=== PATIENT | female | born 1940 | race Caucasian/White ===

== ENCOUNTER → 2017-12-12 08:34 | Outpatient (CLI) | payer MEDICARE, BC, SELFPAY ==
[2017-12-12 10:11] LABS: Absolute Lymphocyte Count 1.01 X10^3/ul (0.83-4.51); Absolute Neutrophil Count 2.8 X10^3/uL (2.0-7.7); Basophil# 0.03 X10^3/uL; Basophil% 0.7 % (0-1); Eosinophil# 0.26 X10^3/uL; Eosinophils% 5.8 % (0-5); Hematocrit 37.4 % (37-47); Hemoglobin 11.9 g/dl (12.0-15.0); Lymphocyte # 1.01 X10^3/ul (4.0); Lymphocyte % 22.6 % (19-41); Mean Corp Hgb Conc 31.8 g/gl (32-36); Mean Corpuscular Hgb 28.7 pg (27.0-32.0); Mean Corpuscular Volume 90.3 fL (81-99); Mean Platelet Vol. 11.3 fl (6.2-12.0); Monocyte# 0.41 X10^3/uL; Monocyte% 9.2 % (0-10); Neutrophil # 2.75 X10^3/uL (2.7-7.7); Neutrophil % 61.5 % (47-70); Platelet Count 225 K/mm3 (150-450); RBC Distribution Width CV 14.5 % (11.6-14.6); RBC Distribution Width SD 47.3 fl (35.1-43.9); Red Blood Count 4.14 M/mm3 (4.2-5.4); White Blood Count 4.5 K/mm3 (4.4-11.0)
[2017-12-12 10:12] LABS: POSITIVE COUNT NO; POSITIVE DIFFERENTIAL NO; POSITIVE MORPHOLOGY NO
[2017-12-12 11:01] LABS: ALB/GLOB Ratio 1.1 RATIO (0.9-2.4); AST(SGOT) 12 U/L (15-37); Alanine Aminotransfer ALT/SGPT 10 U/L (13-56); Albumin, Serum 3.4 g/dL (3.2-5.0); Alkaline Phosphatase 49 U/L (45-117); Anion Gap 9 (5-15); BUN 28 mg/dL (7-18); BUN/Creat Ratio 20.1 RATIO (10-20); Calcium,Total 8.4 mg/dL (8.5-10.1); Chloride 111 mmol/L (98-107); Cholesterol 214 mg/dL (200); Creatinine, Serum 1.39 mg/dL (0.55-1.02); EST Glomerular Filtration Rate 39 mL/min (>60); Est Glom Filt Rate - Afr Amer 47 mL/min (>60); Globulin 3.1 g/dL (2.2-4.2); Glucose 85 mg/dL (74-106); High Density Lipoprotein 71 mg/dL; Magnesium 2.4 mg/dL (1.6-2.6); Phosphorus 2.4 mg/dL (2.5-4.9); Potassium 5.1 mmol/L (3.5-5.1); Protein, Total 6.5 g/dL (6.4-8.2); Sodium Level 141 mmol/L (136-145); Thyroid Stim Hormone (TSH) 1.97 uIU/mL (0.358-3.74); Triglycerides 97 mg/dL; Very Low Density Lipoprotein 19 mg/dL (5-40)
[2017-12-14 08:35] LABS: Tacrolimus (FK506) 5.6 ng/mL (2.0-20.0)
== END ==
PROVIDERS: Family Provider Family Medicine; PCP Family Medicine; Visit Provider Family Medicine
DX: T86.10 Unspecified complication of kidney transplant (principal); E03.9 Hypothyroidism, unspecified; D89.9 Disorder involving the immune mechanism, unspecified; Z94.0 Kidney transplant status
CPT/HCPCS: 36415; 80053; 80061; 80197; 82306; 83735; 83970; 84100; 84443; 85025

== ENCOUNTER 2018-03-14 08:20 | Outpatient (RCR) | payer MEDICARE, BC, SELFPAY ==
[2018-03-14 09:23] LABS: Hematocrit 34.1 % (37-47); Mean Corp Hgb Conc 32.3 g/gl (32-36); Mean Corpuscular Hgb 29.6 pg (27.0-32.0); Mean Corpuscular Volume 91.7 fL (81-99); Mean Platelet Vol. 11.5 fl (6.2-12.0); Platelet Count 217 K/mm3 (150-450); RBC Distribution Width CV 14.9 % (11.6-14.6); RBC Distribution Width SD 48.2 fl (35.1-43.9); Red Blood Count 3.72 M/mm3 (4.2-5.4); Scan Indicated on CBC? Y/N NO; White Blood Count 4.5 K/mm3 (4.4-11.0)
[2018-03-14 09:50] LABS: Albumin, Serum 3.4 g/dL (3.2-5.0); BUN 25 mg/dL (7-18); Calcium,Total 8.3 mg/dL (8.5-10.1); Chloride 111 mmol/L (98-107); Creatinine, Serum 1.67 mg/dL (0.55-1.02); EST Glomerular Filtration Rate 32 mL/min (>60); Est Glom Filt Rate - Afr Amer 38 mL/min (>60); Glucose 90 mg/dL (74-106); Phosphorus 2.7 mg/dL (2.5-4.9); Potassium 4.7 mmol/L (3.5-5.1); Sodium Level 142 mmol/L (136-145)
[2018-03-27 11:08] LABS: Tacrolimus (FK506) 4.6 ng/mL (2.0-20.0)
== END 2018-03-14 10:00 | disposition home or self-care (01) ==
LOC: LAB 08:20
PROVIDERS: Family Provider Family Medicine; PCP Family Medicine
DX: Z94.0 Kidney transplant status (principal); D89.9 Disorder involving the immune mechanism, unspecified; D84.9 Immunodeficiency, unspecified
CPT/HCPCS: 36415; 80069; 80197; 85027

== ENCOUNTER 2018-06-14 09:04 | Outpatient (RCR) | payer MEDICARE, BC, SELFPAY ==
[2018-06-14 09:50] LABS: Absolute Lymphocyte Count 1.05 X10^3/ul (0.83-4.51); Absolute Neutrophil Count 2.8 X10^3/uL (2.0-7.7); Basophil# 0.03 X10^3/uL; Basophil% 0.6 % (0-1); Eosinophil# 0.34 X10^3/uL; Eosinophils% 7.1 % (0-5); Hematocrit 36.1 % (37-47); Hemoglobin 11.5 g/dl (12.0-15.0); Lymphocyte # 1.05 X10^3/ul (4.0); Mean Corp Hgb Conc 31.9 g/gl (32-36); Mean Corpuscular Hgb 28.8 pg (27.0-32.0); Mean Corpuscular Volume 90.5 fL (81-99); Mean Platelet Vol. 10.7 fl (6.2-12.0); Monocyte# 0.55 X10^3/uL; Monocyte% 11.5 % (0-10); Neutrophil % 58.6 % (47-70); Platelet Count 226 K/mm3 (150-450); RBC Distribution Width CV 14.4 % (11.6-14.6); RBC Distribution Width SD 47.6 fl (35.1-43.9); Red Blood Count 3.99 M/mm3 (4.2-5.4); White Blood Count 4.8 K/mm3 (4.4-11.0)
[2018-06-14 09:53] LABS: POSITIVE COUNT NO; POSITIVE DIFFERENTIAL NO; POSITIVE MORPHOLOGY NO
[2018-06-14 10:06] LABS: Albumin, Serum 3.4 g/dL (3.2-5.0); BUN 35 mg/dL (7-18); BUN/Creat Ratio 22.3 RATIO (10-20); Calcium,Total 8.2 mg/dL (8.5-10.1); Chloride 112 mmol/L (98-107); Creatinine, Serum 1.57 mg/dL (0.55-1.02); EST Glomerular Filtration Rate 34 mL/min (>60); Est Glom Filt Rate - Afr Amer 41 mL/min (>60); Glucose 91 mg/dL (74-106); Phosphorus 2.8 mg/dL (2.5-4.9); Potassium 4.7 mmol/L (3.5-5.1); Sodium Level 142 mmol/L (136-145)
== END 2018-06-14 10:00 | disposition home or self-care (01) ==
LOC: LAB 09:04
PROVIDERS: Family Provider Family Medicine; PCP Family Medicine
DX: Z94.0 Kidney transplant status (principal); D89.9 Disorder involving the immune mechanism, unspecified
CPT/HCPCS: 36415; 80069; 80197; 85025

== ENCOUNTER → 2018-07-23 14:35 | Outpatient (CLI) | payer MEDICARE, BC, SELFPAY ==
--- NOTE | 2018-07-23 14:36 | BI_ITS ---
MAMMOGRAPHY - BILATERAL SCREENING 3-D CECILIA SYNTHESIS REASON FOR EXAM: Female, 77 years old. Bilateral Screening 3-D tomosynthesis PERTINENT HISTORY: Asymptomatic. Left upper arm fistula has been removed since 2011. 2 kidney transplants. No significant family history. TECHNIQUE: 2-D mammograms and 3-D Cecilia synthesis of the breast (s) were performed. CAD was performed. COMPARISON: 06/13/2017, 05/03/2015 and 04/28/2014. FINDINGS: The breast composition is heterogeneously dense that can obscure small breast masses. Scattered numerous benign appearing mostly vascular calcifications are seen. No dense spiculated dominant masses or suspicious microcalcification cluster are identified. No new architectural distortion, asymmetric density, adenopathy, skin thickening or nipple retraction identified. No change subareolar heterogeneous increased density bilaterally. BI/SCREENING MAMM (CAD), BILAT IMPRESSION: No mammographic sign of malignancy. Routine yearly mammograms recommended. ASSESSMENT CATEGORY: BIRADS Category 2: Benign. A letter regarding these results will be sent to the patient by the facility within 30 days. FOLLOW UP RECOMMENDATION: Yearly follow up mammogram recommended. (A) Negative mammographic results should not deter biopsy as any palpable lesion if present should be followed based on clinical grounds and biopsy performed if clinically persistent for 3 months or increasing size. Approximately 10% of breast cancers are not detected by mammography. A normal mammogram should not delay biopsy of a clinically suspicious abnormality. Dense breast tissue may obscure neoplasm. Electronically Signed: Francis Khalil, at 20:28 EDT Tel , Service support ,
== END ==
PROVIDERS: Family Provider Family Medicine; PCP Family Medicine; Referring Provider Family Medicine; Visit Provider Family Medicine
DX: Z12.31 Encounter for screening mammogram for malignant neoplasm of breast (principal)
CPT/HCPCS: 77063; 77067

== ENCOUNTER 2018-09-15 08:52 | Outpatient (RCR) | payer MEDICARE, BC, SELFPAY ==
[2018-09-15 09:32] LABS: Hematocrit 35.5 % (37-47); Hemoglobin 11.6 g/dl (12.0-15.0); Mean Corp Hgb Conc 32.7 g/gl (32-36); Mean Corpuscular Hgb 29.5 pg (27.0-32.0); Mean Corpuscular Volume 90.3 fL (81-99); Mean Platelet Vol. 10.7 fl (6.2-12.0); Platelet Count 229 K/mm3 (150-450); RBC Distribution Width CV 14.3 % (11.6-14.6); RBC Distribution Width SD 47.6 fl (35.1-43.9); Red Blood Count 3.93 M/mm3 (4.2-5.4); White Blood Count 4.5 K/mm3 (4.4-11.0)
[2018-09-15 09:35] LABS: Scan Indicated on CBC? Y/N NO
[2018-09-15 09:47] LABS: Protein, Urine (Random) 226.1 mg/dL (<11.9); Protein:Creat Ratio 3277 mg/g CRE (0-200)
[2018-09-15 09:58] LABS: Albumin, Serum 3.4 g/dL (3.2-5.0); BUN 31 mg/dL (7-18); BUN/Creat Ratio 18.8 RATIO (10-20); Calcium,Total 9.2 mg/dL (8.5-10.1); Chloride 105 mmol/L (98-107); Creatinine, Serum 1.65 mg/dL (0.55-1.02); EST Glomerular Filtration Rate 32 mL/min (>60); Est Glom Filt Rate - Afr Amer 39 mL/min (>60); Glucose 91 mg/dL (74-106); Phosphorus 4.4 mg/dL (2.5-4.9); Potassium 4.6 mmol/L (3.5-5.1); Sodium Level 138 mmol/L (136-145)
[2018-09-18 08:55] LABS: Tacrolimus (FK506) 4.8 ng/mL (2.0-20.0)
--- OUTSIDE RECORDS SUMMARY | 2018-11-08 11:00 | XMS RPT_ITS ---
:1940 Author Organization OHIP Care Team Providers Name Role Phone MD EDNA KEVIN Admitting Unavailable MD EDNA KEVIN Attending Unavailable Dr. Bogdan Ware Referring Unavailable Madelyn, Kristen Primary Care Unavailable See, Osman Primary Care Unavailable Esa Osman Attending Unavailable See, Osman Referring Unavailable WILMAN MORATAYA Referring Unavailable See, Osman Primary Care Unavailable WILMAN MORATAYA Attending Unavailable WILMAN MORATAYA Attending Unavailable WILMAN MORATAYA Referring Unavailable See, Osman Primary Care Unavailable WILMAN MORATAYA Attending Unavailable WILMAN MORATAYA Referring Unavailable See, Osman Primary Care Unavailable See Osman Attending Unavailable See, Osman Referring Unavailable See, Osman Primary Care Unavailable PAPMARISSA HANNA Admitting Unavailable PAPOURLILI, MARISSA LONG Attending Unavailable PAPOURLILI, MARISSA LONG Admitting Unavailable PAPOURLILI, MARISSA LONG Attending Unavailable PAPOURLILI, MARISSA LONG Admitting Unavailable PAPOURLILI, MARISSA LONG Attending Unavailable PAPOURAS, MARISSA LONG Attending Unavailable OSMAN SEE Referring Unavailable [place] Admitting Unavailable [place] Attending Unavailable OSMAN SEE A Primary Care Unavailable [place] Admitting Unavailable [place] Attending Unavailable OSMAN SEE A Primary Care Unavailable [place] Admitting Unavailable [place] Attending Unavailable OSMAN SEE A Primary Care Unavailable [place] Attending Unavailable ESA, OSMAN A Referring Unavailable SEE, OSMAN A Primary Care Unavailable PROBLEMS PROBLEMS DATE TYPE CONDITION / CODE ATTENDING STATUS SOURCE 07/16/2018 Unknown Z94.0 - Kidney WILMAN MORATAYA Active [facility] transplant status / Community Z94.0(ICD-10) Hospital Repository 07/16/2018 Unknown D89.9 - Disorder WILMAN MORATAYA Active [facility] involving the Community immune mechanism, Hospital unspecified / Repository D89.9(ICD-10) 08/20/2016 Active Corral's esophagus PAPOURAS, Active [facility] without dysplasia / [facility] Other K22.70(ICD-10) [place] Repository 03/12/2018 Active Gastro-esophageal PAPOURAS, Active [facility] reflux disease with [facility] Other esophagitis / [place] K21.0(ICD-10) Repository 12/25/2017 Active Gastro-esophageal PAPOURAS, Active [facility] reflux disease [facility] Other without esophagitis [place] / K21.9(ICD-10) Repository 06/12/2018 Unknown T86.10 - Osman See Active [facility] Unspecified Community complication of Hospital kidney transplant / Repository T86.10(ICD-10) 10/22/2017 Active Diaphragmatic PAPOURAS, Active [facility] hernia without [facility] Other obstruction or [place] gangrene / Repository K44.9(ICD-10) 10/22/2017 Admitting Unknown / [place] Active [facility] diagnosis UNK(Unknown) [facility] Repository PROCEDURES PROCEDURES No Procedure Records FoundRESULTS RESULTS [facility]CO Observed: 09/12/2018 Status: COMPLETED Source: [facility] 12:00 AM [facility] REPOSITORY Letter Text Marissa Apple MD [address] [address] Dept: [phone] Dept September 12, 2018 Re: Julee Lincoln : [address] Osman See, This letter is to request MEDICAL clearance for the above named patient. Patient is scheduled for surgery on: 10/23/18 Type of surgery to be performed is: laparoscopic Asad fundoplication with hiatal hernia repair with possible mesh and an EGD and will be performed under general anesthesia. Thank you, Joann Diaz, RUPA for Marissa Apple MD Patient is considered: ____Low Risk ____Intermediate Risk ____High Risk Reason: Signature of Physician Date Please fax back as soon as possible to [phone]. CNPN Observed: 09/12/2018 Status: COMPLETED Source: [facility] 12:00 AM [facility] OTHER CAMPUS REPOSITORY Telephone ([facility]) JULEE LINCOLN ([id number]) 1940 Elysia JOLLY Date Time Provider Department 09/12/18 MARISSA APPLE [facility] During your visit today, we recorded the following information about you: Joann Diaz RN 09/12/2018 11:06 AM Signed Julee called today with a few questions on her mind in light of her pending lap Asad scheduled on 10/23/18. Her first concern was making sure that Dr. See has the paperwork for her medical clearance for her surgery. She has an appointment with him in the next week. I told her I would fax over the letter today. Julee's second concern is keeping her transplanted kidney safe during and after surgery. I recommended that she bring her own anti-rejection medications, so there is no delay and she can take her medications on time. We also discussed the need for PPIs after the Asad in light of her Corral's history. Julee is very concerned about taking daily PPIs and currently manages her GERD by taking a daily famotidine and if she is eating any trigger foods, then she takes a proton pump inhibitor, so typically she take a proton pump inhibitor twice a week. I told her I believed Dr. Apple will recommend medication after surgery, but I would ask him if it will be a proton pump inhibitor vs. an H2 carson. Julee's last question was whether she is staying overnight. I told her that in light of her age and transplanted kidney, I am fairly certain we will keep her to monitor her overnight. I told Julee I will get back to her with the answer about what medications we plan for her to take after surgery. She agreed with the plan. Pre-op clearance letter to Dr. Osman See faxed. Joann Apple MD 09/12/2018 12:08 PM Signed Given her renal issues, I would just recommend an H2 carson not a PPI. Joann Diaz RN 09/19/2018 12:28 PM Signed I called Julee and left her a message stating Dr. Apple recommends her maintanence GERD medication should be a H2 carson, like ranitidine, instead of a proton pump inhibitor, like Nexium. I left my contact information if she has any other questions. Joann Diaz RN Allergies As of Date: 09/12/2018 (No Known Allergies) Date Reviewed: 03/12/2018 Reviewed by: Marissa Apple - Fully Assessed Reason for Visit: Patient Question [8857] Prescriptions as of 09/12/2018 Sig: XANAX ORAL Take by mouth daily at bedtim* ESOMEPRAZOLE MAGNESIUM 20 MG * Take 1 capsule by mouth once * SUCRALFATE 1 GRAM TABLET Take 1 tablet by mouth before* ESOMEPRAZOLE MAGNESIUM 40 MG * Take 1 capsule by mouth once * FAMOTIDINE 40 MG TABLET Take 40 mg by mouth once cyndie* LISINOPRIL 2.5 MG TABLET Take 2.5 mg by mouth once ines* MAGNESIUM HYDROXIDE 400 MG (1* Take by mouth. MYCOPHENOLATE MOFETIL 500 MG * Take 2 tablets by mouth twice* TACROLIMUS 1 MG CAPSULE 2mg twice daily CHOLECALCIFEROL (VITAMIN D3) * Take 1,000 Units by mouth onc* * LEVOTHYROXINE 75 MCG TABLET Take one(1) tablet daily. 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 Gastroesophageal reflux disease [K21.9] INVALID FOR* More... Hiatal hernia [K44.9] INVALID FOR* More... GERD with esophagitis [K21.0] INVALID FOR* More... Encounter Status:Closed by JOANN DIAZ on 09/12/18 ESTABLISHED VISIT Observed: 08/20/2018 Status: UNK Source: [facility] (NEPHROLOGY) 11:06 AM [facility] REPOSIT[facility] Chief Complaint Patient is here to follow up S/P kidney transplant surgery History of Present Illness This is a 76 year old White female with past medical history significant for hypertension, dyslipidemia and End Stage Renal Disease secondary to unknown etiology. Patient underwent the 1st dono r renal transplant on 01/12/2009. The first kidney allograft got thrombosed and was removed right after surgery. Then she received the 2nd donor renal transplant, PHARMACY RESIDENT donor, on 03/08/2011. The sec ond kidney allograft is now about 6 year old. Baseline creatinine had been around 1.4-1.6. Julee had radiofrequency ablation procedures currently at [facility] for Corral's esophagus. She is going to have hiatal hernia surgery at [facility] on 10/23/2018. Patient is doing well overall. No new complaints. Denied chest pain, SOB, PATEL, Palpitation. Normal urination and bowel movement. Normal gait and no weakness of arms/legs. No cough, runny nose, sore thro at, cold symptoms, or rash. No hearing loss. Normal vision.No problems with his sleep, mood and function. No recent infection, hospitalization, surgery or ER visits. ROS : Review of system (14 systems) was done. See HPI. Otherwise were negative. Past medical Hx, Past Surgical Hx were reviewed. Pertinent history was mentioned in HPI. Family hx - no family hx of kidney disease Social hx - no hx of active smoking , alcohol and drug abuse Current med list and allergy hx - were reviewed There are no spiritual/cultural practices/values/needs that are important to know Initial Fall Risk Screening: The patient is not using an assistive device. Domestic Violence Screen: Does not feel threatened or abused physically, emotionally or sexually. Do you feel UNSAFE? The patient feels safe in the home. Depression/Suicide Screening: During the past 2 weeks, the patient has not felt down, depressed or hopeless. During the past 2 weeks, the patient has not felt little interest or pleasure in doing things. She has no thoughts of harming self. She has not had thoughts of harming others. Nutrition Screening: In the past month, there was not a day when I or anyone in my family went hungry because there was not enough food. Active Problems Immunosuppression (279.9) (D89.9) Kidney replaced by transplant (V42.0) (Z94.0) Added by Problem List Migration; 2013-05-08; Moved to [facility] Sep 06 2013 4:40PM Proteinuria (791.0) (R80.9) Screening for blood or protein in urine (V82.9) (Z13.89) Allergies No Known Drug Allergies Recorded By: Feli Hodgson; 06/03/2015 3:36:10 PM Current Meds Mycophenolate Mofetil 250 MG Oral Capsule; take 2 by mouth twice a day; Therapy: 03Jun2015 to (Evaluate:17Aug2018) Requested for: 25Oct2017; Last Rx:22Aug2017 Ordered Rx By: Edna Kevin; Dispense: 30 Days ; #:120 Capsule; Refill: 11;For: Kidney replaced by transplant; OMAR = N; Verified Transmission to [facility] Prograf 1 MG Oral Capsule; TAKE 2 CAPSULE Twice daily; Therapy: [id number] to (Evaluate:17Aug2018) Requested for: 25Oct2017; Last Rx:22Aug2017 Ordered Rx By: Edna Kevin; Dispense: 30 Days ; #:120 Capsule; Refill: 11;For: Kidney replaced by transplant; OMAR = Y; Verified Transmission to [facility] Lisinopril 2.5 MG Oral Tablet; TAKE 1 TABLET DAILY; Therapy: 01Sep2015 to (Evaluate:23Aug2018) Requested for: 25Oct2017; Last Rx:28Aug2017 Ordered Rx By: Edna Kevin; Dispense: 30 Days ; #:30 Tablet; Refill: 11;For: Kidney replaced by transplant, Proteinuria; OMAR = N; Verified Transmission to [facility] Famotidine 40 MG Oral Tablet; take daily when not taking omeprazole; Therapy: (Recorded:31Oyw1211) to Recorded Dispense: 0 Days ; #: Sufficient Tablet; Refill: 0; OMAR = N; Record; Last Updated By: Monie Higgins; 02/19/2017 10:27:54 AM Levothyroxine Sodium 75 MCG Oral Tablet; TAKE 1 TABLET DAILY; Therapy: 01Sep2015 to Recorded Dispense: 0 Days ; #: Sufficient Tablet; Refill: 0; OMAR = N; Record; Last Updated By: Feli Rizo; 09/01/2015 9:18:03 AM Magnesium Oxide 400 MG Oral Tablet; TAKE 1 TABLET DAILY; Therapy: (Recorded:52Hoi0649) to Recorded Dispense: 0 Days ; #: Sufficient Tablet; Refill: 0; OMAR = N; Record; Last Updated By: Monie Higgins; 02/19/2017 10:32:20 AM Omeprazole 20 MG Oral Capsule Delayed Release; TAKE 60 mg 7 days before RFA treatment and for 30 days after treatment; Therapy: 01Sep2015 to Recorded Dispense: 0 Days ; #: Sufficient Capsule Delayed Release; Refill: 0; OMAR = N; Record; Last Updated By: Monie Higgins; 02/19/2017 10:26:59 AM Prolia 60 MG/ML Subcutaneous Solution; INJECT SUBCUTANEOUSLY 60 MG / 1 ML EVERY 6 MONTHS; Therapy: (Recorded:22Aug2017) to Recorded Dispense: 0 Days ; #: Sufficient ML; Refill: 0; OMAR = N; Record; Last Updated By: Monie Higgins; 08/22/2017 9:53:49 AM Vitamin D3 1000 UNIT Oral Capsule; TAKE 1 CAPSULE Daily; Therapy: (Recorded:60Qvt7458) to Recorded Dispense: 0 Days ; #: Sufficient Capsule; Refill: 0; OMAR = N; Record; Last Updated By: Monie Higgins; 02/19/2017 10:24:00 AM Vitals Vital Signs Recorded: 20Aug2018 10:18AMRecorded: 20Aug2018 10:04AM Pwbwizdv901, RUE, Mkvkzac165 Oerajnnsr81, RUE, Qqvsqmy79 Blood Pressure Cuff SizeAdult Ghbmsqgmcpa09.8 F, Oral Heart Rate78 Height5 ft 1 in Nubvza173 lb 6.4 oz BMI Rodqoielro41.86 BSA Calculated1.47 O2 Lbhhdmnpry06, RA Physical Exam Vital signs - reviewed. Acceptable BP at this office visit. General Appearance - NAD, Good speech, oriented and alert HEENT - Supple. Not pale. No jaundice. No cervical lymphadenopathy. Pharynx and tonsils are not injected. CVS - RRR. Normal S1/S2. No murmur, click , rub or gallop Lungs- clear to auscultation bilaterally Abdomen - soft , not tender, no guarding, no rigidity. No hepatosplenomegaly. Normal bowel sounds. No masses and ascites. S/P Kidney transplant . Transplanted kidney is not tender. Musculoskeletal /Extremities - no edema. Full ROM. No joint tenderness. Neuro/Psych - appropriate mood and affect. Motor power V/V all extremities. CN I -XII were grossly intact. Skin - No visible rash Results/Data Lab on 06/14/18 was reviewed. See impression and plan Diagnoses/Problems Kidney replaced by transplant (V42.0) (Z94.0) Added by Problem List Migration; 2013-05-08; Moved to [facility] Sep 06 2013 4:40PM Anemia in chronic kidney disease (285.21) (N18.9,D63.1) Orders Kidney replaced by transplant Renew: Mycophenolate Mofetil 250 MG Oral Capsule; take 2 by mouth twice a day Rx By: Edna Kevin; Dispense: 30 Days ; #:120 Capsule; Refill: 11;For: Kidney replaced by transplant; OMAR = N; [facility]; Last Updated By: EqualEyes; 08/20/2018 10:51:32 AM Complete Blood Count; Specimen Source:Blood (BLD); Status:Active; Requested for:Recurring Schedule: 12/12/2018; 03/14/2019; 06/14/2019 ; Perform:Lab Services - Lab To Draw (Blood Test); Due:44Wez7263;Ordered; For:Kidney replaced by transplant; Ordered By:Edna Kevin; Renew: Tacrolimus 1 MG Oral Capsule; TAKE 2 CAPSULE Twice daily Rx By: Edna Kevin; Dispense: 30 Days ; #:120 Capsule; Refill: 11;For: Kidney replaced by transplant; OMAR = N; [facility]; Last Updated By: EqualEyes; 08/20/2018 10:51:31 AM Creatinine, Urine Spot; Status:Active; Requested for:76Ell9770; Perform:Lab Services - Lab To Draw (Non-Blood Test); Due:47Nli5568;Ordered; For:Kidney replaced by transplant; Ordered By:Edna Kevin; Renal Function Panel; Specimen Source:Blood (BLD); Status:Active; Requested for:Recurring Schedule: 12/12/2018; 03/14/2019; 06/14/2019 ; Perform:Lab Services - Lab To Draw (Blood Test); Due:95Jlw1821;Ordered; For:Kidney replaced by transplant; Ordered By:Edna Kevin; Tacrolimus; Specimen Source:Blood (BLD); Status:Active; Requested for:Recurring Schedule: 12/12/2018; 03/14/2019; 06/14/2019 ; Perform:Lab Services - Lab To Draw (Blood Test); Due:87Sdr3827;Ordered; For:Kidney replaced by transplant; Ordered By:Edna Kevin; Total Protein, Urine Spot; Status:Active; Requested for:31Xxw0820; Perform:Lab Services - Lab To Draw (Non-Blood Test); Due:14Dec2018;Ordered; For:Kidney replaced by transplant; Ordered By:Edna Kevin; Kidney replaced by transplant, Proteinuria Renew: Lisinopril 2.5 MG Oral Tablet; TAKE 1 TABLET DAILY Rx By: Edna Kevin; Dispense: 30 Days ; #:30 Tablet; Refill: 11;For: Kidney replaced by transplant, Proteinuria; OMAR = N; Verified Transmission to [facility]; Last Updated By: [employer]; 08/20/2018 10:52:24 AM Provider Impressions This is a 76 year old White female with past medical history significant for hypertension, dyslipidemia and End Stage Renal Disease secondary to unknown etiology. Patient underwent the 1st dono r renal transplant on 01/12/2009. The first kidney allograft got thrombosed and was removed right after surgery. Then she received the 2nd donor renal transplant, PHARMACY RESIDENT donor, on 03/08/2011. The sec ond kidney allograft is now about 6 year old. Baseline creatinine had been around 1.4-1.6. 1. ESRD S/P kidney transplant - Renal allograft function is stable. - Creatinine last check was 1.57 -Ensure adequate hydration - Avoid nephrotoxic medications, NSAIDs, and IV contrast. -Order UPC for next lab on 09/15/18 - On low dose lisinopril 2.5 mg daily for proteinuria. If UPC increases, would consider increasing lisinopril and watch K level 2. Immunosuppression -Tacrolimus level last check was 6.9 -Goal of tacrolimus trough level at 12 hours is 5-8 -Continue current immunosuppression regimen. - [facility] requested generic tacrolimus and MMF. New Rx were sent to [facility]. 3. Electrolytes -Acceptable from last lab drawn 4. Hypertension -Home BP had been acceptable -Encourage to monitor home BP -Continue current anti hypertensive medication 5. Bone Mineral Disease/Osteoporosis - Consider DEXA every 2-3 years , defer to PCP 9.Health maintenance - Flu shot during flu season annually - Cancer screening is up to date per the patient RTC 1 Year Patient requested to see Dr. Medina in [facility] since Dr. Mayer is now retired. Patient Discussion/Summary Signatures Electronically signed by : Edna Kevin MD; Aug 20 2018 11:06AM EST (Author) SCREENING MAMM (CAD), Observed: 07/23/2018 Status: F Source: ELRAMA BILAT 2:37 PM [facility] [place] [facility] Imaging Services [address] [place] [id number] SCREENING MAMM (CAD), BILAT MR#: [id number] Acct: [id number] Name: JULEE LINCOLN Rep #: [id number] : 1940 F 77 From: Francis Khalil MD PCP: Osman See MD Status: REG CLI Study: SCREENING MAMM (CAD), BILAT Date of Exam: 07/23/18 Exam# [id number] Ordering Dr: Osman See MD MAMMOGRAPHY - BILATERAL SCREENING 3-D BALJINDER SYNTHESIS REASON FOR EXAM: Female, 77 years old. Bilateral Screening 3-D tomosynthesis PERTINENT HISTORY: Asymptomatic. Left upper arm fistula has been removed since 2011. 2 kidney transplants. No significant family history. TECHNIQUE: 2-D mammograms and 3-D Baljinder synthesis of the breast (s) were performed. CAD was performed. COMPARISON: 06/13/2017, 05/03/2015 and 04/28/2014. FINDINGS: The breast composition is heterogeneously dense that can obscure small breast masses. Scattered numerous benign appearing mostly vascular calcifications are seen. No dense spiculated dominant masses or suspicious microcalcification cluster are identified. No new architectural distortion, asymmetric density, adenopathy, skin thickening or nipple retraction identified. No change subareolar heterogeneous increased density bilaterally. BI/SCREENING MAMM (CAD), BILAT IMPRESSION: No mammographic sign of malignancy. Routine yearly mammograms recommended. ASSESSMENT CATEGORY: BIRADS Category 2: Benign. A letter regarding these results will be sent to the patient by the facility within 30 days. FOLLOW UP RECOMMENDATION: Yearly follow up mammogram recommended. (A) Negative mammographic results should not deter biopsy as any palpable lesion if present should be followed based on clinical grounds and biopsy performed if clinically persistent for 3 months or increasing size. Approximately 10% of breast cancers are not detected by mammography. A normal mammogram should not delay biopsy of a clinically suspicious abnormality. Dense breast tissue may obscure neoplasm. Electronically Signed: Francis Grahamer, at 20:28 EDT Tel , Service support , CC: Osman See MD Healthcare Consulting Manager: Signed CNPN Observed: 04/21/2018 Status: COMPLETED Source: [facility] 12:00 AM [facility] OTHER [facility] REPOSITORY Telephone ([facility]) JULEE LINCOLN ([id number]) 1940 F KAQ Date Time Provider Department 04/21/18 MARISSA APPLE [facility] During your visit today, we recorded the following information about you: Joann Diaz, RUPA 04/21/2018 4:04 PM Signed Julee called and left a message asking me to call her back as she has some questions about surgery. I returned her call. Julee said she would like to proceed with the Asad surgery but does not want the surgery until October 2018. Dr. Apple and I talked about whether I would need another ablation or not. He feels I am healing a little slower due to my anti-rejection medication. Can I have another ablation in June and then I should be healed in time for surgery in October? I told uJlee I will forward the question to Dr. Apple as I did not see any mention of another ablation before surgery. I promised Julee I will get back to her in the next few days. She agreed with the plan. Joann Apple MD 04/22/2018 12:30 PM Signed Since there was no dyspalsia, she does not need another ablation prior to surgery. We just need to continue with her routine surveillance Joann Diaz RN 04/22/2018 4:20 PM Signed I called Julee back and let her know that Dr. Apple said she will not need another ablation prior to surgery. Julee said she would like to proceed with surgery in early October. She will have an appointment with her kidney transplant team in August (they have cleared her once for surgery) and in July with her PCP. I recommended to Julee that she move her appointment with her PCP to September and I will send him a request for medical clearance. She agreed with the plan. Joann Diaz RN Allergies As of Date: 04/21/2018 (No Known Allergies) Date Reviewed: 03/12/2018 Reviewed by: Marissa Apple - Fully Assessed Reason for Visit: Returning Patient's Call [[id number]] Prescriptions as of 04/21/2018 Sig: XANAX ORAL Take by mouth daily at bedtim* ESOMEPRAZOLE MAGNESIUM 20 MG * Take 1 capsule by mouth once * SUCRALFATE 1 GRAM TABLET Take 1 tablet by mouth before* ESOMEPRAZOLE MAGNESIUM 40 MG * Take 1 capsule by mouth once * FAMOTIDINE 40 MG TABLET Take 40 mg by mouth once cyndie* LISINOPRIL 2.5 MG TABLET Take 2.5 mg by mouth once ines* MAGNESIUM HYDROXIDE 400 MG (1* Take by mouth. MYCOPHENOLATE MOFETIL 500 MG * Take 2 tablets by mouth twice* TACROLIMUS 1 MG CAPSULE 2mg twice daily CHOLECALCIFEROL (VITAMIN D3) * Take 1,000 Units by mouth onc* * LEVOTHYROXINE 75 MCG TABLET Take one(1) tablet daily. 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 Gastroesophageal reflux disease [K21.9] INVALID FOR* More... Encounter Status:Closed by JOANN DIAZ on 04/21/18 PROGRESS Observed: 03/12/2018 Status: COMPLETED Source: [facility] 5:37 PM CLINIC OTHER CAMPUS REPOSITORY HNO ID: [id number] Author: Marissa Apple Service: (none) Author Type: Physician Type: Progress Notes Filed: 03/12/2018 5:41 PM Note Text: Julee Lincoln is a 77 year old female who is here for follow- up from her recent EGD. She is doing well. She is interested in potentially pursuing surgical therapy regarding her hiatal hernia. Her EGD did reveal hiatal hernia. Her Corral's esophagus is still present but not completely resolved. There is no dysplasia. These findings reviewed with her in detail. She does have a kidney transplant and had prior surgery off on the right for hernia as well. ALLERGIES No Known Allergies Current Outpatient Prescriptions: alprazolam (XANAX ORAL) Take by mouth daily at bedtime. esomeprazole (NEXIUM) 20 mg capsule Take 1 capsule by mouth once daily. Before bedtime. sucralfate (CARAFATE) 1 gram tablet Take 1 tablet by mouth before meals and at bedtime. Place tablet in 4 oz. of water, drink the dissolved tablet. esomeprazole (NEXIUM) 40 mg capsule Take 1 capsule by mouth once daily. famotidine (PEPCID) 40 mg tablet Take 40 mg by mouth once daily. lisinopril 2.5 mg tablet Take 2.5 mg by mouth once daily. Magnesium Hydroxide 400 mg (170 mg) chew Take by mouth. mycophenolate Mofetil (CELLCEPT) 500 mg tablet Take 2 tablets by mouth twice daily. tacrolimus (PROGRAF) 1 mg capsule 2mg twice daily Cholecalciferol, Vitamin D3, 3,000 unit tab Take 1,000 Units by mouth once daily. LEVOTHYROXINE 75 MCG TAB Take one(1) tablet daily. No current facility-administered medications for this visit. PHYSICAL EXAM: BP 124/54 Pulse 72 Ht 5' 0 (1.52m) Wt 110 lb (49.9kg) BMI 21.48 kg/(m2). General Appearance: Well appearing, alert, in no acute distress, well-hydrated, well nourished.. Eyes: Anicteric sclera. Pupils are equally round and reactive to light. Extraocular movements are intact. Skin: Skin texture and turgor normal, no suspicious rashes or lesions, Negative for jaundice or pallor. Neck: Supple, trachea midline Abdomen: Normal abdominal exam, Abdomen soft, non-tender. Bowel sounds normal. No masses, organomegaly, Negative CVA tenderness, well-healed right-sided incision for a kidney transplant. 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 Due to her medications for her renal transplant she is slightly increased risk for wound healing complications. She will always need surveillance regarding her Corral's esophagus. She understood.These include, but are not limited to bleeding, infection, other organ injury, esophageal injury, recurrent hernia, recurrent symptoms, gas bloat syndrome, cardiorespiratory problems and . She is staying about how she would like to proceed. If she desires to proceed with surgery, she will call and we'll make the appropriate arrangements. She would need clearance prior to proceeding. Marissa Apple M.D., F.A.C.S. CNOV Observed: 03/12/2018 Status: COMPLETED Source: [facility] 1:45 PM [facility] OTHER [place] REPOSITORY Office Visit ([facility]) JULEE LINCOLN ([id number]) 1940 F KAQ Date Time Provider Department 03/12/18 1:45 PM MARISSA APPLE [facility] During your visit today, we recorded the following information about you: Pulse Blood pressure Weight Height 72/minute 124/54 49.9 kg 1.524 m Joann Diaz RN 03/12/2018 2:44 PM Signed Discussed and reviewed laparoscopic Asad fundoplication, including all handouts in folder given to pt; all questions answered. Joann Apple MD 03/12/2018 5:41 PM Signed Julee Lincoln is a 77 year old female who is here for follow- up from her recent EGD. She is doing well. She is interested in potentially pursuing surgical therapy regarding her hiatal hernia. Her EGD did reveal hiatal hernia. Her Corral's esophagus is still present but not completely resolved. There is no dysplasia. These findings reviewed with her in detail. She does have a kidney transplant and had prior surgery off on the right for hernia as well. ALLERGIES No Known Allergies Current Outpatient Prescriptions: alprazolam (XANAX ORAL) Take by mouth daily at bedtime. esomeprazole (NEXIUM) 20 mg capsule Take 1 capsule by mouth once daily. Before bedtime. sucralfate (CARAFATE) 1 gram tablet Take 1 tablet by mouth before meals and at bedtime. Place tablet in 4 oz. of water, drink the dissolved tablet. esomeprazole (NEXIUM) 40 mg capsule Take 1 capsule by mouth once daily. famotidine (PEPCID) 40 mg tablet Take 40 mg by mouth once daily. lisinopril 2.5 mg tablet Take 2.5 mg by mouth once daily. Magnesium Hydroxide 400 mg (170 mg) chew Take by mouth. mycophenolate Mofetil (CELLCEPT) 500 mg tablet Take 2 tablets by mouth twice daily. tacrolimus (PROGRAF) 1 mg capsule 2mg twice daily Cholecalciferol, Vitamin D3, 3,000 unit tab Take 1,000 Units by mouth once daily. LEVOTHYROXINE 75 MCG TAB Take one(1) tablet daily. No current facility-administered medications for this visit. PHYSICAL EXAM: BP 124/54 Pulse 72 Ht 5' 0 (1.52m) Wt 110 lb (49.9kg) BMI 21.48 kg/(m2). General Appearance: Well appearing, alert, in no acute distress, well-hydrated, well nourished.. Eyes: Anicteric sclera. Pupils are equally round and reactive to light. Extraocular movements are intact. Skin: Skin texture and turgor normal, no suspicious rashes or lesions, Negative for jaundice or pallor. Neck: Supple, trachea midline Abdomen: Normal abdominal exam, Abdomen soft, non-tender. Bowel sounds normal. No masses, organomegaly, Negative CVA tenderness, well-healed right-sided incision for a kidney transplant. 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 Due to her medications for her renal transplant she is slightly increased risk for wound healing complications. She will always need surveillance regarding her Corral's esophagus. She understood.These include, but are not limited to bleeding, infection, other organ injury, esophageal injury, recurrent hernia, recurrent symptoms, gas bloat syndrome, cardiorespiratory problems and . She is staying about how she would like to proceed. If she desires to proceed with surgery, she will call and we'll make the appropriate arrangements. She would need clearance prior to proceeding. Marissa Apple M.D., F.A.C.S. Referring Provider: OSMAN SEE [[id number]] Allergies As of Date: 03/12/2018 (No Known Allergies) Date Reviewed: 03/12/2018 Reviewed by: Marissa Apple - Fully Assessed Primary Visit Diagnosis:Hiatal hernia [K44.9] Other Visit Diagnoses:GERD with esophagitis [K21.0] 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 [K22.70] Prescriptions as of 03/12/2018 Sig: XANAX ORAL Take by mouth daily at bedtim* ESOMEPRAZOLE MAGNESIUM 20 MG * Take 1 capsule by mouth once * SUCRALFATE 1 GRAM TABLET Take 1 tablet by mouth before* ESOMEPRAZOLE MAGNESIUM 40 MG * Take 1 capsule by mouth once * FAMOTIDINE 40 MG TABLET Take 40 mg by mouth once cyndie* LISINOPRIL 2.5 MG TABLET Take 2.5 mg by mouth once ines* MAGNESIUM HYDROXIDE 400 MG (1* Take by mouth. MYCOPHENOLATE MOFETIL 500 MG * Take 2 tablets by mouth twice* TACROLIMUS 1 MG CAPSULE 2mg twice daily CHOLECALCIFEROL (VITAMIN D3) * Take 1,000 Units by mouth onc* * LEVOTHYROXINE 75 MCG TABLET Take one(1) tablet daily. 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 Gastroesophageal reflux disease [K21.9] INVALID FOR* More... Visit Notes: >> Joann Diaz RN SatMarch 12, 2018 2:44 PM Status: Signed Discussed and reviewed laparoscopic Asad fundoplication, including all handouts in folder given to pt; all questions answered. Joann Diaz RN Disposition: Return for After surgery. Follow-up and Disposition History Recorded Questionnaire: AG GERD HEALTH RELATED QUALITY OF LIFE Surgery/Baclofen dose -> On PPI'S 1. How bad is the heartburn? -> 2 Notice/bothersome not daily 2. Heartburn when lying down? -> 2 Notice/bothersome not daily 3. Heartburn when standing up? -> 0 No Symptoms 4. Heartburn after meals? -> 0 No Symptoms 5. Does heartburn change your diet? -> 0 No Symptoms 6. Does heartburn wake you from sleep? -> 2 Notice/bothersome not daily 7. Do you have difficulty swallowing -> 0 No Symptoms 8. Do you have pain with swallowing? -> 0 No Symptoms 9. If you take medication, does this affect your daily life? -> 3 Bothersome daily 10. How bad is the regurgitation? -> 2 Notice/bothersome not daily 11. Regurgitation when lying down? -> 2 Notice/bothersome not daily 12. Regurgitation when standing up? -> 0 No Symptoms 13. Regurgitation after meals? -> 0 No Symptoms 14. Does regurgitation change your diet? -> 0 No Symptoms 15. Does regurgitation wake you from sleep? -> 2 Notice/bothersome not daily TOTAL - HEARTBURN 1-9 -> 6 TOTAL - REGURG 10-15 -> 6 Total -> 12 16. How satisfied are you with your present condition -> Dissatisfied Letter Text Encounter Status:Closed by MARISSA APPLE MD on 03/12/18 ANES POST Observed: 03/05/2018 Status: COMPLETED Source: [facility] 11:56 AM [facility] OTHER CAMPUS REPOSITORY O ID: [id number] Author: Jj Freeman Service: Anesthesiology Author Type: Physician Type: Anesthesia PostOp Filed: 03/05/2018 11:57 AM Note Text: POST ANESTHESIA EVALUATION NOTE SERVICE DATE: 03/05/2018 SERVICE TIME: 11:56 AM : 1940 Vitals: 03/05/18 0932 Temp: 36.2 ?C (97.1 ?F) 03/05/18 0932 03/05/18 0937 03/05/18 1135 03/05/18 1148 BP: 118/58 111/52 101/51 (!) 405/56 03/05/18 0932 03/05/18 0937 03/05/18 1135 03/05/18 1148 Pulse: 65 63 64 (!) 52 03/05/18 0932 03/05/18 0937 03/05/18 1135 03/05/18 1148 Resp: 16 14 16 16 03/05/18 0937 03/05/18 1135 03/05/18 1142 03/05/18 1148 SpO2: 100% 100% 95% 95% Validated Vital Signs: Yes POST ANES STATUS: No apparent anesthetic complications. The patient is appropriately hydrated with stable respiratory and cardiovascular status. Patient has safe and adequate airway control. The patient has appropriate pain relief and no significant post operative nausea or vomiting. The patient has achieved baseline mental status. Further assessment by Anesthesia Service: None Other Remarks: SIGNATURE: Jj Freeman MD PATIENT NAME: Julee Lincoln DATE: March 05, 2018 TIME: 11:56 AM PAGER/CONTACT #: [phone] PT ED Observed: 03/05/2018 Status: COMPLETED Source: [facility] 11:44 AM [facility] REPOSITORY HNO ID: [id number] Author: Nunu Mancilla) RUPA Cm Service: Nursing Author Type: Registered Nurse Type: Patient Education Filed: 03/05/2018 11:45 AM Note Text: POST OP LEARNING RESPONSE INSTRUCTION PROVIDED TO: Patient and family member METHOD OF INSTRUCTION: Individual instruction Written instruction - handouts PATIENT / FAMILY RESPONSE: Verbalizes understanding of: POST-PROCEDURE INSTRUCTIONS-Correct actions to take to reduce post procedure complications FOLLOW-UP PLAN: Patient instructed to call with any further issues SUPPLEMENTAL MATERIAL: None REFERRAL (RECOMMENDATION): None Electronically Signed By: Nunu Cm RN In Department: [facility] BRIEF OP NOT Observed: 03/05/2018 Status: COMPLETED Source: [facility] 11:36 AM [facility] REPOSITORY HNO ID: [id number] Author: Marissa Apple Service: General Surgery Author Type: Physician Type: Brief Op Note Filed: 03/05/2018 11:38 AM Note Text: BRIEF OPERATIVE / PROCEDURE NOTE LOG ID: [id number] SURGERY/PROCEDURE DATE: 03/05/2018 INCISION/PROCEDURE START TIME: 11:14 AM INCISION CLOSE/PROCEDURE END TIME: 11:27 AM SURGEON(S)/PROCEDURALIST(S) AND ONION TIER(S): Surgeon(s) and Role: * Marissa Apple - Primary No Additional Staff PROCEDURE(S): EGD +/- Dilatation and Biopsy and Manometry ANESTHESIA: Monitored Anesthesia Care FINDINGS: Hill Grade 4, 3 cm Corral's esophagus ESTIMATED BLOOD LOSS: None SPECIMENS: GE junction, esophagus COMPLICATIONS: None PRE-OP/PRE-PROCEDURE DIAGNOSIS: Corral's esophagus, GERD, hiatal hernia POST-OP/POST-PROCEDURE DIAGNOSIS: GERD, hiatal hernia, Corral's esophagus SIGNATURE: Mairssa Apple MD PATIENT NAME: Julee Lincoln DATE: March 05, 2018 TIME: 11:36 AM PAGER/CONTACT #: [phone] PREOP Observed: 03/05/2018 Status: COMPLETED Source: [facility] 10:38 AM [facility] OTHER CAMPUS REPOSITORY O ID: [id number] Author: Jj Freeman Service: Anesthesiology Author Type: Physician Type: Anesthesia PreOp Filed: 03/05/2018 10:40 AM Note Text: ANESTHESIOLOGY DAY OF SURGERY NOTE SERVICE DATE: 03/05/2018 SERVICE TIME: 10:38 AM : 1940 Procedure(s) (LRB): EGD WITH BIOPSY (Left) Surgeon(s): Marissa Apple Estimated body mass index is 20.9 kg/m? as calculated from the following: Height as of this encounter: 152.4 cm (5'). Weight as of this encounter: 48.5 kg (107 lb). Most recent hematocrit and potassium results: Hematocrit 29.0 12/06/2004 Potassium 4.4 12/06/2004 ANES DOS/PREOP NOTE: Vitals: 03/05/18 0932 03/05/18 0937 BP: 118/58 111/52 Pulse: 65 63 Resp: 16 14 Temp: 36.2 ?C (97.1 ?F) TempSrc: Oral SpO2: 96% 100% Weight: 48.5 kg (107 lb) Height: 152.4 cm (5') ACTIVE PROBLEM LIST Chronic Kidney Disease (Ckd) End Stage Renal Disease (Hcc) Mechanical Complication of Other Vascular Device, Implant, and Graft Benign Neoplasm of Colon Anemia, Unspecified Diverticulosis of Colon (Without Mention of Hemorrhage) Internal Hemorrhoids Without Mention of Complication Blood in Stool Hemorrhage of Rectum and Anus Esophageal Reflux Hypoproteinemia (Hcc) Family History of GI Malignancy Personal History of Colonic Polyps Corral's Esophagus Without Dysplasia Hernia, Hiatal Gastroesophageal Reflux Disease PAST MEDICAL HISTORY Diagnosis Date - Anemia in chronic kidney disease(285.21) - Anemia, unspecified 12/18/05 - Corral's esophagus determined by biopsy - Benign neoplasm of colon 2002 by colonoscopy - Chronic kidney disease (CKD) ; never had kidney bx - Diverticulosis of colon (without mention of hemorrhage) - Esophageal reflux - Generalized osteoarthrosis, unspecified site hands, but no frequent nsaids - GERD (gastroesophageal reflux disease) - Hemorrhage of rectum and anus - Hiatal hernia with gastroesophageal reflux - Internal hemorrhoids without mention of complication - Osteoporosis - Pure hypercholesterolemia due to CKD - Unspecified hypothyroidism PAST SURGICAL HISTORY Procedure Laterality Date - ARTERY-VEIN ANASTOMOSIS 02-19-11 left - ; PARATHYROIDECTOMY/EXPL PARATHYRD 04/25 - COLONOS W/REM POLYP SNARE 12/18/05 - COLONOSCOP W/ OR W/O BRSH SPEC 12/26/00 Colonoscopy [facility] - COLONOSCOP W/ OR W/O BRSH SPEC 07/22/06 - COLONOSCOP W/ OR W/O BRSH SPEC 09/10/2017 Colonoscopy - COLONOSCOPY W/BX right and left sided diverticulosis, 10cm mucosal irritation (prolapse) - EGD W/O BRSH SPECIMEN W/BX 08/07/2017 - ESOPHAGOSCOPY LESION ABLATE 12/14/2016 - ESOPHAGOSCOPY LESION ABLATE 10/22/2016 - ESOPHAGOSCOPY LESION ABLATE 03/21/2017 - ESOPHAGOSCOPY LESION ABLATE 05/08/2017 - ESOPHAGOSCOPY LESION ABLATE 11/13/2017 - ESOPHAGOSCOPY LESION ABLATE 12/25/2017 - INS TUNNEL CVC W/O PORT >=5 01-30-11 RIGHT IJ - INSERTION CANNULA,ART-NAKUL CP INSUFF 07/13/05 LEFT CELESTINO FISTULA- - KIDNEY SURGERY HX - KIDNEY TRANSPLANT HX 02/2011 - PAST SURGICAL HISTORY OF 07/18 fistula put in left arm - PAST SURGICAL HISTORY OF 07/26 removal of fistula - PAST SURGICAL HISTORY OF 01/2009 failed kidney transplant - PAST SURGICAL HISTORY OF [address] 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 - REMOVAL OF TONSILS,12+ Y/O at age 40 - REPAIR INCISIONAL HERNIA 10/2011 at renal transplant site - TOTAL ABDOM HYSTERECTOMY 1989 with unilateral oophorectomy FAMILY HISTORY Problem Relation Age of Onset - Cancer Father non-Hodgkin's lymphoma - Heart Brother arrythmia - Cancer Son Hodgkins; - None Mother - Cancer Brother cancer of esophagus - None Brother - Cancer Other gastrointestinal - Cancer Paternal Grandfather gastrointestinal - Colon Cancer No Family History Social History: Social History Substance Use Topics - Smoking status: Never Smoker - Smokeless tobacco: Never Used - Alcohol use 3.0 oz/week Comment: occasional No current facility-administered medications on file prior to encounter. Current Outpatient Prescriptions on File Prior to Encounter: esomeprazole (NEXIUM) 20 mg capsule Take 1 capsule by mouth once daily. Before bedtime. famotidine (PEPCID) 40 mg tablet Take 40 mg by mouth once daily. lisinopril 2.5 mg tablet Take 2.5 mg by mouth once daily. Magnesium Hydroxide 400 mg (170 mg) chew Take by mouth. mycophenolate Mofetil (CELLCEPT) 500 mg tablet Take 2 tablets by mouth twice daily. tacrolimus (PROGRAF) 1 mg capsule 2mg twice daily Cholecalciferol, Vitamin D3, 3,000 unit tab Take 1,000 Units by mouth once daily. LEVOTHYROXINE 75 MCG TAB Take one(1) tablet daily. sucralfate (CARAFATE) 1 gram tablet Take 1 tablet by mouth before meals and at bedtime. Place tablet in 4 oz. of water, drink the dissolved tablet. esomeprazole (NEXIUM) 40 mg capsule Take 1 capsule by mouth once daily. Current Facility-Administered Medications: lactated ringers infusion 5-30 mL/hr INTRAVENOUS CONTINUOUS Marissa Gilmar Papouras Last Rate: 30 mL/hr at 03/05/18 0930 30 mL/hr at 03/05/18 0930 NaCl 0.9% irrigation solution X (OR/PROCEDURE) PRN Marissa Gilmar Papouras 60 mL at 03/05/18 1005 lidocaine 2 % (XYLOCAINE) X (OR/PROCEDURE) PRN Marissa Gilmar Papouras 8 mL at 03/05/18 0951 Allergies: ALLERGIES No Known Allergies DOS EXAM: Adequate NPO status: Yes Anesthetic risks, benefits, alternatives, personnel and consent discussed: Yes Patient agrees to proceed: Yes Previous Anesthesia: No history of adverse event. Airway Assessment: MP 2; Neck ROM: Full ROM without neurologic symptoms; Airway Evaluation: No significant abnormalities Symptoms of Sleep Apnea: Age over 50 (77 year old) Dentition: Teeth intact Molar crowns Additional Physical Exam: Lungs: Patient health status unchanged since recent history and physical. See history and physical for exam findings. Cardiac: Patient health status unchanged since recent history and physical. See history and physical for exam findings. Additional Pertinent Findings: N/A Blood Products: Not anticipated for this procedure. Anesthetic Plan: MAC with Sedation Pain Management Plan: Parenteral or Oral ASA Class: 3 Other Medical Problems: Hx CKD s/p transplant 2010 without current issues, GERD, hypothyroid. Had couple EGDs recently without issues Chronic Beta Carson medication administered within 24 hours: N/A I have interviewed and examined the patient. I have reviewed the medical record and/or the pre-anesthesia evaluation, pertinent labs, and test results. Significant changes in the patient's condition since the History and Physical, not otherwise documented in primary service progress notes: No This contains updated information obtained within 48 hours of Surgery/Procedure. SIGNATURE: Jj Freeman MD PATIENT NAME: Julee Lincoln DATE: March 05, 2018 TIME: 10:38 AM CSN: [id number] HISTORY PHYSICAL Observed: 03/05/2018 Status: COMPLETED Source: [facility] 10:05 AM [facility] OTHER CAMPUS REPOSITORY HNO ID: [id number] Author: Marissa Apple Service: General Surgery Author Type: Physician Type: HANDP Filed: 03/05/2018 10:07 AM Note Text: HISTORY AND PHYSICAL EXAMINATION SERVICE DATE: 03/05/2018 SERVICE TIME: 10:05 AM PRIMARY CARE PHYSICIAN: Osman See MD Subjective CHIEF COMPLAINT: GERD, corral's esophagus and hiatal hernia HPI: This is a 77 year old female who presents with GERD, hiatal hernia and Corral's esophagus FUNCTIONAL STATUS: Independent PAST MEDICAL HISTORY Diagnosis Date - Anemia in chronic kidney disease(285.21) - Anemia, unspecified 12/18/05 - Corral's esophagus determined by biopsy - Benign neoplasm of colon 2002 by colonoscopy - Chronic kidney disease (CKD) ; never had kidney bx - Diverticulosis of colon (without mention of hemorrhage) - Esophageal reflux - Generalized osteoarthrosis, unspecified site hands, but no frequent nsaids - GERD (gastroesophageal reflux disease) - Hemorrhage of rectum and anus - Hiatal hernia with gastroesophageal reflux - Internal hemorrhoids without mention of complication - Osteoporosis - Pure hypercholesterolemia due to CKD - Unspecified hypothyroidism PAST SURGICAL HISTORY Procedure Laterality Date - ARTERY-VEIN ANASTOMOSIS 02-19-11 left - ; PARATHYROIDECTOMY/EXPL PARATHYRD 04/25 - COLONOS W/REM POLYP SNARE 12/18/05 - COLONOSCOP W/ OR W/O BRSH SPEC 12/26/00 Colonoscopy [facility] - COLONOSCOP W/ OR W/O [facility]SH SPEC 07/22/06 - COLONOSCOP W/ OR W/O [facility] SPEC 09/10/2017 Colonoscopy - COLONOSCOPY W/BX right and left sided diverticulosis, 10cm mucosal irritation (prolapse) - EGD W/O [facility] SPECIMEN W/BX 08/07/2017 - ESOPHAGOSCOPY LESION ABLATE 12/14/2016 - ESOPHAGOSCOPY LESION ABLATE 10/22/2016 - ESOPHAGOSCOPY LESION ABLATE 03/21/2017 - ESOPHAGOSCOPY LESION ABLATE 05/08/2017 - ESOPHAGOSCOPY LESION ABLATE 11/13/2017 - ESOPHAGOSCOPY LESION ABLATE 12/25/2017 - INS TUNNEL CVC W/O PORT >=5 01-30-11 RIGHT IJ - INSERTION CANNULA,ART-NAKUL CP INSUFF 07/13/05 LEFT CELESTINO FISTULA- - KIDNEY SURGERY HX - KIDNEY TRANSPLANT HX 02/2011 - PAST SURGICAL HISTORY OF 07/18 fistula put in left arm - PAST SURGICAL HISTORY OF 07/26 removal of fistula - PAST SURGICAL HISTORY OF 01/2009 failed kidney transplant - PAST SURGICAL HISTORY OF [address] 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 - REMOVAL OF TONSILS,12+ Y/O at age 40 - REPAIR INCISIONAL HERNIA 10/2011 at renal transplant site - TOTAL ABDOM HYSTERECTOMY 1989 with unilateral oophorectomy FAMILY HISTORY Problem Relation Age of Onset - Cancer Father non-Hodgkin's lymphoma - Heart Brother arrythmia - Cancer Son Hodgkins; - None Mother - Cancer Brother cancer of esophagus - None Brother - Cancer Other gastrointestinal - Cancer Paternal Grandfather gastrointestinal - Colon Cancer No Family History Social History Substance Use Topics - Smoking status: Never Smoker - Smokeless tobacco: Never Used - Alcohol use 3.0 oz/week Comment: occasional Prescriptions Prior to Admission: alprazolam (XANAX ORAL) Take by mouth daily at bedtime. Disp: Rfl: 03/04/2018 at Unknown time esomeprazole (NEXIUM) 20 mg capsule Take 1 capsule by mouth once daily. Before bedtime. Disp: 90 capsule Rfl: 2 03/05/2018 at Unknown time famotidine (PEPCID) 40 mg tablet Take 40 mg by mouth once daily. Disp: Rfl: 03/04/2018 at Unknown time lisinopril 2.5 mg tablet Take 2.5 mg by mouth once daily. Disp: Rfl: 03/05/2018 at Unknown time Magnesium Hydroxide 400 mg (170 mg) chew Take by mouth. Disp: Rfl: 03/04/2018 at Unknown time mycophenolate Mofetil (CELLCEPT) 500 mg tablet Take 2 tablets by mouth twice daily. Disp: Rfl: 0 03/05/2018 at Unknown time tacrolimus (PROGRAF) 1 mg capsule 2mg twice daily Disp: Rfl: 03/05/2018 at Unknown time Cholecalciferol, Vitamin D3, 3,000 unit tab Take 1,000 Units by mouth once daily. Disp: Rfl: 0 03/04/2018 at Unknown time LEVOTHYROXINE 75 MCG TAB Take one(1) tablet daily. Disp: Rfl: 0 03/05/2018 at Unknown time sucralfate (CARAFATE) 1 gram tablet Take 1 tablet by mouth before meals and at bedtime. Place tablet in 4 oz. of water, drink the dissolved tablet. Disp: 56 tablet Rfl: 2 Unknown at Unknown time esomeprazole (NEXIUM) 40 mg capsule Take 1 capsule by mouth once daily. Disp: 30 capsule Rfl: 6 12/25/2017 at Unknown time ALLERGIES No Known Allergies COMPLETE REVIEW OF SYSTEMS: GENERAL: No weight loss, malaise or fevers RESPIRATORY: Negative for cough, hemoptysis, wheezing, COPD, dyspnea or shortness of breath CARDIOVASCULAR: Negative for chest pain, leg swelling, hypertension, CHF or palpitations GI: No nausea, vomiting, or diarrhea and See HPI Objective PHYSICAL EXAM: Physical Exam Performed: GENERAL: Alert, no distress, cooperative LUNGS: Lungs clear to auscultation, Good diaphragmatic excursion CARDIAC: Normal S1 and S2; no rubs, murmurs, or gallops ABDOMEN: Abdomen soft, non-tender, BS normal, No masses or organomegaly BP 111/52 Pulse 63 Temp (Src) 97.1 (Oral) Resp 14 Ht 5' 0 (1.52m) Wt 107 lb (48.5kg) SpO2 100% BMI 20.90 kg/(m2). DATA: Diagnostic tests reviewed for today's visit: No new labs Assessment/Plan GERD, Corral's esophagus, hiatal hernia. Esophageal manometry and EGD. The risks, benefits and complications were reviewed including but not limited to bleeding, infection, missing a lesion, effects of anesthesia and perforation possibly requiring an emergency surgery. Medication and Non-Pharmacologic VTE Prophylaxis/Anticoagulants VTE Prophylaxis: VTE prophylaxis appropriate SIGNATURE: Marissa Apple MD PATIENT NAME: Julee Lincoln DATE: March 05, 2018 TIME: 10:05 AM PAGER/CONTACT #: [phone] NURSING PROG Observed: 03/05/2018 Status: COMPLETED Source: [facility] 9:48 AM [facility] REPOSITORY HNO ID: [id number] Author: Cecilia (Rn) RUPA Conte Service: Nursing Author Type: Registered Nurse Type: Nursing Progress Note Filed: 03/05/2018 10:11 AM Note Text: The Patient was taken into the procedure room. Informed consent was verified and all allergy's reviewed prior to the procedure. The manometry catheter was inserted into the Right nares with out difficulty. Pt. Instructed on the possibility of congestion and some bleeding from her nose. Extubation of mano. Probe of Right nares went well. Pt tolerated well. OPERATIVE NO Observed: 03/05/2018 Status: COMPLETED Source: [facility] 12:00 AM [facility] REPOSITORY HNO ID: [id number] Author: Marissa Apple Service: General Surgery Author Type: Physician Type: Operative Report Filed: 03/05/2018 6:48 PM Note Text: [facility] - Operative Report SURGEON: Marissa Apple MD PATIENT NAME: JULEE LINCOLN CSN: [id number] DATE OF SURGERY: 03/05/2018 DATE OF : 1940 SEX/AGE: F/77 PATIENT TYPE: A [facility]: [facility] LOCATION: [facility] DATE OF SURGERY: 03/05/2018 SURGEON: Marissa Apple MD PREOPERATIVE DIAGNOSES: Corral esophagus, gastroesophageal reflux disease, hiatal hernia. POSTOPERATIVE DIAGNOSES: Corral esophagus, gastroesophageal reflux disease, hiatal hernia.. PROCEDURE: An EGD with biopsy and manometry with impedance. ANESTHESIA: MAC. HISTORY: The patient is a 77-year-old female who has reflux disease and hiatal hernia. She also has Corral esophagus. With the Corral esophagus, We recommended continued surveillance though she has had prior radiofrequency ablation. She was considering anti-reflux surgery, so manometry was suggested as well. The procedure was reviewed in detail including risks, benefits, complications inherent to the procedure. These include, but not limited to, bleeding, infection, missing a lesion, perforation, requiring emergency surgery. She understood and was agreeable to proceed. DESCRIPTION OF PROCEDURE: The patient was brought to the endoscopy suite. Routine monitoring was performed. She was placed in left lateral decubitus position. After adequate MAC anesthesia was obtained, the scope was inserted and passed down the esophagus. Z-line was noted to be at approximately 35 cm. There was an area of approximately 3 cm in length of concerning for Corral esophagus as visualized on the NBI. The scope was inserted. Retroflexed view did show a Hill grade 4. No other abnormalities were noted within the stomach or 2nd portion of the duodenum. Scope was then withdrawn. Multiple biopsies were obtained of the GE junction in a sequential manner, starting distally and moving proximally at the area of concern of the Corral esophagus. After the area appeared to be sampled appropriately, the air was aspirated out of the stomach. The scope was withdrawn. The patient tolerated the procedure well and was transferred to the recovery in stable condition. It should be noted that she already had her manometry with impedance performed . Marissa Apple MD Surgery WCP:modl /[id number] SURGICAL TISSUE EXAM Observed: 03/05/2018 Status: F Source: [facility] 12:00 AM [facility] REPOSITORY Test performed at [address] [address] NAME: JULEE LINCOLN REQUESTING: MARISSA APPLE M.D. FINAL DIAGNOSIS: GASTROESOPHAGEAL JUNCTION, BIOPSIES - ABUNDANT GLANDULAR MUCOSA WITH GOBLET CELL METAPLASIA AND ACID MUCIN PRODUCTION. ACTIVE INFLAMMATION. CHRONIC ESOPHAGITIS. SEE COMMENT. COMMENT: The findings may represent Corral's esophagus if endoscopically appropriate. The findings are not associated with dysplasia. An AB/PAS stain has been reviewed. CLINICAL INFORMATION: Corral's GROSS DESCRIPTION: GE junction biopsy Received in formalin labeled GE junction biopsy are multiple chowdary-red soft tissues aggregating to 1.4 x 0.6 x 0.3 cm, which are totally submitted in one cassette. Levels x 3 plus AB/PAS. BMP:skylar HERNANDEZ M.D., PATHOLOGIST (Electronic signature on file) Signed out: 03/07/2018 16:30 PRINTED: 03/07/2018 Page 1 of 1 Performed By: #### SURG #### [facility] [address] [place], [place] [address] [facility] Observed: 01/21/2018 Status: COMPLETED Source: [facility] 12:00 AM CLINIC OTHER CAMPUS REPOSITORY Patient:Julee Lincoln MRN: <[id number]> Height:5' 0(1.524 m) Weight:No patient weight recorded within the last 30 days. Outpatient Medications as of 03/05/18: alprazolam (XANAX ORAL) esomeprazole (NEXIUM) 20 mg capsule sucralfate (CARAFATE) 1 gram tablet esomeprazole (NEXIUM) 40 mg capsule famotidine (PEPCID) 40 mg tablet lisinopril 2.5 mg tablet Magnesium Hydroxide 400 mg (170 mg) chew mycophenolate Mofetil (CELLCEPT) 500 mg tablet tacrolimus (PROGRAF) 1 mg capsule Cholecalciferol, Vitamin D3, 3,000 unit tab LEVOTHYROXINE 75 MCG TAB Admission/Clinic Administered Medications as of 03/05/18: lactated ringers infusion NaCl 0.9% irrigation solution lidocaine 2 % (XYLOCAINE) lactated ringers infusion Problem List: Chronic kidney disease (CKD) [585] End stage renal disease (HCC) [N18.6] Mechanical complication of other vascular device, implant, and graft [T82.598A] Benign neoplasm of colon [D12.6] Anemia, unspecified [D64.9] Diverticulosis of colon (without mention of hemorrhage) [K57.30] Internal hemorrhoids without mention of complication [K64.8] Blood in stool [K92.1] Hemorrhage of rectum and anus [K62.5] Esophageal reflux [K21.9] 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] Family history of GI malignancy [Z80.0] Personal history of colonic polyps [Z86.010] 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 [K22.70] Hernia, hiatal [K44.9] Gastroesophageal reflux disease [K21.9] Allergies: No Known Allergies Date Verified:03/05/18 Lab Values No results within the last 30 days for the following basenames: K,HCT No progress notes entered within the past 30 days NURSING PROG Observed: 12/25/2017 Status: COMPLETED Source: [facility] 12:31 PM [facility] OTHER [place] REPOSITORY HNO ID: [id number] Author: Acrhie (Rn) RUPA Ferrer Service: Nursing Author Type: Registered Nurse Type: Nursing Progress Note Filed: 12/25/2017 12:33 PM Note Text: Upon discharge 200 cc IV fluid absorbed, LR d/mariely JT ANES POST Observed: 12/25/2017 Status: COMPLETED Source: [facility] 12:27 PM [facility] REPOSITORY HNO ID: [id number] Author: Osman Sharma Service: Anesthesiology Author Type: Physician Type: Anesthesia PostOp Filed: 12/25/2017 12:58 PM Note Text: POST ANESTHESIA EVALUATION NOTE SERVICE DATE: 12/25/2017 SERVICE TIME: 12:58 PM : 1940 Vitals: 12/25/17 1025 Temp: 36.4 ?C (97.5 ?F) 12/25/17 1023 12/25/17 1025 12/25/17 1141 12/25/17 1150 BP: 149/65 134/62 109/73 120/67 12/25/17 1023 12/25/17 1025 12/25/17 1141 12/25/17 1150 Pulse: 69 73 75 74 12/25/17 1023 12/25/17 1025 12/25/17 1141 12/25/17 1150 Resp: 18 16 18 18 12/25/17 1023 12/25/17 1025 12/25/17 1141 12/25/17 1150 SpO2: 100% 99% 99% 99% Validated Vital Signs: Yes POST ANES STATUS: No apparent anesthetic complications. The patient is appropriately hydrated with stable respiratory and cardiovascular status. Patient has safe and adequate airway control. The patient has appropriate pain relief and no significant post operative nausea or vomiting. The patient has achieved baseline mental status. Further assessment by Anesthesia Service: None Other Remarks: SIGNATURE: Osman Sharma MD PATIENT NAME: Julee Lincoln DATE: December 25, 2017 TIME: 12:58 PM PAGER/CONTACT #: [phone] BRIEF OP NOT Observed: 12/25/2017 Status: COMPLETED Source: [facility] 11:33 AM [facility] REPOSITORY HNO ID: [id number] Author: Ethan Cunningham Service: General Surgery Author Type: Resident Type: Brief Op Note Filed: 12/25/2017 11:33 AM Note Text: BRIEF OPERATIVE / PROCEDURE NOTE LOG ID: [id number] Surgery/Procedure Date: 12/25/2017 Incision/Procedure Start Time: 11:13 AM Incision Close/Procedure End Time: 11:32 AM Surgeon(s)/Proceduralist(s) and Border Patrol Agent(s): Surgeon(s) and Role: * Marissa Apple - Primary No Additional Staff Procedure(s): egd with RFA ablation Anesthesia: Monitored Anesthesia Care Findings: esophagitis Estimated Blood Loss: 0 ml Specimens: None Complications: None Pre-Op/Pre-Procedure Diagnosis: barretts esophagus, hiatal hernia Post-Op/Post-Procedure Diagnosis: * No post-op diagnosis entered * Same. SIGNATURE: Ethan Cunningham MD PATIENT NAME: Julee Lincoln DATE: December 25, 2017 TIME: 11:33 AM PAGER/CONTACT #: [phone] PREOP Observed: 12/25/2017 Status: COMPLETED Source: [facility] 10:40 AM [facility] OTHER CAMPUS REPOSITORY HNO ID: [id number] Author: Osman Sharma Service: Anesthesiology Author Type: Physician Type: Anesthesia PreOp Filed: 12/25/2017 10:41 AM Note Text: ANESTHESIOLOGY DAY OF SURGERY NOTE SERVICE DATE: 12/25/2017 SERVICE TIME: 10:40 AM : 1940 Procedure(s) (LRB): EGD, FLEXIBLE, TRANSORAL; WITH ABLATION OF TUMOR(S), POLYP(S), OR OTHER LESION(S) (INCLUDES PRE- AND POST-DILATION AND GUIDE WIRE PASSAGE, WHEN PERFORMED) (N/A) Surgeon(s): Marissa Apple Estimated body mass index is 21.48 kg/(m2) as calculated from the following: Height as of 09/25/17: 152.4 cm (5'). Weight as of this encounter: 49.9 kg (110 lb). Most recent hematocrit and potassium results: Hematocrit 29.0 12/06/2004 Potassium 4.4 12/06/2004 ANES DOS/PREOP NOTE: Vitals: 12/25/17 1023 12/25/17 1025 BP: 149/65 134/62 Pulse: 69 73 Resp: 18 16 Temp: 36.4 ?C (97.5 ?F) SpO2: 100% 99% Weight: 49.9 kg (110 lb) ACTIVE PROBLEM LIST Chronic Kidney Disease (Ckd) End Stage Renal Disease (Hcc) Mechanical Complication of Other Vascular Device, Implant, and Graft Benign Neoplasm of Colon Anemia, Unspecified Diverticulosis of Colon (Without Mention of Hemorrhage) Internal Hemorrhoids Without Mention of Complication Blood in Stool Hemorrhage of Rectum and Anus Esophageal Reflux Hypoproteinemia (Hcc) Family History of GI Malignancy Personal History of Colonic Polyps Corral's Esophagus Without Dysplasia Hernia, Hiatal Gastroesophageal Reflux Disease PAST MEDICAL HISTORY Diagnosis Date - Anemia in chronic kidney disease(285.21) - Anemia, unspecified 12/18/05 - Corral's esophagus determined by biopsy - Benign neoplasm of colon 2002 by colonoscopy - Chronic kidney disease (CKD) ; never had kidney bx - Diverticulosis of colon (without mention of hemorrhage) - Esophageal reflux - Generalized osteoarthrosis, unspecified site hands, but no frequent nsaids - GERD (gastroesophageal reflux disease) - Hemorrhage of rectum and anus - Hiatal hernia with gastroesophageal reflux - Internal hemorrhoids without mention of complication - Osteoporosis - Pure hypercholesterolemia due to CKD - Unspecified hypothyroidism PAST SURGICAL HISTORY Procedure Laterality Date - ARTERY-VEIN ANASTOMOSIS 02-19-11 left - ; PARATHYROIDECTOMY/EXPL PARATHYRD 04/25 - COLONOS W/REM POLYP SNARE 12/18/05 - COLONOSCOP W/ OR W/O BRSH SPEC 12/26/00 Colonoscopy [facility] - COLONOSCOP W/ OR W/O BRSH SPEC 07/22/06 - COLONOSCOP W/ OR W/O BRSH SPEC 09/10/2017 Colonoscopy - COLONOSCOPY W/BX right and left sided diverticulosis, 10cm mucosal irritation (prolapse) - EGD W/O [facility] SPECIMEN W/BX 08/07/2017 - ESOPHAGOSCOPY LESION ABLATE 12/14/2016 - ESOPHAGOSCOPY LESION ABLATE 10/22/2016 - ESOPHAGOSCOPY LESION ABLATE 03/21/2017 - ESOPHAGOSCOPY LESION ABLATE 05/08/2017 - ESOPHAGOSCOPY LESION ABLATE 11/13/2017 - INS TUNNEL CVC W/O PORT >=5 01-30-11 RIGHT IJ - INSERTION CANNULA,ART-NAKUL CP INSUFF 07/13/05 LEFT CELESTINO FISTULA- - KIDNEY SURGERY HX - KIDNEY TRANSPLANT HX 02/2011 - PAST SURGICAL HISTORY OF 07/18 fistula put in left arm - PAST SURGICAL HISTORY OF 07/26 removal of fistula - PAST SURGICAL HISTORY OF 01/2009 failed kidney transplant - PAST SURGICAL HISTORY OF [address] 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 - REMOVAL OF TONSILS,12+ Y/O at age 40 - REPAIR INCISIONAL HERNIA 10/2011 at renal transplant site - TOTAL ABDOM HYSTERECTOMY 1989 with unilateral oophorectomy FAMILY HISTORY Problem Relation Age of Onset - Cancer Father non-Hodgkin's lymphoma - Heart Brother arrythmia - Cancer Son Hodgkins; - None Mother - Cancer Brother cancer of esophagus - None Brother - Cancer Other gastrointestinal - Cancer Paternal Grandfather gastrointestinal - Colon Cancer No Family History Social History: Social History Substance Use Topics - Smoking status: Never Smoker - Smokeless tobacco: Never Used - Alcohol use 3.0 oz/week Comment: occasional No current facility-administered medications on file prior to encounter. Current Outpatient Prescriptions on File Prior to Encounter: esomeprazole (NEXIUM) 20 mg capsule Take 1 capsule by mouth once daily. Before bedtime. esomeprazole (NEXIUM) 40 mg capsule Take 1 capsule by mouth once daily. lisinopril 2.5 mg tablet Take 2.5 mg by mouth once daily. Magnesium Hydroxide 400 mg (170 mg) chew Take by mouth. zolpidem (AMBIEN) 10 mg tab mycophenolate Mofetil (CELLCEPT) 500 mg tablet Take 2 tablets by mouth twice daily. tacrolimus (PROGRAF) 1 mg capsule 2mg twice daily Cholecalciferol, Vitamin D3, 3,000 unit tab Take 1,000 Units by mouth once daily. sucralfate (CARAFATE) 1 gram tablet Take 1 tablet by mouth before meals and at bedtime. Place tablet in 4 oz. of water, drink the dissolved tablet. famotidine (PEPCID) 40 mg tablet Take 40 mg by mouth once daily. LEVOTHYROXINE 75 MCG TAB Take one(1) tablet daily. No current facility-administered medications for this encounter. Allergies: ALLERGIES No Known Allergies DOS EXAM: Adequate NPO status: Yes Anesthetic risks, benefits, alternatives, personnel and consent discussed: Yes Patient agrees to proceed: Yes Previous Anesthesia: No history of adverse event. Airway Assessment: MP 2; Neck ROM: Full ROM without neurologic symptoms; Airway Evaluation: No significant abnormalities Symptoms of Sleep Apnea: None Dentition: Teeth intact Additional Physical Exam: Lungs: Patient health status unchanged since recent history and physical. See history and physical for exam findings. Cardiac: Patient health status unchanged since recent history and physical. See history and physical for exam findings. Additional Pertinent Findings: N/A Blood Products: Not anticipated for this procedure. Anesthetic Plan: MAC with Sedation Pain Management Plan: Parenteral or Oral ASA Class: 3 Other Medical Problems: None Chronic Beta Carson medication administered within 24 hours: N/A I have interviewed and examined the patient. I have reviewed the medical record and/or the pre-anesthesia evaluation, pertinent labs, and test results. Significant changes in the patient's condition since the History and Physical, not otherwise documented in primary service progress notes: No This contains updated information obtained within 48 hours of Surgery/Procedure. SIGNATURE: Osman Sharma MD PATIENT NAME: Julee Lincoln DATE: December 25, 2017 TIME: 10:40 AM CSN: [id number] PT ED Observed: 12/25/2017 Status: COMPLETED Source: [facility] 10:26 AM [facility] REPOSITORY HNO ID: [id number] Author: Tracey Carson RN Service: Nursing Author Type: Registered Nurse Type: Patient Education Filed: 12/25/2017 10:26 AM Note Text: PRE OP LEARNING ASSESSMENT PROCEDURE/SURGERY: GI PROCEDURES: EGD and rfa READINESS TO LEARN COGNITIVE ABILITY: Alert and oriented MOTIVATION TO LEARN: Eager FAMILY SUPPORT: High - Very involved in pt care PATIENT LEARNS BEST BY: Individual Instruction Verbal Instruction FACTORS AFFECTING LEARNING: None PHYSICAL LIMITATIONS AFFECTING LEARNING: None Electronically Signed By: Tracey Carson RN In Department: [place] ENDO HISTORY PHYSICAL Observed: 12/25/2017 Status: COMPLETED Source: [facility] 10:13 AM [facility] REPOSITORY HNO ID: [id number] Author: Debbie Dc Service: General Surgery Author Type: Nurse Practitioner Type: HANDP Filed: 12/25/2017 10:30 AM Note Text: HISTORY AND PHYSICAL EXAMINATION SERVICE DATE: 12/25/2017 SERVICE TIME: 10:13 AM PRIMARY CARE PHYSICIAN: Osman See MD REASON FOR VISIT: Julee Lincoln is a 77 year old female who is scheduled for Procedure(s): EGD, FLEXIBLE, TRANSORAL; WITH ABLATION OF TUMOR(S), POLYP(S), OR OTHER LESION(S) (INCLUDES PRE- AND POST-DILATION AND GUIDE WIRE PASSAGE, WHEN PERFORMED) (N/A) at the request of Dr. Apple for routine HANDP. The patient has the following: ACTIVE PROBLEM LIST Chronic Kidney Disease (Ckd) End Stage Renal Disease (Hcc) Mechanical Complication of Other Vascular Device, Implant, and Graft Benign Neoplasm of Colon Anemia, Unspecified Diverticulosis of Colon (Without Mention of Hemorrhage) Internal Hemorrhoids Without Mention of Complication Blood in Stool Hemorrhage of Rectum and Anus Esophageal Reflux Hypoproteinemia (Hcc) Family History of GI Malignancy Personal History of Colonic Polyps Corral's Esophagus Without Dysplasia Hernia, Hiatal Gastroesophageal Reflux Disease Subjective CHIEF COMPLAINT: GERD, Corral's Esophagus, Hiatal Hernia HPI: 77 y.o white female presents with c/o the above. Has undergone multiple EGDs and ablations in past- most recent was October 2017. Continues to have Corral's esophagus but without dysplasia. Still c/o acid reflux if she doesn't take medications. Denies regurgitation or dysphagia. Takes Nexium and Pepcid daily. S/P kidney transplant in 2010- no dialysis currently. Denies abdominal pain, Nausea, vomiting, constipation, diarrhea, hemtochezia at this time. +family hx of esophageal cancer in brother. Multiple family members with CA hx of different types as well. Patient agrees to proceed with procedure. PAST MEDICAL HISTORY Diagnosis Date - Anemia in chronic kidney disease(285.21) - Anemia, unspecified 12/18/05 - Corral's esophagus determined by biopsy - Benign neoplasm of colon 2002 by colonoscopy - Chronic kidney disease (CKD) ; never had kidney bx - Diverticulosis of colon (without mention of hemorrhage) - Esophageal reflux - Generalized osteoarthrosis, unspecified site hands, but no frequent nsaids - GERD (gastroesophageal reflux disease) - Hemorrhage of rectum and anus - Hiatal hernia with gastroesophageal reflux - Internal hemorrhoids without mention of complication - Osteoporosis - Pure hypercholesterolemia due to CKD - Unspecified hypothyroidism PAST SURGICAL HISTORY Procedure Laterality Date - ARTERY-VEIN ANASTOMOSIS 02-19-11 left - ; PARATHYROIDECTOMY/EXPL PARATHYRD 04/25 - COLONOS W/REM POLYP SNARE 12/18/05 - COLONOSCOP W/ OR W/O BRSH SPEC 12/26/00 Colonoscopy [facility] - COLONOSCOP W/ OR W/O BRSH SPEC 07/22/06 - COLONOSCOP W/ OR W/O BRSH SPEC 09/10/2017 Colonoscopy - COLONOSCOPY W/BX right and left sided diverticulosis, 10cm mucosal irritation (prolapse) - EGD W/O BRS SPECIMEN W/BX 08/07/2017 - ESOPHAGOSCOPY LESION ABLATE 12/14/2016 - ESOPHAGOSCOPY LESION ABLATE 10/22/2016 - ESOPHAGOSCOPY LESION ABLATE 03/21/2017 - ESOPHAGOSCOPY LESION ABLATE 05/08/2017 - ESOPHAGOSCOPY LESION ABLATE 11/13/2017 - INS TUNNEL CVC W/O PORT >=5 01-30-11 RIGHT IJ - INSERTION CANNULA,ART-NAKUL CP INSUFF 07/13/05 LEFT CELESTINO FISTULA- - KIDNEY SURGERY HX - KIDNEY TRANSPLANT HX 02/2011 - PAST SURGICAL HISTORY OF 07/18 fistula put in left arm - PAST SURGICAL HISTORY OF 07/26 removal of fistula - PAST SURGICAL HISTORY OF 01/2009 failed kidney transplant - PAST SURGICAL HISTORY OF [address] 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 - REMOVAL OF TONSILS,12+ Y/O at age 40 - REPAIR INCISIONAL HERNIA 10/2011 at renal transplant site - TOTAL ABDOM HYSTERECTOMY 1989 with unilateral oophorectomy FAMILY HISTORY Problem Relation Age of Onset - Cancer Father non-Hodgkin's lymphoma - Heart Brother arrythmia - Cancer Son Hodgkins; - None Mother - Cancer Brother cancer of esophagus - None Brother - Cancer Other gastrointestinal - Cancer Paternal Grandfather gastrointestinal - Colon Cancer No Family History SOCIAL HISTORY: Social History Marital status: Spouse name: Years of education: Number of children: 2 Occupational History 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 Before bedtime. 12/24/2017 at Unknown time Yes esomeprazole (NEXIUM) 40 mg capsule Take 1 capsule by mouth once daily. 12/25/2017 at Unknown time Yes lisinopril 2.5 mg tablet Take 2.5 mg by mouth once daily. 12/25/2017 at 0800 Yes Magnesium Hydroxide 400 mg (170 mg) chew Take by mouth. 12/24/2017 at Unknown time Yes zolpidem (AMBIEN) 10 mg tab 12/24/2017 at Unknown time Yes mycophenolate Mofetil (CELLCEPT) 500 mg tablet Take 2 tablets by mouth twice daily. 12/25/2017 at 0800 Yes tacrolimus (PROGRAF) 1 mg capsule 2mg twice daily 12/25/2017 at 0800 Yes Cholecalciferol, Vitamin D3, 3,000 unit tab Take 1,000 Units by mouth once daily. 12/24/2017 at Unknown time Yes sucralfate (CARAFATE) 1 gram tablet Take 1 tablet by mouth before meals and at bedtime. Place tablet in 4 oz. of water, drink the dissolved tablet. famotidine (PEPCID) 40 mg tablet Take 40 mg by mouth once daily. LEVOTHYROXINE 75 MCG TAB Take one(1) tablet daily. 12/25/2017 at 0330 No medication comments found. ALLERGIES No Known Allergies REVIEW OF SYSTEMS: PAIN ASSESSMENT: Pain Pain Score: 0/10 Pain Assessment (RN/COMMERCIAL MORTGAGE BROKER): Assessment Tool: Verbal (Numeric Rating or Visual Analog Scale) General: Denies fever, chills, and unexpected weight change. Neuro: Denies dizziness and headaches. Respiratory: Denies SOB or productive cough Cardiovascular: Denies CP and palpitations. GI: see HPI : Denies dysuria. 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 +hysterectomy Endocrine: No history of diabetes ; + thyroid conditions. Hematology: Denies history of bleeding or clotting disorder. No known autoimmune disorders. Psych: Denies anxiety/depression. Musculoskeletal: Denies joint pain and swelling. Skin: Denies open sores and rashes. Objective PHYSICAL EXAM: VITALS: BP 134/62 Pulse 73 Resp 16 Wt 110 lb (49.9kg) SpO2 99% General: NAD. Cooperative. Skin: Skin is warm, no rashes, and no open sores. HEENT: Normocephalic. Cardiovascular: Normal S1 AND S2. RRR, No murmur. Lungs: CTA Bilaterally. No respiratory distress. Abdomen: Soft, nontender. Bowel sounds normal in all four quadrants. Extremities: No edema. Neurological: Alert and oriented to person, place, and time. Pulses: radial pulses +2 Diagnostic tests reviewed for today's visit: Lab Value Units Date High Low HB No results within date range. HCT No results within date range. WBC No results within date range. PLT No results within date range. NA No results within date range. K No results within date range. GLUC No results within date range. BUN No results within date range. CREAT No results within date range. PTSEC No results within date range. INR No results within date range. APTT No results within date range. ALT No results within date range. AST No results within date range. TBILI No results within date range. TSH No results within date range. Lab Value Units Date High Low HCGQT No results within date range. UHCG No results within date range. HCG, BODY* No results within date range. Lab Value Units Date High Low ABORHD No results within date range. ABSCREEN No results within date range. PENDING Assessment/Plan There is no known pertinent medical condition which may affect henry-operative course METS: Climb a flight of stairs or walk up a hill (5.50 METs) Patient denies any chest pain or undue shortness of breath with the above physical activity. ANESTHESIA FINDINGS: Intubation History: No history of difficult intubation Significant Anesthesia Considerations: None PLAN Diagnosis: 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 [K22.70], Gastroesophageal reflux disease [K21.9], Hernia, hiatal [K44.9] Planned Procedure: Procedure(s): EGD, FLEXIBLE, TRANSORAL; WITH ABLATION OF TUMOR(S), POLYP(S), OR OTHER LESION(S) (INCLUDES PRE- AND POST-DILATION AND GUIDE WIRE PASSAGE, WHEN PERFORMED) (N/A) The Following Tests/Procedures Have Been Initiated: insert IV, LR IVF per Dr. Apple orders (Tolerated LR for past EGDs) Planned Anesthetic: MAC SIGNATURE: Debbie Dc APRN PATIENT NAME: Julee Lincoln DATE: December 25, 2017 TIME: 10:13 AM PAGER/CONTACT #: OPERATIVE NO Observed: 12/25/2017 Status: COMPLETED Source: [facility] 12:00 AM CLINIC OTHER CAMPUS REPOSITORY O ID: [id number] Author: Marissa Apple Service: General Surgery Author Type: Physician Type: Operative Report Filed: 12/26/2017 11:42 AM Note Text: [facility] - Operative Report SURGEON: Marissa Apple MD PATIENT NAME: JULEE LINCOLN CSN: [id number] DATE OF SURGERY: 12/25/2017 DATE OF : 1940 SEX/AGE: F/77 PATIENT TYPE: A HOSP SVC: GENS LOCATION: [facility] DATE OF SURGERY: 12/25/2017 SURGEON: Marissa Apple MD PREOPERATIVE DIAGNOSES: 1. Corral esophagus. 2. Gastroesophageal reflux disease. 3. Hiatal hernia. POSTOPERATIVE DIAGNOSES: 1. Corral esophagus. 2. Gastroesophageal reflux disease. 3. Hiatal hernia. PROCEDURE: Esophagogastroduodenoscopy with radiofrequency ablation of the Corral esophagus. ONION TIER: Dr. Ethan Cunningham. ANESTHESIA: MAC. HISTORY: The patient is a 77-year-old female who has a 4 cm segment of Corral esophagus. She has had prior ablation. She presents today for followup ablation versus biopsy. Procedure was discussed with her in detail including all risks, benefits, and complications inherent to the procedure. These include but not limited to bleeding, infection, missing a lesion, perforation, requiring emergency surgery. She understood and was agreeable to proceed. DESCRIPTION OF PROCEDURE: The patient was brought to the endoscopy suite. After routine monitoring was performed, she was placed in left lateral decubitus position. After adequate MAC anesthesia was obtained, the scope was inserted and passed down the esophagus. The Z-line was noted. The Corral esophagus appeared to be improved, but still present. It is approximately 4 cm in length and not quite circumferential but close. Stomach showed no abnormalities. Retroflexed view did show this a Hill grade of 4. The scope was withdrawn. At this point, we elected to treat the Corral esophagus with the radiofrequency ablation again. We used the Ultra Long device. This was placed appropriately. We then went back into the esophagus and down at the GE junction. The Corral's esophagus was ablated 5 times at the first pass. The area was then scraped and then treated it again another 4 times in a typical fashion. Post procedure, the area looked adequately treated. Air was aspirated out of the stomach. The scope was withdrawn. The patient tolerated procedure well and transferred to the recovery room in stable condition. We will do repeat endoscopy in 2 months and we will evaluate how she is doing at that point. Marissa Apple MD Surgery WCP:modl /[id number] CBC W/DIFF, AUTOMATED Collected: 12/12/2017 Status: F Source: [place] 8:[place] [facility] [place] Order Comment: DR. SEE WANTS THE CBCD CMP VITD TSH MG PTH LIPID WANTS THE CBC CMP PHOS TACRO TYPE CODE TESTS RESULT OUT OF RANGE REFERENCE UNITS LAB L100.1000 4.4-11.0 K/mm3 Normal WBC 4.5 LAB L100.1200 4.2-5.4 M/mm3 Low RBC 4.14 LAB L100.1300 12.0-15.0 g/dl Low HGB 11.9 LAB L100.1400 37-47 % Normal HCT 37.4 LAB L100.1500 81-99 fL Normal MCV 90.3 LAB L100.1600 27.0-32.0 pg Normal MCH 28.7 LAB L100.1700 32-36 g/gl Low MCHC 31.8 LAB L100.1810 11.6-14.6 % Normal RDW CV 14.5 LAB L100.1820 35.1-43.9 fl High RDW SD 47.3 LAB L100.1900 150-450 K/mm3 Normal PLT 225 LAB L100.2000 6.2-12.0 fl Normal MPV 11.3 LAB L100.2100 47-70 % Normal NEUT% 61.5 LAB L100.2200 19-41 % Normal LY% 22.6 LAB L100.2300 0-10 % Normal MONO% 9.2 LAB L100.2400 0-5 % High EO% 5.8 LAB L100.2500 0-1 % Normal BASO% 0.7 LAB L100.2550 0.0-0.9 % Normal IM GRAN % 0.200 Result Comment: IG% - Immature Granulocytes (promyelocytes, myelocytes and metamyelocytes) > 1% indicates that a LEFT SHIFT is Present. LAB L100.2620 2.0-7.7 X10 3/uL Normal Absolute Neut 2.8 LAB L100.2720 0.83-4.51 X10 3/ul Normal Absolute Lymph 1.01 Performed By: #### L100.0100 #### [facility] [address] [place], [place], [address] COMPREHENSIVE METABOLIC Collected: 12/12/2017 Status: F Source: [facility] 8:50 AM [facility] [place] Order Comment: DR. SEE WANTS THE CBCD CMP VITD TSH MG PTH LIPID WANTS THE CBC CMP PHOS TACRO TYPE CODE TESTS RESULT OUT OF RANGE REFERENCE UNITS LAB L501.0100 74-106 mg/dL Normal GLU 85 Result Comment: Please note revised GLUCOSE reference range effective 2017. LAB L501.1000 7-18 mg/dL High BUN 28 LAB L501.1100 0.55-1.02 mg/dL High CREAT,SERUM 1.39 Result Comment: The validity of the calculated GFR AND GFRAA in patients over 70 years has not been determined. Clinical correlation is essential. LAB L501.1110 >60 mL/min Low EST GFR 39 Result Comment: Non- GFR Calc LAB L501.1115 >60 mL/min Low EST GFR - AA 47 Result Comment: GFR Calc LAB L501.1300 10-20 RATIO High BUN/CRE 20.1 LAB L501.1500 6.4-8.2 g/dL T Normal PROT 6.5 LAB L501.1800 3.2-5.0 g/dL Normal ALB 3.4 LAB L501.1950 2.2-4.2 g/dL Normal GLOB 3.1 LAB L501.2000 0.9-2.4 RATIO Normal A/G 1.1 LAB L501.2200 8.5-10.1 mg/dL Low CA 8.4 LAB L501.4100 15-37 U/L Low AST 12 LAB L501.4305 45-117 U/L Normal ALK P 49 LAB L501.4405 13-56 U/L Low ALT 10 Result Comment: Please note revised ALT reference range effective 2017. LAB L501.4600 0.20-1.00 mg/dL Normal T BILI 0.40 LAB L501.5300 136-145 mmol/L Normal NA 141 LAB L501.5600 3.5-5.1 mmol/L Normal K 5.1 LAB L501.5900 98-107 mmol/L High CL 111 LAB L501.6100 21.0-32.0 mmol/L Normal CO2 21.0 LAB L501.6200 5-15 Normal GAP 9 Performed By: #### L500.4050, L500.4100, L501.2300, L501.5200, L501.9520 #### [facility] [place], [address] LIPID PROFILE Collected: 12/12/2017 Status: F Source: [place] 8:50 AM [facility] Order Comment: DR. SEE WANTS THE CBCD CMP VITD TSH MG PTH LIPID WANTS THE CBC CMP PHOS TACRO TYPE CODE TESTS RESULT OUT OF RANGE REFERENCE UNITS LAB L501.4900 200 mg/dL High CHOL 214 Result Comment: <200 mg/dL Desirable 200-240 mg/dL Borderline >240 mg/dL High Risk LAB L501.5000 mg/dL Normal TRIG 97 Result Comment: The drugs N-Acetylcysteine and Metamizole may falsely depress this assay. Serum Triglycerides Reference Interval Normal <150 mg/dL Borderline high 150 - 199 mg/dL High 200 - 499 mg/dL Very High > or = 500 mg/dL LAB L501.6400 mg/dL Normal HDL 71 Result Comment: The drugs N-Acetylcysteine and Metamizole may falsely depress this assay. Reference Range HDL <40 mg/dL Low HDL Cholesterol HDL >or= 60 mg/dL High HDL Cholesterol LAB L501.6500 0-130 mg/dL Normal LDL 124 LAB L501.6600 5-40 mg/dL Normal VLDL 19 Performed By: #### L500.4050, L500.4100, L501.2300, L501.5200, L501.9520 #### [facility] [address] [place], [address] PHOSPHORUS Collected: 12/12/2017 Status: F Source: [place] 8:50 AM [facility] [place] Order Comment: DR. SEE WANTS THE CBCD CMP VITD TSH MG PTH LIPID WANTS THE CBC CMP PHOS TACRO TYPE CODE TESTS RESULT OUT OF RANGE REFERENCE UNITS LAB L501.2300 2.5-4.9 mg/dL Low PHOS 2.4 Performed By: #### L500.4050, L500.4100, L501.2300, L501.5200, L501.9520 #### [facility] [address] [place], [address] MAGNESIUM Collected: 12/12/2017 Status: F Source: [place] 8:50 AM [facility] [place] Order Comment: DR. SEE WANTS THE CBCD CMP VITD TSH MG PTH LIPID WANTS THE CBC CMP PHOS TACRO TYPE CODE TESTS RESULT OUT OF RANGE REFERENCE UNITS LAB L501.5200 1.6-2.6 mg/dL Normal MG 2.4 Result Comment: Please note revised Magnesium reference range effective 2017. Performed By: #### L500.4050, L500.4100, L501.2300, L501.5200, L501.9520 #### [facility] [address] [place], [address] THYROID STIM HORMONE Collected: 12/12/2017 Status: F Source: [place] ([facility]) 8:50 AM [facility] [place] Order Comment: DR. SEE WANTS THE CBCD CMP VITD TSH MG PTH LIPID WANTS THE CBC CMP PHOS TACRO TYPE CODE TESTS RESULT OUT OF RANGE REFERENCE UNITS LAB L501.9520 0.358-3.74 uIU/mL Normal TSH 1.97 Performed By: #### L500.4050, L500.4100, L501.2300, L501.5200, L501.9520 #### [facility] [address] [place], [address] PTHIN Collected: 12/12/2017 Status: F Source: [place] 8:50 AM [facility] [place] Order Comment: DR. SEE WANTS THE CBCD CMP VITD TSH MG PTH LIPID WANTS THE CBC CMP PHOS TACRO TYPE CODE TESTS RESULT OUT OF RANGE REFERENCE UNITS LAB L509.1000 18.4-80.1 pg/mL High PTHIN 223.0 Result Comment: Please Note: PTH INTACT METHOD AND REFERENCE RANGE CHANGE Effective 10/02/2017. Performed By: #### L509.1000 #### [facility] [address] [place], [address] VITAMIN D,25 HYDROXY Collected: 12/12/2017 Status: F Source: [place] 8:50 AM [facility] [place] Order Comment: DR. SEE WANTS THE CBCD CMP VITD TSH MG PTH LIPID WANTS THE CBC CMP PHOS TACRO TYPE CODE TESTS RESULT OUT OF RANGE REFERENCE UNITS LAB L506.1000 29.95-100.01 ng/mL Normal Vitamin D 47.0 25-OH Result Comment: Vitamin D 25(OH) Status Range Deficiency <20 ng/mL (50nmol/L) Insuffciency 20 - 30 ng/mL (50 - 75 nmol/L) Sufficiency 30 - 100 ng/mL (75 - 250 nmol/L) Toxicity >100 ng/mL (>250 nmol/L) Performed By: #### L506.1000 #### [facility] [address] [place], [address] TACROLIMUS (PROGRAF) Collected: 12/12/2017 Status: F Source: [facility] 8:50 AM [facility] [place] Order Comment: DR. SEE WANTS THE CBCD CMP VITD TSH MG PTH LIPID WANTS THE CBC CMP PHOS TACRO TYPE CODE TESTS RESULT OUT OF RANGE REFERENCE UNITS LAB L3380.1100 2.0-20.0 ng/mL Normal TACROLIMUS 5.6 Result Comment: Trough (immediately following transplant) 15.0 Trough (steady state, 2 weeks or more after transplant): 3.0 - 8.0 Detection Limit = 1.0 Performed by LC-MS/MS technology. Performed at: [address] [id number] Computer Scientist: Marissa Wells MD, Phone: [phone] Performed By: #### L3380.1000 #### [facility] (refer to report for specific site) refer to report for address and phone number HOSP Observed: 12/05/2017 Status: COMPLETED Source: [facility] 12:00 AM CLINIC OTHER CAMPUS REPOSITORY Patient:Julee Lincoln MRN: <[id number]> Height:5' 0(1.524 m) Weight:110 lb (49.896 kg) Outpatient Medications as of 12/25/17: esomeprazole (NEXIUM) 20 mg capsule sucralfate (CARAFATE) 1 gram tablet esomeprazole (NEXIUM) 40 mg capsule famotidine (PEPCID) 40 mg tablet lisinopril 2.5 mg tablet Magnesium Hydroxide 400 mg (170 mg) chew zolpidem (AMBIEN) 10 mg tab mycophenolate Mofetil (CELLCEPT) 500 mg tablet tacrolimus (PROGRAF) 1 mg capsule Cholecalciferol, Vitamin D3, 3,000 unit tab LEVOTHYROXINE 75 MCG TAB Admission/Clinic Administered Medications as of 12/25/17: ondansetron (PF) 4 mg injection (ZOFRAN) meperidine (PF) 12.5 mg injection (DEMEROL) Problem List: Chronic kidney disease (CKD) [585] End stage renal disease (HCC) [N18.6] Mechanical complication of other vascular device, implant, and graft [T82.598A] Benign neoplasm of colon [D12.6] Anemia, unspecified [D64.9] Diverticulosis of colon (without mention of hemorrhage) [K57.30] Internal hemorrhoids without mention of complication [K64.8] Blood in stool [K92.1] Hemorrhage of rectum and anus [K62.5] Esophageal reflux [K21.9] 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] Family history of GI malignancy [Z80.0] Personal history of colonic polyps [Z86.010] 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 [K22.70] Hernia, hiatal [K44.9] Gastroesophageal reflux disease [K21.9] Allergies: No Known Allergies Date Verified:12/25/17 Lab Values No results within the last 30 days for the following basenames: K,HCT No progress notes entered within the past 30 days ANES POST Observed: 11/13/2017 Status: COMPLETED Source: [facility] 12:55 PM CLINIC OTHER CAMPUS REPOSITORY HNO ID: [id number] Author: Saul Wilson Service: Anesthesiology Author Type: Physician Type: Anesthesia PostOp Filed: 11/13/2017 3:43 PM Note Text: POST ANESTHESIA EVALUATION NOTE SERVICE DATE: 11/13/2017 SERVICE TIME: 3:43 PM : 1940 Vitals: 11/13/17 1021 Temp: 36.3 ?C (97.4 ?F) 11/13/17 1021 11/13/17 1022 11/13/17 1211 11/13/17 1253 BP: 128/63 119/59 112/67 123/70 11/13/17 1021 11/13/17 1022 11/13/17 1211 11/13/17 1253 Pulse: 61 (!) 56 67 70 11/13/17 1021 11/13/17 1022 11/13/17 1211 11/13/17 1253 Resp: 18 18 14 18 11/13/17 1021 11/13/17 1022 11/13/17 1211 11/13/17 1253 SpO2: 100% 100% 99% 100% Validated Vital Signs: Yes POST ANES STATUS: No apparent anesthetic complications. The patient is appropriately hydrated with stable respiratory and cardiovascular status. Patient has safe and adequate airway control. The patient has appropriate pain relief and no significant post operative nausea or vomiting. The patient has achieved baseline mental status. Further assessment by Anesthesia Service: None Other Remarks: SIGNATURE: Saul Wilson MD PATIENT NAME: Julee Lincoln DATE: November 13, 2017 TIME: 3:43 PM PAGER/CONTACT #: [phone] PT ED Observed: 11/13/2017 Status: COMPLETED Source: [facility] 12:50 PM [facility] REPOSITORY HNO ID: [id number] Author: Rosalva (Rn) RUPA Browning Service: Gastroenterology Author Type: Registered Nurse Type: Patient Education Filed: 11/13/2017 12:53 PM Note Text: POST OP LEARNING RESPONSE INSTRUCTION PROVIDED TO: Patient and Family member METHOD OF INSTRUCTION: Written instruction - handouts Verbal instruction PATIENT / FAMILY RESPONSE: Information received as demonstrated by interest and questions FOLLOW-UP PLAN: Recommend - Recommend continued instruction and follow up as directed SUPPLEMENTAL MATERIAL: None REFERRAL (RECOMMENDATION): None Electronically Signed By: Rosalva Browning RN In Department: [place] ENDOegd with ablation, f/u with physician, diet and activity restrictions related to anesthesia and Ablation diet restrictions. Reasons to call physician with post proc emergent symptoms BRIEF OP NOT Observed: 11/13/2017 Status: COMPLETED Source: [facility] 12:06 PM [facility] REPOSITORY HNO ID: [id number] Author: Marissa Apple Service: General Surgery Author Type: Physician Type: Brief Op Note Filed: 11/13/2017 12:10 PM Note Text: BRIEF OPERATIVE / PROCEDURE NOTE LOG ID: [id number] SURGERY/PROCEDURE DATE: 11/13/2017 INCISION/PROCEDURE START TIME: 11:44 AM INCISION CLOSE/PROCEDURE END TIME: SURGEON(S)/PROCEDURALIST(S) AND ONION TIER(S): Surgeon(s) and Role: * Marissa Apple - Primary No Additional Staff PROCEDURE(S): EGD with RFA ANESTHESIA: Monitored Anesthesia Care FINDINGS: 4 cm Corral's esophagus ESTIMATED BLOOD LOSS: None SPECIMENS: * No specimens in log * COMPLICATIONS: None PRE-OP/PRE-PROCEDURE DIAGNOSIS: Corral's esophagus, hiatal hernia POST-OP/POST-PROCEDURE DIAGNOSIS: Same SIGNATURE: Marissa Apple MD PATIENT NAME: Julee [place] DATE: November 13, 2017 TIME: 12:06 PM PAGER/CONTACT #: ANES PREOP Observed: 11/13/2017 Status: COMPLETED Source: [facility] 11:10 AM [facility] OTHER CAMPUS REPOSITORY HNO ID: [id number] Author: Saul Wilson Service: Anesthesiology Author Type: Physician Type: Anesthesia PreOp Filed: 11/13/2017 11:13 AM Note Text: ANESTHESIOLOGY DAY OF SURGERY NOTE SERVICE DATE: 11/13/2017 SERVICE TIME: 11:10 AM : 1940 Procedure(s) (LRB): EGD, FLEXIBLE, TRANSORAL; WITH ABLATION OF TUMOR(S), POLYP(S), OR OTHER LESION(S) (INCLUDES PRE- AND POST-DILATION AND GUIDE WIRE PASSAGE, WHEN PERFORMED) (N/A) Surgeon(s): Marissa Apple Estimated body mass index is 22.46 kg/(m2) as calculated from the following: Height as of 09/25/17: 152.4 cm (5'). Weight as of 09/25/17: 52.2 kg (115 lb). Most recent hematocrit and potassium results: Hematocrit 29.0 12/06/2004 Potassium 4.4 12/06/2004 ANES DOS/PREOP NOTE: Vitals: 11/13/17 1021 11/13/17 1022 BP: 128/63 119/59 Pulse: 61 (!) 56 Resp: 18 Temp: 36.3 ?C (97.4 ?F) TempSrc: Oral SpO2: 100% 100% ACTIVE PROBLEM LIST Chronic Kidney Disease (Ckd) End Stage Renal Disease (Hcc) Mechanical Complication of Other Vascular Device, Implant, and Graft Benign Neoplasm of Colon Anemia, Unspecified Diverticulosis of Colon (Without Mention of Hemorrhage) Internal Hemorrhoids Without Mention of Complication Blood in Stool Hemorrhage of Rectum and Anus Esophageal Reflux Hypoproteinemia (Hcc) Family History of GI Malignancy Personal History of Colonic Polyps Corral's Esophagus Without Dysplasia Hernia, Hiatal Gastroesophageal Reflux Disease PAST MEDICAL HISTORY Diagnosis Date - Anemia in chronic kidney disease(285.21) - Anemia, unspecified 12/18/05 - Corral's esophagus determined by biopsy - Benign neoplasm of colon 2002 by colonoscopy - Chronic kidney disease (CKD) ; never had kidney bx - Diverticulosis of colon (without mention of hemorrhage) - Esophageal reflux - Generalized osteoarthrosis, unspecified site hands, but no frequent nsaids - GERD (gastroesophageal reflux disease) - Hemorrhage of rectum and anus - Hiatal hernia with gastroesophageal reflux - Internal hemorrhoids without mention of complication - Osteoporosis - Pure hypercholesterolemia due to CKD - Unspecified hypothyroidism PAST SURGICAL HISTORY Procedure Laterality Date - ARTERY-VEIN ANASTOMOSIS 02-19-11 left - ; PARATHYROIDECTOMY/EXPL PARATHYRD 04/25 - COLONOS W/REM POLYP SNARE 12/18/05 - COLONOSCOP W/ OR W/O BRSH SPEC 12/26/00 Colonoscopy [facility] - COLONOSCOP W/ OR W/O [facility] SPEC 07/22/06 - COLONOSCOP W/ OR W/O [facility]SH SPEC 09/10/2017 Colonoscopy - COLONOSCOPY W/BX right and left sided diverticulosis, 10cm mucosal irritation (prolapse) - EGD W/O [facility] SPECIMEN W/BX 08/07/2017 - ESOPHAGOSCOPY LESION ABLATE 12/14/2016 - ESOPHAGOSCOPY LESION ABLATE 10/22/2016 - ESOPHAGOSCOPY LESION ABLATE 03/21/2017 - ESOPHAGOSCOPY LESION ABLATE 05/08/2017 - INS TUNNEL CVC W/O PORT >=5 01-30-11 RIGHT IJ - INSERTION CANNULA,ART-NAKUL CP INSUFF 07/13/05 LEFT CELESTINO FISTULA- - KIDNEY SURGERY HX - KIDNEY TRANSPLANT HX 02/2011 - PAST SURGICAL HISTORY OF 07/18 fistula put in left arm - PAST SURGICAL HISTORY OF 07/26 removal of fistula - PAST SURGICAL HISTORY OF 01/2009 failed kidney transplant - PAST SURGICAL HISTORY OF [address] 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 - REMOVAL OF TONSILS,12+ Y/O at age 40 - REPAIR INCISIONAL HERNIA 10/2011 at renal transplant site - TOTAL ABDOM HYSTERECTOMY 1989 with unilateral oophorectomy FAMILY HISTORY Problem Relation Age of Onset - Cancer Father non-Hodgkin's lymphoma - Heart Brother arrythmia - Cancer Son Hodgkins; - None Mother - Cancer Brother cancer of esophagus - None Brother - Cancer Other gastrointestinal - Cancer Paternal Grandfather gastrointestinal - Colon Cancer No Family History Social History: Social History Substance Use Topics - Smoking status: Never Smoker - Smokeless tobacco: Never Used - Alcohol use 3.0 oz/week Comment: occasional No current facility-administered medications on file prior to encounter. Current Outpatient Prescriptions on File Prior to Encounter: esomeprazole (NEXIUM) 20 mg capsule Take 1 capsule by mouth once daily. Before bedtime. esomeprazole (NEXIUM) 40 mg capsule Take 1 capsule by mouth once daily. lisinopril 2.5 mg tablet Take 2.5 mg by mouth once daily. Magnesium Hydroxide 400 mg (170 mg) chew Take by mouth. zolpidem (AMBIEN) 10 mg tab mycophenolate Mofetil (CELLCEPT) 500 mg tablet Take 2 tablets by mouth twice daily. tacrolimus (PROGRAF) 1 mg capsule 2mg twice daily Cholecalciferol, Vitamin D3, 3,000 unit tab Take 1,000 Units by mouth once daily. LEVOTHYROXINE 75 MCG TAB Take one(1) tablet daily. sucralfate (CARAFATE) 1 gram tablet Take 1 tablet by mouth before meals and at bedtime. Place tablet in 4 oz. of water, drink the dissolved tablet. famotidine (PEPCID) 40 mg tablet Take 40 mg by mouth once daily. Current Facility-Administered Medications: lactated ringers infusion 5-30 mL/hr INTRAVENOUS CONTINUOUS Marissa Apple Last Rate: 30 mL/hr at 11/13/17 1027 30 mL/hr at 11/13/17 1027 lidocaine 10 mg/mL (1 %) 5 mg injection (XYLOCAINE) 0.5 mL INTRADERMAL ONCE Marissa Gilmar Paphubert Allergies: ALLERGIES No Known Allergies DOS EXAM: Adequate NPO status: Yes Anesthetic risks, benefits, alternatives, personnel and consent discussed: Yes Patient agrees to proceed: Yes Previous Anesthesia: No history of adverse event. Airway Assessment: MP 2; Neck ROM: Full ROM without neurologic symptoms; Airway Evaluation: No significant abnormalities Symptoms of Sleep Apnea: Age over 50 (77 year old) Dentition: Teeth intact Additional Physical Exam: Lungs: Patient health status unchanged since recent history and physical. See history and physical for exam findings. Cardiac: Patient health status unchanged since recent history and physical. See history and physical for exam findings. Additional Pertinent Findings: N/A Blood Products: Not anticipated for this procedure. Anesthetic Plan: MAC with Sedation Pain Management Plan: Parenteral or Oral ASA Class: 3 Other Medical Problems: hx kidney transplant 2010, stable per patient Chronic Beta Carson medication administered within 24 hours: N/A I have interviewed and examined the patient. I have reviewed the medical record and/or the pre-anesthesia evaluation, pertinent labs, and test results. Significant changes in the patient's condition since the History and Physical, not otherwise documented in primary service progress notes: No This contains updated information obtained within 48 hours of Surgery/Procedure. SIGNATURE: Saul Wilson MD PATIENT NAME: Julee [place] DATE: November 13, 2017 TIME: 11:10 AM CSN: [id number] PT ED Observed: 11/13/2017 Status: COMPLETED Source: [facility] 10:29 AM [facility] REPOSITORY HNO ID: [id number] Author: Sylvia Friedman RN Service: (none) Author Type: Registered Nurse Type: Patient Education Filed: 11/13/2017 10:29 AM Note Text: ONGOING PATIENT EDUCATION TOPIC Reinforced: sedation Patient Name: Julee [place] Patient Location: [place] Readiness To Learn Motivation To Learn: Interested Instruction Provided To: Patient and family member Learning Response Patient/Family Response: Verbalizes understanding of: POST-PROCEDURE INSTRUCTIONS-Correct actions to take to reduce post procedure complications Method of Instruction: Verbal instruction Follow-Up Plan: Reinforce - Repeat previous content Electronically signed by: Sylvia Friedman RN HISTORY PHYSICAL Observed: 11/13/2017 Status: COMPLETED Source: [facility] 9:22 AM [facility] OTHER [place] REPOSITORY HNO ID: [id number] Author: Yumiko Serra Service: General Surgery Author Type: Nurse Practitioner Type: HANDP Filed: 11/13/2017 11:32 AM Note Text: HISTORY AND PHYSICAL EXAMINATION SERVICE DATE: 11/13/2017 SERVICE TIME: 929 PRIMARY CARE PHYSICIAN: Osman See MD REASON FOR VISIT: Julee [place] is a 77 year old female who is scheduled for Procedure(s): EGD, FLEXIBLE, TRANSORAL; WITH ABLATION OF TUMOR(S), POLYP(S), OR OTHER LESION(S) (INCLUDES PRE- AND POST-DILATION AND GUIDE WIRE PASSAGE, WHEN PERFORMED) (N/A) - Dr. Apple The patient has the following: ACTIVE PROBLEM LIST Chronic Kidney Disease (Ckd) End Stage Renal Disease (Hcc) Mechanical Complication of Other Vascular Device, Implant, and Graft Benign Neoplasm of Colon Anemia, Unspecified Diverticulosis of Colon (Without Mention of Hemorrhage) Internal Hemorrhoids Without Mention of Complication Blood in Stool Hemorrhage of Rectum and Anus Esophageal Reflux Hypoproteinemia (Hcc) Family History of GI Malignancy Personal History of Colonic Polyps Corral's Esophagus Without Dysplasia Hernia, Hiatal Gastroesophageal Reflux Disease Subjective CHIEF COMPLAINT: Corral's Esophagus HPI: 77 year old female reports with corral's esophagus, GERD, and hiatal hernia. Patient has had 4 prior radiofrequency ablations. Last EGD was 08/07/2017. Continues to have Corral's esophagus but no dysplasia. +Acid reflux. Denies regurgitation. Nexium and Pepcid daily. Kidney transplant 2010. Patient is not on dialysis at this time. Denies pain at this time. PAST MEDICAL HISTORY Diagnosis Date - Anemia in chronic kidney disease(285.21) - Anemia, unspecified 12/18/05 - Corral's esophagus determined by biopsy - Benign neoplasm of colon 2001 by colonoscopy - Chronic kidney disease (CKD) ; never had kidney bx - Diverticulosis of colon (without mention of hemorrhage) - Esophageal reflux - Generalized osteoarthrosis, unspecified site hands, but no frequent nsaids - GERD (gastroesophageal reflux disease) - Hemorrhage of rectum and anus - Hiatal hernia with gastroesophageal reflux - Internal hemorrhoids without mention of complication - Osteoporosis - Pure hypercholesterolemia due to CKD - Unspecified hypothyroidism PAST SURGICAL HISTORY Procedure Laterality Date - ARTERY-VEIN ANASTOMOSIS 02-19-11 left - ; PARATHYROIDECTOMY/EXPL PARATHYRD 04/25 - COLONOS W/REM POLYP SNARE 12/18/05 - COLONOSCOP W/ OR W/O BRSH SPEC 12/26/00 Colonoscopy [facility] - COLONOSCOP W/ OR W/O BRSH SPEC 07/22/06 - COLONOSCOP W/ OR W/O BRSH SPEC 09/10/2017 Colonoscopy - COLONOSCOPY W/BX right and left sided diverticulosis, 10cm mucosal irritation (prolapse) - EGD W/O BRS SPECIMEN W/BX 08/07/2017 - ESOPHAGOSCOPY LESION ABLATE 12/14/2016 - ESOPHAGOSCOPY LESION ABLATE 10/22/2016 - ESOPHAGOSCOPY LESION ABLATE 03/21/2017 - ESOPHAGOSCOPY LESION ABLATE 05/08/2017 - INS TUNNEL CVC W/O PORT >=5 01-30-11 RIGHT IJ - INSERTION CANNULA,ART-NAKUL CP INSUFF 07/13/05 LEFT CELESTINO FISTULA- - KIDNEY SURGERY HX - KIDNEY TRANSPLANT HX 02/2011 - PAST SURGICAL HISTORY OF 07/18 fistula put in left arm - PAST SURGICAL HISTORY OF 07/26 removal of fistula - PAST SURGICAL HISTORY OF 01/2009 failed kidney transplant - PAST SURGICAL HISTORY OF [address] 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 - REMOVAL OF TONSILS,12+ Y/O at age 40 - REPAIR INCISIONAL HERNIA 10/2011 at renal transplant site - TOTAL ABDOM HYSTERECTOMY 1989 with unilateral oophorectomy FAMILY HISTORY Problem Relation Age of Onset - Cancer Father non-Hodgkin's lymphoma - Heart Brother arrythmia - Cancer Son Hodgkins; - None Mother - Cancer Brother cancer of esophagus - None Brother - Cancer Other gastrointestinal - Cancer Paternal Grandfather gastrointestinal - Colon Cancer No Family History SOCIAL HISTORY: Social History Marital status: Spouse name: Years of education: Number of children: 2 Occupational History 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 Before bedtime. at Unknown time Yes esomeprazole (NEXIUM) 40 mg capsule Take 1 capsule by mouth once daily. 11/13/2017 at Unknown time Yes lisinopril 2.5 mg tablet Take 2.5 mg by mouth once daily. 11/13/2017 at Unknown time Yes Magnesium Hydroxide 400 mg (170 mg) chew Take by mouth. 11/12/2017 at Unknown time Yes zolpidem (AMBIEN) 10 mg tab 11/12/2017 at Unknown time Yes mycophenolate Mofetil (CELLCEPT) 500 mg tablet Take 2 tablets by mouth twice daily. 11/13/2017 at Unknown time Yes tacrolimus (PROGRAF) 1 mg capsule 2mg twice daily 11/13/2017 at Unknown time Yes Cholecalciferol, Vitamin D3, 3,000 unit tab Take 1,000 Units by mouth once daily. 11/12/2017 at Unknown time Yes LEVOTHYROXINE 75 MCG TAB Take one(1) tablet daily. 11/13/2017 at Unknown time Yes sucralfate (CARAFATE) 1 gram tablet Take 1 tablet by mouth before meals and at bedtime. Place tablet in 4 oz. of water, drink the dissolved tablet. famotidine (PEPCID) 40 mg tablet Take 40 mg by mouth once daily. 11/10/2017 No medication comments found. ALLERGIES No Known Allergies REVIEW OF SYSTEMS: PAIN ASSESSMENT: Pain Pain Score: 0/10 Pain Assessment (RN/COMMERCIAL MORTGAGE BROKER): Assessment Tool: Verbal (Numeric Rating or Visual Analog Scale) General: Denies fever, chills, and unexpected weight change. Neuro: Denies dizziness and headaches. Respiratory: Denies SOB. Cardiovascular: Denies CP and palpitations. GI: see HPI. : Denies dysuria. Endocrine: No history of diabetes. Hematology: Denies history of bleeding or clotting disorder. Psych: Denies anxiety/depression. Musculoskeletal: Denies joint pain and swelling. Skin: Denies open sores and rashes. Objective PHYSICAL EXAM: VITALS: BP 119/59 Pulse 56 Temp (Src) 97.4 (Oral) Resp 18 SpO2 100% General: NAD. Cooperative. Skin: Skin is warm, no rashes, and no open sores. HEENT: Normocephalic. Cardiovascular: Normal S1 AND S2. RRR Lungs: CTA. No respiratory distress. Abdomen: Soft. +BS Extremities: No edema. Neurological: Alert and oriented to person, place, and time. Pulses: radial pulses +2 Assessment/Plan METS: Climb a flight of stairs or walk up a hill (5.50 METs) ANESTHESIA FINDINGS: Intubation History: No history of difficult intubation Significant Anesthesia Considerations: None (LR ok per Dr. 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 SIGNATURE: Yumiko Serra CNP PATIENT NAME: Julee Lincoln DATE: November 13, 2017 TIME: 9:22 AM PAGER/CONTACT #: OPERATIVE NO Observed: 11/13/2017 Status: COMPLETED Source: [facility] 12:00 AM CLINIC OTHER CAMPUS REPOSITORY HNO ID: [id number] Author: Marissa Apple Service: General Surgery Author Type: Physician Type: Operative Report Filed: 11/14/2017 12:31 PM Note Text: [facility] - Operative Report SURGEON: Marissa Apple MD PATIENT NAME: JULEE LINCOLN CSN: [id number] DATE OF SURGERY: 11/13/2017 DATE OF : 1940 SEX/AGE: F/77 PATIENT TYPE: A HOSP SVC: [facility] LOCATION: [facility] DATE OF SURGERY: 11/13/2017 SURGEON: Marissa Apple MD PREOPERATIVE DIAGNOSES: Corral esophagus, gastroesophageal reflux disease, and hiatal hernia. POSTOPERATIVE DIAGNOSES: Corral esophagus, gastroesophageal reflux disease, and hiatal hernia. PROCEDURES: Esophagogastroduodenoscopy with radiofrequency ablation of the Corral esophagus, 4 cm length. ANESTHESIA: MAC. HISTORY: The patient is a 77-year-old female who has a 4 cm segment of Corral esophagus, and she presents today for ablation of her Corral esophagus. Procedure discussed with her in detail including all risks, benefits, complications inherent to the procedure. These include, but not limited to, bleeding, infection, and perforation and stenosis. She understood and was agreeable to proceed. DESCRIPTION OF PROCEDURE: The patient was brought to the endoscopy suite. Routine monitoring was performed. She was placed in left lateral decubitus position after adequate MAC anesthesia was obtained, the scope was inserted and passed down the esophagus. The Corral esophagus was evaluated. It is approximately a 4 cm length of Croral esophagus from about 30-34 cm. There is a Hill grade 4 hiatal hernia sliding type. With this findings with the length of the Corral's, we elected to proceed with the balloon device. Our guidewire was placed under direct visualization. The scope was then removed. Then, the HALO Barrx device was placed. Once this was placed, EGD went down after it and identified the area of concern. The balloon was positioned appropriately. It was inflated and then the radiofrequency ablation was performed. Everything was removed. The area was scraped for the coagulum and then a same procedure was repeated for a second time. After this was completed, the area appeared appropriately ablated and the endoscopy and Barrx device were all removed in toto. The patient tolerated the procedure well and was transferred to the recovery room in stable condition. Marissa Apple MD Surgery WCP:modl /[id number] HOSP Observed: 10/22/2017 Status: COMPLETED Source: [facility] 12:00 AM CLINIC OTHER CAMPUS REPOSITORY Patient:Julee Lincoln MRN: <[id number]> Height:5' 0(1.524 m) Weight:No patient weight recorded within the last 30 days. Outpatient Medications as of 11/13/17: esomeprazole (NEXIUM) 20 mg capsule sucralfate (CARAFATE) 1 gram tablet esomeprazole (NEXIUM) 40 mg capsule famotidine (PEPCID) 40 mg tablet lisinopril 2.5 mg tablet Magnesium Hydroxide 400 mg (170 mg) chew zolpidem (AMBIEN) 10 mg tab mycophenolate Mofetil (CELLCEPT) 500 mg tablet tacrolimus (PROGRAF) 1 mg capsule Cholecalciferol, Vitamin D3, 3,000 unit tab LEVOTHYROXINE 75 MCG TAB Admission/Clinic Administered Medications as of 11/13/17: lactated ringers infusion lidocaine 10 mg/mL (1 %) 5 mg injection (XYLOCAINE) lactated ringers infusion Problem List: Chronic kidney disease (CKD) [585] End stage renal disease (HCC) [N18.6] Mechanical complication of other vascular device, implant, and graft [T82.598A] Benign neoplasm of colon [D12.6] Anemia, unspecified [D64.9] Diverticulosis of colon (without mention of hemorrhage) [K57.30] Internal hemorrhoids without mention of complication [K64.8] Blood in stool [K92.1] Hemorrhage of rectum and anus [K62.5] Esophageal reflux [K21.9] 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] Family history of GI malignancy [Z80.0] Personal history of colonic polyps [Z86.010] 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 [K22.70] Hernia, hiatal [K44.9] Gastroesophageal reflux disease [K21.9] Allergies: No Known Allergies Date Verified:11/13/17 Lab Values No results within the last 30 days for the following basenames: K,HCT No progress notes entered within the past 30 days ALLERGIES ALLERGIES DATE TYPE / CODE NAME / CODE REACTION SEVERITY SOURCE Drug NO KNOWN [facility] Class/34016 ALLERGIES Other [place] 1003(SNOMED Repository CT) [id number] NO KNOWN [place] [address] ENCOUNTERS ENCOUNTERS ADMIT/DISCHARGE ACCOUNT NUMBER ADMITTING ENCOUNTER LOCATION SOURCE CLASS 09/15/2018 [id number] [facility] ding:LAB Repository 08/20/2018 [id number] MD MAKI Ambulatory [facility] Repository 07/23/2018 [id number] [facility] ding:OPBI Repository 06/14/2018/06/14/[id number] ding:LAB Repository 03/14/2018/03/14/[id number] ding:LAB Repository 03/12/2018/03/12/[id number] Repository 03/12/2018/03/12/20 [id number] Ambulatory [address] [facility] 03/05/2018/03/05/[id number] Repository 03/05/2018/03/05/20 [id number] [place] [address]patient [address]ENDORoom: POOLBed: 12/25/2017/12/26/[id number] Repository 12/25/2017/12/26/19 [id number] [place] [facility] [address] MEDICAL Repository [place]:ENDORoom: POOLBed: 11 12/12/2017 [id number] Ambulatory [facility] ding:LAB.FUT Repository URE 11/13/2017/11/13/19 [id number] KRISTINA, Lana [address] Other [place] Repository 11/13/2017/11/13/19 [id number] [place] [facility] [address] MEDICAL Repository CENTERBuildi ng:ENDORoom: POOLBed: 07 PAYERS PAYERS ENCOUNTER GUARANTOR PAYER SUBSCRIBER SOURCE 09/15/2018 Julee S Primary Julee S Whit [id number] Insurance:MEDICARE MowrerDOB: [facility] PART A BPolicy Number: [id number] Hospital JONATHAN [place] [id number] Repository [address]Atn: (330) Date:2004-12-12 [phone] () 09/15/2018 Secondary Julee S Brun[place] Insurance:ANTHEMPolicy MowrerDOB: Replaced By [facility] Number: [id number] Hospital [id number] Repository Date:[id number] [address]EQ: 09/15/2018 [facility]SELF [facility]: Effective Repository Date:2018-07-16 08/20/2018 JULEE S Primary JULEE S University MOWRERDOB: Insurance:MedicarePoli MOWRERDOB: [facility] [id number] cy Number: [id number] Repository OLNEY [id number] 0 OLMAN DAI Date:0003-70-92Kudu OLMAN CLEMENTS [id number]: Name:Maik Colin [id number]: (RI) (HP) 08/20/2018 Secondary BALDWIN S University Insurance:MedicarePoli MOWRERDOB: Hospitals cy Number: [id number] Repository [id number] 0 ESA Date:0064-04-34Sayy OLMAN CLEMENTS Name:Maik Emerson [id number]: () 08/20/2018 Tertiary JULEE Villegas [employer] Insurance:AnthemPolicy MOWRERDOB: Hospitals Number: [id number] Repository [id number] [address] [place] [address] Date:Plan Name:[facility] [address] [id number]: () 07/23/2018 Julee S Primary Julee Sherman [id number] Insurance:MEDICARE MowrerDOB: Community SEE PART A BPolicy Number: [id number] [id number] Repository [address]Zbq: 330) Date:2018-07-17 [phone] () 07/23/2018 Secondary Julee S Brunson Insurance:ANTHEMPolicy MowrerDOB: Community Number: [id number] Hospital [id number] Repository Date:[id number] [address]TN: 07/23/2018 Tertiary NOT GIVENUNK Whit Insurance:SELF PAY [facility] Number: Effective Repository Date:2018-07-17 06/14/2018 Julee S Primary Julee Sherman [id number] Insurance:MEDICARE MowrerDOB: Community SEE PART A BPolicy Number: [id number] [id number] Repository [address]Lox: 330) Date:2004-12-12 [phone] () 06/14/2018 Secondary Julee S Brunson Insurance:ANTHEMPolicy MowrerDOB: Community Number: [id number] Hospital [id number] Repository Date:6944-52-60[address]AC[place], [place] [address]ZT: 06/14/2018 Tertiary NOT GIVENUNK Whit Insurance:SELF PAY Replaced By [facility] Number: Effective Repository Date:2018-04-11 03/14/2018 Julee S Primary Julee S Whit [id number] Insurance:MEDICARE MowrerDOB: Community SEE PART A BPolicy Number: [id number], [place] [id number] Repository [address]Yrl: 330) Date:2004-12-12 [phone] () 03/14/2018 Secondary Julee S Whit Insurance:ANTHEMPolicy MowrerDOB: Replaced By [facility] Number: [id number] Hospital [id number] Repository Date:[id number] [address]QR: 03/14/2018 Tertiary NOT GIVENUNK [place] Insurance:SELF PAY Replaced By [facility] Number: Effective Repository Date:2017-10-14 03/12/2018 JULEE Primary JULEE MOWRERDOB: [facility] MOWRERDOB: Insurance:MEDICARE A [id number] AND BPolicy Number: Repository [place] [id number] [place] Date: [address]Bxl: () 03/12/2018 Secondary JULEE MOWRERDOB: [facility] Insurance:[facility] [id number] Health System MEDICARE Repository SUPPLEMENTPolicy Number: [id number] Date: 03/05/2018 JULEE Primary JULEE MOWRERDOB: [facility] MOWRERDOB: Insurance:MEDICARE A [id number] Health System AND BPolicy Number: Repository SEE [id number] [place] Date: [address]Tmp: () 03/05/2018 Secondary JULEE MOWRERDOB: [facility] [id number] MEDICARE Repository SUPPLEMENTPolicy Number: [id number] Date: 12/25/2017 JULEE Primary JULEE MOWRERDOB: [facility] MOWRERDOB: Insurance:MEDICARE A [id number] [facility] System AND BPolicy Number: Repository SEE [id number] [place], [place] Date: [address]Icj: () 12/25/2017 Secondary JULEE MOWRERDOB: [facility] Insurance:[facility] [id number] MEDICARE Repository SUPPLEMENTPolicy Number: [id number] Date: 12/12/2017 Julee S Primary Julee S Brunson [id number] Insurance:MEDICARE MowrerDOB: [facility] PART A BPolicy Number: [id number], [place] [id number] Repository [address]Ryt: (573) Date:2004-12-12 [phone] (HP) 12/12/2017 Secondary Julee S Brunson Insurance:ANTHEMPolicy MowrerDOB: Replaced By [facility] Number: [id number] Hospital [id number] Repository Date:4022-64-74QV[address] [address]MM: 12/12/2017 Tertiary NOT GIVENUNK Brunson Insurance:SELF PAY [facility] Number: Effective Repository Date:2017-07-29 11/13/2017 JULEE Primary JULEE MOWRERDOB: [facility] MOWRERDOB: Insurance:MEDICARE A [id number] City [facility] AND BPolicy Number: [facility] [id number] [place] Date: [address]Pzv: () 11/13/2017 Secondary JULEE MOWRERDOB: [facility] Insurance:[facility] [id number] City Hospital MEDICARE Repository SUPPLEMENTPolicy Number: [id number] Date:
== END 2018-09-15 09:52 | disposition home or self-care (01) ==
LOC: LAB 08:52
PROVIDERS: Family Provider Family Medicine; PCP Family Medicine
DX: Z94.0 Kidney transplant status (principal); D89.9 Disorder involving the immune mechanism, unspecified
CPT/HCPCS: 36415; 80069; 80197; 82570; 84156; 85027

== ENCOUNTER 2018-12-12 09:11 | Outpatient (RCR) | payer MEDICARE, BC, SELFPAY ==
[2018-12-12 10:27] LABS: Hematocrit 36.4 % (37-47); Hemoglobin 11.2 g/dl (12.0-15.0); Mean Corp Hgb Conc 30.8 g/gl (32-36); Mean Corpuscular Hgb 28.9 pg (27.0-32.0); Mean Corpuscular Volume 93.8 fL (81-99); Mean Platelet Vol. 11.2 fl (6.2-12.0); Platelet Count 218 K/mm3 (150-450); RBC Distribution Width CV 14.8 % (11.6-14.6); RBC Distribution Width SD 47.9 fl (35.1-43.9); Red Blood Count 3.88 M/mm3 (4.2-5.4); White Blood Count 5.3 K/mm3 (4.4-11.0)
[2018-12-12 10:29] LABS: Scan Indicated on CBC? Y/N NO
[2018-12-12 10:58] LABS: Albumin, Serum 3.5 g/dL (3.2-5.0); BUN 23 mg/dL (7-18); BUN/Creat Ratio 15.8 RATIO (10-20); Calcium,Total 8.3 mg/dL (8.5-10.1); Chloride 112 mmol/L (98-107); Creatinine, Serum 1.46 mg/dL (0.55-1.02); EST Glomerular Filtration Rate 37 mL/min (>60); Est Glom Filt Rate - Afr Amer 45 mL/min (>60); Glucose 90 mg/dL (74-106); Phosphorus 2.8 mg/dL (2.5-4.9); Potassium 5.1 mmol/L (3.5-5.1); Sodium Level 142 mmol/L (136-145)
[2018-12-17 12:19] LABS: Tacrolimus (FK506) 7.8 ng/mL (2.0-20.0)
== END 2018-12-12 10:11 | disposition home or self-care (01) ==
LOC: LAB 09:11
PROVIDERS: Family Provider Family Medicine; PCP Family Medicine
DX: Z94.0 Kidney transplant status (principal)
CPT/HCPCS: 36415; 80069; 80197; 85027

== ENCOUNTER 2019-01-17 10:04 | Emergency (ER) | payer MEDICARE, BC, SELFPAY ==
[2019-01-17 10:06] VITALS: BP 127/77; PULSE 92; RESP 18; TEMP 36.3; O2SAT 97; BMI 20.7
--- NOTE | 2019-01-17 10:33 | CT_ITS ---
STUDY: CT ABDOMEN AND PELVIS WITHOUT CONTRAST REASON FOR EXAM: Female, 78 years old. Mid abdominal pain with nausea, history of prior hernia surgery RADIATION DOSAGE (If Supplied By Facility): CTDIvol = ( 6.14 ) mGy, DLP = ( 275.96 ) mGycm TECHNIQUE: Transaxial images were obtained from the dome of the diaphragm to the symphysis pubis without oral contrast, and without intravenous contrast. Sagittal and coronal images were reconstructed. Individualized dose optimization techniques were used for this CT. COMPARISON: Prior comparison studies are not available for review at this time. FINDINGS: There are chronic interstitial fibrotic changes of the lung bases. There are mitral valvular calcifications. Normal liver. Normal gallbladder and extrahepatic biliary system. Normal spleen. Normal pancreas. Normal bilateral adrenal glands. There is severe cortical atrophy of the right kidney, consistent with chronic medical renal disease. There is severe cortical atrophy of the left kidney, consistent with chronic medical renal disease. Bilateral renal cysts are identified. Some of the cysts demonstrate circumferential calcification. Right lower quadrant renal transplant identified. Bilateral renal calculi are identified in the [place] kidneys but no hydronephrosis of the [place] kidneys or right lower quadrant transplant. There is a small hiatal hernia. The stomach is distended with fluid. There are dilated loops of the small intestine with a non-distended colon consistent with a small bowel obstruction. Small bowel measures up to 4.3 cm in diameter. There is a transition point in the right lower quadrant (axial image 71). No pneumatosis, portal venous gas or pneumoperitoneum. There are multiple colonic diverticula consistent with diverticulosis. The appendix is visualized and appears normal. There is diffuse atherosclerotic calcification of the abdominal aorta, without a demonstrated aneurysm. Normal inferior vena cava. Normal retroperitoneum. Normal urinary bladder. Uterus appears to be surgically absent. There is a small (1.5 cm) left adnexal cyst. There are operative changes of the anterior abdominal wall but no demonstrated abdominal wall hernia. Grade 2 spondylolisthesis of L5-S1 due to bilateral L5 spondylolysis. Severe degenerative changes of the lumbosacral spine. CT/Abdomen/Pelvis without Cont IMPRESSION: 1. Small bowel obstruction with transition point in the right lower quadrant. No pneumatosis, portal venous gas or pneumoperitoneum. 2. Right lower quadrant renal transplant. Severe atrophy of the [place] kidneys. 3. Bilateral renal cysts some of which demonstrate peripheral calcification. 1.5 cm left adnexal cyst. Hysterectomy. 4. Grade 2 spondylolisthesis of L5-S1 with severe degenerative changes. Electronically Signed: Zane Kay MD at 11:46 EDT , Service support ,
--- NOTE | 2019-01-17 10:33 | EKG12_ITS ---
Test Reason : ABD PAIN Blood Pressure : / mmHG Vent. Rate : 077 BPM Atrial Rate : 077 BPM P-R Int : 100 ms QRS Dur : 078 ms QT Int : 388 ms P-R-T Axes : -02 072 080 degrees QTc Int : 439 ms Sinus rhythm with short [place] Otherwise normal ECG Confirmed by ALEXIS MCKEON, ANIYA ([id number]), food editor PALLAVI ROCA ([id number]) on 01/19/2019 11:04:55 AM Referred By: GRECIA Confirmed By:ANIYA ESPINOZA MD
--- NOTE | 2019-01-17 10:41 | ED.DCSUM_ITS ---
- ER Visit Summary Date of Service: 01/17/19 Chief Complaint: [] Diffuse abdominal pain history of renal transplant 2010 History of Present Illness: The patient is a 78 F [] yesterday at 6 PM she began having diffuse abdominal pain is nonspecific it seems to come and go it similar to her hiatal hernia pain that she has had in the past, she indicates she ate at a [employer] restaurant at noon for lunch and then began having the pain at 6 she was not obviously exposed to any contaminated food she was on a [facility] where there are multiple sick people, she did not have direct contact with them, she has had no vomiting normal bowel habits normal urinary habits she is able to eat she is able take her medications but has a sense of discomfort, she has no history of hepatobiliary dysfunction no history of bowel obstruction, she is status post complete hysterectomy, her kidneys and her pelvi s, she indicates her kidneys not swollen or tender and again her urinary outputs have been normal, her creatinine runs about 1.5 Physical Examination: [] Vital signs are within normal range General, no distress resting comfortably HEENT is generally unremarkable The neck is supple no adenopathy Cardiovascular, regular rate and rhythm Lungs, clear bilateral Abdomen, soft nontender, she indicates that her kidneys really in her right pelvis this area is palpable but there is no fullness or warmth or signs of swelling or pain her abdomen itself is actually nontender but she has a diffuse complaint of pain she takes her hand and draws in a grand ronde tribes across her entire abdomen Extremities, no clubbing cyanosis or edema Neurologic, awake alert answering questions appropriately moving all 4 extremities Test Results: [] Please note the patient declined NG tube Emergency Department Course and Treatment: [] Given her history and given all the above conference of screening labs CT flank noncontrast UA The patient's screening labs generally unremarkable creatinine 1.6, the patient CT abdomen shows small bowel obstruction with transition point it appears to be in the right lower quadrant please see all those reports, discussed all the above the patient discussed the need for further management given that she has had a renal transplant the patient asked to be transferred to spoke with you which transfer center spoke with Dr. Joseph who accepted her in transfer to for further management patient is agreeable and understands Treatment Plan: [] Disposition: [] Transfer hospital for surgery eval to the ED Impression: [] Small bowel obstruction, history of renal transplantation 2010 This note was generated with [employer] dictation software. It may contain incorrect words, spelling, and punctuation that were not noted in review of the chart prior to signing ED Disposition - Plan for ED Patient: Referrals: Ha See MD [Primary Care Provider] -
[2019-01-17] MEDS: Ondansetron 4 MG/2 ML Vial IV (10:59)
[2019-01-17] MEDS: 0.9% Normal Saline 1,000 ML 125 ML IV (10:59)
[2019-01-17 11:08] LABS: Absolute Lymphocyte Count 0.44 X10^3/ul (0.83-4.51); Absolute Neutrophil Count 7.6 X10^3/uL (2.0-7.7); Basophil# 0.01 X10^3/uL; Basophil% 0.1 % (0-1); Hematocrit 39.2 % (37-47); Hemoglobin 12.9 g/dl (12.0-15.0); Lymphocyte # 0.44 X10^3/ul (4.0); Mean Corp Hgb Conc 32.9 g/gl (32-36); Mean Corpuscular Hgb 29.3 pg (27.0-32.0); Mean Corpuscular Volume 88.9 fL (81-99); Mean Platelet Vol. 11.1 fl (6.2-12.0); Monocyte# 0.71 X10^3/uL; Monocyte% 8.1 % (0-10); Neutrophil # 7.63 X10^3/uL (2.7-7.7); Neutrophil % 86.7 % (47-70); POSITIVE COUNT NO; POSITIVE DIFFERENTIAL NO; POSITIVE MORPHOLOGY NO; Platelet Count 249 K/mm3 (150-450); RBC Distribution Width SD 48.3 fl (35.1-43.9); Red Blood Count 4.41 M/mm3 (4.2-5.4); White Blood Count 8.8 K/mm3 (4.4-11.0)
[2019-01-17 11:39] LABS: AST(SGOT) 16 U/L (15-37); Alanine Aminotransfer ALT/SGPT 11 U/L (13-56); Alkaline Phosphatase 58 U/L (45-117); Anion Gap 6 (5-15); BUN 35 mg/dL (7-18); BUN/Creat Ratio 20.7 RATIO (10-20); Bilirubin, Direct 0.13 mg/dL (0.00-0.30); Calcium,Total 9.6 mg/dL (8.5-10.1); Chloride 103 mmol/L (98-107); Creatinine, Serum 1.69 mg/dL (0.55-1.02); EST Glomerular Filtration Rate 31 mL/min (>60); Est Glom Filt Rate - Afr Amer 38 mL/min (>60); Estimated Creatinine Clearance 19.71 ml/min; Globulin 2.8 g/dL (2.2-4.2); Glucose 134 mg/dL (74-106); Lipase 90 U/L (73-393); Potassium 5.2 mmol/L (3.5-5.1); Protein, Total 6.8 g/dL (6.4-8.2); Sodium Level 135 mmol/L (136-145)
[2019-01-17] MEDS: Acetaminophen 500 MG Tablet 1000 MG PO (11:47)
[2019-01-17 12:05] VITALS: BP 130/81; PULSE 84; RESP 18; O2SAT 96
[2019-01-17 12:34] LABS: Bacteria 0 SEEN /hpf (None Seen); Mucous, Urine 0 SEEN /hpf (<or=2+)
[2019-01-17 12:39] LABS: Color, Urine Yellow (Yellow); Glucose, Dipstick Normal (Normal); Ketone-Dipstick 15 mg/dl (Negative); Leukocyte Esterase-Dipstick 100 /ul (Negative); Nitrite-Dipstick Negative (Negative); Occult Blood-Urine 50 /ul (Negative); Protein-Dipstick 500 mg/dl (Negative); Specific Gravity, Urine 1.015 (1.002-1.030); Urine Clarity Clear (Clear); Urine Urobilinogen Normal (Normal)
[2019-01-17] MEDS: Morphine 4 MG/ML Syringe IV (12:39)
[2019-01-17 12:46] LABS: Urine Bilirubin Dipstick 1 mg/dL (Negative)
[2019-01-17 12:49] LABS: Red Blood Cells-Urine 0-5 SEEN /hpf (0-5); Squamous Epithelial Cells - UA 0-5 SEEN /hpf (5-10); White Blood Cells 10-25 SEEN /hpf (0-5)
--- NOTE | 2019-01-17 12:54 | ED.RN ---
Report given to Yenifer in Er
== END 2019-01-17 14:04 | disposition short-term general hospital (02) ==
LOC: ED 11:34
PROVIDERS: Emergency Provider Emergency Medicine; Family Provider Family Medicine; PCP Family Medicine
DX: K56.609 Unspecified intestinal obstruction, unspecified as to partial versus complete obstruction (principal); Z79.899 Other long term (current) drug therapy; Z94.0 Kidney transplant status; Z90.710 Acquired absence of both cervix and uterus
CPT/HCPCS: 74176; 80048; 80076; 81001; 83690; 84484; 85025; 93005; 96361; 96374; 96375; 99283; J7040; J2405

== ENCOUNTER 2019-03-14 08:55 | Outpatient (RCR) | payer MEDICARE, BC, SELFPAY ==
[2019-03-14 09:34] LABS: Hematocrit 37.5 % (37-47); Hemoglobin 12.2 g/dl (12.0-15.0); Mean Corp Hgb Conc 32.5 g/gl (32-36); Mean Corpuscular Hgb 29.2 pg (27.0-32.0); Mean Corpuscular Volume 89.7 fL (81-99); Mean Platelet Vol. 11.1 fl (6.2-12.0); Platelet Count 210 K/mm3 (150-450); RBC Distribution Width CV 14.6 % (11.6-14.6); RBC Distribution Width SD 47.5 fl (35.1-43.9); Red Blood Count 4.18 M/mm3 (4.2-5.4); Scan Indicated on CBC? Y/N NO; White Blood Count 4.4 K/mm3 (4.4-11.0)
[2019-03-14 09:57] LABS: Albumin, Serum 3.5 g/dL (3.2-5.0); BUN 32 mg/dL (7-18); BUN/Creat Ratio 22.2 RATIO (10-20); Calcium,Total 8.9 mg/dL (8.5-10.1); Chloride 112 mmol/L (98-107); Creatinine, Serum 1.44 mg/dL (0.55-1.02); EST Glomerular Filtration Rate 37 mL/min (>60); Est Glom Filt Rate - Afr Amer 45 mL/min (>60); Glucose 95 mg/dL (74-106); Phosphorus 3.9 mg/dL (2.5-4.9); Potassium 4.7 mmol/L (3.5-5.1); Sodium Level 142 mmol/L (136-145)
[2019-03-14 10:18] LABS: Prograf-FK506 TO CCF/UNIV MAILED SPECIMEN
== END 2019-04-12 12:00 | disposition home or self-care (01) ==
LOC: LAB 08:55
PROVIDERS: Family Provider Family Medicine; PCP Family Medicine
DX: Z94.0 Kidney transplant status (principal)
CPT/HCPCS: 36415; 80069; 85027

== ENCOUNTER 2019-06-16 07:01 | Outpatient (RCR) | payer MEDICARE, BC, SELFPAY ==
[2019-06-16 07:36] LABS: Absolute Lymphocyte Count 0.97 X10^3/uL (0.83-4.51); Absolute Neutrophil Count 1.3 X10^3/uL (2.0-7.7); Basophil# 0.02 X10^3/uL; Basophil% 0.6 % (0-1); Eosinophil# 0.26 X10^3/uL; Eosinophils% 8.4 % (0-5); Hematocrit 35.5 % (37-47); Hemoglobin 11.3 g/dL (12.0-15.0); Lymphocyte # 0.97 X10^3/ul (4.0); Lymphocyte % 31.2 % (19-41); Mean Corp Hgb Conc 31.8 g/dL (32-36); Mean Corpuscular Hgb 29.6 pg (27.0-32.0); Mean Corpuscular Volume 92.9 fL (81-99); Mean Platelet Vol. 11.1 fl (6.2-12.0); Monocyte# 0.54 X10^3/uL; Monocyte% 17.4 % (0-10); NRBC Flagged by Analyzer 0 % (0-5); Neutrophil # 1.31 X10^3/uL (2.7-7.7); Neutrophil % 42.1 % (47-70); Platelet Count 168 K/mm3 (150-450); RBC Distribution Width CV 15.3 % (11.6-14.6); RBC Distribution Width SD 52.2 fl (35.1-43.9); Red Blood Count 3.82 M/mm3 (4.2-5.4); White Blood Count 3.1 K/mm3 (4.4-11.0)
[2019-06-16 08:14] LABS: Albumin, Serum 3.3 g/dL (3.2-5.0); BUN 26 mg/dL (7-18); BUN/Creat Ratio 18.7 RATIO (10-20); Calcium,Total 8.8 mg/dL (8.5-10.1); Chloride 113 mmol/L (98-107); Creatinine, Serum 1.39 mg/dL (0.55-1.02); EST Glomerular Filtration Rate 39 mL/min (>60); Est Glom Filt Rate - Afr Amer 47 mL/min (>60); Glucose 86 mg/dL (74-106); Magnesium 2.3 mg/dL (1.6-2.6); Potassium 4.8 mmol/L (3.5-5.1); Sodium Level 142 mmol/L (136-145); T4 Free Direct 1.45 ng/dL (0.76-1.46)
[2019-06-16 09:07] LABS: PTHIN 144.8 pg/mL (18.4-80.1)
[2019-06-16 09:09] LABS: Vitamin D,25 Hydroxy 51.1 ng/mL (29.95-100.01)
[2019-06-16 14:19] LABS: ALB/GLOB Ratio 1.1 RATIO (0.9-2.4)
[2019-06-16 15:24] LABS: AST(SGOT) 11 U/L (15-37); Alanine Aminotransfer ALT/SGPT 11 U/L (13-56); Bilirubin, Direct 0.09 mg/dL (0.00-0.30)
[2019-06-16 15:26] LABS: Protein, Total 6.3 g/dL (6.4-8.2)
[2019-06-16 15:27] LABS: Alkaline Phosphatase 54 U/L (45-117)
[2019-06-18 13:30] LABS: Tacrolimus (FK506) 5.8 ng/mL (2.0-20.0)
== END 2019-06-16 11:00 | disposition home or self-care (01) ==
LOC: LAB 07:01
PROVIDERS: Family Provider Family Medicine; PCP Family Medicine
DX: Z94.0 Kidney transplant status (principal); E03.9 Hypothyroidism, unspecified; E55.9 Vitamin D deficiency, unspecified; Z13.220 Encounter for screening for lipoid disorders
CPT/HCPCS: 36415; 80069; 80197; 82247; 82248; 82306; 83735; 83970; 84075; 84156; 84439; 84443; 84450; 84460; 85025

== ENCOUNTER → 2019-07-07 11:20 | Outpatient (CLI) | payer MEDICARE, BC, SELFPAY ==
[2019-07-07 12:26] LABS: Absolute Lymphocyte Count 0.89 X10^3/uL (0.83-4.51); Absolute Neutrophil Count 6.5 X10^3/uL (2.0-7.7); Basophil# 0.03 X10^3/uL; Basophil% 0.3 % (0-1); Eosinophil# 0.17 X10^3/uL; Hematocrit 36.2 % (37-47); Hemoglobin 11.6 g/dL (12.0-15.0); Lymphocyte # 0.89 X10^3/ul (4.0); Lymphocyte % 10.3 % (19-41); Mean Corpuscular Hgb 29.7 pg (27.0-32.0); Mean Corpuscular Volume 92.8 fL (81-99); Mean Platelet Vol. 11.3 fl (6.2-12.0); Monocyte# 1.05 X10^3/uL; Monocyte% 12.1 % (0-10); NRBC Flagged by Analyzer 0 % (0-5); Neutrophil # 6.51 X10^3/uL (2.7-7.7); Platelet Count 218 K/mm3 (150-450); RBC Distribution Width CV 14.6 % (11.6-14.6); RBC Distribution Width SD 49.5 fl (35.1-43.9); White Blood Count 8.7 K/mm3 (4.4-11.0)
[2019-07-07 12:55] LABS: ALB/GLOB Ratio 1.1 RATIO (0.9-2.4); AST(SGOT) 11 U/L (15-37); Alanine Aminotransfer ALT/SGPT 10 U/L (13-56); Albumin, Serum 3.5 g/dL (3.2-5.0); Alkaline Phosphatase 67 U/L (45-117); Anion Gap 9 (5-15); BUN 29 mg/dL (7-18); Chloride 109 mmol/L (98-107); Creatinine, Serum 1.45 mg/dL (0.55-1.02); EST Glomerular Filtration Rate 37 mL/min (>60); Est Glom Filt Rate - Afr Amer 45 mL/min (>60); Globulin 3.1 g/dL (2.2-4.2); Glucose 92 mg/dL (74-106); Potassium 4.8 mmol/L (3.5-5.1); Protein, Total 6.6 g/dL (6.4-8.2); Sodium Level 140 mmol/L (136-145)
== END ==
PROVIDERS: Family Provider Family Medicine; PCP Family Medicine; Referring Provider Family Medicine; Visit Provider Family Medicine
DX: R10.31 Right lower quadrant pain (principal); R14.0 Abdominal distension (gaseous)
CPT/HCPCS: 36415; 80053; 85025; 86140

== ENCOUNTER 2019-09-14 08:52 | Outpatient (RCR) | payer MEDICARE, BC, SELFPAY ==
[2019-09-14 10:39] LABS: Color, Urine Yellow (Yellow); Glucose, Dipstick Normal (Normal); Hematocrit 37.1 % (37-47); Hemoglobin 11.7 g/dL (12.0-15.0); Ketone-Dipstick Negative (Negative); Leukocyte Esterase-Dipstick 25 /ul (Negative); Mean Corp Hgb Conc 31.5 g/dL (32-36); Mean Corpuscular Hgb 29.5 pg (27.0-32.0); Mean Corpuscular Volume 93.5 fL (81-99); Mean Platelet Vol. 11.1 fl (6.2-12.0); Nitrite-Dipstick Negative (Negative); Occult Blood-Urine 250 /ul (Negative); Platelet Count 223 K/mm3 (150-450); Protein-Dipstick 500 mg/dl (Negative); RBC Distribution Width CV 14.7 % (11.6-14.6); RBC Distribution Width SD 50.6 fl (35.1-43.9); Red Blood Count 3.97 M/mm3 (4.2-5.4); Specific Gravity, Urine 1.015 (1.002-1.030); Urine Bilirubin Dipstick Negative (Negative); Urine Clarity Sl. Cloudy (Clear); Urine Urobilinogen Normal (Normal); White Blood Count 4.9 K/mm3 (4.4-11.0)
[2019-09-14 10:55] LABS: Protein:Creat Ratio 3065 mg/g CRE (0-200)
[2019-09-14 11:08] LABS: Albumin, Serum 3.5 g/dL (3.2-5.0); BUN 25 mg/dL (7-18); BUN/Creat Ratio 15.7 RATIO (10-20); Chloride 109 mmol/L (98-107); Creatinine, Serum 1.59 mg/dL (0.55-1.02); EST Glomerular Filtration Rate 33 mL/min (>60); Est Glom Filt Rate - Afr Amer 40 mL/min (>60); Glucose 85 mg/dL (74-106); Magnesium 2.2 mg/dL (1.6-2.6); Phosphorus 3.3 mg/dL (2.5-4.9); Potassium 4.7 mmol/L (3.5-5.1); Sodium Level 139 mmol/L (136-145)
[2019-09-16 20:36] LABS: Tacrolimus (FK506) 5.6 ng/mL (2.0-20.0)
== END 2019-09-14 18:00 | disposition home or self-care (01) ==
LOC: LAB 08:52
PROVIDERS: Family Provider Family Medicine; PCP Family Medicine
DX: Z94.0 Kidney transplant status (principal)
CPT/HCPCS: 36415; 80069; 80197; 81002; 82570; 83735; 84156; 85027

== ENCOUNTER 2019-12-14 08:48 | Outpatient (RCR) | payer MEDICARE, BC, SELFPAY ==
[2019-12-14 09:28] LABS: Hematocrit 40.1 % (37-47); Hemoglobin 12.8 g/dL (12.0-15.0); Mean Corp Hgb Conc 31.9 g/dL (32-36); Mean Corpuscular Hgb 29.2 pg (27.0-32.0); Mean Corpuscular Volume 91.6 fL (81-99); Mean Platelet Vol. 11.1 fl (6.2-12.0); Platelet Count 226 K/mm3 (150-450); RBC Distribution Width CV 14.7 % (11.6-14.6); RBC Distribution Width SD 49.2 fl (35.1-43.9); Red Blood Count 4.38 M/mm3 (4.2-5.4); White Blood Count 5.7 K/mm3 (4.4-11.0)
[2019-12-14 10:02] LABS: Albumin, Serum 3.5 g/dL (3.2-5.0); BUN 28 mg/dL (7-18); BUN/Creat Ratio 19.9 RATIO (10-20); Calcium,Total 9.2 mg/dL (8.5-10.1); Chloride 111 mmol/L (98-107); Creatinine, Serum 1.41 mg/dL (0.55-1.02); EST Glomerular Filtration Rate 38 mL/min (>60); Est Glom Filt Rate - Afr Amer 46 mL/min (>60); Glucose 98 mg/dL (74-106); Magnesium 2.1 mg/dL (1.6-2.6); Phosphorus 3.6 mg/dL (2.5-4.9); Potassium 5.1 mmol/L (3.5-5.1); Sodium Level 140 mmol/L (136-145)
[2019-12-15 20:50] LABS: Tacrolimus (FK506) 6.1 ng/mL (2.0-20.0)
== END 2019-12-14 18:00 | disposition home or self-care (01) ==
LOC: LAB 08:48
PROVIDERS: Family Provider Family Medicine; PCP Family Medicine
DX: Z94.0 Kidney transplant status (principal)
CPT/HCPCS: 36415; 80069; 80197; 83735; 85027

== ENCOUNTER → 2020-01-25 11:40 | Outpatient (CLI) | payer MEDICARE, BC, SELFPAY ==
[2020-01-25 11:47] LABS: Mucous, Urine 0 SEEN /hpf (<or=2+); White Blood Cells 0 SEEN /hpf (0-5)
[2020-01-25 14:57] LABS: Color, Urine Yellow (Yellow); Glucose, Dipstick Normal (Normal); Ketone-Dipstick Negative (Negative); Leukocyte Esterase-Dipstick Negative /ul (Negative); Nitrite-Dipstick Negative (Negative); Occult Blood-Urine 150 /ul (Negative); Protein-Dipstick 100 mg/dl (Negative); Urine Bilirubin Dipstick Negative (Negative); Urine Clarity Sl. Cloudy (Clear); Urine Urobilinogen Normal (Normal)
[2020-01-25 15:11] LABS: ALB/GLOB Ratio 1.1 RATIO (0.9-2.4); AST(SGOT) 19 U/L (15-37); Alanine Aminotransfer ALT/SGPT 13 U/L (13-56); Albumin, Serum 3.3 g/dL (3.2-5.0); Alkaline Phosphatase 48 U/L (45-117); Anion Gap 4 (5-15); BUN 23 mg/dL (7-18); BUN/Creat Ratio 15.6 RATIO (10-20); CRP < 2.90 mg/L (0.0-3.0); Calcium,Total 9.1 mg/dL (8.5-10.1); Chloride 109 mmol/L (98-107); Creatinine, Serum 1.47 mg/dL (0.55-1.02); EST Glomerular Filtration Rate 36 mL/min (>60); Est Glom Filt Rate - Afr Amer 44 mL/min (>60); Glucose 96 mg/dL (74-106); Potassium 5.2 mmol/L (3.5-5.1); Protein, Total 6.3 g/dL (6.4-8.2); Sodium Level 136 mmol/L (136-145)
[2020-01-25 15:24] LABS: Erythrocyte Sedimentation Rate 21 mm/hr (0-30)
[2020-01-25 15:26] LABS: Absolute Lymphocyte Count 0.94 X10^3/uL (0.83-4.51); Basophil# 0.05 X10^3/uL; Basophil% 0.7 % (0-1); Eosinophils% 1.5 % (0-5); Hematocrit 37.9 % (37-47); Lymphocyte # 0.94 X10^3/ul (4.0); Lymphocyte % 13.6 % (19-41); Mean Corp Hgb Conc 31.7 g/dL (32-36); Mean Corpuscular Hgb 28.3 pg (27.0-32.0); Mean Corpuscular Volume 89.4 fL (81-99); Mean Platelet Vol. 10.7 fl (6.2-12.0); Monocyte% 11.6 % (0-10); NRBC Flagged by Analyzer 0 % (0-5); Neutrophil # 4.95 X10^3/uL (2.7-7.7); Neutrophil % 71.9 % (47-70); Platelet Count 346 K/mm3 (150-450); RBC Distribution Width CV 14.9 % (11.6-14.6); Red Blood Count 4.24 M/mm3 (4.2-5.4); White Blood Count 6.9 K/mm3 (4.4-11.0)
[2020-01-25 15:38] LABS: Bacteria 1+ /hpf (None Seen); Red Blood Cells-Urine 10-25 SEEN /hpf (0-5); Squamous Epithelial Cells - UA 0-5 SEEN /hpf (5-10)
== END ==
PROVIDERS: PCP Family Medicine; Referring Provider Family Medicine; Visit Provider Family Medicine
DX: R10.31 Right lower quadrant pain (principal)
CPT/HCPCS: 36415; 80053; 81001; 85025; 85652; 86140; 87086; 87088

== ENCOUNTER → 2020-01-28 07:50 | Outpatient (CLI) | payer MEDICARE, BC, SELFPAY ==
--- NOTE | 2020-01-28 07:53 | CT_ITS ---
STUDY: CT ABDOMEN AND PELVIS WITHOUT CONTRAST REASON FOR EXAM: Female, 79 years old. RLQ PAIN X 2 WKS, MUCOUS STOOL, HX KIDNEY TRANSPLANT X 2, HYSTERECTOMY, HIATAL HERNIA RADIATION DOSAGE (If Supplied By Facility): CTDIvol = ( 6.17 ) mGy, DLP = ( 242.35 ) mGycm TECHNIQUE: Transaxial images were obtained from the dome of the diaphragm to the symphysis pubis without oral contrast, and without intravenous contrast. Sagittal and coronal images were reconstructed. Individualized dose optimization techniques were used for this CT. COMPARISON: 01/17/2019 FINDINGS: There are chronic interstitial fibrotic changes of the lung bases. There is small loculated pleural effusion above the right hemidiaphragm appears stable since the previous study. There are mitral valvular calcifications. Normal liver. Normal gallbladder and extrahepatic biliary system. Normal spleen. Normal pancreas. Normal bilateral adrenal glands. There is severe cortical atrophy of the right kidney, consistent with chronic medical renal disease. There is severe cortical atrophy of the left kidney, consistent with chronic medical renal disease. Bilateral renal cysts are identified. Some of the cysts demonstrate circumferential calcification. Right lower quadrant renal transplant identified. Bilateral renal calculi are identified in the shinnecock kidneys but no hydronephrosis of the shinnecock kidneys or right lower quadrant transplant. Normal small intestine. There are multiple colonic diverticula consistent with diverticulosis. The appendix is visualized and appears normal. There is diffuse atherosclerotic calcification of the abdominal aorta, without a demonstrated aneurysm. Normal inferior vena cava. Normal retroperitoneum. Normal urinary bladder. Uterus appears to be surgically absent. There is a small (1.5 cm) left adnexal cyst. There are operative changes of the anterior abdominal wall but no demonstrated abdominal wall hernia. Grade 2 spondylolisthesis of L5-S1 due to bilateral L5 spondylolysis. Severe degenerative changes of the lumbosacral spine. CT/Abdomen/Pelvis without Cont IMPRESSION: 1. Colon diverticulosis 2. Right lower quadrant renal transplant. Severe atrophy of the shinnecock kidneys. 3. Bilateral renal cysts some of which demonstrate peripheral calcification without significant change since the previous study. 1.5 cm left adnexal cyst. Hysterectomy. 4. Grade 2 spondylolisthesis of L5-S1 with severe degenerative changes. Electronically Signed: Skylar Brady, at 11:22 EDT Tel , Service support ,
== END ==
PROVIDERS: PCP Family Medicine; Referring Provider Family Medicine; Visit Provider Family Medicine
DX: R10.31 Right lower quadrant pain (principal)
CPT/HCPCS: 74176

== ENCOUNTER 2020-03-14 07:24 | Outpatient (RCR) | payer MEDICARE, BC, SELFPAY ==
[2020-03-14 08:32] LABS: Hematocrit 38.4 % (37-47); Hemoglobin 12.1 g/dL (12.0-15.0); Mean Corp Hgb Conc 31.5 g/dL (32-36); Mean Corpuscular Hgb 29.2 pg (27.0-32.0); Mean Corpuscular Volume 92.5 fL (81-99); Mean Platelet Vol. 11.5 fl (6.2-12.0); Platelet Count 237 K/mm3 (150-450); RBC Distribution Width CV 15.5 % (11.6-14.6); RBC Distribution Width SD 52.7 fl (35.1-43.9); Red Blood Count 4.15 M/mm3 (4.2-5.4); White Blood Count 6.4 K/mm3 (4.4-11.0)
[2020-03-14 09:07] LABS: Albumin, Serum 3.5 g/dL (3.2-5.0); BUN 30 mg/dL (7-18); BUN/Creat Ratio 19.1 RATIO (10-20); Chloride 109 mmol/L (98-107); Creatinine, Serum 1.57 mg/dL (0.55-1.02); EST Glomerular Filtration Rate 34 mL/min (>60); Est Glom Filt Rate - Afr Amer 41 mL/min (>60); Glucose 89 mg/dL (74-106); Magnesium 2.6 mg/dL (1.6-2.6); Phosphorus 3.6 mg/dL (2.5-4.9); Sodium Level 140 mmol/L (136-145)
[2020-03-16 14:02] LABS: Tacrolimus (FK506) 6.9 ng/mL (2.0-20.0)
== END 2020-03-14 18:00 | disposition home or self-care (01) ==
LOC: LAB 07:24
PROVIDERS: Family Provider Family Medicine; PCP Family Medicine
DX: Z94.0 Kidney transplant status (principal)
CPT/HCPCS: 36415; 80069; 80197; 83735; 85027

== ENCOUNTER → 2020-04-13 11:23 | Outpatient (CLI) | payer MEDICARE, BC, SELFPAY ==
--- NOTE | 2020-04-13 11:28 | BI_ITS ---
MAMMOGRAPHY - BILATERAL SCREENING REASON FOR EXAM: Female, 79 years old. Routine annual screening examination. PERTINENT HISTORY: Non-contributory. TECHNIQUE: Digital bilateral breast cecilia (3D mammographic acquisition) in the CC and MLO projections. 2-D mediolateral oblique (MLO) and craniocaudad (CC) views of both breasts were obtained. CAD: Full Field Digital Mammography with Computer Added Detection was performed. COMPARISON: Comparison is made with prior study dated July 23, 2018 and May 30. FINDINGS: Breast Composition: The breasts are heterogeneously dense, which may obscure small masses. There are no dominant masses or suspicious calcifications. No other significant abnormalities are identified. There has been no significant change since the prior study. BI/SCREEN MAMM (CAD) W/CECILIA BILAT IMPRESSION: Stable bilateral screening mammogram. Yearly follow-up mammogram recommended. (A) ASSESSMENT CATEGORY: BIRADS Category 1: Negative. A letter regarding these results will be sent to the patient by the facility within 30 days. Approximately 10% of breast cancers are not detected by mammography. A normal mammogram should not delay biopsy of a clinically suspicious abnormality. [id number] Electronically Signed: Ministerio Kidd, at 12:26 EDT , Service support ,
--- NOTE | 2020-04-13 11:30 | BD_ITS ---
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 COMPARISON: Comparison is made with prior examination dated December 15, 2015. FINDINGS: Lumbar Spine (L1-L4): g/cm2 (0.886) / T-score (-2.4) / Z-score (-0.5) Findings are suggestive of osteopenia with a high fracture risk. Increased thoracic kyphosis. Left Femur Total: g/cm2 (0.761) / T-score (-2.0) / Z-score (0.0) Left Femoral Neck: g/cm2 (0.779) / T-score (-1.9) / Z-score (0.3) Right Femur Total: g/cm2 (0.731) / T-score (-2.2) / Z-score (-0.2) Right Femoral Neck: g/cm2 (0.741) / T-score (-2.1) / Z-score (0.0) The T-Scores on the most recent prior examination were: Lumbar Spine (L1-L4): There has been improvement of bone density since the previous examination. Left Femur Total: which represents an improvement of 16.4%. Right Femur Total: which represents an improvement of 10.8%. BD/Dexa Bone Density Study IMPRESSION: The patient is considered osteopenic as outlined below according to World Angel[place] Organization (WHO) criteria with a high fracture risk. There has been improvement of bone density since the previous examination. Reference Information: The T-score is the number of standard deviations above or below the standard which is normal for young adults at their peak bone mineral density. The World Health Organization (WHO) interprets the T-scores as follows: Above -1 Normal bone density Between -1 and -2.5 Osteopenia Equal to / or below -2.5 Osteoporosis As a practical clinical guideline, osteopenia may be graded as follows: Mild -1 through -1.5 Moderate -1.6 through -2.0 Severe -2.1 through -2.4 The Z-score is the number of standard deviations above or below age-matched controls. A Z-score of less than -1.5 would be considered abnormal. References: 1. NIH Osteoporosis and Related Bone Diseases http://www.osteo.org 2. International Society for Clinical Densitometry http://www.iscd.org 3. National Osteoporosis Foundation http://www.nof.org Electronically Signed: Ministerio Kidd, at 9:24 EDT , Service support ,
== END ==
PROVIDERS: PCP Family Medicine; Referring Provider Family Medicine; Visit Provider Family Medicine
DX: M81.0 Age-related osteoporosis without current pathological fracture (principal); Z12.31 Encounter for screening mammogram for malignant neoplasm of breast
CPT/HCPCS: 77063; 77067; 77080

== ENCOUNTER 2020-06-14 08:19 | Outpatient (RCR) | payer MEDICARE, BC, SELFPAY ==
[2020-06-14 09:07] LABS: Hematocrit 39.2 % (37-47); Hemoglobin 12.1 g/dL (12.0-15.0); Mean Corp Hgb Conc 30.9 g/dL (32-36); Mean Corpuscular Hgb 28.8 pg (27.0-32.0); Mean Corpuscular Volume 93.3 fL (81-99); Mean Platelet Vol. 10.8 fl (6.2-12.0); Platelet Count 231 K/mm3 (150-450); RBC Distribution Width SD 51.2 fl (35.1-43.9); White Blood Count 4.6 K/mm3 (4.4-11.0)
[2020-06-14 09:36] LABS: Albumin, Serum 3.5 g/dL (3.2-5.0); BUN 24 mg/dL (7-18); BUN/Creat Ratio 17.1 RATIO (10-20); Calcium,Total 8.5 mg/dL (8.5-10.1); Chloride 112 mmol/L (98-107); EST Glomerular Filtration Rate 39 mL/min (>60); Est Glom Filt Rate - Afr Amer 47 mL/min (>60); Glucose 91 mg/dL (74-106); Magnesium 2.7 mg/dL (1.6-2.6); Phosphorus 2.8 mg/dL (2.5-4.9); Sodium Level 138 mmol/L (136-145)
[2020-06-17 20:23] LABS: Tacrolimus (FK506) 7.3 ng/mL (2.0-20.0)
== END 2020-06-14 18:00 | disposition home or self-care (01) ==
LOC: LAB 08:19
PROVIDERS: Family Provider Family Medicine; PCP Family Medicine
DX: Z94.0 Kidney transplant status (principal)
CPT/HCPCS: 36415; 80069; 80197; 83735; 85027

== ENCOUNTER → 2020-07-28 | Outpatient (CLI) | payer MEDICARE, BC, SELFPAY | END | disposition home or self-care (01) | PROVIDERS: PCP Family Medicine; Referring Provider Family Medicine; Visit Provider Family Medicine | DX: Z20.828 Contact with and (suspected) exposure to other viral communicable diseases (principal) | CPT/HCPCS: 87635; U0003 ==

== ENCOUNTER 2020-09-13 09:59 | Outpatient (RCR) | payer MEDICARE, BC, SELFPAY ==
[2020-09-13 11:10] LABS: Hematocrit 38.9 % (37-47); Hemoglobin 12.7 g/dL (12.0-15.0); Mean Corp Hgb Conc 32.6 g/dL (32-36); Mean Corpuscular Hgb 30.2 pg (27.0-32.0); Mean Corpuscular Volume 92.4 fL (81-99); Platelet Count 242 K/mm3 (150-450); RBC Distribution Width CV 14.9 % (11.6-14.6); RBC Distribution Width SD 49.6 fl (35.1-43.9); Red Blood Count 4.21 M/mm3 (4.2-5.4)
[2020-09-13 11:42] LABS: Albumin, Serum 3.5 g/dL (3.2-5.0); BUN 34 mg/dL (7-18); BUN/Creat Ratio 26.4 RATIO (10-20); Calcium,Total 9.2 mg/dL (8.5-10.1); Chloride 111 mmol/L (98-107); Creatinine, Serum 1.29 mg/dL (0.55-1.02); EST Glomerular Filtration Rate 42 mL/min (>60); Est Glom Filt Rate - Afr Amer 51 mL/min (>60); Glucose 90 mg/dL (74-106); Phosphorus 3.3 mg/dL (2.5-4.9); Potassium 4.7 mmol/L (3.5-5.1); Sodium Level 137 mmol/L (136-145)
[2020-09-19 04:29] LABS: Tacrolimus (FK506) 5.5 ng/mL (2.0-20.0)
== END 2020-09-13 18:00 | disposition home or self-care (01) ==
LOC: LAB 09:59
PROVIDERS: Family Provider Family Medicine; PCP Family Medicine
DX: D84.9 Immunodeficiency, unspecified (principal); Z94.0 Kidney transplant status
CPT/HCPCS: 36415; 80069; 80197; 85027

== ENCOUNTER 2020-12-12 08:59 | Outpatient (RCR) | payer MEDICARE, BC, SELFPAY ==
[2020-12-12 10:33] LABS: Hematocrit 39.2 % (37-47); Hemoglobin 11.9 g/dL (12.0-15.0); Mean Corp Hgb Conc 30.4 g/dL (32-36); Mean Corpuscular Hgb 28.2 pg (27.0-32.0); Mean Corpuscular Volume 92.9 fL (81-99); Mean Platelet Vol. 11.5 fl (6.2-12.0); Platelet Count 229 K/mm3 (150-450); RBC Distribution Width CV 15.4 % (11.6-14.6); RBC Distribution Width SD 52.5 fl (35.1-43.9); Red Blood Count 4.22 M/mm3 (4.2-5.4); White Blood Count 4.3 K/mm3 (4.4-11.0)
[2020-12-12 10:47] LABS: Protein, Urine (Random) 271.6 mg/dL (<11.9); Protein:Creat Ratio 1913 mg/g CRE (0-200)
[2020-12-12 11:11] LABS: PTHIN 157.2 pg/mL (18.4-80.1)
[2020-12-12 11:12] LABS: Vitamin D,25 Hydroxy 39.8 ng/mL
[2020-12-12 11:21] LABS: Hemoglobin A1c 5.3 % (3.8-5.6)
[2020-12-12 11:28] LABS: Albumin, Serum 3.4 g/dL (3.2-5.0); BUN 31 mg/dL (7-18); BUN/Creat Ratio 23.3 RATIO (10-20); Calcium,Total 9.4 mg/dL (8.5-10.1); Chloride 112 mmol/L (98-107); Cholesterol 188 mg/dL (200); Creatinine, Serum 1.33 mg/dL (0.55-1.02); EST Glomerular Filtration Rate 41 mL/min (>60); Est Glom Filt Rate - Afr Amer 49 mL/min (>60); Glucose 89 mg/dL (74-106); High Density Lipoprotein 74 mg/dL; Phosphorus 3.1 mg/dL (2.5-4.9); Potassium 5.2 mmol/L (3.5-5.1); Sodium Level 140 mmol/L (136-145); Thyroid Stim Hormone (TSH) 1.13 uIU/mL (0.358-3.74); Triglycerides 103 mg/dL; Very Low Density Lipoprotein 21 mg/dL (5-40)
[2020-12-14 12:51] LABS: Tacrolimus (FK506) 3.4 ng/mL (2.0-20.0)
== END 2020-12-12 18:00 | disposition home or self-care (01) ==
LOC: LAB 08:59
PROVIDERS: Family Provider Family Medicine; PCP Family Medicine
DX: D84.9 Immunodeficiency, unspecified (principal); E03.9 Hypothyroidism, unspecified; M81.0 Age-related osteoporosis without current pathological fracture; E56.9 Vitamin deficiency, unspecified; Z94.0 Kidney transplant status; Z79.899 Other long term (current) drug therapy
CPT/HCPCS: 36415; 80061; 80069; 80197; 82306; 82570; 83036; 83970; 84156; 84443; 85027

== ENCOUNTER 2021-03-14 09:00 | Outpatient (RCR) | payer MEDICARE, BC, SELFPAY ==
[2021-03-14 10:44] LABS: Hematocrit 39.1 % (37-47); Mean Corp Hgb Conc 30.7 g/dL (32-36); Mean Corpuscular Hgb 28.7 pg (27.0-32.0); Mean Corpuscular Volume 93.5 fL (81-99); Mean Platelet Vol. 11.3 fl (6.2-12.0); Platelet Count 234 K/mm3 (150-450); RBC Distribution Width CV 15.3 % (11.6-14.6); Red Blood Count 4.18 M/mm3 (4.2-5.4); White Blood Count 4.6 K/mm3 (4.4-11.0)
[2021-03-14 11:18] LABS: Albumin, Serum 3.4 g/dL (3.2-5.0); BUN 23 mg/dL (7-18); BUN/Creat Ratio 16.2 RATIO (10-20); Calcium,Total 8.4 mg/dL (8.5-10.1); Chloride 112 mmol/L (98-107); Creatinine, Serum 1.42 mg/dL (0.55-1.02); EST Glomerular Filtration Rate 38 mL/min (>60); Est Glom Filt Rate - Afr Amer 46 mL/min (>60); Glucose 91 mg/dL (74-106); Phosphorus 3.3 mg/dL (2.5-4.9); Potassium 4.8 mmol/L (3.5-5.1); Sodium Level 141 mmol/L (136-145)
== END 2021-03-14 18:00 | disposition home or self-care (01) ==
LOC: LAB 09:00
PROVIDERS: Family Provider Family Medicine; PCP Family Medicine
DX: D84.9 Immunodeficiency, unspecified (principal); Z94.0 Kidney transplant status
CPT/HCPCS: 36415; 80069; 80197; 85027

== ENCOUNTER → 2021-03-23 09:50 | Outpatient (CLI) | payer MEDICARE, BC, SELFPAY | PROVIDERS: PCP Family Medicine; Referring Provider Family Medicine; Visit Provider Family Medicine | DX: D84.821 Immunodeficiency due to drugs (principal) | CPT/HCPCS: 36415; 86769 ==

== ENCOUNTER 2021-06-14 08:18 | Outpatient (RCR) | payer MEDICARE, BC, SELFPAY ==
[2021-06-14 08:34] LABS: Hematocrit 37.3 % (37-47); Hemoglobin 11.8 g/dL (12.0-15.0); Mean Corp Hgb Conc 31.6 g/dL (32-36); Mean Corpuscular Hgb 29.8 pg (27.0-32.0); Mean Corpuscular Volume 94.2 fL (81-99); Platelet Count 209 K/mm3 (150-450); RBC Distribution Width CV 15.4 % (11.6-14.6); RBC Distribution Width SD 53.6 fl (35.1-43.9); Red Blood Count 3.96 M/mm3 (4.2-5.4); White Blood Count 5.9 K/mm3 (4.4-11.0)
[2021-06-14 09:07] LABS: Albumin, Serum 3.5 g/dL (3.2-5.0); BUN 34 mg/dL (7-18); BUN/Creat Ratio 25.8 RATIO (10-20); Chloride 114 mmol/L (98-107); Creatinine, Serum 1.32 mg/dL (0.55-1.02); EST Glomerular Filtration Rate 41 mL/min (>60); Est Glom Filt Rate - Afr Amer 50 mL/min (>60); Glucose 96 mg/dL (74-106); Phosphorus 3.3 mg/dL (2.5-4.9); Potassium 4.8 mmol/L (3.5-5.1); Sodium Level 141 mmol/L (136-145)
[2021-06-17 23:09] LABS: Tacrolimus (FK506) 6.2 ng/mL (2.0-20.0)
== END 2021-06-14 18:00 | disposition home or self-care (01) ==
LOC: LAB 08:18
PROVIDERS: Family Provider Family Medicine; PCP Family Medicine
DX: D84.9 Immunodeficiency, unspecified (principal); Z94.0 Kidney transplant status
CPT/HCPCS: 36415; 80069; 80197; 85027

== ENCOUNTER → 2021-09-18 09:17 | Outpatient (CLI) | payer MEDICARE, BC, SELFPAY ==
[2021-09-18 10:43] LABS: Hematocrit 37.1 % (37-47); Hemoglobin 12.1 g/dL (12.0-15.0); Mean Corp Hgb Conc 32.6 g/dL (32-36); Mean Corpuscular Hgb 29.4 pg (27.0-32.0); Mean Corpuscular Volume 90.3 fL (81-99); Mean Platelet Vol. 11.4 fl (6.2-12.0); Platelet Count 237 K/mm3 (150-450); RBC Distribution Width CV 14.6 % (11.6-14.6); RBC Distribution Width SD 47.9 fl (35.1-43.9); Red Blood Count 4.11 M/mm3 (4.2-5.4); White Blood Count 5.3 K/mm3 (4.4-11.0)
[2021-09-18 11:17] LABS: Protein, Urine (Random) 379.3 mg/dL (<11.9)
[2021-09-18 11:24] LABS: Albumin, Serum 3.5 g/dL (3.2-5.0); BUN 32 mg/dL (7-18); BUN/Creat Ratio 23.7 RATIO (10-20); Calcium,Total 10.1 mg/dL (8.5-10.1); Chloride 108 mmol/L (98-107); Creatinine, Serum 1.35 mg/dL (0.55-1.02); EST Glomerular Filtration Rate 40 mL/min (>60); Est Glom Filt Rate - Afr Amer 48 mL/min (>60); Glucose 90 mg/dL (74-106); Phosphorus 4.6 mg/dL (2.5-4.9); Potassium 4.9 mmol/L (3.5-5.1); Sodium Level 140 mmol/L (136-145)
[2021-09-21 16:57] LABS: Tacrolimus (FK506) 4.8 ng/mL (2.0-20.0)
== END ==
PROVIDERS: PCP Family Medicine
DX: Z13.89 Encounter for screening for other disorder (principal); Z94.0 Kidney transplant status; D84.9 Immunodeficiency, unspecified
CPT/HCPCS: 36415; 80069; 80197; 82570; 84156; 85027

== ENCOUNTER → 2021-12-12 09:07 | Outpatient (CLI) | payer MEDICARE, BC, SELFPAY ==
[2021-12-12 10:18] LABS: Absolute Lymphocyte Count 0.97 X10^3/uL (0.83-4.51); Absolute Neutrophil Count 3.5 X10^3/uL (2.0-7.7); Basophil# 0.03 X10^3/uL; Basophil% 0.6 % (0-1); Eosinophil# 0.17 X10^3/uL; Eosinophils% 3.2 % (0-5); Hematocrit 36.5 % (37-47); Hemoglobin 11.8 g/dL (12.0-15.0); Lymphocyte # 0.97 X10^3/ul (0.83-4.51); Lymphocyte % 18.4 % (19-41); Mean Corp Hgb Conc 32.3 g/dL (32-36); Mean Corpuscular Hgb 29.1 pg (27.0-32.0); Mean Corpuscular Volume 89.9 fL (81-99); Mean Platelet Vol. 11.1 fl (6.2-12.0); Monocyte# 0.61 X10^3/uL; Monocyte% 11.6 % (0-10); NRBC Flagged by Analyzer 0 % (0-5); Neutrophil # 3.46 X10^3/uL (2.7-7.7); Neutrophil % 65.8 % (47-70); Platelet Count 228 K/mm3 (150-450); RBC Distribution Width CV 15.3 % (11.6-14.6); RBC Distribution Width SD 50.4 fl (35.1-43.9); Red Blood Count 4.06 M/mm3 (4.2-5.4); White Blood Count 5.3 K/mm3 (4.4-11.0)
[2021-12-12 10:33] LABS: Albumin, Serum 3.5 g/dL (3.2-5.0); BUN 25 mg/dL (7-18); BUN/Creat Ratio 17.7 RATIO (10-20); Calcium,Total 9.2 mg/dL (8.5-10.1); Chloride 107 mmol/L (98-107); Creatinine, Serum 1.41 mg/dL (0.55-1.02); EST Glomerular Filtration Rate 38 mL/min (>60); Est Glom Filt Rate - Afr Amer 46 mL/min (>60); Glucose 96 mg/dL (74-106); Phosphorus 3.9 mg/dL (2.5-4.9); Potassium 4.5 mmol/L (3.5-5.1); Sodium Level 138 mmol/L (136-145)
[2021-12-12 10:34] LABS: Protein, Urine (Random) 198.6 mg/dL (<11.9); Protein:Creat Ratio 1290 mg/g CRE (0-200)
== END ==
PROVIDERS: PCP Family Medicine
DX: D64.9 Anemia, unspecified (principal); Z13.89 Encounter for screening for other disorder; Z94.0 Kidney transplant status
CPT/HCPCS: 36415; 80069; 80197; 82570; 84156; 85025

== ENCOUNTER 2022-01-08 11:32 | Outpatient (CLI) | payer MEDICARE, BC, SELFPAY ==
[2022-01-08 12:30] LABS: Absolute Lymphocyte Count 0.87 X10^3/uL (0.83-4.51); Absolute Neutrophil Count 6.3 X10^3/uL (2.0-7.7); Basophil# 0.02 X10^3/uL; Basophil% 0.2 % (0-1); Eosinophil# 0.14 X10^3/uL; Eosinophils% 1.7 % (0-5); Hematocrit 36.2 % (37-47); Hemoglobin 11.6 g/dL (12.0-15.0); Lymphocyte # 0.87 X10^3/ul (0.83-4.51); Lymphocyte % 10.6 % (19-41); Mean Corpuscular Volume 90.5 fL (81-99); Mean Platelet Vol. 10.9 fl (6.2-12.0); Monocyte# 0.86 X10^3/uL; Monocyte% 10.5 % (0-10); NRBC Flagged by Analyzer 0 % (0-5); Neutrophil # 6.28 X10^3/uL (2.7-7.7); Neutrophil % 76.5 % (47-70); Platelet Count 231 K/mm3 (150-450); RBC Distribution Width CV 14.7 % (11.6-14.6); RBC Distribution Width SD 48.6 fl (35.1-43.9); White Blood Count 8.2 K/mm3 (4.4-11.0)
[2022-01-08 13:17] LABS: ALB/GLOB Ratio 1.1 RATIO (0.9-2.4); AST(SGOT) 12 U/L (15-37); Alanine Aminotransfer ALT/SGPT 15 U/L (13-56); Albumin, Serum 3.4 g/dL (3.2-5.0); Alkaline Phosphatase 73 U/L (45-117); Anion Gap 8 (5-15); BUN 27 mg/dL (7-18); BUN/Creat Ratio 19.3 RATIO (10-20); Calcium,Total 8.7 mg/dL (8.5-10.1); Chloride 103 mmol/L (98-107); EST Glomerular Filtration Rate 38 mL/min (>60); Est Glom Filt Rate - Afr Amer 46 mL/min (>60); Glucose 90 mg/dL (74-106); Potassium 4.5 mmol/L (3.5-5.1); Protein, Total 6.4 g/dL (6.4-8.2); Sodium Level 135 mmol/L (136-145); Uric Acid 6.2 mg/dL (2.6-6.0)
== END 2022-01-08 23:59 | disposition home or self-care (01) ==
LOC: LAB 11:34
PROVIDERS: PCP Family Medicine; Visit Provider Podiatrist
DX: L03.115 Cellulitis of right lower limb (principal); M10.9 Gout, unspecified
CPT/HCPCS: 36415; 80053; 84550; 85025

== ENCOUNTER → 2022-02-12 | Outpatient (CLI) | payer MEDICARE, BC, SELFPAY ==
[2022-02-12 10:22] LABS: Cholesterol 191 mg/dL (200); High Density Lipoprotein 83 mg/dL; Thyroid Stim Hormone (TSH) 0.39 uIU/mL (0.358-3.74); Triglycerides 110 mg/dL; Uric Acid 6.4 mg/dL (2.6-6.0); Very Low Density Lipoprotein 22 mg/dL (5-40)
== END | disposition home or self-care (01) ==
PROVIDERS: PCP Family Medicine; Visit Provider Family Medicine
DX: E03.9 Hypothyroidism, unspecified (principal); D64.9 Anemia, unspecified; E79.0 Hyperuricemia without signs of inflammatory arthritis and tophaceous disease
CPT/HCPCS: 36415; 80061; 84443; 84550

== ENCOUNTER → 2022-03-09 | Outpatient (CLI) | payer MEDICARE, BC, SELFPAY ==
[2022-03-09 10:11] VITALS: BP 109/70; PULSE 70; RESP 16; TEMP 36.2; O2SAT 100
[2022-03-09 11:45] VITALS: BP 109/77; PULSE 64; RESP 16; O2SAT 99
== END | disposition home or self-care (01) ==
PROVIDERS: PCP Family Medicine; Referring Provider Family Medicine; Visit Provider Family Medicine
DX: D84.821 Immunodeficiency due to drugs (principal)
CPT/HCPCS: 96372; Q0220

== ENCOUNTER 2022-03-14 08:41 | Outpatient (RCR) | payer MEDICARE, BC, SELFPAY ==
[2021-07-13 21:51] VITALS: BMI 20.7
[2022-03-14 09:26] LABS: Hematocrit 36.9 % (37-47); Hemoglobin 11.9 g/dL (12.0-15.0); Mean Corp Hgb Conc 32.2 g/dL (32-36); Mean Corpuscular Hgb 29.5 pg (27.0-32.0); Mean Corpuscular Volume 91.3 fL (81-99); Mean Platelet Vol. 10.9 fl (6.2-12.0); Platelet Count 218 K/mm3 (150-450); RBC Distribution Width CV 15.6 % (11.6-14.6); RBC Distribution Width SD 52.5 fl (35.1-43.9); Red Blood Count 4.04 M/mm3 (4.2-5.4); White Blood Count 4.7 K/mm3 (4.4-11.0)
[2022-03-14 09:57] LABS: Protein, Urine (Random) 344.2 mg/dL (<11.9)
[2022-03-14 12:01] LABS: Albumin, Serum 3.4 g/dL (3.2-5.0); BUN 26 mg/dL (7-18); BUN/Creat Ratio 19.1 RATIO (10-20); Calcium,Total 8.6 mg/dL (8.5-10.1); Chloride 109 mmol/L (98-107); Creatinine, Serum 1.36 mg/dL (0.55-1.02); EST Glomerular Filtration Rate 40 mL/min (>60); Est Glom Filt Rate - Afr Amer 48 mL/min (>60); Glucose 93 mg/dL (74-106); Phosphorus 3.1 mg/dL (2.5-4.9); Potassium 4.9 mmol/L (3.5-5.1); Sodium Level 140 mmol/L (136-145)
[2022-03-19 18:24] LABS: Tacrolimus (FK506) 7.4 ng/mL (2.0-20.0)
== END 2022-03-14 23:59 | disposition home or self-care (01) ==
LOC: LAB 08:41
PROVIDERS: Family Provider Family Medicine; PCP Family Medicine
DX: D84.9 Immunodeficiency, unspecified (principal); Z94.0 Kidney transplant status; Z13.89 Encounter for screening for other disorder
CPT/HCPCS: 36415; 80069; 80197; 82570; 84156; 85027

== ENCOUNTER → 2022-04-19 | Outpatient (CLI) | payer MEDICARE, BC, SELFPAY ==
--- NOTE | 2022-04-19 10:25 | BI_ITS ---
MAMMOGRAPHY - BILATERAL SCREENING REASON FOR EXAM: Female, 81 years old. Routine annual screening examination. PERTINENT HISTORY: Non-contributory. TECHNIQUE: Digital bilateral breast cecilia (3D mammographic acquisition) in the CC and MLO projections. 2-D mediolateral oblique (MLO) and craniocaudad (CC) views of both breasts were obtained. CAD: Full Field Digital Mammography with Computer Added Detection was performed. COMPARISON: Comparison is made with prior study 04/13/2020 and 07/23/2018. FINDINGS: Breast Composition: The breasts are heterogeneously dense, which may obscure small masses. There are no dominant masses or suspicious calcifications. Stable bilateral secretory calcifications. No other significant abnormalities are identified. There has been no significant change since the prior study. BI/SCRN MAMM (CAD)W/CECILIA BILAT IMPRESSION: Stable bilateral screening mammogram. Yearly follow-up mammogram recommended. (A) ASSESSMENT CATEGORY: BIRADS Category 2: Benign. A letter regarding these results will be sent to the patient by the facility within 30 days. Approximately 10% of breast cancers are not detected by mammography. A normal mammogram should not delay biopsy of a clinically suspicious abnormality. [id number] Electronically Signed: Ministerio Kidd MD at 12:21 EDT ,
--- NOTE | 2022-04-19 10:30 | BD_ITS ---
STUDY: DUAL ENERGY X-RAY ABSORPTIOMETRY / DXA REASON FOR EXAM: Female, 81 years old. M810. The patient is postmenopausal. TECHNIQUE: Bone Mineral Density (BMD) measurements of lumbar spine and bilateral hips were obtained. COMPARISON: Comparison is made with prior study 04/13/2020 and 12/15/2015. FINDINGS: Lumbar Spine (L1-L4): g/cm2 (0.806) / T-score (-2.2) / Z-score (0.6) Findings are suggestive of osteopenia with a high fracture risk. Left Femur Total: g/cm2 (0.687) / T-score (-2.1) / Z-score (0.1) Left Femoral Neck: g/cm2 (0.633) / T-score (-1.9) / Z-score (0.4) Right Femur Total: g/cm2 (0.676) / T-score (-2.2) / Z-score (0.0) Right Femoral Neck: g/cm2 (0.589) / T-score (-2.3) / Z-score (0.0) The T-Scores on the most recent prior examination were: Lumbar Spine (L1-L4): There has been worsening of bone density since the previous examination. Left Femur Total: which represents a worsening of 2%. Right Femur Total: which represents an improvement of 0.4%. BD/Dexa Bone Density Study IMPRESSION: The patient is considered osteopenic as outlined below according to World Angel[place] Organization (WHO) criteria with a high fracture risk. There has been worsening of bone density since the previous examination. Reference Information: The T-score is the number of standard deviations above or below the standard which is normal for young adults at their peak bone mineral density. The World Health Organization (WHO) interprets the T-scores as follows: Above -1 Normal bone density Between -1 and -2.5 Osteopenia Equal to / or below -2.5 Osteoporosis As a practical clinical guideline, osteopenia may be graded as follows: Mild -1 through -1.5 Moderate -1.6 through -2.0 Severe -2.1 through -2.4 The Z-score is the number of standard deviations above or below age-matched controls. A Z-score of less than -1.5 would be considered abnormal. References: 1. NIH Osteoporosis and Related Bone Diseases www osteo.org 2. International Society for Clinical Densitometry www iscd.org 3. National Osteoporosis Foundation www nof.org Electronically Signed: Ministerio Kidd MD at 13:14 EDT ,
== END | disposition home or self-care (01) ==
LOC: OPBD 10:24
PROVIDERS: PCP Family Medicine; Visit Provider Family Medicine
DX: M81.0 Age-related osteoporosis without current pathological fracture (principal); Z78.0 Asymptomatic menopausal state; Z12.31 Encounter for screening mammogram for malignant neoplasm of breast
CPT/HCPCS: 77063; 77067; 77080

== ENCOUNTER 2022-06-14 08:27 | Outpatient (RCR) | payer MEDICARE, BC, SELFPAY ==
[2022-04-13 07:21] VITALS: BMI 20.7
[2022-06-14 09:39] LABS: Hematocrit 38.9 % (37-47); Hemoglobin 12.4 g/dL (12.0-15.0); Mean Corp Hgb Conc 31.9 g/dL (32-36); Mean Corpuscular Hgb 29.7 pg (27.0-32.0); Mean Corpuscular Volume 93.1 fL (81-99); Mean Platelet Vol. 10.5 fl (6.2-12.0); Platelet Count 281 K/mm3 (150-450); RBC Distribution Width CV 15.5 % (11.6-14.6); RBC Distribution Width SD 52.5 fl (35.1-43.9); Red Blood Count 4.18 M/mm3 (4.2-5.4)
[2022-06-14 10:03] LABS: Protein, Urine (Random) 205.9 mg/dL (<11.9); Protein:Creat Ratio 2238 mg/g CRE (0-200)
[2022-06-14 10:09] LABS: Albumin, Serum 3.5 g/dL (3.2-5.0); BUN 24 mg/dL (7-18); BUN/Creat Ratio 18.3 RATIO (10-20); Chloride 112 mmol/L (98-107); Creatinine, Serum 1.31 mg/dL (0.55-1.02); EST Glomerular Filtration Rate 41 mL/min (>60); Est Glom Filt Rate - Afr Amer 50 mL/min (>60); Glucose 93 mg/dL (74-106); Phosphorus 3.2 mg/dL (2.5-4.9); Potassium 4.6 mmol/L (3.5-5.1); Sodium Level 142 mmol/L (136-145)
[2022-06-19 09:14] LABS: Tacrolimus (FK506) 4.9 ng/mL (2.0-20.0)
== END 2022-06-14 18:00 | disposition home or self-care (01) ==
LOC: LAB 08:27
PROVIDERS: Family Provider Family Medicine; PCP Family Medicine
DX: Z13.89 Encounter for screening for other disorder (principal); D84.9 Immunodeficiency, unspecified; Z94.0 Kidney transplant status
CPT/HCPCS: 36415; 80069; 80197; 82570; 84156; 85027

== ENCOUNTER → 2022-08-24 | Outpatient (CLI) | payer MEDICARE, BC, SELFPAY ==
[2022-08-24 17:18] LABS: Vitamin D,25 Hydroxy 42.8 ng/mL
[2022-08-24 17:39] LABS: PTHIN 449.3 pg/mL (18.4-80.1)
== END | disposition home or self-care (01) ==
LOC: MFPLAB 12:30
PROVIDERS: PCP Family Medicine; Referring Provider Family Medicine; Visit Provider Family Medicine
DX: T86.10 Unspecified complication of kidney transplant (principal); D84.821 Immunodeficiency due to drugs; M81.0 Age-related osteoporosis without current pathological fracture
CPT/HCPCS: 36415; 82306; 83970

== ENCOUNTER → 2022-09-07 | Outpatient (CLI) | payer MEDICARE, BC, SELFPAY ==
[2022-09-07 10:07] VITALS: BP 141/69; PULSE 67; RESP 14; TEMP 35.9; O2SAT 99; BMI 20.5
[2022-09-07 11:30] VITALS: BP 139/76; PULSE 77; RESP 14; TEMP 36.8; O2SAT 97
== END | disposition home or self-care (01) ==
LOC: MEDOUTP 09:59
PROVIDERS: PCP Family Medicine; Referring Provider Family Medicine; Visit Provider Family Medicine
DX: D84.821 Immunodeficiency due to drugs (principal)
CPT/HCPCS: 96372; Q0220

== ENCOUNTER → 2022-09-13 | Outpatient (CLI) | payer MEDICARE, BC, SELFPAY ==
[2022-09-13 08:49] LABS: Absolute Lymphocyte Count 1.02 X10^3/uL (0.83-4.51); Absolute Neutrophil Count 4.4 X10^3/uL (2.0-7.7); Basophil# 0.04 X10^3/uL; Basophil% 0.6 % (0-1); Eosinophil# 0.17 X10^3/uL; Eosinophils% 2.7 % (0-5); Hematocrit 39.5 % (37-47); Hemoglobin 12.5 g/dL (12.0-15.0); Lymphocyte # 1.02 X10^3/ul (0.83-4.51); Lymphocyte % 16.2 % (19-41); Mean Corp Hgb Conc 31.6 g/dL (32-36); Mean Corpuscular Hgb 29.1 pg (27.0-32.0); Mean Corpuscular Volume 92.1 fL (81-99); Mean Platelet Vol. 10.9 fl (6.2-12.0); Monocyte# 0.63 X10^3/uL; NRBC Flagged by Analyzer 0 % (0-5); Neutrophil # 4.42 X10^3/uL (2.7-7.7); Platelet Count 227 K/mm3 (150-450); RBC Distribution Width CV 15.1 % (11.6-14.6); RBC Distribution Width SD 50.6 fl (35.1-43.9); Red Blood Count 4.29 M/mm3 (4.2-5.4); White Blood Count 6.3 K/mm3 (4.4-11.0)
[2022-09-13 08:51] LABS: Protein, Urine (Random) 249.9 mg/dL (<11.9); Protein:Creat Ratio 1983 mg/g CRE (0-200)
[2022-09-13 09:13] LABS: Albumin, Serum 3.3 g/dL (3.2-5.0); BUN 21 mg/dL (7-18); BUN/Creat Ratio 18.6 RATIO (10-20); Calcium,Total 8.4 mg/dL (8.5-10.1); Chloride 107 mmol/L (98-107); Creatinine, Serum 1.13 mg/dL (0.55-1.02); EST Glomerular Filtration Rate 49 mL/min (>60); Est Glom Filt Rate - Afr Amer 59 mL/min (>60); Glucose 97 mg/dL (74-106); Phosphorus 2.4 mg/dL (2.5-4.9); Potassium 4.8 mmol/L (3.5-5.1); Sodium Level 136 mmol/L (136-145)
[2022-09-13 09:18] LABS: Vitamin D,25 Hydroxy 37.9 ng/mL
[2022-09-17 12:13] LABS: Tacrolimus (FK506) 7.5 ng/mL (2.0-20.0)
== END | disposition home or self-care (01) ==
PROVIDERS: PCP Family Medicine
DX: D84.9 Immunodeficiency, unspecified (principal)
CPT/HCPCS: 36415; 80069; 80197; 82306; 82570; 83970; 84156; 85025

== ENCOUNTER → 2022-09-21 | Outpatient (CLI) | payer MEDICARE, BC, SELFPAY | END | disposition home or self-care (01) | PROVIDERS: PCP Family Medicine; Referring Provider Family Medicine; Visit Provider Family Medicine | DX: D84.821 Immunodeficiency due to drugs (principal) | CPT/HCPCS: 36415 ==

== ENCOUNTER 2022-11-14 08:20 | Outpatient (RCR) | payer MEDICARE, BC, SELFPAY ==
[2022-07-13 22:00] VITALS: BMI 20.7
[2022-11-14 09:50] LABS: Hematocrit 35.9 % (37-47); Hemoglobin 11.7 g/dL (12.0-15.0); Mean Corp Hgb Conc 32.6 g/dL (32-36); Mean Corpuscular Hgb 29.3 pg (27.0-32.0); Mean Corpuscular Volume 89.8 fL (81-99); Mean Platelet Vol. 10.9 fl (6.2-12.0); Platelet Count 301 K/mm3 (150-450); RBC Distribution Width CV 14.6 % (11.6-14.6); RBC Distribution Width SD 48.1 fl (35.1-43.9)
[2022-11-14 10:03] LABS: Protein:Creat Ratio 1171 mg/g CRE (0-200)
[2022-11-14 10:08] LABS: PTHIN 186.3 pg/mL (18.4-80.1)
[2022-11-14 10:10] LABS: Albumin, Serum 3.1 g/dL (3.2-5.0); BUN 24 mg/dL (7-18); Calcium,Total 8.2 mg/dL (8.5-10.1); Chloride 104 mmol/L (98-107); Creatinine, Serum 1.26 mg/dL (0.55-1.02); EST Glomerular Filtration Rate 43 mL/min (>60); Est Glom Filt Rate - Afr Amer 52 mL/min (>60); Glucose 97 mg/dL (74-106); Magnesium 1.8 mg/dL (1.6-2.6); Phosphorus 3.7 mg/dL (2.5-4.9); Potassium 4.5 mmol/L (3.5-5.1); Sodium Level 137 mmol/L (136-145)
[2022-11-14 10:11] LABS: Vitamin D,25 Hydroxy 45.7 ng/mL
[2022-11-16 17:15] LABS: Tacrolimus (FK506) 5.2 ng/mL (2.0-20.0)
== END 2022-11-14 18:00 | disposition home or self-care (01) ==
LOC: LAB 08:20
PROVIDERS: Family Provider Family Medicine; PCP Family Medicine
DX: D84.9 Immunodeficiency, unspecified; Z94.0 Kidney transplant status; E55.9 Vitamin D deficiency, unspecified
CPT/HCPCS: 36415; 80069; 80197; 82306; 82570; 83735; 83970; 84156; 85027

== ENCOUNTER 2023-02-11 08:39 | Outpatient (RCR) | payer MEDICARE, BC, SELFPAY ==
[2022-12-11 22:28] VITALS: BMI 20.7
[2023-02-11 09:11] LABS: Hematocrit 38.9 % (37-47); Hemoglobin 12.6 g/dL (12.0-15.0); Mean Corp Hgb Conc 32.4 g/dL (32-36); Mean Corpuscular Hgb 29.4 pg (27.0-32.0); Mean Corpuscular Volume 90.7 fL (81-99); Mean Platelet Vol. 10.3 fl (6.2-12.0); Platelet Count 250 K/mm3 (150-450); RBC Distribution Width CV 14.9 % (11.6-14.6); RBC Distribution Width SD 49.6 fl (35.1-43.9); Red Blood Count 4.29 M/mm3 (4.2-5.4); White Blood Count 4.9 K/mm3 (4.4-11.0)
[2023-02-11 09:34] LABS: Albumin, Serum 3.3 g/dL (3.2-5.0); BUN 22 mg/dL (7-18); BUN/Creat Ratio 17.7 RATIO (10-20); Calcium,Total 7.9 mg/dL (8.5-10.1); Chloride 105 mmol/L (98-107); Creatinine, Serum 1.24 mg/dL (0.55-1.02); EST Glomerular Filtration Rate 44 mL/min (>60); Est Glom Filt Rate - Afr Amer 53 mL/min (>60); Glucose 94 mg/dL (74-106); Magnesium 1.9 mg/dL (1.6-2.6); Phosphorus 3.9 mg/dL (2.5-4.9); Potassium 4.3 mmol/L (3.5-5.1); Sodium Level 134 mmol/L (136-145)
[2023-02-11 09:35] LABS: PTHIN 283.4 pg/mL (18.4-80.1)
[2023-02-11 09:36] LABS: Protein:Creat Ratio 2265 mg/g CRE (0-200)
== END 2023-02-11 10:00 | disposition home or self-care (01) ==
LOC: LAB 08:39
PROVIDERS: Family Provider Family Medicine; PCP Family Medicine
DX: D84.9 Immunodeficiency, unspecified (principal); E55.9 Vitamin D deficiency, unspecified; Z94.0 Kidney transplant status
CPT/HCPCS: 36415; 80069; 80197; 82306; 82570; 83735; 83970; 84156; 85027

== ENCOUNTER 2023-03-05 12:52 | Outpatient (RCR) | payer MEDICARE, BC, SELFPAY ==
--- NOTE | 2023-03-05 15:25 | HP.OTEVAL ---
Patient's Visit Information MU OCONNOR is a 82 year old F, referred to Occupational Therapy by Dr. Ha See MD, with a diagnosis of CTS. Date of Evaluation: 03/05/23 Occupational Therapist: Cecilia Urena, LETITIA/Merrick, CHT - Subjective This 82 year old female was seen for OT with dx of CTS. pt states her fingers go numb when she drives for more than 20-25min. pt states any other time is when she is push mowing her grass. Pt states the handle for her mower is small. states she can mow about 20-25 min prior to fingers going numb. States she takes her hands of and shakes them and tingling does go away. pt states she wants to continue mowing and driving. denies needing assistance for ADLs or IADLs. completely IND. pt states symptoms have been going on for about - 2 years. pt is right handed. pt states OA has not limited her but tingling is bothersome. pt would like to know what she can do to decrease tingling. - ROM ROM Comments: pt demo with multiple bilateral OA deformities. pt demo full flexion and extension of all digits. Bilateral thumb shoulder sign (indication of subluxation at CMCJ and trapezium) - Strength Drawbridge Operator: 20# left 30# Lateral Pinch: NT due to thumb dislocation Strength Comments: pt demo full composite fist with bilateral hand despite the OA deformities. Pt demo full digit flexion and extension. - Sensation Sensation Comments: denies at this time. 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 - Quick DASH-Disab of Arm,Shoulder& Hand Quick DASH Score: 11.3625 - Rehabilitation General Assessment: pts symptoms of median nerve entrapment are exacerbated with prolonged flexion of digits at MCP and PIPJ. Pt demo need for skilled OT services to ed. pt on joint protection heidi. ad. eq. and AROM ex. 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 pt receptive and felt this would help. Therapist also advised decrease in time she is mowing to give nerve break. instructed in ROM ex. and median nerve glides. pt demo understanding and agree to HEP. pt was given contact information if she had questions. - Anticipated Interventions Joint Protection/Energy Conservation, Ergonomic Education, Education re assistive Equipment, Education re Diagnosis, Home Program - Visit Plan General Plan: pt given HEP and ed. on joint protection heidi, to continue to perform her ADLs and IADL tasks. pt declined scheduling and will call if she has questions or concerns. TEXT: Thank you for the opportunity to evaluate your patient. For Medicare and Medicare HMO plans, please review the plan of care and approve it. It will need to be FAXED BACK to us at [phone] for Medicare purposes. Please let me know if there are questions or concerns regarding this plan of care. Physician Signature: Date:
--- NOTE | 2023-05-17 09:53 | HP.OTDCSUM_ITS ---
Discharge Summary D/C Summary: It has been my pleasure to treat MU OCONNOR under orders from Dr. Ha See MD, for the diagnosis of CTS for a total of 1 visit(s). Please see the following information for a summary of their discharge status. Plan Plan: pt requested HEP only. D/C Information Discharge Comments: Pt was seen for eval only and given HEP on CTS. pt has not scheduled further apts and is d/c at this time. d/c sentence: If there are questions or concerns regarding this patient's occupational therapy, please fell free to call me at [phone]. Thank you for the refer ral of this patient. Sincerely, Cecilia Urena, OTR/L, CHT
== END 2023-03-05 19:00 | disposition home or self-care (01) ==
LOC: OT 12:52
PROVIDERS: PCP Family Medicine; Referring Provider Family Medicine; Visit Provider Family Medicine
DX: R20.2 Paresthesia of skin (principal); G56.00 Carpal tunnel syndrome, unspecified upper limb
CPT/HCPCS: 97166

== ENCOUNTER 2023-05-15 08:24 | Outpatient (RCR) | payer MEDICARE, BC, SELFPAY ==
[2023-03-14 08:15] VITALS: BMI 20.7
[2023-05-15 10:04] LABS: Hematocrit 37.7 % (37-47); Hemoglobin 12.1 g/dL (12.0-15.0); Mean Corp Hgb Conc 32.1 g/dL (32-36); Mean Corpuscular Hgb 29.5 pg (27.0-32.0); Mean Platelet Vol. 10.9 fl (6.2-12.0); Platelet Count 258 K/mm3 (150-450)
[2023-05-15 10:18] LABS: Protein, Urine (Random) 106.5 mg/dL (<11.9); Protein:Creat Ratio 1243 mg/g CRE (0-200)
[2023-05-15 10:41] LABS: PTHIN 276.7 pg/mL (18.4-80.1)
[2023-05-15 10:46] LABS: Vitamin D,25 Hydroxy 47.6 ng/mL
[2023-05-15 10:59] LABS: Albumin, Serum 3.4 g/dL (3.2-5.0); BUN 30 mg/dL (7-18); BUN/Creat Ratio 24.4 RATIO (10-20); Calcium,Total 7.6 mg/dL (8.5-10.1); Chloride 108 mmol/L (98-107); Creatinine, Serum 1.23 mg/dL (0.55-1.02); EST Glomerular Filtration Rate 44 mL/min (>60); Est Glom Filt Rate - Afr Amer 54 mL/min (>60); Glucose 89 mg/dL (74-106); Phosphorus 3.4 mg/dL (2.5-4.9); Potassium 4.3 mmol/L (3.5-5.1); Sodium Level 137 mmol/L (136-145)
[2023-05-18 10:08] LABS: Tacrolimus (FK506) 7.3 ng/mL (2.0-20.0)
== END 2023-05-15 18:00 | disposition home or self-care (01) ==
LOC: LAB 08:24
PROVIDERS: Family Provider Family Medicine; PCP Family Medicine
DX: E55.9 Vitamin D deficiency, unspecified; Z94.0 Kidney transplant status
CPT/HCPCS: 36415; 80069; 80197; 82306; 82570; 83735; 83970; 84156; 85027

== ENCOUNTER → 2023-07-26 | Outpatient (CLI) | payer MEDICARE, BC, SELFPAY ==
--- NOTE | 2023-07-26 12:57 | ECHOD_ITS ---
Reason For Study: Abn EKG Procedure This was a 2D Doppler, Color Flow transthoracic echocardiogram. Exam performed in department. Left Ventricle Normal LV size. Left ventricular systolic function is normal. The estimated ejection fraction is 70 %. Stage 1 diastolic dysfunction. No regional wall motion abnormalities noted. Right Ventricle Normal RV size. Normal systolic function. Atria Normal left atrium. Normal right atrium. Mitral Valve There is mild mitral annular calcification. Tricuspid Valve Normal tricuspid valve. Mild (1+) tricuspid valve insufficiency. Pulmonary artery systolic pressure is 28 mmHg. Aortic Valve Trisinus/trileaflet aortic valve. Pulmonic Valve Normal pulmonic valve. Great Vessels Normal aortic root. The pulmonary artery is normal size. Normal inferior vena cava. Pericardium/Pleural No pericardial effusion. MMode/2D Measurements & Calculations LVIDd: 4.4 cm IVSd: 0.82 cm Ao root diam: 3.3 cm LVIDs: 2.4 cm LVPWd: 0.86 cm RVDd: 3.4 cm FS: 45.0 % LAV(MOD-bp): 31.6 ml LVAd ap4: 16.9 cm2 SV(MOD-sp4): 27.9 ml LAV(MOD-bp) Indexed: 22.3 ml/m2 LVLd ap4: 5.8 cm LAV(MOD-sp2): 21.7 ml EDV(MOD-sp4): 40.2 ml LAV(MOD-sp4): 29.2 ml EDV(sp4-el): 41.9 ml LVAs ap4: 8.2 cm2 LVLs ap4: 4.5 cm ESV(MOD-sp4): 12.4 ml ESV(sp4-el): 12.6 ml EF(MOD-sp4): 69.3 % EF(sp4-el): 70.0 % SV(sp4-el): 29.3 ml LA A4 area: 13.9 cm2 LA dimension(2D): 4.2 cm RA A4 area: 16.8 cm2 TAPSE: 2.2 cm Time Measurements MV dec time: 0.35 sec Doppler Measurements & Calculations MV E max neno: 62.5 cm/sec Lat Peak E' Neno: 6.2 cm/sec Med Peak E' Neno: 5.2 cm/sec MV A max neno: 101.9 cm/sec E/E' lat: 10.2 E/E' med: 11.9 MV E/A: 0.61 Ao V2 max: 153.1 cm/sec LV V1 max: 115.4 cm/sec MV dec slope: 177.9 cm/sec2 Ao max P.4 mmHg LV V1 max P.3 mmHg Ao V2 mean: 107.1 cm/sec Ao mean P.0 mmHg Ao V2 VTI: 31.8 cm PA V2 max: 80.3 cm/sec PI end-d neno: 143.6 cm/sec TR max neno: 245.4 cm/sec TR max P.1 mmHg ECHO/Echo Complete Interpretation Summary Normal LV size. Left ventricular systolic function is normal. The estimated ejection fraction is 70 %. Stage 1 diastolic dysfunction. There is mild mitral annular calcification. Ordering Physician: Alexander Torres Referring Physician: Ha See Performed By: Annie Coreas, JASS, RVT
--- NOTE | 2023-07-26 12:57 | CDU_ITS ---
Reason For Study: Carotid bruit Rt. Velocities/BP Lt. Velocities/BP Prox CCA 73/15.4 cm/sec. Prox CCA 54.1/10.7 cm/sec. Mid CCA 64.5/16.3 cm/sec. Mid CCA 50.4/15.4 cm/sec. Dist CCA 60.7/14.5 cm/sec. Dist CCA 50.4/14.5 cm/sec. Prox ICA 42.9/13.7 cm/sec. Prox ICA 36.2/12.6 cm/sec. Mid ICA 55.2/16.8 cm/sec. Mid ICA 57.9/19.2 cm/sec. Dist ICA 53.9/17.9 cm/sec. Dist ICA 54.1/21.1 cm/sec. Rt. ICA/CCA = 0.86. Lt. ICA/CCA = 1.15. Prox ECA 63.6/6.9 cm/sec. Prox ECA 65.5/6.9 cm/sec. Rt. Vert. 37.1/10.7 cm/sec. Lt. Vert. 37.2/11.6 cm/sec. Right Extracranial There is intimal thickening but no significant atherosclerotic plaque noted in the right common carotid artery. There is heterogeneous, irregular atherosclerotic plaque noted in the right internal carotid artery. There is intimal thickening but no significant atherosclerotic plaque noted in the right external carotid artery. Antegrade flow is noted in the right vertebral artery. Left Extracranial There is intimal thickening but no significant atherosclerotic plaque noted in the left common carotid artery. There is heterogeneous, irregular atherosclerotic plaque noted in the left internal carotid artery. There is intimal thickening but no significant atherosclerotic plaque noted in the left external carotid artery. Antegrade flow is noted in the left vertebral artery. Procedure Carotid Duplex [id number]. This is a Carotid Duplex examination using B-mode, color flow and specral Doppler. Exam performed in department. VL/Carotid Duplex Ultrasound Interpretation Summary Mild (<50%) stenosis right extracranial internal carotid. Mild (<50%) stenosis left extracranial internal carotid. Patent and antegrade vertebrals bilaterally. Ordering Physician: Alexander Torres Referring Physician: Ha See MD Performed By: Birdie Dawn RVT
== END | disposition home or self-care (01) ==
LOC: CVS 12:57
PROVIDERS: PCP Family Medicine; Referring Provider Internal Medicine Cardiovascular Disease; Visit Provider Internal Medicine Cardiovascular Disease
DX: R09.89 Other specified symptoms and signs involving the circulatory and respiratory systems (principal); R94.31 Abnormal electrocardiogram [ECG] [EKG]
CPT/HCPCS: 93306; 93880

== ENCOUNTER 2023-08-14 08:24 | Outpatient (RCR) | payer MEDICARE, BC, SELFPAY ==
[2023-06-13 23:07] VITALS: BMI 20.7
[2023-08-14 09:14] LABS: Hematocrit 38.4 % (37-47); Hemoglobin 12.4 g/dL (12.0-15.0); Mean Corp Hgb Conc 32.3 g/dL (32-36); Mean Corpuscular Hgb 29.5 pg (27.0-32.0); Mean Corpuscular Volume 91.4 fL (81-99); Mean Platelet Vol. 10.7 fl (6.2-12.0); Platelet Count 255 K/mm3 (150-450); RBC Distribution Width CV 14.8 % (11.6-14.6); RBC Distribution Width SD 49.6 fl (35.1-43.9); White Blood Count 5.8 K/mm3 (4.4-11.0)
[2023-08-14 09:25] LABS: Protein, Urine (Random) 245.7 mg/dL (<11.9); Protein:Creat Ratio 2118 mg/g CRE (0-200)
[2023-08-14 09:29] LABS: Albumin, Serum 3.4 g/dL (3.2-5.0); BUN 22 mg/dL (7-18); BUN/Creat Ratio 18.3 RATIO (10-20); Calcium,Total 7.9 mg/dL (8.5-10.1); Chloride 107 mmol/L (98-107); EST Glomerular Filtration Rate 46 mL/min (>60); Est Glom Filt Rate - Afr Amer 55 mL/min (>60); Glucose 96 mg/dL (74-106); Phosphorus 3.5 mg/dL (2.5-4.9); Potassium 4.6 mmol/L (3.5-5.1); Sodium Level 138 mmol/L (136-145)
[2023-08-14 09:35] LABS: PTHIN 334.9 pg/mL (18.4-80.1); Vitamin D,25 Hydroxy 54.8 ng/mL
[2023-08-16 13:07] LABS: Tacrolimus (FK506) 6.9 ng/mL (2.0-20.0)
== END 2023-09-12 18:00 | disposition home or self-care (01) ==
LOC: LAB 08:24
PROVIDERS: Family Provider Family Medicine; PCP Family Medicine
DX: E55.9 Vitamin D deficiency, unspecified (principal); Z94.0 Kidney transplant status
CPT/HCPCS: 36415; 80069; 80197; 82306; 82570; 83735; 83970; 84156; 85027

== ENCOUNTER 2023-09-17 13:30 | Outpatient (RCR) | payer MEDICARE, BC, SELFPAY ==
--- NOTE | 2023-09-10 10:54 | HP.PTEVAL_ITS ---
Patient's Visit Information Visit Information Visit Information: MU OCONNOR is a 82 year old F referred to Physical Therapy by Dr. Ha See MD with a diagnosis of L>R positional hand paresthesia/functional TOS. 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 thought it was CT and was told that it was the arthritis in her fingers. Now feels that now it is neck related. It is only when she is gripping something tight. She has neck pain and does ROM for her neck. The muscles in her neck are sore. She does not want any traction and does not feel she needs a lot of PT. Sitting here she does not have neck pain. She has neck pain if she sleeps wrong. She feels that posture is good and does not slump over. She does some stretching exercises and sit ups and walks. 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 Objective Objective: Gait: Normal gait pattern with some rounded shoulders. UE AROM: WFL B UE MMT: R shoulder flexion 8.9 and L 7.2 R shoulder ABD 10.6 and L 7 R shoulder ER 8.1 and L 7.4 R Bicep R 7 and L 7.3 Tension and soreness felt B mid scapular area, levator and upper and lower trap area.. light MT felt good to the pt. C-spine AROM: flexion 100%, Ext 10%, Rot B 75%, SB R 50% and L 25% Balance/Special Test Scores Quick DASH Score: 6.8175 Goals Goal 1:: I HEP Goal Time Frame: 2 Weeks Goal 2:: Sit with upright posture Goal Time Frame: 2 Weeks Rehabilitation Potential Rehabilitation Potential: Good Anticipated Interventions Patient/Client Instruction: Educate patient on: Condition and Plan of Care For the Purpose of:: To decrease pain, To increase ROM, To improve nutrient delivery to tissue, To improve muscle performance and motor function, To improve ability to perform ADL's, To improve health of tissue, To decrease soft tissue restriction and To increase flexibility/ROM Therapeutic Exercise to Include: Strength training, Postural training, Flexibilty training, Passive ROM, Active ROM and Scapular Strength/Stabilization For the Purpose of:: To decrease pain, To increase ROM, To improve muscle performance and motor function, To improve ability to perform ADL's, To increase tolerance to activity/condition/position, To improve health of tissue, To decrease soft tissue restriction and To increase flexibility/ROM Manual Therapy Techniques to Include: Passive ROM and Soft tissue mobilization For the Purpose of:: To improve nutrient delivery to tissue, To improve muscle performance and motor function, To improve ability to perform ADL's, To increase tolerance to activity/condition/position, To improve performance and independence with ADL's, To improve health of tissue, To decrease soft tissue restriction and To increase flexibility/ROM Text: Thank you for the opportunity to evaluate your patient. For Medicare and Medicare HMO plans, please review the plan of care and approve it. It will need to be FAXED BACK to us at [phone] for Medicare purposes. For Medicare only, by signing this I certify the plan of care. Please let me know if there are questions or concerns regarding this plan of care. Physician Signature: Date:
--- NOTE | 2023-09-17 14:07 | HP.PTDCSUM ---
Discharge Summary D/C summary: It has been my pleasure to treat MU OCONNOR referred by Dr. Ha See MD, with the diagnosis of L>R positional hand paresthesia/functional TOS for a total of 2 visit(s). Discharge Date: 09/17/23 Please see the following information for a summary of their discharge status. Subjective Subjective: Exercises are going well and she has been doing them daily and no Numbness has occurred since the summer. Overall Improvement % Improvement: 100 Objective Objective/Function: Tight along the mid and lower trap region B Goals Goal 1:: I HEP Goal 2:: Sit with upright posture Plan Plan: See the pt for 1 additional visit to go over HEP that was given today, additional scapular exercises, and some MT to the UT/mid trap and levator region with cont of HEP HEP: scapular retraction, laying supine over a towel along the spine, and orange t-band mid row D/C Information Discharge Comments: DC PT to HEP d/c sentence: If there are questions or concerns regarding this patient's physical therapy, please feel free to call me at [phone]. Thank you for the referral of this patient. Sincerely, Charissa Cedeno, MPT Balance/Gait/Functional tests Balance/Special Test Scores Quick DASH Score: 6.8175 Improvement % Improvement: 100
== END 2023-09-17 14:11 | disposition home or self-care (01) ==
LOC: PT 13:30
PROVIDERS: PCP Family Medicine; Visit Provider Family Medicine
DX: R20.2 Paresthesia of skin (principal)
CPT/HCPCS: 97140; 97161; 97530

== ENCOUNTER 2023-11-20 07:34 | Outpatient (RCR) | payer MEDICARE, BC, SELFPAY ==
[2023-09-13 03:54] VITALS: BMI 20.7
[2023-11-20 08:39] LABS: Hematocrit 34.4 % (37-47); Hemoglobin 11.1 g/dL (12.0-15.0); Mean Corp Hgb Conc 32.3 g/dL (32-36); Mean Corpuscular Hgb 29.4 pg (27.0-32.0); Mean Platelet Vol. 10.7 fl (6.2-12.0); Platelet Count 266 K/mm3 (150-450); RBC Distribution Width CV 14.6 % (11.6-14.6); RBC Distribution Width SD 49.1 fl (35.1-43.9); Red Blood Count 3.78 M/mm3 (4.2-5.4); White Blood Count 5.1 K/mm3 (4.4-11.0)
[2023-11-20 09:17] LABS: Vitamin D,25 Hydroxy 52.2 ng/mL
[2023-11-20 09:30] LABS: PTHIN 338.7 pg/mL (18.4-80.1)
[2023-11-20 09:35] LABS: Albumin, Serum 3.2 g/dL (3.2-5.0); BUN 25 mg/dL (7-18); BUN/Creat Ratio 22.7 RATIO (10-20); Calcium,Total 7.5 mg/dL (8.5-10.1); Chloride 107 mmol/L (98-107); EST Glomerular Filtration Rate 50 mL/min (>60); Est Glom Filt Rate - Afr Amer 61 mL/min (>60); Glucose 92 mg/dL (74-106); Magnesium 2.1 mg/dL (1.6-2.6); Potassium 4.1 mmol/L (3.5-5.1); Sodium Level 135 mmol/L (136-145)
[2023-11-20 10:19] LABS: Protein, Urine (Random) 156.7 mg/dL (<11.9); Protein:Creat Ratio 1920 mg/g CRE (0-200)
== END 2023-12-12 18:00 | disposition home or self-care (01) ==
LOC: LAB 07:34
PROVIDERS: Family Provider Family Medicine; PCP Family Medicine
DX: E55.9 Vitamin D deficiency, unspecified (principal); I10 Essential (primary) hypertension; Z94.0 Kidney transplant status; Z79.899 Other long term (current) drug therapy
CPT/HCPCS: 36415; 80069; 80197; 82306; 82570; 83735; 83970; 84156; 85027

== ENCOUNTER 2024-02-12 07:27 | Outpatient (RCR) | payer MEDICARE, BC, SELFPAY ==
[2023-12-12 23:55] VITALS: BMI 20.7
[2024-02-12 08:21] LABS: Hematocrit 36.1 % (37-47); Hemoglobin 11.7 g/dL (12.0-15.0); Mean Corp Hgb Conc 32.4 g/dL (32-36); Mean Corpuscular Hgb 29.3 pg (27.0-32.0); Mean Corpuscular Volume 90.3 fL (81-99); Mean Platelet Vol. 10.4 fl (6.2-12.0); Platelet Count 269 K/mm3 (150-450); RBC Distribution Width CV 14.6 % (11.6-14.6); RBC Distribution Width SD 48.1 fl (35.1-43.9); White Blood Count 7.1 K/mm3 (4.4-11.0)
[2024-02-12 08:38] LABS: Protein, Urine (Random) 136.6 mg/dL (<11.9); Protein:Creat Ratio 1120 mg/g CRE (0-200)
[2024-02-12 08:46] LABS: Albumin, Serum 3.4 g/dL (3.2-5.0); BUN 23 mg/dL (7-18); BUN/Creat Ratio 19.5 RATIO (10-20); Calcium,Total 7.6 mg/dL (8.5-10.1); Chloride 106 mmol/L (98-107); Creatinine, Serum 1.18 mg/dL (0.55-1.02); EST Glomerular Filtration Rate 47 mL/min (>60); Est Glom Filt Rate - Afr Amer 56 mL/min (>60); Glucose 96 mg/dL (74-106); Magnesium 1.9 mg/dL (1.6-2.6); Phosphorus 3.6 mg/dL (2.5-4.9); Potassium 4.2 mmol/L (3.5-5.1); Sodium Level 136 mmol/L (136-145)
[2024-02-12 08:47] LABS: PTHIN 265.9 pg/mL (18.4-80.1)
[2024-02-12 08:49] LABS: Vitamin D,25 Hydroxy 63.9 ng/mL
[2024-02-15 00:06] LABS: Tacrolimus (FK506) 7.2 ng/mL (2.0-20.0)
== END 2024-03-10 18:00 | disposition home or self-care (01) ==
LOC: LAB 07:27
PROVIDERS: Family Provider Family Medicine; PCP Family Medicine
DX: E55.9 Vitamin D deficiency, unspecified (principal); I10 Essential (primary) hypertension; Z94.0 Kidney transplant status; Z79.899 Other long term (current) drug therapy
CPT/HCPCS: 36415; 80069; 80197; 82306; 82570; 83735; 83970; 84156; 85027

== ENCOUNTER → 2024-04-21 | Outpatient (CLI) | payer MEDICARE, BC, SELFPAY ==
--- NOTE | 2024-04-21 10:53 | BD_ITS ---
STUDY: DUAL ENERGY X-RAY ABSORPTIOMETRY / DXA REASON FOR EXAM: Female, 83 years old. M810 TECHNIQUE: Bone Mineral Density (BMD) measurements of lumbar spine and bilateral hips were obtained. COMPARISON: Comparison is made with prior study dated April 19, 2022. FINDINGS: Lumbar Spine (L1-L4): g/cm2 (0.832) / T-score (-2.0) / Z-score (0.9) Findings are suggestive of osteopenia with a moderate fracture risk. Left Femur Total: g/cm2 (0.690) / T-score (-2.1) / Z-score (0.2) Left Femoral Neck: g/cm2 (0.602) / T-score (-2.2) / Z-score (0.2) Right Femur Total: g/cm2 (0.687) / T-score (-2.1) / Z-score (0.2) Right Femoral Neck: g/cm2 (0.603) / T-score (-2.2) / Z-score (0.2) The T-Scores on the most recent prior examination were: Lumbar Spine (L1-L4): There has been improvement of bone density since the previous examination. Left Femur Total: which represents an improvement of 0.3.. Right Femur Total: which represents an improvement of 1.6%. BD/Dexa Bone Density Study IMPRESSION: The patient is considered osteopenic as outlined below according to World [place] Organization (WHO) criteria with a high fracture risk. There has been improvement of bone density since the previous examination. Reference Information: The T-score is the number of standard deviations above or below the standard which is normal for young adults at their peak bone mineral density. The World Health Organization (WHO) interprets the T-scores as follows: Above -1 Normal bone density Between -1 and -2.5 Osteopenia Equal to / or below -2.5 Osteoporosis As a practical clinical guideline, osteopenia may be graded as follows: Mild -1 through -1.5 Moderate -1.6 through -2.0 Severe -2.1 through -2.4 The Z-score is the number of standard deviations above or below age-matched controls. A Z-score of less than -1.5 would be considered abnormal. References: 1. NIH Osteoporosis and Related Bone Diseases www osteo.org 2. International Society for Clinical Densitometry www iscd.org 3. National Osteoporosis Foundation www nof.org Electronically Signed: Ministerio Kidd MD at 14:56 EDT ,
--- NOTE | 2024-04-21 10:54 | BI_ITS ---
MAMMOGRAPHY - BILATERAL SCREENING REASON FOR EXAM: Female, 83 years old. Routine annual screening examination. PERTINENT HISTORY: Non-contributory. TECHNIQUE: Digital bilateral breast cecilia (3D mammographic acquisition) in the CC and MLO projections. 2-D mediolateral oblique (MLO) and craniocaudad (CC) views of both breasts were obtained. CAD: Full Field Digital Mammography with Computer Added Detection was performed. COMPARISON: Comparison is made with prior study dated April 19, 2022 and July 23, 2018. FINDINGS: Breast Composition: The breasts are heterogeneously dense, which may obscure small masses. Since prior examination, there has been an increase in the number of microcalcifications in the deep central lateral aspect of the left breast. Biopsy recommended. No other significant abnormalities are identified. BI/SCRN MAMM (CAD)W/CECILIA BILAT IMPRESSION: Progressive increase in number of microcalcifications in the central lateral aspect of the left breast as described. Biopsy recommended. ASSESSMENT CATEGORY: BIRADS Category 4: Suspicious - Biopsy Should Be Considered. A letter regarding these results will be sent to the patient by the facility within 30 days. Approximately 10% of breast cancers are not detected by mammography. A normal mammogram should not delay biopsy of a clinically suspicious abnormality. [id number] Electronically Signed: Ministerio Kidd MD at 12:39 EDT ,
== END | disposition home or self-care (01) ==
LOC: OPBD 10:51
PROVIDERS: PCP Family Medicine; Referring Provider Family Medicine; Visit Provider Family Medicine
DX: Z12.31 Encounter for screening mammogram for malignant neoplasm of breast (principal); M81.0 Age-related osteoporosis without current pathological fracture
CPT/HCPCS: 77063; 77067; 77080

== ENCOUNTER → 2024-05-08 | Outpatient (CLI) | payer MEDICARE, BC, SELFPAY ==
--- NOTE | 2024-05-08 | IMM_PTH ---
PATIENT: MU OCONNOR LOC: [facility] U#:[id number] AGE/SX: 83/F ROOM: RE05/08/[address]: Dr. Mandy Tse MD : 1940 BED: DIS: 05/08/2024 SPEC #: [id number] RECD: 05/11/24 11:15 STATUS: ROSI REQ #: [id number] ALIS: 05/08/24 00:[address]: Mandy Tse DEPT: IMMUNOHISTOCHEMISTRY RECD BY: Melecio Omalley ENTERED: 05/11/24 11:16 SP TYPE: IMMUNO OTHR DR: Dr. Ha See MD Tissues: Left breast, NOS Procedures: CALPONIN-1 (add) CK5-6 (add) CK8 (add) E-CAD (add) HER2 RAF (add) KI-67 (add) P53 (add) DC (add) P40 (add) MOC-31 (add) ER (initial) PHYSICIAN & [address] [address] SPECIMEN INFORMATION: Tissue Source: Left breast core tissue Clinical Info:Microcalcifications deep central lateral aspect of left breast Specimen Number: [id number] CPT code: 07595,[id number] METHODOLOGY: Deparaffinized sections of prefer/formalin-fixed tissue or PAP/DQ stained slides are incubated with monoclonal/polyclonal antibodies/oligonucleotide probes. Localization is made via biotin free immunoperoxidase method. Appropriate controls are performed and reacted as expected. Results on target cell population are indicated in the following table: RESULTS: ANTIBODY / CLONE RESULT Block 1 P53 (DO-7) positive, wild type Ki-67 (30-9) positive, 35% CK8 (49rysqL70) positive CK5-6 (D5 & 1684) negative Calponin-1 (QF109Z) negative P40 (BC28) negative E-Cad (ECH-6) positive MOC-31 (4561) positive MORPHOMETRIC ANALYSIS ER (clone 6F11) 0 % DC (clone 16/1E2) 0% Her-2Neu (clone CB11) 3+ The prognostic test for HER2 is performed on formalin-fixed paraffin embedded tissue. A 3+ (positive) staining pattern is defined as intense, homogeneous, complete, circumferential membranous staining in >10% of contiguous tumor cells. A similar weak (2+) staining pattern is interpreted as equivocal. RICHARD follow-up testing is recommended for all equivocal cases. Positivity/negativity for ER/DC is reported if > or < 1% of the tumor cells are immuno- reactive, respectively. The ASCO/CAP criteria is used for scoring. Reference: Journal of Clinical Oncology, 2013; 31:1776-5012 & 2010; 16:1657-0843. Ischemic time: Less than one hour. Duration of fixation: 32.5 Hrs; Sample Adequate: Yes. These assays have not been validated on decalcified tissues. Results should be interpreted with caution given the likelihood of false negativity on decalcified specimens or fixation greater than 72 hours. Alternative testing methods (FISH/dualISH for Her2; gene expression for ER) are recommended, if applicable. Please notify the laboratory if additional testing is required. These tests were developed and their performance characteristics determined by [facility]. They may not have been cleared or approved by the U.S. Food and Drug Administration. The FDA has determined that such clearance or approval is not necessary. The above immunohistochemical/dualISH markers are ordered and reviewed by the Pathologist. The test for HER 2 is performed on formalin-fixed paraffin embedded tissue using the CB11 mouse monoclonal antibody ([employer]). A 3+ staining pattern is interpreted as positive and is defined as a strong membranous staining involving the entire cell membrane in over 30% of invasive tumor cells. A similar weak staining pattern (2+) involving 10% of the tumor cells is interpreted as equivocal. HER 2 follow-up testing by FISH is recommended for all equivocal results. Reference: [place] Society of Clinical Oncology and the College of [place] [employer] (J. Clin. Oncol. 23: 118-145, 2007). Fixative Used: Formalin; Duration of Fixation: 32.5 Hrs; Sample Adequate: Yes INTERPRETATION: Left breast, core biopsy: Ductal carcinoma in situ, Grade 3/3. Negative for estrogen receptors (unfavorable prognostic indicator). Negative for progesterone receptors (unfavorable prognostic indicator). Positive for overexpression of SAD0wsi. AM/mr 05/12/2024
--- NOTE | 2024-05-08 11:05 | BRBX_PTH ---
PATIENT: MU OCONNOR LOC: [facility] U#:[id number] AGE/SX: 83/F ROOM: RE05/08/[address]: Dr. Mandy Tse MD : 1940 BED: DIS: 05/08/2024 SPEC #: [id number] RECD: 05/08/24 11:29 STATUS: ROSI KASANDRA #: [id number] ALIS: 05/08/24 11:[address]: Mandy Tse DEPT: SURGICAL PATHOLOGY RECD BY: Ann Bell ENTERED: 05/08/24 11:45 SP TYPE: BREAST BX OTHR DR: Dr. 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 Microcalcifications - Present. Other findings: Intraductal hyperplasia with and without atypia. Skin with no pathologic change. See comment. Etienne 05/11/2024 COMMENT Immunohistochemistry ([id number]) supports the above diagnosis. Case has been reviewed in consultation with Dr. Harvey who concurs with the above diagnosis. IDC:[id number] MICROSCOPIC DESCRIPTION Slides are reviewed. GROSS DESCRIPTION Received is one container labeled with the patient's name and not further designated. The specimen consists of multiple elongated fragments of chowdary-yellow fibroadipose tissue that in aggregate measure 5.0 x 2.0 x 0.2 cm. The specimen is totally submitted in two cassettes. Misael 05/08/2024 TC:0 CPT:53063
--- NOTE | 2024-05-08 11:31 | PCM.OPRPT ---
Report of Operation Date of Procedure: 05/08/24 Pre-Operative Diagnosis: Left breast microcalcifications Post-Operative Diagnosis: Same Surgery/Procedure Performed:: Stereotactic guided left breast biopsy Surgeon: Mandy Tse Type of Anesthesia: Local Specimen's removed: Left breast lateral/central microcalcifications Estimated Blood Loss (mL): < 10 cc Description of Procedure: Procedure: Left stereotactic core biopsy Indications: 83 year-old female with microcalcifications in the lateral/central of the left breast. Risk benefits were discussed the patient and she elected to proceed with stereotactic core biopsy with clip placement Description of procedure: Patient was brought into the mammography suite and laid prone on the stereotactic table. A timeout was completed verifying correct patient, procedure, site, specially, prior to beginning procedure. The left breast was prepped and draped in usual sterile fashion and using local anesthesia was obtained with 1% lidocaine with epi. Patient's left breast was positioned and placed into compression. Initial film showed calcifications are in the center of the compression paddle. 15? views were then taken. The calcifications were localized. The left breast was prepped draped in usual sterile fashion. An 8-gauge mammotome was set up according to the digital coordinates. The tract of the mammotome was anesthetized with local anesthesia and an incision was made with the 11 blade scalpel at the entry site. The mammotome was advanced to the prefire state. Pre-prior films were checked and verified. The mammotome was fired. Post fire films were also checked and verified. Biopsies were taken from 9:00 to 2:00. The specimen was x-rayed and a good representation of the calcifications were within the specimen. Mammotome clip was placed at the 12 o'clock position. The mammotome was removed from the breast. An additional films were taken which showed the clip was in place. Pressure was held for hemostasis. Once hemostasis was assured the wound was dressed with Steri-Strips and OpSite. Patient underwent mammography?showed that the clip is more in the central breast however mammotome was set up more superficially as the aperture had to be close down to 12 mm and still was very close to skin edge. The clip is further central than the actual biopsies were taken. The patient tolerated the procedure well and was discharged from the mammography suite good condition. Complications none
== END | disposition home or self-care (01) ==
LOC: BIRAD 10:22
PROVIDERS: PCP Family Medicine; Visit Provider Surgery
DX: R92.0 Mammographic microcalcification found on diagnostic imaging of breast (principal)
CPT/HCPCS: 19081; 81002; 88305; 88341; 88342; J7050

== ENCOUNTER 2024-05-14 07:37 | Outpatient (RCR) | payer MEDICARE, BC, SELFPAY ==
[2024-03-16 09:30] VITALS: BMI 20.7
[2024-05-14 08:07] LABS: Hematocrit 33.8 % (37-47); Hemoglobin 11.1 g/dL (12.0-15.0); Mean Corp Hgb Conc 32.8 g/dL (32-36); Mean Corpuscular Hgb 29.4 pg (27.0-32.0); Mean Corpuscular Volume 89.4 fL (81-99); Mean Platelet Vol. 10.3 fl (6.2-12.0); Platelet Count 245 K/mm3 (150-450); RBC Distribution Width CV 14.4 % (11.6-14.6); RBC Distribution Width SD 46.2 fl (35.1-43.9); Red Blood Count 3.78 M/mm3 (4.2-5.4); White Blood Count 5.5 K/mm3 (4.4-11.0)
[2024-05-14 08:50] LABS: Protein, Urine (Random) 167.6 mg/dL (<11.9)
[2024-05-14 09:05] LABS: Vitamin D,25 Hydroxy 68.7 ng/mL
[2024-05-14 09:06] LABS: Albumin, Serum 3.3 g/dL (3.2-5.0); BUN 26 mg/dL (7-18); BUN/Creat Ratio 20.6 RATIO (10-20); Calcium,Total 8.4 mg/dL (8.5-10.1); Chloride 107 mmol/L (98-107); Cholesterol 175 mg/dL (200); Creatinine, Serum 1.26 mg/dL (0.55-1.02); EST Glomerular Filtration Rate 43 mL/min (>60); Est Glom Filt Rate - Afr Amer 52 mL/min (>60); Free T3 2.4 pg/mL (2.18-3.98); Glucose 94 mg/dL (74-106); High Density Lipoprotein 68 mg/dL; Magnesium 1.7 mg/dL (1.6-2.6); Phosphorus 4.9 mg/dL (2.5-4.9); Sodium Level 137 mmol/L (136-145); T4 Free Direct 1.54 ng/dL (0.76-1.46); Thyroid Stim Hormone (TSH) 1.25 uIU/mL (0.358-3.74); Triglycerides 75 mg/dL; Very Low Density Lipoprotein 15 mg/dL (5-40)
[2024-05-14 17:23] LABS: T3 Total - Triiodothyronine 0.82 ng/mL (0.6-1.81)
[2024-05-17 11:07] LABS: Tacrolimus (FK506) 4.7 ng/mL (2.0-20.0)
== END 2024-05-14 18:00 | disposition home or self-care (01) ==
LOC: LAB 07:37
PROVIDERS: Family Provider Family Medicine; PCP Family Medicine
DX: E55.9 Vitamin D deficiency, unspecified (principal); I10 Essential (primary) hypertension; Z94.0 Kidney transplant status; Z79.899 Other long term (current) drug therapy; E03.9 Hypothyroidism, unspecified
CPT/HCPCS: 36415; 80061; 80069; 80197; 82306; 82570; 83735; 83970; 84156; 84439; 84443; 84480; 84481; 85027

== ENCOUNTER 2024-06-09 12:32 | Observation (INO) | payer MEDICARE, BC, SELFPAY ==
--- NOTE | 2024-06-03 08:36 | EKG12_ITS ---
Test Reason : PRE OP Blood Pressure : / mmHG Vent. Rate : 067 BPM Atrial Rate : 067 BPM P-R Int : 102 ms QRS Dur : 074 ms QT Int : 414 ms P-R-T Axes : 000 052 062 degrees QTc Int : 437 ms Sinus rhythm with short MO Otherwise normal ECG Confirmed by FRANCINE MCKEON, RUTH ([id number]), editorial director LEATHA BUSH ([id number]) on 06/05/2024 6:41:23 AM Referred By: Mandy Tse Confirmed By:MACARENA ESCAMILLA MD
[2024-06-03 09:42] LABS: Hematocrit 34.6 % (37-47); Mean Corp Hgb Conc 31.8 g/dL (32-36); Mean Corpuscular Hgb 28.9 pg (27.0-32.0); Mean Corpuscular Volume 91.1 fL (81-99); Mean Platelet Vol. 10.7 fl (6.2-12.0); Platelet Count 281 K/mm3 (150-450); RBC Distribution Width CV 14.5 % (11.6-14.6); RBC Distribution Width SD 47.8 fl (35.1-43.9); White Blood Count 5.9 K/mm3 (4.4-11.0)
[2024-06-03 10:14] LABS: Anion Gap 5 (5-15); BUN 21 mg/dL (7-18); BUN/Creat Ratio 17.8 RATIO (10-20); Chloride 103 mmol/L (98-107); Creatinine, Serum 1.18 mg/dL (0.55-1.02); EST Glomerular Filtration Rate 46 mL/min (>60); Est Glom Filt Rate - Afr Amer 56 mL/min (>60); Glucose 75 mg/dL (74-106); Potassium 4.5 mmol/L (3.5-5.1); Sodium Level 134 mmol/L (136-145); Thyroid Stim Hormone (TSH) 0.604 uIU/mL (0.358-3.740)
[2024-06-09] VITALS (16 sets, daily range): BP systolic 112–149; BP diastolic 59–83; PULSE 56–101; RESP 16–18; TEMP 36.6–37.3; O2SAT 16–99; BMI 20.9
--- NOTE | 2024-06-09 | IMM_PTH ---
PATIENT: MU OCONNOR LOC: [facility] U#:[id number] AGE/SX: 83/F ROOM: NC310 RE06/09/[address]: Dr. Mandy Tse MD : 1940 BED: 1 DIS: 06/10/2024 SPEC #: [id number] RECD: 06/12/24 11:48 STATUS: ROSI REQ #: [id number] ALIS: 06/09/24 00:[address]: Mandy Tse DEPT: IMMUNOHISTOCHEMISTRY RECD BY: Melecio Omalley ENTERED: 06/12/24 11:49 SP TYPE: IMMUNO OTHR DR: Dr. Ha See MD Tissues: A - Axillary lymph node, NOS Procedures: CK7 (add) Pankeratin (initial) PHYSICIAN & INSTITUTION [place] [phone] SPECIMEN INFORMATION: Tissue Source: A. Left axillary sentinel lymph node Clinical Info: Ductal carcinoma in situ of left breast Specimen Number: [id number] CPT code: 72943,73112 METHODOLOGY: Deparaffinized sections of prefer/formalin-fixed tissue or PAP/DQ stained slides are incubated with monoclonal/polyclonal antibodies/oligonucleotide probes. Localization is made via biotin free immunoperoxidase method. Appropriate controls are performed and reacted as expected. Results on target cell population are indicated in the following table: RESULTS: ANTIBODY / CLONE RESULT Block A 1 AE1-3 (AE1/AE3/PCK26) negative CK7 (OV-TL12/30) negative These tests were developed and their performance characteristics determined by [facility]. They may not have been cleared or approved by the U.S. Food and Drug Administration. The FDA has determined that such clearance or approval is not necessary. The above immunohistochemical/dualISH markers are ordered and reviewed by the Pathologist. INTERPRETATION: A. Left axillary sentinel lymph node, excision: One lymph node, negative for metastatic carcinoma. GABRIELA/ 06/16/2024
--- NOTE | 2024-06-09 08:35 | PRE.ANES_ITS ---
ASA Classification* ASA Classification ASA Classification: 3 Assessment & Plan Anesthesia* Anesthesia Assessment Anesthesia Assessment: Discussed sedation and/or anesthesia options, risks, benefits, and alternatives with patient/parents/legal guardian/POA. Questions invited. The patient/parents/legal guardian/POA seems to understand and agrees to proceed with anesthesia plan. Reviewed the physical assessment, medical history, allergy history and patient home medications list prior to surgery/procedure/anesthetic and documented any changes. Performed airway and anesthesia risk assessments. Anesthesia Type Anesthesia Type: General Anesthesia Focused Assessment* Airway Assessment Mouth opens: >3 cm Mallampati Score: II Focused Labs Anesthesia Preop lab: CBC WBC 5.9 K/mm3 (4.4-11.0) 06/03/24 08:46 RBC 3.80 M/mm3 (4.2-5.4) L 06/03/24 08:46 Hgb 11.0 g/dL (12.0-15.0) L 06/03/24 08:46 Hct 34.6 % (37-47) L 06/03/24 08:46 Plt Count 281 K/mm3 (150-450) 06/03/24 08:46 CHEMISTRY Potassium 4.5 mmol/L (3.5-5.1) 06/03/24 08:46 Sodium 134 mmol/L (136-145) L 06/03/24 08:46 Magnesium 1.7 mg/dL (1.6-2.6) 05/14/24 07:45 Phosphorus 4.9 mg/dL (2.5-4.9) 05/14/24 07:45 BUN 21 mg/dL (7-18) H 06/03/24 08:46 Creatinine 1.18 mg/dL (0.55-1.02) H 06/03/24 08:46 Glucose 75 mg/dL (74-106) 06/03/24 08:46 TSH 0.604 uIU/mL (0.358-3.740) 06/03/24 08:46 COAG Pre-Assessment Diagnosis/Proposed Procedure Planned Operative Procedure(s): LEFT MASTECTOMY WOTJ SENTIAL LYMPH NODE BIOPSY BLUE DYE RADIOTRACER POS AXILLARY DISSECTION Anesthesia History 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 When Was Last Pacemaker Check QUESTION #4 FULL TEXT: You/Your Family Experience fever (hyperthermia) with Anesthesia Last Oral Intake Last Oral intake: Last Oral Intake NPO since Meds taken in AM with sips of water? 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 Female Yes 05/29/24 13:17 HX of Motion Sickness No 05/29/24 13:17 HX of N/V After Surgery No 05/29/24 13:17 Non-Smoker Yes 05/29/24 13:17 Duration of Surgery greater Yes 05/29/24 13:17 than 60 minutes Number of Risk Factors 3 05/29/24 13:17 PONV Score Moderate Risk 05/29/24 13:17 Height & Weight Height & Weight: Anesthesia: Height & Weight Height 4 ft 11 in 05/15/24 12:25 Respiratory Assessment Respiratory Assessment - pad making machine operator: Respiratory Tract Infection Hx - pad making machine operator Hx Respiratory Tract Infection No 05/29/24 13:17 STOP Sleep Apnea STOP Sleep Apnea - pad making machine operator: STOP Sleep Apnea - pad making machine operator Hx Hypertension No 05/29/24 13:17 Hx Sleep Apnea No 05/29/24 13:17 CPAP BIPAP Do you snore loudly (louder No 05/29/24 13:17 than talking or can be heard Do you often feel tired/ No 05/29/24 13:17 fatigued/ sleepy during daytime? Has anyone observed you stop No 05/29/24 13:17 breathing during sleep? STOP Results Negative 05/29/24 13:17 QUESTION #5 FULL TEXT : Do you snore loudly (louder than talking or can be heard through closed doors)? 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 Specify any problems Hx of Preganancy in last 3 No 05/29/24 13:17 Months Nurse Filling Out Transfusion DSCHRIBER 05/29/24 13:17 & Questions: Date: 05/29/24 05/29/24 13:17 Time: 13:19 05/29/24 13:17 Patient unable to answer at this time (ie. 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: /Reproductive Hx- pad making machine operator Hx Now No 05/29/24 13:17 Gestational Age (in weeks): EDC: Hx Hx Para Hx Section SAB No 05/29/24 13:17 Active Medications Active Medications: Current Medications Generic Name Dose Route Start Last Admin Trade Name Freq PRN Reason Stop Dose Admin Cefazolin Sodium 2 gm/ Sodium 110 mls @ 150 mls/hr 06/09/24 11:00 Chloride IV 06/09/24 11:43 PREOP ONE Lactated Ringer's 1,000 mls @ 15 mls/hr 06/09/24 08:15 IV .Q48H ISIS PFSH Medical History Cancer Post-menopausal Alcohol use Thyroid disease Arthritis Low iron Anemia History of diverticulitis Non-smoker History of atrial fibrillation History of echocardiogram Cardiology follow-up encounter GERD (gastroesophageal reflux disease) Blepharochalasis Metatarsalgia of right foot Hiatal hernia Acute insomnia History of colon polyps Diverticulosis of colon Immunosuppression due to drug therapy Osteoporosis Renal transplant disorder Hypothyroidism Barretts esophagus Home Medications ?Medication ?Instructions ?Recorded ?Last Taken ?Type alprazolam 0.25 mg tablet 0.125 mg PO QHS PRN PRN Insomnia 01/17/19 Unknown History levothyroxine 75 mcg tablet 75 mcg PO DAILY 01/17/19 Unknown History tacrolimus 1 mg capsule, 2 mg PO BID 01/17/19 Unknown History immediate-release (Prograf) biotin 10,000 mcg capsule 10,000 mcg PO DAILY 06/11/23 Unknown History cholecalciferol (vitamin D3) 25 25 mcg PO DAILY 06/11/23 Unknown History mcg (1,000 unit) tablet cinacalcet 30 mg tablet (Sensipar) 30 mg PO DAILY 06/11/23 Unknown History denosumab 60 mg/mL subcutaneous 60 mg subcut [id number] 06/11/23 Unknown History syringe (Prolia) magnesium oxide 250 mg PO DAILY 06/11/23 Unknown History mycophenolate mofetil 250 mg 500 mg PO BID 07/10/23 Unknown History capsule famotidine 20 mg tablet 20 mg PO BID 05/29/24 Unknown History lisinopril 5 mg tablet 5 mg PO DAILY 05/29/24 Unknown History Allergy/AdvReac Type Severity Reaction Status Date / Time No Known Allergies Allergy Verified 05/29/24 13:13 Family History Father Non-Hodgkin lymphoma Brother History of esophageal cancer Brother Diabetes CAD (coronary artery disease) Obesity Cirrhosis from fatty liver Kidney disease Son Non-Hodgkin lymphoma Surgical History History of Asad fundoplication Hx of left cataract extraction Hx of right cataract extraction Hx of esophagogastroduodenoscopy Hx of colonoscopy Hx of hernia repair Hx of kidney transplant Hx of kidney transplant Arteriovenous fistula removed (2012) H/O parathyroidectomy (2012) Kidney transplanted (2010) Hx of tonsillectomy (1983) History of hysterectomy (1989) Social History Smoking Status: Never smoker alcohol intake: never substance use type: does not use Review of Systems (Anesthesia) ROS Narrative System reviewed and no additional complaints, except as documented.
--- NOTE | 2024-06-09 08:36 | NM_ITS ---
CLINICAL: Female, 83 years old. Left breast cancer. NUCLEAR MEDICINE SENTINEL NODE STUDY TECHNIQUE: After intradermal injection of 1.1 mCi of technetium 99M labeled filtered sulfur colloid, imaging of the chest and axillary regions accomplished. COMPARISON STUDIES : None available. FINDINGS: 1.1 mCi of technetium labeled sulfur colloid was injected in the periareolar alveolar region subcutaneously. NM/Lymph Node Injection Only IMPRESSION: [place] node procedure as described. Electronically Signed: Ministerio Kidd MD at 11:04 EDT ,
[2024-06-09] MEDS: Lactated Ringers 1,000 ML 15 ML IV (09:01)
--- NOTE | 2024-06-09 09:05 | PCM.HP.BLA ---
History and Physical Date of Admission: 06/09/24 Date of Service: 05/15/24 MR#: [id number] Acct: [id number] Name: MU OCONNOR Rep #: [id number] : 1940 Provider: Dr. Mandy Tse MD Age/Sex: 83/F Location: [facility] [place] Status: Signed Intake Vital Signs 04/29/2414:39 05/15/2412:25 Height 4 ft 11 in 4 ft 11 in Weight: 106 lb 106 lb BMI 21.4 21.4 BP 132/72 H 113/67 Blood Pressure Location Rt brachial Rt brachial Position Sitting Sitting Respiration 18 18 Pulse 75 64 Pulse Source Monitor Monitor Temp 97.2 F L 97.2 F L Temp Source Temporal Temporal Pulse Oximetry (%) 97 99 Oxygen Delivery Method room air room air Intake Visit Reasons: Discuss breast surgery Chief Complaint: discuss breast surgery Is patient in pain?: No Allergies No Known Allergies Allergy (Verified 05/15/24 12:29) Medications ?Medication ?Instructions ?Recorded ?Confirmed ?Type alprazolam 0.25 mg tablet 0.125 mg PO QHS PRN PRN Insomnia 01/17/19 05/15/24 History levothyroxine 75 mcg tablet 75 mcg PO DAILY 01/17/19 05/15/24 History tacrolimus 1 mg capsule, 2 mg PO BID 01/17/19 05/15/24 History immediate-release (Prograf) biotin 10,000 mcg capsule mcg PO DAILY 06/11/23 05/15/24 History cholecalciferol (vitamin D3) 25 25 mcg PO DAILY 06/11/23 05/15/24 History mcg (1,000 unit) tablet cinacalcet 30 mg tablet (Sensipar) 30 mg PO DAILY 06/11/23 05/15/24 History denosumab 60 mg/mL subcutaneous 60 mg subcut [id number] 06/11/23 05/15/24 History syringe (Prolia) magnesium oxide 250 mg PO DAILY 06/11/23 05/15/24 History famotidine 40 mg tablet 40 mg PO DAILY 07/10/23 05/15/24 History lisinopril 2.5 mg tablet 5 mg PO DAILY 07/10/23 05/15/24 History mycophenolate mofetil 250 mg 500 mg PO BID 07/10/23 05/15/24 History capsule Have you fallen in the past year?: No PFSH Medical History GERD (gastroesophageal reflux disease) Blepharochalasis Metatarsalgia of right foot Hiatal hernia Acute insomnia History of colon polyps Diverticulosis of colon Immunosuppression due to drug therapy Osteoporosis Renal transplant disorder Neck pain Cellulitis of toe, left Arthritis of big toe Hypothyroidism Barretts esophagus Surgical History Arteriovenous fistula removed (2012) H/O parathyroidectomy (2012) History of right nephrectomy (2008) Kidney transplanted (2010) Hx of tonsillectomy (1983) History of hysterectomy (1989) Family History Father Non-Hodgkin lymphoma deceasedBrother History of esophageal cancer deceasedBrother Diabetes CAD (coronary artery disease) Obesity Cirrhosis from fatty liver Kidney diseaseSon Non-Hodgkin lymphoma Social History Smoking Status: Never smoker alcohol intake: never substance use type: does not use HPI HPI HPI: 83 y/o F presents to d/w left breast stereotactic bx pathology and treatment. DCIS, ER/IN neg, Lwn0aqi 3+. ROS General General: No weight change, appetite, fatigue, colon cancer, breast cancer or weakness HEENT HEENT: No difficulty swallowing, eye injury, eye surgery, swollen glands or hoarseness Endo Endocrine: Yes thyroid disease; No diabetes mellitus, thyroid cancer, Hair loss, heat intolerance or cold intolerance Skin Skin: No rash or changing moles Breast Breast: Yes abnormal mammogram; No left breast lump, right breast lump, nipple discharge, breast pain or breast enlargement Musc Musculoskeletal: Yes arthritis; No back problems, rheumatoid arthritis, gout or joint pain Cardio Cardiovascular: No murmur, pacemaker, heart disease, atrial fibrillation, high blood pressure, heart attack, heart stent, palpitations, shortness of breat with exertion or chest pain Psych Psychiatric: No depression, anxiety or hearing voices Resp Respiratory: No shortness of breath, No sleep apnea, No cough, No COPD, No asthma, No emphysema and No wheezing Gastro Gastrointestinal: No abdominal pain, No nausea or vomiting, No diarrhea, No constipation, No blood in stool, No acid reflux, No hemorrhoids, No ulcers, No gallbladder problem and No black,tarry stools Emre Hematologic: No blood thinners, No blood disorders, No bleeding, No anemia and No blood clots Neuro Neurologic: No numbness, No tingling and No weakness Exam Const General: cooperative, healthy appearing and no acute distress HENMT Head: normal to inspection Chest Other: Left breast: biopsy site healing well. Resp Effort & Inspection: normal respiratory effort Cardio Rate: regular rate GI Inspection: non-distended Palpation: soft Skin General: no rashes or lesions noted Neuro General: patient oriented x3 Extrem General: no clubbing, cyanosis or edema Psych Affect: normal affect Assessment and Plan Assessment and Plan (1) Ductal carcinoma in situ (DCIS) of left breast: Status: Acute Plan Discussed with pt that currently biopsy only shows DCIS and not invasive; however taking more tissue may show invasive. due to breast size and calcifications on mammogram and PMH of kidney transplant on immunosuppression would recommend mastectomy and SNL bx. I have given the patient options for initial surgical treatment. Options are the following: lumpectomy followed by radiation therapy vs. mastectomy vs. mastectomy followed by immediate reconstruction. I have described the procedures to the patient. I have described the advantages and disadvantages of the options, but I have told the patient that among the options, the survival rate for breast cancer is the same. I have told the patient that with all the surgeries that a sentinel lymph node biopsy is required. I have described the procedure of sentinel lymph node biopsy to the patient. I have told the patient that if the biopsy is positive for metastatic disease, then a full axillary lymph node dissection is required. I have told the patient that adjuvant chemotherapy will be required should the lymph nodes reveal metastatic disease. Also, a full lymph node dissection will increase the risk for lymphedema, especially if there are 4 or more lymph nodes positive for metastatic disease and radiation to the axilla is also required. I have told the patient the risks of surgery, including but not limited to: infection, bleeding, scar tissue, seroma and persistent seroma, lymph leak, injury to any blood vessels, injury to any nerves (particularly the long thoracic, the thoracodorsal, and the second intercostal brachial and the resultant sequelae), lymphedema, cosmetic deformity, dysesthesias, wound infections, further surgery (especially if margins are not clear), complications of anesthesia, etc. the patient understands. Pt is agreeable with a left mastectomy, SNL bx, nuclear tracer/blue dye, poss. ALND I have answered all the patient?s questions at this point to her satisfaction and she has no further questions. Coding Level of Care Code Off vis,est,level 4 Diagnoses Ductal carcinoma in situ (DCIS) of left breast D05.12 Clinical Quality Measures Falls Risk Screening/Assistive Devices Have you fallen in the past year?: No 05/16/242110 <Electronically signed by Mandy Tse MD> Date Mandy Tse MD
[2024-06-09] MEDS: Cefazolin 2 GM in 0.9% Normal Saline (100mL Bag) 100 ML IV (10:52)
[2024-06-09] MEDS: 0.9% Normal Saline (Pres. free 10 ML Vial (11:05)
[2024-06-09] MEDS: Isosulfan Blue 1% 5 ML Vial (11:05)
--- NOTE | 2024-06-09 11:50 | AXNB_PTH ---
PATIENT: MU OCONNOR LOC: [facility] U#:[id number] AGE/SX: 83/F ROOM: NJ310 RE06/09/[address]: Dr. Mandy Tse MD : 1940 BED: 1 DIS: 06/10/2024 SPEC #: [id number] RECD: 06/09/24 12:07 STATUS: ROSI ACUNAJessica #: [id number] ALIS: 06/09/24 11:[address]: Mandy Tse DEPT: SURGICAL PATHOLOGY RECD BY: Melecio Omalley ENTERED: 06/09/24 12:08 SP TYPE: AX NODE BX OTHR DR: Dr. Ha See MD Tissues: A - Axillary lymph node, NOS B - Left breast, NOS Procedures: Frozen Section (charge) Surgery Specimen Level IV Surgery Specimen Level V HEADER OPERATION: Left mastectomy with sentinel lymph node biopsy, blue dye and radiotracer PRE-OP DIAGNOSIS: Ductal carcinoma in situ of left breast TISSUE SUBMITTED: A- Left axillary sentinel lymph node, B- Left breast- long stitch-lateral, short stitch- superior FROZEN SECTION DIAGNOSIS A. Left axillary sentinel lymph node, biopsy: One out of one lymph node, negative for carcinoma. . 06/09/2024 MICROSCOPIC DIAGNOSIS A. Left axillary sentinel lymph node, biopsy: One lymph node, negative for metastatic carcinoma. See comment. B. Left breast, mastectomy: Ductal carcinoma in situ. See cancer summary in the comment section. [facility] 06/12/2024 COMMENT The lymph node is negative for metastatic carcinoma on multiple H & E levels and immunohistochemical stains for cytokeratins ([id number]). B. Cancer summary: Specimen: Procedure: Total mastectomy Specimen laterality: Left Tumor: Tumor site: Inferior portion, deep central lateral aspect as per clinical information. Histologic type: Ductal carcinoma in situ Size (extent of DCIS): 1.5 x 0.5cm (measures microscopically), tumor is present adjacent to the previous biopsy site Number of blocks with DCIS: 1 Number of blocks examined: 12 Architectural pattern: Comedo and cribriform Nuclear Grade: Grade 3 (high) Necrosis: Present, central (expansive comedo necrosis) Microcalcifications: Present in DCIS and non-neoplastic tissue Margins: The tumor is 3.0cm from closest inferior margin Regional lymph node status: Number of lymph node examined: 1 Number of sentinel lymph node examined: 1 Number of lymph node with macrometasteses, micrometasteses and isolated tumor cells:0 Distal metastases: Not applicable Additional findings: - Focal intraductal hyperplasia with atypia - Changes consistent with previous biopsy site. Ancillary studies: Previously performed on [id number] and [id number] ER- negative (0) WI- negative (0) Her2 pooja- positive (3) Ki67- positive, 35% Clinical information: Please make reference to previous specimen [id number] left breast, stereotactic core biopsy with diagnosis of ductal carcinoma in situ. Pathology staging: pTis (DCIS) pN0(sn) pMx Case has been reviewed in consultation with Dr. Ying who concurs with the above diagnosis. IDC:AM MICROSCOPIC DESCRIPTION Slides are reviewed. GROSS DESCRIPTION A. Received fresh for frozen section consultation labeled with the patient's name is a specimen designated Left axillary sentinel lymph node. The specimen consists of two irregular fragments of fatty tissue ranging in size from 2.0 to 2.2cm. The fragments are bisected and reveal a single chowdary nodule measuring 1.5cm in greatest dimension. The nodule is bisected and submitted in its entirety for frozen section consultation in one block. The remainder of the specimen is submitted in its entirety in block #2. B. Received in fixative is one container labeled with the patient's name and designated Left breast and superior medial skin. The specimen consists of a mastectomy including skin, nipple, and breast tissue measuring 15.5 x 15.0 x 2.0cm. The centrally located nipple and areola is grossly unremarkable. The mastectomy weighs 229gm and is differentially inked as follows: superior-blue, inferior-green, posterior- black. Serial sections of the breast reveal a firm chowdary, white spiculated nodule measuring 5.0mm present in the inferior portion of the breast and it is 3.0 cm from the closest inferior margin. No other mass lesions are identified. Remainder of the breast parenchyma is chowdary-yellow and interrupted focally by white fibrous streaks. Also present in the specimen container is an ellipse of unremarkable chowdary skin measuring 11.0 x 2.0 x 1.0cm. This fragment is inked differently as follows: medial-red, lateral- orange, superior half- blue, inferior half- green. Serial sections of this fragment do not reveal mass lesions. Wine Bottle Inspector sections are submitted in twelve cassettes- 1- nipple and areola, 2- perpendicular superior, posterior, inferior margins from mastectomy, 3- medial margin from mastectomy, 4- lateral from mastectomy, 5- lesions from mastectomy, 6-8- medicare sales representative sections of uninvolved breast parenchyma from mastectomy, 9-12- perpendicular margins from separate fragment of skin and tissue in container separate fragment of skin in container. 06/10/2024 TC:0 NOTE: Sections are submitted after additional fixation. CPT:85946,52409 x2
--- NOTE | 2024-06-09 12:25 | OP.PCM_ITS ---
Report of Operation Date of Procedure: 06/09/24 Pre-Operative Diagnosis: Left breast DCIS Post-Operative Diagnosis: Same Surgery/Procedure Performed:: Left mastectomy with sentinel lymph node biopsy with nuclear tracer and blue dye Surgeon: Mandy Tse horse stud worker: Veronika Albert horse stud worker: Oly Stephen Type of Anesthesia: General/Supplemental Anesthesiologist: Charlie Gustafson Special Medications: Ancef 2 g IV x 1 Specimen's removed: 1. [place] lymph node left, 2. Left mastectomy, 3. New medial superior skin margin Drains: JPs x 2 Estimated Blood Loss (mL): 15 cc Description of Procedure: Synoptic Portion: Element Response Options Operation performed with curative intent. Yes Tracer(s) used to identify sentinel nodes in the upfront surgery (non- neoadjuvant) setting (select all that apply). Dye; Radioactive tracer Tracer(s) used to identify sentinel nodes in the neoadjuvant setting (select all that apply). N/A. All nodes (colored or non-colored) present at the end of a dye-filled lymphatic channel were removed. Yes All significantly radioactive nodes were removed. Yes All palpably suspicious nodes were removed. N/A. Biopsy-proven positive nodes marked with clips prior to chemotherapy were identified and removed. N/A. In AC the breast tissue was injected with TC-9 9 sulfur colloid 90 minutes later the patient was taken to the operating room and general anesthesia was induced. 5 cc of Lymphazurin 1% blue dye was injected in the 4 quadrants periareolar along with 10 cc of normal saline. This was massaged gently for 5 minutes. The left breast and axilla were prepped and draped in usual sterile fashion. A timeout was completed verifying correct patient, procedure, site, positioning, special equipment prior to beginning procedure. Handheld gamma probe was used to identify the location of the hottest spot in the axilla. Prior to the incision, the counts were 5. The incision was made in the blue and hot node was identified. The probe was placed in contact with the node in the 10 count was 400. The bed of the node measured 4 counts. No additional blue or hot or palpable nodes were detected. Skin incision was made that encompassed the nipple areolar complex and the previous biopsy scar in past and generally oblique direction across the breast. Flaps are raised in the avascular plane between the prescription he continues tissues in the breast tissue from the clavicle superiorly, the sternum medially, the anterior rectus sheath inferiorly, and posterolateral border of the pectoralis major muscle laterally. Hemostasis was achieved in the flaps. Next, the breast tissue and underlying pectoralis fascia were excised from the pectoralis major muscle, progressing from medial to laterally. At the lateral border of the pectoralis major muscle, the breast tissue was swung laterally and the lateral pedicle identified with the breast tissue gave way to the fat of the axilla. The lateral pedicle was incised and the specimen removed and oriented for pathology. The wound was irrigated and hemostasis was achieved. Closed suction drains were brought into the operating field through a separate stab incision and sutured to skin with 3-0 nylon suture. Additional medial superior skin margin to remove excess skin from the medial part of the incision with 15 blade scalpel and electrocautery. The incision was closed with interrupted 2-0 Vicryl to the simultaneously followed by a subcuticular layer of 4-0 Monocryl and Steri-Strips. The wound was dressed The patient tolerated procedure well and sent to postanesthesia care unit in stable condition. Complications none
--- NOTE | 2024-06-09 13:24 | PCM.POST.ANE ---
Anesthesia: Postop Eval I Current Vital Signs Temperature: 97.9 F Pulse Rate: 70 Blood Pressure: 125/83 Respiratory Rate: 18 Pulse Ox: 98 Assessment Airway patent: Yes Spontaneous unlabored respirations: Yes nausea: No Vomiting: No Anesthesia Complication: No Fluid Hydration Crystalloid volume administer (ml): 1,300 Total IV fluid infused: 1,300 Progress Note Anesthesia document: Postop Eval 1 completed: Yes
--- NOTE | 2024-06-09 14:22 | POSTOPAN2_ITS ---
Anesthesia Postop Eval I Sum Postop Eval Completion status Anesthesia document: Postop Eval 1 completed: Yes Anesthesia Postop Eval I Summary Anesthesia Postop Eval I Summary: Anesthesia Postop Eval I: Assessment Summary Airway patent Yes 06/09/24 13:24 [email or web address] Spontaneous unlabored Yes 06/09/24 13:24 [email or web address] respirations Mental status nausea No 06/09/24 13:24 [email or web address] Vomiting No 06/09/24 13:24 [email or web address] Anesthesia Postop Eval I: Fluid Summary Crystalloid volume administer 1,300 06/09/24 13:24 [email or web address] (ml) Colloids volume administered ( ml) Blood Product volume administered (ml) Total IV fluid infused 1,300 06/09/24 13:24 [email or web address] Anesthesia Postop Eval I: Summary Notes Anesthesia Complication No 06/09/24 13:24 [email or web address] Anesthesia Complication Comment: Post-operative progress note Anesthesia: Postop Eval II Evaluation Mental status: Awake and Calm Pain Level: 3 nausea: No Vomiting: No Complications Anesthesia Complication: No
--- NOTE | 2024-06-09 14:22 | PCM.POSTANE2 ---
Anesthesia Postop Eval I Sum Postop Eval Completion status Anesthesia document: Postop Eval 1 completed: Yes Anesthesia Postop Eval I Summary Anesthesia Postop Eval I Summary: Anesthesia Postop Eval I: Assessment Summary Airway patent Yes 06/09/24 13:24 STORAGE BATTERY INSPECTOR AND [email or web address] Spontaneous unlabored Yes 06/09/24 13:24 STORAGE BATTERY INSPECTOR AND [email or web address] respirations Mental status nausea No 06/09/24 13:24 STORAGE BATTERY INSPECTOR AND [email or web address] Vomiting No 06/09/24 13:24 STORAGE BATTERY INSPECTOR AND [email or web address] Anesthesia Postop Eval I: Fluid Summary Crystalloid volume administer 1,300 06/09/24 13:24 STORAGE BATTERY INSPECTOR AND [email or web address] (ml) Colloids volume administered ( ml) Blood Product volume administered (ml) Total IV fluid infused 1,300 06/09/24 13:24 STORAGE BATTERY INSPECTOR AND [email or web address].[email or web address] Anesthesia Postop Eval I: Summary Notes Anesthesia Complication No 06/09/24 13:24 STORAGE BATTERY INSPECTOR AND [email or web address].[email or web address] Anesthesia Complication Comment: Post-operative progress note Anesthesia: Postop Eval II Evaluation Mental status: Awake and Calm Pain Level: 3 nausea: No Vomiting: No Complications Anesthesia Complication: No
[2024-06-09] MEDS: Lactated Ringers 1,000 ML 100 ML IV (16:57)
[2024-06-09] MEDS: Acetaminophen 325 MG Tablet 650 MG PO (18:44)
[2024-06-09] MEDS: oxyCODONE 5 MG Tablet PO (18:45)
[2024-06-09] MEDS: Pantoprazole Sodium 40 MG in 0.9% Normal Saline (100mL MB+) 100 ML 330 MG IV (20:19)
[2024-06-09] MEDS: Mycophenolate Mofetil 250 MG Capsule 500 MG PO (20:21)
[2024-06-09] MEDS: Tacrolimus Anhydrous 1 MG Capsule 2 MG PO (20:22)
[2024-06-10 01:51] VITALS: BP 117/57; PULSE 55; RESP 16; TEMP 36.5; O2SAT 98
[2024-06-10] MEDS: Acetaminophen 325 MG Tablet 650 MG PO ×3 (01:54→13:53)
[2024-06-10] MEDS: Lactated Ringers 1,000 ML 100 ML IV (02:14)
[2024-06-10 06:07] VITALS: BP 109/57; PULSE 57; RESP 16; TEMP 36.5; O2SAT 97
[2024-06-10] MEDS: Levothyroxine 75 MCG Tablet PO (06:10)
[2024-06-10] MEDS: 0.9% Saline Lock 10 ML Syringe IV ×2 (06:17→08:09)
[2024-06-10 07:04] LABS: Absolute Lymphocyte Count 1.13 X10^3/uL (0.83-4.51); Absolute Neutrophil Count 3.8 X10^3/uL (2.0-7.7); Basophil# 0.03 X10^3/uL; Basophil% 0.5 % (0-1); Eosinophil# 0.15 X10^3/uL; Eosinophils% 2.6 % (0-5); Hemoglobin 9.5 g/dL (12.0-15.0); Lymphocyte # 1.13 X10^3/ul (0.83-4.51); Lymphocyte % 19.8 % (19-41); Mean Corp Hgb Conc 31.7 g/dL (32-36); Mean Corpuscular Hgb 29.1 pg (27.0-32.0); Mean Platelet Vol. 10.8 fl (6.2-12.0); Monocyte# 0.61 X10^3/uL; Monocyte% 10.7 % (0-10); NRBC Flagged by Analyzer 0 % (0-5); Neutrophil # 3.75 X10^3/uL (2.7-7.7); Neutrophil % 65.9 % (47-70); Platelet Count 206 K/mm3 (150-450); RBC Distribution Width CV 14.8 % (11.6-14.6); RBC Distribution Width SD 50.2 fl (35.1-43.9); Red Blood Count 3.26 M/mm3 (4.2-5.4); White Blood Count 5.7 K/mm3 (4.4-11.0)
[2024-06-10 07:57] VITALS: BP 118/56; PULSE 59; RESP 18; TEMP 36.6; O2SAT 97
[2024-06-10] MEDS: Tacrolimus Anhydrous 1 MG Capsule 2 MG PO (08:04)
[2024-06-10] MEDS: Mycophenolate Mofetil 250 MG Capsule 500 MG PO (08:04)
[2024-06-10] MEDS: Cinacalcet HCl 30 MG Tablet PO (08:05)
[2024-06-10] MEDS: Lisinopril 5 MG Tablet PO (08:05)
[2024-06-10] MEDS: Pantoprazole Sodium 40 MG in 0.9% Normal Saline (100mL MB+) 100 ML 330 MG IV (08:08)
--- NOTE | 2024-06-10 08:46 | PCM.PN.SRG ---
Subjective Subjective Patient is evaluated resting comfortably in bed. She denies any discomfort/pain at the incision site. Objective Data Objective Data Vital Signs: Vital Signs Temp Pulse Resp BP Pulse Ox O2 Del Method 97.8 F 59 L 18 118/56 L 97 Room Air 06/10/24 07:57 06/10/24 07:57 06/10/24 07:57 06/10/24 07:57 06/10/24 07:57 06/10/24 07:57 Oxygen Delivery Method Room Air Weight: 103 lb 9.876 oz Body Mass Index (BMI) 20.9 Intake & Output: Intake and Output for Last 24 Hours 06/08/24 06/09/24 06/10/24 23:59 23:59 23:59 Intake Total 1339 / 1839 2428.33 / 2428.33 Output Total 49 / 74 240 / 240 Balance 1290 / 1765 2188.33 / 2188.33 Lab / Micro Data 06/10/24 06:32 06/03/24 08:46 Labs: Laboratory Results - last 24 hr 06/10/24 06:32: WBC 5.7, RBC 3.26 L, Hgb 9.5 L, Hct 30.0 L, MCV 92.0, MCH 29.1, MCHC 31.7 L, RDW Std Deviation 50.2 H, RDW Coeff of Noah 14.8 H, Plt Count 206, MPV 10.8, Immature Gran % (Auto) 0.500, Neut % (Auto) 65.9, Lymph % (Auto) 19.8, [place] % (Auto) 10.7 H, Eos % (Auto) 2.6, Baso % (Auto) 0.5, Absolute Neuts (auto) 3.8, Absolute Lymphs (auto) 1.13, Nucleated RBC % 0 Radiography Diagnostic Testing: Radiology Impression [place] Node 06/09/24 08:36 IMPRESSION: [place] node procedure as described. Electronically Signed: Ministerio Kidd MD at 11:04 EDT , Physical Exam Chest Chest Narrative: Left chest- incision c/d/i. No erythema or infection noted. JESSE drains x 2 were intact. Bulking dressing was removed. Telfa left in place. Drains were stripped. Assessment & Plan Assessment/Plan (1) Ductal carcinoma in situ (DCIS) of left breast: PLAN: I am following this patient in conjunction with Dr. Tse. Patient has recovered very well She is ready for discharge Charges/Coding Visit Charges Inpatient E&M: 43867 Subs Hosp L1 (Post-op)
--- NOTE | 2024-06-10 09:20 | DCINST_ITS ---
Discharge Instructions Diet Discharge Diet: Light diet - advance as tolerated Activity Discharge Activity: May Not Drive (avoid driving for 3-5 days) and May Not Shower Lifting Restrictions: No lifting greater than 20 pounds x 2 wks; No strenuous exercise for 4 wks Dressing / Incision Call your doctor if your incision/area has: Continuous Slow Oozing, Sudden Increased Bleeding, Increased Pain/ Swelling, Increased Redness, Foul Smelling Discharge and Swelling at the incision site Call your doctor if you observe: Fever of 101 or Higher Suture Line Care: Avoid Pulling/Pushing and Avoid Pinching/Bending Change Dressing in: 1 day Additional Dressing/Incision Instructions:: May clean drain sites with peroxide on a Qtip daily Follow Up Care Please Follow Up With: Mandy Tse MD When: Please follow-up with Dr. Tse on Saturday; 06/16 at 3:00pm for drain removal. Please bring your JESSE drain output log. Our office number is [phone], option #4, if any questions or concerns. Test Results: Test results from this visit will be discussed in further detail at your follow- up appointment, if applicable. Discharge Plan Admission Admit Date/Time: 06/09/24 12:32 Primary Reason for Your Visit: Left breast cancer Attending Provider: Mandy Tse Primary Care Provider: Ha See Instructions Additional Instructions / Restrictions: Breast Mastectomy Diet ? Start light with soups and soft bland foods. You may advance diet as tolerated. Activity ? You may drive in 3-5 days but not while taking narcotic pain medication. ? I encourage walking. You may go up steps, one at a time. ? Do not swim or use hot tubs until your drains have bene removed, and your surgeon has evaluated your progress. Lifting ? You may lift up to 10 pounds until your surgeon advises on unrestricted activity. ? Please limit over the head reaching and straining while your drains are in place. ? Once drains are removed, you may inquire about when range of motion exercises would be appropriate. Dressings/Incision ? Do not shower, or tub bathe until your surgeon has given you permission. For hygiene, sponge bathe only. ? If you have drains in place, then you may change the dressing daily and cleanse the drain sites with a Q-tip and peroxide followed by dry gauze and tape. The incision itself will normally have steri-strips or surgical glue and should not require cleansing. Medications ? Anesthesia used during surgery and pain medications may cause constipation. I recommend initiating on the day of surgery a fiber supplement like, Metamucil, Citrucel, FiberCon, Benefiber, or a generic form of these medications. 1 heaping tablespoon in water daily. You may continue to utilize any bowel regimen or oral laxatives that you routinely take. ? As long as you are not intolerant to Tylenol, acetaminophen, ibuprofen, Motrin, Advil, Aleve, or similar medications, I would recommend transitioning to these [id number]-[id number] medicines as soon as possible instead of continued use of narcotic pain medication. Follow up ? You should call [facility] soon after surgery, at [phone] option 2 to make a follow up appointment for 7-10 days after your surgery?This may need to be sooner if you have a drain in place?please discuss with your physician. Exercises following breast surgery The following stretching exercises should be done two (2) to three (3) repetitions, three times daily to ensure you regain the mobility of the shoulder you had prior to surgery. Begin these stretching exercises the day after surgery. Arm Lifts This is the most important exercise for you to do. While standing (or sitting on the edge of a chair), lift both arms directly over your head. Your goal is to have your elbows ?touching? your ears. Some find it helpful to do this exercise while looking in a mirror. Arm Swings While standing, swing both arms back and forth from the shoulder (like the pendulum of a clock). Attempt to keep the elbows stiff. Increase the distance of the swing each time. Wall Climbing Stand facing a wall with feet close to the wall. Climb the fingertips of both hands up the wall then creep them down again. Attempt to go a little higher each time. If you will be having post-operative radiation therapy following your breast surgery, you will be instructed additional way to do this exercise. It is important to keep the rest of your body active. Deep breaths and coughing are necessary after surgery. You may use stairs and ride in a car. Most people may drive seven days after surgery. Shaving, etc. Be careful when shaving under the arm or putting on deodorant. It is a good idea to look in the mirror while doing either, this is to prevent irritating the incision. Blood draws, injections: It is preferred that you have blood drawn or have an injection in the operative arm. THIS IS A PRECAUTIONARY MEASURE. If it is necessary for you to have blood drawn using this arm, mention that you have had breast surgery and have had lymph nodes removed. Two weeks after surgery you will notice some changes: You may feel discomfort in the armpit and/or down the arm. This is the beginning of the inner tissue healing and at this time, discomfort is normal. Increase you exercise routine and take mild pain medication (Tylenol or acetaminophen). Warm showers may also provide discomfort. At this time, you may notice the incision feels thick and lumpy, this is normal. The scar tissue can be softened by massaging the area with a mild lotion containing vitamin e or pure lanolin. These products may be purchased over the counter at any pharmacy or grocery store. After several weeks, the scar tissue will soften. Stay aware form perfum ed lotions, as the alcohol in them may irritate the skin. If you are having post-operative radiation, do not apply anything to your skin without firs consulting your radiation oncologist. Swelling If you should develop any swelling (collection of fluid) in your arm, hand, near the incision or under your arm, please contact your surgeon. Sometimes, elevat ing the entire arm on pillows (higher than the level of your heart) will reduce some of the swelling. Do not sleep on your surgical side. This places the area in a dependent position and increases swelling of the breast and chest wall. A small amount of swelling of the breast, chest wall and armpit is normal for the first month after surgery. Going home with a drain: Patients who have undergone breast surgery are sometimes discharged with an external drainage device. The care, emptying and recording of the drainage will be demonstrated to you during your teaching session with the nurse prior to discharge. If you develop a fever over 101 degrees F, increased drainage (more than 240 cc/8 oz) over a 24 hours period or increased pain not controlled by pain medication, please call your doctors office. The amount of fluid that is drained over a 24-hour period will gradually decrease. The color may change from mckeon re, to red orange, to straw color. When you return for your post-operative visit four to seven days after surgery it is usually time to remove the drain. Discharge Orders/Prescriptions Prescriptions: New acetaminophen 325 mg Tablet 650 mg PO Q6H PRN PRN (Reason: Pain Score 1-10) Qty: 0 0RF oxycodone 5 mg Tablet 5 mg PO Q4H PRN PRN (Reason: Pain Score 1-10) 2 Days Qty: 6 0RF Continued cinacalcet [Sensipar] 30 mg tablet 30 mg PO DAILY magnesium oxide 250 mg magnesium tablet 250 mg PO DAILY cholecalciferol (vitamin D3) 25 mcg (1,000 unit) tablet 25 mcg PO DAILY Prolia 60 mg/mL syringe 60 mg subcut [id number] biotin 10,000 mcg capsule 10,000 mcg PO DAILY levothyroxine 75 MCG tablet 75 mcg PO DAILY Patient Comments: TAKE 1 TABLET BY MOUTH EVERY DAY alprazolam 0.25 MG tablet 0.125 mg PO QHS PRN PRN (Reason: Insomnia) Patient Comments: TAKE 1/2 TO 1 TABLET AT BEDTIME NEEDED FOR SLEEP tacrolimus [Prograf] 1 MG capsule 2 mg PO BID Patient Comments: TAKE 2 CAPSULE TWICE DAILY mycophenolate mofetil 250 mg capsule 500 mg PO BID Patient Comments: TAKE 2 BY MOUTH TWICE A DAY famotidine 20 mg tablet 20 mg PO BID lisinopril 5 mg tablet 5 mg PO DAILY Referrals / Follow Up: Ha See MD [Primary Care Provider] - Mandy Tse MD [Med Staff - Active Staff] - 06/16/24 3:00 pm Disposition Disposition (needs filled in before D/C Order can be placed): Home, Self Care
--- NOTE | 2024-06-10 10:08 | CASEMGMT ---
RUPA CM into pt room, pt lying in bed in no distress. Pt reports she lives alone in a single story home. She reports being I in all ADL/IADL and cares for her own lawn. Pt has been instructed on drain care and states she is comfortable caring for them at home. Pt does not use AD. Pt denies any homegoing needs at this time. 6 cl=20.
[2024-06-10 13:57] VITALS: BP 128/61; PULSE 60; RESP 16; TEMP 36.7; O2SAT 96
== END 2024-06-10 14:02 | disposition home or self-care (01) ==
LOC: SDC 16:34 → MS3 17:16
PROVIDERS: Anesthesiology; Admitting Provider Surgery; PCP Family Medicine; Referring Provider Surgery; Visit Provider Surgery
PROC: (CPT 19301; principal; 2024-06-09 10:45)
DX: D05.12 Intraductal carcinoma in situ of left breast (principal); K21.9 Gastro-esophageal reflux disease without esophagitis; Z79.899 Other long term (current) drug therapy; E03.9 Hypothyroidism, unspecified; Z94.0 Kidney transplant status; Z79.890 Hormone replacement therapy
CPT/HCPCS: 19303; 38525; 36415; 38792; 80048; 84443; 85025; 85027; 88305; 88307; 88331; 88341; 88342; 93005; 94668; 96361; 96365; 96366; 99221; A4648; A9541; J7120; A4216; G0378; J2405; J3490; Q9968

== ENCOUNTER 2024-06-21 05:35 | Inpatient (IN) | payer MEDICARE, BC, SELFPAY ==
[2024-06-21 05:36] VITALS: BP 144/74; PULSE 69; RESP 16; TEMP 36.6; O2SAT 98; BMI 21.8
--- NOTE | 2024-06-21 05:47 | CT_ITS ---
STUDY: CT ABDOMEN AND PELVIS WITH CONTRAST - URINARY TRACT REASON FOR EXAM: Female, 83 years old. mid-abd pain, n/v RADIATION DOSAGE (If Supplied By Facility): CTDIvol = ( 7.60 ) mGy, DLP = ( 422.42 ) mGycm TECHNIQUE: IV 50mL Isovue-370 was administered. Transaxial images were obtained from the dome of the diaphragm to the symphysis pubis in the arterial, nephrographic and excretory phases. Multiplanar coronal and sagittal images were reformatted. The protocol utilizes one or more of the following dose reduction techniques: automated exposure control, adjustment of mA and/or kV according to patient size,and/or use of iterative reconstruction technique. COMPARISON: CT Abdomen/PelvisApr 2019 8:03am FINDINGS: There are mitral valvular calcifications. Normal liver. Normal gallbladder and extrahepatic biliary system. Normal spleen. Normal pancreas. Normal bilateral adrenal glands. There is severe cortical atrophy of the right kidney, consistent with chronic medical renal disease. There is severe cortical atrophy of the left kidney, consistent with chronic medical renal disease. Bilateral renal cysts are identified. Some of the cysts demonstrate circumferential calcification. Right lower quadrant renal transplant identified. Bilateral renal calculi are identified in the [place] but no hydronephrosis of the [place] or right lower quadrant transplant. There is diffuse atherosclerotic calcification of the abdominal aorta, without a demonstrated aneurysm. Normal inferior vena cava. Normal retroperitoneum. Normal urinary bladder. Uterus appears to be surgically absent. There is a small (1.5 cm) left adnexal cyst. There are dilated loops of the small intestine. There is dilatation of the ascending and transverse colon with a non-distended descending colon consistent suggesting obstruction of the descending colon near the splenic flexure. There are multiple colonic diverticula consistent with diverticulosis. The appendix is visualized and appears normal. There are operative changes of the anterior abdominal wall but no demonstrated abdominal wall hernia. Grade 2 spondylolisthesis of L5-S1 due to bilateral L5 spondylolysis. Severe degenerative changes of the lumbosacral spine. CT/Abdomen/Pelvis W IV Cont ONLY IMPRESSION: There are dilated loops of the small intestine. There is dilatation of the ascending and transverse colon with a non-distended descending colon consistent suggesting obstruction of the descending colon near the splenic flexure. Electronically Signed: Skylar Brady MD at 8:06 EDT ,
--- NOTE | 2024-06-21 05:48 | EDS_ITS ---
HPI <Dr. Brent Dacosta MD - Last Filed: 06/21/24 08:06> HPI - GI History of Present Illness Chief Complaint: Abd Pain Informant: patient Abdominal Pain/Flank Pain Onset: Yesterday Context: Gradual Onset Timing: Intermittent Quality: Aching Location: - (periumbilical) Current Severity: Moderate Maximum Severity: Moderate Worsened by: Nothing Relieved by: Nothing Nausea/Vomiting/Emesis GI Symptom: Positive for Nausea and Vomiting Quality: Positive for Nonbilious; Negative for Blood streaks, Coffee ground or Hematemesis Episodes: 1 Diarrhea/Melena/Hematochezia GI Symptom: Negative for Diarrhea, Melena or Hematochezia Narrative Narrative: 83-year-old female presenting with periumbilical abdominal pain that started yesterday, it eased off and then got worse last night. She states last time she had this discomfort it was a bowel obstruction. She states she has been nauseated, she vomited once when she gagged herself with her finger. It was nonbloody and nonbilious. She had several normal bowel movements yesterday. She has a right-sided kidney transplant, pain is not associated with this and her urine output has been unremarkable. 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 Denies having any issues with it. [facility] <Dr. Brent Dacosta MD - Last Filed: 06/21/24 08:06> [facility] Medical History Ductal carcinoma in situ (DCIS) of left breast Cancer Post-menopausal Alcohol use Thyroid disease Arthritis Low iron Anemia History of diverticulitis Non-smoker History of atrial fibrillation History of echocardiogram Cardiology follow-up encounter GERD (gastroesophageal reflux disease) Blepharochalasis Metatarsalgia of right foot Hiatal hernia Acute insomnia History of colon polyps Diverticulosis of colon Immunosuppression due to drug therapy Osteoporosis Renal transplant disorder Hypothyroidism Barretts esophagus Home Medications ?Medication ?Instructions ?Recorded ?Last Taken ?Type alprazolam 0.25 mg tablet 0.125 mg PO QHS PRN PRN Insomnia 01/17/19 06/08/24 History levothyroxine 75 mcg tablet 75 mcg PO DAILY 01/17/19 06/09/24 History tacrolimus 1 mg capsule, 2 mg PO BID 01/17/19 06/09/24 History immediate-release (Prograf) biotin 10,000 mcg capsule 10,000 mcg PO DAILY 06/11/23 06/08/24 History cholecalciferol (vitamin D3) 25 25 mcg PO DAILY 06/11/23 06/08/24 History mcg (1,000 unit) tablet cinacalcet 30 mg tablet (Sensipar) 30 mg PO DAILY 06/11/23 06/08/24 History denosumab 60 mg/mL subcutaneous 60 mg subcut [id number] 06/11/23 Unknown History syringe (Prolia) magnesium oxide 250 mg PO DAILY 06/11/23 06/08/24 History mycophenolate mofetil 250 mg 500 mg PO BID 07/10/23 06/09/24 History capsule famotidine 20 mg tablet 20 mg PO BID 05/29/24 06/09/24 History lisinopril 5 mg tablet 5 mg PO DAILY 05/29/24 06/09/24 History Allergy/AdvReac Type Severity Reaction Status Date / Time No Known Allergies Allergy Verified 06/21/24 05:36 Family History Father Non-Hodgkin lymphoma Brother History of esophageal cancer Brother Diabetes CAD (coronary artery disease) Obesity Cirrhosis from fatty liver Kidney disease Son Non-Hodgkin lymphoma Surgical History S/P left mastectomy History of Asad fundoplication Hx of left cataract extraction Hx of right cataract extraction Hx of esophagogastroduodenoscopy Hx of colonoscopy Hx of hernia repair Hx of kidney transplant Hx of kidney transplant Arteriovenous fistula removed (2012) H/O parathyroidectomy (2012) Kidney transplanted (2010) Hx of tonsillectomy (1983) History of hysterectomy (1989) Social History Smoking Status: Never smoker alcohol intake: never substance use type: does not use ROS <Dr. Brnet Dacosta MD - Last Filed: 06/21/24 08:06> ROS ED Constitutional Constitutional ED: Denies chills or fever(s) Eyes Eyes: Denies change in vision or diplopia ENT ENT ED: Denies rhinorrhea or sore throat Cardiovascular Cardiovascular: Denies chest pain or palpitations Respiratory/Chest Respiratory/Chest: Denies cough or dyspnea Gastrointestinal Gastrointestinal: Reports abdominal pain, nausea and vomiting; Denies constip ation, diarrhea or melena Genitourinary Genitourinary ED: Denies dysuria or hematuria Musculoskeletal Musculoskeletal: Denies back pain or neck pain Integumentary Denies abscess or rash Neurologic Neurologic: Denies headache(s), paresthesias or weakness Psychiatric Psychiatric: Denies anxiety or suicidal thoughts EXAM <Dr. Brent Dacosta MD - Last Filed: 06/21/24 08:06> Physical Exam Const Vital Signs: 06/21/24 05:36 06/21/24 06:56 Temperature 97.9 F Temperature Source Oral Pulse Rate 69 71 Respiratory Rate 16 18 Blood Pressure 144/74 H 136/80 H Blood Pressure Mean 97 98 Pulse Ox 98 95 Oxygen Delivery Method Room Air Room Air Positive well nourished and well developed Constitutional Narrative: Patient is a well-appearing in no distress General Appearance ED: well developed and NAD HEENT Reports moist mucous membranes normocephalic and atraumatic Eyes PERRL and EOMs intact bilaterally Neck full ROM and supple Resp normal respiratory effort and clear to auscultation bilaterally Cardio regular rate and regular rhythm GI non-distended GI Narrative: Mildly tender periumbilical only, no guarding or rebound, benign exam. Auscultation: normoactive bowel sounds Palpation: soft Back/Spine no CVA tenderness General Back: other FROM Extremity normal to inspection General Extremety ED: Negative for edema, pulses abnormal or tenderness General Extremity: Negative for edema or pulses abnormal Neuro oriented x3, CN's II-XII intact bilaterally and no sensory deficits noted Sensorium / Orientation: awake and alert Motor Exam: strength 5/5 throughout Skin no rashes or lesions noted Skin Narrative: Left chest surgical site benign, small amount of serosanguineous drainage in JESSE drain. <Dr. Ha Joy DO - Last Filed: 06/21/24 08:32> Physical Exam Const Vital Signs: 06/21/24 05:36 06/21/24 06:56 Temperature 97.9 F Temperature Source Oral Pulse Rate 69 71 Respiratory Rate 16 18 Blood Pressure 144/74 H 136/80 H Blood Pressure Mean 97 98 Pulse Ox 98 95 Oxygen Delivery Method Room Air Room Air MDM <Dr. Brent Dacosta MD - Last Filed: 06/21/24 08:06> MDM MDM Narrative Medical decision making narrative: Given patient's concern about a possible bowel obstruction, labs and a CT with IV contrast were ordered, in addition to giving the patient morphine, Zofran, and IV fluids. Patient doing much better after these medications and fluids. I reviewed the CT images, my interpretation it appears to show small bowel obstruction. Awaiting radiology result. Discussed with ED physician at shift change for final disposition based on these results. Lab Data Attestation: I reviewed the patient's lab results. Labs: Laboratory Results - last 24 hr 06/21/24 05:50 WBC 12.0 H RBC 4.22 Hgb 12.3 Hct 37.2 MCV 88.2 MCH 29.1 MCHC 33.1 RDW Std Deviation 46.2 H RDW Coeff of Noah 14.5 Plt Count 310 MPV 10.5 Immature Gran % (Auto) 0.400 Neut % (Auto) 87.4 H Lymph % (Auto) 4.0 L [place] % (Auto) 7.6 Eos % (Auto) 0.3 Baso % (Auto) 0.3 Absolute Neuts (auto) 10.5 H Absolute Lymphs (auto) 0.48 L Nucleated RBC % 0 Sodium 132 L Potassium 4.2 Chloride 97 L Carbon Dioxide 26.0 Anion Gap 9 BUN 35 H Creatinine 1.57 H Estim Creat Clear Calc 19.50 Est GFR (MDRD) Af Amer 40 L Est GFR (MDRD) Non-Af 33 L BUN/Creatinine Ratio 22.3 H Glucose 140 H Calcium 9.9 Total Bilirubin 0.70 AST 10 L ALT 13 Alkaline Phosphatase 65 Total Protein 7.1 Albumin 3.7 Globulin 3.4 Albumin/Globulin Ratio 1.1 Lipase 53 Radiography Diagnostic Testing: Clinical Impression(s) from Imaging Studies Abdomen/Pelvis CT 06/21/24 05:47 IMPRESSION: There are dilated loops of the small intestine. There is dilatation of the ascending and transverse colon with a non-distended descending colon consistent suggesting obstruction of the descending colon near the splenic flexure. Electronically Signed: Skylar Brady MD at 8:06 EDT , <Dr. Ha Joy, DO - Last Filed: 06/21/24 08:32> [facility] Lab Data Labs: Laboratory Results - last 24 hr 06/21/24 05:50 WBC 12.0 H RBC 4.22 Hgb 12.3 Hct 37.2 MCV 88.2 MCH 29.1 MCHC 33.1 RDW Std Deviation 46.2 H RDW Coeff of Noah 14.5 Plt Count 310 MPV 10.5 Immature Gran % (Auto) 0.400 Neut % (Auto) 87.4 H Lymph % (Auto) 4.0 L [place] % (Auto) 7.6 Eos % (Auto) 0.3 Baso % (Auto) 0.3 Absolute Neuts (auto) 10.5 H Absolute Lymphs (auto) 0.48 L Nucleated RBC % 0 Sodium 132 L Potassium 4.2 Chloride 97 L Carbon Dioxide 26.0 Anion Gap 9 BUN 35 H Creatinine 1.57 H Estim Creat Clear Calc 19.50 Est GFR (MDRD) Af Amer 40 L Est GFR (MDRD) Non-Af 33 L BUN/Creatinine Ratio 22.3 H Glucose 140 H Calcium 9.9 Total Bilirubin 0.70 AST 10 L ALT 13 Alkaline Phosphatase 65 Total Protein 7.1 Albumin 3.7 Globulin 3.4 Albumin/Globulin Ratio 1.1 Lipase 53 Radiography Diagnostic Testing: Clinical Impression(s) from Imaging Studies Abdomen/Pelvis CT 06/21/24 05:47 IMPRESSION: There are dilated loops of the small intestine. There is dilatation of the ascending and transverse colon with a non-distended descending colon consistent suggesting obstruction of the descending colon near the splenic flexure. Electronically Signed: Skylar Brady MD at 8:06 EDT , Management Discussion w/another healthcare provider: Turning Machine Operator Treatment and Re-Evaluation :: Care of the patient was turned over to me pending CT scan results. CT scan of the abdomen and pelvis showed dilated loops of the small intestine and dilation of the ascending and transverse colon. There is no distention of the descending colon suggesting obstruction near the splenic flexure. This was interpreted by the radiologist and was also independently reviewed by myself. Case was discussed with Dr. Neal. He was in to evaluate the patient. He will admit the patient to his service. He did not want an NG tube placed at this time. Patient understood and was agreeable with the plan. All questions were answered. Discharge Plan Dx/Rx/DC Orders Clinical Impression: SBO (small bowel obstruction), Kidney transplanted, Obstruction of descending colon Disposition Disposition: Acute Care [facility]
[2024-06-21] MEDS: 0.9% Normal Saline (1000mL) 1,000 ML 125 ML IV (05:53)
[2024-06-21] MEDS: Morphine 2 MG/ML Syringe IV (05:53)
[2024-06-21] MEDS: Ondansetron 4 MG/2 ML Vial IV (05:53)
[2024-06-21 05:58] LABS: Absolute Lymphocyte Count 0.48 X10^3/uL (0.83-4.51); Absolute Neutrophil Count 10.5 X10^3/uL (2.0-7.7); Basophil# 0.03 X10^3/uL; Basophil% 0.3 % (0-1); Eosinophil# 0.03 X10^3/uL; Eosinophils% 0.3 % (0-5); Hematocrit 37.2 % (37-47); Hemoglobin 12.3 g/dL (12.0-15.0); Lymphocyte # 0.48 X10^3/ul (0.83-4.51); Mean Corp Hgb Conc 33.1 g/dL (32-36); Mean Corpuscular Hgb 29.1 pg (27.0-32.0); Mean Corpuscular Volume 88.2 fL (81-99); Mean Platelet Vol. 10.5 fl (6.2-12.0); Monocyte# 0.91 X10^3/uL; Monocyte% 7.6 % (0-10); NRBC Flagged by Analyzer 0 % (0-5); Neutrophil % 87.4 % (47-70); POSITIVE DIFFERENTIAL YES; Platelet Count 310 K/mm3 (150-450); RBC Distribution Width CV 14.5 % (11.6-14.6); RBC Distribution Width SD 46.2 fl (35.1-43.9); Red Blood Count 4.22 M/mm3 (4.2-5.4)
[2024-06-21 06:17] LABS: ALB/GLOB Ratio 1.1 RATIO (0.9-2.4); AST(SGOT) 10 U/L (15-37); Alanine Aminotransfer ALT/SGPT 13 U/L (13-56); Albumin, Serum 3.7 g/dL (3.2-5.0); Alkaline Phosphatase 65 U/L (45-117); Anion Gap 9 (5-15); BUN 35 mg/dL (7-18); BUN/Creat Ratio 22.3 RATIO (10-20); Calcium,Total 9.9 mg/dL (8.5-10.1); Chloride 97 mmol/L (98-107); Creatinine, Serum 1.57 mg/dL (0.55-1.02); EST Glomerular Filtration Rate 33 mL/min (>60); Est Glom Filt Rate - Afr Amer 40 mL/min (>60); Globulin 3.4 g/dL (2.2-4.2); Glucose 140 mg/dL (74-106); Lipase 53 U/L (13-75); Potassium 4.2 mmol/L (3.5-5.1); Protein, Total 7.1 g/dL (6.4-8.2); Sodium Level 132 mmol/L (136-145)
[2024-06-21 06:56] VITALS: BP 136/80; PULSE 71; RESP 18; O2SAT 95
--- NOTE | 2024-06-21 08:32 | HP.PCM.SX_ITS ---
HPI - General HPI Narrative MU OCONNOR, is a 83 F who presents with abdominal pain. The patient reports that she ate a larger meal at [employer] yesterday morning and then yesterday afternoon she started experiencing abdominal pain. She was able to eat dinner but overnight she was feeling nauseated and made herself throw up with her finger. The pain returned so she came to the emergency room. She reports that she had 2 large bowel movements that were 9 diarrhea yesterday. She also reports she is passing flatus. She denies nausea or abdominal pain currently. [facility] Medical History Ductal carcinoma in situ (DCIS) of left breast Cancer Post-menopausal Alcohol use Thyroid disease Arthritis Low iron Anemia History of diverticulitis Non-smoker History of atrial fibrillation History of echocardiogram Cardiology follow-up encounter GERD (gastroesophageal reflux disease) Blepharochalasis Metatarsalgia of right foot Hiatal hernia Acute insomnia History of colon polyps Diverticulosis of colon Immunosuppression due to drug therapy Osteoporosis Renal transplant disorder Hypothyroidism Barretts esophagus Home Medications ?Medication ?Instructions ?Recorded ?Last Taken ?Type alprazolam 0.25 mg tablet 0.125 mg PO QHS PRN PRN Insomnia 01/17/19 06/08/24 History levothyroxine 75 mcg tablet 75 mcg PO DAILY 01/17/19 06/09/24 History tacrolimus 1 mg capsule, 2 mg PO BID 01/17/19 06/09/24 History immediate-release (Prograf) biotin 10,000 mcg capsule 10,000 mcg PO DAILY 06/11/23 06/08/24 History cholecalciferol (vitamin D3) 25 25 mcg PO DAILY 06/11/23 06/08/24 History mcg (1,000 unit) tablet cinacalcet 30 mg tablet (Sensipar) 30 mg PO DAILY 06/11/23 06/08/24 History denosumab 60 mg/mL subcutaneous 60 mg subcut [id number] 06/11/23 Unknown History syringe (Prolia) magnesium oxide 250 mg PO DAILY 06/11/23 06/08/24 History mycophenolate mofetil 250 mg 500 mg PO BID 07/10/23 06/09/24 History capsule famotidine 20 mg tablet 20 mg PO BID 05/29/24 06/09/24 History lisinopril 5 mg tablet 5 mg PO DAILY 05/29/24 06/09/24 History Allergy/AdvReac Type Severity Reaction Status Date / Time No Known Allergies Allergy Verified 06/21/24 05:36 Family History Father Non-Hodgkin lymphoma Brother History of esophageal cancer Brother Diabetes CAD (coronary artery disease) Obesity Cirrhosis from fatty liver Kidney disease Son Non-Hodgkin lymphoma Surgical History S/P left mastectomy History of Asad fundoplication Hx of left cataract extraction Hx of right cataract extraction Hx of esophagogastroduodenoscopy Hx of colonoscopy Hx of hernia repair Hx of kidney transplant Hx of kidney transplant Arteriovenous fistula removed (2012) H/O parathyroidectomy (2012) Kidney transplanted (2010) Hx of tonsillectomy (1983) History of hysterectomy (1989) Social History Smoking Status: Never smoker alcohol intake: never substance use type: does not use Vital Signs Vital Signs Vital Signs: 06/21/24 05:36 06/21/24 06:56 Temperature 97.9 F Temperature Source Oral Pulse Rate 69 71 Respiratory Rate 16 18 Blood Pressure 144/74 H 136/80 H Blood Pressure Mean 97 98 Pulse Ox 98 95 Oxygen Delivery Method Room Air Room Air Weight Weight: 108 lb 3.951 oz Body Mass Index (BMI) 21.8 Physical Exam Const oriented x3 and no apparent distress Resp normal respiratory effort Cardio regular rate and regular rhythm GI soft to palpation and non-tender Inspection: abdominal distention Results Lab / Micro Data 06/21/24 05:50 06/21/24 05:50 Labs: Laboratory Results - last 24 hr 06/21/24 05:50: WBC 12.0 H, RBC 4.22, Hgb 12.3, Hct 37.2, MCV 88.2, MCH 29.1, MCHC 33.1, RDW Std Deviation 46.2 H, RDW Coeff of Noah 14.5, Plt Count 310, MPV 10.5, Immature Gran % (Auto) 0.400, Neut % (Auto) 87.4 H, Lymph % (Auto) 4.0 L, [place] % (Auto) 7.6, Eos % (Auto) 0.3, Baso % (Auto) 0.3, Absolute Neuts (auto) 10.5 H, Absolute Lymphs (auto) 0.48 L, Nucleated RBC % 0, Sodium 132 L, Potassium 4.2, Chloride 97 L, Carbon Dioxide 26.0, Anion Gap 9, BUN 35 H, C reatinine 1.57 H, Estim Creat Clear Calc 19.50, Est GFR (MDRD) Af Amer 40 L, Est GFR (MDRD) Non-Af 33 L, BUN/Creatinine Ratio 22.3 H, Glucose 140 H, Calcium 9.9, Total Bilirubin 0.70, AST 10 L, ALT 13, Alkaline Phosphatase 65, Total Protein 7.1, Albumin 3.7, Globulin 3.4, Albumin/Globulin Ratio 1.1, Lipase 53 Imaging Radiology Impression Abdomen/Pelvis CT 06/21/24 05:47 IMPRESSION: There are dilated loops of the small intestine. There is dilatation of the ascending and transverse colon with a non-distended descending colon consistent suggesting obstruction of the descending colon near the splenic flexure. Electronically Signed: Skylar Brady MD at 8:06 EDT , Assessment & Plan Assessment/Plan (1) Obstruction of descending colon: PLAN: The patient reports her last colonoscopy was 5 years ago. She is currently on immunosuppression due to kidney transplant. The patient had a small bowel obstruction a few years ago that resolved spontaneously. Patient is currently not nauseated so I will not place an NG as the patient has had a Asad in the past. I will order some enemas to try to clear her from the bottom to attempt colonoscopy this week to evaluate if she does not start having more bowel function. It may be that the grapes she ate caused a food bolus that is slowly obstructing the colon and slowly moving its way forward. Continue observation for now as the patient does not have a surgical abdomen. I will resume her oral medications and order fleets enemas and I will also contact Dr. Tse in the morning as the patient recently had mastectomy by her. Felix Neal MD Pager: [facility] [address] [place] [address], [address] [place] [address] Office:
--- NOTE | 2024-06-21 08:33 | ED.RN ---
Per Dr Val torres, water given to the patient so that she can take her home meds.
[2024-06-21 08:51] VITALS: BP 155/88; PULSE 79; RESP 15; TEMP 36.2; O2SAT 97
[2024-06-21 09:09] VITALS: BMI 22.2
[2024-06-21 09:12] VITALS: BP 147/85; PULSE 85; RESP 17; TEMP 36.4; O2SAT 98
[2024-06-21] MEDS: 0.9% Normal Saline (1000mL) 1,000 ML 100 ML IV ×2 (10:13→20:52)
[2024-06-21] MEDS: Fleet Enema 133 ML RC ×2 (11:03→12:50)
[2024-06-21] MEDS: Lisinopril 5 MG Tablet PO (11:34)
[2024-06-21] MEDS: Famotidine 20 MG Tablet PO (11:34)
[2024-06-21] MEDS: Magnesium Chloride 64 MG Delay Rel.Tablet 128 MG PO (11:34)
[2024-06-21 15:06] VITALS: BP 120/63; PULSE 72; RESP 16; TEMP 36.6; O2SAT 94
[2024-06-21] MEDS: Tacrolimus Anhydrous 1 MG Capsule 2 MG PO (20:04)
[2024-06-21] MEDS: Mycophenolate Mofetil 250 MG Capsule 500 MG PO (20:04)
[2024-06-21 21:00] VITALS: BP 129/72; PULSE 68; RESP 18; TEMP 36.7; O2SAT 95
[2024-06-22 03:00] VITALS: BP 128/78; PULSE 66; RESP 18; TEMP 36.7; O2SAT 94
[2024-06-22] MEDS: 0.9% Normal Saline (1000mL) 1,000 ML 100 ML IV ×2 (05:44→16:55)
[2024-06-22] MEDS: Levothyroxine 75 MCG Tablet PO (05:44)
--- NOTE | 2024-06-22 06:40 | RAD_ITS ---
INDICATION: colon obstruction EXAMINATION/TECHNIQUE: X-RAY - Supine AP view. COMPARISON: CT from 06/21/2024. FINDINGS: BOWEL GAS PATTERN: Unremarkable. Moderate stool retention. CALCIFICATIONS: No abnormal calcifications identified. LOWER CHEST: Visualized lung bases are unremarkable. BONES AND SOFT TISSUES: No acute abnormality. RAD/Abdomen Single View (Portable) IMPRESSION: No evidence of an acute intra-abdominal abnormality. Electronically Signed: Ahsan Xie DO at 8:02 EDT ,
[2024-06-22 07:07] LABS: Absolute Lymphocyte Count 0.79 X10^3/uL (0.83-4.51); Absolute Neutrophil Count 3.3 X10^3/uL (2.0-7.7); Basophil# 0.02 X10^3/uL; Basophil% 0.4 % (0-1); Eosinophil# 0.13 X10^3/uL; Eosinophils% 2.7 % (0-5); Hematocrit 28.8 % (37-47); Lymphocyte # 0.79 X10^3/ul (0.83-4.51); Lymphocyte % 16.7 % (19-41); Mean Corpuscular Volume 92.9 fL (81-99); Mean Platelet Vol. 10.7 fl (6.2-12.0); Monocyte# 0.44 X10^3/uL; Monocyte% 9.3 % (0-10); NRBC Flagged by Analyzer 0 % (0-5); Neutrophil # 3.34 X10^3/uL (2.7-7.7); Neutrophil % 70.5 % (47-70); Platelet Count 223 K/mm3 (150-450); RBC Distribution Width SD 50.7 fl (35.1-43.9); White Blood Count 4.7 K/mm3 (4.4-11.0)
[2024-06-22 07:25] LABS: Mean Corp Hgb Conc 31.3 g/dL (32-36)
[2024-06-22 07:34] LABS: Anion Gap 12 (5-15); BUN 22 mg/dL (7-18); BUN/Creat Ratio 22.7 RATIO (10-20); Calcium,Total 6.9 mg/dL (8.5-10.1); Chloride 113 mmol/L (98-107); Creatinine, Serum 0.97 mg/dL (0.55-1.02); EST Glomerular Filtration Rate 58 mL/min (>60); Est Glom Filt Rate - Afr Amer 71 mL/min (>60); Estimated Creatinine Clearance 31.56 ml/min; Glucose 73 mg/dL (74-106); Potassium 3.8 mmol/L (3.5-5.1); Sodium Level 142 mmol/L (136-145)
[2024-06-22] MEDS: Mycophenolate Mofetil 250 MG Capsule 500 MG PO ×2 (07:37→20:06)
[2024-06-22] MEDS: Tacrolimus Anhydrous 1 MG Capsule 2 MG PO ×2 (07:37→20:05)
[2024-06-22] MEDS: Famotidine 20 MG Tablet PO (07:40)
--- NOTE | 2024-06-22 08:58 | PN.SURG_ITS ---
Subjective Subjective Patient reports she is not having any nausea this morning. She says that she did not have any other bowel movements besides the one with the enema. She is passing flatus. Objective Data Objective Data Vital Signs: Vital Signs Temp Pulse Resp BP Pulse Ox O2 Del Method 98.1 F 66 18 128/78 H 94 Room Air 06/22/24 03:00 06/22/24 03:00 06/22/24 03:00 06/22/24 03:00 06/22/24 03:00 06/22/24 03:00 Oxygen Delivery Method Room Air Weight: 110 lb Body Mass Index (BMI) 22.2 Intake & Output: Intake and Output for Last 24 Hours 06/20/24 06/21/24 06/22/24 23:59 23:59 23:59 Intake Total 1533.33 / 1533.33 886.67 / 886.67 Output Total Balance 1533.33 / 1533.33 866.67 / 866.67 Lab / Micro Data 06/22/24 06:17 06/22/24 06:17 Labs: Laboratory Results - last 24 hr 06/22/24 06:17: WBC 4.7, RBC 3.10 L, Hgb 9.0 L, Hct 28.8 L, MCV 92.9 D, MCH 29.0, MCHC 31.3 L D, RDW Std Deviation 50.7 H, RDW Coeff of Noah 15.0 H, Plt Count 223, MPV 10.7, Immature Gran % (Auto) 0.400, Neut % (Auto) 70.5 H, Lymph % (Auto) 16.7 L, [place] % (Auto) 9.3, Eos % (Auto) 2.7, Baso % (Auto) 0.4, Absolute Neuts (auto) 3.3, Absolute Lymphs (auto) 0.79 L, Nucleated RBC % 0, Sodium 142, Potassium 3.8, Chloride 113 H, Carbon Dioxide 17.0 L, Anion Gap 12, BUN 22 H, Creatinine 0.97, Estim Creat Clear Calc 31.56, Est GFR (MDRD) Af Amer 71, Est GFR (MDRD) Non-Af 58 L, BUN/Creatinine Ratio 22.7 H, Glucose 73 L, Calcium 6.9 L Radiography Diagnostic Testing: Radiology Impression KUB X-Ray 06/22/24 06:40 IMPRESSION: No evidence of an acute intra-abdominal abnormality. Electronically Signed: Ahsan Xie DO at 8:02 EDT , Physical Exam Const oriented x3 and no apparent distress Resp normal respiratory effort GI soft to palpation and non-tender Inspection: Negative for abdominal distention Assessment & Plan Assessment/Plan (1) Obstruction of descending colon: PLAN: The patient has a very benign abdomen this morning with no distention or abdominal pain. I repeated a KUB but the KUB still shows a lot of stool in the right and transverse colon and she has not had a bowel movement besides the one after the fleets enema. She is passing some flatus. I will order another KUB for the morning and continue bowel rest as I believe the colon is still showing signs of obstruction. Await more substantial bowel function before starting a diet. Felix Neal MD Pager: [facility] [address] [place] [address], [address] [place] [address] Office:
[2024-06-22 10:39] VITALS: BP 134/74; PULSE 75; RESP 16; TEMP 36.4; O2SAT 95
[2024-06-22] MEDS: Lisinopril 5 MG Tablet PO (10:44)
--- NOTE | 2024-06-22 10:45 | CASEMGMT ---
RN CM Face to Face with patient for initial transition planning/care coordination assessment. RN CM introduced self and role at [facility]. Patient lying in bed, alert and oriented. Patient willing to participate in assessment and is able to answer all questions appropriately. Care providers, pharmacy, and demographics verified. Strata: 2 PCP: E[facility] Specialists: [facility] Preferred Pharmacy: [facility] Insurance: [employer] Prescription Benefit: yes Living Will/HPOA: yes, son Brice Ramon LNOK: son Living Arrangements: Patient lives alone in a single story home with 3 steps and railing to enter the home. Patient is independent at home. Transportation: self, neighbor DME/HHC: Patient denies DME in the home. No previous HHC of SNF Patient wishes to discharge home, denies need for home health at this time. Patient states she has no further needs or concerns at this time. CM to follow for discharge planning needs that may arise. Disposition Plan: Patient to discharge home with family/friend support and follow-up plans in place. Birdie FERNANDEZ, RN, CM
[2024-06-22 16:42] VITALS: BP 115/61; PULSE 66; RESP 16; TEMP 36.6; O2SAT 94
[2024-06-22] MEDS: Magnesium Chloride 64 MG Delay Rel.Tablet 128 MG PO (20:05)
[2024-06-22 22:42] VITALS: BP 108/60; PULSE 78; RESP 17; TEMP 37.1; O2SAT 95
[2024-06-23] MEDS: 0.9% Normal Saline (1000mL) 1,000 ML 100 ML IV (02:38)
[2024-06-23 03:48] VITALS: O2SAT 88
[2024-06-23 03:51] VITALS: BP 122/81; PULSE 88; RESP 17; TEMP 36.7; O2SAT 95
--- NOTE | 2024-06-23 05:00 | RAD_ITS ---
EXAM: XR ABDOMEN, 1 VIEW CLINICAL INDICATION: colon obstruction colon obstruction TECHNIQUE: Frontal supine view of the abdomen/pelvis. COMPARISON: X-ray 06/22/2024. CT scan abdomen and pelvis 06/21/2024. FINDINGS: LOWER THORAX: No acute pathology. GASTROINTESTINAL TRACT: There is increased prominence of bowel gas compared with yesterday''s study, possibly representing ileus. ORGANS: Unremarkable as visualized. No organomegaly. No abnormal calcifications. BONES/JOINTS: There is metallic surgical anchor overlying the right iliac bone. SOFT TISSUES: No acute pathology. RAD/Abdomen Single View IMPRESSION: Increased small bowel gas compared to yesterday''s exam, with a nonspecific nonobstructive pattern. Cannot exclude ileus. Electronically Signed: Harish Larkin MD at 6:50 EDT Reading Location ID and State: [facility] / [place] , Service support ,
[2024-06-23] MEDS: Levothyroxine 75 MCG Tablet PO (05:48)
[2024-06-23 07:02] LABS: Absolute Lymphocyte Count 0.75 X10^3/uL (0.83-4.51); Absolute Neutrophil Count 4.3 X10^3/uL (2.0-7.7); Basophil# 0.02 X10^3/uL; Basophil% 0.3 % (0-1); Eosinophil# 0.16 X10^3/uL; Eosinophils% 2.7 % (0-5); Hematocrit 27.2 % (37-47); Hemoglobin 8.4 g/dL (12.0-15.0); Lymphocyte # 0.75 X10^3/ul (0.83-4.51); Lymphocyte % 12.7 % (19-41); Mean Corp Hgb Conc 30.9 g/dL (32-36); Mean Corpuscular Hgb 29.3 pg (27.0-32.0); Mean Corpuscular Volume 94.8 fL (81-99); Mean Platelet Vol. 10.5 fl (6.2-12.0); Monocyte# 0.69 X10^3/uL; Monocyte% 11.7 % (0-10); NRBC Flagged by Analyzer 0 % (0-5); Neutrophil # 4.27 X10^3/uL (2.7-7.7); Neutrophil % 72.3 % (47-70); Platelet Count 196 K/mm3 (150-450); RBC Distribution Width CV 15.2 % (11.6-14.6); RBC Distribution Width SD 52.5 fl (35.1-43.9); Red Blood Count 2.87 M/mm3 (4.2-5.4); White Blood Count 5.9 K/mm3 (4.4-11.0)
[2024-06-23] MEDS: Mycophenolate Mofetil 250 MG Capsule 500 MG PO (07:33)
[2024-06-23] MEDS: Tacrolimus Anhydrous 1 MG Capsule 2 MG PO (07:33)
[2024-06-23] MEDS: Famotidine 20 MG Tablet PO (07:35)
--- NOTE | 2024-06-23 07:35 | PCM.PN.SRG ---
Subjective Subjective Patient evaluated resting comfortably in bed. She notes feeling improved. She states she had a successful bowel movement with the enema provided yesterday, however has not had any further results. She has tolerated clear liquids well. She is afraid to increase her diet yet. She notes passing large amounts of flatus. Objective Data Objective Data Vital Signs: Vital Signs Temp Pulse Resp BP Pulse Ox O2 Del Method 98.0 F 88 17 122/81 H 95 Room Air 06/23/24 03:51 06/23/24 03:51 06/23/24 03:51 06/23/24 03:51 06/23/24 03:51 06/23/24 03:51 Oxygen Delivery Method Room Air Weight: 109 lb 15.994 oz Body Mass Index (BMI) 22.2 Intake & Output: Intake and Output for Last 24 Hours 06/21/24 06/22/24 06/23/24 23:59 23:59 23:59 Intake Total 1533.33 / 1533.33 2396.67 / 2456.67 1151.67 / 1151.67 Output Total 45 / 45 0 / 0 Balance 1533.33 / 1533.33 2351.67 / 2411.67 1151.67 / 1151.67 Lab / Micro Data 06/23/24 06:47 06/23/24 08:32 Labs: Laboratory Results - last 24 hr 06/23/24 06:47: WBC 5.9, RBC 2.87 L, Hgb 8.4 L, Hct 27.2 L, MCV 94.8, MCH 29.3, MCHC 30.9 L, RDW Std Deviation 52.5 H, RDW Coeff of Noah 15.2 H, Plt Count 196, MPV 10.5, Immature Gran % (Auto) 0.300, Neut % (Auto) 72.3 H, Lymph % (Auto) 12.7 L, [place] % (Auto) 11.7 H, Eos % (Auto) 2.7, Baso % (Auto) 0.3, Absolute Neuts (auto) 4.3, Absolute Lymphs (auto) 0.75 L, Nucleated RBC % 0 Radiography Diagnostic Testing: Radiology Impression KUB X-Ray 06/22/24 06:40 IMPRESSION: No evidence of an acute intra-abdominal abnormality. Electronically Signed: Ahsan Xie DO at 8:02 EDT , KUB X-Ray 06/23/24 05:00 IMPRESSION: Increased small bowel gas compared to yesterday''s exam, with a nonspecific nonobstructive pattern. Cannot exclude ileus. Electronically Signed: Harish Larkin MD at 6:50 EDT , Physical Exam GI GI Narrative: Abdomen- soft, slight tenderness lower abdomen. Hypoactive bowel sounds Assessment & Plan Assessment/Plan (1) SBO (small bowel obstruction): PLAN: I am following this patient in conjunction with Dr. Tse. She will independently evaluated this patient. KUB this morning shows non-specific pattern of bowel gas consistent with an ileus Labs reviewed and repeated chem as the blood was drawn right above the IV Obtain small bowel follow-through If SBFT appears as the contrast is going through, will increase to full liquids. If tolerates fulls with increase to low fiber diet and discharge to home Will need follow-up in [address] Tse We will continue to monitor this patient Charges/Coding Visit Charges Inpatient E&M: 23650 [facility] [[email or web address] Hosp L1
[2024-06-23 07:44] LABS: Anion Gap 9 (5-15); BUN 19 mg/dL (7-18); Calcium,Total 5.9 mg/dL (8.5-10.1); Chloride 119 mmol/L (98-107); Creatinine, Serum 0.83 mg/dL (0.55-1.02); EST Glomerular Filtration Rate 70 mL/min (>60); Est Glom Filt Rate - Afr Amer 85 mL/min (>60); Estimated Creatinine Clearance 36.89 ml/min; Glucose 76 mg/dL (74-106); Potassium 3.8 mmol/L (3.5-5.1); Sodium Level 143 mmol/L (136-145)
--- NOTE | 2024-06-23 08:30 | RAD_ITS ---
PROCEDURE: Gastrografin SMALL BOWEL SERIES DATE OF EXAMINATION: June 23, 2024.. INDICATION: Female, 83 years old. Small bowel obstruction. PHYSICIAN: Ministerio Kidd M.D. TECHNIQUE: Radiographic and fluoroscopic images were taken of the small intestine following the ingestion of Gastrografin. Imaging was obtained at immediate congestion as well as one hour and 3 hour following the ingestion of Gastrografin. COMPARISON: None. FINDINGS: At the 1 hour image, contrast is seen throughout the colon. No evidence of small bowel obstruction. RAD/Small Bowel Series Only IMPRESSION: No evidence of small bowel obstruction. Electronically Signed: Ministerio Kidd MD at 14:11 EDT ,
[2024-06-23 09:33] LABS: Anion Gap 10 (5-15); BUN 20 mg/dL (7-18); BUN/Creat Ratio 17.4 RATIO (10-20); Calcium,Total 7.4 mg/dL (8.5-10.1); Chloride 113 mmol/L (98-107); Creatinine, Serum 1.15 mg/dL (0.55-1.02); EST Glomerular Filtration Rate 48 mL/min (>60); Est Glom Filt Rate - Afr Amer 58 mL/min (>60); Estimated Creatinine Clearance 26.62 ml/min; Glucose 93 mg/dL (74-106); Potassium 4.7 mmol/L (3.5-5.1); Sodium Level 138 mmol/L (136-145)
[2024-06-23 11:04] VITALS: BP 124/67; PULSE 60; RESP 16; TEMP 36.4; O2SAT 99
[2024-06-23] MEDS: Lisinopril 5 MG Tablet PO (11:07)
[2024-06-23] MEDS: 0.9% Normal Saline (1000mL) 1,000 ML 75 ML IV (12:11)
[2024-06-23 15:31] VITALS: BP 114/57; PULSE 73; RESP 16; TEMP 36.4; O2SAT 98
--- NOTE | 2024-06-23 16:02 | DS.PCM_ITS ---
Providers Date of Admission: 06/21/24 Primary Care Physician: Dr. Ha See MD Reason For Visit: COLONIC OBSTRUCTION Diagnosis Discharge Diagnosis (1) SBO (small bowel obstruction): Status: Acute Code(s): K56.609 - Unspecified intestinal obstruction, unspecified as to partial versus complete obstruction Plan: I am following this patient in conjunction with Dr. Tse. She will independently evaluated this patient. KUB this morning shows non-specific pattern of bowel gas consistent with an ileus Labs reviewed and repeated chem as the blood was drawn right above the IV Obtain small bowel follow-through If SBFT appears as the contrast is going through, will increase to full liquids. If tolerates fulls with increase to low fiber diet and discharge to home Will need follow-up in [address] Tse We will continue to monitor this patient Medications at Discharge Home Medications alprazolam 0.25 mg tablet 0.125 mg PO QHS PRN PRN Insomnia 01/17/19 levothyroxine 75 mcg tablet 75 mcg PO DAILY 01/17/19 tacrolimus 1 mg capsule, immediate-release (Prograf) 2 mg PO BID 01/17/19 biotin 10,000 mcg capsule 10,000 mcg PO DAILY 06/11/23 cholecalciferol (vitamin D3) 25 mcg (1,000 unit) tablet 25 mcg PO DAILY 06/11/23 cinacalcet 30 mg tablet (Sensipar) 30 mg PO DAILY 06/11/23 denosumab 60 mg/mL subcutaneous syringe (Prolia) 60 mg subcut [id number] 06/11/23 magnesium oxide 250 mg PO QHS supplement 06/11/23 mycophenolate mofetil 250 mg capsule 500 mg PO BID 07/10/23 famotidine 20 mg tablet 20 mg PO BID 05/29/24 lisinopril 5 mg tablet 5 mg PO DAILY 05/29/24 Hospital Course Summary of Care Provided Minutes Spent on Discharge: 35 Hospital Course: Patient is an 83 y/o F who presented to the ED with a 1 day history of worsening abdominal pain, nausea and vomiting. CT scan of the ab/pel was obtained demonstrating dilated loops of small bowel, dilatation of the ascending and transverse colon consistent with possible obstruction of the descending colon near the splenic flexure. Patient was placed on bowel rest and treated with conservative measures. She was not nauseated, so an NG tube was not placed. She was held at NPO for 2 days. She was given 2 enemas with successful bowel movements with both enemas, however no further production. On 06/23, a small bowel follow-through was obtained demonstrating no evidence of a bowel obstruction. Patient had multiple flatus and bowel movements following the small bowel follow-through. She was advanced to full liquids and was able to tolerate. She was advanced to fiber restricted diet and was able to tolerate this diet as well. Patient verbalized readiness to go home on a fiber restricted diet. Patient is to follow-up in [address] 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 Weight / BMI Weight Weight: 109 lb 15.994 oz Body Mass Index (BMI) 22.2 ABG / Lab / Microbiology Data 06/23/24 06:47 06/23/24 08:32 Laboratory: Laboratory Results - last 24 hr 06/23/24 06:47: WBC 5.9, RBC 2.87 L, Hgb 8.4 L, Hct 27.2 L, MCV 94.8, MCH 29.3, MCHC 30.9 L, RDW Std Deviation 52.5 H, RDW Coeff of Noah 15.2 H, Plt Count 196, MPV 10.5, Immature Gran % (Auto) 0.300, Neut % (Auto) 72.3 H, Lymph % (Auto) 12.7 L, [place] % (Auto) 11.7 H, Eos % (Auto) 2.7, Baso % (Auto) 0.3, Absolute Neuts (auto) 4.3, Absolute Lymphs (auto) 0.75 L, Nucleated RBC % 0, Sodium 143, Potassium 3.8, Chloride 119 H, Carbon Dioxide 15.0 L, Anion Gap 9, BUN 19 H, Creatinine 0.83, Estim Creat Clear Calc 36.89, Est GFR (MDRD) Af Amer 85, Est GFR (MDRD) Non-Af 70, BUN/Creatinine Ratio 23.0 H, Glucose 76, Calcium 5.9 L* 06/23/24 08:32: Sodium 138, Potassium 4.7, Chloride 113 H, Carbon Dioxide 15.0 L , Anion Gap 10, BUN 20 H, Creatinine 1.15 H, Estim Creat Clear Calc 26.62, Est GFR (MDRD) Af Amer 58 L, Est GFR (MDRD) Non-Af 48 L, BUN/Creatinine Ratio 17.4, Glucose 93, Calcium 7.4 L Radiography Diagnostic Testing: Radiology Impression KUB X-Ray 06/23/24 05:00 IMPRESSION: Increased small bowel gas compared to yesterday''s exam, with a nonspecific nonobstructive pattern. Cannot exclude ileus. Electronically Signed: Harish Larkin MD at 6:50 EDT , Small Bowel X-Ray 06/23/24 08:30 IMPRESSION: No evidence of small bowel obstruction. Electronically Signed: Ministerio Kidd MD at 14:11 EDT , D/C Instructions Discharge Diet: Soft diet (fiber restricted; see attached diet recommendations) Discharge Activity: May Drive Lifting Restrictions: no lifting greater than 10 pounds x 2 weeks Suture Line Care: Avoid Pulling/Pushing and Avoid Pinching/Bending Please Follow Up With: Mandy Tse MD When: Please contact our office at [phone], option #2, to schedule an appointment for 1 week Meaningful Use Info Meaningful Use Meaningful Use Diagnoses (Choose all that apply): None applicable Ischemic Stroke Statin Dosing Therapy Reference: STATIN DOSE THERAPY REFERENCE: * Patients > 75 years receive moderate or high dose statin therapy. * Patients 75 years or YOUNGER should receive HIGH intensity statin dose unless contraindicated. You will be required to document reason for non-treatment if statin daily dose does not meet guidelines. HIGH DOSE STATIN THERAPY DAILY Atorvastatin > than or = to 40 mg Rosuvastatin > than or = to 20 mg Amlodipine + Atorvastatin > than or = to 2.5/40 mg Ezetimibe + Simvastatin 10/80 mg Simvastatin 80mg Discharge Plan Admission Admit Date/Time: 06/21/24 08:36 Primary Reason for Your Visit: Small bowel obstructions Attending Provider: Felix Neal Primary Care Provider: Ha See Instructions Additional Instructions / Restrictions: What are low-fiber foods? If your doctor tells you to follow a low-fiber diet, here are low-fiber foods you can eat and higher-fiber foods you should avoid. Remember to always choose foods that you would normally eat. Do not try any foods that caused you discomfort or allergic reactions in the past. If you are on a ?low-residue diet,? your food choices are even more restricted than those listed below. Talk with your cancer care team or dietitian if you have questions about certain foods or amounts. Meat, fish, poultry, and protein Eat: Tender cuts of meat Ground meat Tofu Fish and shellfish Smooth peanut butter Eggs Bake, broil, or poach meats, and use mild seasonings. Try preparing meats as stews, roasts, meatloaves, casseroles, sandwiches, and soups using ingredients on the approved lists. Scramble, poach, or boil eggs; or make omelets, souffl?s, custard, puddings, and casseroles, using ingredients noted below. You might want to ask your doctor, nurse, or dietitian about other foods may be OK for you to eat, and find out when you can go back to your normal diet. Avoid: All beans, nuts, peas, lentils, and legumes Processed meats, hot dogs, sausage, and cold cuts Tough meats with gristle Dairy: Milk and cheese Eat: Only in small to medium amounts and only if they don?t cause problems for you Milk, chocolate milk, buttermilk, and milk drinks Yogurt without seeds or granola Sour cream Cheese Cottage cheese Custard or pudding Ice cream or frozen desserts (without nuts) Cream sauces, soups, and casseroles You can use these items in desserts, snacks, or breads. Bread, cereals, and grains Eat: White breads, waffles, [place]ian toast, plain white rolls, or white bread toast Pretzels Plain pasta or noodles White rice Crackers, zwieback, tamara, and matzoh (no cracked wheat or whole grains) Cereals without whole grains, added fiber, seeds, raisins, or other dried fruit Use white flour for baking and making sauces. Grains, such as white rice, Cream of Wheat, or grits, should be well-cooked. Include the above grains in casseroles, dumplings, souffl?s, cheese strata, kugels, and pudding. Avoid any food that contains: Brown or wild rice Whole grains, cracked grains, or whole wheat products Kasha (buckwheat) Cornbread or cornmeal Saeed crackers Bran Wheat germ Nuts Granola Coconut Dried fruit Seeds Vegetables and potatoes Eat: Tender, well-cooked fresh or canned vegetables without seeds, stems, or skins Cooked sweet or white potatoes without skins Strained vegetable juices without pulp or spices You can also eat these with cream sauces, or in soups, souffl?s, kugels, and casseroles. Avoid: All raw or steamed vegetables All types of beans Potatoes with skin Peas [place] Cabbage, broccoli, cauliflower, [place] sprouts, and greens Sauerkraut Onions Fruits and desserts Eat: Soft canned or cooked fruit without seeds or skins (small amounts) Small amounts of well-ripened banana Strained or clear juices Small amounts of soft cantaloupe or honeydew melon Cookies and other desserts without whole grains, dried fruit, berries, nuts, or coconut Sherbet and popsicles Serving suggestions include gelatins, milk shakes, frozen desserts, puddings, tapioca, cakes, and sauces. Avoid: All raw or dried fruits Berries Prune juice, prunes, and raisins Other foods Eat: Mayonnaise and mild salad dressings Margarine, butter, cream, and oils in small amounts Plain gravies Plain bouillon and broth Ketchup and mild mustard Spices, cooked herbs, and salt Sugar, honey, and syrup Clear jellies Hard candy and marshmallows Plain chocolate Avoid: Marmalade Pickles, olives, relish, and horseradish Popcorn Potato chips Liquids Keep in mind that low-fiber foods cause fewer bowel movements and smaller stools. You may need to drink extra fluids to help prevent constipation while you are on a low-fiber diet. Drink plenty of water unless your doctor tells you otherwise, and use juices and milk as noted above. Discharge Orders/Prescriptions Prescriptions: Continued cinacalcet [Sensipar] 30 mg tablet 30 mg PO DAILY magnesium oxide 250 mg magnesium tablet 250 mg PO QHS cholecalciferol (vitamin D3) 25 mcg (1,000 unit) tablet 25 mcg PO DAILY Prolia 60 mg/mL syringe 60 mg subcut [id number] biotin 10,000 mcg capsule 10,000 mcg PO DAILY levothyroxine 75 MCG tablet 75 mcg PO DAILY Patient Comments: TAKE 1 TABLET BY MOUTH EVERY DAY alprazolam 0.25 MG tablet 0.125 mg PO QHS PRN PRN (Reason: Insomnia) Patient Comments: TAKE 1/2 TO 1 TABLET AT BEDTIME NEEDED FOR SLEEP tacrolimus [Prograf] 1 MG capsule 2 mg PO BID Patient Comments: TAKE 2 CAPSULE TWICE DAILY mycophenolate mofetil 250 mg capsule 500 mg PO BID Patient Comments: TAKE 2 BY MOUTH TWICE A DAY famotidine 20 mg tablet 20 mg PO BID lisinopril 5 mg tablet 5 mg PO DAILY Referrals / Follow Up: Ha See MD [Primary Care Provider] - Disposition Disposition (needs filled in before D/C Order can be placed): Home, Self Care Charges/Coding Visit Charges Inpatient E&M: 84163 Disch Hosp >30min
--- NOTE | 2024-06-23 16:24 | CASEMGMT ---
Patient has order for discharge. RN CM in to discuss needs at discharge. Patient denies needs or help at discharge. Patient had no further questions or concerns.
[2024-06-23 18:11] VITALS: BP 121/77; PULSE 79; RESP 16; TEMP 36.4; O2SAT 98
== END 2024-06-23 18:29 | disposition home or self-care (01) | DRG 389 ==
LOC: ED 08:34 → PCU 08:43
PROVIDERS: Physician Assistant; Admitting Provider Surgery; Emergency Provider Emergency Medicine; PCP Family Medicine; Visit Provider Surgery
DX: K56.699 Other intestinal obstruction unspecified as to partial versus complete obstruction (principal); Z94.0 Kidney transplant status; Z79.621 Long term (current) use of calcineurin inhibitor; Z90.12 Acquired absence of left breast and nipple
CPT/HCPCS: 36415; 74018; 74177; 74250; 80048; 80053; 83690; 85025; 99283; J7030; Q9967; A4216; J2405

== ENCOUNTER 2024-08-14 08:05 | Outpatient (RCR) | payer MEDICARE, BC, SELFPAY ==
[2024-06-14 04:35] VITALS: BMI 20.7
[2024-08-14 08:39] LABS: Hematocrit 36.9 % (37-47); Mean Corp Hgb Conc 32.5 g/dL (32-36); Mean Corpuscular Hgb 29.5 pg (27.0-32.0); Mean Corpuscular Volume 90.7 fL (81-99); Mean Platelet Vol. 10.1 fl (6.2-12.0); Platelet Count 272 K/mm3 (150-450); RBC Distribution Width CV 14.5 % (11.6-14.6); RBC Distribution Width SD 48.2 fl (35.1-43.9); Red Blood Count 4.07 M/mm3 (4.2-5.4); White Blood Count 7.1 K/mm3 (4.4-11.0)
[2024-08-14 08:50] LABS: Protein, Urine (Random) 96.1 mg/dL (<11.9)
[2024-08-14 08:54] LABS: PTHIN 308.6 pg/mL (18.4-80.1)
[2024-08-14 09:02] LABS: Vitamin D,25 Hydroxy 43.1 ng/mL
[2024-08-14 09:19] LABS: Albumin, Serum 3.6 g/dL (3.2-5.0); BUN 20 mg/dL (7-18); BUN/Creat Ratio 16.7 RATIO (10-20); Calcium,Total 7.9 mg/dL (8.5-10.1); Chloride 105 mmol/L (98-107); EST Glomerular Filtration Rate 46 mL/min (>60); Est Glom Filt Rate - Afr Amer 55 mL/min (>60); Glucose 93 mg/dL (74-106); Phosphorus 3.6 mg/dL (2.5-4.9); Potassium 4.5 mmol/L (3.5-5.1); Sodium Level 135 mmol/L (136-145)
[2024-08-18 00:07] LABS: Tacrolimus (FK506) 5.1 ng/mL (2.0-20.0)
== END 2024-09-12 18:00 | disposition home or self-care (01) ==
LOC: LAB 08:05
PROVIDERS: Family Provider Family Medicine; PCP Family Medicine
DX: E55.9 Vitamin D deficiency, unspecified (principal); I10 Essential (primary) hypertension; Z94.0 Kidney transplant status; Z79.899 Other long term (current) drug therapy
CPT/HCPCS: 36415; 80069; 80197; 82306; 82570; 83735; 83970; 84156; 85027

== ENCOUNTER 2024-11-23 07:31 | Outpatient (RCR) | payer MEDICARE, BC, SELFPAY ==
[2024-09-12 23:57] VITALS: BMI 20.7
[2024-11-23 08:16] LABS: Hematocrit 33.6 % (37-47); Hemoglobin 11.3 g/dL (12.0-15.0); Mean Corp Hgb Conc 33.6 g/dL (32-36); Mean Corpuscular Hgb 29.4 pg (27.0-32.0); Mean Corpuscular Volume 87.5 fL (81-99); Mean Platelet Vol. 9.9 fl (6.2-12.0); Platelet Count 311 K/mm3 (150-450); RBC Distribution Width CV 14.1 % (11.6-14.6); RBC Distribution Width SD 45.1 fl (35.1-43.9); Red Blood Count 3.84 M/mm3 (4.2-5.4); White Blood Count 6.3 K/mm3 (4.4-11.0)
[2024-11-23 08:23] LABS: Protein, Urine (Random) 85.9 mg/dL (<11.9)
[2024-11-23 08:45] LABS: BUN 29 mg/dL (7-18); BUN/Creat Ratio 21.2 RATIO (10-20); Calcium,Total 8.9 mg/dL (8.5-10.1); Chloride 102 mmol/L (98-107); Creatinine, Serum 1.37 mg/dL (0.55-1.02); EST Glomerular Filtration Rate 39 mL/min (>60); Est Glom Filt Rate - Afr Amer 47 mL/min (>60); Glucose 92 mg/dL (74-106); Magnesium 1.7 mg/dL (1.6-2.6); Phosphorus 5.3 mg/dL (2.5-4.9); Potassium 4.1 mmol/L (3.5-5.1); Sodium Level 134 mmol/L (136-145)
[2024-11-23 09:33] LABS: PTHIN 31.9 pg/mL (18.4-80.1)
[2024-11-23 09:40] LABS: Vitamin D,25 Hydroxy 62.5 ng/mL
[2024-11-25 07:07] LABS: Tacrolimus (FK506) 6.1 ng/mL (5.0-20.0)
== END 2024-12-11 18:00 | disposition home or self-care (01) ==
LOC: LAB 07:31
PROVIDERS: Family Provider Family Medicine; PCP Family Medicine
DX: E55.9 Vitamin D deficiency, unspecified (principal); I10 Essential (primary) hypertension; Z94.0 Kidney transplant status; Z79.899 Other long term (current) drug therapy
CPT/HCPCS: 36415; 80069; 80197; 82306; 83735; 83970; 84156; 85027

== ENCOUNTER 2025-02-12 07:41 | Outpatient (RCR) | payer MEDICARE, BC, SELFPAY ==
[2024-12-12 05:06] VITALS: BMI 20.7
[2025-02-12 08:33] LABS: Hematocrit 37.4 % (37-47); Hemoglobin 12.1 g/dL (12.0-15.0); Mean Corp Hgb Conc 32.4 g/dL (32-36); Mean Corpuscular Hgb 29.4 pg (27.0-32.0); Mean Platelet Vol. 10.1 fl (6.2-12.0); Platelet Count 250 K/mm3 (150-450); RBC Distribution Width CV 14.6 % (11.6-14.6); RBC Distribution Width SD 48.7 fl (35.1-43.9); Red Blood Count 4.11 M/mm3 (4.2-5.4); White Blood Count 5.4 K/mm3 (4.4-11.0)
[2025-02-12 09:50] LABS: PTHIN 168 pg/mL (11-61)
[2025-02-12 10:03] LABS: Albumin, Serum 3.9 g/dL (3.4-4.8); Anion Gap 11 (5-15); BUN 22 mg/dL (4-19); BUN/Creat Ratio 17.3 RATIO (10-20); Chloride 103 mmol/L (98-108); Creatinine, Serum 1.28 mg/dL (0.70-1.20); EST Glomerular Filtration Rate 41 (>60); Glucose 95 mg/dL (70-99); Magnesium 1.9 mg/dL (1.5-2.2); Phosphorus 4.1 mg/dL (2.7-4.5); Potassium 4.6 mmol/L (3.3-5.1); Sodium Level 136 mmol/L (133-145); Vitamin D,25 Hydroxy 62.5 ng/mL (30-100)
[2025-02-17 09:08] LABS: Tacrolimus (FK506) 7.9 ng/mL (5.0-20.0)
== END 2025-02-12 18:00 | disposition home or self-care (01) ==
LOC: LAB 07:41
PROVIDERS: Family Provider Family Medicine; PCP Family Medicine
DX: E55.9 Vitamin D deficiency, unspecified (principal); I10 Essential (primary) hypertension; Z94.0 Kidney transplant status; Z79.899 Other long term (current) drug therapy
CPT/HCPCS: 36415; 80069; 80197; 82306; 83735; 83970; 84156; 85027

== ENCOUNTER → 2025-04-21 | Outpatient (CLI) | payer MEDICARE, BC, SELFPAY ==
--- NOTE | 2025-04-21 09:45 | BI_ITS ---
EXAM: SCREEN MAMM (CAD) W/CECILIA UNI R DATE: 04/21/2025 CLINICAL HISTORY: F, Age 84 y/o , SCREENING FOR BREAST CANCER TECHNIQUE: SCREEN MAMM (CAD) W/CECILIA UNI R COMPARISON: Prior exam(s) dated 04/21/2024, 04/19/2022. FINDINGS: TISSUE DENSITY: The breasts are heterogeneously dense, which may obscure small masses. The mammogram demonstrates that the patient has dense breasts. Supplemental screening with whole breast ultrasound or MRI may be considered for further evaluation. Unilateral Right Breast Mammographic Findings: No significant masses, calcifications or other abnormalities are identified. BI/SCREEN MAMM (CAD) W/CECILIA UNI R IMPRESSION: There is no mammographic evidence of malignancy. OVERALL FINAL ASSESSMENT BI-RADS 1: NEGATIVE. RECOMMEND ANNUAL MAMMOGRAPHIC SCREENING. RECOMMENDATION: Routine annual follow-up in 1 Year A letter with findings and recommendations will be mailed to the patient. Reading Location: [id number]
== END | disposition home or self-care (01) ==
LOC: OPBI 09:54
PROVIDERS: PCP Family Medicine; Referring Provider Nurse Practitioner Family; Visit Provider Nurse Practitioner Family
DX: Z12.31 Encounter for screening mammogram for malignant neoplasm of breast (principal)
CPT/HCPCS: 77063; 77067

== ENCOUNTER 2025-05-14 07:40 | Outpatient (RCR) | payer MEDICARE, BC, SELFPAY ==
[2025-03-14 18:56] VITALS: BMI 20.7
[2025-05-14 08:19] LABS: Hematocrit 35.2 % (37-47); Hemoglobin 11.5 g/dL (12.0-15.0); Mean Corp Hgb Conc 32.7 g/dL (32-36); Mean Corpuscular Volume 91.7 fL (81-99); Mean Platelet Vol. 10.6 fl (6.2-12.0); Platelet Count 253 K/mm3 (150-450); RBC Distribution Width CV 14.8 % (11.6-14.6); RBC Distribution Width SD 49.6 fl (35.1-43.9); Red Blood Count 3.84 M/mm3 (4.2-5.4); White Blood Count 5.8 K/mm3 (4.4-11.0)
[2025-05-14 09:18] LABS: Albumin, Serum 3.9 g/dL (3.4-4.8); Anion Gap 11 (5-15); BUN 26 mg/dL (4-19); BUN/Creat Ratio 21.3 RATIO (10-20); Calcium,Total 9.6 mg/dL (7.6-11.0); Carbon Dioxide 19.6 mmol/L (21.0-32.0); Chloride 105 mmol/L (98-108); Glucose 96 mg/dL (70-99); Magnesium 2.1 mg/dL (1.5-2.2); Potassium 4.9 mmol/L (3.3-5.1); Vitamin D,25 Hydroxy 67.4 ng/mL (30-100)
[2025-05-14 09:23] LABS: PTHIN 100 pg/mL (11-61)
[2025-05-14 09:51] LABS: Protein, Urine (Random) 107.0 mg/dL (0.0-12.0)
== END 2025-05-14 18:00 | disposition home or self-care (01) ==
LOC: LAB 07:40
PROVIDERS: Family Provider Family Medicine; PCP Family Medicine
DX: E55.9 Vitamin D deficiency, unspecified (principal); I10 Essential (primary) hypertension; Z94.0 Kidney transplant status; Z79.899 Other long term (current) drug therapy
CPT/HCPCS: 36415; 80069; 80197; 82306; 83735; 83970; 84156; 85027

== ENCOUNTER 2025-08-14 07:17 | Outpatient (RCR) | payer MEDICARE, BC, SELFPAY ==
[2025-08-14 08:07] LABS: Hematocrit 35.7 % (37-47); Hemoglobin 11.7 g/dL (12.0-15.0); Mean Corp Hgb Conc 32.8 g/dL (32-36); Mean Corpuscular Volume 89.7 fL (81-99); Mean Platelet Vol. 10.6 fl (6.2-12.0); Platelet Count 282 K/mm3 (150-450); RBC Distribution Width CV 14.3 % (11.6-14.6); RBC Distribution Width SD 46.1 fl (35.1-43.9); Red Blood Count 3.98 M/mm3 (4.2-5.4); White Blood Count 5.8 K/mm3 (4.4-11.0)
[2025-08-14 08:41] LABS: Creatinine, Urine (random) 49.30 mg/dL (28.00-217.00); Protein, Urine (Random) 88.4 mg/dL (0.0-12.0); Protein:Creat Ratio 1793 mg/g CRE (0-200)
[2025-08-14 08:42] LABS: PTHIN 137 pg/mL (11-61)
[2025-08-14 08:56] LABS: Albumin, Serum 4.0 g/dL (3.4-4.8); Anion Gap 10 (5-15); BUN 22 mg/dL (4-19); BUN/Creat Ratio 20.7 RATIO (10-20); Calcium,Total 9.4 mg/dL (7.6-11.0); Carbon Dioxide 19.6 mmol/L (21.0-32.0); Chloride 104 mmol/L (98-108); Glucose 90 mg/dL (70-99); Magnesium 2.2 mg/dL (1.5-2.2); Potassium 4.6 mmol/L (3.3-5.1); Vitamin D,25 Hydroxy 76.6 ng/mL (30-100)
== END 2025-09-12 18:00 | disposition home or self-care (01) ==
LOC: LAB 07:17
PROVIDERS: Family Provider Family Medicine; PCP Family Medicine
DX: E55.9 Vitamin D deficiency, unspecified (principal); I10 Essential (primary) hypertension; Z94.0 Kidney transplant status; Z79.899 Other long term (current) drug therapy
CPT/HCPCS: 36415; 80069; 80197; 82306; 82570; 83735; 83970; 84156; 85027

== ENCOUNTER → 2025-09-27 | Outpatient (CLI) | payer MEDICARE, BC, SELFPAY ==
--- NOTE | 2025-09-27 13:57 | RAD_ITS ---
PROCEDURE: ABDOMEN SINGLE VIEW 09/27/2025 REASON FOR EXAM: RIGHT LOWER ABDOMINAL PAIN TECHNIQUE: Procedure Code: RADABD Modality: DX Procedure: ABDOMEN SINGLE VIEW COMPARISON: KUB, 06/22/2024 FINDINGS: There is a nonobstructive bowel gas pattern. There is no significant stool burden. There are no abnormal soft tissue calcifications or radiopaque foreign bodies. There are no acute bony abnormalities. There is an orthopedic clip in the right iliac wing. RAD/Abdomen Single View IMPRESSION: No evidence of acute abdominal pathology. Reading Location: [place] [id number]
[2025-09-27 17:32] LABS: Hematocrit 36.0 % (37-47); Hemoglobin 11.6 g/dL (12.0-15.0); Immature Granulocytes Count 0.010 X10^3/uL (0.0-0.0); Mean Corp Hgb Conc 32.2 g/dL (32-36); Mean Corpuscular Volume 90.5 fL (81-99); Mean Platelet Vol. 11.2 fl (6.2-12.0); NRBC Flagged by Analyzer 0 % (0-5); POSITIVE DIFFERENTIAL YES; Platelet Count 237 K/mm3 (150-450); RBC Distribution Width CV 13.9 % (11.6-14.6); RBC Distribution Width SD 46.5 fl (35.1-43.9); Red Blood Count 3.98 M/mm3 (4.2-5.4); White Blood Count 4.5 K/mm3 (4.4-11.0)
[2025-09-27 18:49] LABS: AST(SGOT) 14 U/L (<=31); Alanine Aminotransfer ALT/SGPT 6 U/L (<=34); Albumin, Serum 4.0 g/dL (3.4-4.8); Alkaline Phosphatase 71 U/L (35-104); Anion Gap 12 (5-15); BUN 27 mg/dL (4-19); BUN/Creat Ratio 24.9 RATIO (10-20); CRP 29.70 mg/L (0.0-3.0); Calcium,Total 9.2 mg/dL (7.6-11.0); Carbon Dioxide 21.1 mmol/L (21.0-32.0); Chloride 99 mmol/L (98-108); Globulin 2.6 g/dL (2.2-4.2); Glucose 109 mg/dL (70-99); Potassium 4.6 mmol/L (3.3-5.1); Vitamin D,25 Hydroxy 76.7 ng/mL (30-100)
--- OUTSIDE RECORDS SUMMARY | 2025-09-27 20:12 | XMS RPT_ITS | CCD ---
Author Organization [facility] Care Team Providers Care Manufacturer Agent Name Role Phone Sadie Carrillo Unavailable Unavailable Edna Kevin Unavailable Unavailable Michael Valera Unavailable Unavailable Kristen Hubbard Unavailable Unavailable Kristen Hubbard Unavailable Unavailable Unavailable Osman See MD Primary Care Provider Dr. Kristen Hubbard Primary Care Unavailab MD EDNA Bates Attending Dr. Kristen Garza Primary Care Unavailab MD EDNA Bates Attending Osman Zhao MD Primary Care Provider OSMAN SEE Primary Care Unavailable Dr. Osman See Primary Care Provider RUPA Whitaker Attending Provider Unavail Dr. Osman Gracia Referring Provider [phone] Dr. Alexander Torres Attending Provider Dr. Osman Hankins Attending Provider Shahriar PORTER, GERMAN-Isaura Juarez Attending Provider Dr. Osman See Primary Care Provider RUPA Whitaker Attending Provider Unavail Dr. Osman Gracia Referring Provider Dr. Alexander Torres Attending Provider Dr. Osman Hankins Attending Provider Dr. Alexandre Torres Referring Provider Shahriar PORTER, GERMAN-C Ann Attending Provider Osman See MD Primary Care Provider Kristen Hubbard DO Primary Care Provider Mandy Tse MD Unavailable YAW APPLE Attending Unavail able PAPOURLILI, YAW LONG Referring Unavail able OSMAN SEE A Primary Care Unavailable YAW APPLE Attending Unavail able PAPJACQUES, YAW LONG Referring Unavail able OSMAN SEE A Primary Care Unavailable Dr. Osman See MD Primary Care Provider EDNA KEVIN Attending Provider EDNA KEVIN Referring Provider Dr. Osman See MD Referring Provider Dr. Mandy Tse MD Attending Provider Rm EXTRAS CASTING DIRECTOR-C, Alisha Attending Provider Dr. Reji Kohli MD Attending Provider Dr. Reji Kohli MD Referring Provider Dr. Osman See MD Primary Care Provider EDNA KEVIN Attending Provider EDNA KEVIN Referring Provider Rm EXTRAS CASTING DIRECTOR-C, Alisha Attending Provider Rm EXTRAS CASTING DIRECTOR-C, Alisha Referring Provider Dr. Osman See MD Referring Provider Dr. Mandy Tse MD Attending Provider Dr. Osman See MD Primary Care Provider EDNA KEVIN Attending Provider EDNA KEVIN Referring Provider Dr. Reji Kohli MD Attending Provider Dr. Reji Kohli MD Referring Provider See, Osman Primary Care Unavailable Rm EXTRAS CASTING DIRECTOR, Alisha Attending Unavailable See, Osman Referring Unavailable See, Osman Primary Care Unavailable Robotham, Mandy Attending Unavailable See, Osman Referring Unavailable See, Osman Primary Care Unavailable LAYNE, TABBITHA Attending Unavailable LAYNE, TABBITHA Referring Unavailable See, Osman Primary Care Unavailable Rm EXTRAS CASTING DIRECTOR, Alisha Attending Unavailable Rm EXTRAS CASTING DIRECTOR, Alisha Referring Unavailable See, Osman Primary Care Unavailable LAYNE, TABBITHA Attending Unavailable LAYNE, TABBITHA Referring Unavailable Isckarus, Allenour Attending Unavailable Isckarus, Allenour Referring Unavailable See, Osman Primary Care Unavailable LAYNE, TABBITHA Referring Unavailable LAYNE, TABBITHA Attending Unavailable See, Osman Primary Care Unavailable See, Osman Primary Care Unavailable LAYNE, TABBITHA Attending Unavailable LAYNE, TABBITHA Referring Unavailable Isckarus, Allenour Attending Unavailable See, Osman Referring Unavailable See, Osman Primary Care Unavailable See, Osman Primary Care Unavailable Rm EXTRAS CASTING DIRECTOR, Alisha Attending Unavailable See, Osman Referring Unavailable See, Osman Primary Care Unavailable Robotham, Mandy Attending Unavailable See, Osman Referring Unavailable KRISTEN HUBBARD Primary Care Unavailable NATO FISHER Attending Riya vailable Medications Current Medications Medication Drug Class(es) Dates Sig (Normalized) Sig (Original) ALPRAZolam 0.25 mg oral tablet (20 sources) Benzodiazepine Start: 01-17-2019 take 0.125 mg by mouth at bedtime as needed Alprazolam 0.25 MG tablet Active 0.125 mg PO AT BEDTIME NEEDED as needed for Insomnia January 17, 2019 12:00am Start: 01-17-2019 take 0.125 mg by tejal th at bedtime as needed Alprazolam Active 0.125 MG PO AT BEDTIME NEEDED January 16, 2019 11:00pm Start: 08-20-2018 take 1 tablet by tejal th once daily as needed Xanax 0.25 MG Oral Tablet TAKE 1 TABLET DAILY NEEDED. Refills: 0 DO Start : 20-Aug-2018 Active Start: 08-20-2018 take 0.5 tablet by m outh once daily as needed Xanax 0.25 MG Oral Tablet TAKE half TABLET DAILY NEEDED. Quantity: 0 Refills: 0 Ordered: 23-Aug-2021 DO Start : 20-Aug-2018 Active Comment on above: Take 0.25 mg by mout h daily at bedtime. ascorbic acid 226 mg / beta carotene 27050 unt / cuprous oxide 0.8 mg / dl-alpha tocopheryl acetate 200 unt / zinc oxide 34.8 mg oral capsule (10 sources) Vitamin C Vit A,C,E-Zinc-C opper (PRESERVISION AREDS) 14,320-226-200 qqpr-ej-lnmd cap Take by mouth. Active Comment on above: Take by mouth. cholecalciferol 0.025 mg oral tablet (20 sources) Vitamin D Start: 06-11-20 take 1 tablet by mouth once daily Cholecalciferol (Vitamin D3) 25 mcg (1,000 unit) tablet Active 25 ug PO DAILY June 11, 2023 12:00am Start: 08-23-2014 Cholecalcifero l, Vitamin D3, 3,000 unit tab Take 1,000 Units by mouth once daily. 0 08/23/2014 Active take 1 capsule by mo uth once daily Vitamin D3 25 MCG (1000 UT) Oral Capsule TAKE 1 CAPSULE Daily Quantity: 0 Refills: 0 Ordered: 19-Feb-2017 DO Active Comment on above: Take 1,000 Units by mouth once daily. 1 ml denosumab 60 mg/ml prefilled syringe (20 sources) RANK Ligand Inhibitor Start: 06-11-2023 Denosumab (Prolia) 60 mg/mL syringe Active 60 mg SC every 6 months June 11, 2023 12:00am Prolia 60 MG/ML Subcutaneous Solution INJECT SUBCUTANEOUSLY 60 MG / 1 ML EVERY 6 MONTHS Quantity: 0 Refills: 0 Ordered: 22-Aug-2017 DO Active Comment on above: Inject 60 mg subcuta neously one time only. Every 6 months famotidine 20 mg oral tablet (20 sources) Histamine-2 Receptor Antagonist Start: End: take 1 tablet by mouth twice daily Famotidine 20 mg tablet Active 20 mg PO TWICE A DAY May 29, 2024 12:00am Start: 07-10-2023 End: 05-29-2024 take 1 tablet by mouth once daily Famotidine 40 mg tablet Discontinued 40 mg PO DAILY July 10, 2023 3:26pm May 29, 2024 1:14pm Start: 06-11-2023 End: 07-10-2023 Famotidine 40 mg tablet Discontinued 20 mg PO TWICE A DAY June 11, 2023 3:35pm July 10, 2023 3:27pm Start: 06-11-2023 End: 07-10-2023 take 20 mg by mouth twice daily Famotidine Discontinue d 20 MG PO TWICE A DAY June 11, 2023 2:35pm July 10, 2023 2:27pm Start: 11-10-2021 End: 11-01-2022 take 1 tablet by mouth twice daily before mealtime famotidine (PEPCID) 20 mg tablet TAKE 1 TABLET BY MOUTH TWICE A DAY BEFORE MEALS 180 tablet 3 11/01/2022 Active Start: 01-17-2019 End: 12-13-2023 Famotidine 40 MG tablet Discontinued 20 mg PO DAILY January 17, 2019 12:00am June 11, 2023 3:38pm Start: 01-17-2019 End: 06-11-2023 take 20 mg by mouth once daily Famotidine Discontinued 20 MG PO DAILY January 16, 2019 11:00pm June 11, 2023 2:38pm take 1 tablet by tejal th once daily famotidine (Pepcid) 20 mg tablet Take 1 tablet (20 mg) by mouth once daily. Active Famotidine 20 MG Oral Tablet Quantity: 0 Refills: 0 Ordered: 12-Feb-2019 Michael Valera MD Active Famotidine 20 MG Oral Tablet Refills: 0 Michael Valera Active Comment on above: Take 20 mg by mouth once daily. TAKE 1 TABLET BY TEJAL TH TWICE A DAY BEFORE MEALS Lactobac no.41/Bifidobact no.7 (PROBIOTIC-10 ORAL) (14 sources) Lactobac no.41/B ifidobact no.7 (PROBIOTIC-10 ORAL) Take by mouth. Active Lactobac no.41/B ifidobact no.7 (PROBIOTIC-10 ORAL) Take by mouth. 0 Active Comment on above: Take by mouth. levothyroxine sodium 0.075 mg oral tablet (20 sources) l-Thyroxine Start: take 1 tablet by mouth once daily Levothyroxine 75 MCG tablet Active 75 ug PO DAILY January 17, 2019 12:00am Comment on above: Take one(1) tablet d aily. magnesium hydroxide 400 mg chewable tablet (14 sources) take 250 doses by mouth once daily at bedtime Magnesium Hydroxide 400 mg (170 mg) chew Take 250 Each by mouth daily at bedtime. Active Comment on above: Take 250 Each by tejal th daily at bedtime. magnesium oxide 250 mg oral tablet (11 sources) Start: take 1 tablet by mouth at bedtime Magnesium Oxide 250 mg magnesium tablet Active 250 mg PO AT BEDTIME June 11, 2023 12:00am supplement take 1 tablet by mouth once cyndie y Magnesium Oxide 400 MG Oral Tablet TAKE 1 TABLET DAILY. Refills: 0 DO Active mycophenolate mofetil 250 mg oral capsule (20 sources) Start: 11-27-2023 End: 11-25-2024 take 2 capsules by mouth twice daily mycophenolate (Cellcept) 250 mg capsule Indications: Kidney replaced by transplant ([facility]) TAKE TWO (2) CAPSULES BY MOUTH TWICE A DAY 120 capsule 11 08/15/2024 10:38 AM EDT 11/27/2023 11/25/2024 Active Start: 01-17-2019 End: 07-10-2023 take 1 capsule by mouth twice daily Mycophenolate Mofetil 250 mg capsule Active 500 mg PO TWICE A DAY July 10, 2023 3:27pm Start: 01-17-2019 End: 07-10-2023 take 500 mg by mouth twice daily Mycophenolate Mofetil Active 500 MG PO TWICE A DAY July 10, 2023 2:27pm Start: 06-03-2015 take 2 capsules by m out twice daily Mycophenolate Mofetil 250 MG Oral Capsule take 2 by mouth twice a day Quantity: 120 Refills: 11 Ordered: 21-Nov-2022 Herberth MCKEON, Edna Start : 03-Jun-2015 Active Start: 08-23-2014 take 1 tablet by etjal th twice daily mycophenolate Mofetil (CELLCEPT) 500 mg tablet Take 500 mg by mouth twice daily. 0 08/23/2014 Active Comment on above: Take 500 mg by mouth twice daily. tacrolimus 1 mg oral capsule (20 sources) Calcineurin Inhibitor Immunosuppressant Start: 06-03-2015 Tacrolimus (Prograf) 1 MG capsule Active 2 mg PO TWICE A DAY January 17, 2019 12:00am Start: 08-23-2014 End: 11-25-2024 tacrolimus IR (PROGRAF) 1 mg capsule 1 mg twice daily. 08/23/2014 Active Comment on above: 1 mg twice daily. Vitamins A,C,E-Uyyc-Kidtpb (Preservision Areds) 4,296 mcg-226 mg-90 mg capsule (5 sources) Start: 07-13-2024 Vitamins A,C,S-Jacp-Zguxob (Preservision Areds) 4,296 mcg-226 mg-90 mg capsule Active 1 NMA PO TWICE A DAY July 13, 2024 12:00am Completed/Discontinued Medications Medication Drug Class(es) Dates Sig (Normalized) Sig (Original) acetaminophen 325 mg oral tablet (5 sources) Start: 06-10-2024 End: 06-21-2024 take 2 tablets by mouth every six hours as needed for pain Acetaminophen 325 mg Tablet Discontinued 650 mg PO EVERY 6 HOURS NEEDED as needed for Pain Score 1-10 0 0 June 10, 2024 12:00am June 21, 2024 5:48am biotin 10 mg oral capsule (20 sources) Start: 06-11-2023 End: 07-13-2024 take 1 capsule by mouth once daily Biotin 10,000 mcg capsule Discontinued 82091 ug PO DAILY June 11, 2023 12:00am July 13, 2024 10:29am Start: 06-11-2023 take 1 ug by mouth once daily Biotin Active MCG PO DAILY June 10, 2023 11:00pm take 1 tablet by mouth once cyndie y Biotin 72599 MCG Oral Tablet TAKE 1 TABLET DAILY. Quantity: 0 Refills: 0 Ordered: 23-Aug-2021 DO Active Comment on above: Take by mouth once d aily. cinacalcet 30 mg oral tablet (20 sources) Calcium-sensing Receptor Agonist Start: 2 End: 5 take 1 tablet by mouth once daily Cinacalcet (Sensipar) 30 mg tablet Discontinued 30 mg PO DAILY June 11, 2023 12:00am June 23, 2025 10:32am Comment on above: Take 30 mg by mouth once daily. ferrous sulfate 325 mg oral tablet (5 sources) Start: 4 End: take 1 tablet by mouth once daily Ferrous Sulfate 325 mg (65 mg iron) tablet Discontinued 325 mg PO daily July 13, 2024 12:00am June 23, 2025 10:32am lisinopril 2.5 mg oral tablet (20 sources) Angiotensin Converting Enzyme Inhibitor Start: End: take 2 tablets by mouth once daily Lisinopril 2.5 mg tablet Discontinued 5 mg PO DAILY July 10, 2023 3:26pm May 29, 2024 1:14pm Start: 07-10-2023 take 5 mg by mouth once daily Lisinopril Active 5 MG PO DAILY July 10, 2023 2:26pm Start: 06-11-2023 End: 07-10-2023 take 1 tablet by mouth once daily Lisinopril 2.5 mg tablet Discontinued 2.5 mg PO DAILY June 11, 2023 4:21pm July 10, 2023 3:27pm Start: 01-17-2019 End: 06-11-2023 take 2 tablets by mouth once daily Lisinopril 2.5 MG tablet Discontinued 5 mg PO DAILY January 17, 2019 12:00am June 11, 2023 4:24pm Start: 01-17-2019 End: 06-11-2023 take 5 mg by mouth once daily Lisinopril Discontinued 5 MG PO DAILY January 16, 2019 11:00pm June 11, 2023 3:24pm Start: 09-01-2015 take 1 tablet by tejal th once daily Lisinopril 5 mg tablet Active 5 mg PO DAILY May 29, 2024 12:00am Start: 09-01-2015 take 2.5 mg by mouth once cyndie y Lisinopril Active 2.5 MG PO DAILY January 16, 2019 11:00pm Comment on above: Take 2.5 mg by mouth once daily. Take 5 mg by mouth o nce daily. Magnesium (7 sources) take 1 tablet by mouth once daily Magnesium 250 MG Oral Tablet TAKE 1 TABLET DAILY. 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 0 Active Comment on above: Take by mouth. 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] Onset: 5 06-17-2024 Chronic Chronic kidney disease (20 sources) History of renal transplant; Translations: [Anemia in chronic kidney disease] Onset: 5 12-22-2004 Chronic Deficiency and other anemia (20 sources) Anemia; Translations: [Anemia, unspecified] Onset: 6 07-22-2006 Episodic Diverticulosis and diverticulitis (20 sources) Diverticulosis of colon; Translations: [Diverticulosis of large intestine without perforation or abscess without bleeding] 07-22-2006 Chronic Esophageal disorders (20 sources) Corral's esophagus; Translations: [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] Onset: 9 Chronic Comment on above: ON MED AND HAD NISSE N Essential hypertension (6 sources) Essential (primary) hypertension; Translations: [Essential hypertension] Onset: 3 08-28-2024 Chronic Genitourinary symptoms and ill-defined conditions (9 sources) Proteinuria; Translations: [Proteinuria] Episodic Hemorrhoids (14 sources) Internal hemorrhoids; Translations: [Other hemorrhoids] 07-22-2006 Episodic Hypertension with complications and secondary hypertension (3 sources) Renal hypertension; 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] Onset: 4 08-26-2024 Chronic Immunity disorders (10 sources) Immunosuppression; Translations: [Unspecified disorder of immune mechanism] Onset: 3 Chronic Intestinal obstruction without hernia (10 sources) Obstruction of colon; Translations: [Unspecified intestinal obstruction, unspecified as to partial versus complete obstruction] 06-24-2024 Episodic Nonmalignant breast conditions (5 sources) Microcalcifications of the breast; Translations: [Mammographic microcalcification found on diagnostic imaging of breast] 04-29-2024 Episodic Nutritional deficiencies (5 sources) Vitamin D deficiency; Translations: [Unspecified vitamin D deficiency] Onset: 2 Chronic Osteoporosis (9 sources) Osteoporosis; Translations: [Age-related osteoporosis without current pathological fracture] 06-11-2023 Chronic Other aftercare (1 source) Transplant follow-up; Translations: [Encounter for aftercare following other organ transplant] 08-26-2024 Chronic Other aftercare (2 sources) Encounter for aftercare following other organ transplant; Translations: [Encounter for aftercare following other organ transplant] Onset: 4 Chronic Other aftercare (9 sources) Immunosuppression; 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] 06-11-2023 Episodic Other aftercare (1 source) Long-term current use of drug therapy; Translations: [Other terminal make up operator (current) drug therapy] 08-26-2024 Episodic Other circulatory disease (9 sources) Bruit; Translations: [Other specified symptoms and signs involving the circulatory and respiratory systems] 07-10-2023 Episodic Other circulatory disease (3 sources) Other specified symptoms and signs involving the circulatory and respiratory systems; Translations: [Other symptoms involving cardiovascular system] 07-10-2023 Episodic Other endocrine disorders (1 source) Hyperparathyroidism; Translations: [Hyperparathyroidism, unspecified] 08-26-2024 Chronic Other endocrine disorders (2 sources) Hyperparathyroidism, unspecified; Translations: [Hyperparathyroidism, unspecified (Multi)] Onset: 4 Chronic Other nutritional; endocrine; and metabolic disorders (14 sources) Hypoproteinemia; 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 Residual codes; unclassified (9 sources) Acute insomnia; Translations: [Insomnia, unspecified] 06-11-2023 Episodic Residual codes; unclassified (7 sources) History of left mastectomy; Translations: [Acquired absence of left breast and nipple] 06-17-2024 Episodic Comment on above: 06/09/2024 Thyroid disorders (20 sources) Hypothyroidism; Translations: [Hypothyroidism, unspecified] Onset: 4 06-11-2023 Chronic Unclassified (1 source) OPENED IN ERROR 08-17-2024 Past or Other Problems Problem Classification Problem Date Documented Da te Episodic/Chronic Abdominal pain (14 sources) Generalized abdominal pain; Translations: [Generalized abdominal pain] Onset: 9 08-03-2020 Episodic Complication of device; implant or graft (14 sources) Complication associated with vascular device; Translations: [Other mechanical complication of other cardiac and vascular devices and implants, initial encounter] Onset: 5 08-11-2005 Episodic Deficiency and other anemia (2 sources) Anemia, unspecified; Translations: [Anemia, unspecified type] Onset: 4 Episodic Gastrointestinal hemorrhage (20 sources) Hematochezia; Translations: [Melena] Onset: 9 08-24-2009 Episodic Other aftercare (4 sources) Other terminal make up operator (current) drug therapy; Translations: [Other [facility] (current) drug therapy] Onset: 2 Episodic Other and unspecified benign neoplasm (14 sources) Benign neoplasm of colon; Translations: [Benign neoplasm of colon, unspecified] Onset: 6 06-10-2006 Episodic Other and unspecified benign neoplasm (14 sources) History of polyp of colon; Translations: [Personal history of colonic polyps] Onset: 4 08-23-2014 Episodic Other eye disorders (8 sources) Dermatochalasis of right upper eyelid; Translations: [Dermatochalasis] Onset: 2 Resolved: 2 12-15-2021 Episodic Other screening for suspected conditions (not mental disorders or infectious disease) (20 sources) Patient encounter status; Translations: [Screening for unspecified condition] Onset: 4 08-13-2024 Episodic Residual codes; unclassified (14 sources) Family history of malignant neoplasm of gastrointestinal tract; Translations: [Family history of malignant neoplasm of digestive organs] Onset: 4 08-23-2014 Episodic Unclassified (2 sources) Patient encounter status; Translations: [Screening for blood or protein in urine] Unclassified (1 source) Onset: 4 08-26-2024 NEGATED: Highlighted row has not occurred!Residual codes; unclassified (7 sources) Disease Episodic Results Test Name Value Interpretation Reference Range Facility Tacrolimus (Prograf)on 08-18 Tacrolimus (Bld) [Mass/Vol] 7.3 ng/mL Normal 5.0-20.0 [facility] Comment on above: Order Comment: Test( s) [id number] ([id number]), Bloodwas developed and its performance characteristicsdetermined by [facility]. It has not been cleared or approvedby the Food and Drug Administration. Result Comment: Targ et steady state trough concentration for Tacrolimus varies based on type of organ transplant immunosuppressive protocol and other patient specific factors. Tacrolimus trough concentrations should be interpreted in conjunction with clinical assessments of rejection and tolerability. Values obtained with different assay methods cannot be used interchangeably due to differences in assay methods and cross-reactivty with metabolites, nor should correction factors be applied. Therefore, consistent use of one assay for individual patients is recommended. Detection Limit = 0.5 ng/mL Performed by LC-MS/MS technology. Performed at: [address] [id number] Button Machine Operator: Su Iraheta MD, Phone: [phone] Performed By: #### L 509.1000, L501.5200, L3380.1000, L506.1000, L100.0500, L500.3600, L501.1930 #### [facility] [address] [place], [address] CBC-Complete Blood Cnt No Di ffon 11-01-2025 Erythrocyte distribution width (RBC) [Ratio] 14.3 % Normal 11.6-14.6 [facility] Comment on above: Performed By: #### L 509.1000, L501.5200, L3380.1000, L506.1000, L100.0500, L500.3600, L501.1930 #### [facility] [address] [place], [address] Hematocrit (Bld) [Volume fraction] 35.7 % Low 37-47 [facility] Comment on above: Performed By: #### L 509.1000, L501.5200, L3380.1000, L506.1000, L100.0500, L500.3600, L501.1930 #### [facility] [address] [facility] [place], [address] Hemoglobin (Bld) [Mass/Vol] 11.7 g/dL Low 12.0-15.0 [facility] Comment on above: Performed By: #### L 509.1000, L501.5200, L3380.1000, L506.1000, L100.0500, L500.3600, L501.1930 #### [facility] [address] [place], [address] MCH (RBC) [Entitic mass] 29.4 pg Normal 27.0-32.0 [facility] Comment on above: Performed By: #### L 509.1000, L501.5200, L3380.1000, L506.1000, L100.0500, L500.3600, L501.1930 #### [facility] [address] [place], [address] MCHC (RBC) [Mass/Vol] 32.8 g/dL Normal 32-36 [facility] Comment on above: Performed By: #### L 509.1000, L501.5200, L3380.1000, L506.1000, L100.0500, L500.3600, L501.1930 #### [facility] [address] [place], [address] MCV (RBC) [Entitic vol] 89.7 fL Normal 81-99 [facility] Comment on above: Performed By: #### L 509.1000, L501.5200, L3380.1000, L506.1000, L100.0500, L500.3600, L501.1930 #### [facility] [address] [place], [address] Platelet mean volume (Bld) [Entitic vol] 10.6 fL Normal 6.2-12.0 [facility] Comment on above: Performed By: #### L 509.1000, L501.5200, L3380.1000, L506.1000, L100.0500, L500.3600, L501.1930 #### [facility] [address] [place], [address] Platelets (Bld) [#/Vol] 282 10*3/uL Normal 150-450 [facility] Comment on above: Performed By: #### L 509.1000, L501.5200, L3380.1000, L506.1000, L100.0500, L500.3600, L501.1930 #### [facility] [address] [place], [address] RBC (Bld) [#/Vol] 3.98 10*6/uL Low 4.2-5.4 [facility] Comment on above: Performed By: #### L 509.1000, L501.5200, L3380.1000, L506.1000, L100.0500, L500.3600, L501.1930 #### [facility] [address] [place], [address] RDW SD 46.1 fl High 35.1-43.9 [facility] Comment on above: Performed By: #### L 509.1000, L501.5200, L3380.1000, L506.1000, L100.0500, L500.3600, L501.1930 #### [facility] [address] [place], [address] WBC (Bld) [#/Vol] 5.8 10*3/uL Normal 4.4-11.0 [facility] Comment on above: Performed By: #### L 509.1000, L501.5200, L3380.1000, L506.1000, L100.0500, L500.3600, L501.1930 #### [facility] [address] [place], [address] Magnesiumon 08-14-2025 Magnesium [Mass/Vol] 2.2 mg/dL Normal 1.5-2.2 [facility] Comment on above: Performed By: #### L 509.1000, L501.5200, L3380.1000, L506.1000, L100.0500, L500.3600, L501.1930 #### [facility] [address] [place], [address] PTHINon 08-14-2025 PTH 137 pg/mL High 11-61 [facility] Comment on above: Performed By: #### L 509.1000, L501.5200, L3380.1000, L506.1000, L100.0500, L500.3600, L501.1930 #### [facility] [address] [place], [address] Protein+Creatinine Ratio,Uri neon 08-14-2025 PROT:CRE RATIO 1793 mg/g CRE High 0-200 [facility] Comment on above: Performed By: #### L 509.1000, L501.5200, L3380.1000, L506.1000, L100.0500, L500.3600, L501.1930 #### [facility] [address] [place], [address] Protein (U) [Mass/Vol] 88.4 mg/dL High 0.0-12.0 [facility] Comment on above: Performed By: #### L 509.1000, L501.5200, L3380.1000, L506.1000, L100.0500, L500.3600, L501.1930 #### [facility] [address] [place], [address] UR CREAT 49.30 mg/dL Normal 28.00-217. 00 [facility] Comment on above: Performed By: #### L 509.1000, L501.5200, L3380.1000, L506.1000, L100.0500, L500.3600, L501.1930 #### [facility] [address] [place], [address] Renal Profileon 08-14-2025 Albumin [Mass/Vol] 4.0 g/dL Normal 3.4-4.8 [facility] Comment on above: Performed By: #### L 509.1000, L501.5200, L3380.1000, L506.1000, L100.0500, L500.3600, L501.1930 #### [facility] [address] [place], [address] BUN/CRE 20.7 RATIO High 10-20 [facility] Comment on above: Performed By: #### L 509.1000, L501.5200, L3380.1000, L506.1000, L100.0500, L500.3600, L501.1930 #### [facility] [address] [place], [address] Calcium [Mass/Vol] 9.4 mg/dL Normal 7.6-11.0 [facility] Comment on above: Performed By: #### L 509.1000, L501.5200, L3380.1000, L506.1000, L100.0500, L500.3600, L501.1930 #### [facility] [address] [place], [address] Chloride [Moles/Vol] 104 mmol/L Normal 98-108 [facility] Comment on above: Performed By: #### L 509.1000, L501.5200, L3380.1000, L506.1000, L100.0500, L500.3600, L501.1930 #### [facility] [address] [place], [address] CO2 [Moles/Vol] 19.6 mmol/L Low 21.0-32.0 [facility] Comment on above: Performed By: #### L 509.1000, L501.5200, L3380.1000, L506.1000, L100.0500, L500.3600, L501.1930 #### [facility] [address] [place], [address] Creatinine [Mass/Vol] 1.05 mg/dL Normal 0.70-1.20 [facility] Comment on above: Performed By: #### L 509.1000, L501.5200, L3380.1000, L506.1000, L100.0500, L500.3600, L501.1930 #### [facility] [address] [place], [address] GAP 10 Normal 5-15 [facility] Comment on above: Performed By: #### L 509.1000, L501.5200, L3380.1000, L506.1000, L100.0500, L500.3600, L501.1930 #### [facility] [address] [place], [address] GFR/1.73 sq M.predicted among non-blacks MDRD (S/P/Bld) [Vol rate/Area] 52 mL/min/{1.73_m2} Low >60 [facility] Comment on above: Result Comment: mL/m in/1.73m2 CKD-EPI Creatinine Equation (2020) Performed By: #### L 509.1000, L501.5200, L3380.1000, L506.1000, L100.0500, L500.3600, L501.1930 #### [facility] [address] [place], [address] Glucose [Mass/Vol] 90 mg/dL Normal 70-99 [facility] Comment on above: Performed By: #### L 509.1000, L501.5200, L3380.1000, L506.1000, L100.0500, L500.3600, L501.1930 #### [facility] [address] [place], [address] Phosphate [Mass/Vol] 3.7 mg/dL Normal 2.7-4.5 [facility] Comment on above: Performed By: #### L 509.1000, L501.5200, L3380.1000, L506.1000, L100.0500, L500.3600, L501.1930 #### [facility] [address] [place], [address] Potassium [Moles/Vol] 4.6 mmol/L Normal 3.3-5.1 [facility] Comment on above: Performed By: #### L 509.1000, L501.5200, L3380.1000, L506.1000, L100.0500, L500.3600, L501.1930 #### [facility] [address] [place], [address] Sodium [Moles/Vol] 134 mmol/L Normal 133-145 [facility] Comment on above: Performed By: #### L 509.1000, L501.5200, L3380.1000, L506.1000, L100.0500, L500.3600, L501.1930 #### [facility] [address] [place], [address] Urea nitrogen [Mass/Vol] 22 mg/dL High 4-19 [facility] Comment on above: Performed By: #### L 509.1000, L501.5200, L3380.1000, L506.1000, L100.0500, L500.3600, L501.1930 #### [facility] [address] [facility] [place], [address] Vitamin D,25 Hydroxyon 08-14 Vitamin D 25-OH 76.6 ng/mL Normal 30-100 [facility] Comment on above: Result Comment: Jess min D Status Deficiency: <20 ng/mL (50nmol/L) Insufficiency: 20-30 ng/mL (50-75 nmol/L) Sufficiency: 30-100 ng/mL (75-250 nmol/L) Toxicity: >100 ng/mL (>250 nmol/L) Performed By: #### L 509.1000, L501.5200, L3380.1000, L506.1000, L100.0500, L500.3600, L501.1930 #### [facility] [address] [facility] [place], [address] Absolute lymphocyte countOrd ered By: Reji Kohli on 06-23-2025 Lymphocytes Auto (Unsp spec) [#/Vol] 1.11 10*3/uL 0.83-4.51 [facility] Absolute neutrophil countOrd ered By: Reji Kohli on 06-23-2025 Neutrophils (Bld) [#/Vol] 4.0 10*3/uL 2.0-7.7 [facility] Anion gap in Serum or Plasma Ordered By: Reji Kohli on 06-23-2025 Anion gap [Moles/Vol] 13 mmol/L 5-15 [facility] Automated lymphocyte count a s percentage of total leukocytesOrdered By: Reji Kohli on 06-23-2025 Lymphocytes/100 WBC Auto (Unsp spec) 17.9 % Low 19-41 [facility] BUN/creatinine ratioOrdered By: Reji Kohli on 06-23-2025 Urea nitrogen/Creatinine [Mass ratio] 16.8 mg/mg 10-20 [facility] Basophil percentageOrdered B y: Reji Kohli on 06-23-2025 Basophils/100 WBC (Bld) 0.6 % 0-1 [facility] Bilirubin, totalOrdered By: Reji Kohli on 06-23-2025 Bilirubin [Mass/Vol] 0.43 mg/dL 0.00-1.30 [facility] CBC W/Diff, Automatedon 06-14-2024 Absolute Lymph 1.11 X10 3/uL Normal 0.83-4.51 [facility] Comment on above: Performed By: #### L 509.1000, L501.5200, L3380.1000, L506.1000, L100.0500, L500.3600, L501.1930 #### [facility] [address] [place], [address] Absolute Neut 4.0 X10 3/uL Normal 2.0-7.7 [facility] Comment on above: Performed By: #### L 509.1000, L501.5200, L3380.1000, L506.1000, L100.0500, L500.3600, L501.1930 #### [facility] [address] [place], [address] Basophils/100 WBC (Bld) 0.6 % Normal 0-1 [facility] Comment on above: Performed By: #### L 509.1000, L501.5200, L3380.1000, L506.1000, L100.0500, L500.3600, L501.1930 #### [facility] [address] [place], [address] Eosinophils/100 WBC (Bld) 2.3 % Normal 0-5 [facility] Comment on above: Performed By: #### L 509.1000, L501.5200, L3380.1000, L506.1000, L100.0500, L500.3600, L501.1930 #### [facility] [address] [place], [address] Erythrocyte distribution width (RBC) [Ratio] 14.6 % Normal 11.6-14.6 [facility] Comment on above: Performed By: #### L 509.1000, L501.5200, L3380.1000, L506.1000, L100.0500, L500.3600, L501.1930 #### [facility] [address] [place], [address] Hematocrit (Bld) [Volume fraction] 36.9 % Low 37-47 [facility] Comment on above: Performed By: #### L 509.1000, L501.5200, L3380.1000, L506.1000, L100.0500, L500.3600, L501.1930 #### [facility] [address] [place], [address] Hemoglobin (Bld) [Mass/Vol] 12.3 g/dL Normal 12.0-15.0 [facility] Comment on above: Performed By: #### L 509.1000, L501.5200, L3380.1000, L506.1000, L100.0500, L500.3600, L501.1930 #### [facility] [address] [place], [address] IG% 0.300 Normal 0.0-0.9 [facility] Comment on above: Result Comment: IG% - Immature Granulocytes (promyelocytes, myelocytes and metamyelocytes) > 1% indicates that a LEFT SHIFT is Present. Performed By: #### L 509.1000, L501.5200, L3380.1000, L506.1000, L100.0500, L500.3600, L501.1930 #### [facility] [address] [place], [address] Lymphocytes/100 WBC (Bld) 17.9 % Low 19-41 [facility] Comment on above: Performed By: #### L 509.1000, L501.5200, L3380.1000, L506.1000, L100.0500, L500.3600, L501.1930 #### [facility] [address] [place], [address] MCH (RBC) [Entitic mass] 30.4 pg Normal 27.0-32.0 [facility] Comment on above: Performed By: #### L 509.1000, L501.5200, L3380.1000, L506.1000, L100.0500, L500.3600, L501.1930 #### [facility] [address] [place], [address] MCHC (RBC) [Mass/Vol] 33.3 g/dL Normal 32-36 [facility] Comment on above: Performed By: #### L 509.1000, L501.5200, L3380.1000, L506.1000, L100.0500, L500.3600, L501.1930 #### [facility] [address] [place], [address] MCV (RBC) [Entitic vol] 91.1 fL Normal 81-99 [facility] Comment on above: Performed By: #### L 509.1000, L501.5200, L3380.1000, L506.1000, L100.0500, L500.3600, L501.1930 #### [facility] [address] [place], [address] Monocytes/100 WBC (Bld) 13.9 % High 0-10 [facility] Comment on above: Performed By: #### L 509.1000, L501.5200, L3380.1000, L506.1000, L100.0500, L500.3600, L501.1930 #### [facility] [address] [place], [address] Neutrophils/100 WBC (Bld) 65.0 % Normal 47-70 [facility] Comment on above: Performed By: #### L 509.1000, L501.5200, L3380.1000, L506.1000, L100.0500, L500.3600, L501.1930 #### [facility] [address] [place], [address] Nucleated RBC (Bld) [#/Vol] 0 10*3/uL Normal 0-5 [facility] Comment on above: Performed By: #### L 509.1000, L501.5200, L3380.1000, L506.1000, L100.0500, L500.3600, L501.1930 #### [facility] [address] [place], [address] Platelet mean volume (Bld) [Entitic vol] 10.2 fL Normal 6.2-12.0 [facility] Comment on above: Performed By: #### L 509.1000, L501.5200, L3380.1000, L506.1000, L100.0500, L500.3600, L501.1930 #### [facility] [address] [place], [address] Platelets (Bld) [#/Vol] 261 10*3/uL Normal 150-450 [facility] Comment on above: Performed By: #### L 509.1000, L501.5200, L3380.1000, L506.1000, L100.0500, L500.3600, L501.1930 #### [facility] [address] [place], [address] RBC (Bld) [#/Vol] 4.05 10*6/uL Low 4.2-5.4 [facility] Comment on above: Performed By: #### L 509.1000, L501.5200, L3380.1000, L506.1000, L100.0500, L500.3600, L501.1930 #### [facility] [address] [place], [address] RDW SD 49.1 fl High 35.1-43.9 [facility] Comment on above: Performed By: #### L 509.1000, L501.5200, L3380.1000, L506.1000, L100.0500, L500.3600, L501.1930 #### [facility] [address] [place], [address] WBC (Bld) [#/Vol] 6.2 10*3/uL Normal 4.4-11.0 [facility] Comment on above: Performed By: #### L 509.1000, L501.5200, L3380.1000, L506.1000, L100.0500, L500.3600, L501.1930 #### [facility] [address] [place], [address] Carbon dioxide, total [Moles /volume] in Central venous bloodOrdered By: Reji Kohli on 06-23-2025 CO2 [Moles/Vol] 19.5 mmol/L Low 21.0-32.0 [facility] Chloride assayOrdered By: Joshua Kohli on 06-23-2025 Chloride [Moles/Vol] 99 mmol/L 98-108 [facility] Comprehensive Metabolic Prof ilon 06-23-2025 Albumin [Mass/Vol] 4.3 g/dL Normal 3.4-4.8 [facility] Comment on above: Performed By: #### L 509.1000, L501.5200, L3380.1000, L506.1000, L100.0500, L500.3600, L501.1930 #### [facility] [address] [place], [address] Albumin/Globulin [Mass ratio] 1.9 {ratio} Normal 0.9-2.4 [facility] Comment on above: Performed By: #### L 509.1000, L501.5200, L3380.1000, L506.1000, L100.0500, L500.3600, L501.1930 #### [facility] [address] [place], [address] ALK PHOS 67 U/L Normal 35-104 [facility] Comment on above: Performed By: #### L 509.1000, L501.5200, L3380.1000, L506.1000, L100.0500, L500.3600, L501.1930 #### [facility] [address] [place], [address] ALT [Catalytic activity/Vol] U/L Normal <=34 [facility] Comment on above: Performed By: #### L 509.1000, L501.5200, L3380.1000, L506.1000, L100.0500, L500.3600, L501.1930 #### [facility] [address] [place], [address] AST [Catalytic activity/Vol] 13 U/L Normal <=31 [facility] Comment on above: Performed By: #### L 509.1000, L501.5200, L3380.1000, L506.1000, L100.0500, L500.3600, L501.1930 #### [facility] [address] [place], [address] Bilirubin [Mass/Vol] 0.43 mg/dL Normal 0.00-1.30 [facility] Comment on above: Performed By: #### L 509.1000, L501.5200, L3380.1000, L506.1000, L100.0500, L500.3600, L501.1930 #### [facility] [address] [place], [address] BUN/CRE 16.8 RATIO Normal 10-20 [facility] Comment on above: Performed By: #### L 509.1000, L501.5200, L3380.1000, L506.1000, L100.0500, L500.3600, L501.1930 #### [facility] [address] [place], [address] Calcium [Mass/Vol] 9.2 mg/dL Normal 7.6-11.0 [facility] Comment on above: Performed By: #### L 509.1000, L501.5200, L3380.1000, L506.1000, L100.0500, L500.3600, L501.1930 #### [facility] [address] [place], [address] Chloride [Moles/Vol] 99 mmol/L Normal 98-108 [facility] Comment on above: Performed By: #### L 509.1000, L501.5200, L3380.1000, L506.1000, L100.0500, L500.3600, L501.1930 #### [facility] [address] [place], [address] CO2 [Moles/Vol] 19.5 mmol/L Low 21.0-32.0 [facility] Comment on above: Performed By: #### L 509.1000, L501.5200, L3380.1000, L506.1000, L100.0500, L500.3600, L501.1930 #### [facility] [address] [place], [address] Creatinine [Mass/Vol] 1.25 mg/dL High 0.70-1.20 [facility] Comment on above: Performed By: #### L 509.1000, L501.5200, L3380.1000, L506.1000, L100.0500, L500.3600, L501.1930 #### [facility] [address] [place], [address] ECRCL 24.06 ml/min Low 50-250 [facility] Comment on above: Performed By: #### L 509.1000, L501.5200, L3380.1000, L506.1000, L100.0500, L500.3600, L501.1930 #### [facility] [address] [place], [address] GAP 13 Normal 5-15 [facility] Comment on above: Performed By: #### L 509.1000, L501.5200, L3380.1000, L506.1000, L100.0500, L500.3600, L501.1930 #### [facility] [address] [place], [address] GFR/1.73 sq M.predicted among non-blacks MDRD (S/P/Bld) [Vol rate/Area] 43 mL/min/{1.73_m2} Low >60 [facility] Comment on above: Result Comment: mL/m in/1.73m2 CKD-EPI Creatinine Equation (2020) Performed By: #### L 509.1000, L501.5200, L3380.1000, L506.1000, L100.0500, L500.3600, L501.1930 #### [facility] [address] [place], [address] Globulin (S) [Mass/Vol] 2.3 g/dL Normal 2.2-4.2 [facility] Comment on above: Performed By: #### L 509.1000, L501.5200, L3380.1000, L506.1000, L100.0500, L500.3600, L501.1930 #### [facility] [address] [place], [address] Glucose [Mass/Vol] 107 mg/dL High 70-99 [facility] Comment on above: Performed By: #### L 509.1000, L501.5200, L3380.1000, L506.1000, L100.0500, L500.3600, L501.1930 #### [facility] [address] [place], [address] Potassium [Moles/Vol] 4.7 mmol/L Normal 3.3-5.1 [facility] Comment on above: Performed By: #### L 509.1000, L501.5200, L3380.1000, L506.1000, L100.0500, L500.3600, L501.1930 #### [facility] [address] [place], [address] Sodium [Moles/Vol] 131 mmol/L Low 133-145 [facility] Comment on above: Performed By: #### L 509.1000, L501.5200, L3380.1000, L506.1000, L100.0500, L500.3600, L501.1930 #### [facility] [address] [place], [address] T PROT 6.6 g/dL Normal 5.9-8.4 [facility] Comment on above: Performed By: #### L 509.1000, L501.5200, L3380.1000, L506.1000, L100.0500, L500.3600, L501.1930 #### [facility] [address] [place], [address] Urea nitrogen [Mass/Vol] 21 mg/dL High 4-19 [facility] Comment on above: Performed By: #### L 509.1000, L501.5200, L3380.1000, L506.1000, L100.0500, L500.3600, L501.1930 #### [facility] [address] [place], [address] Eosinophil percentageOrdered By: Reji Kohli on 06-23-2025 Eosinophils/100 WBC (Bld) 2.3 % 0-5 [facility] Erythrocyte distribution wid th ratioOrdered By: Reji Kohli on 06-23-2025 Erythrocyte distribution width (RBC) [Ratio] 14.6 % 11.6-14.6 [facility] Erythrocyte distribution wid th standard deviationOrdered By: Reji Kohli on 06-23-2025 Erythrocyte distribution width (RBC) [Ratio] 49.1 fl High 35.1-43.9 [facility] Glomerular filtration rate ( GFR) estimation/1.73 sq m using serum, plasma, or whole bOrdered By: Reji Kohli on 06-23-2025 GFR/1.73 sq M.predicted among non-blacks MDRD (S/P/Bld) [Vol rate/Area] 43 mL/min/{1.73_m2} Low >60 [facility] Comment on above: mL/min/1.73m2 CKD-EP I Creatinine Equation (2020) Hematocrit Auto (Bld) [Volum e fraction]Ordered By: Reji Kohli on 06-23-2025 Hematocrit (Bld) [Volume fraction] 36.9 % Low 37-47 [facility] Hemoglobin measurementOrdere d By: Reji Kohli on 06-23-2025 Hemoglobin (Bld) [Mass/Vol] 12.3 g/dL 12.0-15.0 [facility] Immature granulocytes/100 WB C Auto (Bld)Ordered By: Reji Kohli on 06-23-2025 Immature granulocytes/100 WBC (Bld) 0.300 % 0.0-0.9 [facility] Comment on above: IG% - Immature Granu locytes (promyelocytes, myelocytes and metamyelocytes) > 1% indicates that a LEFT SHIFT is Present. Laboratory - Chemistry and C hemistry - challengeOrdered By: Reji Kohli on 06-23-2025 AST [Catalytic activity/Vol] 13 U/L <32 [facility] MCV (mean corpuscular volume ) determinationOrdered By: Reji Kohli on 06-23-2025 MCV (RBC) [Entitic vol] 91.1 fL 81-99 [facility] Mean corpuscular hemoglobin (MCH) determinationOrdered By: Reji Kohli on 06-23-2025 MCH (RBC) [Entitic mass] 30.4 pg 27.0-32.0 [facility] Mean corpuscular hemoglobin concentration (MCHC) determinationOrdered By: Reji Kohli on 06-23-2025 MCHC (RBC) [Mass/Vol] 33.3 g/dL 32-36 [facility] Mean platelet volume determi nationOrdered By: Allenmario Kohli on 06-23-2025 Platelet mean volume (Bld) [Entitic vol] 10.2 fL 6.2-12.0 [facility] Monocyte percentageOrdered B y: Reji Seun on 06-23-2025 Monocytes/100 WBC (Bld) 13.9 % High 0-10 [facility] Neutrophil percentageOrdered By: Allenmario Kohli on 06-23-2025 Neutrophils/100 WBC (Bld) 65.0 % 47-70 [facility] Nucleated red blood cell per centageOrdered By: [facility] on 06-23-2025 Nucleated RBC/100 WBC (Bld) [Ratio] 0 % 0-5 [facility] Oncology Visit Reporton 06-14 Oncology Visit Report [facility] [address] [place] [address] OFFICE VISIT Date of Service: 06/23/25 1014 MR#: [id number] Acct: [id number] Name: MU LINCOLN Rep #: [id number] : 1940 From: Reji Kohli MD Age/Sex: 84/F [place] [facility] [place] Status: Signed HPI Subjective Date of Service 06/23/25 Chief Complaint Breast cancer History of Present Illness 83-year-old female who presented after an abnormal screening mammogram following a 2-year And screening mammography. 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 Present. Microcalcifications ??? Present. Other findings: Intraductal hyperplasia with and without atypia. Skin with no pathologic change. ANTIBODY / CLONE RESULT Block 1 P53 (DO-7) positive, wild type Ki-67 (30-9) positive, 35% CK8 (73kgezK10) positive CK5-6 (D5 1684) negative Calponin-1 (PQ279W) negative P40 (BC28) negative E-Cad (ECH-6) positive MOC-31 (4561) positive MORPHOMETRIC ANALYSIS ER (clone 6F11) 0 % MI (clone 16/1E2) 0% Her-2Neu (clone CB11) 3+ June 09, 2024 left mastectomy with sentinel lymph node biopsy: FROZEN SECTION DIAGNOSIS A. Left axillary sentinel lymph node, biopsy: One out of one lymph node, negative for carcinoma. AM.mr 06/09/2024 MICROSCOPIC DIAGNOSIS A. Left axillary sentinel lymph node, biopsy: One lymph node, negative for metastatic carcinoma. See comment. B. Left breast, mastectomy: Ductal carcinoma in situ. See cancer summary in the comment section. SJ/mr 06/12/2024 COMMENT The lymph node is negative for metastatic carcinoma on multiple H E levels and immunohistochemical stains for cytokeratins ([id number]). B. Cancer summary: Specimen: Procedure: Total mastectomy Specimen laterality: Left Tumor: Tumor site: Inferior portion, deep central lateral aspect as per clinical information. Histologic type: Ductal carcinoma in situ Size (extent of DCIS): 1.5 x 0.5cm (measures microscopically), tumor is present adjacent to the previous biopsy site Number of blocks with DCIS: 1 Number of blocks examined: 12 Architectural pattern: Comedo and cribriform Nuclear Grade: Grade 3 (high) Necrosis: Present, central (expansive comedo ???necrosis???) Microcalcifications: Present in DCIS and non-neoplastic tissue Margins: The tumor is 3.0cm from closest inferior margin Regional lymph node status: Number of lymph node examined: 1 Number of sentinel lymph node examined: 1 Number of lymph node with macrometasteses, micrometasteses and isolated tumor cells:0 Distal metastases: Not applicable Additional findings: - Focal intraductal hyperplasia with atypia - Changes consistent with previous biopsy site. Ancillary studies: Previously performed on [id number] and [id number] ER- negative (0) MI- negative (0) Her2 pooja- positive (3) Ki67- positive, 35% Clinical information: Please make reference to previous specimen [id number] left breast, stereotactic core biopsy with diagnosis of ductal carcinoma in situ. Pathology staging: pTis (DCIS) pN0(sn) pMx [facility] Medical History Screening for breast cancer Ductal carcinoma in situ (DCIS) of left breast Cancer Post-menopausal Alcohol use Thyroid disease Arthritis Low iron Anemia History of diverticulitis Non-smoker History of atrial fibrillation History of echocardiogram Cardiology follow-up encounter GERD (gastroesophageal reflux disease) Blepharochalasis Metatarsalgia of right foot Hiatal hernia Acute insomnia History of colon polyps Diverticulosis of colon Immunosuppression due to drug therapy Osteoporosis Renal transplant disorder Hypothyroidism Barretts esophagus Surgical History S/P left mastectomy History of Petra fundoplication Hx of left cataract extraction Hx of right cataract extraction Hx of esophagogastroduodenoscopy Hx of colonoscopy Hx of hernia repair Hx of kidney transplant Hx of kidney transplant Arteriovenous fistula removed (2012) H/O parathyroidectomy (2012) Kidney transplanted (2010) Hx of tonsillectomy (1983) History of hysterectomy (1989) Family History Father Non-Hodgkin lymphoma Brother History of esophageal cancer Brother Diabetes CAD (coronary artery disease) Obesity Cirrhosis from fatty liver Kidney disease Son Non-Hodgkin lymphoma Social History Smoking Status: Never smoker alcohol intake: never substance use type: does not use ROS Constitutional Constitutional: Reports systems reviewed and no addt'l complaints, except as documented; Denies fatigue, fever(s) or (more content not included)... Normal [facility] Platelet countOrdered By: Joshua Kohli on 06-23-2025 Platelets (Bld) [#/Vol] 261 10*3/uL 150-450 [facility] Potassium measurement (mass/ volume)Ordered By: Reji Kohli on 06-23-2025 Potassium (Unsp spec) [Mass/Vol] 4.7 mmol/L 3.3-5.1 [facility] RBC Auto (Bld) [#/Vol]Ordere d By: Reji Kohli on 06-23-2025 RBC (Bld) [#/Vol] 4.05 10*6/uL Low 4.2-5.4 [facility] Serum creatinine measurement (mass/volume)Ordered By: Reji Kohli on 06-23-2025 Creatinine [Mass/Vol] 1.25 mg/dL High 0.70-1.20 [facility] Serum globulin measurementOr dered By: Reji Kohli on 06-23-2025 Globulin (S) [Mass/Vol] 2.3 g/dL 2.2-4.2 [facility] Serum glucose measurement (m ass/volume)Ordered By: Reji Kohli on 06-23-2025 Glucose [Mass/Vol] 107 mg/dL High 70-99 [facility] Serum or plasma alanine slaughter otransferase (ALT) measurementOrdered By: Reji Kohli on 06-23-2025 ALT [Catalytic activity/Vol] U/L <35 [facility] Serum or plasma albumin castro urement (mass/volume)Ordered By: Reji Kohli on 06-23-2025 Albumin [Mass/Vol] 4.3 g/dL 3.4-4.8 [facility] Serum or plasma albumin/glob ulin mass ratioOrdered By: Reji Kohli on 06-23-2025 Albumin/Globulin [Mass ratio] 1.9 {ratio} 0.9-2.4 [facility] Serum or plasma alkaline jasvir sphatase measurementOrdered By: Reji Kohli on 06-23-2025 ALP [Catalytic activity/Vol] 67 U/L 35-104 [facility] Serum or plasma calcium castro urement (mass/volume)Ordered By: Reji Kohli on 06-23-2025 Calcium [Mass/Vol] 9.2 mg/dL 7.6-11.0 [facility] Serum or plasma urea nitroge n measurement (mass/volume)Ordered By: Reji Kohli on 06-23-2025 Urea nitrogen [Mass/Vol] 21 mg/dL High 4-19 [facility] Sodium levelOrdered By: Allen Kohli on 06-23-2025 Sodium [Moles/Vol] 131 mmol/L Low 133-145 [facility] Total proteinOrdered By: Simeon Kohli on 06-23-2025 Protein [Mass/Vol] 6.6 g/dL 5.9-8.4 [facility] White blood cell (WBC) count Ordered By: Reji Kohli on 06-23-2025 WBC (Bld) [#/Vol] 6.2 10*3/uL 4.4-11.0 [facility] Surgery Visit Reporton 06-11 Surgery Visit Report [facility] [address] [place] [address] OFFICE VISIT Date of Service: 06/11/25 MR#: [id number] Acct: [id number] Name: MU LINCOLN Rep #: [id number] : 1940 Provider: Dr. 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 Is patient in pain?: No Allergies No Known Allergies Allergy (Verified 06/11/25 09:46) Medications ???Medication ???Instructions ???Recorded ???Confirmed ???Type alprazolam 0.25 mg tablet 0.125 mg PO QHS PRN PRN Insomnia 0 01/17/19 06/11/25 History levothyroxine 75 mcg tablet 75 mcg PO DAILY 01/17/19 06/11/25 History tacrolimus 1 mg capsule, 2 mg PO BID 01/17/19 06/11/25 Hist ory immediate-release (Prograf) cholecalciferol (vitamin D3) 25 25 mcg PO DAILY 06/11/23 06/11/25 History mcg (1,000 unit) tablet cinacalcet 30 mg tablet (Sensipar) 30 mg PO DAILY 06/11/23 06/11/25 History denosumab 60 mg/mL subcutaneous 60 mg subcut [id number] 06/11/23 History syringe (Prolia) magnesium oxide 250 mg PO QHS supplement 06/11/23 06/11/25 History mycophenolate mofetil 250 mg 500 mg PO BID 07/10/23 06/11/25 Hi story capsule famotidine 20 mg tablet 20 mg PO BID 05/29/24 06/11/25 His tory lisinopril 5 mg tablet 5 mg PO DAILY 05/29/24 06/11/25 Hi story ferrous sulfate 325 mg (65 mg 325 mg PO QDAY 07/13/24 06/11/25 H istory iron) tablet vitamins A,C,C-zmkw-jiuhmi 4,296 1 cap PO BID 07/13/24 06/11/25 His tory mcg-226 mg-90 mg capsule (PreserVision AREDS) Have you fallen in the past year?: No PFSH Medical History Screening for breast cancer Ductal carcinoma in situ (DCIS) of left breast Cancer Post-menopausal Alcohol use Thyroid disease Arthritis Low iron Anemia History of diverticulitis Non-smoker History of atrial fibrillation History of echocardiogram Cardiology follow-up encounter GERD (gastroesophageal reflux disease) Blepharochalasis Metatarsalgia of right foot Hiatal hernia Acute insomnia History of colon polyps Diverticulosis of colon Immunosuppression due to drug therapy Osteoporosis Renal transplant disorder Hypothyroidism Barretts esophagus Surgical History (Updated 06/15/25 @ 12:[address] Mandy Tse MD) S/P left mastectomy History of Petra fundoplication Hx of left cataract extraction Hx of right cataract extraction Hx of esophagogastroduodenoscopy Hx of colonoscopy Hx of hernia repair Hx of kidney transplant Hx of kidney transplant Arteriovenous fistula removed (2012) H/O parathyroidectomy (2012) Kidney transplanted (2010) Hx of tonsillectomy (1983) History of hysterectomy (1989) Family History Father Non-Hodgkin lymphoma Brother History of esophageal cancer Brother Diabetes CAD (coronary artery disease) Obesity Cirrhosis from fatty liver Kidney disease Son Non-Hodgkin lymphoma Social History Smoking Status: Never smoker alcohol intake: never substance use type: does not use HPI HPI HPI: 84-year-old female presents for 1 year follow-up status post left mastectomy for DCIS 06/09/2024. Patient denies any issues with her incision or other concerns.. Patient had a recent right breast mammography which was negative in April 2025. Patient states her PCP states she may had some enlarged lymph nodes on her left neck. Patient denies any recent colds or enlarged lymph nodes. Exam Const General: cooperative, healthy appearing and comfortable [facility] Other: No cervical lymphadenopathy appreciated on exam bilaterally Chest Other: Left mastectomy incision healing well, right breast no masses on exam or nipple discharge or breast pain. No axillary lymphadenopathy bilaterally Assessment and Plan Assessment and Plan (1) S/P left mastectomy: Status: Acute Comment: 06/09/2024 (2) Ductal carcinoma in situ (DCIS) of left breast: Status: Acute Plan Patient is doing well incision healing well. Follow-up in 6 months. Continue with annual screening mammography of right breast. Patient agreeable with plan. Mandy Tse M.D. Pager: [phone] [facility] [address] [place] [address], [facility] [address] [place] [address] Office: [phone] Coding Level of Care Code Off vis,est,level 3 Diagnoses S/P left mastectomy Z90.12 Ductal carcinoma in situ (DCIS) of left breast D05.12 Clinical Quality Measures Falls Risk Screeni (more content not included)... Normal [facility] Tacrolimus (Prograf)on 05-18 Tacrolimus (Bld) [Mass/Vol] 7.3 ng/mL Normal 5.0-20.0 [facility] Comment on above: Order Comment: Test( s) 701702-[id number] (FK506), Bloodwas developed and its performance characteristicsdetermined by [employer]. It has not been cleared or approvedby the Food and Drug Administration. Result Comment: Leopoldog et steady state trough concentration for Tacrolimus varies based on type of organ transplant immunosuppressive protocol and other patient specific factors. Tacrolimus trough concentrations should be interpreted in conjunction with clinical assessments of rejection and tolerability. Values obtained with different assay methods cannot be used interchangeably due to differences in assay methods and cross-reactivty with metabolites, nor should correction factors be applied. Therefore, consistent use of one assay for individual patients is recommended. Detection Limit = 0.5 ng/mL Performed by LC-MS/MS technology. Performed at: [address] [id number] Button Machine Operator: Su Iraheta MD, Phone: [phone] Performed By: #### L 509.1000, L501.5200, L3380.1000, L506.1000, L100.0500, L500.3600, L501.1930 #### [facility] [address] [place] [address]. [place], [place], [id number] Anion gap in Serum or Plasma on 05-14-2025 Anion gap [Moles/Vol] 11 mmol/L 5-15 [facility] BUN/creatinine ratioon 05-14 Urea nitrogen/Creatinine [Mass ratio] 21.3 mg/mg High 10-20 [facility] CBC-Complete Blood Cnt No Di ffon 05-14-2025 Erythrocyte distribution width (RBC) [Ratio] 14.8 % High 11.6-14.6 [facility] Comment on above: Performed By: #### L 509.1000, L501.5200, L3380.1000, L506.1000, L100.0500, L500.3600, L501.1930 #### [facility] [address] [place], [address] Hematocrit (Bld) [Volume fraction] 35.2 % Low 37-47 [facility] Comment on above: Performed By: #### L 509.1000, L501.5200, L3380.1000, L506.1000, L100.0500, L500.3600, L501.1930 #### [facility] [address] [place], [address] Hemoglobin (Bld) [Mass/Vol] 11.5 g/dL Low 12.0-15.0 [facility] Comment on above: Performed By: #### L 509.1000, L501.5200, L3380.1000, L506.1000, L100.0500, L500.3600, L501.1930 #### [facility] [address] [place], [address] MCH (RBC) [Entitic mass] 29.9 pg Normal 27.0-32.0 [facility] Comment on above: Performed By: #### L 509.1000, L501.5200, L3380.1000, L506.1000, L100.0500, L500.3600, L501.1930 #### [facility] [address] [place], [address] MCHC (RBC) [Mass/Vol] 32.7 g/dL Normal 32-36 [facility] Comment on above: Performed By: #### L 509.1000, L501.5200, L3380.1000, L506.1000, L100.0500, L500.3600, L501.1930 #### [facility] [address] [place], [address] MCV (RBC) [Entitic vol] 91.7 fL Normal 81-99 [facility] Comment on above: Performed By: #### L 509.1000, L501.5200, L3380.1000, L506.1000, L100.0500, L500.3600, L501.1930 #### [facility] [address] [place], [address] Platelet mean volume (Bld) [Entitic vol] 10.6 fL Normal 6.2-12.0 [facility] Comment on above: Performed By: #### L 509.1000, L501.5200, L3380.1000, L506.1000, L100.0500, L500.3600, L501.1930 #### [facility] [address] [place], [address] Platelets (Bld) [#/Vol] 253 10*3/uL Normal 150-450 [facility] Comment on above: Performed By: #### L 509.1000, L501.5200, L3380.1000, L506.1000, L100.0500, L500.3600, L501.1930 #### [facility] [address] [place], [address] RBC (Bld) [#/Vol] 3.84 10*6/uL Low 4.2-5.4 [facility] Comment on above: Performed By: #### L 509.1000, L501.5200, L3380.1000, L506.1000, L100.0500, L500.3600, L501.1930 #### [facility] [address] [place], [address] RDW SD 49.6 fl High 35.1-43.9 [facility] Comment on above: Performed By: #### L 509.1000, L501.5200, L3380.1000, L506.1000, L100.0500, L500.3600, L501.1930 #### [facility] [address] [place], [address] WBC (Bld) [#/Vol] 5.8 10*3/uL Normal 4.4-11.0 [facility] Comment on above: Performed By: #### L 509.1000, L501.5200, L3380.1000, L506.1000, L100.0500, L500.3600, L501.1930 #### [facility] [address] [place], [address] Carbon dioxide, total [Moles /volume] in Central venous bloodon 05-14-2025 CO2 [Moles/Vol] 19.6 mmol/L Low 21.0-32.0 [facility] Chloride assayon 05-14-2025 Chloride [Moles/Vol] 105 mmol/L 98-108 [facility] Erythrocyte distribution wid th ratioon 05-14-2025 Erythrocyte distribution width (RBC) [Ratio] 14.8 % High 11.6-14.6 [facility] Erythrocyte distribution wid th standard deviationon 05-14-2025 Erythrocyte distribution width (RBC) [Ratio] 49.6 fl High 35.1-43.9 [facility] Glomerular filtration rate ( GFR) estimation/1.73 sq m using serum, plasma, or whole bon 05-14-2025 GFR/1.73 sq M.predicted among non-blacks MDRD (S/P/Bld) [Vol rate/Area] 43 mL/min/{1.73_m2} Low >60 [facility] Comment on above: mL/min/1.73m2 CKD-EP I Creatinine Equation (2020) Hematocrit Auto (Bld) [Volum e fraction]on 05-14-2025 Hematocrit (Bld) [Volume fraction] 35.2 % Low 37-47 [facility] Hemoglobin measurementon Hemoglobin (Bld) [Mass/Vol] 11.5 g/dL Low 12.0-15.0 [facility] MCV (mean corpuscular volume ) determinationon 05-14-2025 MCV (RBC) [Entitic vol] 91.7 fL 81-99 [facility] Magnesiumon 05-14-2025 Magnesium [Mass/Vol] 2.1 mg/dL Normal 1.5-2.2 [facility] Comment on above: Performed By: #### L 509.1000, L501.5200, L3380.1000, L506.1000, L100.0500, L500.3600, L501.1930 #### [facility] [address] [place], [place], [id number] Magnesium measurement (mass/ volume)on 05-14-2025 Magnesium (Unsp spec) [Mass/Vol] 2.1 mg/dL 1.5-2.2 [facility] Mean corpuscular hemoglobin (MCH) determinationon 05-14-2025 MCH (RBC) [Entitic mass] 29.9 pg 27.0-32.0 [facility] Mean corpuscular hemoglobin concentration (MCHC) determinationon 05-14-2025 MCHC (RBC) [Mass/Vol] 32.7 g/dL 32-36 [facility] Mean platelet volume determi nationon 05-14-2025 Platelet mean volume (Bld) [Entitic vol] 10.6 fL 6.2-12.0 [facility] PTHINon 05-14-2025 PTH 100 pg/mL High 11-61 [facility] Comment on above: Performed By: #### L 509.1000, L501.5200, L3380.1000, L506.1000, L100.0500, L500.3600, L501.1930 #### [facility] [address] [place], [place], [id number] Platelet counton 05-14-2025 Platelets (Bld) [#/Vol] 253 10*3/uL 150-450 [facility] Potassium measurement (mass/ volume)on 05-14-2025 Potassium (Unsp spec) [Mass/Vol] 4.9 mmol/L 3.3-5.1 [facility] Protein, Urine (Random)on Protein (U) [Mass/Vol] 107.0 mg/dL High 0.0-12.0 [facility] Comment on above: Performed By: #### L 509.1000, L501.5200, L3380.1000, L506.1000, L100.0500, L500.3600, L501.1930 #### [facility] [address] [place], [address] RBC Auto (Bld) [#/Vol]on RBC (Bld) [#/Vol] 3.84 10*6/uL Low 4.2-5.4 [facility] Renal Profileon 05-14-2025 Albumin [Mass/Vol] 3.9 g/dL Normal 3.4-4.8 [facility] Comment on above: Performed By: #### L 509.1000, L501.5200, L3380.1000, L506.1000, L100.0500, L500.3600, L501.1930 #### [facility] [address] [place], [address] BUN/CRE 21.3 RATIO High 10-20 [facility] Comment on above: Performed By: #### L 509.1000, L501.5200, L3380.1000, L506.1000, L100.0500, L500.3600, L501.1930 #### [facility] [address] [place], [address] Calcium [Mass/Vol] 9.6 mg/dL Normal 7.6-11.0 [facility] Comment on above: Performed By: #### L 509.1000, L501.5200, L3380.1000, L506.1000, L100.0500, L500.3600, L501.1930 #### [facility] [address] [place], [address] Chloride [Moles/Vol] 105 mmol/L Normal 98-108 [facility] Comment on above: Performed By: #### L 509.1000, L501.5200, L3380.1000, L506.1000, L100.0500, L500.3600, L501.1930 #### [facility] [address] [place], [address] CO2 [Moles/Vol] 19.6 mmol/L Low 21.0-32.0 [facility] Comment on above: Performed By: #### L 509.1000, L501.5200, L3380.1000, L506.1000, L100.0500, L500.3600, L501.1930 #### [facility] [address] [place], [address] Creatinine [Mass/Vol] 1.24 mg/dL High 0.70-1.20 [facility] Comment on above: Performed By: #### L 509.1000, L501.5200, L3380.1000, L506.1000, L100.0500, L500.3600, L501.1930 #### [facility] [address] [place], [address] GAP 11 Normal 5-15 [facility] Comment on above: Performed By: #### L 509.1000, L501.5200, L3380.1000, L506.1000, L100.0500, L500.3600, L501.1930 #### [facility] [address] [place], [address] GFR/1.73 sq M.predicted among non-blacks MDRD (S/P/Bld) [Vol rate/Area] 43 mL/min/{1.73_m2} Low >60 [facility] Comment on above: Result Comment: mL/m in/1.73m2 CKD-EPI Creatinine Equation (2020) Performed By: #### L 509.1000, L501.5200, L3380.1000, L506.1000, L100.0500, L500.3600, L501.1930 #### [facility] [address] [place], [address] Glucose [Mass/Vol] 96 mg/dL Normal 70-99 [facility] Comment on above: Performed By: #### L 509.1000, L501.5200, L3380.1000, L506.1000, L100.0500, L500.3600, L501.1930 #### [facility] [address] [place], [address] Phosphate [Mass/Vol] 4.1 mg/dL Normal 2.7-4.5 [facility] Comment on above: Performed By: #### L 509.1000, L501.5200, L3380.1000, L506.1000, L100.0500, L500.3600, L501.1930 #### [facility] [address] [place], [address] Potassium [Moles/Vol] 4.9 mmol/L Normal 3.3-5.1 [facility] Comment on above: Performed By: #### L 509.1000, L501.5200, L3380.1000, L506.1000, L100.0500, L500.3600, L501.1930 #### [facility] [address] [place], [address] Sodium [Moles/Vol] 135 mmol/L Normal 133-145 [facility] Comment on above: Performed By: #### L 509.1000, L501.5200, L3380.1000, L506.1000, L100.0500, L500.3600, L501.1930 #### [facility] [address] [place], [address] Urea nitrogen [Mass/Vol] 26 mg/dL High 01-30 [facility] Comment on above: Performed By: #### L 509.1000, L501.5200, L3380.1000, L506.1000, L100.0500, L500.3600, L501.1930 #### [facility] [place], [address] Serum creatinine measurement (mass/volume)on 05-14-2025 Creatinine [Mass/Vol] 1.24 mg/dL High 0.70-1.20 [facility] Serum glucose measurement (m ass/volume)on 05-14-2025 Glucose [Mass/Vol] 96 mg/dL 70-99 [facility] Serum or plasma albumin castro urement (mass/volume)on 05-14-2025 Albumin [Mass/Vol] 3.9 g/dL 3.4-4.8 [facility] Serum or plasma calcium castro urement (mass/volume)on 05-14-2025 Calcium [Mass/Vol] 9.6 mg/dL 7.6-11.0 [facility] Serum or plasma urea nitroge n measurement (mass/volume)on 05-14-2025 Urea nitrogen [Mass/Vol] 26 mg/dL High 01-30 [facility] Sodium levelon 05-14-2025 Sodium [Moles/Vol] 135 mmol/L 133-145 [facility] Urine protein measurement (m ass/volume)on 05-14-2025 Protein (U) [Mass/Vol] 107.0 mg/dL High 0.0-12.0 [facility] Vitamin D,25 Hydroxyon 05-14 Vitamin D 25-OH 67.4 ng/mL Normal 30-100 [facility] Comment on above: Result Comment: Jess min D Status Deficiency: <20 ng/mL (50nmol/L) Insufficiency: 20-30 ng/mL (50-75 nmol/L) Sufficiency: 30-100 ng/mL (75-250 nmol/L) Toxicity: >100 ng/mL (>250 nmol/L) Performed By: #### L 509.1000, L501.5200, L3380.1000, L506.1000, L100.0500, L500.3600, L501.1930 #### [facility] [address] [place], [place], [address] White blood cell (WBC) count on 05-14-2025 WBC (Bld) [#/Vol] 5.8 10*3/uL 4.4-11.0 [facility] Breast imaging reportOrdered By: Snehal Morgan on 04-21-2025 Study report [facility] Imaging Services [address] [place] [address] SCREEN MAMM (CAD) W/CECILIA UNI R MR#: [id number] Acct: [id number] Name: MU LINCOLN Rep #: [id number] : 1940 F 84 From: Radha Morgan MD PCP: Dr. Osman See MD Status: [facility] Study:SCREEN MAMM (CAD) W/CECILIA UNI R Date of Exam: 04/21/25 Exam# [id number] Ordering Dr: Alisha Hdz NP EXTRAS CASTING DIRECTOR-C EXAM: SCREEN MAMM (CAD) W/CECILIA UNI R DATE: 04/21/2025 CLINICAL HISTORY: F, Age 84 y/o , SCREENING FOR BREAST CANCER TECHNIQUE: SCREEN MAMM (CAD) W/CECILIA UNI R COMPARISON: Prior exam(s) dated 04/21/2024, 04/19/2022. FINDINGS: TISSUE DENSITY: The breasts are heterogeneously dense, which may obscure small masses. The mammogram demonstrates that the patient has dense breasts. Supplemental screening with whole breast ultrasound or MRI may be considered for further evaluation. Unilateral Right Breast Mammographic Findings: No significant masses, calcifications or other abnormalities are identified. BI/SCREEN MAMM (CAD) W/CECILIA UNI R IMPRESSION: There is no mammographic evidence of malignancy. OVERALL FINAL ASSESSMENT BI-RADS 1: NEGATIVE. RECOMMEND ANNUAL MAMMOGRAPHIC SCREENING. RECOMMENDATION: Routine annual follow-up in 1 Year A letter with findings and recommendations will be mailed to the patient. Reading Location: [facility] CC: TIMO Abdalla; Dr. Osman See MD ~ Extrusion Technician: Signed [facility] SCREEN MAMM (CAD) W/CECILIA UNI Angel 04-21-2025 SCREEN MAMM (CAD) W/CECILIA UNI R [facility] Imaging Services [address] [place] [address] SCREEN MAMM (CAD) W/CECILIA UNI R MR#: [id number] Acct: [id number] Name: MU LINCOLN Rep #: [id number] : 1940 F 84 From: Snehal Morgan MD PCP: Dr. Osman See MD Status: REG CLI Study: SCREEN MAMM (CAD) W/CECILIA UNI R Date of Exam: 0 04/21/25 Exam# [id number] Ordering Dr: Alisha Abdalla NP EXTRAS CASTING DIRECTOR -Isaura EXAM: SCREEN MAMM (CAD) W/CECILIA UNI R DATE: 04/21/2025 CLINICAL HISTORY: F, Age 84 y/o , SCREENING FOR BREAST CANCER TECHNIQUE: SCREEN MAMM (CAD) W/CECILIA UNI R COMPARISON: Prior exam(s) dated 04/21/2024, 04/19/2022. FINDINGS: TISSUE DENSITY: The breasts are heterogeneously dense, which may obscure small masses. The mammogram demonstrates that the patient has dense breasts. Supplemental screening with whole breast ultrasound or MRI may be considered for further evaluation. Unilateral Right Breast Mammographic Findings: No significant masses, calcifications or other abnormalities are identified. BI/SCREEN MAMM (CAD) W/CECILIA UNI R IMPRESSION: There is no mammographic evidence of malignancy. OVERALL FINAL ASSESSMENT BI-RADS 1: NEGATIVE. RECOMMEND ANNUAL MAMMOGRAPHIC SCREENING. RECOMMENDATION: Routine annual follow-up in 1 Year A letter with findings and recommendations will be mailed to the patient. Reading Location: [facility] CC: TIMO Abdalla; Dr. Osman See MD Extrusion Technician: Signed Normal [facility] Tacrolimus (Prograf)on 02-17 Tacrolimus (Bld) [Mass/Vol] 7.9 ng/mL Normal 5.0-20.0 [facility] Comment on above: Order Comment: Test( s) 650424-[id number] (FK506), Bloodwas developed and its performance characteristicsdetermined by [employer]. It has not been cleared or approvedby the Food and Drug Administration. Result Comment: Targ et steady state trough concentration for Tacrolimus varies based on type of organ transplant immunosuppressive protocol and other patient specific factors. Tacrolimus trough concentrations should be interpreted in conjunction with clinical assessments of rejection and tolerability. Values obtained with different assay methods cannot be used interchangeably due to differences in assay methods and cross-reactivty with metabolites, nor should correction factors be applied. Therefore, consistent use of one assay for individual patients is recommended. Detection Limit = 0.5 ng/mL Performed by LC-MS/MS technology. Performed at: [address] [id number] Button Machine Operator: Su Iraheta MD, Phone: [phone] Performed By: #### L 509.1000, L501.5200, L3380.1000, L506.1000, L100.0500, L500.3600, L501.1930 #### [facility] [address] [place], [address] Anion gap in Serum or Plasma on 02-12-2025 Anion gap [Moles/Vol] 11 mmol/L 5-15 [facility] Automated blood erythrocyte counton 02-12-2025 RBC (Bld) [#/Vol] 4.11 10*6/uL Low 4.2-5.4 [facility] Comment on above: Performed By: #### L 509.1000, L501.5200, L3380.1000, L506.1000, L100.0500, L500.3600, L501.1930 #### [facility] [address] [place], [place], [id number] Automated blood hematocrit ( percentage)on 02-12-2025 Hematocrit (Bld) [Volume fraction] 37.4 % Normal 37-47 [facility] Comment on above: Performed By: #### L 509.1000, L501.5200, L3380.1000, L506.1000, L100.0500, L500.3600, L501.1930 #### [facility] [address] [place], [address] BUN/creatinine ratioon 02-12 Urea nitrogen/Creatinine [Mass ratio] 17.3 mg/mg 10-20 [facility] CBC-Complete Blood Cnt No Di ffon 02-12-2025 RDW SD 48.7 fl High 35.1-43.9 [facility] Comment on above: Performed By: #### L 509.1000, L501.5200, L3380.1000, L506.1000, L100.0500, L500.3600, L501.1930 #### [facility] [address] [place], [address] Carbon dioxide, total [Moles /volume] in Central venous bloodon 02-12-2025 CO2 [Moles/Vol] 21.0 mmol/L Normal 21.0-32.0 [facility] Comment on above: Performed By: #### L 509.1000, L501.5200, L3380.1000, L506.1000, L100.0500, L500.3600, L501.1930 #### [facility] [address] [place], [address] Chloride assayon 02-12-2025 Chloride [Moles/Vol] 103 mmol/L Normal 98-108 [facility] Comment on above: Performed By: #### L 509.1000, L501.5200, L3380.1000, L506.1000, L100.0500, L500.3600, L501.1930 #### [facility] [address] [place], [address] Erythrocyte distribution wid th ratioon 02-12-2025 Erythrocyte distribution width (RBC) [Ratio] 14.6 % Normal 11.6-14.6 [facility] Comment on above: Performed By: #### L 509.1000, L501.5200, L3380.1000, L506.1000, L100.0500, L500.3600, L501.1930 #### [facility] [address] [place], [address] Erythrocyte distribution wid th standard deviationon 02-12-2025 Erythrocyte distribution width (RBC) [Ratio] 48.7 fl High 35.1-43.9 [facility] Glomerular filtration rate ( GFR) estimation/1.73 sq m using serum, plasma, or whole bon 02-12-2025 GFR/1.73 sq M.predicted among non-blacks MDRD (S/P/Bld) [Vol rate/Area] 41 mL/min/{1.73_m2} Low >60 [facility] Comment on above: mL/min/1.73m2 CKD-EP I Creatinine Equation (2020) Result Comment: mL/m in/1.73m2 CKD-EPI Creatinine Equation (2020) Performed By: #### L 509.1000, L501.5200, L3380.1000, L506.1000, L100.0500, L500.3600, L501.1930 #### [facility] [address] [place], [address] Hemoglobin measurementon Hemoglobin (Bld) [Mass/Vol] 12.1 g/dL Normal 12.0-15.0 [facility] Comment on above: Performed By: #### L 509.1000, L501.5200, L3380.1000, L506.1000, L100.0500, L500.3600, L501.1930 #### [facility] [address] [place], [address] MCV (mean corpuscular volume ) determinationon 02-12-2025 MCV (RBC) [Entitic vol] 91.0 fL Normal 81-99 [facility] Comment on above: Performed By: #### L 509.1000, L501.5200, L3380.1000, L506.1000, L100.0500, L500.3600, L501.1930 #### [facility] [address] [place], [address] Magnesiumon 02-12-2025 Magnesium [Mass/Vol] 1.9 mg/dL Normal 1.5-2.2 [facility] Comment on above: Performed By: #### L 509.1000, L501.5200, L3380.1000, L506.1000, L100.0500, L500.3600, L501.1930 #### [facility] [address] [place], [address] Magnesium measurement (mass/ volume)on 02-12-2025 Magnesium (Unsp spec) [Mass/Vol] 1.9 mg/dL 1.5-2.2 [facility] Mean corpuscular hemoglobin (MCH) determinationon 02-12-2025 MCH (RBC) [Entitic mass] 29.4 pg Normal 27.0-32.0 [facility] Comment on above: Performed By: #### L 509.1000, L501.5200, L3380.1000, L506.1000, L100.0500, L500.3600, L501.1930 #### [facility] [address] [place], [address] Mean corpuscular hemoglobin concentration (MCHC) determinationon 02-12-2025 MCHC (RBC) [Mass/Vol] 32.4 g/dL Normal 32-36 [facility] Comment on above: Performed By: #### L 509.1000, L501.5200, L3380.1000, L506.1000, L100.0500, L500.3600, L501.1930 #### [facility] [address] [place], [address] Mean platelet volume determi nationon 02-12-2025 Platelet mean volume (Bld) [Entitic vol] 10.1 fL Normal 6.2-12.0 [facility] Comment on above: Performed By: #### L 509.1000, L501.5200, L3380.1000, L506.1000, L100.0500, L500.3600, L501.1930 #### [facility] [address] [place], [address] PTHINon 02-12-2025 PTH 168 pg/mL High 11-61 [facility] Comment on above: Performed By: #### L 509.1000, L501.5200, L3380.1000, L506.1000, L100.0500, L500.3600, L501.1930 #### [facility] [address] [place], [address] Platelet counton 02-12-2025 Platelets (Bld) [#/Vol] 250 10*3/uL Normal 150-450 [facility] Comment on above: Performed By: #### L 509.1000, L501.5200, L3380.1000, L506.1000, L100.0500, L500.3600, L501.1930 #### [facility] [address] [place], [address] Potassium measurement (mass/ volume)on 02-12-2025 Potassium (Unsp spec) [Mass/Vol] 4.6 mmol/L 3.3-5.1 [facility] Protein, Urine (Random)on Protein (U) [Mass/Vol] 123.0 mg/dL High 0.0-12.0 [facility] Comment on above: Performed By: #### L 509.1000, L501.5200, L3380.1000, L506.1000, L100.0500, L500.3600, L501.1930 #### [facility] [address] [place], [address] Renal Profileon 02-12-2025 BUN/CRE 17.3 RATIO Normal 10-20 [facility] Comment on above: Performed By: #### L 509.1000, L501.5200, L3380.1000, L506.1000, L100.0500, L500.3600, L501.1930 #### [facility] [address] [place], [address] GAP 11 Normal 5-15 [facility] Comment on above: Performed By: #### L 509.1000, L501.5200, L3380.1000, L506.1000, L100.0500, L500.3600, L501.1930 #### [facility] [address] [place], [address] Phosphate [Mass/Vol] 4.1 mg/dL Normal 2.7-4.5 [facility] Comment on above: Performed By: #### L 509.1000, L501.5200, L3380.1000, L506.1000, L100.0500, L500.3600, L501.1930 #### [facility] [address] [place], [address] Potassium [Moles/Vol] 4.6 mmol/L Normal 3.3-5.1 [facility] Comment on above: Performed By: #### L 509.1000, L501.5200, L3380.1000, L506.1000, L100.0500, L500.3600, L501.1930 #### [facility] [address] [place], [address] Serum creatinine measurement (mass/volume)on 02-12-2025 Creatinine [Mass/Vol] 1.28 mg/dL High 0.70-1.20 [facility] Comment on above: Performed By: #### L 509.1000, L501.5200, L3380.1000, L506.1000, L100.0500, L500.3600, L501.1930 #### [facility] [address] [place], [address] Serum glucose measurement (m ass/volume)on 02-12-2025 Glucose [Mass/Vol] 95 mg/dL Normal 70-99 [facility] Comment on above: Performed By: #### L 509.1000, L501.5200, L3380.1000, L506.1000, L100.0500, L500.3600, L501.1930 #### [facility] [address] [place], [address] Serum or plasma albumin castro urement (mass/volume)on 02-12-2025 Albumin [Mass/Vol] 3.9 g/dL Normal 3.4-4.8 [facility] Comment on above: Performed By: #### L 509.1000, L501.5200, L3380.1000, L506.1000, L100.0500, L500.3600, L501.1930 #### [facility] [address] [place], [address] Serum or plasma calcium castro urement (mass/volume)on 02-12-2025 Calcium [Mass/Vol] 8.0 mg/dL Normal 7.6-11.0 [facility] Comment on above: Performed By: #### L 509.1000, L501.5200, L3380.1000, L506.1000, L100.0500, L500.3600, L501.1930 #### [facility] [address] [place], [address] Serum or plasma urea nitroge n measurement (mass/volume)on 02-12-2025 Urea nitrogen [Mass/Vol] 22 mg/dL High 4-19 [facility] Comment on above: Performed By: #### L 509.1000, L501.5200, L3380.1000, L506.1000, L100.0500, L500.3600, L501.1930 #### [facility] [address] [place], [address] Sodium levelon 02-12-2025 Sodium [Moles/Vol] 136 mmol/L Normal 133-145 [facility] Comment on above: Performed By: #### L 509.1000, L501.5200, L3380.1000, L506.1000, L100.0500, L500.3600, L501.1930 #### [facility] [address] [place], [address] Urine protein measurement (m ass/volume)on 02-12-2025 Protein (U) [Mass/Vol] 123.0 mg/dL High 0.0-12.0 [facility] Vitamin D,25 Hydroxyon 02-12 Vitamin D 25-OH 62.5 ng/mL Normal 30-100 [facility] Comment on above: Result Comment: Jess min D Status Deficiency: <20 ng/mL (50nmol/L) Insufficiency: 20-30 ng/mL (50-75 nmol/L) Sufficiency: 30-100 ng/mL (75-250 nmol/L) Toxicity: >100 ng/mL (>250 nmol/L) Performed By: #### L 509.1000, L501.5200, L3380.1000, L506.1000, L100.0500, L500.3600, L501.1930 #### [facility] [address] [place], [address] White blood cell (WBC) count on 02-12-2025 WBC (Bld) [#/Vol] 5.4 10*3/uL Normal 4.4-11.0 [facility] Comment on above: Performed By: #### L 509.1000, L501.5200, L3380.1000, L506.1000, L100.0500, L500.3600, L501.1930 #### [facility] [address] [place], [address] Absolute lymphocyte countOrd ered By: Alisha Abdalla on 12-16-2024 Lymphocytes Auto (Unsp spec) [#/Vol] 1.18 10*3/uL 0.83-4.51 [facility] Absolute neutrophil countOrd ered By: Alisha Abdalla on 12-16-2024 Neutrophils (Bld) [#/Vol] 3.9 10*3/uL 2.0-7.7 [facility] Anion gap in Serum or Plasma Ordered By: Alisha Abdalla on 12-16-2024 Anion gap [Moles/Vol] 14 mmol/L - [facility] Automated lymphocyte count a s percentage of total leukocytesOrdered By: Alisha Abdalla on 12-16-2024 Lymphocytes/100 WBC Auto (Unsp spec) 19.0 % [facility] BUN/creatinine ratioOrdered By: Alisha Abdalla on 12-16-2024 Urea nitrogen/Creatinine [Mass ratio] 18.1 mg/mg - [facility] Basophil percentageOrdered B y: Alisha Abdalla on 12-16-2024 Basophils/100 WBC (Bld) 0.3 % 0- [facility] Bilirubin, totalOrdered By: Alisha Abdalla on 12-16-2024 Bilirubin [Mass/Vol] 0.35 mg/dL 0.00-1.30 [facility] CBC W/Diff, Automatedon Absolute Lymph 1.18 X10 3/uL Normal 0.83-4.51 [facility] Comment on above: Performed By: #### L 509.1000, L501.5200, L3380.1000, L506.1000, L100.0500, L500.3600, L501.1930 #### [facility] [address] [place], [address] Absolute Neut 3.9 X10 3/uL Normal 2.0-7.7 [facility] Comment on above: Performed By: #### L 509.1000, L501.5200, L3380.1000, L506.1000, L100.0500, L500.3600, L501.1930 #### [facility] [address] [facility] [place], [address] Basophils/100 WBC (Bld) 0.3 % Normal 0-1 [facility] Comment on above: Performed By: #### L 509.1000, L501.5200, L3380.1000, L506.1000, L100.0500, L500.3600, L501.1930 #### [facility] [address] [place], [address] Eosinophils/100 WBC (Bld) 2.9 % Normal 0-5 [facility] Comment on above: Performed By: #### L 509.1000, L501.5200, L3380.1000, L506.1000, L100.0500, L500.3600, L501.1930 #### [facility] [address] [place], [address] Erythrocyte distribution width (RBC) [Ratio] 15.9 % High 11.6-14.6 [facility] Comment on above: Performed By: #### L 509.1000, L501.5200, L3380.1000, L506.1000, L100.0500, L500.3600, L501.1930 #### [facility] [address] [place], [address] Hematocrit (Bld) [Volume fraction] 36.4 % Low 37-47 [facility] Comment on above: Performed By: #### L 509.1000, L501.5200, L3380.1000, L506.1000, L100.0500, L500.3600, L501.1930 #### [facility] [address] [place], [address] Hemoglobin (Bld) [Mass/Vol] 11.9 g/dL Low 12.0-15.0 [facility] Comment on above: Performed By: #### L 509.1000, L501.5200, L3380.1000, L506.1000, L100.0500, L500.3600, L501.1930 #### [facility] [address] [place], [address] IG% 0.500 Normal 0.0-0.9 [facility] Comment on above: Result Comment: IG% - Immature Granulocytes (promyelocytes, myelocytes and metamyelocytes) > 1% indicates that a LEFT SHIFT is Present. Performed By: #### L 509.1000, L501.5200, L3380.1000, L506.1000, L100.0500, L500.3600, L501.1930 #### [facility] [address] [place], [address] Lymphocytes/100 WBC (Bld) 19.0 % Normal 19-41 [facility] Comment on above: Performed By: #### L 509.1000, L501.5200, L3380.1000, L506.1000, L100.0500, L500.3600, L501.1930 #### [facility] [address] [place], [address] MCH (RBC) [Entitic mass] 29.7 pg Normal 27.0-32.0 [facility] Comment on above: Performed By: #### L 509.1000, L501.5200, L3380.1000, L506.1000, L100.0500, L500.3600, L501.1930 #### [facility] [address] [place], [address] MCHC (RBC) [Mass/Vol] 32.7 g/dL Normal 32-36 [facility] Comment on above: Performed By: #### L 509.1000, L501.5200, L3380.1000, L506.1000, L100.0500, L500.3600, L501.1930 #### [facility] [address] [place], [address] MCV (RBC) [Entitic vol] 90.8 fL Normal 81-99 [facility] Comment on above: Performed By: #### L 509.1000, L501.5200, L3380.1000, L506.1000, L100.0500, L500.3600, L501.1930 #### [facility] [address] [place], [address] Monocytes/100 WBC (Bld) 13.8 % High 0-10 [facility] Comment on above: Performed By: #### L 509.1000, L501.5200, L3380.1000, L506.1000, L100.0500, L500.3600, L501.1930 #### [facility] [address] [place], [address] Neutrophils/100 WBC (Bld) 63.5 % Normal 47-70 [facility] Comment on above: Performed By: #### L 509.1000, L501.5200, L3380.1000, L506.1000, L100.0500, L500.3600, L501.1930 #### [facility] [address] [place], [address] Nucleated RBC (Bld) [#/Vol] 0 10*3/uL Normal 0-5 [facility] Comment on above: Performed By: #### L 509.1000, L501.5200, L3380.1000, L506.1000, L100.0500, L500.3600, L501.1930 #### [facility] [address] [place], [address] Platelet mean volume (Bld) [Entitic vol] 9.8 fL Normal 6.2-12.0 [facility] Comment on above: Performed By: #### L 509.1000, L501.5200, L3380.1000, L506.1000, L100.0500, L500.3600, L501.1930 #### [facility] [address] [place], [address] Platelets (Bld) [#/Vol] 234 10*3/uL Normal 150-450 [facility] Comment on above: Performed By: #### L 509.1000, L501.5200, L3380.1000, L506.1000, L100.0500, L500.3600, L501.1930 #### [facility] [address] [place], [address] RBC (Bld) [#/Vol] 4.01 10*6/uL Low 4.2-5.4 [facility] Comment on above: Performed By: #### L 509.1000, L501.5200, L3380.1000, L506.1000, L100.0500, L500.3600, L501.1930 #### [facility] [address] [place], [address] RDW SD 52.8 fl High 35.1-43.9 [facility] Comment on above: Performed By: #### L 509.1000, L501.5200, L3380.1000, L506.1000, L100.0500, L500.3600, L501.1930 #### [facility] [address] [place], [address] WBC (Bld) [#/Vol] 6.2 10*3/uL Normal 4.4-11.0 [facility] Comment on above: Performed By: #### L 509.1000, L501.5200, L3380.1000, L506.1000, L100.0500, L500.3600, L501.1930 #### [facility] [address] [place], [address] Carbon dioxide, total [Moles /volume] in Central venous bloodOrdered By: Alisha Abdalla on 12-16-2024 CO2 [Moles/Vol] 19.1 mmol/L Low 21.0-32.0 [facility] Chloride assayOrdered By: Pedrito Abdalla on 12-16-2024 Chloride [Moles/Vol] 102 mmol/L 98-108 [facility] Comprehensive Metabolic Prof ilon 12-16-2024 Albumin [Mass/Vol] 4.1 g/dL Normal 3.4-4.8 [facility] Comment on above: Performed By: #### L 509.1000, L501.5200, L3380.1000, L506.1000, L100.0500, L500.3600, L501.1930 #### [facility] [address] [place], [address] Albumin/Globulin [Mass ratio] 1.7 {ratio} Normal 0.9-2.4 [facility] Comment on above: Performed By: #### L 509.1000, L501.5200, L3380.1000, L506.1000, L100.0500, L500.3600, L501.1930 #### [facility] [address] [place], [address] ALK PHOS 95 U/L Normal 35-104 [facility] Comment on above: Performed By: #### L 509.1000, L501.5200, L3380.1000, L506.1000, L100.0500, L500.3600, L501.1930 #### [facility] [address] [place], [address] ALT [Catalytic activity/Vol] 6 U/L Normal <=34 [facility] Comment on above: Performed By: #### L 509.1000, L501.5200, L3380.1000, L506.1000, L100.0500, L500.3600, L501.1930 #### [facility] [address] [place], [address] AST [Catalytic activity/Vol] 14 U/L Normal <=31 [facility] Comment on above: Performed By: #### L 509.1000, L501.5200, L3380.1000, L506.1000, L100.0500, L500.3600, L501.1930 #### [facility] [address] [place], [address] Bilirubin [Mass/Vol] 0.35 mg/dL Normal 0.00-1.30 [facility] Comment on above: Performed By: #### L 509.1000, L501.5200, L3380.1000, L506.1000, L100.0500, L500.3600, L501.1930 #### [facility] [address] [place], [address] BUN/CRE 18.1 RATIO Normal 10-20 [facility] Comment on above: Performed By: #### L 509.1000, L501.5200, L3380.1000, L506.1000, L100.0500, L500.3600, L501.1930 #### [facility] [address] [place], [address] Calcium [Mass/Vol] 8.0 mg/dL Normal 7.6-11.0 [facility] Comment on above: Performed By: #### L 509.1000, L501.5200, L3380.1000, L506.1000, L100.0500, L500.3600, L501.1930 #### [facility] [address] [place], [address] Chloride [Moles/Vol] 102 mmol/L Normal 98-108 [facility] Comment on above: Performed By: #### L 509.1000, L501.5200, L3380.1000, L506.1000, L100.0500, L500.3600, L501.1930 #### [facility] [address] [place], [address] CO2 [Moles/Vol] 19.1 mmol/L Low 21.0-32.0 [facility] Comment on above: Performed By: #### L 509.1000, L501.5200, L3380.1000, L506.1000, L100.0500, L500.3600, L501.1930 #### [facility] [address] [place], [address] Creatinine [Mass/Vol] 1.29 mg/dL High 0.70-1.20 [facility] Comment on above: Performed By: #### L 509.1000, L501.5200, L3380.1000, L506.1000, L100.0500, L500.3600, L501.1930 #### [facility] [address] [place], [address] ECRCL 23.32 ml/min Low 50-250 [facility] Comment on above: Performed By: #### L 509.1000, L501.5200, L3380.1000, L506.1000, L100.0500, L500.3600, L501.1930 #### [facility] [address] [place], [address] GAP 14 Normal 5-15 [facility] Comment on above: Performed By: #### L 509.1000, L501.5200, L3380.1000, L506.1000, L100.0500, L500.3600, L501.1930 #### [facility] [address] [place], [address] GFR/1.73 sq M.predicted among non-blacks MDRD (S/P/Bld) [Vol rate/Area] 41 mL/min/{1.73_m2} Low >60 [facility] Comment on above: Result Comment: mL/m in/1.73m2 CKD-EPI Creatinine Equation (2020) Performed By: #### L 509.1000, L501.5200, L3380.1000, L506.1000, L100.0500, L500.3600, L501.1930 #### [facility] [address] [place], [address] Globulin (S) [Mass/Vol] 2.4 g/dL Normal 2.2-4.2 [facility] Comment on above: Performed By: #### L 509.1000, L501.5200, L3380.1000, L506.1000, L100.0500, L500.3600, L501.1930 #### [facility] [address] [place], [address] Glucose [Mass/Vol] 93 mg/dL Normal 70-99 [facility] Comment on above: Performed By: #### L 509.1000, L501.5200, L3380.1000, L506.1000, L100.0500, L500.3600, L501.1930 #### [facility] [address] [place], [address] Potassium [Moles/Vol] 4.7 mmol/L Normal 3.3-5.1 [facility] Comment on above: Performed By: #### L 509.1000, L501.5200, L3380.1000, L506.1000, L100.0500, L500.3600, L501.1930 #### [facility] [address] [place], [address] Sodium [Moles/Vol] 136 mmol/L Normal 133-145 [facility] Comment on above: Performed By: #### L 509.1000, L501.5200, L3380.1000, L506.1000, L100.0500, L500.3600, L501.1930 #### [facility] [address] [place], [address] T PROT 6.5 g/dL Normal 5.9-8.4 [facility] Comment on above: Performed By: #### L 509.1000, L501.5200, L3380.1000, L506.1000, L100.0500, L500.3600, L501.1930 #### [facility] [address] [place], [address] Urea nitrogen [Mass/Vol] 23 mg/dL High 4-19 [facility] Comment on above: Performed By: #### L 509.1000, L501.5200, L3380.1000, L506.1000, L100.0500, L500.3600, L501.1930 #### [facility] [place], [address] Eosinophil percentageOrdered By: Alisha Abdalla on 12-16-2024 Eosinophils/100 WBC (Bld) 2.9 % 0-5 [facility] Erythrocyte distribution wid th ratioOrdered By: Alisha Rm on 12-16-2024 Erythrocyte distribution width (RBC) [Ratio] 15.9 % High 11.6-14.6 [facility] Erythrocyte distribution wid th standard deviationOrdered By: Centra HealthRm on 12-16-2024 Erythrocyte distribution width (RBC) [Ratio] 52.8 fl High 35.1-43.9 [facility] Glomerular filtration rate ( GFR) estimation/1.73 sq m using serum, plasma, or whole bOrdered By: Alishalavonne Abdalla on 12-16-2024 GFR/1.73 sq M.predicted among non-blacks MDRD (S/P/Bld) [Vol rate/Area] 41 mL/min/{1.73_m2} Low >60 [facility] Comment on above: mL/min/1.73m2 CKD-EP I Creatinine Equation (2020) Hematocrit Auto (Bld) [Volum e fraction]Ordered By: Alisha Abdalla on 12-16-2024 Hematocrit (Bld) [Volume fraction] 36.4 % Low 37-47 [facility] Hemoglobin measurementOrdere d By: Alisha Abdalla on 12-16-2024 Hemoglobin (Bld) [Mass/Vol] 11.9 g/dL Low 12.0-15.0 [facility] Immature granulocytes/100 WB C Auto (Bld)Ordered By: Alisha Abdalla on 12-16-2024 Immature granulocytes/100 WBC (Bld) 0.500 % 0.0-0.9 [facility] Comment on above: IG% - Immature Granu locytes (promyelocytes, myelocytes and metamyelocytes) > 1% indicates that a LEFT SHIFT is Present. Laboratory - Chemistry and C hemistry - challengeOrdered By: Alisha Abdalla on 12-16-2024 AST [Catalytic activity/Vol] 14 U/L <32 [facility] MCV (mean corpuscular volume ) determinationOrdered By: Alisha Abdalla on 12-16-2024 MCV (RBC) [Entitic vol] 90.8 fL 81-99 [facility] Mean corpuscular hemoglobin (MCH) determinationOrdered By: Alisha Abdalla on 12-16-2024 MCH (RBC) [Entitic mass] 29.7 pg 27.0-32.0 [facility] Mean corpuscular hemoglobin concentration (MCHC) determinationOrdered By: Alisha Abdalla on 12-16-2024 MCHC (RBC) [Mass/Vol] 32.7 g/dL 32-36 [facility] Mean platelet volume determi nationOrdered By: Alisha Abdalla on 12-16-2024 Platelet mean volume (Bld) [Entitic vol] 9.8 fL 6.2-12.0 [facility] Monocyte percentageOrdered B y: Alisha Abdalla on 12-16-2024 Monocytes/100 WBC (Bld) 13.8 % High 0-10 [facility] Neutrophil percentageOrdered By: Alisha Abdalla on 12-16-2024 Neutrophils/100 WBC (Bld) 63.5 % 47-70 [facility] Nucleated red blood cell per centageOrdered By: Alisha Abdalla on 12-16-2024 Nucleated RBC/100 WBC (Bld) [Ratio] 0 % 0-5 [facility] Oncology Visit Reporton Oncology Visit Report [facility] [address] [place] [address] OFFICE VISIT Date of Service: 12/16/24 1116 MR#: [id number] Acct: [id number] Name: MU LINCOLN Rep #: [id number] : 1940 From: Alisha Abdalla NP EXTRAS CASTING DIRECTOR -C Age/Sex: 84/F [place] [facility] Status: Signed HPI Subjective Date of Service 12/16/24 Chief Complaint Follow up- DCIS History of Present Illness 84-year-old female who presented after an abnormal screening mammogram following a 2-year And screening mammography. 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 Present. Microcalcifications ??? Present. Other findings: Intraductal hyperplasia with and without atypia. Skin with no pathologic change. ANTIBODY / CLONE RESULT Block 1 P53 (DO-7) positive, wild type Ki-67 (30-9) positive, 35% CK8 (18njgpL03) positive CK5-6 (D5 1684) negative Calponin-1 (IC954X) negative P40 (BC28) negative E-Cad (ECH-6) positive MOC-31 (4561) positive MORPHOMETRIC ANALYSIS ER (clone 6F11) 0 % MI (clone 16/1E2) 0% Her-2Neu (clone CB11) 3+ June 09, 2024 left mastectomy with sentinel lymph node biopsy: FROZEN SECTION DIAGNOSIS A. Left axillary sentinel lymph node, biopsy: One out of one lymph node, negative for carcinoma. AM.mr 06/09/2024 MICROSCOPIC DIAGNOSIS A. Left axillary sentinel lymph node, biopsy: One lymph node, negative for metastatic carcinoma. See comment. B. Left breast, mastectomy: Ductal carcinoma in situ. See cancer summary in the comment section. /mr 06/12/2024 COMMENT The lymph node is negative for metastatic carcinoma on multiple H E levels and immunohistochemical stains for cytokeratins ([id number]). B. Cancer summary: Specimen: Procedure: Total mastectomy Specimen laterality: Left Tumor: Tumor site: Inferior portion, deep central lateral aspect as per clinical information. Histologic type: Ductal carcinoma in situ Size (extent of DCIS): 1.5 x 0.5cm (measures microscopically), tumor is present adjacent to the previous biopsy site Number of blocks with DCIS: 1 Number of blocks examined: 12 Architectural pattern: Comedo and cribriform Nuclear Grade: Grade 3 (high) Necrosis: Present, central (expansive comedo ???necrosis???) Microcalcifications: Present in DCIS and non-neoplastic tissue Margins: The tumor is 3.0cm from closest inferior margin Regional lymph node status: Number of lymph node examined: 1 Number of sentinel lymph node examined: 1 Number of lymph node with macrometasteses, micrometasteses and isolated tumor cells:0 Distal metastases: Not applicable Additional findings: - Focal intraductal hyperplasia with atypia - Changes consistent with previous biopsy site. Ancillary studies: Previously performed on [id number] and [id number] ER- negative (0) MI- negative (0) Her2 pooja- positive (3) Ki67- positive, 35% Clinical information: Please make reference to previous specimen [id number] left breast, stereotactic core biopsy with diagnosis of ductal carcinoma in situ. Pathology staging: pTis (DCIS) pN0(sn) pMx Interval History The patient is presenting to clinic for a planned 3 month follow up. No concerns r/t today's visit. Denies headaches, vision changes, CP, palpitations, cough, SOB, abd pain, bone pain, swelling in her feet ankles. Specifically denies changes in her breasts. Underwent clinical breast exam last week with surgery. [facility] Medical History Ductal carcinoma in situ (DCIS) of left breast Cancer Post-menopausal Alcohol use Thyroid disease Arthritis Low iron Anemia History of diverticulitis Non-smoker History of atrial fibrillation History of echocardiogram Cardiology follow-up encounter GERD (gastroesophageal reflux disease) Blepharochalasis Metatarsalgia of right foot Hiatal hernia Acute insomnia History of colon polyps Diverticulosis of colon Immunosuppression due to drug therapy Osteoporosis Renal transplant disorder Hypothyroidism Barretts esophagus Surgical History S/P left mastectomy History of Petra fundoplication Hx of left cataract extraction Hx of right cataract extraction Hx of esophagogastroduodenoscopy Hx of colonoscopy Hx of hernia repair Hx of kidney transplant Hx of kidney transplant Arteriovenous fistula removed (2012) H/O parathyroidectomy (2012) Kidney transplanted (2010) Hx of tonsillectomy (1983) History of hysterectomy (1989) Family History Father Non-Hodgkin lymphoma Brother History of esophageal cancer Brother Diabetes CAD (coronary artery disease) Obesity Cirrhosis from fatty liver Kidney disease Son N (more content not included)... Normal [facility] Platelet countOrdered By: Pedrito Abdalla on 12-16-2024 Platelets (Bld) [#/Vol] 234 10*3/uL 150-450 [facility] Potassium measurement (mass/ volume)Ordered By: Alisha Abdalla on 12-16-2024 Potassium (Unsp spec) [Mass/Vol] 4.7 mmol/L 3.3-5.1 [facility] RBC Auto (Bld) [#/Vol]Ordere d By: Alisha Abdalla on 12-16-2024 RBC (Bld) [#/Vol] 4.01 10*6/uL Low 4.2-5.4 [facility] Serum creatinine measurement (mass/volume)Ordered By: Alisha Abdalla on 12-16-2024 Creatinine [Mass/Vol] 1.29 mg/dL High 0.70-1.20 [facility] Serum globulin measurementOr dered By: Alisha Abdalla on 12-16-2024 Globulin (S) [Mass/Vol] 2.4 g/dL 2.2-4.2 [facility] Serum glucose measurement (m ass/volume)Ordered By: Alisha Abdalla on 12-16-2024 Glucose [Mass/Vol] 93 mg/dL 70-99 [facility] Serum or plasma alanine slaughter otransferase (ALT) measurementOrdered By: Alisha Abdalla on 12-16-2024 ALT [Catalytic activity/Vol] 6 U/L <35 [facility] Serum or plasma albumin castro urement (mass/volume)Ordered By: Alisha Abdalla 12-16-2024 Albumin [Mass/Vol] 4.1 g/dL 3.4-4.8 [facility] Serum or plasma albumin/glob ulin mass ratioOrdered By: Alisha Abdalla 12-16-2024 Albumin/Globulin [Mass ratio] 1.7 {ratio} 0.9-2.4 [facility] Serum or plasma alkaline jasvir sphatase measurementOrdered By: Alisha Abdalla 12-16-2024 ALP [Catalytic activity/Vol] 95 U/L 35-104 [facility] Serum or plasma calcium castro urement (mass/volume)Ordered By: Alisha Abdalla 12-16-2024 Calcium [Mass/Vol] 8.0 mg/dL 7.6-11.0 [facility] Serum or plasma urea nitroge n measurement (mass/volume)Ordered By: Alisha Abdalla 12-16-2024 Urea nitrogen [Mass/Vol] 23 mg/dL High 4-19 [facility] Sodium levelOrdered By: Alisha Abdalla on 12-16-2024 Sodium [Moles/Vol] 136 mmol/L 133-145 [facility] Total proteinOrdered By: Sony Abdalla on 12-16-2024 Protein [Mass/Vol] 6.5 g/dL 5.9-8.4 [facility] White blood cell (WBC) count Ordered By: Alisha Abdalla on 12-16-2024 WBC (Bld) [#/Vol] 6.2 10*3/uL 4.4-11.0 [facility] Surgery Visit Reporton 12-10 Surgery Visit Report [facility] [address] [place] [address] OFFICE VISIT Date of Service: 12/10/24 MR#: [id number] Acct: [id number] Name: MU LINCOLN Rep #: [id number] : 1940 Provider: Dr. Mandy aiken MD Age/Sex: 84/F Location: [facility] Status: Signed Intake Vital Signs 09/28/24 11:28 Height 4 ft 11 in Intake Visit Reasons: 6 M BREAST CHECK Chief Complaint: Follow up- DCIS Allergies No Known Allergies Allergy (Verified 12/10/24 14:09) Medications ???Medication ???Instructions ???Recorded ???Confirmed ???Type alprazolam 0.25 mg tablet 0.125 mg PO QHS PRN PRN Insomnia 0 01/17/19 12/10/24 History levothyroxine 75 mcg tablet 75 mcg PO DAILY 01/17/19 12/10/24 History tacrolimus 1 mg capsule, 2 mg PO BID 01/17/19 12/10/24 Hist ory immediate-release (Prograf) cholecalciferol (vitamin D3) 25 25 mcg PO DAILY 06/11/23 12/10/24 History mcg (1,000 unit) tablet cinacalcet 30 mg tablet (Sensipar) 30 mg PO DAILY 06/11/23 12/10/24 History denosumab 60 mg/mL subcutaneous 60 mg subcut [id number] 06/11/23 History syringe (Prolia) magnesium oxide 250 mg PO QHS supplement 06/11/23 12/10/24 History mycophenolate mofetil 250 mg 500 mg PO BID 07/10/23 12/10/24 Hi story capsule famotidine 20 mg tablet 20 mg PO BID 05/29/24 12/10/24 His tory lisinopril 5 mg tablet 5 mg PO DAILY 05/29/24 12/10/24 Hi story ferrous sulfate 325 mg (65 mg 325 mg PO QDAY 07/13/24 12/10/24 H istory iron) tablet vitamins A,C,B-nnwu-ytmiww 4,296 1 cap PO BID 07/13/24 12/10/24 His tory mcg-226 mg-90 mg capsule (PreserVision AREDS) Have you fallen in the past year?: No PFSH Medical History Ductal carcinoma in situ (DCIS) of left breast Cancer Post-menopausal Alcohol use Thyroid disease Arthritis Low iron Anemia History of diverticulitis Non-smoker History of atrial fibrillation History of echocardiogram Cardiology follow-up encounter GERD (gastroesophageal reflux disease) Blepharochalasis Metatarsalgia of right foot Hiatal hernia Acute insomnia History of colon polyps Diverticulosis of colon Immunosuppression due to drug therapy Osteoporosis Renal transplant disorder Hypothyroidism Barretts esophagus Surgical History S/P left mastectomy History of Petra fundoplication Hx of left cataract extraction Hx of right cataract extraction Hx of esophagogastroduodenoscopy Hx of colonoscopy Hx of hernia repair Hx of kidney transplant Hx of kidney transplant Arteriovenous fistula removed (2012) H/O parathyroidectomy (2012) Kidney transplanted (2010) Hx of tonsillectomy (1983) History of hysterectomy (1989) Family History Father Non-Hodgkin lymphoma Brother History of esophageal cancer Brother Diabetes CAD (coronary artery disease) Obesity Cirrhosis from fatty liver Kidney disease Son Non-Hodgkin lymphoma Social History Smoking Status: Never smoker alcohol intake: never substance use type: does not use HPI HPI HPI: 84-year-old female presents status post left mastectomy for DCIS with 1 negative sentinel node, ER/MI negative. Patient is doing well denies any issues with the incision or pain. Patient not needing any further treatment after surgery but does follow with oncology. Exam Const General: cooperative, healthy appearing and no acute distress HENIN Head: normal to inspection Chest Other: Left mastectomy incision well-healed no masses appreciated on exam or supraclavicular or axillary adenopathy. 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 Follow-up in 6 months. Patient is agreeable with plan. Mandy Tse M.D. Pager: [phone] [facility] [address] [place] [address], [address], [address] [place] [address] Office: [phone] Coding Level of Care Code Off vis,est,level 3 Diagnoses S/P left mastectomy Z90.12 Ductal carcinoma in situ (DCIS) of left breast D05.12 Clinical Quality Measures Falls Risk Screening/Assistive Devices Have you falle (more content not included)... Normal [facility] Tacrolimus (Prograf)on 11-25 Tacrolimus (Bld) [Mass/Vol] 6.1 ng/mL Normal 5.0-20.0 [facility] Comment on above: Order Comment: Test( s) 962007-Fdabiipudm (FK506), Blood was developed and its performance characteristics determined by [employer]. It has not been cleared or approved by the Food and Drug Administration. Result Comment: Anita howard steady state trough concentration for Tacrolimus varies based on type of organ transplant immunosuppressive protocol and other patient specific factors. Tacrolimus trough concentrations should be interpreted in conjunction with clinical assessments of rejection and tolerability. Values obtained with different assay methods cannot be used interchangeably due to differences in assay methods and cross-reactivty with metabolites, nor should correction factors be applied. Therefore, consistent use of one assay for individual patients is recommended. Detection Limit = 0.5 ng/mL Performed by LC-MS/MS technology Please note reference interval change Performed at: [address] [id number] Button Machine Operator: Su Iraheta MD, Phone: [phone] Performed By: #### L 509.1000, L501.5200, L3380.1000, L506.1000, L100.0500, L500.3600, L501.1930 #### [facility] [address] [place], [address] Blood urea nitrogen (BUN)/cr eatinine ratioon 11-23-2024 Urea nitrogen/Creatinine [Mass ratio] 21.2 mg/mg High 10- [facility] CBC-Complete Blood Cnt No Di ffon 11-23-2024 Erythrocyte distribution width (RBC) [Ratio] 14.1 % Normal 11.6-14.6 [facility] Comment on above: Performed By: #### L 509.1000, L501.5200, L3380.1000, L506.1000, L100.0500, L500.3600, L501.1930 #### [facility] [address] [place], [address] Hematocrit (Bld) [Volume fraction] 33.6 % Low 37-47 [facility] Comment on above: Performed By: #### L 509.1000, L501.5200, L3380.1000, L506.1000, L100.0500, L500.3600, L501.1930 #### [facility] [address] [place], [address] Hemoglobin (Bld) [Mass/Vol] 11.3 g/dL Low 12.0-15.0 [facility] Comment on above: Performed By: #### L 509.1000, L501.5200, L3380.1000, L506.1000, L100.0500, L500.3600, L501.1930 #### [facility] [address] [place], [address] MCH (RBC) [Entitic mass] 29.4 pg Normal 27.0-32.0 [facility] Comment on above: Performed By: #### L 509.1000, L501.5200, L3380.1000, L506.1000, L100.0500, L500.3600, L501.1930 #### [facility] [address] [place], [address] MCHC (RBC) [Mass/Vol] 33.6 g/dL Normal 32-36 [facility] Comment on above: Performed By: #### L 509.1000, L501.5200, L3380.1000, L506.1000, L100.0500, L500.3600, L501.1930 #### [facility] [address] [place], [address] MCV (RBC) [Entitic vol] 87.5 fL Normal 81-99 [facility] Comment on above: Performed By: #### L 509.1000, L501.5200, L3380.1000, L506.1000, L100.0500, L500.3600, L501.1930 #### [facility] [address] [place], [address] Platelet mean volume (Bld) [Entitic vol] 9.9 fL Normal 6.2-12.0 [facility] Comment on above: Performed By: #### L 509.1000, L501.5200, L3380.1000, L506.1000, L100.0500, L500.3600, L501.1930 #### [facility] [address] [place], [address] Platelets (Bld) [#/Vol] 311 10*3/uL Normal 150-450 [facility] Comment on above: Performed By: #### L 509.1000, L501.5200, L3380.1000, L506.1000, L100.0500, L500.3600, L501.1930 #### [facility] [address] [place], [address] RBC (Bld) [#/Vol] 3.84 10*6/uL Low 4.2-5.4 [facility] Comment on above: Performed By: #### L 509.1000, L501.5200, L3380.1000, L506.1000, L100.0500, L500.3600, L501.1930 #### [facility] [address] [place], [address] RDW SD 45.1 fl High 35.1-43.9 [facility] Comment on above: Performed By: #### L 509.1000, L501.5200, L3380.1000, L506.1000, L100.0500, L500.3600, L501.1930 #### [facility] [address] [place], [address] WBC (Bld) [#/Vol] 6.3 10*3/uL Normal 4.4-11.0 [facility] Comment on above: Performed By: #### L 509.1000, L501.5200, L3380.1000, L506.1000, L100.0500, L500.3600, L501.1930 #### [facility] [address] [place], [address] Carbon dioxide measurementon 11-23-2024 CO2 [Moles/Vol] 24.0 mmol/L 21.0-32.0 [facility] Chloride measurementon 11-23 Chloride [Moles/Vol] 102 mmol/L 98-107 [facility] Erythrocyte distribution wid th ratioon 11-23-2024 Erythrocyte distribution width (RBC) [Ratio] 14.1 % 11.6-14.6 [facility] Erythrocyte distribution wid th standard deviationon 11-23-2024 Erythrocyte distribution width (RBC) [Ratio] 45.1 fl High 35.1-43.9 [facility] Glomerular filtration rate ( GFR) estimationon 11-23-2024 GFR/1.73 sq M.predicted among non-blacks MDRD (S/P/Bld) [Vol rate/Area] 39 mL/min/{1.73_m2} Low >60 [facility] Comment on above: Non- GFR Calc Glucose measurementon 2024 Glucose [Mass/Vol] 92 mg/dL 74-106 [facility] Hematocrit Auto (Bld) [Volum e fraction]on 11-23-2024 Hematocrit (Bld) [Volume fraction] 33.6 % Low 37-47 [facility] Hemoglobin measurementon Hemoglobin (Bld) [Mass/Vol] 11.3 g/dL Low 12.0-15.0 [facility] MCV (mean corpuscular volume ) determinationon 11-23-2024 MCV (RBC) [Entitic vol] 87.5 fL 81-99 [facility] Magnesiumon 11-23-2024 Magnesium [Mass/Vol] 1.7 mg/dL Normal 1.6-2.6 [facility] Comment on above: Performed By: #### L 509.1000, L501.5200, L3380.1000, L506.1000, L100.0500, L500.3600, L501.1930 #### [facility] [place], [address] Magnesium measurementon 11-14 Magnesium [Mass/Vol] 1.7 mg/dL 1.6-2.6 [facility] Mean corpuscular hemoglobin (MCH) determinationon 11-23-2024 MCH (RBC) [Entitic mass] 29.4 pg 27.0-32.0 [facility] Mean corpuscular hemoglobin concentration (MCHC) determinationon 11-23-2024 MCHC (RBC) [Mass/Vol] 33.6 g/dL 32-36 [facility] Mean platelet volume determi nationon 11-23-2024 Platelet mean volume (Bld) [Entitic vol] 9.9 fL 6.2-12.0 [facility] PTHINon 11-23-2024 PTH 31.9 pg/mL Normal 18.4-80.1 [facility] Comment on above: Performed By: #### L 509.1000, L501.5200, L3380.1000, L506.1000, L100.0500, L500.3600, L501.1930 #### [facility] [address] [place], [address] Platelet counton 11-23-2024 Platelets (Bld) [#/Vol] 311 10*3/uL 150-450 [facility] Potassium measurementon 11-14 Potassium [Moles/Vol] 4.1 mmol/L 3.5-5.1 [facility] Protein, Urine (Random)on Protein (U) [Mass/Vol] 85.9 mg/dL High <11.9 [facility] Comment on above: Performed By: #### L 509.1000, L501.5200, L3380.1000, L506.1000, L100.0500, L500.3600, L501.1930 #### [facility] [address] [place], [address] RBC Auto (Bld) [#/Vol]on RBC (Bld) [#/Vol] 3.84 10*6/uL Low 4.2-5.4 [facility] Random urine protein measure menton 11-23-2024 Protein (U) [Mass/Vol] 85.9 mg/dL High 0.0-11.8 [facility] Renal Profileon 11-23-2024 Albumin [Mass/Vol] 3.0 g/dL Low 3.2-5.0 [facility] Comment on above: Performed By: #### L 509.1000, L501.5200, L3380.1000, L506.1000, L100.0500, L500.3600, L501.1930 #### [facility] [address] [place], [address] BUN/CRE 21.2 RATIO High 10-20 [facility] Comment on above: Performed By: #### L 509.1000, L501.5200, L3380.1000, L506.1000, L100.0500, L500.3600, L501.1930 #### [facility] [address] [place], [address] CA,Total 8.9 mg/dL Normal 8.5-10.1 [facility] Comment on above: Performed By: #### L 509.1000, L501.5200, L3380.1000, L506.1000, L100.0500, L500.3600, L501.1930 #### [facility] [address] [place], [address] Chloride [Moles/Vol] 102 mmol/L Normal 98-107 [facility] Comment on above: Performed By: #### L 509.1000, L501.5200, L3380.1000, L506.1000, L100.0500, L500.3600, L501.1930 #### [facility] [address] [place], [address] CO2 [Moles/Vol] 24.0 mmol/L Normal 21.0-32.0 [facility] Comment on above: Performed By: #### L 509.1000, L501.5200, L3380.1000, L506.1000, L100.0500, L500.3600, L501.1930 #### [facility] [address] [place], [address] Creatinine [Mass/Vol] 1.37 mg/dL High 0.55-1.02 [facility] Comment on above: Result Comment: The validity of the calculated GFR GFRAA in patients over 70 years has not been determined. Clinical correlation is essential. Performed By: #### L 509.1000, L501.5200, L3380.1000, L506.1000, L100.0500, L500.3600, L501.1930 #### [facility] [address] [place], [address] EST GFR - AA 47 mL/min Low >60 [facility] Comment on above: Result Comment: Afri can German GFR Calc Performed By: #### L 509.1000, L501.5200, L3380.1000, L506.1000, L100.0500, L500.3600, L501.1930 #### [facility] [address] [place], [address] GFR/1.73 sq M.predicted among non-blacks MDRD (S/P/Bld) [Vol rate/Area] 39 mL/min/{1.73_m2} Low >60 [facility] Comment on above: Result Comment: Non- GFR Calc Performed By: #### L 509.1000, L501.5200, L3380.1000, L506.1000, L100.0500, L500.3600, L501.1930 #### [facility] [address] [place], [address] Glucose [Mass/Vol] 92 mg/dL Normal 74-106 [facility] Comment on above: Performed By: #### L 509.1000, L501.5200, L3380.1000, L506.1000, L100.0500, L500.3600, L501.1930 #### [facility] [address] [place], [address] Phosphate [Mass/Vol] 5.3 mg/dL High 2.5-4.9 [facility] Comment on above: Performed By: #### L 509.1000, L501.5200, L3380.1000, L506.1000, L100.0500, L500.3600, L501.1930 #### [facility] [address] [place], [address] Potassium [Moles/Vol] 4.1 mmol/L Normal 3.5-5.1 [facility] Comment on above: Performed By: #### L 509.1000, L501.5200, L3380.1000, L506.1000, L100.0500, L500.3600, L501.1930 #### [facility] [address] [place], [address] Sodium [Moles/Vol] 134 mmol/L Low 136-145 [facility] Comment on above: Performed By: #### L 509.1000, L501.5200, L3380.1000, L506.1000, L100.0500, L500.3600, L501.1930 #### [facility] [address] [place], [address] Urea nitrogen [Mass/Vol] 29 mg/dL High 04-30 [facility] Comment on above: Performed By: #### L 509.1000, L501.5200, L3380.1000, L506.1000, L100.0500, L500.3600, L501.1930 #### [facility] [address] [place], [address] Serum or plasma albumin castro urement (mass/volume)on 11-23-2024 Albumin [Mass/Vol] 3.0 g/dL Low 3.2-5.0 [facility] Serum or plasma calcium castro urement (mass/volume)on 11-23-2024 Calcium [Mass/Vol] 8.9 mg/dL 8.5-10.1 [facility] Serum or plasma creatinine m easurement (mass/volume)on 11-23-2024 Creatinine [Mass/Vol] 1.37 mg/dL High 0.55-1.02 [facility] Comment on above: The validity of the calculated GFR & GFRAA in patients over 70 years has not been determined. Clinical correlation is essential. Serum or plasma urea nitroge n measurement (mass/volume)on 11-23-2024 Urea nitrogen [Mass/Vol] 29 mg/dL High 7-18 [facility] Sodium levelon 11-23-2024 Sodium [Moles/Vol] 134 mmol/L Low 136-145 [facility] Vitamin D,25 Hydroxyon 11-23 Vitamin D 25-OH 62.5 ng/mL Normal [facility] Comment on above: Result Comment: Jess min D 25(OH) Status Range Deficiency <20 ng/mL (50nmol/L) Insufficiency 20 - 30 ng/mL (50 - 75 nmol/L) Sufficiency 30 - 100 ng/mL (75 - 250 nmol/L) Toxicity >100 ng/mL (>250 nmol/L) Performed By: #### L 509.1000, L501.5200, L3380.1000, L506.1000, L100.0500, L500.3600, L501.1930 #### [facility] [address] [place], [address] White blood cell (WBC) count on 11-23-2024 WBC (Bld) [#/Vol] 6.3 10*3/uL 4.4-11.0 [facility] CBC W/Diff, Automatedon 09-13 Absolute Lymph 1.15 X10 3/uL Normal 0.83-4.51 [facility] Comment on above: Performed By: #### L 509.1000, L501.5200, L3380.1000, L506.1000, L100.0500, L500.3600, L501.1930 #### [facility] [address] [place], [address] Absolute Neut 3.7 X10 3/uL Normal 2.0-7.7 [facility] Comment on above: Performed By: #### L 509.1000, L501.5200, L3380.1000, L506.1000, L100.0500, L500.3600, L501.1930 #### [facility] [address] [place], [address] Basophils/100 WBC (Bld) 0.8 % Normal 0-1 [facility] Comment on above: Performed By: #### L 509.1000, L501.5200, L3380.1000, L506.1000, L100.0500, L500.3600, L501.1930 #### [facility] [address] [place], [address] Eosinophils/100 WBC (Bld) 3.5 % Normal 0-5 [facility] Comment on above: Performed By: #### L 509.1000, L501.5200, L3380.1000, L506.1000, L100.0500, L500.3600, L501.1930 #### [facility] [address] [place], [address] Erythrocyte distribution width (RBC) [Ratio] 14.8 % High 11.6-14.6 [facility] Comment on above: Performed By: #### L 509.1000, L501.5200, L3380.1000, L506.1000, L100.0500, L500.3600, L501.1930 #### [facility] [address] [place], [address] Hematocrit (Bld) [Volume fraction] 36.5 % Low 37-47 [facility] Comment on above: Performed By: #### L 509.1000, L501.5200, L3380.1000, L506.1000, L100.0500, L500.3600, L501.1930 #### [facility] [address] [place], [address] Hemoglobin (Bld) [Mass/Vol] 12.0 g/dL Normal 12.0-15.0 [facility] Comment on above: Performed By: #### L 509.1000, L501.5200, L3380.1000, L506.1000, L100.0500, L500.3600, L501.1930 #### [facility] [address] [place], [address] IG% 0.500 Normal 0.0-0.9 [facility] Comment on above: Result Comment: IG% - Immature Granulocytes (promyelocytes, myelocytes and metamyelocytes) > 1% indicates that a LEFT SHIFT is Present. Performed By: #### L 509.1000, L501.5200, L3380.1000, L506.1000, L100.0500, L500.3600, L501.1930 #### [facility] [address] [place], [address] Lymphocytes/100 WBC (Bld) 18.9 % Low 19-41 [facility] Comment on above: Performed By: #### L 509.1000, L501.5200, L3380.1000, L506.1000, L100.0500, L500.3600, L501.1930 #### [facility] [address] [place], [address] MCH (RBC) [Entitic mass] 29.4 pg Normal 27.0-32.0 [facility] Comment on above: Performed By: #### L 509.1000, L501.5200, L3380.1000, L506.1000, L100.0500, L500.3600, L501.1930 #### [facility] [address] [place], [address] MCHC (RBC) [Mass/Vol] 32.9 g/dL Normal 32-36 [facility] Comment on above: Performed By: #### L 509.1000, L501.5200, L3380.1000, L506.1000, L100.0500, L500.3600, L501.1930 #### [facility] [address] [place], [address] MCV (RBC) [Entitic vol] 89.5 fL Normal 81-99 [facility] Comment on above: Performed By: #### L 509.1000, L501.5200, L3380.1000, L506.1000, L100.0500, L500.3600, L501.1930 #### [facility] [address] [place], [address] Monocytes/100 WBC (Bld) 16.1 % High 0-10 [facility] Comment on above: Performed By: #### L 509.1000, L501.5200, L3380.1000, L506.1000, L100.0500, L500.3600, L501.1930 #### [facility] [address] [place], [address] Neutrophils/100 WBC (Bld) 60.2 % Normal 47-70 [facility] Comment on above: Performed By: #### L 509.1000, L501.5200, L3380.1000, L506.1000, L100.0500, L500.3600, L501.1930 #### [facility] [address] [place], [address] Nucleated RBC (Bld) [#/Vol] 0 10*3/uL Normal 0-5 [facility] Comment on above: Performed By: #### L 509.1000, L501.5200, L3380.1000, L506.1000, L100.0500, L500.3600, L501.1930 #### [facility] [address] [place], [address] Platelet mean volume (Bld) [Entitic vol] 10.0 fL Normal 6.2-12.0 [facility] Comment on above: Performed By: #### L 509.1000, L501.5200, L3380.1000, L506.1000, L100.0500, L500.3600, L501.1930 #### [facility] [address] [place], [address] Platelets (Bld) [#/Vol] 250 10*3/uL Normal 150-450 [facility] Comment on above: Performed By: #### L 509.1000, L501.5200, L3380.1000, L506.1000, L100.0500, L500.3600, L501.1930 #### [facility] [address] [place], [address] RBC (Bld) [#/Vol] 4.08 10*6/uL Low 4.2-5.4 [facility] Comment on above: Performed By: #### L 509.1000, L501.5200, L3380.1000, L506.1000, L100.0500, L500.3600, L501.1930 #### [facility] [address] [place], [address] RDW SD 47.9 fl High 35.1-43.9 [facility] Comment on above: Performed By: #### L 509.1000, L501.5200, L3380.1000, L506.1000, L100.0500, L500.3600, L501.1930 #### [facility] [address] [place], [address] WBC (Bld) [#/Vol] 6.1 10*3/uL Normal 4.4-11.0 [facility] Comment on above: Performed By: #### L 509.1000, L501.5200, L3380.1000, L506.1000, L100.0500, L500.3600, L501.1930 #### [facility] [address] [place], [address] Ferritinon 09-28-2024 Ferritin [Mass/Vol] 59 ng/mL Normal [facility] Comment on above: Order Comment: NEIDA E ADD TO BLOOD IN LAB. THANK YOU!! Performed By: #### L 503.6030, L503.6550 #### [facility] [address] [place], [address] Ferritin measurementOrdered By: Alisha Abdalla on 09-28-2024 Ferritin [Mass/Vol] 59 ng/mL [facility] Iron measurement (mass/mass) Ordered By: Alisha Abdalla on 09-28-2024 Iron (Unsp spec) [Mass/Mass] 99 ug/dL 50-170 [facility] Iron+Iron Binding Capacityon 09-28-2024 Iron [Mass/Vol] 99 ug/dL Normal 50-170 [facility] Comment on above: Order Comment: PLEAS E ADD TO BLOOD IN LAB. THANK YOU!! Performed By: #### L 503.6030, L503.6550 #### [facility] [address] [place], [address] IRON SATURATION 34.6 Normal 15.0-55.0 [facility] Comment on above: Order Comment: PLEAS E ADD TO BLOOD IN LAB. THANK YOU!! Performed By: #### L 503.6030, L503.6550 #### [facility] [address] [place], [address] TIBC 286 ug/dL Normal 250-450 [facility] Comment on above: Order Comment: PLEAS E ADD TO BLOOD IN LAB. THANK YOU!! Performed By: #### L 503.6030, L503.6550 #### [facility] [address] [place], [address] Oncology Visit Reporton 09-13 Oncology Visit Report [facility] [address] [place] [address] OFFICE VISIT Date of Service: 09/28/24 1121 MR#: [id number] Acct: [id number] Name: MU LINCOLN Rep #: [id number] : 1940 From: Alisha Abdalla EXTRAS CASTING DIRECTOR EXTRAS CASTING DIRECTOR -C Age/Sex: 83/F [place] [facility] [place] Status: Signed HPI Subjective Date of Service 09/28/24 Chief Complaint Follow up- DCIS History of Present Illness 83-year-old female who presented after an abnormal screening mammogram following a 2-year And screening mammography. 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 Present. Microcalcifications ??? Present. Other findings: Intraductal hyperplasia with and without atypia. Skin with no pathologic change. ANTIBODY / CLONE RESULT Block 1 P53 (DO-7) positive, wild type Ki-67 (30-9) positive, 35% CK8 (71kiumJ34) positive CK5-6 (D5 1684) negative Calponin-1 (QR807Z) negative P40 (BC28) negative E-Cad (ECH-6) positive MOC-31 (4561) positive MORPHOMETRIC ANALYSIS ER (clone 6F11) 0 % MI (clone 16/1E2) 0% Her-2Neu (clone CB11) 3+ June 09, 2024 left mastectomy with sentinel lymph node biopsy: FROZEN SECTION DIAGNOSIS A. Left axillary sentinel lymph node, biopsy: One out of one lymph node, negative for carcinoma. AM.mr 06/09/2024 MICROSCOPIC DIAGNOSIS A. Left axillary sentinel lymph node, biopsy: One lymph node, negative for metastatic carcinoma. See comment. B. Left breast, mastectomy: Ductal carcinoma in situ. See cancer summary in the comment section. /mr 06/12/2024 COMMENT The lymph node is negative for metastatic carcinoma on multiple H E levels and immunohistochemical stains for cytokeratins ([id number]). B. Cancer summary: Specimen: Procedure: Total mastectomy Specimen laterality: Left Tumor: Tumor site: Inferior portion, deep central lateral aspect as per clinical information. Histologic type: Ductal carcinoma in situ Size (extent of DCIS): 1.5 x 0.5cm (measures microscopically), tumor is present adjacent to the previous biopsy site Number of blocks with DCIS: 1 Number of blocks examined: 12 Architectural pattern: Comedo and cribriform Nuclear Grade: Grade 3 (high) Necrosis: Present, central (expansive comedo ???necrosis???) Microcalcifications: Present in DCIS and non-neoplastic tissue Margins: The tumor is 3.0cm from closest inferior margin Regional lymph node status: Number of lymph node examined: 1 Number of sentinel lymph node examined: 1 Number of lymph node with macrometasteses, micrometasteses and isolated tumor cells:0 Distal metastases: Not applicable Additional findings: - Focal intraductal hyperplasia with atypia - Changes consistent with previous biopsy site. Ancillary studies: Previously performed on [id number] and [id number] ER- negative (0) MI- negative (0) Her2 pooja- positive (3) Ki67- positive, 35% Clinical information: Please make reference to previous specimen [id number] left breast, stereotactic core biopsy with diagnosis of ductal carcinoma in situ. Pathology staging: pTis (DCIS) pN0(sn) pMx Interval History The patient is presenting to clinic for a planned 3 month follow up. She denies any concerns r/t today's visit. Taking iron and vitamin C daily, reports mild constipation. [facility] Medical History Ductal carcinoma in situ (DCIS) of left breast Cancer Post-menopausal Alcohol use Thyroid disease Arthritis Low iron Anemia History of diverticulitis Non-smoker History of atrial fibrillation History of echocardiogram Cardiology follow-up encounter GERD (gastroesophageal reflux disease) Blepharochalasis Metatarsalgia of right foot Hiatal hernia Acute insomnia History of colon polyps Diverticulosis of colon Immunosuppression due to drug therapy Osteoporosis Renal transplant disorder Hypothyroidism Barretts esophagus Surgical History S/P left mastectomy History of Petra fundoplication Hx of left cataract extraction Hx of right cataract extraction Hx of esophagogastroduodenoscopy Hx of colonoscopy Hx of hernia repair Hx of kidney transplant Hx of kidney transplant Arteriovenous fistula removed (2012) H/O parathyroidectomy (2012) Kidney transplanted (2010) Hx of tonsillectomy (1983) History of hysterectomy (1989) Family History Father Non-Hodgkin lymphoma Brother History of esophageal cancer Brother Diabetes CAD (coronary artery disease) Obesity Cirrhosis from fatty liver Kidney disease Son Non-Hodgkin lymphoma Social History Smoking Status: Never smoker alcohol intake: never substance (more content not included)... Normal [facility] Serum or plasma iron saturat ion measurement (mass fraction)Ordered By: Alisha Abdalla on 09-28-2024 Iron saturation [Mass fraction] 34.6 % 15.0-55.0 [facility] Evonne 09-09-[address] [facility] Telephone ([id number]) GANESHMU OLVERA ([id number]) 1940 F Date Time Provider Department 09/09/24 YAW APPLE3 During your visit today, we recorded the following information about you: Yong Mcdonald RN 09/09/2024 2:32 PM Addendum ----- Message from Yaw Apple MD sent at 09/04/2024 2:32 PM EST ----- Please call and tell patient that her EGD showed Corral's esophagus. No dysplasia. Repeat EGD 2 to 3 years Thank you I called patient and left a message with her results and I left my contact info. Recall scheduled in [employer] for 2025. Yong Mcdonald RN Patient called back and said she had already checked her results and she has no questions. Mu did ask if I could fax the colonoscopy results to Dr. Siegel in [place]. I agreed, and received a receipt that the faxed report was received. Allergies As of Date: 09/09/2024 (No Known Allergies) Date Reviewed: 08/28/2024 Reviewed by: Johnny Jimenez, RUPA - Fully Assessed Reason for Visit: Results [95] Prescriptions as of 09/09/2024 - famotidine (PEPCID) 20 mg tablet take 1 tablet by mouth twice a day before meals - cinacalcet (SENSIPAR) 30 mg tablet Take 30 mg by mouth once daily. - Vit A,C,B-Lcpc-Yjeggz (PRESERVISION AREDS) 14,320-226-200 yzkb-ha-zxyr cap Take by mouth. - denosumab (PROLIA) 60 mg/mL Inject 60 mg subcutaneously one time only. Every 6 months - Lactobac no.41/Bifidobact no.7 (PROBIOTIC-10 ORAL) Take by mouth. - Biotin 10,000 mcg cap Take by mouth once daily. - alprazolam (XANAX ORAL) Take 0.25 mg by mouth daily at bedtime. - lisinopril (ZESTRIL) 5 mg tablet Take 5 mg by mouth once daily. - Magnesium Hydroxide 400 mg (170 mg) chew Take 250 Each by mouth daily at bedtime. - mycophenolate Mofetil (CELLCEPT) 500 mg tablet Take 500 mg by mouth twice daily. - tacrolimus IR (PROGRAF) 1 mg capsule 1 mg twice daily. - Cholecalciferol, Vitamin D3, 3,000 unit tab Take 1,000 Units by mouth once daily. - LEVOTHYROXINE 75 MCG TAB Take one(1) tablet daily. 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] 01/26/2011 Family history of GI malignancy [Z80.0] 08/23/2014 Personal history of colonic polyps [Z86.0100] 08/23/2014 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 [K22.70] 08/20/2016 Hernia, hiatal [K44.9] 10/22/2017 Gastroesophageal reflux disease [K21.9] 10/22/2017 Hiatal hernia [K44.9] 08/05/2018 GERD with esophagitis [K21.00] 08/05/2018 GERD (gastroesophageal reflux disease) [K21.9] 10/23/2018 Generalized abdominal pain [R10.84] 01/23/2019 Kidney transplant recipient [Z94.0] 2010 Dermatochalasis of both upper eyelids [H02.831,*12/15/2021 12/15/2021 Preop examination [Z01.818] 12/13/2023 Hypothyroidism [E03.9] 12/13/2023 Encounter for screening colonoscopy [Z12.11] 08/28/2024 Essential (primary) hypertension [I10] 08/28/2024 Encounter Status:Closed by YONG MCDONALD on 09/09/24 [facility] ANES POSTPROC EVALon 024 ANES POSTPROC EVAL HNO ID: [id number] Author: ROBY BRAY MD Service: Anesthesiology Author Type: Anesthesiologist Type: Anesthesia Postprocedure Evaluation Filed: 08/28/2024 13:30 Note Text: POST ANESTHESIA EVALUATION NOTE : 1940 Procedure Summary Date: 08/28/24 Room / Location: [facility] Anesthesia Start: 1117 Anesthesia Stop: 1232 Procedures: EGD DIAGNOSTIC COLONOSCOPY SCREENING Diagnosis: 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 Encounter for screening colonoscopy Scheduled Providers: Yaw Apple MD Responsible Provider: Roby Bray MD Anesthesia Type: MAC ASA Status: 3 Anesthesia Type: MAC Last Vitals Vitals Value Taken Time BP 107/69 08/28/24 1251 Temp 36 ?C (96.8 ?F) 08/28/24 1230 HR SpO2 62 08/28/24 1254 Resp 18 08/28/24 1250 SpO2 100 % 08/28/24 1254 Vitals shown include unfiled device data. Post Anesthesia Patient Status Patient Evaluation: bedside. Anticipated Disposition: phase 2 then home. Neurological Status: aware and responsive. Pulmonary Status: breathing comfortably on room air Airway Control: returned to baseline unsupported. Cardiovascular Status: stable. Pain Management: clinically adequate - multimodal analgesia pain management approach Postoperative Hydration: acceptable. Intraoperative Events: no significant anesthesia events Post Operative Nausea/Vomiting Status: no significant post operative nausea or vomiting Recommendation: continue current plan of care. Anesthesia Observations No Documentation SIGNATURE: Roby Bray MD PATIENT NAME: Mu Lincoln DATE: August 28, 2024 TIME: 1:30 PM CSN: [id number] [facility] ANES PRE-OPon 08-28-2024 ANES PRE-OP HNO ID: [id number] Author: ROBY BRAY MD Service: Anesthesiology Author Type: Anesthesiologist Type: Anesthesia Preprocedure Evaluation Filed: 08/28/2024 11:05 Note Text: ANESTHESIOLOGY DAY OF SURGERY NOTE : 1940 Procedure Information Date/Time: 08/28/24 1130 Scheduled providers: Yaw Apple MD Procedures: EGD DIAGNOSTIC COLONOSCOPY SCREENING Location: [facility] Estimated body mass index is 20.2 kg/m? as calculated from the following: Height as of this encounter: 149.9 cm (4' 11). Weight as of this encounter: 45.4 kg (100 lb). Most recent hematocrit and potassium results: Hematocrit 29.1 10/24/2018 Potassium 4.9 10/24/2018 Relevant Problems CARDIO (+) Essential (primary) hypertension (+) Internal hemorrhoids without mention of complication ENDO (+) Hypothyroidism GI (+) Esophageal reflux (+) GERD (gastroesophageal reflux disease) (+) Gastroesophageal reflux disease (+) Hernia, hiatal (+) Hiatal hernia -RENAL (+) Chronic kidney disease (CKD) (+) End stage renal disease (HCC) NEURO-PSYCH (+) Personal history of colonic polyps CKD s/p kidney transplant. Creatinine 1.45 (GFR 34) I - PHYSICAL EVALUATION AIRWAY Patient intubated: No. Tracheostomy tube not present Mallampati: II. TM distance: >3 FB. Neck ROM: full ROM without neurological symptoms. Mouth opening: adequate. Short neck: no. Thick neck: no DENTAL Dental findings: missing tooth/teeth. II - ANESTHESIA PLAN ASA Score: 3 Anesthetic Plan: MAC The patient is not a current smoker. NPO Status: adequate Beta Carson Monitoring Plan Monitoring plan: standard ASA. Post Procedure Analgesic Plan Informed Consent Anesthetic risks, benefits, alternatives, personnel and consent discussed: yes. Patient / Responsible Democrat agrees to proceed: yes Patient / Surrogate agrees to blood products: blood products not planned Potential Anesthesia issues that may suggest increased risk of complications or contraindication to planned procedure: none. Vitals Value Taken Time BP 125/76 08/28/24 1036 Pulse 74 08/28/24 1036 Resp 16 08/28/24 1036 Temp 36.5 ?C (97.7 ?F) 08/28/24 1036 SpO2 99 % 08/28/24 1036 Outpatient Medications as of 08/28/2024 Medication Sig famotidine (PEPCID) 20 mg tablet take 1 tablet by mouth twice a day before meals cinacalcet (SENSIPAR) 30 mg tablet Take 30 mg by mouth once daily. Biotin 10,000 mcg cap Take by mouth once daily. alprazolam (XANAX ORAL) Take 0.25 mg by mouth daily at bedtime. lisinopril 2.5 mg tablet Take 5 mg by mouth once daily. Magnesium Hydroxide 400 mg (170 mg) chew Take 250 Each by mouth daily at bedtime. mycophenolate Mofetil (CELLCEPT) 500 mg tablet Take 500 mg by mouth twice daily. tacrolimus IR (PROGRAF) 1 mg capsule 1 mg twice daily. Cholecalciferol, Vitamin D3, 3,000 unit tab Take 1,000 Units by mouth once daily. LEVOTHYROXINE 75 MCG TAB Take one(1) tablet daily. Vit A,C,P-Oiir-Snfyso (PRESERVISION AREDS) 14,320-226-200 byja-gv-wvwr cap Take by mouth. denosumab (PROLIA) 60 mg/mL Inject 60 mg subcutaneously one time only. Every 6 months Lactobac no.41/Bifidobact no.7 (PROBIOTIC-10 ORAL) Take by mouth. Facility-Administered Medications as of 08/28/2024 Medication Dose Route Frequency lidocaine 10 mg/mL (1 %) 1-2 mg injection (XYLOCAINE) 0.1-0.2 mL INTRADERMAL PRN I have interviewed and examined the patient. I have reviewed the medical record and/or the pre-anesthesia evaluation, pertinent labs, and test results. This contains updated information obtained within 48 hours of Surgery/Procedure. SIGNATURE: Roby Bray MD PATIENT NAME: Mu Lincoln DATE: August 28, 2024 TIME: 11:01 AM CSN: [id number] [facility] HISTORY PHYSICALon 4 HISTORY PHYSICAL HNO ID: [id number] Author: SHERMAN SANABRIA APRN.SHAHAB Service: ? Author Type: Nurse Practitioner Type: H&P Filed: 08/28/2024 11:14 Note Text: HISTORY AND PHYSICAL EXAMINATION SERVICE DATE: 08/28/2024 SERVICE TIME: 10:53 AM PRIMARY CARE PHYSICIAN: Osman See MD REASON FOR VISIT: Mu Lincoln is a 83 year old female who is scheduled for Colonoscopy at the request of Dr. Yaw Apple for routine HANDP. The reason for this visit is to perform a comprehensive review of the patient's past medical history, assess their current health status and obtain any additional testing required based on anesthesia guidelines. We will also identify any potential anesthesia problems or contraindications to the planned procedure. 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 Patient is here for routine colonoscopy and evaluation of corral's esophagus. Patient has h/o corral's esophagus, had EGD last in 12/2023. Also had surgery for hiatal hernia repair about 5-6 years ago. She reports reflux disease is well controlled with Pepcid 20mg BID. Patient denies any N/V, diarrhea or constipation. Denies any abdominal pain. Denies any melena or hematochezia. Patient reports father had h/o NHL, brother had h/o esophageal cancer. Patient agreed to planned procedure. METS: Climb a flight of stairs or walk up a hill (5.50 METs) Patient denies any CP/SOB with above activity. 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) Anemia, unspecified 12/18/2005 Corral's esophagus determined by biopsy Benign neoplasm of colon 10/14/2001 by colonoscopy Chronic kidney disease (CKD) transplant 2010 Diverticulosis of colon (without mention of hemorrhage) Esophageal reflux Generalized osteoarthrosis, unspecified site hands, but no frequent nsaids GERD (gastroesophageal reflux disease) Hemorrhage of rectum and anus Hiatal hernia with gastroesophageal reflux Internal hemorrhoids without mention of complication Osteoporosis Pure hypercholesterolemia due to CKD Unspecified hypothyroidism PAST SURGICAL HISTORY Procedure Laterality Date ARTERIOVENOUS ANASTOMOSIS OPEN DIRECT Left 02/19/2011 ; PARATHYROIDECTOMY/EXPL PARATHYRD 04/2013 COLONOSCOPY FLX DX W/COLLJ SPEC WHEN PFRMD 12/26/2000 Colonoscopy [facility] COLONOSCOPY FLX DX W/COLLJ SPEC WHEN PFRMD 07/22/2006 COLONOSCOPY FLX DX W/COLLJ SPEC WHEN PFRMD 09/10/2017 Colonoscopy COLONOSCOPY W/BIOPSY SINGLE/MULTIPLE 08/30/2009 right and left sided diverticulosis, 10cm mucosal irritation (prolapse) COLSC FLX W/RMVL OF TUMOR POLYP LESION SNARE TQ 12/18/2005 EGD TRANSORAL BIOPSY SINGLE/MULTIPLE 08/07/2017 Corral's without dysplasia EGD TRANSORAL BIOPSY SINGLE/MULTIPLE 03/05/2018 Corral's without dysplasia EGD TRANSORAL BIOPSY SINGLE/MULTIPLE 03/13/2019 Corral's without dysplasia; Dr. Apple EGD TRANSORAL BIOPSY SINGLE/MULTIPLE 09/16/2019 Corral's without dysplasia; Dr. Apple EGD WITH BIOPSY(S) 11/03/2021 Corral's without dyplasia; Dr. Apple ESOPHAGEAL MOTILITY STUDY W/INTERPANDRPT 03/05/2018 ESOPHAGOSCOPY FLEX TRANSORAL LESION ABLATION 12/14/2016 ESOPHAGOSCOPY FLEX TRANSORAL LESION ABLATION 10/22/2016 ESOPHAGOSCOPY FLEX TRANSORAL LESION ABLATION 03/21/2017 ESOPHAGOSCOPY FLEX TRANSORAL LESION ABLATION 05/08/2017 ESOPHAGOSCOPY FLEX TRANSORAL LESION ABLATION 11/13/2017 ESOPHAGOSCOPY FLEX TRANSORAL LESION ABLATION 12/25/2017 ESOPHAGOSCOPY FLEX TRANSORAL LESION ABLATION 05/15/2019 #1; Dr. Apple ESOPHAGOSCOPY FLEX TRANSORAL LESION ABLATION 07/22/[address] #[address] 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 [facility] OPERATIVE NOon 08-28-2024 OPERATIVE NO HNO ID: [id number] Author: YAW APPLE MD Service: General Surgery Author Type: Physician Type: Operative Report Filed: 08/28/2024 12:32 Note Text: OPERATIVE/PROCEDURE REPORT LOG ID: [id number] SURGERY/PROCEDURE DATE: 08/28/2024 INCISION/PROCEDURE START TIME: INCISION CLOSE/PROCEDURE END TIME: 12:24 PM SURGEON(S)/PROCEDURALIST(S) AND WAREHOUSE RECEIVING CLERK(S): Yaw Apple MD - Proceduralist Ethan Ramírez DO SURGERY/PROCEDURE(S): EGD with biopsy Colonoscopy ANESTHESIA: Monitored Anesthesia Care SURGERY/PROCEDURE DETAILS: Patient is a 83-year-old female with a history of Corral's esophagus which is a long segment presents today for surveillance and need for screening colonoscopy. The risks, and complications of the procedure were reviewed with the patient in detail including bleeding, missing the lesion and perforation requiring emergency surgery and anesthetic risks. Patient agreed to proceed. Patient brought to the endoscopy suite and routine monitors performed. She is placed in left lateral position. After adequate MAC anesthesia obtained the scope inserted passed on esophagus. She does have a long segment of Corral's esophagus from about 30 to 34 cm. There is no nodularity or masses. The scope inserted retroflexed view showed a small recurrent hernia and a loose wrap. Remainder the stomach and up to second portion of the duodenum were normal. The scope was then withdrawn multiple biopsies were obtained of the GE junction and distal esophagus to adequately sampler area of Corral's esophagus. After this was done scope was inserted air was aspirated stomach and the scope was withdrawn. Next we turned our attention the colon. Perianal inspection digital rectal exam was normal. The scope was then inserted passed up to the cecum. We did have some difficulty traversing through her sigmoid colon and she has some redundancy and significant diverticulosis. Will get up to the cecum identified with appendiceal opening the ileocecal valve. The scope was then withdrawn mucosa was carefully evaluated. There were no mucosal lesions identified. There was a significant amount of sigmoid diverticulosis. Retroflexed view was normal. Scope was withdrawn she tolerated the procedure well. PRE-OP/PRE-PROCEDURE DIAGNOSIS: Corral's esophagus screening colonoscopy POST-OP/POST-PROCEDURE DIAGNOSIS: Same as Preop ESTIMATED BLOOD LOSS: 0 ml SPECIMENS: GE junction biopsies IMPLANTABLE DEVICES: NONE DRAINS: None COMPLICATIONS: None PARTICIPATION IN SURGERY/PROCEDURE: Resident, under direct supervision and the remainder of the procedure was performed by the primary surgeon/proceduralist with assistance. SIGNATURE: Yaw Apple MD PATIENT NAME: Mu Lincoln DATE: August 28, 2024 TIME: 12:29 PM [facility] SURGICAL PATHOLOGYon 024 CASE REPORT [facility] Comment on above: Order Comment: Speci men Type: TISSUE SPECIMEN Ordering Facility: [facility] Address: [address] [place] [address] Result Comment: Surg ical Pathology Report Case: [id number] Authorizing Provider: Yaw Apple, Collected: 08/28/2024 11:32 AM Ordering Location: [facility] Received: 08/28/2024 03:38 PM Pathologist: Anju De Dios MD Specimen: Esophagogastric Junction, Biopsy Performed By: #### S #### [facility] CLIA [id number] [address] [place] [address] FINAL DIAGNOSIS Normal [facility] Comment on above: Order Comment: Speci men Type: TISSUE SPECIMEN Ordering Facility: [facility] Address: [address] [place] [address] Result Comment: A. E sophagogastric junction, biopsy: -- Glandular mucosa with intestinal metaplasia most compatible with Corral's esophagus in the appropriate endoscopic findings. -- Squamous mucosa with no significant histopathologic abnormalities. -- No evidence of dysplasia or malignancy. Performed By: #### S #### [facility] CLIA [id number] [address] [place] [address] FINAL PERFORMING LAB Normal [facility] Comment on above: Order Comment: Speci men Type: TISSUE SPECIMEN Ordering Facility: [facility] Address: [address] [place] [address] Result Comment: Diag nostic interpretation performed at [facility], [address] [place] [address] CLIA# [id number] Organic Lab Worker: Osman Perez M.D. Performed By: #### S #### [facility] CLIA [id number] [address] [place] [address] GROSS DESCRIPTION Normal [facility] Comment on above: Order Comment: Speci men Type: TISSUE SPECIMEN Ordering Facility: [facility] Address: [address], [place] [address] Result Comment: A. E sophagogastric Junction, Biopsy Received in formalin labeled esophagogastric junction biopsy are multiple pieces of chowdary, soft tissue aggregating to 1.3 x 1.0 x 0.2 cm. Totally submitted in one cassette. Gross examination performed at [facility], [address] August 31, 2024 3:19 PM Performed By: #### S #### [facility] CLIA [id number] [address] CNPNon 07-15-2024 CNPN Telephone (AGGENS3) MU LINCOLN ([id number]) 1940 F Date Time Provider Department 07/15/24 YAW APPLE3 During your visit today, we recorded the following information about you: Yong Mcdonald, RN 07/15/2024 3:33 PM Signed Patient called last week and left a message about scheduling an EGD (for Corral's surveillance) AND colonoscopy (due in 2024). I called the patient back today and gave her the date of 08/28/24 at 11:30 [facility] agreed with that appointment. Patient then shared with me she was hospitalized at [facility] in June with constipation and possible bowel obstruction. They gave me enemas which didn't really work. Then they did a CT and once I drank the contrast everything opened up. The surgeon recommended I try to have the colonoscopy this year. I called [facility] radiology dept and asked them to push the abdominal CT, UGI w/SBFT AND plain abdominal films from 06/21/24 to [facility]. I told Mu I will share all this info with Dr. Apple. She thanked me for the call. Yong Mcdonald RN Allergies As of Date: 07/15/2024 (No Known Allergies) Date Reviewed: 12/13/2023 Reviewed by: Hailee Paniagua, RUPA - Fully Assessed Reason for Visit: Future Appointment [256] Cmt: EGD AND colonoscopy Prescriptions as of 07/15/2024 - famotidine (PEPCID) 20 mg tablet take 1 tablet by mouth twice a day before meals - cinacalcet (SENSIPAR) 30 mg tablet Take 30 mg by mouth once daily. - Vit A,C,X-Yryy-Mhaqmy (PRESERVISION AREDS) 14,320-226-200 eqao-ov-obwl cap Take by mouth. - denosumab (PROLIA) 60 mg/mL Inject 60 mg subcutaneously one time only. Every 6 months - Lactobac no.41/Bifidobact no.7 (PROBIOTIC-10 ORAL) Take by mouth. - Biotin 10,000 mcg cap Take by mouth once daily. - alprazolam (XANAX ORAL) Take 0.25 mg by mouth daily at bedtime. - lisinopril 2.5 mg tablet Take 5 mg by mouth once daily. - Magnesium Hydroxide 400 mg (170 mg) chew Take 250 Each by mouth daily at bedtime. - mycophenolate Mofetil (CELLCEPT) 500 mg tablet Take 500 mg by mouth twice daily. - tacrolimus IR (PROGRAF) 1 mg capsule 1 mg twice daily. - Cholecalciferol, Vitamin D3, 3,000 unit tab Take 1,000 Units by mouth once daily. - LEVOTHYROXINE 75 MCG TAB Take one(1) tablet daily. 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] 01/26/2011 Family history of GI malignancy [Z80.0] 08/23/2014 Personal history of colonic polyps [Z86.0100] 08/23/2014 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 [K22.70] 08/20/2016 Hernia, hiatal [K44.9] 10/22/2017 Gastroesophageal reflux disease [K21.9] 10/22/2017 Hiatal hernia [K44.9] 08/05/2018 GERD with esophagitis [K21.00] 08/05/2018 GERD (gastroesophageal reflux disease) [K21.9] 10/23/2018 Generalized abdominal pain [R10.84] 01/23/2019 Kidney transplant recipient [Z94.0] 2010 Dermatochalasis of both upper eyelids [H02.831,*12/15/2021 12/15/2021 Pre-op exam [Z01.818] 12/13/2023 Hypothyroidism [E03.9] 12/13/2023 Encounter Status:Closed by YONG MCDONALD on 07/15/24 [facility] Reticulocyte hemoglobin equi valent (RET-He) measurementOrdered By: Reji Kohli on 06-25-2024 Hemoglobin (Reticulocytes) [Entitic mass] 33.3 pg 30-35 [facility] Reticulocytes Auto (Bld) [#/ Vol]Ordered By: Reji Kohli on 06-25-2024 Reticulocytes/100 RBC (Bld) 1.97 % High 0.5-1.5 [facility] Vitamin B12 measurementOrder ed By: Reji Kohli on 06-25-2024 Cobalamin (Vitamin B12) [Mass/Vol] 584 pg/mL 211-911 [facility] CNPNon 12-17-2023 CNP Telephone (AGGENS3) MU LINCOLN ([id number]) 1940 F Date Time Provider Department 12/17/23 YAW APPLE During your visit today, we recorded the following information about you: Yong Mcdonald RN 12/17/2023 2:04 PM Addendum ----- Message from Yaw Apple MD sent at 12/17/2023 10:16 AM EST ----- Please call and tell her pathology consistent with her Corral's esophagus. No dysplasia. Repeat EGD in 2 years. At that point she will actually need a office appointment prior to the endoscopy because she will be 85 years old. I shared the results and recommendations above with the patient. She stated that she is due for a colonoscopy next year, so she may just schedule both at the same time. Patient's current GERD QOL score =0. Patient thanked me for the call. Epic recall scheduled. Yong Mcdonald RN Allergies As of Date: 12/17/2023 (No Known Allergies) Date Reviewed: 12/13/2023 Reviewed by: Hailee Paniagua, RUPA - Fully Assessed Reason for Visit: Results [95] Prescriptions as of 12/17/2023 - famotidine (PEPCID) 20 mg tablet take 1 tablet by mouth twice a day before meals - cinacalcet (SENSIPAR) 30 mg tablet Take 30 mg by mouth once daily. - Vit A,C,J-Udaz-Gcgknj (PRESERVISION AREDS) 14,320-226-200 agms-po-mhmj cap Take by mouth. - denosumab (PROLIA) 60 mg/mL Inject 60 mg subcutaneously one time only. Every 6 months - Lactobac no.41/Bifidobact no.7 (PROBIOTIC-10 ORAL) Take by mouth. - Biotin 10,000 mcg cap Take by mouth once daily. - alprazolam (XANAX ORAL) Take 0.25 mg by mouth daily at bedtime. - lisinopril 2.5 mg tablet Take 5 mg by mouth once daily. - Magnesium Hydroxide 400 mg (170 mg) chew Take 250 Each by mouth daily at bedtime. - mycophenolate Mofetil (CELLCEPT) 500 mg tablet Take 500 mg by mouth twice daily. - tacrolimus IR (PROGRAF) 1 mg capsule 1 mg twice daily. - Cholecalciferol, Vitamin D3, 3,000 unit tab Take 1,000 Units by mouth once daily. - LEVOTHYROXINE 75 MCG TAB Take one(1) tablet daily. 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] 01/26/2011 Family history of GI malignancy [Z80.0] 08/23/2014 Personal history of colonic polyps [Z86.010] 08/23/2014 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 [K22.70] 08/20/2016 Hernia, hiatal [K44.9] 10/22/2017 Gastroesophageal reflux disease [K21.9] 10/22/2017 Hiatal hernia [K44.9] 08/05/2018 GERD with esophagitis [K21.00] 08/05/2018 GERD (gastroesophageal reflux disease) [K21.9] 10/23/2018 Generalized abdominal pain [R10.84] 01/23/2019 Kidney transplant recipient [Z94.0] 2010 Dermatochalasis of both upper eyelids [H02.831,*12/15/2021 12/15/2021 Pre-op exam [Z01.818] 12/13/2023 Hypothyroidism [E03.9] 12/13/2023 Questionnaire: AG GERD HEALTH RELATED QUALITY OF LIFE Surgery/Baclofen dose -> On PPI'S -> PETRA: DATE 1. How bad is the heartburn? -> 0 No Symptoms 2. Heartburn when lying down? -> 0 No Symptoms 3. Heartburn when standing up? -> 0 No Symptoms 4. Heartburn after meals? -> 0 No Symptoms 5. Does heartburn change your diet? -> 0 No Symptoms 6. Does heartburn wake you from sleep? -> 0 No Symptoms 7. Do you have difficulty swallowing -> 0 No Symptoms 8. Do you have pain with swallowing? -> 0 No Symptoms 9. If you take medication, does this affect your daily life? -> 0 No Symptoms 10. How bad is the regurgitation? -> 0 No Symptoms 11. Regurgitation when lying down? -> 0 No Symptoms 12. Regurgitation when standing up? -> 0 No Symptoms 13. Regurgitation after meals? -> 0 No Symptoms 14. Does regurgitation change your diet? -> 0 No Symptoms 15. Does regurgitation wake you from sleep? -> 0 No Symptoms TOTAL - HEARTBURN 1-9 -> 0 TOTAL - REGURG 10-15 -> 0 Total -> 0 16. 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 PACU/ICU Patient Condition: stable. Anticipated Disposition: phase 2 then home. Neurological Status: aware and responsive. Pulmonary Status: breathing comfortably on room air Airway Control: returned to baseline unsupported. Cardiovascular Status: stable. Pain Management: clinically adequate Postoperative Hydration: acceptable. Intraoperative Events: no significant anesthesia events Post Operative Nausea/Vomiting Status: no significant post operative nausea or vomiting Recommendation: continue current plan of care. Anesthesia Observations No Documentation SIGNATURE: Saul Wilson MD PATIENT NAME: Mu Lincoln DATE: December 13, 2023 TIME: 3:01 PM CSN: [id number] [facility] ANES PRE-OPon 12-13-2023 ANES PRE-OP HNO ID: [id number] Author: SAUL WILSON MD Service: Anesthesiology Author Type: Physician Type: Anesthesia Preprocedure Evaluation Filed: 12/13/2023 08:50 Note Text: ANESTHESIOLOGY DAY OF SURGERY NOTE : 1940 Procedure Information Date/Time: 12/13/23 09 Scheduled providers: Yaw Apple MD Procedure: EGD DIAGNOSTIC Location: [facility] Estimated body mass index is 18.6 kg/m? as calculated from the following: Height as of this encounter: 160 cm (5' 3). Weight as of this encounter: 47.6 kg (105 lb). Most recent hematocrit and potassium results: Hematocrit 29.1 10/24/2018 Potassium 4.9 10/24/2018 Relevant Problems CARDIO (+) Internal hemorrhoids without mention of complication GI (+) Esophageal reflux (+) GERD (gastroesophageal reflux disease) (+) Gastroesophageal reflux disease (+) Hernia, hiatal (+) Hiatal hernia -RENAL (+) Chronic kidney disease (CKD) (+) End stage renal disease (HCC) NEURO-PSYCH (+) Personal history of colonic polyps I - PHYSICAL EVALUATION AIRWAY Patient intubated: No. Tracheostomy tube not present Mallampati: II. TM distance: >3 FB. Neck ROM: full ROM without neurological symptoms. Mouth opening: adequate. Short neck: no. Thick neck: no DENTAL Dental findings: teeth intact. Additional exam findings: no II - ANESTHESIA PLAN ASA Score: 3 Anesthetic Plan: MAC The patient is not a current smoker. NPO Status: adequate Anesthetic plan additional comments: GERD/BArretts Hx kidney transplant . Beta Carson Monitoring Plan Monitoring plan: standard ASA. Post Procedure Analgesic Plan Postoperative analgesic plan: multimodal analgesia. Informed Consent Anesthetic risks, benefits, alternatives, personnel and consent discussed: yes. Patient / Responsible Democrat agrees to proceed: yes Patient / Surrogate agrees to blood products: blood products not planned Significant changes in the patient condition since the History and Physical, not otherwise documented in primary service progress note: no. Potential Anesthesia issues that may suggest increased risk of complications or contraindication to planned procedure: none. Vitals Value Taken Time BP 136/83 12/13/23825 Pulse 71 12/13/23825 Resp 16 12/13/23825 Temp 36.2 ?C (97.2 ?F) 12/13/23825 SpO2 100 % 12/13/23825 Outpatient Medications as of 12/13/2023 Medication Sig - famotidine (PEPCID) 20 mg tablet take 1 tablet by mouth twice a day before meals - cinacalcet (SENSIPAR) 30 mg tablet Take 30 mg by mouth once daily. - Vit A,C,V-Htha-Fbeigu (PRESERVISION AREDS) 14,320-226-200 mubu-td-uwsc cap Take by mouth. - denosumab (PROLIA) 60 mg/mL Inject 60 mg subcutaneously one time only. Every 6 months - Biotin 10,000 mcg cap Take by mouth once daily. - alprazolam (XANAX ORAL) Take 0.25 mg by mouth daily at bedtime. - lisinopril 2.5 mg tablet Take 5 mg by mouth once daily. - Magnesium Hydroxide 400 mg (170 mg) chew Take 250 Each by mouth daily at bedtime. - mycophenolate Mofetil (CELLCEPT) 500 mg tablet Take 500 mg by mouth twice daily. - tacrolimus IR (PROGRAF) 1 mg capsule 1 mg twice daily. - Cholecalciferol, Vitamin D3, 3,000 unit tab Take 1,000 Units by mouth once daily. - LEVOTHYROXINE 75 MCG TAB Take one(1) tablet daily. - Lactobac no.41/Bifidobact no.7 (PROBIOTIC-10 ORAL) Take by mouth. - famotidine (PEPCID) 40 mg tablet Take 20 mg by mouth once daily. Facility-Administered Medications as of 12/13/2023 Medication Dose Route Frequency - lidocaine 10 mg/mL (1 %) 1-2 mg injection (XYLOCAINE) 0.1-0.2 mL INTRADERMAL PRN - lactated ringers iv infusion 30 mL/hr INTRAVENOUS CONTINUOUS I have interviewed and examined the patient. I have reviewed the medical record and/or the pre-anesthesia evaluation, pertinent labs, and test results. This contains updated information obtained within 48 hours of Surgery/Procedure. SIGNATURE: Saul Wilson MD PATIENT NAME: Mu Lincoln DATE: December 13, 2023 TIME: 8:48 AM CSN: [id number] [facility] HISTORY PHYSICALon HISTORY PHYSICAL HNO ID: [id number] Author: GE SKELTON APRN.SWAGING MACHINE OPERATOR Service: Nursing Author Type: Nurse Practitioner Type: H&P Filed: 12/13/2023 08:55 Note Text: HISTORY AND PHYSICAL EXAMINATION SERVICE DATE: 12/13/2023 SERVICE TIME: 8:25 AM PRIMARY CARE PHYSICIAN: Osman See MD REASON FOR VISIT: The reason for this visit is To perform a comprehensive review of the patients past medical history, assess their current health status and obtain any additional testing required based on anesthesia guidelines. To assess and identify potential anesthesia problems, particularly those that may suggest potential complications or contraindications to the planned procedure. The patient has the following: ACTIVE PROBLEM [...] Without Dysplasia Hernia, Hiatal Gastroesophageal Reflux Disease Hiatal Hernia Gerd With Esophagitis Gerd (Gastroesophageal Reflux Disease) Generalized Abdominal Pain Kidney Transplant Recipient Pre-Op Exam Hypothyroidism Subjective CHIEF COMPLAINT: Preoperative Examination HPI: Patient present to [facility] for the above procedure. Patient here for routine Upper GI Endoscopy screening. Patient reports hx of Corral's esophagus. Patient denies any N/V/D or constipation. Denies any abdominal pain. Denies any melena, hematochezia, or hematemesis. Patient denies any other problems at this time. Denies any family history of Colon cancer or other Gastric ca. Patient agreed to planned procedure. METS: Climb a flight of stairs or walk up a hill (5.50 METs) Patient denies any CP/SOB with above activity. 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) Anemia, unspecified 12/18/2005 Corral's esophagus determined by biopsy Benign neoplasm of colon 10/14/2001 by colonoscopy Chronic kidney disease (CKD) transplant 2010 Diverticulosis of colon (without mention of hemorrhage) Esophageal reflux Generalized osteoarthrosis, unspecified site hands, but no frequent nsaids GERD (gastroesophageal reflux disease) Hemorrhage of rectum and anus Hiatal hernia with gastroesophageal reflux Internal hemorrhoids without mention of complication Osteoporosis Pure hypercholesterolemia due to CKD Unspecified hypothyroidism PAST SURGICAL HISTORY Procedure Laterality Date ARTERIOVENOUS ANASTOMOSIS OPEN DIRECT Left 02/19/2011 ; PARATHYROIDECTOMY/EXPL PARATHYRD 04/2013 COLONOSCOPY FLX DX W/COLLJ SPEC WHEN PFRMD 12/26/2000 Colonoscopy [facility] COLONOSCOPY FLX DX W/COLLJ SPEC WHEN PFRMD 07/22/2006 COLONOSCOPY FLX DX W/COLLJ SPEC WHEN PFRMD 09/10/2017 Colonoscopy COLONOSCOPY W/BIOPSY SINGLE/MULTIPLE 08/30/2009 right and left sided diverticulosis, 10cm mucosal irritation (prolapse) COLSC FLX W/RMVL OF TUMOR POLYP LESION SNARE TQ 12/18/2005 EGD TRANSORAL BIOPSY SINGLE/MULTIPLE 08/07/2017 Corral's without dysplasia EGD TRANSORAL BIOPSY SINGLE/MULTIPLE 03/05/2018 Corral's without dysplasia EGD TRANSORAL BIOPSY SINGLE/MULTIPLE 03/13/2019 Corral's without dysplasia; Dr. Apple EGD TRANSORAL BIOPSY SINGLE/MULTIPLE 09/16/2019 Corral's without dysplasia; Dr. Apple EGD WITH BIOPSY(S) 11/03/2021 Corral's without dyplasia; Dr. Apple ESOPHAGEAL MOTILITY STUDY W/INTERPANDRPT 03/05/2018 ESOPHAGOSCOPY FLEX TRANSORAL LESION ABLATION 12/14/2016 ESOPHAGOSCOPY FLEX TRANSORAL LESION ABLATION 10/22/2016 ESOPHAGOSCOPY FLEX TRANSORAL LESION ABLATION 03/21/2017 ESOPHAGOSCOPY FLEX TRANSORAL LESION ABLATION 05/08/2017 ESOPHAGOSCOPY FLEX TRANSORAL LESION ABLATION 11/13/2017 ESOPHAGOSCOPY FLEX TRANSORAL LESION ABLATION 12/25/2017 ESOPHAGOSCOPY FLEX TRANSORAL LESION ABLATION 05/15/2019 #1; Dr. Apple ESOPHAGOSCOPY FLEX TRANSORAL LESION ABLATION 07/22/[address] #[address] 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 [facility] LAPS RPR PARAESPHGL HRNA INCL FUNDPLSTY W/MESH 10/23/2018 Dr. Apple PAST SURGICAL HISTORY OF Left 07/2005 fistula put in arm PAST SURGICAL HISTORY OF 07/2013 removal of fistula PAST SURGICAL HISTORY OF 01/2009 failed kidney transplant REPAIR INCISIONAL HERNIA 10/2011 at renal transplant si (more content not included)... Normal [facility] OPERATIVE NOon 12-13-2023 OPERATIVE NO HNO ID: [id number] Author: YAW APPLE MD Service: General Surgery Author Type: Physician Type: Operative Report Filed: 12/13/2023 09:15 Note Text: OPERATIVE/PROCEDURE REPORT LOG ID: [id number] SURGERY/PROCEDURE DATE: 12/13/2023 INCISION/PROCEDURE START TIME: 8:59 AM INCISION CLOSE/PROCEDURE END TIME: 9:09 AM SURGEON(S)/PROCEDURALIST(S) AND WAREHOUSE RECEIVING CLERK(S): Yaw Apple MD - Proceduralist No Additional Staff SURGERY/PROCEDURE(S): EGD with biopsy ANESTHESIA: Monitored Anesthesia Care SURGERY/PROCEDURE DETAILS: Patient is a 83-year-old female with a history of Corral's esophagus and presents today for surveillance. The risks, benefits and complications were reviewed including but not limited to bleeding, infection, missing a lesion, effects of anesthesia and perforation possibly requiring an emergency surgery. Patient brought to the endoscopy suite and routine monitors performed. She was placed in left lateral position. After adequate MAC anesthesia was obtained the scope was inserted passed on the esophagus. Z-line noted to be about 32 cm. There is a length of Corral's esophagus from 30 to 32 cm. It was mostly on 1 side. Scope was inserted retroflexed view showed the Petra to be a little loose. Remainder the stomach on the second portion of the duodenum were normal. The scope was then withdrawn and multiple biopsies were obtained of the distal esophagus starting distally moving proximally all areas of concern of Corral's esophagus were biopsied. We did this in quadrants 2 cm apart. Air was aspirated stomach and the scope was withdrawn. She taught the procedure well. PRE-OP/PRE-PROCEDURE DIAGNOSIS: Corral's esophagus POST-OP/POST-PROCEDURE DIAGNOSIS: Same as Preop ESTIMATED BLOOD LOSS: 0 ml SPECIMENS: Distal esophageal biopsies IMPLANTABLE DEVICES: NONE DRAINS: None COMPLICATIONS: None PARTICIPATION IN SURGERY/PROCEDURE: I/primary surgeon/proceduralist performed the entire procedure. SIGNATURE: Yaw Apple MD PATIENT NAME: Mu Lincoln DATE: December 13, 2023 TIME: 9:13 AM Normal [facility] SURGICAL PATHOLOGYon CASE REPORT Normal [facility] Comment on above: Order Comment: Specjavy higuera Type: TISSUE SPECIMEN Ordering Facility: [facility] Address: [address] [place] [address] Result Comment: Surg ical Pathology Report Case: [id number] Authorizing Provider: Yaw Apple, Collected: 12/13/2023 09:02 AM Ordering Location: [facility] Received: 12/13/2023 03:16 PM Pathologist: Lisa Adams MD Specimen: ESOPHAGUS BIOPSY, DISTAL ESOPHAGUS BIOPSIES Performed By: #### S #### [facility] CLIA [id number] [address] FINAL DIAGNOSIS Normal [facility] Comment on above: Order Comment: Speci kalen Type: TISSUE SPECIMEN Ordering Facility: [facility] Address: [address] [place] [address] Result Comment: Esop hagus, distal, biopsy: - Squamocolumnar mucosa with intestinal metaplasia, consistent with a known history of Corral's esophagus. - Negative for dysplasia and negative for malignancy. Performed By: #### S #### [facility] CLIA [id number] [address] FINAL PERFORMING LAB Normal [facility] Comment on above: Order Comment: Speci men Type: TISSUE SPECIMEN Ordering Facility: [facility] Address: [address] [place] [address] Result Comment: Diag nostic interpretation performed at [facility], [address] [place] [address] CLIA# [id number] Organic Lab Worker: Osman Perez M.D. Performed By: #### S #### [facility] CLIA [id number] [address] GROSS DESCRIPTION Normal [facility] Comment on above: Order Comment: Speci men Type: TISSUE SPECIMEN Ordering Facility: [facility] Address: [address] [place] [address] Result Comment: Rose Mary ALONSO BIOPSY Received in formalin labeled distal esophagus biopsies are multiple pieces of chowdary, soft tissue aggregating to 1.5 x 1.0 x 0.2 cm. Totally submitted in one cassette. Gross examination performed at [facility], [address] [place] [address] CLIA#[id number] [facility] December 16, 2023 4:13 PM Performed By: #### S #### [facility] CLIA [id number] [address] [place] Basophil percentageon 2023 Basophil percentage 3.0 mg/dL 2.5-4.9 [facility] Chloride [Moles/Vol] 107 mmol/L 98-107 [facility] Glucose [Mass/Vol] 92 mg/dL 74-106 [facility] Hemoglobin (Bld) [Mass/Vol] 11.1 g/dL 12.0-15.0 [facility] Potassium [Moles/Vol] 4.1 mmol/L 3.5-5.1 [facility] Sodium [Moles/Vol] 135 mmol/L 136-145 [facility] WBC (Bld) [#/Vol] 5.1 10*3/uL 4.4-11.0 [facility] Determination of erythrocyte mean corpuscular volume (MCV)on 11-20-2023 MCV (RBC) [Entitic vol] 91.0 fL 81-99 [facility] Erythrocyte distribution wid th ratioon 11-20-2023 Erythrocyte distribution width (RBC) [Ratio] 14.6 % 11.6-14.6 [facility] Erythrocyte distribution wid th standard deviationon 11-20-2023 Erythrocyte distribution width (RBC) [Entitic vol] 49.1 fL 35.1-43.9 [facility] Hematocrit Auto (Bld) [Volum e fraction]on 11-20-2023 Hematocrit (Bld) [Volume fraction] 34.4 % 37-47 [facility] Laboratory - Chemistry and C hemistry - challengeon 11-20-2023 CO2 [Moles/Vol] 22.0 mmol/L 21.0-32.0 [facility] Magnesium [Mass/Vol] 2.1 mg/dL 1.6-2.6 [facility] Urea nitrogen/Creatinine [Mass ratio] 22.7 mg/mg 10-20 [facility] Laboratory - Hematology and Cell countson 11-20-2023 MCH (RBC) [Entitic mass] 29.4 pg 27.0-32.0 [facility] MCHC (RBC) [Mass/Vol] 32.3 g/dL 32-36 [facility] Platelet mean volume (Bld) [Entitic vol] 10.7 fL 6.2-12.0 [facility] Platelets (Bld) [#/Vol] 266 10*3/uL 150-450 [facility] No Panel Informationon 11-20 Estimated GFR (MDRD) Amer 61 mL/min >60 [facility] Comment on above: GFR Calc Estimated GFR (MDRD) Non-Af Amer 50 mL/min >60 [facility] Comment on above: Non- GFR Calc Parathyroid Hormone (Intact) 338.7 pg/mL 18.4-80.1 [facility] Tacrolimus (Prograf) Level 7.0 ng/mL 2.0-20.0 [facility] Comment on above: Trough (immediately following transplant) 15.0 Trough (steady state, 2 weeks or more after transplant): 3.0 - 8.0 Performed by LC-MS/MS technology.Performed at: [facility] [id number] Director: Su Iraheta MD, Phone: [phone] Vitamin D 25-Hydroxy 52.2 ng/mL [facility] Comment on above: Vitamin D 25(OH) Sta tus Range Deficiency <20 ng/mL (50nmol/L) Insufficiency 20 - 30 ng/mL (50 - 75 nmol/L) Sufficiency 30 - 100 ng/mL (75 - 250 nmol/L) Toxicity >100 ng/mL (>250 nmol/L) RBC Auto (Bld) [#/Vol]on RBC (Bld) [#/Vol] 3.78 10*6/uL 4.2-5.4 [facility] Serum or plasma calcium castro urement (mass/volume)on 11-20-2023 Calcium [Mass/Vol] 7.5 mg/dL 8.5-10.1 [facility] Serum or plasma creatinine m easurement (mass/volume)on 11-20-2023 Creatinine [Mass/Vol] 1.10 mg/dL 0.55-1.02 [facility] Comment on above: The validity of the calculated GFR & GFRAA in patients over 70 years has not been determined. Clinical correlation is essential. Serum or plasma urea nitroge n measurement (mass/volume)on 11-20-2023 Urea nitrogen [Mass/Vol] 25 mg/dL 7-18 [facility] Thin prep Papanicolaou smear with manual screeningon 11-20-2023 Protein (U) [Mass/Vol] 156.7 mg/dL 0.0-11.8 [facility] Thin prep Papanicolaou smear with manual screening 3.2 g/dL 3.2-5.0 [facility] Urine creatinine measurement (mass/volume)on 11-20-2023 Creatinine (U) [Mass/Vol] 81.60 mg/dL NO RANGE EST. [facility] Urine protein/creatinine mas s ratioon 11-20-2023 Protein/Creatinine (U) [Mass ratio] 1920 mg/g CRE 0-200 [facility] Basophil percentageon 2022 Basophil percentage 3.5 mg/dL 2.5-4.9 [facility] Chloride [Moles/Vol] 107 mmol/L 98-107 [facility] Glucose [Mass/Vol] 96 mg/dL 74-106 [facility] Potassium [Moles/Vol] 4.6 mmol/L 3.5-5.1 [facility] Sodium [Moles/Vol] 138 mmol/L 136-145 [facility] WBC (Bld) [#/Vol] 5.8 10*3/uL 4.4-11.0 [facility] Blood erythrocytes count (nu mber/volume)on 08-14-2023 RBC (Bld) [#/Vol] 4.20 10*6/uL 4.2-5.4 [facility] Blood hemoglobin measurement (mass/volume)on 08-14-2023 Hemoglobin (Bld) [Mass/Vol] 12.4 g/dL 12.0-15.0 [facility] Blood platelet mean volumeon 08-14-2023 Platelet mean volume (Bld) [Entitic vol] 10.7 fL 6.2-12.0 [facility] Determination of erythrocyte mean corpuscular volume (MCV)on 08-14-2023 MCV (RBC) [Entitic vol] 91.4 fL 81-99 [facility] Hematocrit Auto (Bld) [Volum e fraction]on 08-14-2023 Hematocrit (Bld) [Volume fraction] 38.4 % 37-47 [facility] Laboratory - Chemistry and C hemistry - challengeon 08-14-2023 CO2 [Moles/Vol] 24.0 mmol/L 21.0-32.0 [facility] Magnesium [Mass/Vol] 2.0 mg/dL 1.6-2.6 [facility] Urea nitrogen/Creatinine [Mass ratio] 18.3 mg/mg 10-20 [facility] Laboratory - Hematology and Cell countson 08-14-2023 Erythrocyte distribution width (RBC) [Entitic vol] 49.6 fL 35.1-43.9 [facility] Erythrocyte distribution width (RBC) [Ratio] 14.8 % 11.6-14.6 [facility] MCH (RBC) [Entitic mass] 29.5 pg 27.0-32.0 [facility] MCHC Auto (RBC) [Mass/Vol]on 08-14-2023 MCHC (RBC) [Mass/Vol] 32.3 g/dL 32-36 [facility] No Panel Informationon 08-14 Estimated GFR (MDRD) Amer 55 mL/min >60 [facility] Comment on above: GFR Calc Estimated GFR (MDRD) Non-Af Amer 46 mL/min >60 [facility] Comment on above: Non- GFR Calc Parathyroid Hormone (Intact) 334.9 pg/mL 18.4-80.1 [facility] Tacrolimus (Prograf) Level 6.9 ng/mL 2.0-20.0 [facility] Comment on above: Trough (immediately following transplant) 15.0 Trough (steady state, 2 weeks or more after transplant): 3.0 - 8.0 Performed by LC-MS/MS technology.Performed at: [facility] [place] [facility] [id number] Director: Su Iraheta MD, Phone: [phone] Vitamin D 25-Hydroxy 54.8 ng/mL [facility] Comment on above: Vitamin D 25(OH) Sta tus Range Deficiency <20 ng/mL (50nmol/L) Insufficiency 20 - 30 ng/mL (50 - 75 nmol/L) Sufficiency 30 - 100 ng/mL (75 - 250 nmol/L) Toxicity >100 ng/mL (>250 nmol/L) Platelets bldon 08-14-2023 Platelets (Bld) [#/Vol] 255 10*3/uL 150-450 [facility] Serum or plasma albumin castro urement (mass/volume)on 08-14-2023 Albumin [Mass/Vol] 3.4 g/dL 3.2-5.0 [facility] Serum or plasma calcium castro urement (mass/volume)on 08-14-2023 Calcium [Mass/Vol] 7.9 mg/dL 8.5-10.1 [facility] Serum or plasma creatinine m easurement (mass/volume)on 08-14-2023 Creatinine [Mass/Vol] 1.20 mg/dL 0.55-1.02 [facility] Comment on above: The validity of the calculated GFR & GFRAA in patients over 70 years has not been determined. Clinical correlation is essential. Serum or plasma urea nitroge n measurement (mass/volume)on 08-14-2023 Urea nitrogen [Mass/Vol] 22 mg/dL 7-18 [facility] Urine creatinine measurement (mass/volume)on 08-14-2023 Creatinine (U) [Mass/Vol] 116.00 mg/dL NO RANGE EST. [facility] Urine protein measurement (m ass/volume)on 08-14-2023 Protein (U) [Mass/Vol] 245.7 mg/dL 0.0-11.8 [facility] Urine protein/creatinine mas s ratioon 08-14-2023 Protein/Creatinine (U) [Mass ratio] 2118 mg/g CRE 0-200 [facility] Basophil percentageon 2022 Basophil percentage 3.4 mg/dL 2.5-4.9 [facility] Chloride [Moles/Vol] 108 mmol/L 98-107 [facility] Glucose [Mass/Vol] 89 mg/dL 74-106 [facility] Potassium [Moles/Vol] 4.3 mmol/L 3.5-5.1 [facility] Sodium [Moles/Vol] 137 mmol/L 136-145 [facility] WBC (Bld) [#/Vol] 5.0 10*3/uL 4.4-11.0 [facility] Blood erythrocytes count (nu mber/volume)on 05-15-2023 RBC (Bld) [#/Vol] 4.10 10*6/uL 4.2-5.4 [facility] Blood hemoglobin measurement (mass/volume)on 05-15-2023 Hemoglobin (Bld) [Mass/Vol] 12.1 g/dL 12.0-15.0 [facility] Blood platelet mean volumeon 05-15-2023 Platelet mean volume (Bld) [Entitic vol] 10.9 fL 6.2-12.0 [facility] Determination of erythrocyte mean corpuscular volume (MCV)on 05-15-2023 MCV (RBC) [Entitic vol] 92.0 fL 81-99 [facility] Hematocrit Auto (Bld) [Volum e fraction]on 05-15-2023 Hematocrit (Bld) [Volume fraction] 37.7 % 37-47 [facility] Laboratory - Chemistry and C hemistry - challengeon 05-15-2023 CO2 [Moles/Vol] 22.0 mmol/L 21.0-32.0 [facility] Magnesium [Mass/Vol] 2.0 mg/dL 1.6-2.6 [facility] Urea nitrogen/Creatinine [Mass ratio] 24.4 mg/mg 10-20 [facility] Laboratory - Hematology and Cell countson 05-15-2023 Erythrocyte distribution width (RBC) [Entitic vol] 50.0 fL 35.1-43.9 [facility] Erythrocyte distribution width (RBC) [Ratio] 15.0 % 11.6-14.6 [facility] MCH (RBC) [Entitic mass] 29.5 pg 27.0-32.0 [facility] MCHC Auto (RBC) [Mass/Vol]on 05-15-2023 MCHC (RBC) [Mass/Vol] 32.1 g/dL 32-36 [facility] No Panel Informationon 05-15 Estimated GFR (MDRD) Amer 54 mL/min >60 [facility] Comment on above: GFR Calc Estimated GFR (MDRD) Non-Af Amer 44 mL/min >60 [facility] Comment on above: Non- GFR Calc Parathyroid Hormone (Intact) 276.7 pg/mL 18.4-80.1 [facility] Tacrolimus (Prograf) Level 7.3 ng/mL 2.0-20.0 [facility] Comment on above: Trough (immediately following transplant) 15.0 Trough (steady state, 2 weeks or more after transplant): 3.0 - 8.0 Performed by LC-MS/MS technology.Performed at: [address] [id number] Director: Su Iraheta MD, Phone: [phone] Vitamin D 25-Hydroxy 47.6 ng/mL [facility] Comment on above: Vitamin D 25(OH) Sta tus Range Deficiency <20 ng/mL (50nmol/L) Insufficiency 20 - 30 ng/mL (50 - 75 nmol/L) Sufficiency 30 - 100 ng/mL (75 - 250 nmol/L) Toxicity >100 ng/mL (>250 nmol/L) Platelets bldon 05-15-2023 Platelets (Bld) [#/Vol] 258 10*3/uL 150-450 [facility] Serum or plasma albumin castro urement (mass/volume)on 05-15-2023 Albumin [Mass/Vol] 3.4 g/dL 3.2-5.0 [facility] Serum or plasma calcium castro urement (mass/volume)on 05-15-2023 Calcium [Mass/Vol] 7.6 mg/dL 8.5-10.1 [facility] Serum or plasma creatinine m easurement (mass/volume)on 05-15-2023 Creatinine [Mass/Vol] 1.23 mg/dL 0.55-1.02 [facility] Comment on above: The validity of the calculated GFR & GFRAA in patients over 70 years has not been determined. Clinical correlation is essential. Serum or plasma urea nitroge n measurement (mass/volume)on 05-15-2023 Urea nitrogen [Mass/Vol] 30 mg/dL 7-18 [facility] Urine creatinine measurement (mass/volume)on 05-15-2023 Creatinine (U) [Mass/Vol] 85.70 mg/dL NO RANGE EST. [facility] Urine protein measurement (m ass/volume)on 05-15-2023 Protein (U) [Mass/Vol] 106.5 mg/dL 0.0-11.8 [facility] Urine protein/creatinine mas s ratioon 05-15-2023 Protein/Creatinine (U) [Mass ratio] 1243 mg/g CRE 0-200 [facility] Basophil percentageon 2022 Basophil percentage 3.9 mg/dL 2.5-4.9 [facility] Chloride [Moles/Vol] 105 mmol/L 98-107 [facility] Glucose [Mass/Vol] 94 mg/dL 74-106 [facility] Potassium [Moles/Vol] 4.3 mmol/L 3.5-5.1 [facility] Sodium [Moles/Vol] 134 mmol/L 136-145 [facility] WBC (Bld) [#/Vol] 4.9 10*3/uL 4.4-11.0 [facility] Blood erythrocytes count (nu mber/volume)on 02-11-2023 RBC (Bld) [#/Vol] 4.29 10*6/uL 4.2-5.4 [facility] Blood hemoglobin measurement (mass/volume)on 02-11-2023 Hemoglobin (Bld) [Mass/Vol] 12.6 g/dL 12.0-15.0 [facility] Blood platelet mean volumeon 02-11-2023 Platelet mean volume (Bld) [Entitic vol] 10.3 fL 6.2-12.0 [facility] Determination of erythrocyte mean corpuscular volume (MCV)on 02-11-2023 MCV (RBC) [Entitic vol] 90.7 fL 81-99 [facility] Hematocrit Auto (Bld) [Volum e fraction]on 02-11-2023 Hematocrit (Bld) [Volume fraction] 38.9 % 37-47 [facility] Laboratory - Chemistry and C hemistry - challengeon 02-11-2023 CO2 [Moles/Vol] 23.0 mmol/L 21.0-32.0 [facility] Magnesium [Mass/Vol] 1.9 mg/dL 1.6-2.6 [facility] Urea nitrogen/Creatinine [Mass ratio] 17.7 mg/mg 10-20 [facility] Laboratory - Hematology and Cell countson 02-11-2023 Erythrocyte distribution width (RBC) [Entitic vol] 49.6 fL 35.1-43.9 [facility] Erythrocyte distribution width (RBC) [Ratio] 14.9 % 11.6-14.6 [facility] MCH (RBC) [Entitic mass] 29.4 pg 27.0-32.0 [facility] MCHC Auto (RBC) [Mass/Vol]on 02-11-2023 MCHC (RBC) [Mass/Vol] 32.4 g/dL 32-36 [facility] No Panel Informationon 02-11 Estimated GFR (MDRD) Amer 53 mL/min >60 [facility] Comment on above: GFR Calc Estimated GFR (MDRD) Non-Af Amer 44 mL/min >60 [facility] Comment on above: Non- GFR Calc Parathyroid Hormone (Intact) 283.4 pg/mL 18.4-80.1 [facility] Tacrolimus (Prograf) Level See comment [facility] Comment on above: TEST RESULTS LIMITST acrolimus (FK506), Blood A, 6.3 ng/mL 2.0-20.0 Trough (immediately following transplant) 15.0 Trough (steady state, 2 weeks or more after transplant): 3.0 - 8.0 Performed by LC-MS/MS technology. TESTING PERFORMED AT [facility]. ORIGINAL REPORT ON FILE IN LAB CONTAINS ADDITIONAL TEST SITE INFORMATION. Vitamin D 25-Hydroxy 60.0 ng/mL [facility] Comment on above: Vitamin D 25(OH) Sta tus Range Deficiency <20 ng/mL (50nmol/L) Insufficiency 20 - 30 ng/mL (50 - 75 nmol/L) Sufficiency 30 - 100 ng/mL (75 - 250 nmol/L) Toxicity >100 ng/mL (>250 nmol/L) Platelets bldon 02-11-2023 Platelets (Bld) [#/Vol] 250 10*3/uL 150-450 [facility] Serum or plasma albumin castro urement (mass/volume)on 02-11-2023 Albumin [Mass/Vol] 3.3 g/dL 3.2-5.0 [facility] Serum or plasma calcium castro urement (mass/volume)on 02-11-2023 Calcium [Mass/Vol] 7.9 mg/dL 8.5-10.1 [facility] Serum or plasma creatinine m easurement (mass/volume)on 02-11-2023 Creatinine [Mass/Vol] 1.24 mg/dL 0.55-1.02 [facility] Comment on above: The validity of the calculated GFR & GFRAA in patients over 70 years has not been determined. Clinical correlation is essential. Serum or plasma urea nitroge n measurement (mass/volume)on 02-11-2023 Urea nitrogen [Mass/Vol] 22 mg/dL 7-18 [facility] Urine creatinine measurement (mass/volume)on 02-11-2023 Creatinine (U) [Mass/Vol] 77.70 mg/dL NO RANGE EST. [facility] Urine protein measurement (m ass/volume)on 02-11-2023 Protein (U) [Mass/Vol] 176.0 mg/dL 0.0-11.8 [facility] Urine protein/creatinine mas s ratioon 02-11-2023 Protein/Creatinine (U) [Mass ratio] 2265 mg/g CRE 0-200 [facility] Established Visit (Nephrolog y)on 11-21-2022 Established Visit (Nephrology) Diagnoses/Problems Immunosuppression (279.9) (D84.9) Kidney replaced by transplant (V42.0) (Z94.0) Added by Problem List Migration; 2013-05-08; Moved to Suppressed Sep 06 2013 4:40PM Orders Kidney replaced by transplant Renew: Mycophenolate Mofetil 250 MG Oral Capsule; take 2 by mouth twice a day Renew: Tacrolimus 1 MG Oral Capsule; TAKE 2 CAPSULE Twice daily Patient Discussion/Summary By signing my name below, I, Emilia Porras, attest that this documentation has been prepared under the direction and in the presence of Dr. Edna Kevin. All medical record entries made by the Scribe were at my direction and personally dictated by me. I have reviewed the chart and agree that the record accurately reflects my personal performance of the history, physical exam, discussion and plan. Provider Impressions This is 82 year old White female with past medical history significant for hypertension, dyslipidemia and End Stage Renal Disease secondary to unknown etiology. Patient underwent the 1st donor renal transplant on 01/12/2009. The first kidney allograft got thrombosed and was removed right after surgery. 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 Here for telephone visit to review lab after starting Sensipar and review blood pressure. Her BP seems to be at the goal around 110-120/70-80 mmhg with Lisinopril initiation. Creatinine is stable 1.2. Her baseline Cr had been around 1.1-1.3. PTH decreased from 434 to 136. Vit D is at goal 45 UPC 0.3 Tacrolimus 5.2 Hb 11.7, WBC 6 PLAN Lab reviewed with patients in length. All questions were answered. Refilled tacrolimus and MMF at specialty per her request Continue current anti-rejection meds Lab q 3 months RTC in person visit in August with me. Gave counseling about vaccination in transplant patients. Information is mailed to patient home address. Time 15 mins Chief Complaint A telephone visit (audio only) between the patient (at the originating site) and the provider (at the distant site) was utilized to provide this telehealth service. Verbal consent was requested and obtained from [facility] on this date, 11/21/2022 02:40 PM , for a telehealth visit. Post kidney transplant follow up. History of Present Illness Post Transplant Follow Up: Referring Provider: Dr. Douglas Aldrich (tel. [phone], fax. [phone]). Ethnicity: White: Not Specified/Unknown. Donor/Transplant Type: A donor renal transplant on: 01/12/2009 (thrombosed, removed after surgery), 03/08/2011. Transplant Course: Other: CLINICAL NURSE MANAGER donor. Rejections: No episodes of rejection. Infection: No episodes of infection. Malignancies After Transplant: No episodes of post transplant malignancy. Subjective: This is 82 year old White female with past medical history significant for hypertension, dyslipidemia and End Stage Renal Disease secondary to unknown etiology. Patient underwent the 1st donor renal transplant on 01/12/2009. The first kidney allograft got thrombosed and was removed right after surgery. 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 Here for telephone visit to review lab after starting Sensipar and review blood pressure. Her BP seems to be at the goal around 110-120/70-80 mmhg with Lisinopril initiation. Patient is otherwise doing well with no complaints. Today, the patient denies any headache, focal weakness, or tingling, sob, headache, cough, fever, chills, vomiting, nausea diarrhea, constipation, difficulty with bladder, dysuria, hematuria. Patient denies difficulty obtaining medications. Patient denies active tobacco use. Impression: Allograft Function good, eGFR: 36. Immunosuppression Levels: Adequate. Blood Pressure Control: Adequate Blood Count: anemia. Return to Clinic: In 6 months Lab Frequency: Every three months Review of Systems Constitutional: no fever and no chills. Eyes: no blurred vision. ENT: no earache, no sore throat and no nasal discharge. Cardiovascular: no chest pain. Respiratory: no shortness of breath and no chronic cough. Gastrointestinal: no abdominal pain, no constipation, no vomiting, no diarrhea and no nausea. Genitourinary: no dysuria. Musculoskeletal: no myalgias. Skin: no rashes. Neurological: no headaches and no dizziness. Psychiatric: no confusion. Endocrine: no diabetes mellitus. All other systems have been reviewed and are negative for complaint. Active Problems Anemia in chronic kidney disease (285.21) (N18.9,D63.1) Immunosuppression (279.9) (D84.9) Kidney replaced by transplant (V42.0) (Z94.0) Added by Problem List Migration; 2013-05-08; Moved to [facility] Sep 06 2013 4:40PM Mild vitamin D deficiency (268.9) (E55.9) Proteinuria (791.0) (R80.9) Screening for blood or protein in urine (V82.9) (Z13.89) Surgical History History of Hernia repair Family History No pertinent family histor (more content not included)... Normal Touchworks Basophil percentageon 2022 Basophil percentage 3.7 mg/dL 2.5-4.9 [facility] Chloride [Moles/Vol] 104 mmol/L 98-107 [facility] Glucose [Mass/Vol] 97 mg/dL 74-106 [facility] Potassium [Moles/Vol] 4.5 mmol/L 3.5-5.1 [facility] Sodium [Moles/Vol] 137 mmol/L 136-145 [facility] WBC (Bld) [#/Vol] 6.0 10*3/uL 4.4-11.0 [facility] Blood erythrocytes count (nu mber/volume)on 11-14-2022 RBC (Bld) [#/Vol] 4.00 10*6/uL 4.2-5.4 [facility] Blood hemoglobin measurement (mass/volume)on 11-14-2022 Hemoglobin (Bld) [Mass/Vol] 11.7 g/dL 12.0-15.0 [facility] Blood platelet mean volumeon 11-14-2022 Platelet mean volume (Bld) [Entitic vol] 10.9 fL 6.2-12.0 [facility] Determination of erythrocyte mean corpuscular volume (MCV)on 11-14-2022 MCV (RBC) [Entitic vol] 89.8 fL 81-99 [facility] Hematocrit Auto (Bld) [Volum e fraction]on 11-14-2022 Hematocrit (Bld) [Volume fraction] 35.9 % 37-47 [facility] Laboratory - Chemistry and C hemistry - challengeon 11-14-2022 CO2 [Moles/Vol] 27.0 mmol/L 21.0-32.0 [facility] Magnesium [Mass/Vol] 1.8 mg/dL 1.6-2.6 [facility] Urea nitrogen/Creatinine [Mass ratio] 19.0 mg/mg 10-20 [facility] Laboratory - Hematology and Cell countson 11-14-2022 Erythrocyte distribution width (RBC) [Entitic vol] 48.1 fL 35.1-43.9 [facility] Erythrocyte distribution width (RBC) [Ratio] 14.6 % 11.6-14.6 [facility] MCH (RBC) [Entitic mass] 29.3 pg 27.0-32.0 [facility] MCHC Auto (RBC) [Mass/Vol]on 11-14-2022 MCHC (RBC) [Mass/Vol] 32.6 g/dL 32-36 [facility] No Panel Informationon 11-14 Estimated GFR (MDRD) Amer 52 mL/min >60 [facility] Comment on above: GFR Calc Estimated GFR (MDRD) Non-Af Amer 43 mL/min >60 [facility] Comment on above: Non- GFR Calc Parathyroid Hormone (Intact) 186.3 pg/mL 18.4-80.1 [facility] Tacrolimus (Prograf) Level 5.2 ng/mL 2.0-20.0 [facility] Comment on above: Trough (immediately following transplant) 15.0 Trough (steady state, 2 weeks or more after transplant): 3.0 - 8.0 Performed by LC-MS/MS technology.Performed at: [employer] [place] [id number] Director: Su Iraheta MD, Phone: [phone] Vitamin D 25-Hydroxy 45.7 ng/mL [facility] Comment on above: Vitamin D 25(OH) Sta tus Range Deficiency <20 ng/mL (50nmol/L) Insufficiency 20 - 30 ng/mL (50 - 75 nmol/L) Sufficiency 30 - 100 ng/mL (75 - 250 nmol/L) Toxicity >100 ng/mL (>250 nmol/L) Platelets bldon 11-14-2022 Platelets (Bld) [#/Vol] 301 10*3/uL 150-450 [facility] Serum or plasma albumin castro urement (mass/volume)on 11-14-2022 Albumin [Mass/Vol] 3.1 g/dL 3.2-5.0 [facility] Serum or plasma calcium castro urement (mass/volume)on 11-14-2022 Calcium [Mass/Vol] 8.2 mg/dL 8.5-10.1 [facility] Serum or plasma creatinine m easurement (mass/volume)on 11-14-2022 Creatinine [Mass/Vol] 1.26 mg/dL 0.55-1.02 [facility] Comment on above: The validity of the calculated GFR & GFRAA in patients over 70 years has not been determined. Clinical correlation is essential. Serum or plasma urea nitroge n measurement (mass/volume)on 11-14-2022 Urea nitrogen [Mass/Vol] 24 mg/dL 7-18 [facility] Urine creatinine measurement (mass/volume)on 11-14-2022 Creatinine (U) [Mass/Vol] 258.00 mg/dL NO RANGE EST. [facility] Urine protein measurement (m ass/volume)on 11-14-2022 Protein (U) [Mass/Vol] 302.0 mg/dL 0.0-11.8 [facility] Urine protein/creatinine mas s ratioon 11-14-2022 Protein/Creatinine (U) [Mass ratio] 1171 mg/g CRE 0-200 [facility] No Panel InformationOrdered By: Dr. See on 09-21-2022 Miscellaneous Test See comment [facility] Comment on above: TEST RESULT LIMITSSA RS-CoV-2 Semi-Quant Total Ab A, See Dilution U/mL Negative<0.8SARS-CoV-2 [place], [address] U/mL Negative<0.8SARS-CoV-2 Arnel Ab Interp A, Positive Antibodies against the SARS-CoV-2 spike protein receptor binding domain (RBD) were detected. It is yet undetermined what level of antibody to SARS-CoV-2 spike protein correlates to immunity against developing symptomatic SARS-CoV-2 disease. Studies are underway to measure the quantitative levels of specific SARS-CoV-2 antibodiesfollowing vaccination. Such studies will provide valuable insights into the correlation between protection from vaccination and antibody levels.[employer] [id number] S TESTING PERFORMED AT [facility]. ORIGINAL REPORT ON FILE IN LAB CONTAINS ADDITIONAL TEST SITE INFORMATION. Absolute lymphocyte counton 09-13-2022 Lymphocytes Auto (Unsp spec) [#/Vol] 1.02 10*3/uL 0.83-4.51 [facility] Basophil percentageon 2021 Basophil percentage 2.4 mg/dL 2.5-4.9 [facility] Basophils/100 WBC (Bld) 0.6 % 0-1 [facility] Chloride [Moles/Vol] 107 mmol/L 98-107 [facility] Eosinophils/100 WBC (Bld) 2.7 % 0-5 [facility] Glucose [Mass/Vol] 97 mg/dL 74-106 [facility] Neutrophils (Bld) [#/Vol] 4.4 10*3/uL 2.0-7.7 [facility] Neutrophils/100 WBC (Bld) 70.0 % 47-70 [facility] Potassium [Moles/Vol] 4.8 mmol/L 3.5-5.1 [facility] Sodium [Moles/Vol] 136 mmol/L 136-145 [facility] WBC (Bld) [#/Vol] 6.3 10*3/uL 4.4-11.0 [facility] Blood erythrocytes count (nu mber/volume)on 09-13-2022 RBC (Bld) [#/Vol] 4.29 10*6/uL 4.2-5.4 [facility] Blood hemoglobin measurement (mass/volume)on 09-13-2022 Hemoglobin (Bld) [Mass/Vol] 12.5 g/dL 12.0-15.0 [facility] Blood lymphocytes/100 leukoc yteson 09-13-2022 Lymphocytes/100 WBC (Bld) 16.2 % 19-41 [facility] Blood monocytes/100 leukocyt eson 09-13-2022 Monocytes/100 WBC (Bld) 10.0 % 0-10 [facility] Blood platelet mean volumeon 09-13-2022 Platelet mean volume (Bld) [Entitic vol] 10.9 fL 6.2-12.0 [facility] Determination of erythrocyte mean corpuscular volume (MCV)on 09-13-2022 MCV (RBC) [Entitic vol] 92.1 fL 81-99 [facility] Hematocrit Auto (Bld) [Volum e fraction]on 09-13-2022 Hematocrit (Bld) [Volume fraction] 39.5 % 37-47 [facility] Laboratory - Chemistry and C hemistry - challengeon 09-13-2022 CO2 [Moles/Vol] 23.0 mmol/L 21.0-32.0 [facility] Urea nitrogen/Creatinine [Mass ratio] 18.6 mg/mg 10-20 [facility] Laboratory - Hematology and Cell countson 09-13-2022 Erythrocyte distribution width (RBC) [Entitic vol] 50.6 fL 35.1-43.9 [facility] Erythrocyte distribution width (RBC) [Ratio] 15.1 % 11.6-14.6 [facility] Immature granulocytes/100 WBC (Bld) 0.500 % 0.0-0.9 [facility] Comment on above: IG% - Immature Granu locytes (promyelocytes, myelocytes and metamyelocytes) > 1% indicates that a LEFT SHIFT is Present. MCH (RBC) [Entitic mass] 29.1 pg 27.0-32.0 [facility] Nucleated RBC/100 WBC (Bld) [Ratio] 0 % 0-5 [facility] MCHC Auto (RBC) [Mass/Vol]on 09-13-2022 MCHC (RBC) [Mass/Vol] 31.6 g/dL 32-36 [facility] No Panel Informationon 09-13 Estimated GFR (MDRD) Amer 59 mL/min >60 [facility] Comment on above: GFR Calc Estimated GFR (MDRD) Non-Af Amer 49 mL/min >60 [facility] Comment on above: Non- GFR Calc Parathyroid Hormone (Intact) 434.0 pg/mL 18.4-80.1 [facility] Tacrolimus (Prograf) Level 7.5 ng/mL 2.0-20.0 [facility] Comment on above: Trough (immediately following transplant) 15.0 Trough (steady state, 2 weeks or more after transplant): 3.0 - 8.0 Performed by LC-MS/MS technology.Performed at: [employer] [id number] Director: Su Iraheta MD, Phone: [phone] Vitamin D 25-Hydroxy 37.9 ng/mL [facility] Comment on above: Vitamin D 25(OH) Sta tus Range Deficiency <20 ng/mL (50nmol/L) Insufficiency 20 - 30 ng/mL (50 - 75 nmol/L) Sufficiency 30 - 100 ng/mL (75 - 250 nmol/L) Toxicity >100 ng/mL (>250 nmol/L) Platelets bldon 09-13-2022 Platelets (Bld) [#/Vol] 227 10*3/uL 150-450 [facility] Serum or plasma albumin castro urement (mass/volume)on 09-13-2022 Albumin [Mass/Vol] 3.3 g/dL 3.2-5.0 [facility] Serum or plasma calcium castro urement (mass/volume)on 09-13-2022 Calcium [Mass/Vol] 8.4 mg/dL 8.5-10.1 [facility] Serum or plasma creatinine m easurement (mass/volume)on 09-13-2022 Creatinine [Mass/Vol] 1.13 mg/dL 0.55-1.02 [facility] Comment on above: The validity of the calculated GFR & GFRAA in patients over 70 years has not been determined. Clinical correlation is essential. Serum or plasma urea nitroge n measurement (mass/volume)on 09-13-2022 Urea nitrogen [Mass/Vol] 21 mg/dL 7-18 [facility] Urine creatinine measurement (mass/volume)on 09-13-2022 Creatinine (U) [Mass/Vol] 126.00 mg/dL NO RANGE EST. [facility] Urine protein measurement (m ass/volume)on 09-13-2022 Protein (U) [Mass/Vol] 249.9 mg/dL 0.0-11.8 [facility] Urine protein/creatinine mas s ratioon 09-13-2022 Protein/Creatinine (U) [Mass ratio] 1983 mg/g CRE 0-200 [facility] Established Visit (Nephrolog y)on 09-05-2022 Established Visit (Nephrology) Diagnoses/Problems Kidney replaced by transplant (V42.0) (Z94.0) Added by Problem List Migration; 2013-05-08; Moved to [facility] Sep 06 2013 4:40PM Mild vitamin D deficiency (268.9) (E55.9) Orders Kidney replaced by transplant Start: Cinacalcet HCl - 30 MG Oral Tablet; Take 1 tablet daily Complete Blood Count; Status:Active; Requested for:Recurring Schedule: 11/19/2022; 02/11/2023; 05/20/2023; 08/19/2023 ; Creatinine, Urine Spot; Status:Active; Requested for:Recurring Schedule: 11/19/2022; 02/11/2023; 05/20/2023; 08/19/2023 ; Magnesium, Serum; Status:Active; Requested for:Recurring Schedule: 11/19/2022; 02/11/2023; 05/20/2023; 08/19/2023 ; Parathormone Intact, Serum; Status:Active; Requested for:Recurring Schedule: 11/19/2022; 02/11/2023; 05/20/2023; 08/19/2023 ; Renal Function Panel; Status:Active; Requested for:Recurring Schedule: 11/19/2022; 02/11/2023; 05/20/2023; 08/19/2023 ; Tacrolimus; Status:Active; Requested for:Recurring Schedule: 11/19/2022; 02/11/2023; 05/20/2023; 08/19/2023 ; Total Protein, Urine Spot; Status:Active; Requested for:Recurring Schedule: 11/19/2022; 02/11/2023; 05/20/2023; 08/19/2023 ; Kidney replaced by transplant, Proteinuria Renew: Lisinopril 5 MG Oral Tablet; TAKE 1 TABLET DAILY Mild vitamin D deficiency Vitamin D 25-Hydroxy; Status:Active; Requested for:Recurring Schedule: 11/19/2022; 02/11/2023; 05/20/2023; 08/19/2023 ; Provider Impressions This is a 81 year old White female with past medical history significant for hypertension, dyslipidemia and End Stage Renal Disease secondary to unknown etiology. Patient underwent the 1st donor renal transplant on 01/12/2009. The first kidney allograft got thrombosed and was removed right after surgery. 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 1. ESRD S/P kidney transplant - Renal allograft function is stable. - Creatinine last check was 1.3 -Ensure adequate hydration - Avoid nephrotoxic medications, NSAIDs, and IV contrast. -UPC ratio increased from 1.4 to 2.2 on lisinopril 2.5 mg daily. BP had been > 130/80 [facility]. Patient agreed to try increasing the dose. 2. Immunosuppression -Tacrolimus level last check was 4.9 -Continue current immunosuppression regimen. No changes. 3. Electrolytes -Acceptable from last lab drawn 4. Hypertension -Home BP had been acceptable -Encourage to monitor home BP -Continue current anti hypertensive medication 5. Bone Mineral Disease/Osteoporosis - Consider DEXA every 2-3 years , defer to PCP 6.Anemia -asymptomatic - Keep Hb > 7 -Monitor Hemoglobin for now - No indications for blood transfusion 7..Health maintenance and vaccination - Flu shot during flu season annually - Cancer screening is up to date per the patient Summary s/p 2ND DDRT 11.5 Years Doing well. Received Evusheld at PCP office. We discussed that EVUSHELD can NOT replace the COVID vaccine. She was under the impression that Evusheld can be used instead of the COVID vaccine. She had Flu shot and Shingle shot. Noted increase UPC ratio. Will increase Lisinopril to 5 mg daily. Rx sent. Monitor BP, Cr and K. She will tack BP. 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 She will keep BP log. In person visit annually. Refilled medications per patient?s request. Renewed standing orders for lab and provided a copy of order requisition to patient today. Chief Complaint Post transplant follow up Adult Risk ScreeningThere are no spiritual/cultural practices/values/needs that are important to know Initial Fall Risk Screening: MU has not fallen in the last 6 months. Living Will. Living Will: Living will on file. Healthcare POA: Health care proxy on file. Declaration of Mental Health Treatment: No mental health treatment on file. Tobacco Screening: MU does not use tobacco. Domestic Violence Screen: Does not feel threatened or abused physically, emotionally or sexually. Do you feel UNSAFE? The patient feels safe in the home. Depression/Suicide Screening: During the past 2 weeks, the patient has not felt down, depressed or hopeless. During the past 2 weeks, the patient has not felt little interest or pleasure in doing things. She does not have a risk of suicide. She has not had thoughts of harming others. Single alcohol screening question: In the past year the patient has had 5 or more drinks (men) or 4 or more drinks (women)? 0 time(s). Single substance abuse screening question: In the past year the patient has used a recreational drug or used a prescription drug for non-medical reasons? 0 time(s). Nutrition Screening: In the past month, there was not a day when I or anyone in my family went hungry because there was not enough food. Patient Education: The patient denies that they or the person with them has problem (more content not included)... Normal [facility] No Panel InformationOrdered By: Dr. See on 08-24-2022 Miscellaneous Test See comment [facility] [place] [facility] Comment on above: TEST RESULT LIMITSSA RS-CoV-2 Semi-Quant Total [id number] Semi-Quant Total Ab A, See Dilution U/mL Negative <0.8SARS-CoV-2 Arnel Ab Dilution A, 949 U/mL Negative <0.8SARS-CoV-2 Arnel Ab Interp A, PositiveAntibodies against the SARS-CoV-2 spike protein receptor binding domain (RBD) were detected. It is yet undetermined what level of antibody to SARS-CoV-2 spike protein correlates to immunity against developing symptomatic SARS-CoV-2 disease. Studies are underway to measure the quantitative levels of specific SARS-CoV-2 antibodiesfollowing vaccination. Such studies will provide valuable insights into the correlation between protection from vaccination and antibody levels.[employer] [id number] S TESTING PERFORMED AT [employer]. ORIGINAL REPORT ON FILE IN LAB CONTAINS ADDITIONAL TEST SITE INFORMATION. Parathyroid Hormone (Intact) 449.3 pg/mL 18.4-80.1 [facility] Vitamin D 25-Hydroxy 42.8 ng/mL [facility] Comment on above: Vitamin D 25(OH) Sta tus Range Deficiency <20 ng/mL (50nmol/L) Insufficiency 20 - 30 ng/mL (50 - 75 nmol/L) Sufficiency 30 - 100 ng/mL (75 - 250 nmol/L) Toxicity >100 ng/mL (>250 nmol/L) Basophil percentageon 2021 Basophil percentage 3.2 mg/dL 2.5-4.9 [facility] Work Phone: Chloride [Moles/Vol] 112 mmol/L 98-107 [facility] Work Phone: Glucose [Mass/Vol] 93 mg/dL 74-106 [facility] Work Phone: Potassium [Moles/Vol] 4.6 mmol/L 3.5-5.1 [facility] Work Phone: Sodium [Moles/Vol] 142 mmol/L 136-145 [facility] Work Phone: WBC (Bld) [#/Vol] 5.0 10*3/uL 4.4-11.0 [facility] Work Phone: Blood erythrocytes count (nu mber/volume)on 06-14-2022 RBC (Bld) [#/Vol] 4.18 10*6/uL 4.2-5.4 [facility] Work Phone: Blood hemoglobin measurement (mass/volume)on 06-14-2022 Hemoglobin (Bld) [Mass/Vol] 12.4 g/dL 12.0-15.0 [facility] Work Phone: Blood platelet mean volumeon 06-14-2022 Platelet mean volume (Bld) [Entitic vol] 10.5 fL 6.2-12.0 [facility] Work Phone: Determination of erythrocyte mean corpuscular volume (MCV)on 06-14-2022 MCV (RBC) [Entitic vol] 93.1 fL 81-99 [facility] Work Phone: Hematocrit Auto (Bld) [Volum e fraction]on 06-14-2022 Hematocrit (Bld) [Volume fraction] 38.9 % 37-47 [facility] Work Phone: Laboratory - Chemistry and C hemistry - challengeon 06-14-2022 CO2 [Moles/Vol] 25.0 mmol/L 21.0-32.0 [facility] Work Phone: Urea nitrogen/Creatinine [Mass ratio] 18.3 mg/mg 10-20 [facility] Work Phone: Laboratory - Hematology and Cell countson 06-14-2022 Erythrocyte distribution width (RBC) [Entitic vol] 52.5 fL 35.1-43.9 [facility] Work Phone: Erythrocyte distribution width (RBC) [Ratio] 15.5 % 11.6-14.6 [facility] Work Phone: MCH (RBC) [Entitic mass] 29.7 pg 27.0-32.0 [facility] Work Phone: MCHC Auto (RBC) [Mass/Vol]on 06-14-2022 MCHC (RBC) [Mass/Vol] 31.9 g/dL 32-36 [facility] Work Phone: No Panel Informationon 06-14 Estimated GFR (MDRD) Amer 50 mL/min >60 [facility] Work Phone: Comment on above: GFR Calc Estimated GFR (MDRD) Non-Af Amer 41 mL/min >60 [facility] Work Phone: Comment on above: Non- GFR Calc Tacrolimus (Prograf) Level 4.9 ng/mL 2.0-20.0 [facility] Work Phone: Comment on above: Trough (immediately following transplant) 15.0 Trough (steady state, 2 weeks or more after transplant): 3.0 - 8.0 Performed by LC-MS/MS technology.Performed at: [employer] [id number] Director: Su Iraheta MD, Phone: [phone] Platelets bldon 06-14-2022 Platelets (Bld) [#/Vol] 281 10*3/uL 150-450 [facility] Work Phone: Serum or plasma albumin castro urement (mass/volume)on 06-14-2022 Albumin [Mass/Vol] 3.5 g/dL 3.2-5.0 [facility] Work Phone: Serum or plasma calcium castro urement (mass/volume)on 06-14-2022 Calcium [Mass/Vol] 9.0 mg/dL 8.5-10.1 [facility] Work Phone: Serum or plasma creatinine m easurement (mass/volume)on 06-14-2022 Creatinine [Mass/Vol] 1.31 mg/dL 0.55-1.02 [facility] Work Phone: Comment on above: The validity of the calculated GFR & GFRAA in patients over 70 years has not been determined. Clinical correlation is essential. Serum or plasma urea nitroge n measurement (mass/volume)on 06-14-2022 Urea nitrogen [Mass/Vol] 24 mg/dL 7-18 [facility] Work Phone: Urine creatinine measurement (mass/volume)on 06-14-2022 Creatinine (U) [Mass/Vol] 92.00 mg/dL NO RANGE EST. [facility] Work Phone: Urine protein measurement (m ass/volume)on 06-14-2022 Protein (U) [Mass/Vol] 205.9 mg/dL 0.0-11.8 [facility] Work Phone: Urine protein/creatinine mas s ratioon 06-14-2022 Protein/Creatinine (U) [Mass ratio] 2238 mg/g CRE 0-200 [facility] Work Phone: Basophil percentageon 2021 Basophil percentage 3.1 mg/dL 2.5-4.9 [facility] Work Phone: [phone] Chloride [Moles/Vol] 109 mmol/L 98-107 [facility] Work Phone: Glucose [Mass/Vol] 93 mg/dL 74-106 [facility] Work Phone: Potassium [Moles/Vol] 4.9 mmol/L 3.5-5.1 [facility] Work Phone: Sodium [Moles/Vol] 140 mmol/L 136-145 [facility] Work Phone: WBC (Bld) [#/Vol] 4.7 10*3/uL 4.4-11.0 [facility] Work Phone: Blood erythrocytes count (nu mber/volume)on 03-14-2022 RBC (Bld) [#/Vol] 4.04 10*6/uL 4.2-5.4 [facility] Work Phone: Blood hemoglobin measurement (mass/volume)on 03-14-2022 Hemoglobin (Bld) [Mass/Vol] 11.9 g/dL 12.0-15.0 [facility] Work Phone: Blood platelet mean volumeon 03-14-2022 Platelet mean volume (Bld) [Entitic vol] 10.9 fL 6.2-12.0 [facility] Work Phone: Determination of erythrocyte mean corpuscular volume (MCV)on 03-14-2022 MCV (RBC) [Entitic vol] 91.3 fL 81-99 [facility] Work Phone: Hematocrit Auto (Bld) [Volum e fraction]on 03-14-2022 Hematocrit (Bld) [Volume fraction] 36.9 % 37-47 [facility] Work Phone: Laboratory - Chemistry and C hemistry - challengeon 03-14-2022 CO2 [Moles/Vol] 23.0 mmol/L 21.0-32.0 [facility] Work Phone: Urea nitrogen/Creatinine [Mass ratio] 19.1 mg/mg 10-20 [facility] Work Phone: Laboratory - Hematology and Cell countson 03-14-2022 Erythrocyte distribution width (RBC) [Entitic vol] 52.5 fL 35.1-43.9 [facility] Work Phone: Erythrocyte distribution width (RBC) [Ratio] 15.6 % 11.6-14.6 [facility] Work Phone: MCH (RBC) [Entitic mass] 29.5 pg 27.0-32.0 [facility] Work Phone: MCHC Auto (RBC) [Mass/Vol]on 03-14-2022 MCHC (RBC) [Mass/Vol] 32.2 g/dL 32-36 [facility] Work Phone: No Panel Informationon 03-14 Estimated GFR (MDRD) Amer 48 mL/min >60 [facility] Work Phone: Comment on above: GFR Calc Estimated GFR (MDRD) Non-Af Amer 40 mL/min >60 [facility] Work Phone: Comment on above: Non- GFR Calc Tacrolimus (Prograf) Level 7.4 ng/mL 2.0-20.0 [facility] Work Phone: Comment on above: Trough (immediately following transplant) 15.0 Trough (steady state, 2 weeks or more after transplant): 3.0 - 8.0 Performed by LC-MS/MS technology.Performed at: [address] [id number] Director: Su Iraheta MD, Phone: [phone] Platelets bldon 03-14-2022 Platelets (Bld) [#/Vol] 218 10*3/uL 150-450 [facility] Work Phone: Serum or plasma albumin castro urement (mass/volume)on 03-14-2022 Albumin [Mass/Vol] 3.4 g/dL 3.2-5.0 [facility] Work Phone: Serum or plasma calcium castro urement (mass/volume)on 03-14-2022 Calcium [Mass/Vol] 8.6 mg/dL 8.5-10.1 [facility] Work Phone: Serum or plasma creatinine m easurement (mass/volume)on 03-14-2022 Creatinine [Mass/Vol] 1.36 mg/dL 0.55-1.02 [facility] Work Phone: Comment on above: The validity of the calculated GFR & GFRAA in patients over 70 years has not been determined. Clinical correlation is essential. Serum or plasma urea nitroge n measurement (mass/volume)on 03-14-2022 Urea nitrogen [Mass/Vol] 26 mg/dL 7-18 [facility] Work Phone: Urine creatinine measurement (mass/volume)on 03-14-2022 Creatinine (U) [Mass/Vol] 234.00 mg/dL NO RANGE EST. [facility] Work Phone: Urine protein measurement (m ass/volume)on 03-14-2022 Protein (U) [Mass/Vol] 344.2 mg/dL 0.0-11.8 [facility] Work Phone: Basophil percentageon 2021 Cholesterol [Mass/Vol] 191 mg/dL <200 [facility] Work Phone: Comment on above: <200 mg/dL Desirable 200-240 mg/dL Borderline >240 mg/dL High Risk Triglyceride [Mass/Vol] 110 mg/dL <199 [facility] Work Phone: Comment on above: The drugs N-Acetylcy steine and Metamizole may falsely depress this assay.Serum Triglycerides Reference Interval Normal <150 mg/dL Borderline high 150 - 199 mg/dL High 200 - 499 mg/dL Very High > or = 500 mg/dL No Panel Informationon 02-12 Miscellaneous Test See comment [facility] Work [facility]: Comment on above: TEST RESULT LIMITSSA RS-CoV-2 Antibody, [id number] Semi- Quant IgG Ab, <13.0 AU/mL Neg <13.0SARS-CoV-2 Arnel Ab Interp, NegativeThis sample does not contain detectable antibodies against the SARS-CoV-2 spike protein, including the receptor binding domain (RBD).This assay was performed using [employer](R) SARS-CoV-2 Trimeric S IgG assay.CommentsA: This test has not been FDA cleared or approved. This test has been authorized by FDA under an Emergency Use Authorization (EUA). This test is onlyauthorized for the duration of the declaration that circumstances exist justifying the authorization of emergency use of in vitro diagnostics for detectionand/or diagnosis of COVID-19 under Section 564(b)(1) of the Act, 21 U.S.C. 360bbb-3(b)(1), unless the authorization is terminated or revoked sooner. Thistest has been authorized only for detecting the presence of antibodies against SARS-CoV-2, not for any other viruses or pathogens. ____ TESTING PERFORMED AT [facility]. ORIGINAL REPORT ON FILE IN LAB CONTAINS ADDITIONAL TEST SITE INFORMATION. Thyroid Stimulating Hormone (TSH) 0.39 uIU/mL 0.358-3.74 [facility] Work Phone: Serum or plasma cholesterol in HDL measurement (mass/volume)on 02-12-2022 Cholesterol in HDL [Mass/Vol] 83 mg/dL >40 [facility] Work Phone: Comment on above: The drugs N-Acetylcy steine and Metamizole may falsely depress this assay. Reference Range HDL <40 mg/dL Low HDL Cholesterol HDL >or= 60 mg/dL High HDL Cholesterol Serum or plasma cholesterol in VLDL measurement (mass/volume)on 02-12-2022 Cholesterol in VLDL [Mass/Vol] 22 mg/dL 5-40 [facility] Work Phone: Serum or plasma low density lipoprotein (LDL) cholesterol measurement (mass/volume)on 02-12-2022 Cholesterol in LDL [Mass/Vol] 86 mg/dL 0-130 [facility] Work Phone: Serum or plasma uric acid me asurement (mass/volume)on 02-12-2022 Urate [Mass/Vol] 6.4 mg/dL 2.6-6.0 [facility] Work Phone: Comment on above: The drugs N-Acetylcy steine and Metamizole may falsely depress this assay. Absolute lymphocyte counton 01-08-2022 Lymphocytes Auto (Unsp spec) [#/Vol] 0.87 10*3/uL 0.83-4.51 [facility] Work Phone: Basophil percentageon 2021 Basophils/100 WBC (Bld) 0.2 % 0-1 [facility] Work Phone: Bilirubin [Mass/Vol] 0.30 mg/dL 0.20-1.00 [facility] Work Phone: Comment on above: For patients on eltr ombopag therapy, use of [employer] [place] TBIL is not recommended. Chloride [Moles/Vol] 103 mmol/L 98-107 [facility] Work Phone: Eosinophils/100 WBC (Bld) 1.7 % 0-5 [facility] Work Phone: Glucose [Mass/Vol] 90 mg/dL 74-106 [facility] Work Phone: Neutrophils (Bld) [#/Vol] 6.3 10*3/uL 2.0-7.7 [facility] Work Phone: Neutrophils/100 WBC (Bld) 76.5 % 47-70 [facility] Work Phone: Potassium [Moles/Vol] 4.5 mmol/L 3.5-5.1 [facility] Work Phone: Protein [Mass/Vol] 6.4 g/dL 6.4-8.2 [facility] Work Phone: Sodium [Moles/Vol] 135 mmol/L 136-145 [facility] Work Phone: WBC (Bld) [#/Vol] 8.2 10*3/uL 4.4-11.0 [facility] Work Phone: Blood erythrocytes count (nu mber/volume)on 01-08-2022 RBC (Bld) [#/Vol] 4.00 10*6/uL 4.2-5.4 [facility] Work Phone: Blood hemoglobin measurement (mass/volume)on 01-08-2022 Hemoglobin (Bld) [Mass/Vol] 11.6 g/dL 12.0-15.0 [facility] Work Phone: Blood lymphocytes/100 leukoc yteson 01-08-2022 Lymphocytes/100 WBC (Bld) 10.6 % 19-41 [facility] Work Phone: Blood monocytes/100 leukocyt eson 01-08-2022 Monocytes/100 WBC (Bld) 10.5 % 0-10 [facility] Work Phone: Blood platelet mean volumeon 01-08-2022 Platelet mean volume (Bld) [Entitic vol] 10.9 fL 6.2-12.0 [facility] Work Phone: Determination of erythrocyte mean corpuscular volume (MCV)on 01-08-2022 MCV (RBC) [Entitic vol] 90.5 fL 81-99 [facility] Work Phone: Hematocrit Auto (Bld) [Volum e fraction]on 01-08-2022 Hematocrit (Bld) [Volume fraction] 36.2 % 37-47 [facility] Work Phone: Laboratory - Chemistry and C hemistry - challengeon 01-08-2022 ALP [Catalytic activity/Vol] 73 U/L 45-117 [facility] Work Phone: ALT [Catalytic activity/Vol] 15 U/L 13-56 [facility] Work Phone: CO2 [Moles/Vol] 24.0 mmol/L 21.0-32.0 [facility] Work Phone: Globulin (S) [Mass/Vol] 3.0 g/dL 2.2-4.2 [facility] Work Phone: Urea nitrogen/Creatinine [Mass ratio] 19.3 mg/mg 10-20 [facility] Work Phone: Laboratory - Hematology and Cell countson 01-08-2022 Erythrocyte distribution width (RBC) [Entitic vol] 48.6 fL 35.1-43.9 [facility] Work Phone: Erythrocyte distribution width (RBC) [Ratio] 14.7 % 11.6-14.6 [facility] Work Phone: Immature granulocytes/100 WBC (Bld) 0.500 % 0.0-0.9 [facility] Work Phone: Comment on above: IG% - Immature Granu locytes (promyelocytes, myelocytes and metamyelocytes) > 1% indicates that a LEFT SHIFT is Present. MCH (RBC) [Entitic mass] 29.0 pg 27.0-32.0 [facility] Work Phone: Nucleated RBC/100 WBC (Bld) [Ratio] 0 % 0-5 [facility] Work Phone: MCHC Auto (RBC) [Mass/Vol]on 01-08-2022 MCHC (RBC) [Mass/Vol] 32.0 g/dL 32-36 [facility] Work Phone: No Panel Informationon 01-08 Estimated GFR (MDRD) Amer 46 mL/min >60 [facility] Work Phone: Comment on above: GFR Calc Estimated GFR (MDRD) Non-Af Amer 38 mL/min >60 [facility] Work Phone: Comment on above: Non- GFR Calc Platelets bldon 01-08-2022 Platelets (Bld) [#/Vol] 231 10*3/uL 150-450 [facility] Work Phone: Serum or plasma albumin castro urement (mass/volume)on 01-08-2022 Albumin [Mass/Vol] 3.4 g/dL 3.2-5.0 [facility] Work Phone: Serum or plasma albumin/glob ulin mass ratioon 01-08-2022 Albumin/Globulin [Mass ratio] 1.1 {ratio} 0.9-2.4 [facility] Work Phone: Serum or plasma calcium castro urement (mass/volume)on 01-08-2022 Calcium [Mass/Vol] 8.7 mg/dL 8.5-10.1 [facility] Work Phone: Serum or plasma creatinine m easurement (mass/volume)on 01-08-2022 Creatinine [Mass/Vol] 1.40 mg/dL 0.55-1.02 [facility] Work Phone: Comment on above: The validity of the calculated GFR & GFRAA in patients over 70 years has not been determined. Clinical correlation is essential. Serum or plasma urea nitroge n measurement (mass/volume)on 01-08-2022 Urea nitrogen [Mass/Vol] 27 mg/dL 7-18 [facility] Work Phone: Serum or plasma uric acid me asurement (mass/volume)on 01-08-2022 Urate [Mass/Vol] 6.2 mg/dL 2.6-6.0 [facility] Work Phone: Comment on above: The drugs N-Acetylcy steine and Metamizole may falsely depress this assay. Thin prep Papanicolaou smear with manual screeningon 01-08-2022 Thin prep Papanicolaou smear with manual screening 12 U/L 15-37 [facility] Work Phone: Thin prep Papanicolaou smear with manual screening 8 5-15 [facility] Work Phone: ANES POSTPROC EVALon 022 ANES POSTPROC EVAL HNO ID: [id number] Author: Osman Hagan MD Service: Anesthesiology Author Type: Anesthesiologist Type: Anesthesia Postprocedure Evaluation Filed: 12/15/2021 10:39 AM Note Text: POST ANESTHESIA EVALUATION NOTE : 1940 Procedure Summary Date: 12/15/21 [place] / [place] [id number] [place] [facility] [place]est[place] Start: 902 Anesthesia Stop: 946 Procedure: BLEPHAROPLASTY UPPER MEDICALLY NECESSARY (Bilateral Eye lid) Diagnosis: Dermatochalasis of both upper eyelids (Dermatochalasis of both upper eyelids [H02.831, H02.834]) Surgeons: Felix Visnon MD Responsible Provider: Osman Hagan MD Anesthesia Type: MAC ASA Status: 3 Anesthesia Type: MAC Last Vitals Vitals Value Taken Time BP 120/58 12/15/21 0955 Temp 36.3 ?C (97.3 ?F) 12/15/21 0945 Pulse 61 12/15/21 0955 Resp 16 12/15/21 0955 SpO2 100 % 12/15/21 0955 Post Anesthesia Patient Status Patient Evaluation: PACU. PACU/ICU Patient Condition: stable. Anticipated Disposition: phase 2 then home. Neurological Status: aware and responsive. Pulmonary Status: breathing comfortably on room air Airway Control: returned to baseline unsupported. Cardiovascular Status: stable. Pain Management: clinically adequate - multimodal analgesia pain management approach Postoperative Hydration: acceptable. Intraoperative Events: no significant anesthesia events Recommendation: continue current plan of care. Anesthesia Observations No Documentation SIGNATURE: Osman Hagan MD PATIENT NAME: Mu Lincoln DATE: December 15, 2021 TIME: 10:39 AM CSN: [id number] [facility] ANES PRE-OPon 12-15-2021 ANES PRE-OP HNO ID: [id number] Author: Osman Hagan MD Service: Anesthesiology Author Type: Anesthesiologist Type: Anesthesia Preprocedure Evaluation Filed: 12/15/2021 8:34 AM Note Text: ANESTHESIOLOGY DAY OF SURGERY NOTE : 1940 Procedure Information Date/Time: 12/15/21929 Procedure: BLEPHAROPLASTY UPPER MEDICALLY NECESSARY (Bilateral Eye lid) Location: [facility] / [facility] [place] Surgeons: Felix Vinson MD Estimated body mass index is 19.65 kg/m? as calculated from the following: Height as of this encounter: 154.9 cm (5' 1). Weight as of this encounter: 47.2 kg (104 lb). Most recent hematocrit and potassium results: Hematocrit 29.1 10/24/2018 Potassium 4.9 10/24/2018 Relevant Problems CARDIO (+) Internal hemorrhoids without mention of complication GI (+) Esophageal reflux (+) GERD (gastroesophageal reflux disease) (+) Gastroesophageal reflux disease (+) Hernia, hiatal (+) Hiatal hernia -RENAL (+) Chronic kidney disease (CKD) (+) End stage renal disease (HCC) NEURO-PSYCH (+) Personal history of colonic polyps I - PHYSICAL EVALUATION AIRWAY Patient intubated: No. Tracheostomy tube not present Mallampati: II. TM distance: >3 FB. Neck ROM: full ROM without neurological symptoms. Mouth opening: adequate. Short neck: no. Thick neck: no Additional exam findings: no II - ANESTHESIA PLAN ASA Score: 3 Anesthetic Plan: MAC NPO Status: adequate Monitoring plan: standard ASA. Anesthetic plan additional comments: GA backup. Postoperative analgesic plan: parenteral or oral opioids and multimodal analgesia. Patient / Surrogate agrees to blood products: blood products not planned Significant changes in the patient condition since the History and Physical, not otherwise documented in primary service progress note: no. Vitals Value Taken Time BP 138/66 12/15/21824 Pulse 63 12/15/21824 Resp 16 12/15/21824 Temp 36.8 ?C (98.2 ?F) 12/15/21824 SpO2 100 % 12/15/21824 Facility-Administered Medications as of 12/15/2021 Medication Dose Route Frequency - lactated ringers iv infusion 30 mL/hr INTRAVENOUS CONTINUOUS Outpatient Medications as of 12/15/2021 Medication Sig - denosumab (PROLIA) 60 mg/mL Inject 60 mg subcutaneously one time only. Every 6 months - famotidine (PEPCID) 20 mg tablet TAKE 1 TABLET BY MOUTH TWICE A DAY BEFORE MEALS - Lactobac no.41/Bifidobact no.7 (PROBIOTIC-10 ORAL) Take by mouth. - Biotin 10,000 mcg cap Take by mouth once daily. - alprazolam (XANAX ORAL) Take 0.25 mg by mouth daily at bedtime. - lisinopril 2.5 mg tablet Take 2.5 mg by mouth once daily. - Magnesium Hydroxide 400 mg (170 mg) chew Take 250 Each by mouth daily at bedtime. - mycophenolate Mofetil (CELLCEPT) 500 mg tablet Take 500 mg by mouth twice daily. - tacrolimus (PROGRAF) 1 mg capsule 1 mg twice daily. - Cholecalciferol, Vitamin D3, 3,000 unit tab Take 1,000 Units by mouth once daily. - LEVOTHYROXINE 75 MCG TAB Take one(1) tablet daily. - famotidine (PEPCID) 40 mg tablet Take 20 mg by mouth once daily. I have interviewed and examined the patient. I have reviewed the medical record and/or the pre-anesthesia evaluation, pertinent labs, and test results. This contains updated information obtained within 48 hours of Surgery/Procedure. SIGNATURE: Osman Hagan MD PATIENT NAME: Mu Varnerwrer DATE: December 15, 2021 TIME: 8:34 AM CSN: [id number] [facility] OPERATIVE NOon 12-15-2021 OPERATIVE NO HNO ID: [id number] Author: Felix Vinson MD Service: Ophthalmology Author Type: Physician Type: Operative Report Filed: 12/15/2021 9:40 AM Note Text: OPERATIVE/PROCEDURE REPORT OPHTHAMOLOGY LOG ID: [id number] Surgery/Procedure Date: 12/15/2021 Incision/Procedure Start Time: 9:19 AM Incision Close/Procedure End Time: Surgeon(s)/Proceduralist(s) and Pediatric Speech Therapist(s): Surgeon(s) and Role: * Felix Vinson MD - Primary Procedure(s): Procedure(s) (LRB): BLEPHAROPLASTY UPPER MEDICALLY NECESSARY (Bilateral) Preoperative Diagnosis: Dermatochalasis of both upper eyelids [H02.831, H02.834] Postoperative Diagnosis: Same as Preop Operative Indications: The patient has a history of upper eyelid skin blocking their vision resulting in a visually significant scotoma of greater than 25 degrees which improves on eyelid taping. The skin hangs over the lid margins resulting in limited peripheral vision and difficulty with driving, along with fatigue with reading. Based on their symptoms, the surgery was planned. Blurry vision, fatigue with reading Anesthesia: Monitored Anesthesia Care Procedure Details: The patient was brought into the operating room, and placed under adequate local anesthesia following demarcation of the upper eyelids in the sitting position. A skin incision was made with a #15 blade, and the skin muscle flap was dissected from the temporal to nasal direction using unipolar cautery. Bleeding was controlled with bipolar cautery. Middle and medial fat pads were debulked. Several dog-ear adjustments were made along the medial aspect of the upper lid to achieve a good contour to the crease. Once this was done, the incision was closed using a combination of interrupted and running suture of 6-0 Prolene. A similar procedure was carried out on the opposite upper eyelid. Antibiotic ointment and ice compresses were placed over the eyes at the end of the case. The patient was returned to the recovery room in satisfactory condition. Estimated Blood Loss: Minimal unless noted here. Specimens: * No specimens in log * Implantable Devices: * No implants in log * Drains: None unless noted here. Complications: None I performed the entire procedure. SIGNATURE: Felix Vinson MD PATIENT NAME: Mu Lincoln DATE: December 15, 2021 TIME: 9:40 AM PAGER/CONTACT #: Normal [facility] Absolute lymphocyte counton 12-12-2021 Lymphocytes Auto (Unsp spec) [#/Vol] 0.97 10*3/uL 0.83-4.51 [facility] Work Phone: Basophil percentageon 2021 Basophil percentage 3.9 mg/dL 2.5-4.9 [facility] Work Phone: Basophils/100 WBC (Bld) 0.6 % 0-1 [facility] Work Phone: Chloride [Moles/Vol] 107 mmol/L 98-107 [facility] Work Phone: Eosinophils/100 WBC (Bld) 3.2 % 0-5 [facility] Work Phone: Glucose [Mass/Vol] 96 mg/dL 74-106 [facility] Work Phone: Neutrophils (Bld) [#/Vol] 3.5 10*3/uL 2.0-7.7 [facility] Work Phone: Neutrophils/100 WBC (Bld) 65.8 % 47-70 [facility] Work Phone: Potassium [Moles/Vol] 4.5 mmol/L 3.5-5.1 [facility] Work Phone: Sodium [Moles/Vol] 138 mmol/L 136-145 [facility] Work Phone: WBC (Bld) [#/Vol] 5.3 10*3/uL 4.4-11.0 [facility] Work Phone: Blood erythrocytes count (nu mber/volume)on 12-12-2021 RBC (Bld) [#/Vol] 4.06 10*6/uL 4.2-5.4 [facility] Work Phone: Blood hemoglobin measurement (mass/volume)on 12-12-2021 Hemoglobin (Bld) [Mass/Vol] 11.8 g/dL 12.0-15.0 [facility] Work Phone: Blood lymphocytes/100 leukoc yteson 12-12-2021 Lymphocytes/100 WBC (Bld) 18.4 % 19-41 [facility] Work Phone: Blood monocytes/100 leukocyt eson 12-12-2021 Monocytes/100 WBC (Bld) 11.6 % 0-10 [facility] Work Phone: Blood platelet mean volumeon 12-12-2021 Platelet mean volume (Bld) [Entitic vol] 11.1 fL 6.2-12.0 [facility] Work Phone: Determination of erythrocyte mean corpuscular volume (MCV)on 12-12-2021 MCV (RBC) [Entitic vol] 89.9 fL 81-99 [facility] Work Phone: Hematocrit Auto (Bld) [Volum e fraction]on 12-12-2021 Hematocrit (Bld) [Volume fraction] 36.5 % 37-47 [facility] Work Phone: Laboratory - Chemistry and C hemistry - challengeon 12-12-2021 CO2 [Moles/Vol] 26.0 mmol/L 21.0-32.0 [facility] Work Phone: Urea nitrogen/Creatinine [Mass ratio] 17.7 mg/mg 10-20 [facility] Work Phone: Laboratory - Hematology and Cell countson 12-12-2021 Erythrocyte distribution width (RBC) [Entitic vol] 50.4 fL 35.1-43.9 [facility] Work Phone: Erythrocyte distribution width (RBC) [Ratio] 15.3 % 11.6-14.6 [facility] Work Phone: Immature granulocytes/100 WBC (Bld) 0.400 % 0.0-0.9 [facility] Work Phone: Comment on above: IG% - Immature Granu locytes (promyelocytes, myelocytes and metamyelocytes) > 1% indicates that a LEFT SHIFT is Present. MCH (RBC) [Entitic mass] 29.1 pg 27.0-32.0 [facility] Work Phone: Nucleated RBC/100 WBC (Bld) [Ratio] 0 % 0-5 [facility] Work Phone: MCHC Auto (RBC) [Mass/Vol]on 12-12-2021 MCHC (RBC) [Mass/Vol] 32.3 g/dL 32-36 [facility] Work Phone: No Panel Informationon 12-12 Estimated GFR (MDRD) Amer 46 mL/min >60 [facility] Work Phone: Comment on above: GFR Calc Estimated GFR (MDRD) Non-Af Amer 38 mL/min >60 [facility] Work Phone: Comment on above: Non- GFR Calc Tacrolimus (Prograf) Level 6.0 ng/mL [facility] Work Phone: Comment on above: Trough (immediately following transplant) 15.0 Trough (steady state, 2 weeks or more after transplant): 3.0 - 8.0 Performed by LC-MS/MS technology.Performed at: [employer] [address] [id number] Director: Su Iraheta MD, Phone: [phone] Platelets bldon 12-12-2021 Platelets (Bld) [#/Vol] 228 10*3/uL 150-450 [facility] Work Phone: Serum or plasma albumin castro urement (mass/volume)on 12-12-2021 Albumin [Mass/Vol] 3.5 g/dL 3.2-5.0 [facility] Work Phone: Serum or plasma calcium castro urement (mass/volume)on 12-12-2021 Calcium [Mass/Vol] 9.2 mg/dL 8.5-10.1 [facility] Work Phone: Serum or plasma creatinine m easurement (mass/volume)on 12-12-2021 Creatinine [Mass/Vol] 1.41 mg/dL 0.55-1.02 [facility] Work Phone: [phone] Comment on above: The validity of the calculated GFR & GFRAA in patients over 70 years has not been determined. Clinical correlation is essential. Serum or plasma urea nitroge n measurement (mass/volume)on 12-12-2021 Urea nitrogen [Mass/Vol] 25 mg/dL 7-18 [facility] Work Phone: Urine creatinine measurement (mass/volume)on 12-12-2021 Creatinine (U) [Mass/Vol] 154.00 mg/dL NO RANGE EST. [facility] Work Phone: Urine protein measurement (m ass/volume)on 12-12-2021 Protein (U) [Mass/Vol] 198.6 mg/dL 0.0-11.8 [facility] Work Phone: Urine protein/creatinine mas s ratioon 12-12-2021 Protein/Creatinine (U) [Mass ratio] 1290 mg/g CRE 0-200 [facility] Work Phone: Falls Risk Screeningon 08-23 Fall risk assessment a) No falls within the last year [facility] Work Phone: XR COLON ROUTINE DOUBLE CONT [facility] 10-04-2020 XR COLON ROUTINE DOUBLE CONTRAST Final Report DATE OF EXAM: Oct 04 2020 11:15AM ANX [id number] - XR COLON ROUTINE DOUBLE CONTRAST / PROCEDURE REASON: Left lower quadrant abdominal pain Physician Interpretation AIR-CONTRAST COLON: CLINICAL INDICATION: Incomplete colonoscopy. COMPARISON: None. TECHNIQUE: The study is performed by radiology physician veterinary assistant technician Danny Cordoba with interpretation of submitted images. Claims Adjudicator KUB type abdomen radiograph is obtained. Multiple spot images of the colon obtained predominantly without compression are supplemented by multiple overhead radiographs of the colon obtained in varying projections. Contrast: Rectal: 1500 ml Polibar Plus FINDINGS: Claims Adjudicator abdomen radiograph reveals a nonobstructive distribution of bowel gas. There are calcifications scattered throughout the abdomen and pelvis. There is a mild levocurvature of the lumbar spine. There is retrograde opacification of the colon to the cecum with opacification of the appendix. 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 There is reflux of contrast material into the distal small bowel. There are also multiple borderline and mildly dilated air-filled loops of small bowel. There is diffuse colonic diverticulosis. There is extensive diverticulosis of the sigmoid colon. The sigmoid colon. There is muscular hypertrophy distal descending and sigmoid colon. There are no annular constricting or obstructing lesions of the cecum through the proximal descending colon. Evaluation for the presence of mucosal polyps is considered limited in the setting of bowel redundancy and diffuse diverticulosis. There is no appreciable mucosal ulceration. Fluoroscopic Radiation Summary: Fluoro time: 4:24 min:sec Total number of acquisitions and radiographs: 38 IMPRESSION: Unobstructed retrograde opacification of the colon to the cecum with opacification of the appendix and reflux of contrast material into the distal small bowel. Diffuse colonic diverticulosis with extensive diverticulosis of the distal descending and sigmoid colon with associated muscular hypertrophy. Evaluation of the sigmoid colon is limited by redundancy, muscular hypertrophy and extensive diverticulosis. No evidence of annular obstructing lesion ascending, transverse or proximal descending colon. Limited evaluation for the presence of mucosal polyps in the setting of diffuse diverticulosis. Extrusion Technician: JEFFERY Transcribe Date/Time: Oct 04 2020 1:30P Dictated by : AHSAN CLEMONS MD This examination was interpreted and the report reviewed and electronically signed by: AHSAN CLEMONS MD on Oct 04 2020 1:49PM EST Normal [facility] Hematologyon 02-10-2019 Hematocrit (Bld) [Volume fraction] 39.8 % See Below [facility] Work Phone: Comment on above: Reference Range: 36. 0 - 46.0 Hemoglobin (Bld) [Mass/Vol] 12.3 g/dL See Below [facility] Work Phone: Comment on above: Reference Range: 12. 0 - 16.0 MCV (RBC) [Entitic vol] 97 fL 80 - 100 [facility] Work Phone: Platelets (Bld) [#/Vol] 197 {x10E9/L} 150 - 450 [facility] [facility] Work Phone: RBC (Bld) [#/Vol] 4.12 {x10E12/L} See Below [facility] Work Phone: Comment on above: Reference Range: 4.0 0 - 5.20 WBC (Bld) [#/Vol] 4.8 {x10E9/L} 4.4 - 11.3 [facility] Work Phone: WBC (Bld) [#/Vol] 0.0 {/100_WBC} 0.0-0.0 [facility] Work Phone: Otheron 02-10-2019 Erythrocyte distribution width (RBC) [Ratio] 15.2 % above high threshold See Below [facility] Work Phone: Comment on above: Reference Range: 11. 5 - 14.5 MCHC (RBC) [Mass/Vol] 30.9 g/dL below low threshold See Below [facility] Work Phone: Comment on above: Reference Range: 32. 0 - 36.0 Renal Function Panelon 02-10 Albumin BCP dye [Mass/Vol] 4.0 g/dL 3.4 - 5.0 [facility] Work Phone: Anion gap [Moles/Vol] 12 mmol/L 10 - 20 [facility] Work Phone: Calcium [Mass/Vol] 9.7 mg/dL 8.6 - 10.6 [facility] Work Phone: Chloride [Moles/Vol] 110 mmol/L above high threshold 98 - 107 [facility] Work Phone: CO2 [Moles/Vol] 24 mmol/L 21 - 32 [facility] Work Phone: Creatinine [Mass/Vol] 1.41 mg/dL above high threshold See Below [facility] Work Phone: Comment on above: Reference Range: 0.5 0 - 1.05 Glucose [Mass/Vol] 94 mg/dL 74 - 99 [facility] Work Phone: Phosphate [Mass/Vol] 3.6 mg/dL 2.5 - 4.9 [facility] Work Phone: Comment on above: The performance mendy acteristics of phosphorus testing in heparinized plasma have been validated by the individual laboratory site where testing is performed. Testing on heparinized plasma is not approved by the FDA; however, such approval is not necessary. Potassium [Moles/Vol] 5.0 mmol/L 3.5 - 5.3 [facility] Work Phone: Sodium [Moles/Vol] 141 mmol/L 136 - 145 [facility] Work Phone: Urea nitrogen [Mass/Vol] 29 mg/dL above high threshold 6 - 23 [facility] Work Phone: Renal Function Panel 44 {mL/min/1.73m2} Abnormal >60 [facility] Work Phone: Comment on above: CALCULATIONS OF LEATHA MATED GFR ARE PERFORMED USING THE MDRD STUDY EQUATION FOR THE IDMS-TRACEABLE CREATININE METHODS. CLIN CHEM 2007;53:766-72 Renal Function Panel 36 {mL/min/1.73m2} Abnormal >60 [facility] Work Phone: Hematologyon 01-21-2019 Hematocrit (Bld) [Volume fraction] 34.3 % below low threshold See Below [facility] [facility] Work Phone: Comment on above: Reference Range: 36. 0 - 46.0 Hemoglobin (Bld) [Mass/Vol] 10.6 g/dL below low threshold See Below [facility] Work Phone: Comment on above: Reference Range: 12. 0 - 16.0 MCV (RBC) [Entitic vol] 97 fL 80 - 100 [facility] Work Phone: Platelets (Bld) [#/Vol] 175 {x10E9/L} 150 - 450 [facility] Work Phone: RBC (Bld) [#/Vol] 3.55 {x10E12/L} below low threshold See Below [facility] Work Phone: Comment on above: Reference Range: 4.0 0 - 5.20 WBC (Bld) [#/Vol] 4.7 {x10E9/L} 4.4 - 11.3 [facility] Work Phone: WBC (Bld) [#/Vol] 0.0 {/100_WBC} 0.0-0.0 [facility] Work Phone: Otheron 01-21-2019 Erythrocyte distribution width (RBC) [Ratio] 14.9 % above high threshold See Below [facility] Work Phone: Comment on above: Reference Range: 11. 5 - 14.5 MCHC (RBC) [Mass/Vol] 30.9 g/dL below low threshold See Below [facility] Work Phone: Comment on above: Reference Range: 32. 0 - 36.0 Renal Function Panelon 01-21 Albumin BCP dye [Mass/Vol] 2.9 g/dL below low threshold 3.4 - 5.0 [facility] Work Phone: Anion gap [Moles/Vol] 13 mmol/L 10 - 20 [facility] Work Phone: Calcium [Mass/Vol] 7.7 mg/dL below low threshold 8.6 - 10.6 [facility] Work Phone: Chloride [Moles/Vol] 111 mmol/L above high threshold 98 - 107 [facility] Work Phone: CO2 [Moles/Vol] 17 mmol/L below low threshold 21 - 32 [facility] Work Phone: Creatinine [Mass/Vol] 1.07 mg/dL above high threshold See Below [facility] Work Phone: Comment on above: Reference Range: 0.5 0 - 1.05 Glucose [Mass/Vol] 114 mg/dL above high threshold 74 - 99 [facility] Work Phone: Phosphate [Mass/Vol] 1.2 mg/dL below low threshold 2.5 - 4.9 [facility] Work Phone: Comment on above: The performance mendy acteristics of phosphorus testing in heparinized plasma have been validated by the individual laboratory site where testing is performed. Testing on heparinized plasma is not approved by the FDA; however, such approval is not necessary. Potassium [Moles/Vol] 4.5 mmol/L 3.5 - 5.3 [facility] Work Phone: Sodium [Moles/Vol] 136 mmol/L 136 - 145 [facility] Work Phone: Urea nitrogen [Mass/Vol] 23 mg/dL 6 - 23 [facility] Work Phone: Renal Function Panel 50 {mL/min/1.73m2} Abnormal >60 [facility] Work Phone: Renal Function Panel 61 {mL/min/1.73m2} >60 [facility] Work Phone: Comment on above: CALCULATIONS OF LEATHA MATED GFR ARE PERFORMED USING THE MDRD STUDY EQUATION FOR THE IDMS-TRACEABLE CREATININE METHODS. CLIN CHEM 2007;53:766-72 Tacrolimuson 01-21-2019 Tacrolimus (Bld) [Mass/Vol] 6.4 ng/mL 2.0 - 15.0 [facility] Work Phone: Comment on above: NOTE: Result was obt ained using a chemiluminescent microparticle immunoassay (CMIA) on the [employer] i system.Optimal therapeutic ranges for immuno-suppressant drugs depend upon an individualpatient's current clinical state, type oforgan transplant, time post-transplant,co-administration of other immunosuppressants,and other clinical factors. The results ofthis test should be correlated with additionalclinical and laboratory data before changesin treatment regimens are made. Hematologyon 01-20-2019 aPTT Coag (PPP) [Time] 24 {sec} below low threshold 28 - 38 [facility] Work Phone: Comment on above: THE APTT IS NO LONGE R USED FOR MONITORING UNFRACTIONATED HEPARIN THERAPY. FOR MONITORING HEPARIN THERAPY, USE THE HEPARIN ASSAY. Hematocrit (Bld) [Volume fraction] 34.6 % below low threshold See Below [facility] Work Phone: Comment on above: Reference Range: 36. 0 - 46.0 Hemoglobin (Bld) [Mass/Vol] 10.1 g/dL below low threshold See Below [facility] Work Phone: Comment on above: Reference Range: 12. 0 - 16.0 INR Coag (PPP) [Relative time] 1.0 {INR} 0.9 - 1.1 [facility] Work Phone: MCV (RBC) [Entitic vol] 103 fL above high threshold 80 - 100 [facility] Work Phone: Platelets (Bld) [#/Vol] 171 {x10E9/L} 150 - 450 [facility] Work Phone: PT Coag (PPP) [Time] 10.6 {sec} 9.7 - 12.7 [facility] Work Phone: RBC (Bld) [#/Vol] 3.35 {x10E12/L} below low threshold See Below [facility] Work Phone: Comment on above: Reference Range: 4.0 0 - 5.20 WBC (Bld) [#/Vol] 0.0 {/100_WBC} 0.0-0.0 [facility] Work Phone: WBC (Bld) [#/Vol] 4.8 {x10E9/L} 4.4 - 11.3 [facility] [facility] Work Phone: Metabolic Panelon 01-20-2019 Anion gap [Moles/Vol] Canceled [facility] Work Phone: Comment on above: CXD BMP CALLED RB TO RN JANUARY [facility] SPECIMEN CONTAMINATION, 01/20/2019 10:07TEST BASIC METABOLIC PANEL WAS CANCELLED, 01/20/2019 10:05 TEST CANCELLED PER NURSE CHANDA [facility], SPECIMEN CONTAMINATION. Calcium [Mass/Vol] Canceled [facility] Work Phone: Comment on above: CXD BMP CALLED RB TO RN JANUARY [facility] SPECIMEN CONTAMINATION, 01/20/2019 10:07TEST BASIC METABOLIC PANEL WAS CANCELLED, 01/20/2019 10:05 TEST CANCELLED PER NURSE CHANDA [facility], SPECIMEN CONTAMINATION. Chloride [Moles/Vol] Canceled [facility] Work Phone: Comment on above: CXD BMP CALLED RB TO RN JANUARY [facility] SPECIMEN CONTAMINATION, 01/20/2019 10:07TEST BASIC METABOLIC PANEL WAS CANCELLED, 01/20/2019 10:05 TEST CANCELLED PER NURSE CHANDA [facility], SPECIMEN CONTAMINATION. CO2 [Moles/Vol] Canceled [facility] Work Phone: Comment on above: CXD BMP CALLED RB TO RN JANUARY [facility] SPECIMEN CONTAMINATION, 01/20/2019 10:07TEST BASIC METABOLIC PANEL WAS CANCELLED, 01/20/2019 10:05 TEST CANCELLED PER NURSE [facility], SPECIMEN CONTAMINATION. Creatinine [Mass/Vol] Canceled [facility] Work Phone: Comment on above: CXD BMP CALLED RB TO RN JANUARY [facility] SPECIMEN CONTAMINATION, 01/20/2019 10:07TEST BASIC METABOLIC PANEL WAS CANCELLED, 01/20/2019 10:05 TEST CANCELLED PER NURSE CHANDA [facility], SPECIMEN CONTAMINATION. Glucose [Mass/Vol] Canceled [facility] [facility] Work Phone: Comment on above: CXD BMP CALLED RB TO RN [facility] SPECIMEN CONTAMINATION, 01/20/2019 10:07TEST BASIC METABOLIC PANEL WAS CANCELLED, 01/20/2019 10:05 TEST CANCELLED PER NURSE [facility], SPECIMEN CONTAMINATION. Potassium [Moles/Vol] Canceled [facility] [facility] Work Phone: Comment on above: CXD BMP CALLED RB TO RN JANUARY [facility] SPECIMEN CONTAMINATION, 01/20/2019 10:07TEST BASIC METABOLIC PANEL WAS CANCELLED, 01/20/2019 10:05 TEST CANCELLED PER NURSE [facility], SPECIMEN CONTAMINATION. Sodium [Moles/Vol] Canceled [facility] Work Phone: Comment on above: CXD BMP CALLED RB TO RN [facility] SPECIMEN CONTAMINATION, 01/20/2019 10:07TEST BASIC METABOLIC PANEL WAS CANCELLED, 01/20/2019 10:05 TEST CANCELLED PER NURSE [facility], SPECIMEN CONTAMINATION. Urea nitrogen [Mass/Vol] Canceled [facility] Work Phone: Comment on above: CXD BMP CALLED RB TO RN [facility]DA [facility] SPECIMEN CONTAMINATION, 01/20/2019 10:07TEST BASIC METABOLIC PANEL WAS CANCELLED, 01/20/2019 10:05 TEST CANCELLED PER NURSE [facility], SPECIMEN CONTAMINATION. Otheron 01-20-2019 XR Abdomen AP Interpreted by: Leonora TAVERAS01/20/19 17:06MRN: [id number] Name: [facility] STUDY: ABDOMEN AP VIEW; 01/20/2019 6:40 am INDICATION:SBO. COMPARISON:Abdominal radiograph dated 01/19/2018 ORDERING CLINICIAN:STELLA JORDAN FINDINGS:Enteric tube is seen with tip overlying the gastric antrum/pylorus.Nonobstructi ve bowel gas pattern. Scattered retained colonic stool isseen. Limited evaluation of pneumoperitoneum on supine imaging,however no gross evidence of free air is noted. Left basilar atelectasis is again noted. Osseous structures demonstrate no acute bony changes. IMPRESSION:1. Enteric tube with tip overlying the gastric antrum/pylorus.2. Nonobstructive bowel gas pattern.Electronically signed by: Leonora TAVERAS 01/20/19 17:06 Normal [facility] [facility] Work Phone: Comment on above: Ordering Provider: Claudia JORDAN [id number] Erythrocyte distribution width (RBC) [Ratio] 15.0 % above high threshold See Below [facility] Work Phone: Comment on above: Reference Range: 11. 5 - 14.5 MCHC (RBC) [Mass/Vol] 29.2 g/dL below low threshold See Below [facility] Work Phone: Comment on above: Reference Range: 32. 0 - 36.0 Canceled [facility] Work Phone: Comment on above: CXD BMP CALLED RB TO RN January SPECIMEN CONTAMINATION, 01/20/2019 10:07TEST BASIC METABOLIC PANEL WAS CANCELLED, 01/20/2019 10:05 TEST CANCELLED PER NURSE January, SPECIMEN CONTAMINATION. CALCULATIONS OF LEATHA MATED GFR ARE PERFORMED USING THE MDRD STUDY EQUATION FOR THE IDMS-TRACEABLE CREATININE METHODS. CLIN CHEM 2007;53:766-72 Not Calculated [facility] Work Phone: Comment on above: Reportable Range: 50 0-5,000,000 IU/mL. Please note: the testing methodology of the EBV VIRUS DNA QUANTIFICATION has been changed. Laboratory validation shows a good correlation between the results obtained from the new methodology and those obtained from the current testing performed in the reference laboratory. Should there be any issues that need to be clarified, please contact the [facility] at [phone]. InterpretationThe EBV VIRUS DNA Quantitative test is aPCR assay targeting the Lmp2A gene using [employer] ASR reagents. The analytical quantification range of this assay has been determined to be 500 to 5,000,000 IU/ml in plasma or whole blood. The limitof detection for this assay is 388 IU/ml. If the assay DETECTED the presence of the virus but was notable to accurately quantify the number of copies, thetest result will be reported as NOT QUANTIFIED. A negative result does not exclude the possibility of EBV virus infection since very low levels of infection or sampling error may cause a false negative result. This assay is intended for use in conjunction withclinical presentation and other laboratory markers ofdisease progression for the clinical management of EBV infected patients. This test was developed and itsperformance characteristics determined by the [facility], Department of Pathology,[place], [place]. It has not been cleared or approved by the [place] Food and DrugAdministration. The FDA has determined that such clearance is not necessary. It should not be regarded asinvestigational or for research use. Not Detected [facility] Work Phone: Comment on above: To convert IU/mL to copies/mL multiply result by 0.49. REF VALUENOT DETECTED Renal Function Panelon 01-20 Albumin BCP dye [Mass/Vol] 3.0 g/dL below low threshold 3.4 - 5.0 [facility] Work Phone: Anion gap [Moles/Vol] 16 mmol/L 10 - 20 [facility] Work Phone: Calcium [Mass/Vol] 7.8 mg/dL below low threshold 8.6 - 10.6 [facility] Work Phone: Chloride [Moles/Vol] 112 mmol/L above high threshold 98 - 107 [facility] Work Phone: CO2 [Moles/Vol] 14 mmol/L below low threshold 21 - 32 [facility] Work Phone: Creatinine [Mass/Vol] 1.17 mg/dL above high threshold See Below [facility] Work Phone: Comment on above: Reference Range: 0.5 0 - 1.05 Glucose [Mass/Vol] 136 mg/dL above high threshold 74 - 99 [facility] Work Phone: Phosphate [Mass/Vol] 2.0 mg/dL below low threshold 2.5 - 4.9 [facility] Work Phone: Comment on above: The performance mendy acteristics of phosphorus testing in heparinized plasma have been validated by the individual laboratory site where testing is performed. Testing on heparinized plasma is not approved by the FDA; however, such approval is not necessary. Potassium [Moles/Vol] 4.8 mmol/L 3.5 - 5.3 [facility] Work Phone: Sodium [Moles/Vol] 137 mmol/L 136 - 145 [facility] Work Phone: Urea nitrogen [Mass/Vol] 33 mg/dL above high threshold 6 - 23 [facility] Work Phone: Renal Function Panel 54 {mL/min/1.73m2} Abnormal >60 [facility] Work Phone: Comment on above: CALCULATIONS OF LEATHA MATED GFR ARE PERFORMED USING THE MDRD STUDY EQUATION FOR THE IDMS-TRACEABLE CREATININE METHODS. CLIN CHEM 2007;53:766-72 Renal Function Panel 45 {mL/min/1.73m2} Abnormal >60 [facility] Work Phone: Tacrolimuson 01-20-2019 Tacrolimus (Bld) [Mass/Vol] 4.9 ng/mL 2.0 - 15.0 [facility] Work Phone: Comment on above: NOTE: Result was obt ained using a chemiluminescent microparticle immunoassay (CMIA) on the [employer] i system.Optimal therapeutic ranges for immuno-suppressant drugs depend upon an individualpatient's current clinical state, type oforgan transplant, time post-transplant,co-administration of other immunosuppressants,and other clinical factors. The results ofthis test should be correlated with additionalclinical and laboratory data before changesin treatment regimens are made. Hematologyon 01-19-2019 ABO group Nom (Bld) O [facility] Work Phone: Blood group antibody screen Ql Negative [facility] Work Phone: Rh immune globulin screen (Bld) [Interp] Positive [facility] Work Phone: Hematocrit (Bld) [Volume fraction] 35.6 % below low threshold See Below [facility] Work Phone: Comment on above: Reference Range: 36. 0 - 46.0 Hemoglobin (Bld) [Mass/Vol] 10.5 g/dL below low threshold See Below [facility] Work Phone: Comment on above: Reference Range: 12. 0 - 16.0 MCV (RBC) [Entitic vol] 101 fL above high threshold 80 - 100 [facility] Work Phone: Platelets (Bld) [#/Vol] 186 {x10E9/L} 150 - 450 [facility] Work Phone: RBC (Bld) [#/Vol] 3.52 {x10E12/L} below low threshold See Below [facility] Work Phone: Comment on above: Reference Range: 4.0 0 - 5.20 WBC (Bld) [#/Vol] 0.0 {/100_WBC} 0.0-0.0 [facility] Work Phone: WBC (Bld) [#/Vol] 4.9 {x10E9/L} 4.4 - 11.3 [facility] Work Phone: Magnesium, Serumon 9 Magnesium [Mass/Vol] 1.83 mg/dL See Below [facility] Work Phone: Comment on above: Reference Range: 1.6 0 - 2.40 Otheron 01-19-2019 ORDER RECD [facility] Work Phone: ORDER RECD [facility] Work Phone: XR Abdomen AP Interpreted by: Leonora TAVERAS01/19/19 10:00MRN: [id number] Name: [facility] STUDY:ABDOMEN AP VIEW; 01/19/2019 9:05 am INDICATION:Monitor bowel obstruction and distention. COMPARISON:01/18/2019 ORDERING CLINICIAN:NICOLE CERDA FINDINGS:NG tube overlies the body of stomach. Interval slight intervaldecompression of prominent small bowel loops. Limited evaluation ofpneumoperitoneum on supine imaging, however no gross evidence of freeair is noted. Left basilar atelectasis. Osseous structures demonstrate no acute bony changes. IMPRESSION:1. NG tube overlies the antrum/pylorus of stomach. Slight intervalimprovement in small bowel decompression.Electronicall y signed by: Leonora TAVERAS 01/19/19 10:00 Normal [facility] Work Phone: Erythrocyte distribution width (RBC) [Ratio] 15.4 % above high threshold See Below [facility] Work Phone: Comment on above: Reference Range: 11. 5 - 14.5 MCHC (RBC) [Mass/Vol] 29.5 g/dL below low threshold See Below [facility] [facility] Work Phone: Comment on above: Reference Range: 32. 0 - 36.0 Renal Function Panelon 01-19 Albumin BCP dye [Mass/Vol] 3.1 g/dL below low threshold 3.4 - 5.0 [facility] Work Phone: Anion gap [Moles/Vol] 20 mmol/L 10 - 20 [facility] Work Phone: Calcium [Mass/Vol] 8.9 mg/dL 8.6 - 10.6 [facility] Work Phone: Chloride [Moles/Vol] 110 mmol/L above high threshold 98 - 107 [facility] [facility] Work Phone: CO2 [Moles/Vol] 16 mmol/L below low threshold 21 - 32 [facility] Work Phone: Creatinine [Mass/Vol] 1.48 mg/dL above high threshold See Below [facility] Work Phone: Comment on above: Reference Range: 0.5 0 - 1.05 Glucose [Mass/Vol] 58 mg/dL below low threshold 74 - 99 [facility] Work Phone: Phosphate [Mass/Vol] 4.1 mg/dL 2.5 - 4.9 [facility] Work Phone: Comment on above: The performance mendy acteristics of phosphorus testing in heparinized plasma have been validated by the individual laboratory site where testing is performed. Testing on heparinized plasma is not approved by the FDA; however, such approval is not necessary. Potassium [Moles/Vol] 5.2 mmol/L 3.5 - 5.3 [facility] Work Phone: Sodium [Moles/Vol] 141 mmol/L 136 - 145 [facility] Work Phone: Urea nitrogen [Mass/Vol] 38 mg/dL above high threshold 6 - 23 [facility] [facility] Work Phone: Renal Function Panel 34 {mL/min/1.73m2} Abnormal >60 [facility] Work Phone: Renal Function Panel 41 {mL/min/1.73m2} Abnormal >60 [facility] Work Phone: Comment on above: CALCULATIONS OF LEATHA MATED GFR ARE PERFORMED USING THE MDRD STUDY EQUATION FOR THE IDMS-TRACEABLE CREATININE METHODS. CLIN CHEM 2007;53:766-72 Tacrolimuson 04-08-2019 Tacrolimus (Bld) [Mass/Vol] 6.7 ng/mL 2.0 - 15.0 [facility] [facility] Work Phone: Comment on above: NOTE: Result was obt ained using a chemiluminescent microparticle immunoassay (CMIA) on the Building [employer] i system.Optimal therapeutic ranges for immuno-suppressant drugs depend upon an individualpatient's current clinical state, type oforgan transplant, time post-transplant,co-administration of other immunosuppressants,and other clinical factors. The results ofthis test should be correlated with additionalclinical and laboratory data before changesin treatment regimens are made. Amylase, Serumon 01-18-2019 Amylase [Catalytic activity/Vol] 46 U/L 29 - 103 [facility] Work Phone: Complete Blood Count + Diffe rentialon 01-18-2019 Basophils (Bld) [#/Vol] 0.03 {x10E9/L} See Below [facility] Work Phone: Comment on above: Reference Range: 0.0 0 - 0.10 Basophils/100 WBC (Bld) 0.5 % 0.0 - 2.0 [facility] Work Phone: Eosinophils (Bld) [#/Vol] 0.11 {x10E9/L} See Below [facility] Work Phone: Comment on above: Reference Range: 0.0 0 - 0.40 Eosinophils/100 WBC (Bld) 1.7 % 0.0 - 6.0 [facility] Work Phone: Erythrocyte distribution width (RBC) [Ratio] 15.4 % above high threshold See Below [facility] Work Phone: Comment on above: Reference Range: 11. 5 - 14.5 Hematocrit (Bld) [Volume fraction] 35.0 % below low threshold See Below [facility] Work Phone: Comment on above: Reference Range: 36. 0 - 46.0 Hemoglobin (Bld) [Mass/Vol] 11.5 g/dL below low threshold See Below [facility] Work Phone: Comment on above: Reference Range: 12. 0 - 16.0 Lymphocytes (Bld) [#/Vol] 0.85 {x10E9/L} See Below [facility] Work Phone: Comment on above: Reference Range: 0.8 0 - 3.00 Lymphocytes/100 WBC (Bld) 13.0 % See Below [facility] Work Phone: Comment on above: Reference Range: 13. 0 - 44.0 MCHC (RBC) [Mass/Vol] 32.9 g/dL See Below [facility] Work Phone: Comment on above: Reference Range: 32. 0 - 36.0 MCV (RBC) [Entitic vol] 90 fL 80 - 100 [facility] Work Phone: Monocytes (Bld) [#/Vol] 1.26 {x10E9/L} above high threshold See Below [facility] Work Phone: Comment on above: Reference Range: 0.0 5 - 0.80 Monocytes/100 WBC (Bld) 19.3 % 2.0 - 10.0 [facility] Work Phone: Neutrophils (Bld) [#/Vol] 4.25 {x10E9/L} See Below [facility] Work Phone: Comment on above: Reference Range: 1.6 0 - 5.50 Neutrophils/100 WBC (Bld) 65.2 % See Below [facility] Work Phone: Comment on above: Reference Range: 40. 0 - 80.0 Platelets (Bld) [#/Vol] 222 {x10E9/L} 150 - 450 [facility] Work Phone: RBC (Bld) [#/Vol] 3.87 {x10E12/L} below low threshold See Below [facility] Work Phone: Comment on above: Reference Range: 4.0 0 - 5.20 WBC (Bld) [#/Vol] 0.0 {/100_WBC} 0.0-0.0 [facility] Work Phone: WBC (Bld) [#/Vol] 6.5 {x10E9/L} 4.4 - 11.3 [facility] Work Phone: Complete Blood Count + Differential 0.3 % 0.0 - 0.9 [facility] Work Phone: Comment on above: Percent differential counts (%) should be interpreted in the context of the absolute cell counts (cells/L). Lipase, Serumon 01-18-2019 Lipase [Catalytic activity/Vol] 10 U/L 9 - 82 [facility] Work Phone: Comment on above: Venipuncture immedia tely after or during the administration of Metamizole may lead to falsely low results. Testing should be performed immediately prior to Metamizole dosing. Magnesium, Serumon 9 Magnesium [Mass/Vol] 2.20 mg/dL See Below [facility] Work Phone: Comment on above: Reference Range: 1.6 0 - 2.40 Otheron 01-18-2019 XR Abdomen AP Interpreted by: PARI MARTIN01/18/19 08:54MRN: [id number] Name: [facility] STUDY:ABDOMEN AP VIEW; 01/18/2019 7:16 am INDICATION:Small bowel obstruction. COMPARISON:Radiograph and CT abdomen/pelvis from 01/17/2019 ORDERING CLINICIAN:STELLA JORDAN FINDINGS:Satisfactory positioning of enteric tube extending below thediaphragm with the tip and side hole projecting over the gastric body. Redemonstration of multiple dilated air and fluid-filled loops ofbowel consistent with small bowel obstruction. There is no evidenceof pneumoperitoneum. Visualized lung bases demonstrate mild streaky airspace opacities,likely atelectasis. Osseous structures demonstrate no acute bony changes. IMPRESSION:1. Dilated air and fluid-filled bowel loops consistent with smallbowel obstruction better appreciated on previous CT.2. Satisfactory positioning of enteric tube. I personally reviewed the images/study and I agree with the findingsas stated. This study was interpreted at [place], [place].Electronically signed by: PARI MARTIN 01/18/19 08:54 Normal [facility] Work Phone: Comment on above: Ordering Provider: Claudia JORDAN [id number] Renal Function Panelon 01-18 Albumin BCP dye [Mass/Vol] 3.7 g/dL 3.4 - 5.0 [facility] Work Phone: Anion gap [Moles/Vol] 16 mmol/L 10 - 20 [facility] Work Phone: Calcium [Mass/Vol] 10.0 mg/dL 8.6 - 10.6 [facility] Work Phone: Chloride [Moles/Vol] 102 mmol/L 98 - 107 [facility] [facility] Work Phone: CO2 [Moles/Vol] 26 mmol/L 21 - 32 [facility] Work Phone: Creatinine [Mass/Vol] 1.96 mg/dL above high threshold See Below [facility] Work Phone: Comment on above: Reference Range: 0.5 0 - 1.05 Glucose [Mass/Vol] 98 mg/dL 74 - 99 [facility] Work Phone: Phosphate [Mass/Vol] 6.9 mg/dL above high threshold 2.5 - 4.9 [facility] Work Phone: Comment on above: The performance mendy acteristics of phosphorus testing in heparinized plasma have been validated by the individual laboratory site where testing is performed. Testing on heparinized plasma is not approved by the FDA; however, such approval is not necessary. Potassium [Moles/Vol] 5.2 mmol/L 3.5 - 5.3 [facility] Work Phone: Sodium [Moles/Vol] 139 mmol/L 136 - 145 [facility] Work Phone: Urea nitrogen [Mass/Vol] 42 mg/dL above high threshold 6 - 23 [facility] Work Phone: Renal Function Panel 25 {mL/min/1.73m2} Abnormal >60 [facility] Work Phone: Renal Function Panel 30 {mL/min/1.73m2} Abnormal >60 [facility] Work Phone: Comment on above: CALCULATIONS OF LEATHA MATED GFR ARE PERFORMED USING THE MDRD STUDY EQUATION FOR THE IDMS-TRACEABLE CREATININE METHODS. CLIN CHEM 2007;53:766-72 Tacrolimuson 01-18-2019 Tacrolimus (Bld) [Mass/Vol] 6.1 ng/mL 2.0 - 15.0 [facility] Work Phone: Comment on above: NOTE: Result was obt ained using a chemiluminescent microparticle immunoassay (CMIA) on the Building [employer] i system.Optimal therapeutic ranges for immuno-suppressant drugs depend upon an individualpatient's current clinical state, type oforgan transplant, time post-transplant,co-administration of other immunosuppressants,and other clinical factors. The results ofthis test should be correlated with additionalclinical and laboratory data before changesin treatment regimens are made. Complete Blood Count + Diffe rentialon 01-17-2019 Basophils (Bld) [#/Vol] 0.03 {x10E9/L} See Below [facility] Work Phone: Comment on above: Reference Range: 0.0 0 - 0.10 Ordering Provider: Telly MORRISON 10401 Basophils/100 WBC (Bld) 0.3 % 0.0 - 2.0 [facility] Work Phone: Comment on above: Ordering Provider: Telly MORRISON 03614 Eosinophils (Bld) [#/Vol] 0.01 {x10E9/L} See Below [facility] Work Phone: Comment on above: Reference Range: 0.0 0 - 0.40 Ordering Provider: Telly MORRISON 48833 Eosinophils/100 WBC (Bld) 0.1 % 0.0 - 6.0 [facility] Work Phone: Comment on above: Ordering Provider: Telly MORRISON 61906 Erythrocyte distribution width (RBC) [Ratio] 15.0 % above high threshold See Below [facility] Work Phone: Comment on above: Reference Range: 11. 5 - 14.5 Ordering Provider: Telly MORRISON 63334 Hematocrit (Bld) [Volume fraction] 37.4 % See Below [facility] Work Phone: Comment on above: Reference Range: 36. 0 - 46.0 Ordering Provider: Telly MORRISON 09625 Hemoglobin (Bld) [Mass/Vol] 12.6 g/dL See Below [facility] Work Phone: Comment on above: Reference Range: 12. 0 - 16.0 Ordering Provider: Telly MORRISON 65438 Lymphocytes (Bld) [#/Vol] 0.72 {x10E9/L} below low threshold See Below [facility] Work Phone: Comment on above: Reference Range: 0.8 0 - 3.00 Ordering Provider: Telly MORRISON 82739 Lymphocytes/100 WBC (Bld) 7.2 % See Below [facility] Work Phone: Comment on above: Reference Range: 13. 0 - 44.0 Ordering Provider: Telly MORRISON 28626 MCHC (RBC) [Mass/Vol] 33.7 g/dL See Below [facility] Work Phone: Comment on above: Reference Range: 32. 0 - 36.0 Ordering Provider: Telly MORRISON 88012 MCV (RBC) [Entitic vol] 87 fL 80 - 100 [facility] Work Phone: Comment on above: Ordering Provider: Telly MORRISON 87565 Monocytes (Bld) [#/Vol] 1.24 {x10E9/L} above high threshold See Below [facility] Work Phone: Comment on above: Reference Range: 0.0 5 - 0.80 Ordering Provider: Telly MORRISON 81185 Monocytes/100 WBC (Bld) 12.4 % 2.0 - 10.0 [facility] Work Phone: Comment on above: Ordering Provider: Telly MORRISON 21211 Neutrophils/100 WBC (Bld) 79.6 % See Below [facility] Work Phone: Comment on above: Reference Range: 40. 0 - 80.0 Ordering Provider: Telly MORRISON 26301 Platelets (Bld) [#/Vol] 247 {x10E9/L} 150 - 450 [facility] Work Phone: Comment on above: Ordering Provider: Telly MORRISON 03440 RBC (Bld) [#/Vol] 4.30 {x10E12/L} See Below [facility] Work Phone: Comment on above: Reference Range: 4.0 0 - 5.20 Ordering Provider: Telly MORRISON 87318 WBC (Bld) [#/Vol] 10.0 {x10E9/L} 4.4 - 11.3 [facility] Work Phone: Comment on above: Ordering Provider: Telly MORRISON 12538 WBC (Bld) [#/Vol] 0.0 {/100_WBC} 0.0-0.0 [facility] Work Phone: Comment on above: Ordering Provider: Telly MORRISON 97226 Complete Blood Count + Differential 7.99 {x10E9/L} above high threshold See Below [facility] Work Phone: Comment on above: Reference Range: 1.6 0 - 5.50 Ordering Provider: Telly MORRISON 45999 Complete Blood Count + Differential 0.4 % 0.0 - 0.9 [facility] Work Phone: Comment on above: Percent differential counts (%) should be interpreted in the context of the absolute cell counts (cells/L). Ordering Provider: Tlely MORRISON 94145 Hematologyon 01-17-2019 ABO group Nom (Bld) O [facility] Work Phone: Comment on above: Ordering Provider: Telly MORRISON 44229 aPTT Coag (PPP) [Time] 25 {sec} below low threshold 28 - 38 [facility] Work Phone: Comment on above: THE APTT IS NO LONGE R USED FOR MONITORING UNFRACTIONATED HEPARIN THERAPY. FOR MONITORING HEPARIN THERAPY, USE THE HEPARIN ASSAY. Ordering Provider: Telly MORRISON 84882 Blood group antibody screen Ql Negative [facility] Work Phone: Comment on above: Ordering Provider: Telly MORRISON 73797 INR Coag (PPP) [Relative time] 0.9 {INR} 0.9 - 1.1 [facility] Work Phone: Comment on above: Ordering Provider: Telly MORRISON 39330 PT Coag (PPP) [Time] 10.3 {sec} 9.7 - 12.7 [facility] [facility] Work Phone: Comment on above: Ordering Provider: Telly MORRISON 67593 Rh immune globulin screen (Bld) [Interp] Positive [facility] Work Phone: Comment on above: Ordering Provider: Telly MORRISON 17788 Metabolic Panelon 01-17-2019 ALP [Catalytic activity/Vol] 51 U/L 33 - 136 [facility] Work Phone: Comment on above: Ordering Provider: Telly MORRISON 22966 Anion gap [Moles/Vol] 16 mmol/L 10 - 20 [facility] Work Phone: Comment on above: Ordering Provider: Telly MORRISON 95065 Bilirubin [Mass/Vol] 0.5 mg/dL 0.0 - 1.2 [facility] Work Phone: Comment on above: Ordering Provider: Telly OWENS 37637 Calcium [Mass/Vol] 10.4 mg/dL 8.6 - 10.6 [facility] Work Phone: Comment on above: Ordering Provider: Telly OWENS 63607 Chloride [Moles/Vol] 100 mmol/L 98 - 107 [facility] [facility] Work Phone: Comment on above: Ordering Provider: Telly OWNES 10453 CO2 [Moles/Vol] 26 mmol/L 21 - 32 [facility] Work Phone: Comment on above: Ordering Provider: Telly OWENS 60785 Creatinine [Mass/Vol] 1.83 mg/dL above high threshold See Below [facility] Work Phone: Comment on above: Reference Range: 0.5 0 - 1.05 Ordering Provider: Telly OWENS 21835 Glucose [Mass/Vol] 126 mg/dL above high threshold 74 - 99 [facility] Work Phone: Comment on above: Ordering Provider: E AUGUSTO MAGRANS 58457 Potassium [Moles/Vol] 5.4 mmol/L above high threshold 3.5 - 5.3 [facility] Work Phone: Comment on above: Ordering Provider: E AUGUSTO MAGRANS 08482 Protein [Mass/Vol] 6.4 g/dL 6.4 - 8.2 [facility] Work Phone: Comment on above: Ordering Provider: E AUGUSTO MAGRANS 38715 Sodium [Moles/Vol] 137 mmol/L 136 - 145 [facility] Work Phone: Comment on above: Ordering Provider: E AUGUSTO MAGRANS 45364 Urea nitrogen [Mass/Vol] 42 mg/dL above high threshold 6 - 23 [facility] Work Phone: Comment on above: Ordering Provider: E AUGUSTO MAGRANS 44987 Otheron 01-17-2019 Interpreted by: ANDLeonora WHYTE01/17/19 21:48MRN: [id number] Name: [facility] STUDY:CT ABDOMEN AND PELVIS WO CONTRAST; 01/17/2019 8:57 pm INDICATION:SBO, Lie Flat: Yes. COMPARISON:CT of abdomen pelvis dated 08/14/2011. ORDERING CLINICIAN:SUNNY RHOADES TECHNIQUE:CT of the abdomen and pelvis was performed. Contiguous axial imageswere obtained at 3 mm slice thickness through the abdomen and pelvis.Coronal and sagittal reconstructions at 3 mm slice thickness wereperformed. No intravenous contrast was administered; positive oralcontrast was given. FINDINGS:Please note that the evaluation of vessels, lymph nodes and organs islimited without intravenous contrast. LOWER CHEST:There are bibasilar dependent atelectasis. Linear densities in thebilateral lobes may also represent band like atelectasis/scarring.There are relatively unchanged tree-in-bud opacities in the rightlower lobe (axial image 9, 16/136). No sided pleural effusion. Theheart is normal in size without significant pericardial effusion.There are dense calcifications along the mitral valvular annulus.There is small hiatal hernia. A lobulated simple fluid attenuatingstructure within the medial right costophrenic angle is unchanged andlikely represents a pericardial cyst. ABDOMEN: LIVER:The liver is normal in size without evidence of focal liver lesions. BILE DUCTS:The intrahepatic and extrahepatic ducts are not dilated. GALLBLADDER:The gallbladder is nondistended and without evidence of radiopaquestones. PANCREAS:There is stranding adjacent to the pancreatic head. Pancreatic bodyand tail are unremarkable. SPLEEN:The spleen is normal in size. Calcified granulomas are seen in thespleen. ADRENAL GLANDS:Bilateral adrenal glands appear normal. KIDNEYS AND URETERS:Bilateral asa'carsarmiut kidneys are atrophic. There are numerous hypodenselesions in the bilateral kidneys, likely represent cysts. 3.5 x 4.5cm minimally complex cystic lesion containing calcifications is againseen in the midpole left kidney, slightly increased in size comparedto CT dated 08/14/2011. Slightly hyperdense 2.9 cm exophytic cysticlesion in the midpole left kidney is stable compared to CT dated110/14/2010, likely hemorrhagic/proteinaceous cyst. There are multiplecalcified foci in the bilateral kidneys, may represent nonobstructivecalculi versus vascular calcifications. 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 No hydronephrosis. PELVIS: BLADDER:The urinary bladder is partially decompressed, limited for evaluation. REPRODUCTIVE ORGANS:No pelvic masses. Left ovary is visualized. BOWEL:Small hiatal hernia. The stomach is markedly distended. Enteric tubeis coursing through the esophagus and stomach with the tip in the 1stportion of the duodenum. There is diffuse dilatation of the smallbowel loops, measuring up to 4.3 cm. There is transition point in theright lower quadrant (axial image 64/139) with proximal small bowelfecalization. There is diffuse stranding within the righthemiabdomen. No definite evidence of pneumatosis. The large bowel isdecompressed. Pancolonic diverticulosis. Scattered area of strandingalong the ascending colon is likely secondary to small bowelobstruction rather than acute diverticulitis. The appendix is withinnormal limits. VESSELS:There is no aneurysmal dilatation of the abdominal aorta. There isdiffuse atherosclerotic calcification of the abdominal aorta andiliac vessels. The IVC appears normal. PERITONEUM/RETROPERITONEUM/ LYMPH NODES:No free intraperitoneal air. There is diffuse stranding in the righthemiabdomen. 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 There is a 1.4 x 1.8 cmhypoattenuating structure within the left retroperitoneal compartmentjust lateral to the left psoas muscle likely representing residualfluid collection that was previously present and much larger on08/14/2011. No new loculated fluid collection. Subcentimetermesenteric lymph nodes are likely reactive. ABDOMINAL WALL:The abdominal wall soft tissues appear normal. BONES:No acute osseous finding. 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 Degenerative discogenic disease is noted in the lower thoracicand lumbar spine. IMPRESSION:1. Distended stomach and diffuse small bowel dilatation withtransition point in the right lower abdomen with diffuse stranding inthe right hemiabdomen, consistent with high-grade small bowelobstruction perhaps due to adhesion. Enteric tube tip is in the 1stportion of the duodenum. No definite evidence of pneumatosis or freeintraperitoneal air.2. Stranding adjacent to the head of the pancreas, could be secondaryto above-mentioned small-bowel obstruction and/or mild acuteinterstitial pancreatitis. Correlate with amylase/lipase.3. Redemonstration of postsurgical change from kidney transplant inthe right iliac fossa.4. Atrophic asa'carsarmiut bilateral kidneys with multiple cysts.Redemonstration of minimally complex cyst containing calcificationsand probable proteinaceous/hemorrhagic cyst in the left kidney.Continued attention on follow-up is recommended.5. Minimal Tree-in-bud opacities in the right lower lobe of the lungwhich which were not significantly changed from prior study likelyrepresents sequela of previous aspiration or bronchiolitis. Nobronchial obstruction to suggest sizeable degree of aspiration.6. Hiatal hernia. Finding discussed with ED resident Dr. Zepeda by radiology residentDr. Brady at 9:15 pm.I personally reviewed the images/study and I agree with the findingsas stated. This study was interpreted at [place], [place].Electronically signed by: SUJATHA WHYTE 01/17/19 21:48 Normal [facility] Work Phone: Comment on above: Ordering Provider: Telly RHOADES 12404 XR Abdomen AP Interpreted by: ART GARVEY01/17/19 18:37MRN: [id number] Name: ANASTASIA [facility] STUDY:TH ABDOMEN AP VIEW; 01/17/2019 6:22 pm INDICATION:replaced ng. COMPARISON:01/17/2019. ORDERING CLINICIAN:SUNNY RHOADES FINDINGS:There is an enteric tube coursing midline with the distal tip andside port coiled within the stomach. There is redemonstration of marked gastric distension with relativepaucity of bowel gas within the visualized upper abdomen. There arefew air-fluid loops of what appears to be colon within the lefthemiabdomen. Findings are suggestive of at least a small-bowelobstruction. Continued serial follow-up radiographs is recommended toassess for resolution. There is a nonspecific 8 mm nodular opacity in the right lower lungzone. Nonemergent follow-up CT is recommended to exclude a pulmonarynodule. IMPRESSION:1. Please see findings. The information above was relayed directly by me by telephone SUNNY Keane on 01/17/2019 at 6:41 pm with readback verification.Electronically signed by: FIDEL GARVEY 01/17/19 18:37 Normal [facility] Work Phone: Comment on above: Ordering Provider: Telly RHOADES 70550 XR Abdomen AP Interpreted by: ART GARVEY01/17/19 18:33MRN: [id number] Name: [facility] STUDY:ABDOMEN AP VIEW; 01/17/2019 5:49 pm INDICATION:NG placement. COMPARISON:None. ORDERING CLINICIAN:SUNNY RHOADES FINDINGS:There is an enteric tube coursing midline coiled in the distalesophagus and redirected cranially. There is marked gastric distension. There is relative paucity ofbowel gas with a few air-fluid loops of bowel appreciated in the lefthemithorax. IMPRESSION:1. Enteric tube coursing midline, coiled in the distal esophagus, andredirected cranially. Recommend removal and replacement.2. Nonspecific bowel gas pattern with marked gastric distension ofthe stomach. Gastric outlet obstruction cannot be entirely excluded.Continued imaging follow-up is recommended. I personally reviewed the images/study and I agree with the findingsas stated. This study was interpreted at [facility], [place], [place].Electronically signed by: FIDEL GARVEY 01/17/19 18:33 Normal [facility] Work Phone: Comment on above: Ordering Provider: Telly RHOADES 26563 Albumin BCP dye [Mass/Vol] 4.2 g/dL 3.4 - 5.0 [facility] Work Phone: Comment on above: Ordering Provider: Telly MORRISON 48562 ALT With P-5'-P [Catalytic activity/Vol] 5 U/L below low threshold 7 - 45 [facility] Work Phone: Comment on above: Patients treated wit h Sulfasalazine may generate falsely decreased results for ALT. Ordering Provider: Telly MORRISON 47257 AST With P-5'-P [Catalytic activity/Vol] 11 U/L 9 - 39 [facility] Work Phone: Comment on above: Ordering Provider: Telly MORRISON 03994 33 {mL/min/1.73m2} Abnormal >60 [facility] Work Phone: Comment on above: CALCULATIONS OF LEATHA MATED GFR ARE PERFORMED USING THE MDRD STUDY EQUATION FOR THE IDMS-TRACEABLE CREATININE METHODS. CLIN CHEM 2007;53:766-72 Ordering Provider: Telly MORRISON 72068 27 {mL/min/1.73m2} Abnormal >60 [facility] Work Phone: Comment on above: Ordering Provider: Telly MORRISON 19275 Vital Signs Date Time Vital Sign Value Performing Clinician Bev mccall 06-23-2025 10:34-0400 Body height 149.[address] Osman See MD Work Phone: [phone] [place] [address] 06-23-2025 10:34-0400 Body mass index (BMI) [Ratio] 21.2 kg/m2 Dr. Osman See MD Work Phone: [phone] [place] [address] 06-23-2025 10:34-0400 Body temperature 99 [degF] Dr. Osman See MD Work Phone: [phone])350-307614 [place] [address] 06-23-2025 10:34-0400 Body weight 47.[address] Osman See MD Work Phone: [phone] [place] [address] 06-23-2025 10:34-0400 Diastolic blood pressure 70 mm[Hg] Dr. Osman See MD Work Phone: [phone])103-951714 [place] [address] 06-23-2025 10:34-0400 Heart rate 61 /min Dr. Osman See MD Work Phone: [phone] [place] [address] 06-23-2025 10:34-0400 Respiratory rate 18 /min Dr. Osman See MD Work Phone: [phone])162-845714 [place] [address] 06-23-2025 10:34-0400 SaO2% (BldA) [Mass fraction] 97 % Dr. Osman See MD Work Phone: [phone] [place] [address] 06-23-2025 10:34-0400 Systolic blood pressure 159 mm[Hg] Dr. Osman See MD Work Phone: [phone] [place] [address] 03-14-2025 18:56-0400 Body mass index (BMI) [Ratio] 20.7 kg/m2 Dr. Osman See MD Work Phone: [phone] [place] [address] 12-16-2024 11:18-0500 Body height 149.[address] Osman See MD Work Phone: [phone] [place] [address] 12-16-2024 11:18-0500 Body mass index (BMI) [Ratio] 21.9 kg/m2 Dr. Osman See MD Work Phone: [facility] 12-16-2024 11:18-0500 Body temperature 98.7 [degF] Dr. Osman See MD Work Phone: [facility] 12-16-2024 11:18-0500 Body weight 49.[address] Osman See MD Work Phone: [facility] 12-16-2024 11:18-0500 Diastolic blood pressure 79 mm[Hg] Dr. Osman See MD Work Phone: [facility] 12-16-2024 11:18-0500 Heart rate 77 /min Dr. Osman See MD Work Phone: [facility] 12-16-2024 11:18-0500 Respiratory rate 18 /min Dr. Osman See MD Work Phone: [facility] 12-16-2024 11:18-0500 SaO2% (BldA) [Mass fraction] 98 % Dr. Osman See MD Work Phone: [facility] 12-16-2024 11:18-0500 Systolic blood pressure 137 mm[Hg] Dr. Osman See MD Work Phone: [facility] 12-12-2024 05:06-0500 Body mass index (BMI) [Ratio] 20.7 kg/m2 Dr. Osman See MD Work Phone: [facility] 09-12-2024 23:57-0500 Body mass index (BMI) [Ratio] 20.7 kg/m2 Dr. Osman See MD Work Phone: [facility] 08-28-2024 12:50-0500 Diastolic blood pressure 69 mm[Hg] Yaw Apple MD Work Phone: [facility] 08-28-2024 12:50-0500 Respiratory rate 18 /min Yaw Apple MD Work Phone: [facility] 08-28-2024 12:50-0500 SaO2% (BldA) [Mass fraction] 100 % Yaw Apple MD Work Phone: [facility] 08-28-2024 12:50-0500 Systolic blood pressure 107 mm[Hg] Yaw Apple MD Work Phone: [facility] 08-28-2024 12:30-0500 Body temperature 96.8 [degF] Yaw Apple MD Work Phone: [facility] 08-28-2024 10:36-0500 Body height 149.9 cm Yaw Apple MD Work Phone: [facility] 08-28-2024 10:36-0500 Body mass index (BMI) [Ratio] 20.2 kg/m2 Yaw Apple MD Work Phone: [facility] 08-28-2024 10:36-0500 Body weight 45.36 kg Yaw Apple MD Work Phone: [facility] 08-28-2024 10:36-0500 Heart rate 74 /min Yaw Apple MD Work Phone: [facility] 08-26-2024 10:59-0500 Body mass index (BMI) [Ratio] 19.82 kg/m2 Nato Fisher MD Work Phone: [facility] 08-26-2024 10:59-0500 Body temperature 97.5 [degF] Nato Fisher MD Work Phone: [facility] 08-26-2024 10:59-0500 Body weight 47.58 kg Nato Fisher MD Work Phone: [facility] 08-26-2024 10:59-0500 Diastolic blood pressure 84 mm[Hg] Nato Fisher MD Work Phone: [facility] 08-26-2024 10:59-0500 Heart rate 73 /min Nato Fisher MD Work Phone: [facility] 08-26-2024 10:59-0500 SaO2% (BldA) [Mass fraction] 97 % Nato Fisher MD Work Phone: [facility] 08-26-2024 10:59-0500 Systolic blood pressure 167 mm[Hg] Nato Fisher MD Work Phone: [facility] 12-13-2023 09:35-0500 Diastolic blood pressure 74 mm[Hg] Yaw Apple MD Work Phone: [facility] 12-13-2023 09:35-0500 Respiratory rate 16 /min Yaw Apple MD Work Phone: [facility] 12-13-2023 09:35-0500 SaO2% (BldA) [Mass fraction] 100 % Yaw Apple MD Work Phone: [facility] 12-13-2023 09:35-0500 Systolic blood pressure 124 mm[Hg] Yaw Apple MD Work Phone: [facility] 12-13-2023 09:15-0500 Body temperature 96.8 [degF] Yaw Apple MD Work Phone: [facility] 12-13-2023 08:26-0500 Body height 160 cm Yaw Apple MD Work Phone: [facility] 12-13-2023 08:26-0500 Body weight 47.63 kg Yaw Apple MD Work Phone: [facility] 12-13-2023 08:26-0500 Heart rate 71 /min Yaw Apple MD Work Phone: [facility] 09-13-2023 03:54-0500 Body mass index (BMI) [Ratio] 20.7 kg/m2 [facility] 07-10-2023 15:21-0400 Body height 152.[address] Osman See Work Phone: [facility] 07-10-2023 15:21-0400 Body mass index (BMI) [Ratio] 20.2 kg/m2 Dr. Osman See Work Phone: [facility] 07-10-2023 15:21-0400 Body weight 47.[address] Osman See Work Phone: [facility] 07-10-2023 15:21-0400 Diastolic blood pressure 76 mm[Hg] Dr. Osman See Work Phone: [facility] 07-10-2023 15:21-0400 Heart rate 69 /min Dr. Osman See Work Phone: [facility] 07-10-2023 15:21-0400 Respiratory rate 14 /min Dr. Osman See Work Phone: [facility] 07-10-2023 15:21-0400 Systolic blood pressure 114 mm[Hg] Dr. Osman See Work Phone: [facility] 06-13-2023 23:07-0400 Body mass index (BMI) [Ratio] 20.7 kg/m2 Dr. Osman See Work Phone: [facility] 03-14-2023 08:15-0400 Body mass index (BMI) [Ratio] 20.7 kg/m2 [facility] 12-11-2022 22:28-0500 Body mass index (BMI) [Ratio] 20.7 kg/m2 [facility] 11-16-2022 11:01-0500 SaO2% (BldA) [Mass fraction] 99 % Yaw Apple MD Work Phone: [facility] 11-16-2022 10:51-0500 Diastolic blood pressure 78 mm[Hg] Yaw Apple MD Work Phone: [facility] 11-16-2022 10:51-0500 Heart rate 71 /min Yaw Apple MD Work Phone: [facility] 11-16-2022 10:51-0500 Respiratory rate 18 /min Yaw Apple MD Work Phone: [facility] 11-16-2022 10:51-0500 Systolic blood pressure 132 mm[Hg] Yaw Apple MD Work Phone: [facility] 11-16-2022 10:31-0500 Body temperature 98.1 [degF] Yaw Apple MD Work Phone: [facility] 11-16-2022 09:11-0500 Body height 152.4 cm Yaw Apple MD Work Phone: [facility] 11-16-2022 09:11-0500 Body weight 47.17 kg Yaw Apple MD Work Phone: [facility] 09-07-2022 11:30-0500 Body temperature 98.2 [degF] [facility] 09-07-2022 11:30-0500 Diastolic blood pressure 76 mm[Hg] [facility] 09-07-2022 11:30-0500 Heart rate 77 /min [facility] 09-07-2022 11:30-0500 Respiratory rate 14 /min [facility] 09-07-2022 11:30-0500 SaO2% (BldA) [Mass fraction] 97 % [facility] 09-07-2022 11:30-0500 Systolic blood pressure 139 mm[Hg] [facility] 09-07-2022 10:07-0500 Body height 152.4 cm [facility] 09-07-2022 10:07-0500 Body mass index (BMI) [Ratio] 20.5 kg/m2 [facility] 09-07-2022 10:07-0500 Body weight 47.62 kg [facility] 07-13-2022 22:00-0400 Body mass index (BMI) [Ratio] 20.7 kg/m2 [facility] 04-13-2022 07:21-0400 Body mass index (BMI) [Ratio] 20.7 kg/m2 [facility] Work Phone: 03-09-2022 11:45-0400 Diastolic blood pressure 77 mm[Hg] [facility] Work Phone: 03-09-2022 11:45-0400 Heart rate 64 /min [facility] Work Phone: 03-09-2022 11:45-0400 Respiratory rate 16 /min [facility] Work Phone: 03-09-2022 11:45-0400 SaO2% (BldA) [Mass fraction] 99 % [facility] Work Phone: 03-09-2022 11:45-0400 Systolic blood pressure 109 mm[Hg] [facility] Work Phone: 03-09-2022 10:11-0400 Body temperature 97.1 [degF] [facility] Work Phone: 08-23-2021 10:34-0500 Body mass index (BMI) [Ratio] 20.03 kg/m2 Kristen Hubbard Work Phone: OZ-Uwdpmttfca-Amh k [employer] Work Phone: 08-23-2021 10:34-0500 Body surface area Derived from formula 1.44 m2 Kristen Hubbard Work Phone: PN-Eccotpusec-Avr k [employer] Work Phone: 08-23-2021 10:34-0500 Body temperature 97.4 [degF] Kristen Hubbard Work Phone: LZ-Clucyahahc-Hmc k [employer] Work Phone: 08-23-2021 10:34-0500 Body weight 48.08 kg Kristen Hubbard Work Phone: DQ-Qqowdusdui-[facility]op [facility] [place] Work Phone: 08-23-2021 10:34-0500 Diastolic blood pressure 75 mm[Hg] Kristen Hubbard Work Phone: OG-Luxzitmrqr-Ypv k [place] Work Phone: 08-23-2021 10:34-0500 Heart rate 64 /min Kristen Hubbard Work Phone: IJ-Lylhrtfgyf-Vgc k [place] Work Phone: 08-23-2021 10:34-0500 SaO2% (BldA) [Mass fraction] 98 % Kristen Hubbard Work Phone: RW-Ngopdjjodh-Ink k [place] Work Phone: 08-23-2021 10:34-0500 Systolic blood pressure 139 mm[Hg] Kristen Hubbard Work Phone: EC-Hsgmdgdlqe-Qcj k [place] Work Phone: 08-23-2021 10:34-0500 0 1 Kristen Hubbard Work Phone: AU-Awqtiehykh-Adu k [place] Work Phone: Comment on above: [employer] 07-13-2021 21:51-0400 Body mass index (BMI) [Ratio] 20.7 kg/m2 [facility] Work Phone: 02-12-2019 10:02-0400 BMI (Body Mass Index) 20.18 kg/m2 Sadie Padiyar PW-Ehcaalifpy-Dwr her Work Phone: 02-12-2019 10:02-0400 Body Temperature 98 [degF] Sadie Padiyar GJ-Kcjmhlpiqz-Z at her Work Phone: Comment on above: Method: Oral 02-12-2019 10:02-0400 Body weight 48.44 kg Sadie Padiyar ZY-Dmytapnqtc-Zs t her Work Phone: 02-12-2019 10:02-0400 BP Diastolic 84 mm[Hg] Sadie Padiyar OO-Ynpmkiaogr-Zt t her Work Phone: 02-12-2019 10:02-0400 BP Systolic 140 mm[Hg] Sadie Padiyar YW-Rtzbujsubu-Wn t her Work Phone: 02-12-2019 10:02-0400 BSA (Body Surface Area) 1.45 m2 Sadie Padiyar TJ-Lmbywjgwps-Anw her Work Phone: 02-12-2019 10:02-0400 Height 154.94 cm Sadie Padiyar LW-Fmlwigctvh-Aj t her Work Phone: 02-12-2019 10:02-0400 Pulse (Heart Rate) 69 /min Sadie Carrillo MG-Transplant -Mat her Work Phone: 02-12-2019 10:02-0400 Pulse Oximetry 99 % Sadie Carrillo BY-Icftumzvhq-By t her Work Phone: Comment on above: Source: RA Encounters Encounter Date Encounter Type Care Provider Facility Start: 08-14-2025 ambulatory Osman See Facility:[facility] Start: 06-23-[address] Reji montanez MD -[facility] Start: 06-23-2025 End: 06-23-[address] Reji Kohli MD -[facility] Work Phone: Start: 06-23-2025 End: 06-23-[address] Osman See MD Work Phone: -[facility] Start: 06-11-2025 End: 06-11-[address] Mandy Tse MD -[facility] Work Phone: Start: 06-11-2025 End: 06-11-[address] Osman See MD Work Phone: -[facility] Start: 05-14-2025 End: 05-14-[address] Osman See MD Work Phone: -Laboratory Work Phone: Start: 05-14-[address] Osman See MD Work Phone: -Laboratory Work Phone: Start: 05-14-2025 End: 05-14-[address] Osman See MD Work Phone: -Laboratory Start: 04-21-2025 End: 04-21-[address] Osman See MD Work Phone: -Outpatient Breast Imaging Start: 04-21-2025 End: 04-21-2025 Patient encounter procedure Alisha GREENWOOD -[facility] Work Phone: Start: 04-21-2025 End: 04-21-2025 ambulatory Osman See Facility:[facility] Start: 02-12-2025 End: 02-12-[address] Osman See MD Work Phone: -Laboratory Work Phone: Start: 02-12-2025 End: 02-12-[address] Osman See MD Work Phone: [facility] Work Phone: Start: 12-16-[address] Reji montanez MD -[facility] Start: 12-16-2024 End: 12-16-2024 Patient encounter procedure Alisha GREENWOOD -[facility] Work Phone: Start: 12-16-2024 End: 12-16-2024 ambulatory Osman See [place] Start: 12-10-2024 End: 12-10-[address] Mandy Tse MD -[facility] Work Phone: Start: 12-10-2024 End: 12-10-2024 ambulatory Osman Bells [place] Start: 11-23-2024 End: 12-11-[address] Osman See MD Work Phone: -Laboratory Work Phone: Start: 11-23-2024 End: 12-11-2024 ambulatory JENNIFER MUNOZHAM Facility:[facility] Start: 10-30-2024 End: 10-30-2024 Refill Yaw Apple MD Work Phone: [facility] Comment on above: Refill Request Start: 09-28-2024 End: 09-28-2024 ambulatory Osman Bells Facility:[facility] Start: 09-09-2024 End: 09-09-2024 Telephone encounter Yaw Apple MD Work Phone: [facility] Comment on above: Results Start: 08-28-2024 Encounter for other preprocedural examination YAW APPLE [facility] Start: 08-28-2024 ambulatory YAW APPLE Facility:[facility] Start: 08-28-2024 End: 08-28-2024 Preprocedural examination done Yaw Apple MD Work Phone: [facility] Start: 08-28-2024 End: 08-28-2024 Subsequent hospital visit by physician Yaw Apple MD Work Phone: [facility] Comment on above: 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 [K22.70] Start: 08-26-2024 End: 08-26-2024 Office outpatient visit 40 minutes Nato Fisher MD Work Phone: [facility] Comment on above: Aftercare following organ transplant (Primary Dx); Kidney replaced by transplant (HHS-HCC); Hyperparathyroidism (Multi); Hypertension secondary to other renal disorders; Encounter for long-term (current) use of high-risk medication Start: 08-26-2024 End: 08-26-2024 ambulatory KRISTEN Page [facility] Start: 08-17-2024 End: 08-17-2024 Admission to same day surgery center Yaw Apple MD Work Phone: [facility] Start: 08-17-2024 End: 08-17-2024 Chart abstracting Yaw Apple MD Work Phone: [facility] Comment on above: Opened In Error Start: 08-17-2024 End: 08-17-2024 E-mail encounter from caregiver Yaw Apple MD Work Phone: [facility] Start: 08-13-2024 End: 08-13-2024 Orders Only Yaw Apple MD Work Phone: [facility] Comment on above: Encounter for screen ing colonoscopy (Primary Dx) 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 (Primary Dx) Start: 07-15-2024 End: 07-15-2024 Telephone encounter Yaw Apple MD Work Phone: [facility] Comment on above: Future Appointment ( EGD & colonoscopy) Start: 12-13-2023 Encounter for other preprocedural examination YAW APPLE [facility] Start: 12-13-2023 ambulatory YAW APPLE Facility:[facility] Start: 12-13-2023 End: 12-13-2023 Preprocedural examination done Yaw Apple MD Work Phone: [facility] Start: 12-13-2023 End: 12-13-2023 Subsequent hospital visit by physician Yaw Apple MD Work Phone: [facility] Comment on above: 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 [K22.70] Start: 11-20-2023 End: 12-12-2023 ambulatory [facility] Work Phone: Start: 11-20-2023 End: 12-12-2023 Discharged Recurring [facility]-Laboratory Work Phone: Start: 09-17-2023 End: 09-17-[address] Osman See Work Phone: [facility] Work Phone: Start: 09-17-2023 End: 09-17-[address] Osman See Work Phone: [facility]-Physical Therapy Work Phone: Start: 09-10-[address] Osman See Work Phone: [facility] Therapy Work Phone: Start: 08-14-2023 End: 09-12-[address] Osman See Work Phone: [facility] Work Phone: Start: 08-14-2023 End: 09-12-[address] Osman See Work Phone: [facility]-Laboratory Work Phone: Start: 07-29-2023 Non-patient / Non-visit Dr. Osman See Work Phone: [facility] Work Phone: Start: 07-26-2023 Non-patient / Non-visit Dr. Osman See Work Phone: [facility] Start: 07-26-2023 End: 07-26-[address] Osman See Work Phone: [facility] Work Phone: Start: 07-26-2023 End: 07-26-[address] Osman See Work Phone: [facility]-Cardiovascu lar Services Work Phone: Start: 07-24-2023 End: 07-24-2023 ambulatory OSMAN SEE Facility:[facility] Start: 07-24-2023 End: 07-24-2023 ambulatory [facility] Work Phone: [facility] Start: 07-10-2023 End: 07-10-[address] Osman See Work Phone: [facility] Work Phone: Start: 06-11-2023 Non-patient / Non-visit Dr. Osman See Work Phone: [facility] Work Phone: Start: 05-15-2023 End: 05-15-[address] Osman See Work Phone: [facility]-Laboratory Work Phone: Start: 05-15-2023 Registered Recurring [facility] Work Phone: Start: 03-05-2023 End: 03-05-2023 ambulatory [facility] Work Phone: Start: 03-05-2023 End: 03-05-2023 Discharged Recurring [facility]-Occupationa l Therapy Work Phone: Start: 03-05-2023 Registered Recurring [facility] Therapy Start: 02-11-2023 End: 02-11-2023 ambulatory [facility] Work Phone: Start: 02-11-2023 End: 02-11-2023 Discharged Recurring [facility]-Laboratory Start: 11-23-2022 Telephone encounter Yaw Apple MD Work Phone: [facility] Comment on above: Results Start: 11-21-2022 Patient encounter procedure Kristen Hubbard Work Phone: TU-Lhztdzgjhv-Bmmhkr Work Phone: Start: 11-21-[address] Kristen Hubbard F acility: Start: 11-16-2022 End: 11-16-2022 Preprocedural examination done Yaw Apple MD Work Phone: [facility] Start: 11-16-2022 End: 11-16-2022 Subsequent hospital visit by physician Yaw Apple MD Work Phone: [facility] Comment on above: 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 [K22.70] Start: 11-14-2022 End: 11-14-2022 [facility] Work Phone: Start: 11-14-2022 End: 11-14-2022 Discharged Recurring [facility]-Laboratory Start: 10-28-2022 Refill Yaw Aplpe MD Work Phone: [facility] Comment on above: Refill Request Start: 10-23-2022 Orders Only Yaw Apple MD Work Phone: [facility] Comment on above: 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 (Primary Dx) Start: 09-21-2022 End: 09-21-2022 Patient encounter procedure [facility]Laboratory, [facility] Start: 09-13-2022 End: 09-13-2022 ambulatory [facility] Work Phone: Start: 09-13-2022 End: 09-13-2022 Patient encounter procedure [facility]Laboratory Start: 09-07-2022 End: 09-07-2022 Patient encounter procedure [facility]-Medical Out Start: 09-05-[address] Kristen Naidu acility: Start: 08-24-2022 End: 08-24-2022 ambulatory [facility] Work Phone: Start: 08-24-2022 End: 08-24-2022 [facility] Start: 06-14-2022 End: 06-14-2022 ambulatory [facility] Work Phone: Start: 06-14-2022 End: 06-14-2022 [facility] Start: 04-19-2022 End: 04-19-2022 Patient encounter procedure [facility]-Outpatient Bone Densitometry Start: 03-14-2022 End: 03-14-2022 [facility] Start: 03-09-2022 Patient encounter procedure [facility] Start: 02-12-2022 End: 02-12-2022 [facility] Start: 01-08-2022 End: 01-08-2022 Patient encounter procedure [facility]Laboratory Start: 12-12-2021 Patient encounter procedure [facility]Laboratory Start: 11-24-2021 AUDIT Kristen Dejesus angel Work Phone: FA-Rslssmesog-Eyhqrj Work Phone: Start: 11-01-2021 Rx Renewal Kristen Dejesus angel Work Phone: [facility] Work Phone: Start: 09-15-2021 AUDIT Kristen Dejesus angel Work Phone: EI-Ljvmuxsbtc-Vbunug Work Phone: Start: 08-23-2021 Patient encounter procedure Kristen Hubbard Work Phone: [facility]Jyxkpfyngq[facility] [place] Work Phone: Start: 08-26-2019 Patient encounter procedure Sdaie Padiyar SU-Ehewcfobgo-Acrpam Work Phone: Start: 02-12-2019 Patient encounter procedure Sadie Padiyar MA-Stkrtbmjvv-Lvituo Work Phone: Start: 08-20-2018 Patient encounter procedure Sadie Padiyar OA-Nlqkwgdkjm-Dvivle Work Phone: Start: 08-22-2017 Patient encounter procedure Sadie Padiyar UA-Ugrqnpheln-Shjnwm Work Phone: Start: 02-19-2017 Patient encounter procedure Sadie Padiyar YJ-Ikiwrxojva-Wruewe Work Phone: Procedures Date Procedure Procedure Detail Performing Clinician Start: 06-23-[address] Osman See MD Work Phone: Start: 05-14-[address] Osman See MD Work Phone: Start: 05-14-20[address] inorganic phosphate [address] Osman eSe MD Work Phone: Start: 05-14-[address] Osman See MD Work Phone: Comment on above: Target steady state trough concentration forTacrolimus varies based on type of organ transplantimmunosuppressive protocol and other patient specificfactors. Tacrolimus trough concentrations should beinterpreted in conjunction with clinical assessmentsof rejection and tolerability. Values obtained withdifferent assay methods cannot be used interchangeablydue to differences in assay methods and cross-reactivtywith metabolites, nor should correction factors beapplied. Therefore, consistent use of one assay forindividual patients is recommended.Detection Limit = 0.5 ng/mLPerformed by LC-MS/MS technology.Performed at: [address] [id number] Director: Su Iraheta MD, Phone: [phone] Start: 05-14-2025 Vitamin D, 25-hydroxy measurement Dr. Austin See MD Work Phone: Comment on above: Vitamin D StatusDeficiency: <20 ng/mL (5 0nmol/L)Insufficiency: 20-30 ng/mL (50-75 nmol/L)Sufficiency: 30-100 ng/mL (75-250 nmol/L)Toxicity: >100 ng/mL (>250 nmol/L) Start: 04-21-2025 Screening mammography of right breast Dr. Osman See MD Work Phone: Start: 02-12-[address] Osman See MD Work Phone: Start: 02-12-[address] Serum inorganic phosphate measurement Dr[address] Osman See MD Work Phone: Start: 02-12-[address] Osman See MD Work Phone: Comment on above: Target steady state trough concentration forTacrolimus varies based on type of organ transplantimmunosuppressive protocol and other patient specificfactors. Tacrolimus trough concentrations should beinterpreted in conjunction with clinical assessmentsof rejection and tolerability. Values obtained withdifferent assay methods cannot be used interchangeablydue to differences in assay methods and cross-reactivtywith metabolites, nor should correction factors beapplied. Therefore, consistent use of one assay forindividual patients is recommended.Detection Limit = 0.5 ng/mLPerformed by LC-MS/MS technology.Performed at: [address] [id number] Director: Su Iraheta MD, Phone: [phone] Start: 02-12-2025 Vitamin D, 25-hydroxy measurement Dr. Austin See MD Work Phone: Comment on above: Vitamin D StatusDeficiency: <20 ng/mL (5 0nmol/L)Insufficiency: 20-30 ng/mL (50-75 nmol/L)Sufficiency: 30-100 ng/mL (75-250 nmol/L)Toxicity: >100 ng/mL (>250 nmol/L) Start: 12-16-[address] Osman See MD Work Phone: Start: 11-23-2024 Assay of phosphorus inorganic Dr. Osman daniels MD Work Phone: Start: 11-23-2024 Measurement of renal function Dr. Osman daniels MD Work Phone: Comment on above: GFR Calc Start: 11-23-[address] Osman See MD Work Phone: Start: 11-23-[address] Osman See MD Work Phone: Comment on above: Target steady state trough concentration forTacrolimus varies based on type of organ transplantimmunosuppressive protocol and other patient specificfactors. Tacrolimus trough concentrations should beinterpreted in conjunction with clinical assessmentsof rejection and tolerability. Values obtained withdifferent assay methods cannot be used interchangeablydue to differences in assay methods and cross-reactivtywith metabolites, nor should correction factors beapplied. Therefore, consistent use of one assay forindividual patients is recommended.Detection Limit = 0.5 ng/mLPerformed by LC-MS/MS technology Please note reference interval changePerformed at: [address] [id number] Director: Su Iraheta MD, Phone: [phone] Start: 11-23-2024 Vitamin D, 25-hydroxy measurement Dr. Austin See MD Work Phone: Comment on above: Vitamin D 25(OH) Status Range Deficiency <20 ng/mL (50nmol/L) Insufficiency 20 - 30 ng/mL (50 - 75 nmol/L) Sufficiency 30 - 100 ng/mL (75 - 250 nmol/L) Toxicity >100 ng/mL (>250 nmol/L) Start: 09-28-2024 Total iron binding capacity measurement Dr. Osman See MD Work Phone: Start: 06-25-[address] Osman See MD Work Phone: Start: 07-24-2023 Clarassance COVID-19 VACCINE (2022- SEASON) AGE 12+ YR Ahsan Lew MD Work Phone: Start: 04-19-2022 Dual energy X-ray absorptiometry Start: 04-19-2022 Screening mammography Start: 02-05-2019 CBC W Auto Differential panel - Blood Sadie Padiyar Start: 02-05-2019 Drug screen quantitative tacrolimus Sadie Padiyar Start: 02-05-2019 Renal function panel Sadie Padiyar Start: 10-14-2010 History of renal transplant Kidney transplant recipient Yaw Apple MD Work Phone: Comment on above: Right Hernia repair Sadie Padiyar History of renal transplant Kidn ey replaced by transplant Kristen Hubbard Work Phone: Comment on above: Added by Problem List Migration; ; Moved to [facility] Sep 06 2013 4:40PM; History of renal transplant Kidn ey transplant recipient Yaw Apple MD Work Phone: History of renal transplant Kidn ey replaced by transplant ([facility]) Nato Fisher MD Work Phone: Plan of Treatment Date Care Activity Detail Author Start: 03-13-2034 DTaP/Tdap/Td Vaccine s (2 - Td or Tdap) DTaP/Tdap/Td Vaccines (2 - Td or Tdap) [facility] Start: 03-13-2034 Urine microalbumin profile DTaP,Tdap,Td Vaccine (2 - Td or Tdap) [facility] Start: 06-23-2025 [facility] Start: 04-22-2025 MG Breast - right Screening [facility] Start: 10-14-2024 Advance Directive Discussion Advance Directive Discussion [facility] Start: 08-28-2024 End: 08-13-2025 EGD DIAGNOSTIC [facility] Comment on above: Expected: 08/28/2024 , Expires: 08/13/2025 Start: 08-28-2024 End: 08-13-2025 Screening colonoscopy [facility] Work Phone: Comment on above: Expected: 08/28/2024 , Expires: 08/13/2025 Start: 08-28-2024 End: 08-28-2024 Patient encounter procedure [facility] Comment on above: REG 08/28 Start: 06-19-2024 COVID-19 Vaccine ( season) COVID-19 Vaccine () [facility] Start: 06-19-2024 Covid-19 Vaccine () Covid-19 Vaccine () [facility] Start: 06-14-2024 Covid-19 Vaccine () Covid-19 Vaccine () [facility] Start: 06-14-2024 Influenza vaccination Influenz a Vaccine (#1) [facility] Start: 10-14-2023 Advance Directive Discussion Advance Directive Discussion [facility] Start: 10-14-2023 Depression Assessment Depression Ass essment [facility] Start: 09-18-2023 Covid-19 Vaccine () Covid-19 Vaccine () [facility] Start: 08-28-2023 KIDFUVMED, Provider: Edna Kevin, Status: Pen, Time: 10:20 AM ELTONFUVMED, Provider: Edan Kevin, Status: Pen, Time: 10:20 AM [facility]Frqedfmrh[facility]Myif[facility] Work Phone: Start: 06-14-2023 Influenza vaccination Influenz a Vaccine (#1) [facility] Start: 11-16-2022 End: 10-23-2023 EGD DIAGNOSTIC [facility] Work Phone: Comment on above: Expected: 11/16/2022 , Expires: 10/23/2023 1 Occurrences starti ng 11/16/2022 until 11/16/2022 Start: 10-14-2022 ADVANCE DIRECTIVE DISCUSSION ADVANCE DIRECTIVE DISCUSSION [facility] Start: 10-14-2022 DEPRESSION ASSESSMENT DEPRESSION ASS ESSMENT [facility] Start: 09-21-2022 Procedure [facility] Work Phone: Start: 08-24-2022 Procedure [facility] Work Phone: Start: 06-14-2022 Influenza vaccination INFLUENZA (#1) [facility] Start: 02-06-2022 COVID-19 VACCINE (5 - Booster for Pfizer series) COVID-19 VACCINE (5 - Booster for Pfizer series) [facility] Start: 01-17-2022 Diabetes Screening Diabetes Screenin g [facility] Start: 10-24-2021 DIABETES SCREEN DIABETES SCREEN [facility] Start: 10-24-2021 Diabetes Screening Diabetes Screenin g [facility] Start: 10-15-2006 Urine microalbumin profile [facility] Start: 2005 BONE DENSITY BONE DENSITY [facility] Start: 2005 Bone Density Screening Bone De nsity Screening [facility] Start: 2005 Screening for osteoporosis Bone Density Screening [facility] Start: 1958 Anxiety Screening Anxiety Screening [facility] Start: 1958 Depression Screening Depression Scre ening [facility] Start: 1951 Screening for malign ant neoplasm of cervix Cervical Cancer Screening [facility] Start: 1940 Lipid panel Lipid Panel [facility] Start: 1940 Medicare Annual Well ness Visit Medicare Annual Wellness Visit (AWV) [facility] Start: 1940 Screening for osteoporosis Bone Density Scan [facility] Start: 1940 Thyroid stimulating hormone measurement TSH Level [facility] CBC W Auto Different ial panel - Blood [facility] Comprehensive metabo lic 2000 panel - Serum or Plasma [facility] EGD DIAGNOSTIC EGD DIAGNOSTIC Endoscopy Routine 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 12/13/2023 9:11 AM EST [facility] Work Phone: H&P for surgery H&P FOR SURGERY Procedures Routine 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 Ordered: 10/23/2022 [facility] Work Phone: Comment on above: Ordered: 10/23/2022 H&P for surgery H&P FOR SURGERY Procedures Routine 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 Ordered: 08/13/2024 [facility] Work Phone: Comment on above: Ordered: 08/13/2024 Procedure [facility] Work Phone: SURGICAL PATHOLOGY [facility] Work Phone: Comment on above: Release Upon Wilder avelar for 1 Occurrences starting 11/16/2022 SURGICAL PATHOLOGY [facility] Work Phone: Comment on above: Release Upon Orderin g for 1 Occurrences starting 12/13/2023 SURGICAL PATHOLOGY [facility] Work Phone: Comment on above: Release Upon Orderin g for 1 Occurrences starting 08/28/2024 Tacrolimus [Mass/vol ume] in Blood [facility] Tacrolimus [Mass/vol ume] in Blood [facility] Immunizations Immunization Date Immunization Notes Care Provider Fa cility 04-24-2024 Covid (Spikevax) Dr. Osman nolan MD Work Phone: [facility] 03-13-2024 tetanus toxoid, redu mariely diphtheria toxoid, and acellular pertussis vaccine, adsorbed Dr. Osman See MD Work Phone: [facility] 08-20-2023 RSV Adult Recombinan t (Arexvy) Dr. Osman See MD Work Phone: [facility] 07-24-2023 COVID-19 vaccine, ag e 12+ yr, season (Clarassance) Immunization [facility] Work Phone: [facility] Work Phone: 02-25-2023 Covid Moderna Bivale nt Booster Dr. Osman See MD Work Phone: [facility] 02-25-2023 Pneumococcal Vaccine PCV20 (Prevnar 20) Dr. Osman See MD Work Phone: [facility] 06-27-2022 Influenza High-Dose Quadrivalent Dr. Osman See MD Work Phone: [facility] 06-27-2022 influenza virus vaccine, unspecified formulation Immunization [employer] Work Phone: [facility] 06-22-2020 influenza, high dose seasonal, preservative-free Yaw Apple MD Work Phone: [facility] 11-09-2019 zoster vaccine recombinant Yaw Apple MD Work Phone: [facility] 11-08-2019 zoster vaccine recombinant Yaw Apple MD Work Phone: [facility] 08-10-2019 zoster vaccine recombinant Yaw Apple MD Work Phone: [facility] 07-09-2019 Seasonal trivalent influenza vaccine, adjuvanted, preservative free Yaw Apple MD Work Phone: [facility] 07-14-2018 influenza, high dose seasonal, preservative-free Yaw Apple MD Work Phone: [facility] 07-31-2017 influenza, high dose seasonal, preservative-free Yaw Apple MD Work Phone: [facility] 07-10-2016 influenza, high dose seasonal, preservative-free Yaw Apple MD Work Phone: [facility] 07-19-2015 influenza, high dose seasonal, preservative-free Yaw Apple MD Work Phone: [facility] 05-09-2015 pneumococcal conjuga te vaccine, 13 valent Yaw Apple MD Work Phone: [facility] 02-21-2011 pneumococcal polysaccharide vaccine, 23 valent Yaw Apple MD Work Phone: [facility] 07-14-2010 pneumococcal polysaccharide vaccine, 23 valent Yaw Apple MD Work Phone: [facility] 05-03-2008 zoster vaccine, live Yaw Apple MD Work Phone: [facility] 10-14-2006 tetanus and diphther ia toxoids, adsorbed, preservative free, for adult use (2 Lf of tetanus toxoid and 2 Lf of diphtheria toxoid) Yaw Apple MD Work Phone: [facility] 07-14-2003 influenza, injectabl e, quadrivalent, contains preservative Yaw Apple MD Work Phone: [facility] 10-14-2002 pneumococcal polysaccharide vaccine, 23 valent Yaw Apple MD Work Phone: [facility] Payers Date Payer Category Payer Self-pay [id number] 2016 Medicare supplementa l policy (as second payer) [employer] MEDICARE SELECT SUPPLEMENT [id number] 2016 Unknown 2016 Unknown [id number] 2004 Medicare [id number] 2004 Medicare [id number] 1940 Unknown [id number] .[id number] 1940 Unknown [id number] .2.356 1940 Unknown [id number] .[id number] Unknown [id number] .[id number] Unknown [id number] .2.462 Unknown [id number] .2.462 Unknown [id number] .2.462 Unknown [id number] .2.462 Unknown [id number] .2.462 Unknown [id number] .2.462 Unknown [id number] [id number] .2.462 Unknown [id number] [id number] .2.462 Unknown [id number] .2.462 Unknown [id number] .2.462 Social History Date Type Detail Facility Start: 11-10-2021 End: 07-24-2023 Never smoker Never smoker [facility] Start: 01-17-2019 End: 07-10-2023 Tobacco smoking status [email or web address] Unknown if ever smoked [facility] Start: 03-23-2021 None [facility] Start: 03-23-2021 Alone [facility] Start: 03-23-2021 Non-smoker [facility] Start: 1940 Sex Assigned At Female C [facility] Start: 02-21-2011 End: 06-21-2024 Tobacco smoking status NHIS Never smoked tobacco [facility] Start: 02-21-2011 Tobacco use and exposure Smokeless tobacco non-user [facility] Start: 11-10-2021 End: 09-09-2024 Alcohol intake Current drinker of alcohol (finding) [facility] Start: 11-13-2017 Alcohol Comment occasional [facility] Start: 11-16-2022 Alcohol Comment occasional-sina ry couple weeks [facility] Start: 11-16-2022 End: 07-24-2023 Tobacco use panel [facility] National Score (1-100), lower number is lower risk 72 [facility] Start: 11-01-2021 Gender identity Identifies as female gender (finding) [facility] How often to you hav e a drink containing alcohol? Never [facility] Do you feel stress - tense, restless, nervous, or anxious, or unable to sleep at night because your mind is troubled all the time - these days [OSQ] Not at all [facility] Work Phone: (I/We) worried whether (my/our) food would run out before (I/we) got money to buy more. Never true [facility] Work Phone: Start: 1940 [facility] Start: 08-16-2024 End: 08-26-2024 Exposure to SARS-CoV-2 (event) Not sure [facility] Work Phone: NEGATED: Highlighted row - - [facility]utkoxt[facility]Fgmsly Work Phone: Medical Equipment Procedure Code Equipment Code Equipment Origin al Text Equipment Identifier Dates Lumpectomy, breast, after needle localization, with sentinel lymph node excision and Ligation clip, metallic [id number] FDA Start: 06-09-2024 Lumpectomy, breast, after needle localization, with sentinel lymph node excision and Ligation clip, metallic [id number] FDA Start: 06-09-2024 Mesh Bio-A Synth etic 10x7cm Surgical Reinforcement Hernia Repair - [id number] Start: 10-23-2018 Functional Status Date Assessment Result Facility NEGATED: Highlighted row Functional performance Functional status health issues are not documented Disease [facility]-Mqbuldmboo-Isjrr r Work Phone: Mental Status Date Assessment Result Facility 03-09-2022 Cognitive function Level Of Cons ciousness Awake;Alert;Appropriate ;Follows Commands [facility] Work Phone: NEGATED: Highlighted row Cognitive function [Interpretation] Cognitive status health issues are not documented Disease CS-Hdgdqkwkuk-Ejnxe r Work Phone: Clinical Notes 01-12-2009 to 06-23-2025 Note Date & Type Note Facility 06-23-2025 Progress note [facility] 06-23-2025 Progress note Note Date/Time June 23, 2025 10:43am [facility] [address] [place] [address] OFFICE VISIT Date of Service: 06/23/25 1014 MR#: [id number] Acct: [id number] Name: MU LINCOLN Rep #: [id number] : 1940 From: Reji birmingham MD Age/Sex: 84/F Location[place] [facility] Status: Signed HPI Subjective Date of Service 06/23/25 Chief Complaint Breast cancer History of Present Illness 83-year-old female who presented after an abnormal screening mammogram followinga 2-year And screening mammography. 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 Present. Microcalcifications ? Present. Other findings: Intraductal hyperplasia with and without atypia. Skin with no pathologic change. ANTIBODY / CLONE RESULT Block 1 P53 (DO-7) positive, wild type Ki-67 (30-9) positive, 35% CK8 (36ehtyX48) positive CK5-6 (D5 & 1684) negative Calponin-1 (WZ484H) negative P40 (BC28) negative E-Cad (ECH-6) positive MOC-31 (4561) positive MORPHOMETRIC ANALYSIS ER (clone 6F11) 0 % MI (clone 16/1E2) 0% Her-2Neu (clone CB11) 3+ June 09, 2024 left mastectomy with sentinel lymph node biopsy: FROZEN SECTION DIAGNOSIS A. Left axillary sentinel lymph node, biopsy: One out of one lymph node, negative for carcinoma. AM.mr 06/09/2024 MICROSCOPIC DIAGNOSIS A. Left axillary sentinel lymph node, biopsy: One lymph node, negative for metastatic carcinoma. See comment. B. Left breast, mastectomy: Ductal carcinoma in situ. See cancer summary in the comment section. SJ/mr 06/12/2024 COMMENT The lymph node is negative for metastatic carcinoma on multiple H & E levels andimmunohistochemical stains for cytokeratins ([id number]). B. Cancer summary: Specimen: Procedure: Total mastectomy Specimen laterality: Left Tumor: Tumor site: Inferior portion, deep central lateral aspect as per clinical information. Histologic type: Ductal carcinoma in situ Size (extent of DCIS): 1.5 x 0.5cm (measures microscopically), tumor is present adjacent to the previous biopsy site Number of blocks with DCIS: 1 Number of blocks examined: 12 Architectural pattern: Comedo and cribriform Nuclear Grade: Grade 3 (high) Necrosis: Present, central (expansive comedo ?necrosis?) Microcalcifications: Present in DCIS and non-neoplastic tissue Margins: The tumor is 3.0cm from closest inferior margin Regional lymph node status: Number of lymph node examined: 1 Number of sentinel lymph node examined: 1 Number of lymph node with macrometasteses, micrometasteses and isolated tumor cells:0 Distal metastases: Not applicable Additional findings: - Focal intraductal hyperplasia with atypia - Changes consistent with previous biopsy site. Ancillary studies: Previously performed on [id number] and [id number] ER- negative (0) MI- negative (0) Her2 pooja- positive (3) Ki67- positive, 35% Clinical information: Please make reference to previous specimen [id number] left breast, stereotactic core biopsy with diagnosis of ductal carcinoma in situ. Pathology staging: pTis (DCIS) pN0(sn) pMx [facility] Medical History Screening for breast cancer Ductal carcinoma in situ (DCIS) of left breast Cancer Post-menopausal Alcohol use Thyroid disease Arthritis Low iron Anemia History of diverticulitis Non-smoker History of atrial fibrillation History of echocardiogram Cardiology follow-up encounter GERD (gastroesophageal reflux disease) Blepharochalasis Metatarsalgia of right foot Hiatal hernia Acute insomnia History of colon polyps Diverticulosis of colon Immunosuppression due to drug therapy Osteoporosis Renal transplant disorder Hypothyroidism Barretts esophagus Surgical History S/P left mastectomy History of Petra fundoplication Hx of left cataract extraction Hx of right cataract extraction Hx of esophagogastroduodenoscopy Hx of colonoscopy Hx of hernia repair Hx of kidney transplant Hx of kidney transplant Arteriovenous fistula removed (2012) H/O parathyroidectomy (2012) Kidney transplanted (2010) Hx of tonsillectomy (1983) History of hysterectomy (1989) Family History Father Non-Hodgkin lymphoma Brother History of esophageal cancer Brother Diabetes CAD (coronary artery disease) Obesity Cirrhosis from fatty liver Kidney disease Son Non-Hodgkin lymphoma Social History Smoking Status: Never smoker alcohol intake: never substance use type: does not use ROS Constitutional Constitutional: Reports systems reviewed and no addt'l complaints, except as documented; Denies fatigue, fever(s) or weight loss Eyes Eyes: Reports systems reviewed and no addt'l complaints, except as documented ENT HEENT: Reports systems reviewed and no addt'l complaints, except as documented Cardiovascular Cardiovascular: Reports systems reviewed and no addt'l complaints, except as documented; Denies chest pain at rest or edema Respiratory/Chest Respiratory/Chest: Reports systems reviewed and no addt'l complaints, except as documented; Denies cough, dyspnea or hemoptysis Gastrointestinal Gastrointestinal: Reports systems reviewed and no addt'l complaints, except as documented and other Details: Recovered from a bout of bowel obstruction with conservative management June 212023 ; Denies abdominal pain, hematochezia, melena or nausea Genitourinary Genitourinary: Reports systems reviewed and no addt'l complaints, except as documented; Denies hematuria Musculoskeletal Musculoskeletal: Reports systems reviewed and no addt'l complaints, except as documented; Denies back pain Integumentary Integumentary: Reports systems reviewed and no addt'l complaints, except as documented; Denies bleeding lesions or new lesions Neurologic Neurologic: Reports systems reviewed and no addt'l complaints, except as documented; Denies focal weakness or paresthesias Psychiatric Psychiatric: Reports systems reviewed and no addt'l complaints, except as documented Endocrine Endocrinology: Reports systems reviewed and no addt'l complaints, except as documented Hematologic/Lymphatic Hematologic/Lymphatic: Reports systems reviewed and no addt'l complaints, exceptas documented; Denies easy bleeding Allergic/Immunologic Allergic/Immunologic: Reports systems reviewed and no addt'l complaints, except as documented Intake Vital Signs 12/16/24 11:18 06/23/25 10:15 06/23/25 10:34 Height 4 ft 11 in 4 ft 11 in 4 ft 11 in Weight: 47.684 kg BMI 21.2 BP 159/70 H Blood Pressure Location Rt brachial Position Sitting Respiration 18 Pulse 61 Pulse Source Monitor Temp 99.0 F Temperature Source Temporal Artery Pulse Oximetry (%) 97 Oxygen Delivery Method room air Intake Is patient in pain?: No Allergies No Known Allergies Allergy (Verified 06/23/25 10:32) Medications ?Medication ?Instructions ?Recorded ?Confirmed ?Type alprazolam 0.25 mg tablet 0.125 mg PO QHS PRN PRN Inso mnia 01/17/19 06/23/25 History levothyroxine 75 mcg tablet 75 mcg PO DAILY 01/17/19 0 06/23/25 History tacrolimus 1 mg capsule, 2 mg PO BID 01/17/19 5 History immediate-release (Prograf) cholecalciferol (vitamin D3) 25 25 mcg PO DAILY 06/23/25 History mcg (1,000 unit) tablet denosumab 60 mg/mL subcutaneous 60 mg subcut [id number] 06/11/23 06/23/25 History syringe (Prolia) magnesium oxide 250 mg PO QHS supplement 06/23/25 History mycophenolate mofetil 250 mg 500 mg PO BID 07/10/23 History capsule famotidine 20 mg tablet 20 mg PO BID 05/29/24 History lisinopril 5 mg tablet 5 mg PO DAILY 05/29/2406/23 History vitamins A,C,D-erfv-vrpcky 4,296 1 cap PO BID 07/13/24 06/23/25 History mcg-226 mg-90 mg capsule (PreserVision AREDS) Have you fallen in the past year?: No Central Venous Access Central Venous Access: No CBC, CMP June 23, 2025 reviewed in EMR [facility] Imaging Services [address], [place] [address] SCREEN MAMM (CAD) W/CECILIA UNI R MR#: [id number] Acct: [id number] Name: MU LINCOLN Rep #: [id number] : 1940 F 84 From: Snehal Morgan MD PCP: Dr. Osman See MD Status: REG CLI Study: SCREEN MAMM (CAD) W/CECILIA UNI R Date of Exam: 04/21/25 Exam# [id number] Ordering Dr: Alisha Abdalla EXTRAS CASTING DIRECTOR EXTRAS CASTING DIRECTOR-C EXAM: SCREEN MAMM (CAD) W/CECILIA UNI R DATE: 04/21/2025 CLINICAL HISTORY: F, Age 84 y/o , SCREENING FOR BREAST CANCER TECHNIQUE: SCREEN MAMM (CAD) W/CECILIA UNI R COMPARISON: Prior exam(s) dated 04/21/2024, 04/19/2022. FINDINGS: TISSUE DENSITY: The breasts are heterogeneously dense, which may obscure small masses. The mammogram demonstrates that the patient has dense breasts. Supplemental screening with whole breast ultrasound or MRI may be considered for further evaluation. Unilateral Right Breast Mammographic Findings: No significant masses, calcifications or other abnormalities are identified. BI/SCREEN MAMM (CAD) W/CECILIA UNI R IMPRESSION: There is no mammographic evidence of malignancy. OVERALL FINAL ASSESSMENT BI-RADS 1: NEGATIVE. RECOMMEND ANNUAL MAMMOGRAPHIC SCREENING. RECOMMENDATION: Routine annual follow-up in 1 Year A letter with findings and recommendations will be mailed to the patient. Reading Location: [facility] Exam Physical Exam Narrative ECOG 0-1 Const alert and oriented x3 General Appearance: cooperative, comfortable and frail Coding Level of Care Code Off vis,est,level 3 Exam Problem Focused Diagnoses Ductal carcinoma in situ (DCIS) of left breast D05.12 Assessment and Plan Assessment and Plan (1) Ductal carcinoma in situ (DCIS) of left breast: Status: Acute Orders: Orders CBC W/Diff, Automated Today D05.12 - Intraductal carcinoma in situ of left breast Comprehensive Metabolic Profil Today D05.12 - Intraductal carcinoma in situ of left breast Plan 84-year-old female with stage 0 DCIS of the left breast status post mastectomy and sentinel lymph node biopsy June 09, 2024 with adequate negative surgical margin. Cancer is ER negative, MI negative. The HER2 positive is more frequently encountered in DCIS than invasive cancers and is of no clinical utility at this time. Chronic comorbid conditions: Status post kidney transplant on chronic immunosuppression, Hiatus hernia with GERD, diverticular disease of the colon, osteoporosis, hypothyroidism. Plan: 1-surveillance with annual mammography. Impression and plan discussed with patient Reji Kohli MD Automotive Parts Advisor, [facility] Divisions of Medical Oncology & Hematology Department of Internal Medicine [place] [phone] This note was generated using a voice recognition system software. Although itwas reviewed by the author prior to finalization, it may still contain incorrectwords, spelling, and punctuation that were not noted when reviewing prior to saving. If a clinically significant typo or inaccurately typed phrase is noted, please notify the author. Clinical Quality Measures Falls Risk Screening/Assistive Devices Have you fallen in the past year?: No 06/23/25 1043 <Electronically signed by Reji godoy MD> Date _ Reji Kohli MD Cosigner Signature: Date (if applicable) CC: Dr. Osman See MD ~ [facility] Work Phone: 1(345) 368-294408-29-2025 Evaluation note* Diagnosis Onset Date Resolution Status Admit Date Ductal carcinoma in situ (DCIS) of left breast acute May 9:26am S/P left mastectomy acute Augus t 2024 9:26am Ductal carcinoma in situ (DCIS) of left breast acute June 23, 2025 9:37am [facility] Work Phone: 1(559) 962-438802-27-2025 Evaluation note* Diagnosis Onset Date Resolution Status Admit Date Ductal carcinoma in situ (DCIS) of left breast acute November 152024 2:06pm S/P left mastectomy acute Febru cristian 2024 2:06pm Anemia acute December 16 10:38am Ductal carcinoma in situ (DCIS) of left breast acute December 16, 2024 10:38am [facility] Work Phone: [phone] Telephone encounter Note* Telephone Encounter - Yong Mcdonald RN - 09/09/2024 2:15 PM EST ----- Message from Yaw Apple MD sent at 09/04/2024 2:32 PM EST ----- Please call and tell patient that her EGD showed Corral's esophagus. No dysplasia. Repeat EGD 2 to3 years Thank you I called patient and left a message with her results and I left my contact info. Recall scheduled in [facility] for 2025. Yong Mcdonald RN Patient called back and said she had already checked her results and she has no questions. Mu did ask if I could fax the colonoscopy results to Dr. iSegel in [place]. I agreed, and received a receipt that the faxed report was received. [facility]11-27-[facility]24 Miscellaneous Notes* Telephone Encounter - Yong Mcdonald RN - 09/09/2024 2:15 PM EST ----- Message from Yaw Apple MD sent at 09/04/2024 2:32 PM EST ----- Please call and tell patient that her EGD showed Corral's esophagus. No dysplasia. Repeat EGD 2 to3 years Thank you I called patient and left a message with her results and I left my contact info. Recall scheduled in [facility] for 2025. Yong Mcdonald RN Patient called back and said she had already checked her results and she has no questions. Mu did ask if I could fax the colonoscopy results to Dr. Siegel in [place]. I agreed, and received a receipt that the faxed report was received. documented in this encounterWhite Hospital11-15-[facility] History and physical note * Sherman Sanabria APRN.SHAHAB - 08/28/2024 11:30 AM EST HISTORY AND PHYSICAL EXAMINATION SERVICE DATE: 08/28/2024 SERVICE TIME: 10:53 AM PRIMARY CARE PHYSICIAN: Osman See MD REASON FOR VISIT: Mu Lincoln is a 83 year old female who is scheduled for Colonoscopy at the request of Dr. Yaw Apple for routine H&P. The reason for this visit is to perform a comprehensive review of the patient's past medical history, assess their current health status and obtain any additional testing required based on anesthesia guidelines. We will also identify any potential anesthesia problems or contraindications to the planned procedure. 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 Patient is here for routine colonoscopy and evaluation of corral's esophagus. Patient has h/o corral's esophagus, had EGD last in 12/2023. Also had surgery for hiatal hernia repair about 5-6 years ago. She reports reflux disease is well controlled with Pepcid 20mg BID. Patient denies any N/V, diarrhea or constipation. Denies any abdominalpain. Denies any melena or hematochezia. Patient reports father had h/o NHL, brother had h/o esophageal cancer. Patient agreed to planned procedure. METS: Climb a flight of stairs or walk up a hill (5.50 METs) Patient denies any CP/SOB with above activity. 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) Anemia, unspecified 12/18/2005 Corral's esophagus determined by biopsy Benign neoplasm of colon 10/14/2001 by colonoscopy Chronic kidney disease (CKD) transplant 2010 Diverticulosis of colon (without mention of hemorrhage) Esophageal reflux Generalized osteoarthrosis, unspecified site hands, but no frequent nsaids GERD (gastroesophageal reflux disease) Hemorrhage of rectum and anus Hiatal hernia with gastroesophageal reflux Internal hemorrhoids without mention of complication Osteoporosis Pure hypercholesterolemia due to CKD Unspecified hypothyroidism PAST SURGICAL HISTORY Procedure Laterality Date ARTERIOVENOUS ANASTOMOSIS OPEN DIRECT Left 02/19/2011 ; PARATHYROIDECTOMY/EXPL PARATHYRD 04/2013 COLONOSCOPY FLX DX W/COLLJ SPEC WHEN PFRMD 12/26/2000 Colonoscopy [facility] COLONOSCOPY FLX DX W/COLLJ SPEC WHEN PFRMD 07/22/2006 COLONOSCOPY FLX DX W/COLLJ SPEC WHEN PFRMD 09/10/2017 Colonoscopy COLONOSCOPY W/BIOPSY SINGLE/MULTIPLE 08/30/2009 right and left sided diverticulosis, 10cm mucosal irritation (prolapse) COLSC FLX W/RMVL OF TUMOR POLYP LESION SNARE TQ 12/18/2005 EGD TRANSORAL BIOPSY SINGLE/MULTIPLE 08/07/2017 Corral's without dysplasia EGD TRANSORAL BIOPSY SINGLE/MULTIPLE 03/05/2018 Corral's without dysplasia EGD TRANSORAL BIOPSY SINGLE/MULTIPLE 03/13/2019 Corral's without dysplasia; Dr. Apple EGD TRANSORAL BIOPSY SINGLE/MULTIPLE 09/16/2019 Corral's without dysplasia; Dr. Apple EGD WITH BIOPSY(S) 11/03/2021 Corral's without dyplasia; Dr. Apple ESOPHAGEAL MOTILITY STUDY W/INTERP&RPT 03/05/2018 ESOPHAGOSCOPY FLEX TRANSORAL LESION ABLATION 12/14/2016 ESOPHAGOSCOPY FLEX TRANSORAL LESION ABLATION 10/22/2016 ESOPHAGOSCOPY FLEX TRANSORAL LESION ABLATION 03/21/2017 ESOPHAGOSCOPY FLEX TRANSORAL LESION ABLATION 05/08/2017 ESOPHAGOSCOPY FLEX TRANSORAL LESION ABLATION 11/13/2017 ESOPHAGOSCOPY FLEX TRANSORAL LESION ABLATION 12/25/2017 ESOPHAGOSCOPY FLEX TRANSORAL LESION ABLATION 05/15/2019 #1; Dr. Apple ESOPHAGOSCOPY FLEX TRANSORAL LESION ABLATION 07/22/[address] #[address] 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 [facility] LAP RPR PARAESPHGL HRNA INCL FUNDPLSTY W/MESH 10/23/2018 Dr. Apple PAST SURGICAL HISTORY OF Left 07/2005 fistula put in arm PAST SURGICAL HISTORY OF 07/2013 removal of fistula PAST SURGICAL HISTORY OF 01/2009 failed kidney transplant REPAIR INCISIONAL HERNIA 10/2011 at renal transplant site TONSILLECTOMY PRIMARY/SECONDARY AGE 12/> at age 40 TOTAL ABDOMINAL HYSTERECT W/WO RMVL TUBE OVARY 1989 with unilateral oophorectomy FAMILY HISTORY Problem Relation Age of Onset Cancer Father non-Hodgkin's lymphoma Heart Brother arrythmia Cancer Son Hodgkins; None Mother Cancer Brother cancer of esophagus None Brother Cancer Other gastrointestinal Cancer Paternal Grandfather gastrointestinal Colon Cancer No Family History SOCIAL HISTORY: Social History Tobacco Use Smoking status: Never Smokeless tobacco: Never Vaping Use Vaping status: Never Used Substance Use Topics Alcohol use: Yes Alcohol/week: 5.0 standard drinks of alcohol Types: 5 Standard drinks or equivalent per week Comment: occasional-every couple weeks Drug use: No Prior to Admission medications as of 08/28/24 1114 Medication Sig Last Dose Taking famotidine (PEPCID) 20 mg tablet take 1 tablet by mouth twice a day before meals 08/27/2024 Yes cinacalcet (SENSIPAR) 30 mg tablet Take 30 mg by mouth once daily. 08/27/2024 Yes Biotin 10,000 mcg cap Take by mouth once daily. 08/27/2024 Yes alprazolam (XANAX ORAL) Take 0.25 mg by mouth daily at bedtime. 08/27/2024 Yes lisinopril (ZESTRIL) 5 mg tablet Take 5 mg by mouth once daily. 08/27/2024 Yes Magnesium Hydroxide 400 mg (170 mg) chew Take 250 Each by mouth daily at bedtime. 08/27/2024 Yes mycophenolate Mofetil (CELLCEPT) 500 mg tablet Take 500 mg by mouth twice daily. 08/28/2024 Yes tacrolimus IR (PROGRAF) 1 mg capsule 1 mg twice daily. 08/28/2024 Yes Cholecalciferol, Vitamin D3, 3,000 unit tab Take 1,000 Units by mouth once daily. 08/27/2024 Yes LEVOTHYROXINE 75 MCG TAB Take one(1) tablet daily. 08/28/2024 Yes Vit A,C,J-Iumd-Kxqojm (PRESERVISION AREDS) 14,320-226-200 xxzj-os-dhys cap Take by mouth. denosumab (PROLIA) 60 mg/mL Inject 60 mg subcutaneously one time only. Every 6 months Lactobac no.41/Bifidobact no.7 (PROBIOTIC-10 ORAL) Take by mouth. No medication comments found. ALLERGIES No Known Allergies REVIEW OF SYSTEMS: PAIN ASSESSMENT: Pain Pain Level: 0 Pain Assessment: Assessment Tool: Verbal (Numeric Rating or Visual Analog Scale) General: Denies fever, chills, and unexpected weight change. Neuro: Denies dizziness and headaches. Respiratory: No history of current cough or dyspnea, or pneumonia in the past 6 weeks. No history of respiratory/pulmonary symptoms or problems. No history of current cough or dyspnea, or pneumonia in the past 6 weeks. Cardiovascular: Positive for: Hypertension No history of angina, CHF, [place], cardiac surgery or stents. Denies chest pain or palpations. GI: See HPI. : + CKD, h/o kidney transplant. Endocrine: No history of diabetes, + hypothyroid. Hematology: Denies history of bleeding or clotting disorder. No known autoimmune disorders. Psych: Denies anxiety/depression. Musculoskeletal: + osteoporosis on prolia. Skin: Denies open sores and rashes. Objective PHYSICAL EXAM: VITALS: BP 125/76 Pulse 74 Temp (Src) 97.7 (Temporal Artery) Resp 16 Ht 4' 11 (1.50m) Wt 100 lb (45.4kg) SpO2 99% BMI 20.19 kg/(m^2). O2 Therapy: Room Air General: NAD. Cooperative. Skin: Skin is warm, no rashes, and no open sores. HEENT: Normocephalic. Cardiovascular: Normal S1 & S2. No murmur. Lungs: CTA Bilaterally. No respiratory distress. Abdomen: Soft. Pos BS x4quad Extremities: No edema. Neurological: Alert and oriented [...] range. ABSCREEN No results within date range. No results found for: HBA1C Assessment/Plan 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 [K22.70] Encounter for screening colonoscopy [Z12.11] Patient has the following medical conditions which may affect henry-operative course Problem List Items Addressed This Visit Cardiovascular Essential (primary) hypertension Gastrointestinal 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 Current Assessment & Plan EGD today Controlled with no reflux issue, take pepcid 20mg BID Relevant Orders EGD DIAGNOSTIC Encounter for screening colonoscopy Current Assessment & Plan Colonoscopy today Relevant Orders COLONOSCOPY SCREENING Nephrology Chronic kidney disease (CKD) Current Assessment & Plan H/o renal transplant 02/2011 On tacrolimus, Cellcept No recent lab work in [employer]. Patient follows nephrology, reports labs has been stable On lisinopril 5mg daily for kidney, no BP issue, BP well controlled today 125/76 Endocrinology Hypothyroidism Current Assessment & Plan On levothyroxine 75mcg Follow PCP Other Preop examination - Primary Current Assessment & Plan See note for medical conditions which may affect henry-operative course addressed in visit today. PLAN Planned Procedure: EGD and colonoscopy The Following Tests/Procedures Have Been Initiated: IV start and Maintenance fluid for the procedure. ANESTHESIA FINDINGS: Significant Anesthesia Considerations: None Planned Anesthetic: MAC Instructions Given to Patient: Patient given verbal preop instructions and voices comprehension and compliance. I spent a total of 20 minutes on the date of the service which included preparing to see the patient, [id number] patient care, completing clinical documentation, obtaining and/or reviewing separately obtained history, and performing a medically appropriate examination. SIGNATURE: Sherman Sanabria APRN.CNP PATIENT NAME: Mu Lincoln DATE: August 28, 2024 TIME: 10:52 AM PAGER/CONTACT #: [facility] History and physical note* Sherman Sanabria APRN.CNP - 08/28/2024 11:30 AM EST HISTORY AND PHYSICAL EXAMINATION SERVICE DATE: 08/28/2024 SERVICE TIME: 10:53 AM PRIMARY CARE PHYSICIAN: Osman See MD REASON FOR VISIT: Mu Lincoln is a 83 year old female who is scheduled for Colonoscopy at the request of Dr. Yaw Apple for routine H&P. The reason for this visit is to perform a comprehensive review of the patient's past medical history, assess their current health status and obtain any additional testing required based on anesthesia guidelines. We will also identify any potential anesthesia problems or contraindications to the planned procedure. 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 Patient is here for routine colonoscopy and evaluation of corral's esophagus. Patient has h/o corral's esophagus, had EGD last in 12/2023. Also had surgery for hiatal hernia repair about 5-6 years ago. She reports reflux disease is well controlled with Pepcid 20mg BID. Patient denies any N/V, diarrhea or constipation. Denies any abdominalpain. Denies any melena or hematochezia. Patient reports father had h/o NHL, brother had h/o esophageal cancer. Patient agreed to planned procedure. METS: Climb a flight of stairs or walk up a hill (5.50 METs) Patient denies any CP/SOB with above activity. 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) Anemia, unspecified 12/18/2005 Corral's esophagus determined by biopsy Benign neoplasm of colon 10/14/2001 by colonoscopy Chronic kidney disease (CKD) transplant 2010 Diverticulosis of colon (without mention of hemorrhage) Esophageal reflux Generalized osteoarthrosis, unspecified site hands, but no frequent nsaids GERD (gastroesophageal reflux disease) Hemorrhage of rectum and anus Hiatal hernia with gastroesophageal reflux Internal hemorrhoids without mention of complication Osteoporosis Pure hypercholesterolemia due to CKD Unspecified hypothyroidism PAST SURGICAL HISTORY Procedure Laterality Date ARTERIOVENOUS ANASTOMOSIS OPEN DIRECT Left 02/19/2011 ; PARATHYROIDECTOMY/EXPL PARATHYRD 04/2013 COLONOSCOPY FLX DX W/COLLJ SPEC WHEN PFRMD 12/26/2000 Colonoscopy [facility] COLONOSCOPY FLX DX W/COLLJ SPEC WHEN PFRMD 07/22/2006 COLONOSCOPY FLX DX W/COLLJ SPEC WHEN PFRMD 09/10/2017 Colonoscopy COLONOSCOPY W/BIOPSY SINGLE/MULTIPLE 08/30/2009 right and left sided diverticulosis, 10cm mucosal irritation (prolapse) COLSC FLX W/RMVL OF TUMOR POLYP LESION SNARE TQ 12/18/2005 EGD TRANSORAL BIOPSY SINGLE/MULTIPLE 08/07/2017 Corral's without dysplasia EGD TRANSORAL BIOPSY SINGLE/MULTIPLE 03/05/2018 Corral's without dysplasia EGD TRANSORAL BIOPSY SINGLE/MULTIPLE 03/13/2019 Corral's without dysplasia; Dr. Apple EGD TRANSORAL BIOPSY SINGLE/MULTIPLE 09/16/2019 Corral's without dysplasia; Dr. Apple EGD WITH BIOPSY(S) 11/03/2021 Corral's without dyplasia; Dr. Apple ESOPHAGEAL MOTILITY STUDY W/INTERP&RPT 03/05/2018 ESOPHAGOSCOPY FLEX TRANSORAL LESION ABLATION 12/14/2016 ESOPHAGOSCOPY FLEX TRANSORAL LESION ABLATION 10/22/2016 ESOPHAGOSCOPY FLEX TRANSORAL LESION ABLATION 03/21/2017 ESOPHAGOSCOPY FLEX TRANSORAL LESION ABLATION 05/08/2017 ESOPHAGOSCOPY FLEX TRANSORAL LESION ABLATION 11/13/2017 ESOPHAGOSCOPY FLEX TRANSORAL LESION ABLATION 12/25/2017 ESOPHAGOSCOPY FLEX TRANSORAL LESION ABLATION 05/15/2019 #1; Dr. Apple ESOPHAGOSCOPY FLEX TRANSORAL LESION ABLATION 07/22/2019 #[address] 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 [facility] LAPS RPR PARAESPHGL HRNA INCL FUNDPLSTY W/MESH 10/23/2018 Dr. Apple PAST SURGICAL HISTORY OF Left 07/2005 fistula put in arm PAST SURGICAL HISTORY OF 07/2013 removal of fistula PAST SURGICAL HISTORY OF 01/2009 failed kidney transplant REPAIR INCISIONAL HERNIA 10/2011 at renal transplant site TONSILLECTOMY PRIMARY/SECONDARY AGE 12/> at age 40 TOTAL ABDOMINAL HYSTERECT W/WO RMVL TUBE OVARY 1989 with unilateral oophorectomy FAMILY HISTORY Problem Relation Age of Onset Cancer Father non-Hodgkin's lymphoma Heart Brother arrythmia Cancer Son Hodgkins; None Mother Cancer Brother cancer of esophagus None Brother Cancer Other gastrointestinal Cancer Paternal Grandfather gastrointestinal Colon Cancer No Family History SOCIAL HISTORY: Social History Tobacco Use Smoking status: Never Smokeless tobacco: Never Vaping Use Vaping status: Never Used Substance Use Topics Alcohol use: Yes Alcohol/week: 5.0 standard drinks of alcohol Types: 5 Standard drinks or equivalent per week Comment: occasional-every couple weeks Drug use: No Prior to Admission medications as of 08/28/24 1114 Medication Sig Last Dose Taking famotidine (PEPCID) 20 mg tablet take 1 tablet by mouth twice a day before meals 08/27/2024 Yes cinacalcet (SENSIPAR) 30 mg tablet Take 30 mg by mouth once daily. 08/27/2024 Yes Biotin 10,000 mcg cap Take by mouth once daily. 08/27/2024 Yes alprazolam (XANAX ORAL) Take 0.25 mg by mouth daily at bedtime. 08/27/2024 Yes lisinopril (ZESTRIL) 5 mg tablet Take 5 mg by mouth once daily. 08/27/2024 Yes Magnesium Hydroxide 400 mg (170 mg) chew Take 250 Each by mouth daily at bedtime. 08/27/2024 Yes mycophenolate Mofetil (CELLCEPT) 500 mg tablet Take 500 mg by mouth twice daily. 08/28/2024 Yes tacrolimus IR (PROGRAF) 1 mg capsule 1 mg twice daily. 08/28/2024 Yes Cholecalciferol, Vitamin D3, 3,000 unit tab Take 1,000 Units by mouth once daily. 08/27/2024 Yes LEVOTHYROXINE 75 MCG TAB Take one(1) tablet daily. 08/28/2024 Yes Vit A,C,M-Agdq-Amujgq (PRESERVISION AREDS) 14,320-226-200 bfit-zl-jimv cap Take by mouth. denosumab (PROLIA) 60 mg/mL Inject 60 mg subcutaneously one time only. Every 6 months Lactobac no.41/Bifidobact no.7 (PROBIOTIC-10 ORAL) Take by mouth. No medication comments found. ALLERGIES No Known Allergies REVIEW OF SYSTEMS: PAIN ASSESSMENT: Pain Pain Level: 0 Pain Assessment: Assessment Tool: Verbal (Numeric Rating or Visual Analog Scale) General: Denies fever, chills, and unexpected weight change. Neuro: Denies dizziness and headaches. Respiratory: No history of current cough or dyspnea, or pneumonia in the past 6 weeks. No history of respiratory/pulmonary symptoms or problems. No history of current cough or dyspnea, or pneumonia in the past 6 weeks. Cardiovascular: Positive for: Hypertension No history of angina, CHF, [place], cardiac surgery or stents. Denies chest pain or palpations. GI: See HPI. : + CKD, h/o kidney transplant. Endocrine: No history of diabetes, + hypothyroid. Hematology: Denies history of bleeding or clotting disorder. No known autoimmune disorders. Psych: Denies anxiety/depression. Musculoskeletal: + osteoporosis on prolia. Skin: Denies open sores and rashes. Objective PHYSICAL EXAM: VITALS: BP 125/76 Pulse 74 Temp (Src) 97.7 (Temporal Artery) Resp 16 Ht 4' 11 (1.50m) Wt 100 lb (45.4kg) SpO2 99% BMI 20.19 kg/(m^2). O2 Therapy: Room Air General: NAD. Cooperative. Skin: Skin is warm, no rashes, and no open sores. HEENT: Normocephalic. Cardiovascular: Normal S1 & S2. No murmur. Lungs: CTA Bilaterally. No respiratory distress. Abdomen: Soft. Pos BS x4quad Extremities: No edema. Neurological: Alert and oriented [...] range. ABSCREEN No results within date range. No results found for: HBA1C Assessment/Plan 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 [K22.70] Encounter for screening colonoscopy [Z12.11] Patient has the following medical conditions which may affect henry-operative course Problem List Items Addressed This Visit Cardiovascular Essential (primary) hypertension Gastrointestinal 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 Current Assessment & Plan EGD today Controlled with no reflux issue, take pepcid 20mg BID Relevant Orders EGD DIAGNOSTIC Encounter for screening colonoscopy Current Assessment & Plan Colonoscopy today Relevant Orders COLONOSCOPY SCREENING Nephrology Chronic kidney disease (CKD) Current Assessment & Plan H/o renal transplant 02/2011 On tacrolimus, Cellcept No recent lab work in [employer]. Patient follows nephrology, reports labs has been stable On lisinopril 5mg daily for kidney, no BP issue, BP well controlled today 125/76 Endocrinology Hypothyroidism Current Assessment & Plan On levothyroxine 75mcg Follow PCP Other Preop examination - Primary Current Assessment & Plan See note for medical conditions which may affect henry-operative course addressed in visit today. PLAN Planned Procedure: EGD and colonoscopy The Following Tests/Procedures Have Been Initiated: IV start and Maintenance fluid for the procedure. ANESTHESIA FINDINGS: Significant Anesthesia Considerations: None Planned Anesthetic: MAC Instructions Given to Patient: Patient given verbal preop instructions and voices comprehension and compliance. I spent a total of 20 minutes on the date of the service which included preparing to see the patient, [id number] patient care, completing clinical documentation, obtaining and/or reviewing separately obtained history, and performing a medically appropriate examination. SIGNATURE: Sherman Sanabria APRN.CNP PATIENT NAME: Mu Lincoln DATE: August 28, 2024 TIME: 10:52 AM PAGER/CONTACT #: documented in this encounterWhite Hospital11-15-[facility] Surgery Surgical operation note* Operative Report - Yaw Apple MD - 08/28/2024 11:30 AM EST OPERATIVE/PROCEDURE REPORT LOG ID: [id number] SURGERY/PROCEDURE DATE: 08/28/2024 INCISION/PROCEDURE START TIME: INCISION CLOSE/PROCEDURE END TIME: 12:24 PM SURGEON(S)/PROCEDURALIST(S) AND WAREHOUSE RECEIVING CLERK(S): Yaw Apple MD - Proceduralist Ethan Ramírez, SURGERY/PROCEDURE(S): EGD with biopsy Colonoscopy ANESTHESIA: Monitored Anesthesia Care SURGERY/PROCEDURE DETAILS: Patient is a 83-year-old female with a history of Corral's esophagus which is a long segment presents today for surveillance and need for screening colonoscopy. The risks,and complications of the procedure were reviewed with the patient in detail including bleeding, missing the lesion and perforation requiring emergency surgery and anesthetic risks. Patient agreed to proceed. Patient brought to the endoscopy suite and routine monitors performed. She is placed in left lateral position. After adequate MAC anesthesia obtained the scope inserted passed on esophagus. She does have a long segment of Corral's esophagus from about 30 to 34 cm. There is no nodularity or masses.The scope inserted retroflexed view showed a small recurrent hernia and a loose wrap. Remainder thestomach and up to second portion of the duodenum were normal. The scope was then withdrawn multiplebiopsies were obtained of the GE junction and distal esophagus to adequately sampler area of Corral's esophagus. After this was done scope was inserted air was aspirated stomach and the scope was wit hdrawn. Next we turned our attention the colon. Perianal inspection digital rectal exam was normal. The scope was then inserted passed up to the cecum. We did have some difficulty traversing through her sigmoid colon and she has some redundancy and significant diverticulosis. Will get up to the cecum identified with appendiceal opening the ileocecal valve. The scope was then withdrawn mucosa was carefully evaluated. There were no mucosal lesions identified. There was a significant amount of sigmoid diverticulosis. Retroflexed view was normal. Scope was withdrawn she tolerated the procedure well. PRE-OP/PRE-PROCEDURE DIAGNOSIS: Corral's esophagus screening colonoscopy POST-OP/POST-PROCEDURE DIAGNOSIS: Same as Preop ESTIMATED BLOOD LOSS: 0 ml SPECIMENS: GE junction biopsies IMPLANTABLE DEVICES: NONE DRAINS: None COMPLICATIONS: None PARTICIPATION IN SURGERY/PROCEDURE: Resident, under direct supervision and the remainder of the procedure was performed by the primary surgeon/proceduralist with assistance. SIGNATURE: Yaw Apple MD PATIENT NAME: Mu Lincoln DATE: August 28, 2024 TIME: 12:29 PM [facility]15-2024 Surgical operation note* Operative Report - Yaw Apple MD - 08/28/2024 11:30 AM EST OPERATIVE/PROCEDURE REPORT LOG ID: [id number] SURGERY/PROCEDURE DATE: 08/28/2024 INCISION/PROCEDURE START TIME: INCISION CLOSE/PROCEDURE END TIME: 12:24 PM SURGEON(S)/PROCEDURALIST(S) AND WAREHOUSE RECEIVING CLERK(S): Yaw Apple MD - Proceduralist Ethan Ramírez, SURGERY/PROCEDURE(S): EGD with biopsy Colonoscopy ANESTHESIA: Monitored Anesthesia Care SURGERY/PROCEDURE DETAILS: Patient is a 83-year-old female with a history of Corral's esophagus which is a long segment presents today for surveillance and need for screening colonoscopy. The risks,and complications of the procedure were reviewed with the patient in detail including bleeding, missing the lesion and perforation requiring emergency surgery and anesthetic risks. Patient agreed to proceed. Patient brought to the endoscopy suite and routine monitors performed. She is placed in left lateral position. After adequate MAC anesthesia obtained the scope inserted passed on esophagus. She does have a long segment of Corral's esophagus from about 30 to 34 cm. There is no nodularity or masses.The scope inserted retroflexed view showed a small recurrent hernia and a loose wrap. Remainder thestomach and up to second portion of the duodenum were normal. The scope was then withdrawn multiplebiopsies were obtained of the GE junction and distal esophagus to adequately sampler area of Corral's esophagus. After this was done scope was inserted air was aspirated stomach and the scope was wit hdrawn. Next we turned our attention the colon. Perianal inspection digital rectal exam was normal. The scope was then inserted passed up to the cecum. We did have some difficulty traversing through her sigmoid colon and she has some redundancy and significant diverticulosis. Will get up to the cecum identified with appendiceal opening the ileocecal valve. The scope was then withdrawn mucosa was carefully evaluated. There were no mucosal lesions identified. There was a significant amount of sigmoid diverticulosis. Retroflexed view was normal. Scope was withdrawn she tolerated the procedure well. PRE-OP/PRE-PROCEDURE DIAGNOSIS: Corral's esophagus screening colonoscopy POST-OP/POST-PROCEDURE DIAGNOSIS: Same as Preop ESTIMATED BLOOD LOSS: 0 ml SPECIMENS: GE junction biopsies IMPLANTABLE DEVICES: NONE DRAINS: None COMPLICATIONS: None PARTICIPATION IN SURGERY/PROCEDURE: Resident, under direct supervision and the remainder of the procedure was performed by the primary surgeon/proceduralist with assistance. SIGNATURE: Yaw Apple MD PATIENT NAME: Mu Lincoln DATE: August 28, 2024 TIME: 12:29 PM documented in this encounterWhite Hospital11-13-2024 History of Present illness Narrative* Nato Fisher MD - 08/26/2024 10:40 AM EST Images from the original note were not included. TRANSPLANT NEPHROLOGY : OUTPATIENT CLINIC NOTE SERVICE DATE : 08/26/2024 REASON FOR VISIT/CHIEF COMPLAINT: S/P TRANSPLANT SURGERY IMMUNOSUPPRESSIVE MEDICATION MANAGEMENT BLOOD PRESSURE MANAGEMENT HPI: Ms. Lincoln is a 83 y.o. female with past medical history significant for hypertension, dyslipidemiaand End Stage Renal Disease secondary to unknown etiology. Patient underwent the 1st donorrenal transplant on 01/12/2009. The first kidney allograft got thrombosed and was removed right aftersurgery. 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 Last seen 08/2023. Here for follow up. Pt is s/p mastectomy at [facility] 05/2024. Under surveillance by oncology. Last available labs from 05/2024 with stable Cr, 1.26. Home Bps usually 120/70s per pt. Office BP elevated today. Doing well otherwise. Scheduled for endoscopy this week. Denied chest pain, SOB, PAETL, Palpitation. Normal urination and bowel movement. Normal gait and no weakness of arms/legs. No cough, runny nose, sore throat, cold symptoms, or rash. No hearing loss. Normal vision.No problems with his sleep, mood and function. No recent infection, hospitalization, surgery or ER visits. ROS: Review of 14 systems was performed system by system. See HPI. Otherwise, the symptoms were negative. PAST MEDICAL HISTORY: No past medical history on file. PAST SURGICAL HISTORY: Past Surgical History: Procedure Laterality Date OTHER SURGICAL HISTORY 02/12/2019 Hernia repair SOCIAL HISTORY: Social History Socioeconomic History Marital status: Spouse name: Not on file Number of children: Not on file Years of education: Not on file Highest education level: Not on file Occupational History Not on file Tobacco Use Smoking status: Not on file Smokeless tobacco: Not on file Substance and Sexual Activity Alcohol use: Not on file Drug use: Not on file Sexual activity: Not on file Other Topics Concern Not on file Social History Narrative Not on file Social Drivers of Health Financial Resource Strain: Not on file Food Insecurity: No Food Insecurity (08/26/2024) Hunger Vital Sign Worried About Running Out of Food in the Last Year: Never true Ran Out of Food in the Last Year: Never true Transportation Needs: Not on file Physical Activity: Not on file Stress: No Stress Concern Present (08/26/2024) [employer] - Occupational Stress Questionnaire Feeling of Stress : Not at all Social Connections: Not on file Intimate Partner Violence: Not on file Housing Stability: Not on file FAMILY HISTORY: No family history on file. MEDICATION LIST: Current Outpatient Medications Medication Instructions biotin 10,000 mcg capsule 1 capsule, oral, Daily cinacalcet (SENSIPAR) 30 mg, oral, Daily, Take with food or shortly afer a meal. Swallow tablet whole; do not break or divide. cinacalcet (SENSIPAR) 30 mg, oral, Daily, Take with food or shortly afer a meal. Swallow tablet whole; do not break or divide. famotidine (PEPCID) 20 mg, oral, Daily levothyroxine (SYNTHROID, LEVOXYL) 75 mcg, oral, Daily before breakfast lisinopril 5 mg, oral, Daily mycophenolate (Cellcept) 250 mg capsule TAKE TWO (2) CAPSULES BY MOUTH TWICE A DAY Prolia 60 mg, subcutaneous, Every 6 months tacrolimus (Prograf) 1 mg capsule TAKE TWO (2) CAPSULES BY MOUTH TWICE DAILY ALLERGY No Known Allergies PHYSICAL EXAM: Visit Vitals BP 167/84 Pulse 73 Temp 36.4 C (97.5 F) (Temporal) Wt 47.6 kg (104 lb 14.4 oz) SpO2 97% BMI 19.82 kg/m BSA 1.43 m General Appearance - NAD, A&Ox3 HEENT - Supple. Not pale. No jaundice. No JVD or LAD CVS - RRR. Normal S1/S2. No murmur, rub or gallop Lungs- clear to auscultation bilaterally Abdomen - soft , NT, ND, no guarding. No hepatosplenomegaly. No allograft tenderness Musculoskeletal /Extremities - no edema. Full ROM. No joint tenderness. Neuro/Psych - appropriate mood and affect. Motor power V/V all extremities. CN I -XII were grossly intact. Skin - No visible rash LABS: Lab Results Component Value Date CREATININE 1.20 08/14/2023 BUN 22 08/14/2023 NA 138 08/14/2023 K 4.0 05/14/2024 CL 107 08/14/2023 CO2 24 08/14/2023 Lab Results Component Value Date CALCIUM 7.9 08/14/2023 PHOS 3.6 02/10/2019 Lab Results Component Value Date WBC 4.8 02/10/2019 HGB 11.1 05/14/2024 HCT 33.8 05/14/2024 MCV 97 02/10/2019 PLT 255 08/14/2023 No results found for: IRON, TIBC, FERRITIN Lab Results Component Value Date TACROLIMUS 4.7 05/14/2024 No results found for: CMVDNAPCR, BKVDNAPCR, EBVDNAPCR ASSESSMENT AND PLAN: Ms. Lincoln is a 83 y.o. female who is here for follow up s/p kidney transplant. TRANSPLANT DATE: 03/08/2011 (Kidney), 01/12/2009 (Kidney) 1. ESRD S/P kidney transplant - Creatinine last check was 1.26, stable allograft function -Random urine protein/creatinine ratio is pending. On lisinopril 5mg/d -Ensure adequate hydration - Avoid nephrotoxic medications, NSAIDs, and IV contrast. 2. Immunosuppression -Tacrolimus level last check was 4.7, acceptable. Goal 4-6. -Continue MMF 500 mg q12, not on pred -no recent viral pcr checked 3. Electrolytes -Acceptable from last lab drawn 4. Hypertension -recent home BPs acceptable. No hypervolemia on exam -cont to monitor home BP, call if trends concerning -Continue current anti hypertensive medication 5. Bone Mineral Disease/Osteoporosis - Ca, phos acceptable - on denosumab for osteoporosois - Consider DEXA every 2-3 years , defer to PCP 6.Anemia/Leukoepnia: - Hb, WBC stable on po iron. 7.Health maintenance and vaccination - Flu shot during flu season annually - Cancer screening is up to date per the patient Lab : Routine transplant lab ( CBC, RFP, and anti-rejection trough level ) every 3 months Additional labs: VIT D, PTH Q3 months Viral screening PCR, Allosure and UPC per protocol. RTC 12 month(s) [facility] Work Phone: [phone] 496-355411-04-2024 Telephone encounter Note* Telephone Encounter - Zo Robertson MA - 08/17/2024 10:01 AM EST Miralax Bowel Prep Instructions Clear Liquid Diet Food Items Allowed Water Clear Juices (apple or cider; white grape juice) Quinteros Rizwan-Aid (no red or blue color) Lemonade Soda Tea Coffee (without cream) Clear gelatin (without fruit/no red or blue color) Popsicles (without fruit or cream/no red or blue color) Bhutanese ices (no red or blue color) Condiments (sugar, salt, and pepper) Food Items Not Allowed Red juices or red fluids Milk Cream Milkshakes Tomato juice [place] juice Grapefruit juice Cream soups Any soups other than broth (chicken or beef) Oatmeal Cream of Wheat [facility]11-04-2024 Miscellaneous Notes* Telephone Encounter - Zo Robertson MA - 08/17/2024 10:01 AM EST Miralax Bowel Prep Instructions Clear Liquid Diet Food Items Allowed Water Clear Juices (apple or cider; white grape juice) Quinteros Rizwan-Aid (no red or blue color) Lemonade Soda Tea Coffee (without cream) Clear gelatin (without fruit/no red or blue color) Popsicles (without fruit or cream/no red or blue color) Bhutanese ices (no red or blue color) Condiments (sugar, salt, and pepper) Food Items Not Allowed Red juices or red fluids Milk Cream Milkshakes Tomato juice York juice Grapefruit juice Cream soups Any soups other than broth (chicken or beef) Oatmeal Cream of Wheat documented in this encounterWhite Hospital10-02-2024 Telephone encounter Note * Telephone Encounter - Yong Mcdonald RN - 07/15/2024 3:23 PM EDT Patient called last week and left a message about scheduling an EGD (for Corral's surveillance) & colonoscopy (due in 2024). I called the patient back today and gave her the date of 08/28/24 at 11:30 with 10:30 AM arrival time at [facility]. Patient agreed with that appointment. Patient then shared with me she was hospitalized at [facility] in June with constipationand possible bowel obstruction. They gave me enemas which didn't really work. Then they did a CT and once I drank the contrast everything opened up. The surgeon recommended I try to have the colonoscopy this year. I called [facility] radiology dept and asked them to push the abdominal CT, UGI w/SBFT & plain abdominal films from 06/21/24 to [facility]. I told Mu I will share all this info with Dr. Apple. She thanked me for the call. Yong Mcdonald RN [facility]10-02-2024 Miscellaneous Notes* Telephone Encounter - Yong Mcdonald RN - 07/15/2024 3:23 PM EDT Patient called last week and left a message about scheduling an EGD (for Corral's surveillance) & colonoscopy (due in 2024). I called the patient back today and gave her the date of 08/28/24 at 11:30 with 10:30 AM arrival time at [facility]. Patient agreed with that appointment. Patient then shared with me she was hospitalized at [facility] in June with constipationand possible bowel obstruction. They gave me enemas which didn't really work. Then they did a CT and once I drank the contrast everything opened up. The surgeon recommended I try to have the colonoscopy this year. I called [facility] radiology dept and asked them to push the abdominal CT, UGI w/SBFT & plain abdominal films from 06/21/24 to [facility]. I told Mu I will share all this info with Dr. Apple. She thanked me for the call. Yong Mcdonald RN documented in this encounterWhite Hospital03-01-2024 NoteHNO ID: [id number] Author: HAILEE PANIAGUA RN Service: Nursing Author Type: Registered Nurse Type: Nursing Progress Note Filed: 12/13/2023 09:27 Note Text: Dr Apple at bedside discussing case with patient.[facility] 12-13-2023 Nurse Note* Hailee Paniagua RN - 12/13/2023 9:[address] Apple at bedside discussing case with patient. documented in this encounterWhite Hospital03-01-2024 History and physical note * Ge Skelton APRN.SHAHAB - 12/13/2023 9:00 AM EST HISTORY AND PHYSICAL EXAMINATION SERVICE DATE: 12/13/2023 SERVICE TIME: 8:25 AM PRIMARY CARE PHYSICIAN: Osman eSe MD REASON FOR VISIT: The reason for this visit is To perform a comprehensive review of the patients past medical history, assess their current health status and obtain any additional testing required based on anesthesia guidelines. To assess and identify potential anesthesia problems, particularly those that may suggest potential complications or contraindications to the planned procedure. The patient has the following: ACTIVE PROBLEM [...] Without Dysplasia Hernia, Hiatal Gastroesophageal Reflux Disease Hiatal Hernia Gerd With Esophagitis Gerd (Gastroesophageal Reflux Disease) Generalized Abdominal Pain Kidney Transplant Recipient Pre-Op Exam Hypothyroidism Subjective CHIEF COMPLAINT: Preoperative Examination HPI: Patient present to [facility] for the above procedure. Patient here for routine Upper GI Endoscopy screening. Patient reports hx of Corral's esophagus. Patient denies any N/V/D or constipation. Denies any abdominal pain. Denies any melena, hematochezia, or hematemesis. Patient denies any other problems at this time. Denies any family history of Colon cancer or other Gastric ca. Patient agreedto planned procedure. METS: Climb a flight of stairs or walk up a hill (5.50 METs) Patient denies any CP/SOB with above activity. 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) Anemia, unspecified 12/18/2005 Corral's esophagus determined by biopsy Benign neoplasm of colon 10/14/2001 by colonoscopy Chronic kidney disease (CKD) transplant 2010 Diverticulosis of colon (without mention of hemorrhage) Esophageal reflux Generalized osteoarthrosis, unspecified site hands, but no frequent nsaids GERD (gastroesophageal reflux disease) Hemorrhage of rectum and anus Hiatal hernia with gastroesophageal reflux Internal hemorrhoids without mention of complication Osteoporosis Pure hypercholesterolemia due to CKD Unspecified hypothyroidism PAST SURGICAL HISTORY Procedure Laterality Date ARTERIOVENOUS ANASTOMOSIS OPEN DIRECT Left 02/19/2011 ; PARATHYROIDECTOMY/EXPL PARATHYRD 04/2013 COLONOSCOPY FLX DX W/COLLJ SPEC WHEN PFRMD 12/26/2000 Colonoscopy [facility] COLONOSCOPY FLX DX W/COLLJ SPEC WHEN PFRMD 07/22/2006 COLONOSCOPY FLX DX W/COLLJ SPEC WHEN PFRMD 09/10/2017 Colonoscopy COLONOSCOPY W/BIOPSY SINGLE/MULTIPLE 08/30/2009 right and left sided diverticulosis, 10cm mucosal irritation (prolapse) COLSC FLX W/RMVL OF TUMOR POLYP LESION SNARE TQ 12/18/2005 EGD TRANSORAL BIOPSY SINGLE/MULTIPLE 08/07/2017 Corral's without dysplasia EGD TRANSORAL BIOPSY SINGLE/MULTIPLE 03/05/2018 Corral's without dysplasia EGD TRANSORAL BIOPSY SINGLE/MULTIPLE 03/13/2019 Corral's without dysplasia; Dr. Apple EGD TRANSORAL BIOPSY SINGLE/MULTIPLE 09/16/2019 Corral's without dysplasia; Dr. Apple EGD WITH BIOPSY(S) 11/03/2021 Corral's without dyplasia; Dr. Apple ESOPHAGEAL MOTILITY STUDY W/INTERP&RPT 03/05/2018 ESOPHAGOSCOPY FLEX TRANSORAL LESION ABLATION 12/14/2016 ESOPHAGOSCOPY FLEX TRANSORAL LESION ABLATION 10/22/2016 ESOPHAGOSCOPY FLEX TRANSORAL LESION ABLATION 03/21/2017 ESOPHAGOSCOPY FLEX TRANSORAL LESION ABLATION 05/08/2017 ESOPHAGOSCOPY FLEX TRANSORAL LESION ABLATION 11/13/2017 ESOPHAGOSCOPY FLEX TRANSORAL LESION ABLATION 12/25/2017 ESOPHAGOSCOPY FLEX TRANSORAL LESION ABLATION 05/15/2019 #1; Dr. Apple ESOPHAGOSCOPY FLEX TRANSORAL LESION ABLATION 07/22/[address] #[address] 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 [facility] LAP RPR PARAESPHGL HRNA INCL FUNDPLSTY W/MESH 10/23/2018 Dr. Apple PAST SURGICAL HISTORY OF Left 07/2005 fistula put in arm PAST SURGICAL HISTORY OF 07/2013 removal of fistula PAST SURGICAL HISTORY OF 01/2009 failed kidney transplant REPAIR INCISIONAL HERNIA 10/2011 at renal transplant site TONSILLECTOMY PRIMARY/SECONDARY AGE 12/> at age 40 TOTAL ABDOMINAL HYSTERECT W/WO RMVL TUBE OVARY 1989 with unilateral oophorectomy FAMILY HISTORY Problem Relation Age of Onset Cancer Father non-Hodgkin's lymphoma Heart Brother arrythmia Cancer Son Hodgkins; None Mother Cancer Brother cancer of esophagus None Brother Cancer Other gastrointestinal Cancer Paternal Grandfather gastrointestinal Colon Cancer No Family History SOCIAL HISTORY: Social History Tobacco Use Smoking status: Never Smokeless tobacco: Never Vaping Use Vaping Use: Never used Substance Use Topics Alcohol use: Yes Alcohol/week: 5.0 standard drinks of alcohol Types: 5 Standard drinks or equivalent per week Comment: occasional-every couple weeks Drug use: No Prior to Admission medications as of 12/13/23 0846 Medication Sig Last Dose Taking famotidine (PEPCID) 20 mg tablet take 1 tablet by mouth twice a day before meals Yes cinacalcet (SENSIPAR) 30 mg tablet Take 30 mg by mouth once daily. Yes Vit A,C,S-Ntfy-Nrqews (PRESERVISION AREDS) 14,320-226-200 akcw-ti-yrfp cap Take by mouth. Yes denosumab (PROLIA) 60 mg/mL Inject 60 mg subcutaneously one time only. Every 6 months 11/08/2023 Yes Biotin 10,000 mcg cap Take by mouth once daily. Yes alprazolam (XANAX ORAL) Take 0.25 mg by mouth daily at bedtime. Yes lisinopril 2.5 mg tablet Take 5 mg by mouth once daily. 12/13/2023 at 500 Yes Magnesium Hydroxide 400 mg (170 mg) chew Take 250 Each by mouth daily at bedtime. Yes mycophenolate Mofetil (CELLCEPT) 500 mg tablet Take 500 mg by mouth twice daily. Yes tacrolimus IR (PROGRAF) 1 mg capsule 1 mg twice daily. Yes Cholecalciferol, Vitamin D3, 3,000 unit tab Take 1,000 Units by mouth once daily. Yes LEVOTHYROXINE 75 MCG TAB Take one(1) tablet daily. Yes Lactobac no.41/Bifidobact no.7 (PROBIOTIC-10 ORAL) Take by mouth. famotidine (PEPCID) 40 mg tablet Take 20 mg by mouth once daily. No medication comments found. ALLERGIES No Known Allergies COMPLETE REVIEW OF SYSTEMS: PAIN ASSESSMENT: Pain Pain Level: 0 Pain Assessment: Assessment Tool: Verbal (Numeric Rating or Visual Analog Scale) General: No weight loss, malaise or fevers. Neuro: No neurological symptoms or problems; no hx of seizure or stroke Respiratory: No history of current cough, wheezing, dyspnea, or recent pneumonia; no hx of asthma, COPD, or ROSE Cardiovascular: No history of HTN requiring medication, no history of chest pain, palpitations, CHF, IL, cardiac surgery or stents GI: see HPI : No history of dysuria, frequency or incontinence, stones, + chronic kidney disease (kidney transplant 2010) Endocrine: Negative for Diabetes, + thyroid disease Hematology: No history of bleeding or clotting disorder. No history of hematological symptoms or problems. Oncology: No history of oncological symptoms or problems. Psych: No history of psychiatric symptoms or problems. Musculoskeletal: Negative for joint pain or swelling, back pain or muscle pain. Skin: Negative for lesions, rash and itching. Objective PHYSICAL EXAM: MENTAL STATUS: alert, oriented to person, place and time HEENT: Normocephalic/atraumatic, pharynx clear LUNGS: CTA, no wheezing CARDIAC: RRR, no murmur ABDOMEN: Abdomen soft, non-tender, BS normal, No masses or organomegaly EXTREMITIES: 2+ pedal pulses, no pedal edema 12/13/23 0826 BP: 136/83 Pulse: 71 Resp: 16 Temp: 36.2 C (97.2 F) TempSrc: Temporal SpO2: 100% Weight: 47.6 kg (105 lb) Height: 160 cm (5' 3) Body mass index is 18.6 kg/m . Patient has the following medical conditions which may affect henry-operative course Problem List Items Addressed This Visit Unprioritized Kidney transplant recipient (Chronic) Current Assessment & Plan 03/08/2011 kidney transplant, On Tacrolimus, sensipar no recent lab work. Patient reports labs done every 3 [facility] at [facility] Anemia, unspecified Current Assessment & Plan Per patient - resolved after kidney transplant per patient. no recent lab work 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 Current Assessment & Plan EGD today Relevant Orders EGD DIAGNOSTIC Pre-op exam Current Assessment & Plan Medical conditions which may affect the perioperative course were address in today's visit. Hypothyroidism Current Assessment & Plan On synthroid Last dose 12/12/23 Diagnosis: 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 [K22.70] Planned Procedure: EGD The Following Tests/Procedures Have Been Initiated: IV start and Maintenance fluid for the procedure. ANESTHESIA FINDINGS: Significant Anesthesia Considerations: None FAMILY PROBLEMS WITH ANESTHESIA: no history of adverse anesthetic event Planned Anesthetic: MAC I spent a total of 20 minutes on the date of the service which included preparing to see the patient, [id number] patient care, completing clinical documentation, and performing a medically appropriate examination. Instructions Given to Patient: Patient given verbal preop instructions and voices comprehension and compliance. SIGNATURE: Ge Skelton APRN.CNP PATIENT NAME: Mu Varnerwrer DATE: December 13, 2023 TIME: 8:09 AM PAGER/CONTACT #: documented in this encounterWhite Hospital03-01-2024 Surgical operation note* Operative Report - Yaw Apple MD - 12/13/2023 9:00 AM EST OPERATIVE/PROCEDURE REPORT LOG ID: [id number] SURGERY/PROCEDURE DATE: 12/13/2023 INCISION/PROCEDURE START TIME: 8:59 AM INCISION CLOSE/PROCEDURE END TIME: 9:09 AM SURGEON(S)/PROCEDURALIST(S) AND WAREHOUSE RECEIVING CLERK(S): Yaw Apple MD - Proceduralist No Additional Staff SURGERY/PROCEDURE(S): EGD with biopsy ANESTHESIA: Monitored Anesthesia Care SURGERY/PROCEDURE DETAILS: Patient is a 83-year-old female with a history of Corral's esophagus and presents today for surveillance. The risks, benefits and complications were reviewed including butnot limited to bleeding, infection, missing a lesion, effects of anesthesia and perforation possibly requiring an emergency surgery. Patient brought to the endoscopy suite and routine monitors performed. She was placed in left lateral position. After adequate MAC anesthesia was obtained the scope was inserted passed on the esophagus. Z-line noted to be about 32 cm. There is a length of Corral's esophagus from 30 to 32 cm. It was mostly on 1 side. Scope was inserted retroflexed view showed the Petra to be a little loose. Remainder the stomach on the second portion of the duodenum were normal. The scope was then withdrawn and multiple biopsies were obtained of the distal esophagus starting distally moving proximally all areas of concern of Corral's esophagus were biopsied. We did this in quadrants 2 cm apart. Air was aspirated stomach and the scope was withdrawn. She taught the procedure well. PRE-OP/PRE-PROCEDURE DIAGNOSIS: Corral's esophagus POST-OP/POST-PROCEDURE DIAGNOSIS: Same as Preop ESTIMATED BLOOD LOSS: 0 ml SPECIMENS: Distal esophageal biopsies IMPLANTABLE DEVICES: NONE DRAINS: None COMPLICATIONS: None PARTICIPATION IN SURGERY/PROCEDURE: I/primary surgeon/proceduralist performed the entire procedure. SIGNATURE: Yaw Apple MD PATIENT NAME: Mu Lincoln DATE: December 13, 2023 TIME: 9:13 AM documented in this encounterWhite Hospital12-05-2023 Discharge summary Author Charissa Cedeno [facility] September 17, 2023 2:07pm Note Date/Time September 17, 2023 2 :08pm [facility] Physical Therapy [facility] [phone] [facility]. [address] [place] [address] / REHABILITATION SERVICES DISCHARGE SUMMARY MR#: [id number] Acct: [id number] Name: MU LINCOLN Rep #: [id number] : 1940 82 From: Charissa Cedeno MP T Referring Dr.: Dr. Osman See MD Status: REG RCR Insurance: MEDICARE PART A B ANTH Discharge Summary D/C summary: It has been my pleasure to treat MU LINCOLN referred by Dr. Osman See MD, with the diagnosis of L>R positional hand paresthesia/functional TOS for a totalof 2 visit(s). Discharge Date: 09/17/23 Please see the following information for a summary of their discharge status. Subjective Subjective: Exercises are going well and she has been doing them daily and no Numbness has occurred since the summer. Overall Improvement % Improvement: 100 Objective Objective/Function: Tight along the mid and lower trap region B Goals Goal 1:: I HEP Goal 2:: Sit with upright posture Plan Plan: See the pt for 1 additional visit to go over HEP that was given today, additional scapular exercises, and some MT to the UT/mid trap and levator regionwith cont of HEP HEP: scapular retraction, laying supine over a towel along the spine, and orange t-band mid row D/C Information Discharge Comments: DC PT to HEP d/c sentence: If there are questions or concerns regarding this patient's physical therapy, please feel free to call me at [phone]. Thank you for the referral of thispatient. Sincerely, NORMA Bourne Balance/Gait/Functional tests Balance/Special Test Scores Quick DASH Score: 6.8175 Improvement % Improvement: 100 <Electronically signed by Charissa Cedeno MPT> 09/17/23 2642 CC: Dr. Osman See MD ~ Signed [facility] Work Phone: 1(230) 906-196108-04-2023 Discharge summary Author Cecilia Urena [facility] May 17, 2023 9:54am Note Date/Time May 17, 2023 9:5 4am [facility] Occupational Therapy [facility] [address] [place] [address] / REHABILITATION SERVICES DISCHARGE SUMMARY MR#: [id number] Acct: [id number] Name: MU LINCOLN Rep #: [id number] : 1940 82 From: Cecilia VAIL CHT Referring Dr.: Dr. Osman See MD Status: REG RCR Eval Date: Discharge Date: Discharge Summary D/C Summary: It has been my pleasure to treat MU LINCOLN under orders from Dr. Osman See MD, for the diagnosis of CTS for a total of 1 visit(s). Please see the following information for a summary of their discharge status. Plan Plan: pt requested HEP only. D/C Information Discharge Comments: Pt was seen for eval only and given HEP on CTS. pt has not scheduled further apts and is d/c at this time. d/c sentence: If there are questions or concerns regarding this patient's occupational therapy, please fell free to call me at [phone]. Thank you for the referral of this patient. Sincerely, GENNA Espinosa CHT <Electronically signed by Cecilia VAIL CHT> 05/17/23 0954 CC: Dr. Osman See MD ~ MK Signed [facility] Work Phone: 1(203) 578-733002-27-2023 History of Present illness Narrative* Post Transplant Follow Up: * Referring Provider: Dr. Douglas Aldrich (tel. [phone], fax. [phone]). * Ethnicity: White: Not Specified/Unknown. * Donor/Transplant Type: A donor renal transplant on: 01/12/2009 (thrombosed, removed after surgery), 03/08/2011. * Transplant Course: Other: CLINICAL NURSE MANAGER donor. * Rejections: No episodes of rejection. * Infection: No episodes of infection. * Malignancies After Transplant: No episodes of post transplant malignancy. * Subjective: This is 82 year old White female with past medical history significant for hypertension, dyslipidemia and End Stage Renal Disease secondary to unknown etiology. Patient underwent the 1st donor renal transplant on 01/12/2009. The first kidney allograft got thrombosed and was removed right after surgery. 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 * Here for telephone visit to review lab after starting Sensipar and review blood pressure. * Her BP seems to be at the goal around 110-120/70-80 mmhg with Lisinopril initiation. * Patient is otherwise doing well with no complaints. * Today, the patient denies any headache, focal weakness, or tingling, sob, headache, cough, fever, chills, vomiting, nausea diarrhea, constipation, difficulty with bladder, dysuria, hematuria. * Patient denies difficulty obtaining medications. * Patient denies active tobacco use. * Impression: Allograft Function good, eGFR: 36. * Immunosuppression Levels: Adequate. * Blood Pressure Control: Adequate * Blood Count: anemia. * Return to Clinic: In 6 months * Lab Frequency: Every three months [facility] Work Phone: 1(758) 868-912302-13-2023 History of Present illness Narrative* Post Transplant Follow Up: * Referring Provider: Dr. Douglas Aldrich (tel. [phone], fax. [phone]). * Ethnicity: White: Not Specified/Unknown. * Donor/Transplant Type: A donor renal transplant on: 01/12/2009 (thrombosed, removed after surgery), 03/08/2011. * Transplant Course: Other: CLINICAL NURSE MANAGER donor. * Rejections: No episodes of rejection. * Infection: No episodes of infection. * Malignancies After Transplant: No episodes of post transplant malignancy. * Subjective: This is 82 year old White female with past medical history significant for hypertension, dyslipidemia and End Stage Renal Disease secondary to unknown etiology. Patient underwent the 1st donor renal transplant on 01/12/2009. The first kidney allograft got thrombosed and was removed right after surgery. 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 * Here for telephone visit to review lab after starting Sensipar and review blood pressure. * Her BP seems to be at the goal around 110-120/70-80 mmhg with Lisinopril initiation. * Patient is otherwise doing well with no complaints. * Today, the patient denies any headache, focal weakness, or tingling, sob, headache, cough, fever, chills, vomiting, nausea diarrhea, constipation, difficulty with bladder, dysuria, hematuria. * Patient denies difficulty obtaining medications. * Patient denies active tobacco use. * Impression: Allograft Function good, eGFR: 36. * Immunosuppression Levels: Adequate. * Blood Pressure Control: Adequate * Blood Count: anemia. * Return to Clinic: In 6 months * Lab Frequency: Every three months [facility] [address] Work Phone: [phone]) 718-439502-10-2023 Miscellaneous Notes* Telephone Encounter - Yong Mcdonald RN - 11/23/2022 5:23 PM EST ----- Message from Yaw Apple MD sent at 11/20/2022 12:35 PM EST ----- Please call and tell her pathology consistent with her Corral's esophagus. Repeat EGD in 1 year I called patient and shared the above results. Yong Mcdonald RN documented in this encounterWhite [facility]02-03-[facility]23 Nurse Note* Catrina Ballesteros RN - 11/16/2022 11:[address] Apple rounds at bedside. documented in this encounterWhite Hospital02-03-2023 Surgical operation note* Operative Report - Yaw Apple MD - 11/16/2022 10:05 AM EST OPERATIVE/PROCEDURE REPORT LOG ID: [id number] SURGERY/PROCEDURE DATE: 11/16/2022 INCISION/PROCEDURE START TIME: 10:15 AM INCISION CLOSE/PROCEDURE END TIME: SURGEON(S)/PROCEDURALIST(S) AND WAREHOUSE RECEIVING CLERK(S): Yaw Apple MD - Proceduralist No Additional Staff SURGERY/PROCEDURE(S): EGD with biopsy ANESTHESIA: Monitored Anesthesia Care SURGERY/PROCEDURE DETAILS: Patient is an 82-year-old female with a history of Corral's esophagus and presents today for surveillance. The risks, benefits and complications were reviewed including but not limited to bleeding, infection, missing a lesion, effects of anesthesia and perforation possibly requiring an emergency surgery. She understood and was agreeable to proceed Patient brought to the endoscopy suite and routine monitoring was performed. She was placed in the left lateral decubitus position. After adequate MAC anesthesia is obtained the scope was inserted passed on the esophagus. Z-line noted to be at approximately 32 to 33 cm. There was a segment visualized concerning for Corral's esophagus from 29 to 32 cm. Scope was inserted retroflexed view showed arecurrent hernia and a loose wrap. Remainder the stomach and up to the second portion of the duodenum were normal. The scope was then withdrawn and multiple biopsies were obtained of the esophagus starting distally and then moving proximally. All 4 quadrants were obtained and 2 cm apart. Air was then aspirated the stomach and the scope was withdrawn. She tolerated the procedure well. PRE-OP/PRE-PROCEDURE DIAGNOSIS: Corral's esophagus POST-OP/POST-PROCEDURE DIAGNOSIS: Same as Preop ESTIMATED BLOOD LOSS: 0 ml SPECIMENS: Esophageal biopsies IMPLANTABLE DEVICES: NONE DRAINS: None COMPLICATIONS: None PARTICIPATION IN SURGERY/PROCEDURE: I/primary surgeon/proceduralist performed the entire procedure. SIGNATURE: Yaw Apple MD PATIENT NAME: Mu Lincoln DATE: November 16, 2022 TIME: 10:26 AM documented in this encounterWhite Hospital02-03-2023 History and physical note * Yaw Apple MD - 11/16/2022 9:55 AM EST UPDATED HISTORY AND PHYSICAL EXAMINATION SERVICE DATE: 11/16/2022 SERVICE TIME: 10:08 AM PHYSICAL EXAM MUST BE COMPLETED ON ADMISSION The History and Physical (completed in the past 30 days) has been reviewed and the patient has beenexamined. The contents accurately reflect the patient's condition with the following additions or revisions since the H&P was completed. Examination indicates no changes. This H&P can be found in the Electronic Medical Record dated 11/16/22. SIGNATURE: Yaw Apple MD PATIENT NAME: Mu Lincoln DATE: November 16, 2022 TIME: 10:08 AM TER Source Note - Kymberly Hollingsworth APRN.SWAGING MACHINE OPERATOR - 11/16/2022 9:55 AM EST HISTORY AND PHYSICAL EXAMINATION SERVICE DATE: 11/16/2022 SERVICE TIME: 944 PRIMARY CARE PHYSICIAN: Osman See MD Mu Lincoln 1940 [phone] REASON FOR VISIT: Mu Lincoln is a 82 year old female who is scheduled for....... EGD at the request of Dr. Yaw Apple for routine H&P. The patient has the following: ACTIVE PROBLEM [...] Without Dysplasia Hernia, Hiatal Gastroesophageal Reflux Disease Hiatal Hernia Gerd With Esophagitis Gerd (Gastroesophageal Reflux Disease) Generalized Abdominal Pain Kidney Transplant Recipient Subjective CHIEF COMPLAINT: corral's HPI: Mu Lincoln is a 82 year old female who is scheduled for above procedure. She has h/o corral's esophagus. Her last EGD was in 10/2021. She had a Petra fundoplication in 10/2018 and GERD symptoms improved. Denies abdominal pain, N/V. After discussion with the surgeon the patient agrees to surgical intervention. 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) Anemia, unspecified 12/18/2005 Corral's esophagus determined by biopsy Benign neoplasm of colon 10/14/2001 by colonoscopy Chronic kidney disease (CKD) transplant 2010 Diverticulosis of colon (without mention of hemorrhage) Esophageal reflux Generalized osteoarthrosis, unspecified site hands, but no frequent nsaids GERD (gastroesophageal reflux disease) Hemorrhage of rectum and anus Hiatal hernia with gastroesophageal reflux Internal hemorrhoids without mention of complication Osteoporosis Pure hypercholesterolemia due to CKD Unspecified hypothyroidism PAST SURGICAL HISTORY Procedure Laterality Date ARTERIOVENOUS ANASTOMOSIS OPEN DIRECT Left 02/19/2011 ; PARATHYROIDECTOMY/EXPL PARATHYRD 04/2013 COLONOSCOPY FLX DX W/COLLJ SPEC WHEN PFRMD 12/26/2000 Colonoscopy [facility] COLONOSCOPY FLX DX W/COLLJ SPEC WHEN PFRMD 07/22/2006 COLONOSCOPY FLX DX W/COLLJ SPEC WHEN PFRMD 09/10/2017 Colonoscopy COLONOSCOPY W/BIOPSY SINGLE/MULTIPLE 08/30/2009 right and left sided diverticulosis, 10cm mucosal irritation (prolapse) COLSC FLX W/RMVL OF TUMOR POLYP LESION SNARE TQ 12/18/2005 EGD TRANSORAL BIOPSY SINGLE/MULTIPLE 08/07/2017 Corral's without dysplasia EGD TRANSORAL BIOPSY SINGLE/MULTIPLE 03/05/2018 Corral's without dysplasia EGD TRANSORAL BIOPSY SINGLE/MULTIPLE 03/13/2019 Corral's without dysplasia; Dr. Apple EGD TRANSORAL BIOPSY SINGLE/MULTIPLE 09/16/2019 Corral's without dysplasia; Dr. Apple EGD WITH BIOPSY(S) 11/03/2021 Corral's without dyplasia; Dr. Apple ESOPHAGEAL MOTILITY STUDY W/INTERP&RPT 03/05/2018 ESOPHAGOSCOPY FLEX TRANSORAL LESION ABLATION 12/14/2016 ESOPHAGOSCOPY FLEX TRANSORAL LESION ABLATION 10/22/2016 ESOPHAGOSCOPY FLEX TRANSORAL LESION ABLATION 03/21/2017 ESOPHAGOSCOPY FLEX TRANSORAL LESION ABLATION 05/08/2017 ESOPHAGOSCOPY FLEX TRANSORAL LESION ABLATION 11/13/2017 ESOPHAGOSCOPY FLEX TRANSORAL LESION ABLATION 12/25/2017 ESOPHAGOSCOPY FLEX TRANSORAL LESION ABLATION 05/15/2019 #1; Dr. Apple ESOPHAGOSCOPY FLEX TRANSORAL LESION ABLATION 07/22/[address] #2 Dr[address] 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 [facility] LAPS RPR PARAESPHGL HRNA INCL FUNDPLSTY W/MESH 10/23/2018 Dr. Apple PAST SURGICAL HISTORY OF Left 07/2005 fistula put in arm PAST SURGICAL HISTORY OF 07/2013 removal of fistula PAST SURGICAL HISTORY OF 01/2009 failed kidney transplant REPAIR INCISIONAL HERNIA 10/2011 at renal transplant site TONSILLECTOMY PRIMARY/SECONDARY AGE 12/> at age 40 TOTAL ABDOMINAL HYSTERECT W/WO RMVL TUBE OVARY 1989 with unilateral oophorectomy FAMILY HISTORY Problem Relation Age of Onset Cancer Father non-Hodgkin's lymphoma Heart Brother arrythmia Cancer Son Hodgkins; None Mother Cancer Brother cancer of esophagus None Brother Cancer Other gastrointestinal Cancer Paternal Grandfather gastrointestinal Colon Cancer No Family History SOCIAL HISTORY: Social History Tobacco Use Smoking status: Never Smokeless tobacco: Never Vaping Use Vaping Use: Never used Substance Use Topics Alcohol use: Yes Alcohol/week: 5.0 standard drinks Types: 5 Standard drinks or equivalent per week Comment: occasional-every couple weeks Drug use: No Prior to Admission medications as of 11/16/22 0942 Medication Sig Last Dose Taking cinacalcet (SENSIPAR) 30 mg tablet Take 30 mg by mouth once daily. 11/15/2022 Yes Vit A,C,S-Whip-Xkvijs (PRESERVISION AREDS) 14,320-226-200 tzrx-eb-ikjb cap Take by mouth. 11/16/2022 Yes famotidine (PEPCID) 20 mg tablet TAKE 1 TABLET BY MOUTH TWICE A DAY BEFORE MEALS 11/15/2022 Yes Lactobac no.41/Bifidobact no.7 (PROBIOTIC-10 ORAL) Take by mouth. 11/15/2022 Yes Biotin 10,000 mcg cap Take by mouth once daily. 11/15/2022 Yes alprazolam (XANAX ORAL) Take 0.25 mg by mouth daily at bedtime. 11/15/2022 Yes lisinopril 2.5 mg tablet Take 5 mg by mouth once daily. 11/16/2022 at 0615 Yes Magnesium Hydroxide 400 mg (170 mg) chew Take 250 Each by mouth daily at bedtime. 11/15/2022 Yes mycophenolate Mofetil (CELLCEPT) 500 mg tablet Take 500 mg by mouth twice daily. 11/16/2022 at 0615 Yes tacrolimus IR (PROGRAF) 1 mg capsule 1 mg twice daily. 11/15/2022 Yes Cholecalciferol, Vitamin D3, 3,000 unit tab Take 1,000 Units by mouth once daily. 11/15/2022 Yes LEVOTHYROXINE 75 MCG TAB Take one(1) tablet daily. 11/16/2022 at 0130 Yes denosumab (PROLIA) 60 mg/mL Inject 60 mg subcutaneously one time only. Every 6 months 11/09/2022 famotidine (PEPCID) 40 mg tablet Take 20 mg by mouth once daily. No medication comments found. ALLERGIES No Known Allergies REVIEW OF SYSTEMS: PAIN ASSESSMENT: Pain Pain Level: 0 Pain Assessment: Assessment Tool: Verbal (Numeric Rating or Visual Analog Scale) General: Denies fever, chills, and unexpected weight change. Neuro: Denies dizziness and headaches. Denies seizure or stroke. Respiratory: Denies SOB or cough. Denies asthma, COPD ROSE Cardiovascular: Denies CP and palpitations. Denies HTN HLD CAD CHF GI: Denies abd pain and N/V/D. : + CKD Denies dysuria. SUPERINTENDENT POWER: Denies abnormal vaginal bleeding. Endocrine: No history of diabetes. + thyroid disease Hematology: Denies history of bleeding or clotting disorder. Psych: Denies anxiety/depression. Musculoskeletal: Denies joint pain and swelling. Skin: Denies open sores and rashes. Objective PHYSICAL EXAM: VITALS: BP 136/72 Pulse 78 Temp (Src) 96.8 (Temporal Artery) Resp 16 Ht 5' 0 (1.52m) Wt 104 lb (47.2kg) SpO2 100% BMI 20.31 kg/(m^2). O2 Therapy: Room Air General: NAD. Cooperative. Skin: Skin is warm, no rashes, and no open sores. HEENT: Normocephalic. Cardiovascular: Normal S1 & S2. No murmur. Lungs: CTA. No respiratory distress. Abdomen: Soft. Extremities: No edema. Neurological: Alert and oriented to person, place, and joy Diagnostic tests reviewed for today's visit: Lab [...] range. ABSCREEN No results within date range. No results found for: HBA1C No new labs Assessment/Plan ANESTHESIA FINDINGS: Intubation History: No history of difficult intubation Significant Anesthesia Considerations: None FAMILY PROBLEMS WITH ANESTHESIA: no history of adverse anesthetic event METS: Climb a flight of stairs or walk up a hill (5.50 METs) Patient denies any chest pain or undue shortness of breath with the above physical activity. Patient has the following medical conditions which may affect henry-operative course CKD-Renal transplant 02/2011-tacrolimus , Cellcept -no recent labwork -per patient she has labs every 3 months and has been normal. GERD-pepcid Anemia-resolved after kidney transplant per patient. 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 EGD at the request of Dr. Yaw Apple for routine H&P. The patient has the following: ACTIVE PROBLEM [...] Without Dysplasia Hernia, Hiatal Gastroesophageal Reflux Disease Hiatal Hernia Gerd With Esophagitis Gerd (Gastroesophageal Reflux Disease) Generalized Abdominal Pain Kidney Transplant Recipient Subjective CHIEF COMPLAINT: corral's HPI: Mu Lincoln is a 82 year old female who is scheduled for above procedure. She has h/o corral's esophagus. Her last EGD was in 10/2021. She had a Petra fundoplication in 10/2018 and GERD symptoms improved. Denies abdominal pain, N/V. After discussion with the surgeon the patient agrees to surgical intervention. 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) Anemia, unspecified 12/18/2005 Corral's esophagus determined by biopsy Benign neoplasm of colon 10/14/2001 by colonoscopy Chronic kidney disease (CKD) transplant 2010 Diverticulosis of colon (without mention of hemorrhage) Esophageal reflux Generalized osteoarthrosis, unspecified site hands, but no frequent nsaids GERD (gastroesophageal reflux disease) Hemorrhage of rectum and anus Hiatal hernia with gastroesophageal reflux Internal hemorrhoids without mention of complication Osteoporosis Pure hypercholesterolemia due to CKD Unspecified hypothyroidism PAST SURGICAL HISTORY Procedure Laterality Date ARTERIOVENOUS ANASTOMOSIS OPEN DIRECT Left 02/19/2011 ; PARATHYROIDECTOMY/EXPL PARATHYRD 04/2013 COLONOSCOPY FLX DX W/COLLJ SPEC WHEN PFRMD 12/26/2000 Colonoscopy [facility] COLONOSCOPY FLX DX W/COLLJ SPEC WHEN PFRMD 07/22/2006 COLONOSCOPY FLX DX W/COLLJ SPEC WHEN PFRMD 09/10/2017 Colonoscopy COLONOSCOPY W/BIOPSY SINGLE/MULTIPLE 08/30/2009 right and left sided diverticulosis, 10cm mucosal irritation (prolapse) COLSC FLX W/RMVL OF TUMOR POLYP LESION SNARE TQ 12/18/2005 EGD TRANSORAL BIOPSY SINGLE/MULTIPLE 08/07/2017 Corral's without dysplasia EGD TRANSORAL BIOPSY SINGLE/MULTIPLE 03/05/2018 Corral's without dysplasia EGD TRANSORAL BIOPSY SINGLE/MULTIPLE 03/13/2019 Corral's without dysplasia; Dr. Apple EGD TRANSORAL BIOPSY SINGLE/MULTIPLE 09/16/2019 Corral's without dysplasia; Dr. Apple EGD WITH BIOPSY(S) 11/03/2021 Corral's without dyplasia; Dr. Apple ESOPHAGEAL MOTILITY STUDY W/INTERP&RPT 03/05/2018 ESOPHAGOSCOPY FLEX TRANSORAL LESION ABLATION 12/14/2016 ESOPHAGOSCOPY FLEX TRANSORAL LESION ABLATION 10/22/2016 ESOPHAGOSCOPY FLEX TRANSORAL LESION ABLATION 03/21/2017 ESOPHAGOSCOPY FLEX TRANSORAL LESION ABLATION 05/08/2017 ESOPHAGOSCOPY FLEX TRANSORAL LESION ABLATION 11/13/2017 ESOPHAGOSCOPY FLEX TRANSORAL LESION ABLATION 12/25/2017 ESOPHAGOSCOPY FLEX TRANSORAL LESION ABLATION 05/15/2019 #1; Dr. Apple ESOPHAGOSCOPY FLEX TRANSORAL LESION ABLATION 07/22/2019 #[address] Dr[address] 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 [facility] LAPS RPR PARAESPHGL HRNA INCL FUNDPLSTY W/MESH 10/23/2018 Dr. Apple PAST SURGICAL HISTORY OF Left 07/2005 fistula put in arm PAST SURGICAL HISTORY OF 07/2013 removal of fistula PAST SURGICAL HISTORY OF 01/2009 failed kidney transplant REPAIR INCISIONAL HERNIA 10/2011 at renal transplant site TONSILLECTOMY PRIMARY/SECONDARY AGE 12/> at age 40 TOTAL ABDOMINAL HYSTERECT W/WO RMVL TUBE OVARY 1989 with unilateral oophorectomy FAMILY HISTORY Problem Relation Age of Onset Cancer Father non-Hodgkin's lymphoma Heart Brother arrythmia Cancer Son Hodgkins; None Mother Cancer Brother cancer of esophagus None Brother Cancer Other gastrointestinal Cancer Paternal Grandfather gastrointestinal Colon Cancer No Family History SOCIAL HISTORY: Social History Tobacco Use Smoking status: Never Smokeless tobacco: Never Vaping Use Vaping Use: Never used Substance Use Topics Alcohol use: Yes Alcohol/week: 5.0 standard drinks Types: 5 Standard drinks or equivalent per week Comment: occasional-every couple weeks Drug use: No Prior to Admission medications as of 11/16/22 0942 Medication Sig Last Dose Taking cinacalcet (SENSIPAR) 30 mg tablet Take 30 mg by mouth once daily. 11/15/2022 Yes Vit A,C,T-Bykn-Oxiuew (PRESERVISION AREDS) 14,320-226-200 aecc-cb-wunq cap Take by mouth. 11/16/2022 Yes famotidine (PEPCID) 20 mg tablet TAKE 1 TABLET BY MOUTH TWICE A DAY BEFORE MEALS 11/15/2022 Yes Lactobac no.41/Bifidobact no.7 (PROBIOTIC-10 ORAL) Take by mouth. 11/15/2022 Yes Biotin 10,000 mcg cap Take by mouth once daily. 11/15/2022 Yes alprazolam (XANAX ORAL) Take 0.25 mg by mouth daily at bedtime. 11/15/2022 Yes lisinopril 2.5 mg tablet Take 5 mg by mouth once daily. 11/16/2022 at 0615 Yes Magnesium Hydroxide 400 mg (170 mg) chew Take 250 Each by mouth daily at bedtime. 11/15/2022 Yes mycophenolate Mofetil (CELLCEPT) 500 mg tablet Take 500 mg by mouth twice daily. 11/16/2022 at 0615 Yes tacrolimus IR (PROGRAF) 1 mg capsule 1 mg twice daily. 11/15/2022 Yes Cholecalciferol, Vitamin D3, 3,000 unit tab Take 1,000 Units by mouth once daily. 11/15/2022 Yes LEVOTHYROXINE 75 MCG TAB Take one(1) tablet daily. 11/16/2022 at 0130 Yes denosumab (PROLIA) 60 mg/mL Inject 60 mg subcutaneously one time only. Every 6 months 11/09/2022 famotidine (PEPCID) 40 mg tablet Take 20 mg by mouth once daily. No medication comments found. ALLERGIES No Known Allergies REVIEW OF SYSTEMS: PAIN ASSESSMENT: Pain Pain Level: 0 Pain Assessment: Assessment Tool: Verbal (Numeric Rating or Visual Analog Scale) General: Denies fever, chills, and unexpected weight change. Neuro: Denies dizziness and headaches. Denies seizure or stroke. Respiratory: Denies SOB or cough. Denies asthma, COPD ROSE Cardiovascular: Denies CP and palpitations. Denies HTN HLD CAD CHF GI: Denies abd pain and N/V/D. : + CKD Denies dysuria. SUPERINTENDENT POWER: Denies abnormal vaginal bleeding. Endocrine: No history of diabetes. + thyroid disease Hematology: Denies history of bleeding or clotting disorder. Psych: Denies anxiety/depression. Musculoskeletal: Denies joint pain and swelling. Skin: Denies open sores and rashes. Objective PHYSICAL EXAM: VITALS: BP 136/72 Pulse 78 Temp (Src) 96.8 (Temporal Artery) Resp 16 Ht 5' 0 (1.52m) Wt 104 lb (47.2kg) SpO2 100% BMI 20.31 kg/(m^2). O2 Therapy: Room Air General: NAD. Cooperative. Skin: Skin is warm, no rashes, and no open sores. HEENT: Normocephalic. Cardiovascular: Normal S1 & S2. No murmur. Lungs: CTA. No respiratory distress. Abdomen: Soft. Extremities: No edema. Neurological: Alert and oriented to person, place, and joy Diagnostic tests reviewed for today's visit: Lab [...] range. ABSCREEN No results within date range. No results found for: HBA1C No new labs Assessment/Plan ANESTHESIA FINDINGS: Intubation History: No history of difficult intubation Significant Anesthesia Considerations: None FAMILY PROBLEMS WITH ANESTHESIA: no history of adverse anesthetic event METS: Climb a flight of stairs or walk up a hill (5.50 METs) Patient denies any chest pain or undue shortness of breath with the above physical activity. Patient has the following medical conditions which may affect henry-operative course CKD-Renal transplant 02/2011-tacrolimus , Cellcept -no recent labwork -per patient she has labs every 3 months and has been normal. GERD-pepcid Anemia-resolved after kidney transplant per patient. 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 [K22.70] Planned Procedure: EGD Planned Anesthetic: MAC SIGNATURE: Kymberly Hollingsworth APRN.CNP PATIENT NAME: Mu Lincoln DATE: November 16, 2022 TIME: 9:04 AM PAGER/CONTACT [facility] of Past illness Narrative* Problem Noted Date Resolved Date Dermatochalasis of both upper eyelids 12/15/2021 12/15/2021 documented as of this encounter (statuses as of 10/23/2022) [facility] of Past illness Narrative* Problem Noted Date Resolved Date Dermatochalasis of both upper eyelids 12/15/2021 12/15/2021 documented as of this encounter (statuses as of 11/01/2022) [facility] of Past illness Narrative* Problem Noted Date Resolved Date Dermatochalasis of both upper eyelids 12/15/2021 12/15/2021 documented as of this encounter (statuses as of 11/17/2022) [facility] of Past illness Narrative* Problem Noted Date Resolved Date Dermatochalasis of both upper eyelids 12/15/2021 12/15/2021 documented as of this encounter (statuses as of 11/24/2022) [facility] of Past illness Narrative* Problem Noted Date Diagnosed Date Resolved Date Dermatochalasis of both upper eyelids 12/15/2021 12/15/2021 documented as of this encounter (statuses as of 07/24/2023) [facility] of Past illness Narrative* Problem Noted Date Diagnosed Date Resolved Date Dermatochalasis of both upper eyelids 12/15/2021 12/15/2021 documented as of this encounter (statuses as of 12/14/2023) [facility] History of Present illness Narrative* This is a 78 year old White female with past medical history significant for hypertension, dyslipidemia and End Stage Renal Disease secondary to unknown etiology. Patient underwent the 1st donor renal transplant on 01/12/2009. The first kidney allograft got thrombosed and was removed right after surgery. 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 * Had radiofrequency ablation procedures at [facility] for Corral's esophagus. She had hiatal hernia surgery at [facility] on 10/23/2018.She is following with [facility] regularly and is getting Upper endoscopy in September 2021 for f/u. Later in January 2019, patient was hospitalized at [facility] for partial small bowel obstru ction which was managed conservatively not needing any surgical intervention. * Bp well controlled at home and usually ranging 110-120s systolic * Patient is doing well overall. No new complaints. Denied chest pain, SOB, PATEL, Palpitation. Normal urination and bowel movement. Normal gait and no weakness of arms/legs. No cough, runny nose, sore throat, cold symptoms, or rash. No hearing loss. Normal vision.No problems with his sleep, mood and function. No recent urinary tract infections, hospitalization, surgery or ER visits. [facility] Work Phone: Evaluation noteNo assessment information available [facility] Work Phone: Evaluation note* Diagnosis 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- Primary Corral's esophagus [facility] Diagnosis 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- Primary Corral's esophagus Gastroesophageal reflux disease without esophagitis Esophageal reflux Anemia, unspecified type Pre-op exam [Z01.818 (ICD-10-CM)] Preoperative examination, unspecified Chronic kidney disease, unspecified CKD stage [N18.9 (ICD-10-CM)] Pre-op exam Preoperative examination, unspecified Chronic kidney disease, unspecified CKD stage * Assessment & Plan Note - Kymberly Hollingsworth APRN.CNP - 11/16/2022 9:55 AM EST Associated Problem(s): Anemia, unspecified From CKD-resolved with kidney transplant * Assessment & Plan Note - Kymberly Hollingsworth APRN.CNP - 11/16/2022 9:55 AM EST Associated Problem(s): 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 EGD scheduled for today * Assessment & Plan Note - Kymberly Hollingsworth APRN.CNP - 11/16/2022 9:54 AM EST Associated Problem(s): Gastroesophageal reflux disease S/p Petra . Pepcid Corral's Last EGD 10/2021 * Assessment & Plan Note - Kymberly Hollingsworth APRN.CNP - 11/16/2022 9:53 AM EST Associated Problem(s): Chronic kidney disease (CKD) Renal transplant 02/2011-tacrolimus , Cellcept -no recent labwork in epic. Per patient she has checked every 3 months and all labs have been normal. [facility] Diagnosis Onset Date Resolution Status Bruit acute Kidney transplanted 2010 [facility] Work Phone: Evaluation note* Diagnosis 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 Corral's esophagus Pre-op exam Preoperative examination, unspecified Kidney transplant recipient Anemia, unspecified type Hypothyroidism, unspecified type Anemia, unspecified Esophageal reflux 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 Corral's esophagus Kidney transplant recipient Pre-op exam Preoperative examination, unspecified Hypothyroidism Unspecified hypothyroidism * Assessment & Plan Note - Ge Skelton APRN.CNP - 12/13/2023 8:45 AM EST Associated Problem(s): Hypothyroidism On synthroid Last dose 12/12/23 * Assessment & Plan Note - Ge Skelton APRN.CNP - 12/13/2023 8:25 AM EST Associated Problem(s): Anemia, unspecified Per patient - resolved after kidney transplant per patient. no recent lab work * Assessment & Plan Note - Ge Skelton APRN.CNP - 12/13/2023 8:22 AM EST Associated Problem(s): 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 EGD today * Assessment & Plan Note - Ge Skelton APRN.CNP - 12/13/2023 8:20 AM EST Associated Problem(s): Kidney transplant recipient 03/08/2011 kidney transplant, On Tacrolimus, sensipar no recent lab work. [facility] * Assessment & Plan Note - Ge Skelton APRN.CNP - 12/13/2023 8:20 AM EST Associated Problem(s): Pre-op exam Medical conditions which may affect the perioperative course were address in today's visit. documented in this encounter [facility] note* Diagnosis 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- Primary Corral's esophagus Gastroesophageal reflux disease without esophagitis Esophageal reflux Anemia, unspecified type Pre-op exam [Z01.818 (ICD-10-CM)] Preoperative examination, unspecified Chronic kidney disease, unspecified CKD stage [N18.9 (ICD-10-CM)] Pre-op exam Preoperative examination, unspecified Chronic kidney disease, unspecified CKD stage 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 Corral's esophagus Pre-op exam Preoperative examination, unspecified Kidney transplant recipient Anemia, unspecified type Hypothyroidism, unspecified type Anemia, unspecified Esophageal reflux 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 Corral's esophagus Kidney transplant recipient Pre-op exam Preoperative examination, unspecified Hypothyroidism Unspecified hypothyroidism Encounter for screening colonoscopy- Primary Special screening for malignant neoplasms, colon documented in this encounter [facility] note* Diagnosis 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- Primary Corral's esophagus Gastroesophageal reflux disease without esophagitis Esophageal reflux Anemia, unspecified type Pre-op exam [Z01.818 (ICD-10-CM)] Preoperative examination, unspecified Chronic kidney disease, unspecified CKD stage [N18.9 (ICD-10-CM)] Pre-op exam Preoperative examination, unspecified Chronic kidney disease, unspecified CKD stage 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 Corral's esophagus Pre-op exam Preoperative examination, unspecified Kidney transplant recipient Anemia, unspecified type Hypothyroidism, unspecified type Anemia, unspecified Esophageal reflux 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 Corral's esophagus Kidney transplant recipient Pre-op exam Preoperative examination, unspecified Hypothyroidism Unspecified hypothyroidism 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- Primary Corral's esophagus documented in this encounter [facility] note* Diagnosis 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- Primary Corral's esophagus Gastroesophageal reflux disease without esophagitis Esophageal reflux Anemia, unspecified type Pre-op exam [Z01.818 (ICD-10-CM)] Preoperative examination, unspecified Chronic kidney disease, unspecified CKD stage [N18.9 (ICD-10-CM)] Pre-op exam Preoperative examination, unspecified Chronic kidney disease, unspecified CKD stage 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 Corral's esophagus Pre-op exam Preoperative examination, unspecified Kidney transplant recipient Anemia, unspecified type Hypothyroidism, unspecified type Anemia, unspecified Esophageal reflux 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 Corral's esophagus Kidney transplant recipient Pre-op exam Preoperative examination, unspecified Hypothyroidism Unspecified hypothyroidism OPENED IN ERROR- Primary To allow closing an encounter opened in error (used in SmartSet) documented in this encounter [facility] note* Diagnosis Aftercare following organ transplant- Primary Kidney replaced by transplant ([facility]) Kidney replaced by transplant Hyperparathyroidism (Multi) Hyperparathyroidism, unspecified Hypertension secondary to other renal disorders Encounter for long-term (current) use of high-risk medication Encounter for long-term (current) use of other medications documented in this encounter [facility] Work Phone: Evaluation note* Diagnosis 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- Primary Corral's esophagus Gastroesophageal reflux disease without esophagitis Esophageal reflux Anemia, unspecified type Pre-op exam [Z01.818 (ICD-10-CM)] Preoperative examination, unspecified Chronic kidney disease, unspecified CKD stage [N18.9 (ICD-10-CM)] Pre-op exam Preoperative examination, unspecified Chronic kidney disease, unspecified CKD stage 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 Corral's esophagus Pre-op exam Preoperative examination, unspecified Kidney transplant recipient Anemia, unspecified type Hypothyroidism, unspecified type Anemia, unspecified Esophageal reflux 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 Corral's esophagus Kidney transplant recipient Hypothyroidism Unspecified hypothyroidism Preop examination- Primary Preoperative examination, unspecified 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 Procedures EGD DIAGNOSTIC ESOPHAGOGASTRODUODENOSC OPY TRANSORAL DIAGNOSTIC Yaw Apple MD 1 [facility] [employer] [address] [place] [phone] [address] [address] [place] [address] Referral ID Status Reason Start Date Expiration Date Visits Requested Visits Authorized [id number] Authorized Auto-Generat ed Referral 11/16/2022 10/23/2023 1 1 [facility] for referral (narrative)* Outpatient Procedure (Routine) - Closed Specialty Diagnoses / Procedures Referred By Juan cleaning Referred To Contact [facility] Diagnoses 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 [address] [place] [address] Referral ID Status Reason Start Date Expiration Date V isits Requested Visits Authorized [id number] Closed Auto-Generate d Referral 11/16/2022 10/23/2023 1 1 [facility] for referral (narrative)* Outpatient Procedure (Routine) - Authorized Specialty Diagnoses / Procedures [facility] Referred To Contact [facility] Diagnoses Encounter for screening colonoscopy Procedures COLONOSCOPY SCREENING COLONOSCOPY FLX DX W/COLLJ SPEC WHEN PFRMD Yaw Apple MD 1 [employer] [address] [place] [address] [address] Referral ID Status Reason Start Date Expiration Date Visits Requested Visits Authorized [id number] Authorized Auto-Generat ed Referral 4 08/13/2025 1 1 [facility] for referral (narrative)* Outpatient Procedure (Routine) - Authorized Specialty Diagnoses / Procedures Referred By Juan cleaning Referred To Contact [facility] Diagnoses 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 Procedures EGD DIAGNOSTIC ESOPHAGOGASTRODUODENOSC OPY TRANSORAL DIAGNOSTIC Yaw Apple MD [address] [place] [address] [id number] [place] [address] Referral ID Status Reason Start Date Expiration Date Visits Requested Visits Authorized [id number] Authorized Auto-Generat ed Referral 4 08/13/2025 1 1 [facility] for referral (narrative)No reason for referral information availableWPremier Health [facility] Work Phone: Reason for visit Narrative* Outpatient Procedure (Routine) - Closed Specialty Diagnoses / Procedures Referred By Juan cleaning Referred To Contact [facility] Diagnoses 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 Procedures EGD DIAGNOSTIC ESOPHAGOGASTRODUODENOSC OPY TRANSORAL DIAGNOSTIC Yaw Apple MD [address] [place] [address] [address] Referral ID Status Reason Start Date Expiration Date V isits Requested Visits Authorized [id number] Closed Auto-Generate d Referral 11/16/2022 10/23/2023 1 1 [facility] for visit Narrative* Outpatient Procedure (Routine) - Closed Specialty Diagnoses / Procedures Referred By Juan cleaning Referred To Contact [facility] Diagnoses 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 Procedures EGD DIAGNOSTIC ESOPHAGOGASTRODUODENOSC OPY TRANSORAL DIAGNOSTIC Yaw Apple MD [address] [facility] [address] [place] [address] [address] Referral ID Status Reason Start Date Expiration Date V isits Requested Visits Authorized [id number] Closed Auto-Generate d Referral 12/13/2023 11/01/2024 [facility] Outpatient Procedure (Routine) - Closed Specialty Diagnoses / Procedures Referred By Juan cleaning Referred To Contact [facility] Diagnoses Encounter for screening colonoscopy Procedures COLONOSCOPY SCREENING COLONOSCOPY FLX DX W/COLLJ SPEC WHEN PFRMD Yaw Apple MD [address] [facility] [address] [place] [address] [address] Referral ID Status Reason Start Date Expiration Date V isits Requested Visits Authorized [id number] Closed Auto-Generate d Referral 08/28/2024 08/13/2025 1 1 [facility] Family History No Family History Records FoundUnknown Family Member Name Dates Details No pertinent family history( V49.89, Z78.9) Comments:Other Status:Active Unknown Family Member Name Dates Details No pertinent family history( V49.89, Z78.9) Comments:Other Status:Active Unknown Family Member Name Dates Details No pertinent family history: Other(V49.89, Z78.9) Status:Active Unknown Family Member Name Dates Details No pertinent family history: Other(V49.89, Z78.9) Status:Active Unknown Family Member Name Dates Details No pertinent family history: Other(V49.89, Z78.9) Status:Active Unknown Family Member Name Dates Details No pertinent family history: Other(V49.89, Z78.9) Status:Active Unknown Family Member Name Dates Details No pertinent family history: Other(V49.89, Z78.9) Status:Active Unknown Family Member Name Dates Details No pertinent family history: Other(V49.89, Z78.9) Status:Active Unknown Family Member Name Dates Details No pertinent family history: Other(V49.89, Z78.9) Status:Active Relationship Condition Age at Onset Recorded Date/T cony father Non-Hodgkin's lymphoma Unknown brother History of malignant neoplasm of esophagus Unknown brother Diabetes mellitus Unknown Coronary artery disease Unknown Obesity Unknown Hepatic cirrhosis Unknown Kidney disorder Unknown son Non-Hodgkin's lymphoma Unknown Summary Purpose Advance Directives No Advanced Directives Records Found Advance Directive Response Recorded Date/ Time Living Will No January 17, 2019 10:24am Power of Adjuster And Inspector No January 17 10:24am Advance Directive Response Recorded Date/ Time Living Will No January 17, 2019 9:24am Power of Adjuster And Inspector No January 17 9:24am Advance Directive Response Recorded Date/ Time Living Will Yes June 21 9:09am Do you have a Healthcare Power of Adjuster And Inspector? Yes June 21, 2024 9:09am Living Will No September 13 12:57am Do you have a Healthcare Power of Adjuster And Inspector? No September 13, 2024 12:57am Living Will No December 12, 2024 6:06am Do you have a Healthcare Power of Adjuster And Inspector? No December 12, 2024 6:06am Advance Directive Response Recorded Date/ Time Living Will No December 12, 2024 6:06am Do you have a Healthcare Power of Adjuster And Inspector? No December 12, 2024 6:06am Advance Directive Response Recorded Date/ Time Living Will No March 14, 2025 6 :56pm Do you have a Healthcare Power of Adjuster And Inspector? No March 14, 2025 6:56pm Living Will No December 12, 2024 6:06am Do you have a Healthcare Power of Adjuster And Inspector? No December 12, 2024 6:06am Advance Directive Response Recorded Date/ Time Living Will No March 14, 2025 6 :56pm Do you have a Healthcare Power of Adjuster And Inspector? No March 14, 2025 6:56pm Advance Directive Response Recorded Date/ Time Living Will Yes June 21 9:09am Do you have a Healthcare Power of Adjuster And Inspector? Yes June 21, 2024 9:09am Living Will No March 14, 2025 6 :56pm Do you have a Healthcare Power of Adjuster And Inspector? No March 14, 2025 6:56pm Chief Complaint Post transplant follow up* A telephone visit (audio only) between the patient (at the originating site) and the provider (at the distant site) was utilized to provide this telehealth service. * Verbal consent was requested and obtained from MU LINCOLN on this date, 11/21/2022 02:40 PM , fora telehealth visit. * Post kidney transplant follow up. * A telephone visit (audio only) between the patient (at the originating site) and the provider (at the distant site) was utilized to provide this telehealth service. * Verbal consent was requested and obtained from MU LINCOLN on this date, 11/21/2022 02:40 PM , fora telehealth visit. * Post kidney transplant follow up. Chief Complaint and Reason for Visit Chief Complaint S/O EVERY 3 MONTHS NEED ORDER Chief Complaint NEED ORDER EVUSHELD S/O Chief Complaint NEED ORDER EVUSHELD S/O screening Chief Complaint screening S/O Chief Complaint S/O Chief Complaint S/O EVUSHELD Chief Complaint EVUSHELD S/O EVERY 3 MONTHS Chief Complaint S/O EVERY 3 MONTHS S/O EVERY 3 MONTHS HAND PARETHESIA RX HERE Chief Complaint S/O EVERY 3 MONTHS HAND PARETHESIA RX HERE S/O EVERY 3 MONTHS Chief Complaint S/O EVERY 3 MONTHS Amb Documentation EST (SELF) Abnormal electrocardiogram [ECG] [EKG], HTN Amb Documentation Reason for Visit Bruit Kidney transplanted Chief Complaint Amb Documentation EST (SELF) Abnormal electrocardiogram [ECG] [EKG], HTN Amb Documentation S/O EVERY 3 MONTHS POSITIONAL HAND PARASTHESIA / RX HERE Reason for Visit Bruit Kidney transplanted Chief Complaint POSITIONAL HAND PARA STHESIA / RX HERE S/O EVERY 3 MONTHS Chief Complaint Admit Date S/O EVERY 3 MONTHS November 23, 2024 7:31am 6 M BREAST CHECK December 10, 2024 2:06pm 3 MO - LABS December 16, 2024 10:3 8am 3 MO - LABS December 16, 2024 10:4 5am S/O EVERY 3 MONTHS February 12, 2025 7:41am Reason for Visit Admit Date 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, 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 S/P left mastectomy December 10, 2024 2:06pm Anemia December 16, 2024 10:3 8am Ductal carcinoma in situ (DCIS) of left breast December 16, 2024 10:38am Chief Complaint Admit Date S/O EVERY 3 MONTHS February 12, 2025 7:41am screening for breast cancer April 21 9:54am Chief Complaint Admit Date S/O EVERY 3 MONTHS February 12, 2025 7:41am screening for breast cancer April 21 9:54am S/O EVERY 3 MONTHS May 14, 2025 7:4 0am 6 M BREAST RECALL June 11, 2025 9: 26am Chief Complaint Admit Date screening for breast cancer April 21 9:54am S/O EVERY 3 MONTHS May 14, 2025 7:4 0am 6 M BREAST RECALL June 11, 2025 9: 26am Chief Complaint Admit Date screening for breast cancer April 21 9:54am S/O EVERY 3 MONTHS May 14, 2025 7:4 0am 6 M BREAST RECALL June 11, 2025 9: 26am 4 MO - LABS - REVIEW MAMMO-MOVED FROM June 23, 2025 9:37am 3 MO - LABS June 23, 2025 9:45am Reason for Visit Admit Date Ductal carcinoma in situ (DCIS) of left breast June 11, 2025 9:26am S/P left mastectomy June 11, 2025 9: 26am Ductal carcinoma in situ (DCIS) of left breast June 23, 2025 9:37am Medications Administered Section Inactive Administered Medications - up to 3 most recent administrations Medication Order MAR Action Action Date Dose Rate Site lactated ringers iv infusion 30 mL/hr, INTRAVENOUS, CONTINUOUS, Starting on Sat11/16/22 at 0930, Until Sat11/16/22 at 1027, Preprocedure Restarted 11/16/2022 10:08 AM EST New Bag/Syringe/Bottle 11/16/2022 9:26 AM EST 30 mL/hr 3 0 mL/hr Additional Source Comments INFORMATION SOURCE (unrecogn ized section and content) DATE CREATED AUTHOR [facility] [facility] DATE CREATED AUTHOR AUTHOR'S ORGANIZ ATION 12/15/2021 [facility] DATE CREATED AUTHOR AUTHOR'S ORGANIZ ATION 12/11/2022 [employer] DATE CREATED AUTHOR AUTHOR'S ORGANIZ ATION 01/13/2023 [facility] DATE CREATED AUTHOR AUTHOR'S ORGANIZ ATION 07/26/2023 [facility] DATE CREATED AUTHOR AUTHOR'S ORGANIZ ATION 09/12/2024 [facility] DATE CREATED AUTHOR AUTHOR'S ORGANIZ ATION 08/19/2025 [facility] DATE CREATED AUTHOR AUTHOR'S ORGANIZ ATION 08/25/2025 [facility] Goals (unrecognized section and content) Goals may be documented in a n alternate sectionGoals may be documented in an alternate sectionGoals may be documented in an alternate sectionGoals may be documented in an alternate sectionGoals may be documented in an alternate sectionGoals may be documented in an alternate sectionGoals may be documented in an alternate sectionGoals may be documented in an alternate sectionGoals may be documented in an alternate sectionGoals may be documented in an alternate sectionGoals may be documented in an alternate sectionGoals may be documented in an alternate sectionGoals may be documented in an alternate sectionGoals may be documented in an alternate sectionGoals may be documented in an alternate sectionGoals may be documented in an alternate sectionGoals may be documented in an alternate sectionGoals may be documented in an alternate sectionGoals may be documented in an alternate sectionGoals may be documented in an alternate section Source Comments (unrecognize d section and content) In the event this informatio n is protected by the Federal Confidentiality of Alcohol and Drug Abuse Patient Records regulations: The Federal rules restrict any use of the information to criminally investigate or prosecute any alcohol or drug abuse patient.[facility] HospitalIn the event this information is protected by the Federal Confidentiality of Alcohol and Drug Abuse Patient Records regulations: The Federal rules restrict any use of the information to criminally investigate or prosecute any alcohol or drug abuse patient.[facility] HospitalIn the event this information is protected by the Federal Confidentiality of Alcohol and Drug Abuse Patient Records regulations: The Federal rules restrict any use of the information to criminally investigate or prosecute any alcohol or drug abuse patient.[facility] HospitalIn the event this information is protected by the Federal Confidentiality of Alcohol and Drug Abuse Patient Records regulations: The Federal rules restrict any use of the information to criminally investigate or prosecute any alcohol or drug abuse patient.[facility] HospitalIn the event this information is protected by the Federal Confidentiality of Alcohol and Drug Abuse Patient Records regulations: The Federal rules restrict any use of the information to criminally investigate or prosecute any alcohol or drug abuse patient.[facility] HospitalIn the event this information is protected by the Federal Confidentiality of Alcohol and Drug Abuse Patient Records regulations: The Federal rules restrict any use of the information to criminally investigate or prosecute any alcohol or drug abuse patient.[facility] HospitalIn the event this information is protected by the Federal Confidentiality of Alcohol and Drug Abuse Patient Records regulations: The Federal rules restrict any use of the information to criminally investigate or prosecute any alcohol or drug abuse patient.[facility] HospitalIn the event this information is protected by the Federal Confidentiality of Alcohol and Drug Abuse Patient Records regulations: The Federal rules restrict any use of the information to criminally investigate or prosecute any alcohol or drug abuse patient.[facility] HospitalIn the event this information is protected by the Federal Confidentiality of Alcohol and Drug Abuse Patient Records regulations: The Federal rules restrict any use of the information to criminally investigate or prosecute any alcohol or drug abuse patient.[facility] HospitalIn the event this information is protected by the Federal Confidentiality of Alcohol and Drug Abuse Patient Records regulations: The Federal rules restrict any use of the information to criminally investigate or prosecute any alcohol or drug abuse patient.[facility] HospitalIn the event this information is protected by the Federal Confidentiality of Alcohol and Drug Abuse Patient Records regulations: The Federal rules restrict any use of the information to criminally investigate or prosecute any alcohol or drug abuse patient.[facility] HospitalIn the event this information is protected by the Federal Confidentiality of Alcohol and Drug Abuse Patient Records regulations: The Federal rules restrict any use of the information to criminally investigate or prosecute any alcohol or drug abuse patient.[facility] HospitalIn the event this information is protected by the Federal Confidentiality of Alcohol and Drug Abuse Patient Records regulations: The Federal rules restrict any use of the information to criminally investigate or prosecute any alcohol or drug abuse patient.[facility] HospitalIn the event this information is protected by the Federal Confidentiality of Alcohol and Drug Abuse Patient Records regulations: The Federal rules restrict any use of the information to criminally investigate or prosecute any alcohol or drug abuse patient.[facility] Care Teams (unrecognized sec tion and content) Manufacturer Agent Relationship Specialty Start Date End Date Osman See MD PCP - General Family Medicine 08/20/16 Manufacturer Agent Relationship Specialty Start Date End Date Osman See MD PCP - General Family Medicine 08/20/16 Manufacturer Agent Relationship Specialty Start Date End Date Osman See MD PCP - General Family Medicine 08/20/16 Manufacturer Agent Relationship Specialty Start Date End Date Osman See MD PCP - General Family Medicine 08/20/16 Team Status: Active Member Role Status Dates Dr. Osman See MD Family Provider Active Dr. Osman See MD Primary Care Provider Active Team Status: Inactive Member Role Status Dates Dr. Osman See MD Primary Care Provide r, Attending Provider, Referring Provider Active Team Status: Inactive Member Role Status Dates Dr. Osman See MD Primary Care Provider, Family Prov ider Active HERBERTH MIRELES Attending Provider, Referring Pro vider Active Team Status: Inactive Member Role Status Dates Dr. Osman See MD Primary Care Provider Active EDAN KEVIN Attending Provider, Referring Pro vider Active Team Status: Active Member Role Status Dates Dr. Osman See MD Primary Care Provide r, Attending Provider, Referring Provider Active Team Status: Active Member Role Status Dates Dr. Osman See MD Primary Care Provider, Family Prov ider Active HERBERTH MIRELES Attending Provider, Referring Pro vider Active Manufacturer Agent Relationship Specialty Start Date End Date Osman See MD PCP - General Family Medicine 08/20/16 Team Status: Inactive Member Role Status Dates Dr. Osman See MD Primary Care Provider, Referring P rovider Active Dr. Alexander Torres MD Attending Provider Active Team Status: Active Member Role Status Dates Dr. Osman See MD Primary Care Provider Active Parris Whitaker RN Attending Provider Active Team Status: Active Member Role Status Dates Dr. Osman See MD Primary Care Provider Active Dr. Alexander Torres MD Attending Provider Active Team Status: Active Member Role Status Dates Dr. Osman See MD Primary Care Provider Active Dr. Osman Hankins MD Attending Provider Active Team Status: Active Member Role Status Dates Dr. Osman See MD Primary Care Provider Active Ann Bess NP, EXTRAS CASTING DIRECTOR-C Attending Provider Active Team Status: Inactive Member Role Status Dates Dr. Osman See MD Primary Care Provider Active Dr. Alexander Torres MD Attending Provider, Referring Pro vider Active Team Status: Active Member Role Status Dates Dr. Osman See MD Primary Care Provider Active Dr. Osman Hankins MD Attending Provider Active Dr. Alexander Torres MD Referring Provider Active Team Status: Active Member Role Status Dates Dr. Osman See MD Primary Care Provider, Attending P rovider Active Team Status: Inactive Member Role Status Dates Dr. Osman See MD Primary Care Provider, Attending P rovider Active Manufacturer Agent Relationship Specialty Start Date End Date Osman See MD PCP - General Family Medicine 08/20/16 Manufacturer Agent Relationship Specialty Start Date End Date Osman See MD PCP - General Family Medicine 08/20/16 Manufacturer Agent Relationship Specialty Start Date End Date Osman See MD PCP - General Family Medicine 08/20/16 Manufacturer Agent Relationship Specialty Start Date End Date Osman See MD PCP - General Family Medicine 08/20/16 Manufacturer Agent Relationship Specialty Start Date End Date Madelyn Kristen Page DO [address] [facility] [address] [place], [place] [address] PCP - General 10/17/11 Manufacturer Agent Relationship Specialty Start Date End Date Osman See MD PCP - General Family Medicine 08/20/16 Manufacturer Agent Relationship Specialty Start Date End Date Osman See MD PCP - General Family Medicine 08/20/16 [place] [address] [place] [address] [id number] General Surgery 09/09/24 Team Status: Inactive Member Role Status Dates Dr. Osman See MD Primary Care Provider Active Start: November 23, 2024 End: December 11, 2024 Dr. Osman See MD Family Provider Active Start : November 23, 2024 End: December 11, 2024 HERBERTH MIRELES Attending Provider Active S tart: November 23, 2024 End: December 11, 2024 HERBERTH MIRELES Referring Provider Active S tart: November 23, 2024 End: December 11, 2024 Team Status: Inactive Member Role Status Dates Dr. Osman See MD Primary Care Provider Active Start: December 10, 2024 End: December 10, 2024 Dr. Osman See MD Referring Provider Active St art: December 10, 2024 End: December 10, 2024 Dr. Mandy Tse MD Attending Provider Active Start: December 10, 2024 End: December 10, 2024 Team Status: Inactive Member Role Status Dates Dr. Osman See MD Primary Care Provider Active Start: December 16, 2024 End: December 16, 2024 Dr. Osman See MD Referring Provider Active St art: December 16, 2024 End: December 16, 2024 Alisha Abdalla EXTRAS CASTING DIRECTOR, EXTRAS CASTING DIRECTOR-C Attending Provider Active Start: December 16, 2024 End: December 16, 2024 Team Status: Active Member Role Status Dates Dr. Osman See MD Primary Care Provider Active Start: December 16, 2024 Dr. Reji Kohli MD Attending Provider Active Start: December 16, 2024 Dr. Reji Kohli MD Referring Provider Active Start: December 16, 2024 Team Status: Inactive Member Role Status Dates Dr. Osman See MD Primary Care Provider Active Start: February 12, 2025 End: February 12, 2025 Dr. Osman See MD Family Provider Active Start : February 12, 2025 End: February 12, 2025 HERBERTH MIRELES Attending Provider Active S tart: February 12, 2025 End: February 12, 2025 ARKSGREGP, JITTIRAT Referring Provider Active S tart: February 12, 2025 End: February 12, 2025 Team Status: Active Member Role/Relationship Status Dates Dr. Osman See MD Primary Care Provider Active Team Status: Inactive Member Role/Relationship Status Dates Dr. Osman See MD Primary Care Provider Active Start: February 12, 2025 End: February 12, 2025 Dr. Osman See MD Family Provider Active Start : February 12, 2025 End: February 12, 2025 ARROSE AGUILARTTIRAT Attending Provider Active S tart: February 12, 2025 End: February 12, 2025 ARKSGREGP, JITTIRAT Referring Provider Active S tart: February 12, 2025 End: February 12, 2025 Team Status: Inactive Member Role/Relationship Status Dates Dr. Osman See MD Primary Care Provider Active Start: April 21, 2025 End: April 21, 2025 Alisha Abdalla EXTRAS CASTING DIRECTOR, EXTRAS CASTING DIRECTOR-C Attending Provider Active Start: April 21, 2025 End: April 21, 2025 Alishalavonne Abdalla EXTRAS CASTING DIRECTOR, EXTRAS CASTING DIRECTOR-C Referring Provider Active Start: April 21, 2025 End: April 21, 2025 Team Status: Active Member Role/Relationship Status Dates Dr. Osman See MD Family Provider Active Dr. Osman See MD Primary Care Provider Active Team Status: Active Member Role/Relationship Status Dates Dr. Osman See MD Primary Care Provider Active Start: May 14, 2025 Dr. Osman See MD Family Provider Active Start : May 14, 2025 [email or web address], ROSETTIRAT Attending Provider Active S tart: May 14, 2025 ARKSARAPUK, JITTIRAT Referring Provider Active S tart: May 14, 2025 Team Status: Inactive Member Role/Relationship Status Dates Dr. Osman See MD Primary Care Provider Active Start: June 11, 2025 End: June 11, 2025 Dr. Osman See MD Referring Provider Active St art: June 11, 2025 End: June 11, 2025 Dr. Mandy Tse MD Attending Provider Active Start: June 11, 2025 End: June 11, 2025 Team Status: Inactive Member Role/Relationship Status Dates Dr. Osman See MD Primary Care Provider Active Start: April 21, 2025 End: April 21, 2025 Alishalavonne Abdalla EXTRAS CASTING DIRECTOR, EXTRAS CASTING DIRECTOR-C Attending Provider Active Start: April 21, 2025 End: April 21, 2025 Alishalavonne MorrisonRm EXTRAS CASTING DIRECTOR, EXTRAS CASTING DIRECTOR-C Referring Provider Active Start: April 21, 2025 End: April 21, 2025 Team Status: Inactive Member Role/Relationship Status Dates Dr. Osman See MD Primary Care Provider Active Start: May 14, 2025 End: May 14, 2025 Dr. Osman See MD Family Provider Active Start : May 14, 2025 End: May 14, 2025 ARKSGREGP, JITTIRAT Attending Provider Active S tart: May 14, 2025 End: May 14, 2025 ARKSARAPUK, JITTIRAT Referring Provider Active S tart: May 14, 2025 End: May 14, 2025 Team Status: Inactive Member Role/Relationship Status Dates Dr. Osman See MD Primary Care Provider Active Start: June 11, 2025 End: June 11, 2025 Dr. Osman See MD Referring Provider Active St art: June 11, 2025 End: June 11, 2025 Dr. Mandy Tse MD Attending Provider Active Start: June 11, 2025 End: June 11, 2025 Team Status: Inactive Member Role/Relationship Status Dates Dr. Osman See MD Primary Care Provider Active Start: June 23, 2025 End: June 23, 2025 Dr. Osman See MD Referring Provider Active St art: June 23, 2025 End: June 23, 2025 Dr. Reji Kohli MD Attending Provider Active Start: June 23, 2025 End: June 23, 2025 Team Status: Active Member Role/Relationship Status Dates Dr. Osman See MD Primary Care Provider Active Start: June 23, 2025 Dr. Reji Kohli MD Attending Provider Active Start: June 23, 2025 Dr. Reji Kohli MD Referring Provider Active Start: June 23, 2025 Reason for Visit (unrecogniz ed section and content) Reason Comments Refill Request Reason Comments Results Reason Comments Future Appointment EGD & colonoscopy Reason Comments Opened In Error Inactive Administered Medications - up to 3 most recent administrations Administered Medications (un recognized section and content) Medication Order MAR Action Action Date Dose Rate Site lactated ringers iv infusion 30 mL/hr, INTRAVENOUS, CONTINUOUS, Starting on Sat12/13/23 at 0830, Until Sat12/13/23 at 0913, Preprocedure New Bag/Syringe/Jennie le 12/13/2023 8:40 AM EST 30 mL/hr 30 mL/hr Forearm, Right FOR RECORDS PERTAINING TO PATIENTS WHO ARE OR HAVE BEEN ENROLLED IN A CHEMICAL DEPENDENCY/SUBSTANCEABUSE PROGRAM, SOME INFORMATION MAY BE OMITTED. This clinical summary was aggregated from multiple sources. Caution should be exercised in using it in the provision of clinical care. This summary normalizes information from multiple sources, and as a consequence, information in this document may materially change the coding, format and clinical context of patient data. In addition, data may be omitted in some cases. CLINICAL DECISIONS SHOULD BE BASED ON THE PRIMARY CLINICAL RECORDS. [employer] provides no warranty or guarantee of the accuracy or completeness of information in this document.
== END | disposition home or self-care (01) ==
PROVIDERS: PCP Family Medicine
DX: R10.31 Right lower quadrant pain (principal); R05.9 Cough, unspecified; E03.9 Hypothyroidism, unspecified; E55.9 Vitamin D deficiency, unspecified
CPT/HCPCS: 36415; 74018; 80053; 82306; 84439; 84443; 85025; 86140

== ENCOUNTER → 2025-09-29 | Outpatient (CLI) | payer MEDICARE, BC, SELFPAY ==
--- NOTE | 2025-09-29 09:55 | CT_ITS ---
PROCEDURE: ABDOMEN/PELVIS WITH CONTRAST 09/29/2025 REASON FOR EXAM: XRAY NEG: ABD PAIN: STAT Right lower quadrant pain. History of prior renal transplant. Prior hysterectomy. TECHNIQUE: Procedure Code: [id number] Modality: CT Procedure: ABDOMEN/PELVIS WITH CONTRAST Coronal and Sagittal reconstruction series were provided. CONTRAST: Isovue-300 VOLUME: 75 mL One or more dose reduction techniques were used (e.g., Automated exposure control, adjustment of the mA and/or kV according to patient size, use of iterative reconstruction technique. RADIATION DOSE SUMMARY: CTDlvol: 6.36 mGy DLP: 256.52 mGycm COMPARISON: None FINDINGS: Lung bases: Minimal increased markings at the lung bases suggestive of mild scarring. Focal scarring in the posterior aspect of the lingular segment of the left upper lobe. There is calcification of the mitral valve annulus. Coronary artery calcification. Findings suggestive of a 3.9 cm by 3.4 cm right pericardial cyst. Liver: Normal size. No mass. Gallbladder: Questionable sludge versus tiny gallstones. Spleen: Normal size. Pancreas: Normal size without evidence of mass surrounding inflammation or ductal dilation. Adrenals: Unremarkable Kidneys: Marked degree of atrophy with cortical calcification in both kidneys. Bilateral renal cysts more prominent on the left side. Largest cyst is in the lower pole of the left kidney and measures 5.5 cm by 3.7 cm. A transplant kidney is seen in the right lower quadrant. Bladder: Unremarkable Reproductive Organs: Status post hysterectomy. Bowel: Diffuse sigmoid diverticulosis with mild diverticulitis. Appendix: The appendix is not identified. There is no inflammatory process identified in the right lower quadrant to suggest appendicitis. Lymph nodes: No suspicious lymph node enlargement. Vasculature: Mild diffuse atherosclerotic calcifications are noted. Peritoneum / Retroperitoneum: Unremarkable Bones: Degenerative changes of the spine. CT/Abdomen/Pelvis WITH Contrast IMPRESSION: Status post right renal transplant. Calcification and atrophy of both [place] kidneys with the renal cysts worse on the left side. Questionable sludge versus tiny gallstones layering in the dependent portion of the gallbladder lumen. Diffuse sigmoid diverticulosis. Questionable mild degree of non complicated di verticulitis. Reading Location: [id number]
== END | disposition home or self-care (01) ==
LOC: CT 09:50
PROVIDERS: PCP Family Medicine
DX: R10.31 Right lower quadrant pain (principal)
CPT/HCPCS: 74177; Q9967; A4216